=== PATIENT | female | born 2005 | race Caucasian/White ===

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

== ENCOUNTER 2024-03-03 17:45 | Outpatient (REF) | payer MEDICAID, SELFPAY | END 2024-03-03 17:46 | disposition home or self-care (01) | LOC: LBN 17:45 | PROVIDERS: PCP Pediatrics; Visit Provider Physician Assistant | DX: J02.9 Acute pharyngitis, unspecified (principal) | CPT/HCPCS: 87070 ==

== ENCOUNTER 2024-03-30 21:10 | Emergency (ER) | payer MEDICAID, SELFPAY ==
[2024-03-30 21:17] VITALS: BP 150/85; PULSE 70; RESP 20; TEMP 37.1; O2SAT 98
--- NOTE | 2024-03-30 21:27 | W.ED.GENAD ---
Discharge Plan Disposition Patient Disposition: Home Condition: Stable Discharge Details Clinical Impression: Sprain of left shoulder Primary Care Provider: Trell Pittman ED Provider: Trell Araujo Home Meds and New Rx's Prescriptions: New ketorolac 10 mg tablet 10 mg PO QID PRN5 Days Qty: 20 0RF Rx Instructions: maximum total duration of 5 days from all oral, intranasal, or parenteral formulations Continued albuterol sulfate 2.5 mg /3 mL (0.083 %) solution for nebulization 2.5 mg Inhalation Q4H PRN Qty: 90 1RF Rx Instructions: Use 1 vial via nebulizer q4h prn cough/wheeze budesonide-formoterol [Symbicort] 160-4.5 mcg/actuation HFA aerosol inhaler 2 puff Inhalation DAILY Qty: 1 0RF epinephrine [EpiPen 2-Jaswinder] 0.3 mg/0.3 mL auto-injector 0.3 mg IM ONCE Qty: 1 1RF Rx Instructions: use according to package directions for exposure to bee sting albuterol sulfate [Ventolin HFA] 90 mcg/actuation HFA aerosol inhaler See Rx Instructions .ROUTE .COMPLEX Qty: 36 0RF Dose Instruction: INHALE 2 PUFFS BY MOUTH EVERY 4 HOURS NEEDED FOR SHORTNESS OF BREATH OR WHEEZING Rx Instructions: INHALE 2 PUFFS BY MOUTH EVERY 4 HOURS NEEDED FOR SHORTNESS OF BREATH OR WHEEZING All Day Allergy (cetirizine) 10 mg capsule 10 mg PO DAILY Qty: 30 5RF montelukast [Singulair] 10 mg tablet 10 mg PO DAILY Qty: 30 2RF Discharge Instructions Instructions: Shoulder Sprain ED Additional Instructions: You were seen in the emergency department for your left shoulder sprain or strain, you may have a minor rotator cuff tear but this will not become evident for 1 to 2 weeks as you treat symptomatically at home. As we discussed you need to be taking regular dose of Tylenol and in the prescribed ketorolac. Do not take Aleve or Advil with ketorolac. Please rest and ice the shoulder, frequently perform pendulum exercises as we discussed, if you still have pain in 3+ weeks please follow-up with orthopedics for possible rotator cuff evaluation, please return to the emergency department for any sign of neurovascular compromise to the arm. Referrals: [facility] [Provider Group] Trell Pittman MD [Primary Care Provider] - Discharge Data Discharge Date/Time-TO BE ENTERED AT DEPARTURE: 03/30/24 21:41 HPI General Date/Time Provider Initiated Documentation: 03/30/24 21:21. HPI Narrative: 18 year-old female presents to ED today by POV/ambulating with a chief complaint of L shoulder pain, R-hand dominant, with onset today after lifting a heavy tote bag. Quality described as burning type pain, felt shoulder give out, no radiation to numbness/tingling, swelling, deformity, skin changes, neck pain. Severity is described as moderate. Palliating factors include nothing attempted. Provoking factors include nothing specific. Events leading up to the incident/Associated Symptoms: Patient can raise her arm over her head without issue. Patient not anticoagulated. Related Data Home Medications ?Medication ?Instructions ?Recorded ?Confirmed budesonide-formoterol HFA 160 2 puff inhalation DAILY ##1 11/28/18 03/30/24 mcg-4.5 mcg/actuation aerosol inhaler (Symbicort) albuterol sulfate 2.5 mg/3 mL 2.5 mg (3 mL) inhalation Q4H PRN 07/28/22 03/30/24 (0.083 %) solution for nebulization #90 mL epinephrine 0.3 mg/0.3 mL 0.3 mg (0.3 mL) IM ONCE #1 ea 11/06/22 03/30/24 injection, auto-injector (EpiPen 2-Jaswinder) albuterol sulfate 90 mcg/actuation See Rx Instructions .Route 10/26/23 03/30/24 aerosol inhaler (Ventolin HFA) .COMPLEX #36 grams cetirizine 10 mg capsule (All Day 10 mg PO DAILY #30 caps 02/26/24 03/30/24 Allergy (cetirizine)) montelukast 10 mg tablet 10 mg PO DAILY #30 tabs 03/17/24 03/30/24 (Singulair) ketorolac 10 mg tablet 10 mg PO QID PRN 5 days #20 tabs 03/30/24 Previous Rx's ?Medication ?Instructions ?Recorded budesonide-formoterol HFA 160 2 puff inhalation DAILY ##1 11/28/18 mcg-4.5 mcg/actuation aerosol inhaler (Symbicort) albuterol sulfate 2.5 mg/3 mL 2.5 mg (3 mL) inhalation Q4H PRN 07/28/22 (0.083 %) solution for nebulization #90 mL epinephrine 0.3 mg/0.3 mL 0.3 mg (0.3 mL) IM ONCE #1 ea 11/06/22 injection, auto-injector (EpiPen 2-Jaswinder) albuterol sulfate 90 mcg/actuation See Rx Instructions .Route 10/26/23 aerosol inhaler (Ventolin HFA) .COMPLEX #36 grams cetirizine 10 mg capsule (All Day 10 mg PO DAILY #30 caps 02/26/24 Allergy (cetirizine)) montelukast 10 mg tablet 10 mg PO DAILY #30 tabs 03/17/24 (Singulair) ketorolac 10 mg tablet 10 mg PO QID PRN 5 days #20 tabs 03/30/24 Allergies Allergy/AdvReac Type Severity Reaction Status Date / Time venom-honey bee (bee venom Allergy Severe Anaphylaxis Verified 03/30/24 21:21 (honey bee)) adhesive AdvReac Mild Skin Rash Verified 03/30/24 21:21 milk AdvReac Mild mucousy/ Verified 03/30/24 21:21 pleghm Penicillins AdvReac Unknown Unverified 03/30/24 21:21 General Stated Complaint: Orthopedic MARIIA: 4 Review of Systems All systems reviewed & are unremarkable except as noted in HPI and below Exam Narrative Exam Narrative: GENERAL APPEARANCE: Well-nourished, non-toxic, awake and alert, atraumatic, no acute distress. SKIN: Warm, pink, dry, intact, without rashes/lesions/ulcerations. HEAD: Normocephalic, atraumatic, normal hair distribution for gender/age. EYES: Normal conjunctiva, no exudates on lids/lashes. ENT: Nares patent, no circumoral cyanosis, no facial swelling NECK: Supple, trachea midline, painless cervical ROM. LUNGS/CHEST: Non-labored respirations, normal A/P diameter, symmetrical expansion, no chest wall deformity HEART (CV/PV): Regular rate, L radial pulse 2+, no peripheral edema, no JVD. ABDOMEN: Soft, non-distended, no guarding. MSK: Normal ROM, no swelling/deformity to bilateral UEs or LEs, moving all extremities without weakness, no cyanosis, spine midline without tenderness, normal curvature, no overt tenderness or swelling or crepitus to the L shoulder, speeds and empty can negative, full range of motion NEURO: Mental Status AAOx4 - alert to person, place, time, events No facial droop, no forehead involvement. Motor: No focal weakness - strength 5/5 in bilateral UEs and LEs, proximal and distal, symmetric. Sensory: sensation intact to light touch globally. Gait normal: patient ambulated without ataxia into ED room. PSYCH: euthymic, cooperative, pleasant, appropriate speech Course Vital Signs Vital signs: Vital Signs Temperature 37.1 C 03/30/24 21:17 Pulse 70 03/30/24 21:17 Respiratory Rate 20 03/30/24 21:17 Blood Pressure 150/85 H 03/30/24 21:17 Pulse Oximetry 98 03/30/24 21:17 Temperature 37.1 C 03/30/24 21:17 Pulse 70 03/30/24 21:17 Respiratory Rate 20 03/30/24 21:17 Respiratory Effort Normal 03/30/24 21:20 Blood Pressure 150/85 H 03/30/24 21:17 Blood Pressure Position Sitting 03/30/24 21:17 Pulse Oximetry 98 03/30/24 21:17 Oxygen Delivery Method Room Air 03/30/24 21:17 Oxygen Flow Rate 0 03/30/24 21:17 Medical Decision Making This dictation utilizes [id number] dictation software and may contain unedited grammatical errors. 18 year-old female presents to ED today by POV/ambulating with a chief complaint of L shoulder pain, R-hand dominant, with onset today after lifting a heavy tote bag. Quality described as burning type pain, felt shoulder give out, no radiation to numbness/tingling, swelling, deformity, skin changes, neck pain. Severity is described as moderate. Palliating factors include nothing attempted. Provoking factors include nothing specific. Events leading up to the incident/Associated Symptoms: Patient can raise her arm over her head without issue. Patients' medical history: Noncontributory. Family and social history: Noncontributory. Pertinent exam findings / vital signs include full strength and range of motion of the left arm, left radial pulse 2+, speeds and empty can negative. Differential / pathologies of concern include shoulder sprain, not fracture. Diagnostic studies of: -X-ray not warranted. Interventions of: -Rx ketorlac 5 days ED Course/Assessment/Plan: 18-year-old female presents with a minor strain of the shoulder, is full range of motion and strength and has not made any attempts to rest, ice, compress shoulder, recommend OTC analgesics and follow-up with orthopedics or PCP for x-ray if pain persist past 2 weeks for possibly rotator cuff but low suspicion. Findings not consistent with neurovascular compromise, fracture. Disposition of sprain of left shoulder. Patient verbalized understanding of the plan and return to ED criteria and engaged in shared decision making. Medical Records Medical records reviewed: Yes I reviewed the patient's medical records. Quality:[facility] Health Related Social Needs: No Data to Display PFSH All Active Problems (Updated 03/30/24 @ 21:28 by KRISTEN Little) Sprain of left shoulder (Acute) Sore throat (Acute) Anaphylactic reaction to bee sting (Acute) Environmental allergies (Acute) Deviated nasal septum (Acute) Chronic rhinitis (Acute) Dysmenorrhea in adolescent (Acute) Lumbar back pain (Acute) Allergic rhinitis (Acute) Adolescent idiopathic scoliosis of lumbar region (Chronic 08/17/17) Seen by [facility]. Progression unlikely. 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 Other Diabetes PGF, PGGM, Pat uncle Essential hypertension PGM, PGF, MGM, MGF Blood clotting disorder Pat uncle- issue with blood not clotting Heart disease pat G aunt Hyperlipidemia MGM, Pat uncle, PGM Sister Asthma Social History Smoking/Tobacco Use Status: Never Smoking risk assessment performed?: Yes Alcohol Intake: never Drug use: Never Substance use type: does not use Communication Needs: Corrective Lenses Education Level: high school Details: [employer] 11th grade Pets and animals: Yes (4 dogs, 2 cats, rabbit) Pets and animals: dog(s) Seatbelt use: always Helmet use: Yes Fire extinguisher in home: Yes Carbon monox detector in home: Yes Firearms in home: Yes Firearms unloaded and locked: Yes Do you feel safe at home: Yes Do you feel safe in your relationship?: Yes Female Reproductive History Menstrual Age of Menarche: 13 Duration of menses: other control method: none
[2024-03-30] MEDS: Ketorolac 10 MG TAB PO (21:38)
[2024-03-30] MEDS: Acetaminophen 500 MG TAB 1000 MG PO (21:38)
--- OUTSIDE RECORDS SUMMARY | 2024-03-30 21:46 | XMS_ITS | Clinical Summary ---
Author Organization [facility] Address [address] [place] [address] Care Team Providers Care Retail Event Coordinator Name Role Phone Trell Pittman MD Primary Care Provider [phone] Allergies Active Allergy Reactions Criticality Noted Date Comments Adhesive Tape Other (See Comments) 11/26/2008 blisters Bee Venom Protein (Honey Bee) Anaphylaxis High 08/03/2017 Milk Nausea And Vomiting 10/25/2008 And itchy, rash, nasal congestion Other - See Comments 12/08/2011 Dust mites Medications fluticasone propionate (FLONASE) 50 mcg/actuation nasal spray Instill 1 [place] into both nostrils daily. 1 Bottle 5 12/08/19 20 Active inhalational spacing device (AEROCHAMBER)Ind ications:Moderat e persistent asthma without complication Inhale 1 Device as directed daily. Spacer for MDI 1 Each 2 04/28/20 21 Active PROAIR HFA 90 mcg/actuation inhaler Inhale 2 Puffs as directed every 4 hours as needed for Wheezing (cough, short of breath). 3 Each 1 04/28/20 21 Active sodium chloride (AYR ALLERGY AND SINUS NASAL) by nasal route. A ctive albuterol 2.5 mg /3 mL (0.083 %) nebulizer solution Take 3 mL by nebulization 2 times daily. 09/30/19 23 Active Ciclesonide 50 mcg spray,non-aeroso l 100 mcg by nasal route daily. 12.5 g 5 09/15/19 24 Active azelastine (ASTELIN) nasal spray Instill 1-2 Sprays into both nostrils 2 times daily. 30 mL 2 09/15/19 24 Active budesonide-formo terol HFA (SYMBICORT) 160-4.5 mcg/actuation HFA aerosol inhaler inhalerIndicatio ns:Moderate persistent asthma without complication Inhale 2 Puffs as directed 2 times daily. 3 Each 2 09/15/19 24 Active cetirizine (ZYRTEC) 10 mg tablet Take 1 Tablet by mouth daily. 90 Tablet 2 09/15/19 24 Active lansoprazole (PREVACID) 30 mg capsule Take 1 Capsule by mouth daily. 90 Capsule 2 09/15/19 24 Active montelukast (SINGULAIR) 10 mg tablet Take 1 Tablet by mouth at bedtime. 90 Tablet 2 03/17/20 24 Active montelukast (SINGULAIR) 10 mg tablet Take 1 Tablet by mouth at bedtime. 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 Asthma 02/12/2010 Chronic purulent otitis media 03/29/2009 Overview (02/14/2015): TP OR PP ICD10 Update Auto Replacement Resolved Problems Problem Noted Date Diagnosed Date Resolved Date Abdominal pain, generalized 05/05/2012 01/28/2016 Overview (05/05/2012): Normal TTG, IgA 2008 Gastroesophageal reflux disease 02/12/2010 02/06/2013 Overview (05/05/2012): Normal EGD/colonoscopy 01/2011 Simple chronic serous otitis media 03/29/2009 09/17/2010 Overview (02/14/2015): TP OR PP ICD10 Update Auto Replacement Bronchiectasis with acute ex acerbation ([facility]) 11/26/2008 09/17/2010 Chronic otitis media 11/26/2008 011 Encounters Date Type Department Care Team Description 03/17/[address] [phone] Lucy Rodgers MD Medications Refill 01/11/[address] [phone] Lucy Rodgers MD Appointment Related 01/10/2024 15:00 EDT Telemedicine [address] [phone] Lucy Rodgers MD Moderate persistent asthma without complication (Primary Dx) 01/10/[address] [phone] Lucy Rodgers MD Appointment Related (Telehealth appt) from Last 3 Months Immunizations Name Administration Dates Next Due Pneumococcal Polysaccharide (PPSV23) Vaccine (PNEUMOVAX-23) =>2YO SQ/IM 02/13/2010 Surgical History Surgery Date Site/Laterality Comments PYLOROMYOTOMY 3 sets of PE tubes ND BRNCHSC W/BRNCL ALVEOLAR LAVAGE 02/11/2010 ND TYMPANOSTOMY GENERAL ANESTHESIA ADENOIDECTOMY TYMPANOSTOMY TUBE PLACEMENT ND BRNCHSC W/BRNCL ALVEOLAR LAVAGE 02/04/2011 Medical History Medical History Date Comments OM (otitis media) Asthma Always rattley per mom Esophageal reflux Unspecified sinusitis (chronic) Allergic conjunctivitis Scoliosis Stomach problems Sleeping difficulty Hearing loss Allergic rhinitis dust mites and tree pollen Gastroesophageal reflux disease 02/12/2010 Normal EGD/colonoscopy 01/2011 Family History Medical History Relation Comments Food Intolerance Brother lactose Allergies Father environment Diarrhea Maternal Grandmother High Cholesterol Maternal Grandmother Allergies Mother environment, cherie xicillin Constipation Mother Diarrhea Mother Food Intolerance Mother lactose intoler ant Migraines Mother Celiac Disease Other *Other(comment) Paternal Grandfather diverticuli tis Asthma Sister Relation Status Comments Brother Alive Father Alive Maternal Grandmother Mother Alive Other Alive Paternal Grandfather Sister Social History Tobacco Use Types Packs/Day Years Used Date Smoking Tobacco: Never Smokeless Tobacco: Never Tobacco Cessation:Counseling Given: Not Answered Comments:now living in apartment since September; no longer living with a smoker Hunger Vital Sign Answer Date Recorded Within the past 12 months, y ou worried that your food would run out before you got the money to buy more. Never true 09/15/19 24 Within the past 12 months, t he food you bought just didn't last and you didn't have money to get more. Never true 09/15/2023 Interpersonal Safety Answer Date Record ed Physically Hurt Never 12/17/2019 Verbally Threaten Not on file 12/17/2019 Comments Unknown Sex and Gender Information Value Date Recorded Sex Assigned at Not on file Legal Sex Female 18:39 EST Gender Identity Not on file Sexual Orientation Not on file Obstetrics History Growth Chart Information Age Height Weight [id number] th Percentile BMI Percentile Head Circum Head Circum Percentile Date 17 years 172.7 cm (5' 7.99) 59.8 kg (131 lb 13.4 oz) 30.70%* 2023 16 years 173 cm (5' 8.11) 55.7 kg (122 lb 12.7 oz) 15.86%* 2022 15 years 172.8 cm (5' 8.03) 60.1 kg (132 lb 7.9 oz) 43.61%* 2020 13 years 170.6 cm (5' 7.17) 55.7 kg (122 lb 12.7 oz) 46.28%* 2018 12 years 171.6 cm (5' 7.56) 54.2 kg (119 lb 7.8 oz) 37.60%* 2018 11 years 162.6 cm (5' 4) 51.7 kg (114 lb) 64.20%* 2017 11 years 160.5 cm (5' 3.19) 47.3 kg (104 lb 4.4 oz) 53.10%* 2016 10 years 153.1 cm (5' 0.28) 41.1 kg (90 lb 9.7 oz) 50.39%* 2015 9 years 149.3 cm (4' 10.78) 36 kg (79 lb 5.9 oz) 33.34%* 2015 9 years 147.7 cm (4' 10.15) 36.8 kg (81 lb 2.1 oz) 47.96%* 2014 8 years 142 cm (4' 7.91) 34.3 kg (75 lb 9.9 oz) 58.46%* 2014 7 years 140.1 cm (4' 7.16) 31.6 kg (69 lb 10.7 oz) 46.97%* 2013 7 years 134.7 cm (4' 5.03) 28.4 kg (62 lb 8.4 oz) 44.80%* 2012 6 years 131.4 cm (4' 3.73) 25.4 kg (56 lb 1.7 oz) 27.86%* 2012 6 years 130.8 cm (4' 3.5) 25.3 kg (55 lb 12.4 oz) 30.76%* 2011 5 years 127.3 cm (4' 2.12) 24 kg (53 lb) 34.31%* 2011 5 years 123.7 cm (4' 0.7) 22 kg (48 lb 8 oz) 24.26%* 2011 5 years 123.6 cm (4' 0.66) 22.2 kg (48 lb 15.1 oz) 28.42%* 2011 5 years 123.2 cm (4' 0.5) 21.3 kg (47 lb) 16.24%* 2010 5 years 121.9 cm (3' 11.99) 21.3 kg (46 lb 15.3 oz) 23.63%* 2010 5 years 20 kg (44 lb 1.5 oz) 2010 5 years 20 kg (44 lb 1.5 oz) 2010 5 years 120.7 cm (3' 11.52) 20 kg (44 lb 1.5 oz) 9.67%* 2010 4 years 118.9 cm (3' 10.81) 20.5 kg (45 lb 1.4 oz) 22.98%* 28.42%* 2010 4 years 119.8 cm (3' 11.15) 19.8 kg (43 lb 10.4 oz) 8.26%* 11.02%* 2010 4 years 118.5 cm (3' 10.65) 19.8 kg (43 lb 10.4 oz) 14.66%* 17.82%* 2010 4 years 19.6 kg (43 lb 3.4 oz) 2010 4 years 118.1 cm (3' 10.5) 2010 4 years 116.6 cm (3' 9.91) 18.6 kg (41 lb 0.1 oz) 7.86%* 8.18%* 2010 4 years 19.1 kg (42 lb) 2009 3 years 113.6 cm (3' 8.72) 18.6 kg (41 lb 0.1 oz) 24.60%* 25.60%* 2009 3 years 17.6 kg (38 lb 12.8 oz) 2008 2 years 108.7 cm (3' 6.8) 2008 2 years 16.6 kg (36 lb 9.5 oz) 2008 2 years 17.2 kg (37 lb 14.7 oz) 2008 * [facility] (Girls, 2-20 Years) Last Filed Vital Signs Vital Sign Reading Time Taken Comments Blood Pressure 126/70 09/15/2023 1203 EDT Pulse 86 09/15/2023 1203 EDT Temperature 35.9 ??C (96.6 ??F) 08/03/2022 1304 EDT Respiratory Rate 24 09/15/2023 1203 EDT Oxygen Saturation 99% 09/15/2023 1203 EDT Inhaled Oxygen Concentration - - Weight 59.8 kg (131 lb 13.4 oz) 09/15/2023 1203 EDT Height 172.7 cm (5' 7.99) 09/15/2023 1203 EDT Body Mass Index 20.05 09/15/2023 1203 EDT Body Mass Index Percentile 30.70% 09/15/2023 120 3 EDT Growth Chart: [facility] (Girls, 2- 20 Years) Plan of Treatment Upcoming Encounters Date Type Department Care Team (Late st Contact Info) Description 04/24/2024 15:30 EST Telemedicine [facility] Pediatric Pulmonary - [address] [address] Lucy Rodgers MD [address] [place] [phone] Health Maintenance Due Date Last Done Comments Hepatitis C Screen 2004 Asthma Action Plan 04/28/2022 04/28/2021, 01/28/2017 Hepatitis B Vaccine (1 of 3 - 19+ 3-dose series) 12/19/2023 COVID-19 Vaccine (1 - 2023-2 5 season) 2024 Lung Function Test (Spirometry) 09/14/2024 09/15/2023, 09/15/2023, 04/28/2021, Additional history exists Procedures Procedure Name Priority Date/Time Associated Diagnosis Comments PULMONARY FUNCTION TESTING Routine 09/15/2023 11:58 EDT Uncomplicated asthma, unspecified asthma severity, unspecified whether persistent from Last 3 Months or Most Recently Relevant to Health Maintenance Results * PULMONARY FUNCTION TESTING (09/15/2023 11:58 EDT) 09/15/2023 11:5 8 EDT Lucy Rodgers MD PFT ORDERABLES Final Result [facility] PFT from Last 3 Months or Most Recently Relevant to Health Maintenance Insurance [place] Directives For more information, please contact: [phone] * Full Code (Latest Code Status on File) Date Activated Date Inactivated Comments 02/11/2010 14:52 02/14/2010 16:43 * Full Code Date Activated Date Inactivated Comments 11/26/2008 18:07 12/04/2008 2:55 Care Teams Retail Event Coordinator Relationship Specialty Start Date End Date Trell Pittman MD [address] [place] [address] PCP - General 04/10/09
--- OUTSIDE RECORDS SUMMARY | 2024-03-30 21:47 | XMS_ITS | Encounter Summary ---
Author Organization [facility] Address [address] [place] [address] Care Team Providers Care Quartz Mounter Name Role Phone Trell Pittman MD Primary Care Provider [phone] Reason for Visit * Reason Onset Date Comments Letter 08/03/2022 Encounter Details Date Type Department Care Team (Late st Contact Info) Description 08/03/2022 Telephone [facility] Pediatric Pulmonary - [facility] [address] [place] [address] Lucy Rodgers MD [address] [place] [address] Letter Social History Tobacco Use Types Packs/Day Years Used Date Smoking Tobacco: Never Smokeless Tobacco: Never Comments:now living in apart ment since September; no longer living with a smoker Interpersonal Safety Answer Date Record ed Physically Hurt Never 12/17/2019 Verbally Threaten Not on file 12/17/2019 Comments Unknown Sex and Gender Information Value Date Recorded Sex Assigned at Not on file Legal Sex Female 18:39 EST Gender Identity Not on file Sexual Orientation Not on file documented as of this encounter Mental Status * Because of a physical, mental, or emotional condition, do you have serious difficulty concentrating, remembering, or making decisions? (5 years old or older) Answer Entry Date Author Yes 02/13/2010 0:00 EDT Mohit Yusuf RN documented in this encounter Miscellaneous Notes * Telephone Encounter - Meir, Esme - 08/03/2022 [address] Vishal vu to send this letter. Called mom to let her know we cannot email because it is not secure communication. Mom to call back with school RN fax number. When mom calls back, letter is pended and ready to send. Also need to fax med list. * Telephone Encounter - Ebony Abbott - 08/03/2022 1509 EDT Mom is calling she needs a letter with all the medications that Rosario has for the school nurse and that when she is on the steroid she can stay home from school. [email or web address] documented in this encounter Plan of Treatment Upcoming Encounters Date Type Department Care Team (Late st Contact Info) Description 04/24/2024 15:30 EST Telemedicine [facility] Pediatric Pulmonary - [facility] [address] [place], [place] [phone] Lucy Rodgers MD [address] [place] [address] documented as of this encounter Visit Diagnoses Not on filedocumented in this encounter Care Teams Quartz Mounter Relationship Specialty Start Date End Date [place] [address] PCP - General 04/10/09 documented as of this encounter
--- OUTSIDE RECORDS SUMMARY | 2024-03-30 21:47 | XMS_ITS | Encounter Summary ---
Author Organization [facility] Address [address] [place] [address] Care Team Providers Care Golf Ball Molder Name Role Phone Trell Pittman MD Primary Care Provider [phone] Reason for Visit * Reason Onset Date Comments Other 08/07/2022 Encounter Details Date Type Department Care Team (Late st Contact Info) Description 08/07/2022 Telephone [facility] Pediatric Pulmonary - [facility] [address] [place] [address] Lucy Rodgers MD [address] [place] [address] Other Social History Tobacco Use Types Packs/Day Years [...] encounter Miscellaneous Notes * Telephone Encounter - Dischino, Brittany, RN - 08/07/2022 1106 EDT Images from the original note were not included. * Telephone Encounter - Brittany Byrd RN - 08/07/2022 0958 EDT Called Perry back, plan per TIM is to get patient a [place] Vest, phone number did not go to [facility] but some woman's personal voicemail. LM for Lucy (mom) to please call back regarding ordering a [place] Vest, asked that she visit [employer] website to see the [place], there is a measurement guide on there so they can get the two required measurements. Asked for a cb so we can get it started. * Telephone Encounter - Soraya Guillory - 08/07/2022 0947 EDT Perry is calling from [facility] wants to speak to you about getting this pt a new vest Please can you call Perry back documented in this encounter Plan of Treatment Upcoming Encounters Date Type Department Care Team (Late st Contact Info) Description 04/24/2024 15:30 EST Telemedicine [facility] Pediatric Pulmonary - [facility] [address] [place], [place] [address] Lucy Rodgers MD [address] [place] [phone] documented as of this encounter Visit Diagnoses Not on filedocumented in this encounter Care Teams Golf Ball Molder Relationship Specialty Start Date End Date Trell Pittman MD [address] [place] [address] PCP - General 04/10/09 documented as of this encounter
--- OUTSIDE RECORDS SUMMARY | 2024-03-30 21:47 | XMS_ITS | Encounter Summary ---
Author Organization [facility] Address [address] [place] [address] Care Team Providers Care Rn Access Name Role Phone Trell Pittman MD Primary Care Provider [phone] [phone] Reason for Visit * Reason Onset Date Comments Medications Refill 08/04/2022 Encounter Details Date Type Department Care Team (Late st Contact Info) Description 08/04/2022 Telephone [facility] Pediatric Pulmonary - [facility] [address] [place] [address] Lucy Rodgers MD [address] [place] [address] Medications Refill Social History Tobacco Use Types Packs/Day Years [...] Entry Date Author Yes 02/13/2010 0:00 EDT Goodkind, Al icia, RN documented in this encounter Ordered Prescriptions Prescription Sig Dispense Quantity Refills Last Filled Start Date End Date montelukast (SINGULAIR) 10 mg tablet Take 1 Tablet by mouth at bedtime. 90 Tablet 1 08/04/2022 09/15/2023 documented in this encounter Miscellaneous Notes * Telephone Encounter - Vaishali García RN - 08/04/2022 1248 EDT Refilled singulair as prevacid was done yesterday. * Telephone Encounter - Soraya Guillory - 08/04/2022 1230 EDT Mom is calling and needs script refill singulair [place]vacid [place] Please call mom if needed documented in this encounter Plan of Treatment Upcoming Encounters Date Type Department Care Team (Late st Contact Info) Description 04/24/2024 15:30 EST Telemedicine [facility] Pediatric Pulmonary - [facility] [address] [place], [place] [address] Lucy Rodgers MD [address] [place] [phone] documented as of this encounter Visit Diagnoses Not on filedocumented in this encounter Discontinued Medications Medication Sig Discontinue Reason Start Date End Da te montelukast (SINGULAIR) 10 mg tablet Take 1 Tablet by mouth at bedtime. Reorder 04/28/2021 08/04/2022 documented as of this encounter Care Teams Rn Access Relationship Specialty Start Date End Date Trell Pittman MD [address] [place] [address] [place] [address] PCP - General 04/10/09 documented as of this encounter
--- OUTSIDE RECORDS SUMMARY | 2024-03-30 21:47 | XMS_ITS | Encounter Summary ---
Author Organization [facility] Address [address] [place] [address] Care Team Providers Care Head Of Product Name Role Phone Trell Pittman MD Primary Care Provider [phone] Reason for Visit * Reason Onset Date Comments Appointment Related 01/10/2024 Telehealth a ppt Encounter Details Date Type Department Care Team (Late st Contact Info) Description 01/10/2024 Telephone [facility] Pediatric Pulmonary - [facility] [address] [place] [address] Lucy Rodgers MD [address] [place] [address] Appointment Related (Telehealth appt) Social History Tobacco Use Types Packs/Day Years [...] encounter Miscellaneous Notes * Telephone Encounter - Kassi Fritz MA - 01/10/2024 1052 EDT Called and left message for mom to call us back. Would like to pre-screen for telehealth appt documented in this encounter Plan of Treatment Upcoming Encounters Date Type Department Care Team (Late st Contact Info) Description 04/24/2024 15:30 EST Telemedicine [facility] Pediatric Pulmonary - [facility] [address] [place], [place] [address] Lucy Rodgers MD [address] [place] [phone] documented as of this encounter Visit Diagnoses Not on filedocumented in this encounter Care Teams Head Of Product Relationship Specialty Start Date End Date Trell Pittman MD [address] [place] [address] PCP - General 04/10/09 documented as of this encounter
--- OUTSIDE RECORDS SUMMARY | 2024-03-30 21:47 | XMS_ITS | Encounter Summary ---
Author Organization [facility] Address [address] [place] [address] Care Team Providers Care Mangle Roll Operator Name Role Phone Trell Pittman MD Primary Care Provider [phone] [phone] Reason for Visit * Reason Onset Date Comments Appointment Related 12/14/2023 Encounter Details Date Type Department Care Team (Late st Contact Info) Description 12/14/2023 Telephone [facility] Pediatric Pulmonary - [facility] [address] [place] [address] Lucy Rodgers MD [address] [place] [address] Appointment Related Social History Tobacco Use Types Packs/Day Years [...] encounter Miscellaneous Notes * Telephone Encounter - Tyrone aMry - 12/23/2023 0825 EDT Called and left a vm for mom in regards to setting up her televideo appt. I left a message letting her know I added her for a televideo slot this month. I asked for a call back to confirm. * Telephone Encounter - Adan Hansenlin - 12/14/2023 0850 EDT Called mom and left a vm letting them know they missed yesterdays televideo appt. I asked for a call back to schedule for next available televideo appt with Dr Rodgers. documented in this encounter Plan of Treatment Upcoming Encounters Date Type Department Care Team (Late st Contact Info) Description 04/24/2024 15:30 EST Telemedicine [facility] Pediatric Pulmonary - [address] [address] Lucy Rodgers MD [address] [place] [phone] documented as of this encounter Visit Diagnoses Not on filedocumented in this encounter Care Teams Mangle Roll Operator Relationship Specialty Start Date End Date Trell Pittman MD [address] [place] [address] PCP - General 04/10/09 documented as of this encounter
--- OUTSIDE RECORDS SUMMARY | 2024-03-30 21:47 | XMS_ITS | Encounter Summary ---
Author Organization [facility] Address [address] [place] [address] Care Team Providers Care Trackmobile Operator Name Role Phone Trell Pittman MD Primary Care Provider [phone] Reason for Visit * Reason Comments Follow-up Encounter Details Date Type Department Care Team (Late st Contact Info) Description 05/06/2021 13:00 EST Office Visit [facility] ENT- Main [address] [address] Felix Spears MD [address] [place] [address], [address] [place] [address] Bilateral chronic serous otitis media (Primary Dx); Chronic purulent otitis media of both ears; Rhinitis, chronic; Nasal obstruction; Epistaxis Social History Tobacco Use Types Packs/Day Years [...] Mohit Yusuf RN documented in this encounter Progress Notes * Felix Spears MD - 05/06/2021 1300 EST Progress Note Division of Otolaryngology, Head and Neck Surgery Date of Service: 05/06/2021 Provider: Felix Spears MD CHIEF COMPLAINT: Chief Complaint Patient presents with ??? Follow-up HISTORY OF PRESENT ILLNESS: Rosario Ace is a 15 y.o. year old female who comes in today for recurrent otitis media chronic serous otitis media and chronic sinusitis. She is also has some troubles with epistaxis recently. She is in good health otherwise. She is not sure how her hearing is. She has no pain today. She is in good health otherwise. EXAM: Alert cooperative a 15-year-old well-nourished in no distress Voice is normal today Head and face inspection and palpation are both normal salivary glands are normal today facial strength is normal to external ear nose all normal today Eyes are normal today Otoscopy both ear canals are normal is some tympanosclerosis bilaterally. Both middle ear spaces look clear. There may be a little congestion on the right side. Nose septum deviated little bit into the right nasal cavity. Both turbinates are congested there ursula clear rhinitis. Lips teeth and gums all normal for her age Oral cavity oropharynx are normal today Palpation the neck feels no adenopathy or masses Audiogram ordered because of hearing concerns and recurrent ear infections Audiogram demonstrates normal hearing. For details see the audiogram ASSESMENT/PLAN: Encounter Diagnoses Name Primary? Bilateral chronic serous otitis media Yes ??? 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 Rhinitis, chronic ??? Nasal obstruction ??? Epistaxis Follow-up summer 2021 Patient also has immotile cilia syndrome Felix Spears MD documented in this encounter Plan of Treatment Upcoming Encounters Date Type Department Care Team (Late st Contact Info) Description 04/24/2024 15:30 EST Telemedicine [facility] [place] [address] Lucy Rodgers MD [address] [place] [phone] Scheduled Orders Name Type Priority Associated Diagnoses Orde r Schedule HEARING EVALUATION Audiology Routine Bilateral chronic serous otitis media Chronic purulent otitis media of both ears Ordered: 05/06/2021 documented as of this encounter Visit Diagnoses Diagnosis Bilateral chronic serous otitis media- Primary Simple or unspecified chronic serous otitis media Chronic purulent otitis media of both ears Rhinitis, chronic Chronic rhinitis Nasal obstruction Other diseases of nasal cavity and sinuses Epistaxis documented in this encounter Care Teams Trackmobile Operator Relationship Specialty Start Date End Date Trell Pittman MD [address] [place] [address] [place] [address] PCP - General 04/10/09 documented as of this encounter
--- OUTSIDE RECORDS SUMMARY | 2024-03-30 21:47 | XMS_ITS | Encounter Summary ---
Author Organization [facility] Address [address] [place] [address] Care Team Providers Care Head Of Drama Name Role Phone Trell Pittman MD Primary Care Provider [phone] Reason for Visit * Reason Onset Date Comments Coordination Of Care 07/27/2022 Encounter Details Date Type Department Care Team (Late st Contact Info) Description 07/27/[address] [facility] Pediatric Pulmonary - [facility] [address] [place] [address] Lucy Rodgers MD [address] [place] [address] Coordination Of Care Social History Tobacco Use Types Packs/Day Years [...] Al icia, RN documented in this encounter Miscellaneous Notes * Telephone Encounter - Eduardo Byrd RN - 07/28/2022 0839 EDT Emailed Rep with [employer] as something is not correct with what customer service is telling mom whenshe called to get next size vest sent * Telephone Encounter - Eduardo Byrd RN - 07/28/2022 0839 EDT ----- Message from Soraya Guillory sent at 07/27/2022 16:16 EDT ----- Hi eduardo, Mom is calling and [employer] customer service says that dont do the vests for individuals anymore Please can you call mom back documented in this encounter Plan of Treatment Upcoming Encounters Date Type Department Care Team (Late st Contact Info) Description 04/24/2024 15:[address] [facility] Pediatric Pulmonary - [facility] [address], [place] [id number] Lucy Rodgers MD [address] [place] [address] documented as of this encounter Visit Diagnoses Not on filedocumented in this encounter Care Teams Head Of Drama Relationship Specialty Start Date End Date [place] [address] PCP - General 04/10/09 documented as of this encounter
--- OUTSIDE RECORDS SUMMARY | 2024-03-30 21:47 | XMS_ITS | Encounter Summary ---
Author Organization [facility] Address [address] [place] [address] Care Team Providers Care Signal Integrity Engineer Name Role Phone Trell Pittman MD Primary Care Provider [phone] Reason for Visit * Reason Comments Asthma Encounter Details Date Type Department Care Team (Late st Contact Info) Description 08/17/2022 16:00 EDT Telemedicine [facility] Pediatric Pul[facility] - [facility] [place] [address] [place] [address] Lucy Rodgers MD [address] [place] [address] Moderate persistent asthma without complication (Primary Dx); Acute recurrent sinusitis, unspecified location Social History Tobacco Use Types Packs/Day Years [...] Refills Last Filled Start Date End Date cetirizine (ZYRTEC) 10 mg tablet Take 1 Tablet by mouth daily. 90 Tablet 1 08/17/2022 09/15/2023 documented in this encounter Progress Notes * Lilly Gonsalez MA - 08/17/2022 1600 EDT Starting augmentin today, 08/17/2022 (went to pick it up yesterday but pharmacy did not have it available) Pt coughing and wheezing- using albuterol neb and inhaler every 4-6 hours. * Lucy Rodgers MD - 08/17/2022 1600 EDT Images from the original note were not included. Pediatric Pulmonology James Franklin M.D., Lucy Rodgers M.D, Jason Mohan M.D., JULES Tai M.D. [address] [address] Encounter Date: 08/17/2022 Trell Pittman [address] [place], [place] [address] [address] Chief Complaint: Rosario is a 16 y.o. female who is seen by pediatric pulmonology via telehealth video visit for asthma. Rosario is accompanied by her mother who contributed to the history. TELEMEDICINE VIDEO VISIT Today's visit was provided through telemedicine video conferencing: due to distance to clinic and need for management of asthma. I have reviewed the appropriateness of using video technology with the patient with regards to today's visit. The location of the patient: Home Patient location state: Visit Location State: [place] The location of the provider: Office Provider location state: Visit Location State: [place] The following people and their roles were present for today's visit: Appointment Provider: Lucy Rodgers MD The concept of ???Telemedicine?? has been described to the patient.? Patient has been informed of the anticipated benefits and possible risks.? Patient understands the information provided regardingtelemedicine, has had the opportunity to ask questions about this information, and all questions have been answered to patient???s satisfaction. Patient consents for the use of telemedicine in his/her medical care and authorizes the transmission of any relevant medical information to providers and their staff involved in patient???s medical or mental health care. Subjective: Rosario has been doing better from a respiratory standpoint. She no longer has shortness of breath,chest tightness, or wheeze. She does have mild exertional symptoms but is overall improving and notneeding scheduled albuterol consistently as she was. She completed 10 days of prednisone (second 5 day course given due to significant wheezing and worsening symptoms as she finished an initial course of prednisone). She continues to have sinus congestion. She had 1 week of Augmentin. She tried to continuous pickling line pickler helper the second week of the dose (not enough given at initial ED visit) and the pharmacy had a week delay in getting the supply. She is resuming the course now. Typical triggers: Infections / Colds, Environmental Allergies, Air Pollution, Dust Mites, Exercise,Cigarette Smoke Medication Use: Rescue/quick relief medicines: ?? Albuterol MDI. Rosario has needed to use this medication only with colds. Preventive/long-term control: ?? montelukast (SINGULAIR TABLET) 10mg ?? budesonide-formoterol (SYMBICORT HFA) 160mcg-4.5mcg Proper use of chamber / mask: Medication Compliance: Gastrointestinal/Nutrition: Appetite is good. Diet: healthy diet in general Gastroesophageal reflux symptoms are better controlled with PPI. Otolaryngology: Rosario has had sinus congestion. General Health: Overall behavior and activity has been normal. Exercise: moderately active She has been able to return to school and slowly resume activities. Environmental History: There have been no changes to the home environment since the last visit. REVIEW OF SYSTEMS: A complete review of 10 systems was obtained and was negative except listed above. Past Medical History: Diagnosis Date ??? Allergic conjunctivitis ??? Allergic rhinitis dust mites and tree pollen ??? Asthma Always rattley per mom ??? Esophageal reflux ??? Gastroesophageal reflux disease 02/12/2010 Normal EGD/colonoscopy 01/2011 ??? Hearing loss ??? OM (otitis media) ??? Scoliosis ??? Sleeping difficulty ??? Stomach problems ??? Unspecified sinusitis (chronic) Past Surgical History: Procedure Laterality Date ??? ADENOIDECTOMY ??? AL BRNCHSC W/BRNCL ALVEOLAR LAVAGE 02/11/2010 ??? AL BRNCHSC W/BRNCL ALVEOLAR LAVAGE 02/04/2011 ??? AL CREATE EARDRUM OPENING,GEN ANESTH ??? PYLOROMYOTOMY 3 sets of PE tubes ??? TYMPANOSTOMY TUBE PLACEMENT Past Medical and Surgical History was reviewed and updated in PRISM. Family History Problem Relation Age of Onset ??? Allergies Mother environment, amoxicillin ??? Food Intolerance Mother lactose intolerant ??? Constipation Mother ??? Diarrhea Mother ??? Migraines Mother ??? Allergies Father environment ??? Food Intolerance Brother lactose ??? Celiac Disease Other ??? *Other(comment) Paternal Grandfather diverticulitis ??? Diarrhea Maternal Grandmother ??? High Cholesterol Maternal Grandmother ??? Asthma Sister Outpatient Medications Marked as Taking for the 08/17/22 encounter (Appointment) with Lucy Rodgers MD Medication Sig Dispense Refill ??? [] amoxicillin-clavulanate (AUGMENTIN) 875-125 mg per tablet Take 1 Tablet by mouth 2 times daily for 14 days. 28 Tablet 0 ??? budesonide-formoterol HFA (SYMBICORT) 160-4.5 mcg/actuation HFA aerosol inhaler inhaler Inhale 2 Puffs as directed 2 times daily. 3 Each 1 ??? [DISCONTINUED] cetirizine (ZYRTEC) 10 mg tablet Take 1 Tablet by mouth daily. 90 Tablet 1 ??? inhalational spacing device (AEROCHAMBER) Inhale 1 Device as directed daily. Spacer for MDI 1 Each 2 ??? lansoprazole (PREVACID) 30 mg capsule Take 1 Capsule by mouth daily. 90 Capsule 1 ??? lansoprazole (PREVACID) 30 mg capsule Take 1 capsule by mouth daily. 90 capsule 1 ??? montelukast (SINGULAIR) 10 mg tablet Take 1 Tablet by mouth at bedtime. 90 Tablet 1 ??? PROAIR HFA 90 mcg/actuation inhaler Inhale 2 Puffs as directed every 4 hours as needed for Wheezing (cough, short of breath). 3 Each 1 ??? sodium chloride (AYR ALLERGY AND SINUS NASAL) by nasal route. Allergies Allergen Reactions ??? Bee Venom Protein (Honey Bee) Anaphylaxis ??? Adhesive Tape Other (See Comments) blisters ??? Milk Nausea And Vomiting And itchy, rash, nasal congestion ??? Other - See Comments Dust mites Living Conditions ??? Lives with Mother primarily (sees father regularly) dad every other weekend and Tu and Wed ??? Other individuals living in the home brother; sister ??? Parents status Weekdays ??? Education Grade 7 ??? Reported academic performance Excellent Safety and Environmental Exposures ??? Pets Yes 2 cats at mom; 2 dogs at dad ??? Carpets Yes Social History was reviewed and updated in PRISM. Relevant elements of social history can be found in the environmental exposures portion of this note. Objective Data There were no vitals taken for this visit. General Appearance: awake and alert, no acute distress, active and pleasant Head: normocephalic, atraumatic Eye: no ocular erythema or discharge Ear: normally placed and normal external appearance Nose: no discharge Mouth\Throat: moist appearing mucosa Chest\Lungs: no increased respiratory effort or accessory muscle use, no audible wheeze or stridor,cough is absent Abdomen: no apparent distension Heart: no cyanosis Skin: no apparent rashes MSK: symmetric movements with no apparent deficits in coordination or strength Assessment and Plan Rosario is a 16 y.o. female with Moderate Persistent asthma who is recovering from asthma exacerbation and sinusitis. Asthma symptoms are much improved. She is still requiring treatment for sinusitisand has resumed Augmentin after pharmacy delay. Reflux symptoms are improving with PPI. Recommend continuing her current maintenance plan for asthma and allergic rhinitis. I discussed the following treatment plan with Rosario and her mother. Maintenance (Green) Medications: budesonide-formoterol (SYMBICORT HFA) 160mcg-4.5mcg 2 inhalations twice daily Montelukast 10 mg daily Cetirizine 10 mg daily Flonase daily Lansoprazole 30 mg daily Sinus rinses daily and as needed Rescue (Yellow) Medications: albuterol 2-4 puffs every 4 hours as needed Emergency (Red) Medications: albuterol 4 puffs twice and call physician ?? Daily vest, BID or daily plus acapella when sick (manual chest PT if unable to use vest) ?? Ordering [place] vest - on progress ?? Continue Augmentin x 14 day course ?? Followup in September as scheduled, sooner as needed Education / Self Management Goals: Symptomatic treatments reviewed. Patient's condition, differential diagnosis, and Treatment Plan reviewed. Teaching provided for the listed diagnoses and/or medications. Action plan given and discussed. Spacer use discussed. Please feel free to contact us with questions or comments regarding Rosario's care. Sincerely, Lucy Rodgers MD documented in this encounter Plan of Treatment Upcoming Encounters Date Type Department Care Team (Late st Contact Info) Description 04/24/2024 15:30 EST Telemedicine [facility] Pediatric Pulmonary - [facility] [address] [place] [address] Lucy Rodgers MD [address] [place] [phone] documented as of this encounter Visit Diagnoses Diagnosis Moderate persistent asthma without complication- Primary Unspecified asthma Acute recurrent sinusitis, unspecified location documented in this encounter Discontinued Medications Medication Sig Discontinue Reason Start Date End Da te cetirizine (ZYRTEC) 10 mg tablet Take 1 Tablet by mouth daily. Reorder 04/28/2021 08/17/2022 documented as of this encounter Historical Medications * This list may reflect changes made after this encounter. sodium chloride (AYR ALLERGY AND SINUS NASAL) by nasal route. added in this encounter Care Teams Signal Integrity Engineer Relationship Specialty Start Date End Date Trell Pittman MD [address] [place], [place] [address] [address] PCP - General 04/10/09 documented as of this encounter
--- OUTSIDE RECORDS SUMMARY | 2024-03-30 21:47 | XMS_ITS | Encounter Summary ---
Author Organization [facility] Address [address] [place] [address] Care Team Providers Care Technical Sourcing Recruiter Name Role Phone Trell Pittman MD Primary Care Provider [phone] Reason for Visit * Reason Comments Asthma Encounter Details Date Type Department Care Team (Late st Contact Info) Description 04/28/2021 11:00 EST Office Visit [facility] Pediatric Pulmonary - [facility] [address] [place] [address] Lucy Rodgers MD [address] [place] [address] Gastroesophageal reflux disease, unspecified whether esophagitis present (Primary Dx); Moderate persistent asthma without complication; Chronic rhinitis Social History Tobacco Use Types Packs/Day Years [...] on file documented as of this encounter Last Filed Vital Signs Vital Sign Reading Time Taken Comments Blood Pressure 113/65 04/28/2021 1051 EST Pulse 70 04/28/2021 1051 EST Temperature - - Respiratory Rate 16 04/28/2021 1051 EST Oxygen Saturation 100% 04/28/2021 1051 EST Inhaled Oxygen Concentration - - Weight 60.1 kg (132 lb 7.9 oz) 04/28/[address] Height 172.8 cm (5' 8.03) 04/28/2021 1051 EST Body Mass Index 20.13 04/28/2021 1051 EST Body Mass Index Percentile 43.61% 04/28/2021 105 1 EST Growth Chart: [facility] (Girls, 2- 20 Years) documented in this encounter Mental Status * Because of a physical, mental, or emotional condition, do you have serious difficulty concentrating, remembering, or making decisions? (5 years old or older) Answer Entry Date Author Yes 02/13/2010 0:00 Mohit Tinajero RN documented in this encounter Ordered Prescriptions Prescription Sig Dispense Quantity Refills Last Filled Start Date End Date PROAIR HFA 90 mcg/actuation inhaler Inhale 2 Puffs as directed every 4 hours as needed for Wheezing (cough, short of breath). 3 Each 1 04/28/2021 inhalational spacing device (AEROCHAMBER)Indic ations:Moderate persistent asthma without complication Inhale 1 Device as directed daily. Spacer for MDI 1 Each 2 04/28/2021 lansoprazole (PREVACID) 30 mg capsule Take 1 capsule by mouth daily. 90 capsule 1 04/28/2021 4 montelukast (SINGULAIR) 10 mg tablet Take 1 Tablet by mouth at bedtime. 90 Tablet 1 04/28/2021 3 cetirizine (ZYRTEC) 10 mg tablet Take 1 Tablet by mouth daily. 90 Tablet 1 04/28/2021 3 budesonide-formote rol HFA (SYMBICORT) 160-4.5 mcg/actuation HFA aerosol inhaler inhalerIndications :Moderate persistent asthma without complication Inhale 2 Puffs as directed 2 times daily. 3 Each 1 04/28/2021 4 documented in this encounter Progress Notes * Lucy Rodgers MD - 04/28/2021 1100 EST Images from the original note were not included. Pediatric Pulmonology James Franklin M.D., Lucy Rodgers M.D, Jason Mohan M.D., JULES Tai M.D. [address] [address] Encounter Date: 04/28/2021 Trell Genesis Girardpreethijl [facility] [id number] Chief Complaint: Rosario is a 15 y.o. female who is seen in pulmonary clinic for asthma. Rosario is accompanied by her mother who contributed to the history. Her sister also attended the visit. Subjective: Rosario just recovered from covid-19 infection. She did not have much of an increase in respiratorysymptoms during this illness. However, she does have ongoing chronic congestion and chronic wet cough. She had an illness in February and received 10 days of oral steroid for what mom reports as OM, sinusitis, and pneumonia and then received Augmentin, which helped, and another 10 days of oral steroid. She has exertional cough, relief with albuterol. She is only taking Symbicort about half the time (mom thinks maybe even less). She is adherent with using her vest daily. She is taking cetirizine.In the past she hadn't tolerated nasal steroid but is willing to try again. She has frequent refluxsymptoms. She is taking a lot of Tums. She hasn't been sleeping well due to montelukast. No mood changes with this, only sleep. Typical triggers: Infections / Colds, Environmental Allergies, Air Pollution, Dust Mites, Exercise,Cigarette Smoke Classification of Asthma Control: Daytime symptoms: Less than or equal to 2 days/week Nighttime awakenings: Less than or equal to 2 times/month Interference with normal activity: Some limitation Short-acting Beta agonist use for symptom control: Greater than 2 days/week Exacerbations requiring oral systemic corticosteroids: Greater than or equal to 2/year ATAQ Score: 0 Medication Use: Rescue/quick relief medicines: ?? Albuterol MDI. Rosario has needed to use this medication only with colds, only with exercise. Preventive/long-term control: ?? budesonide-formoterol (SYMBICORT HFA) 160mcg-4.5mcg Proper use of chamber / mask: Yes Medication Compliance: not adherent Gastrointestinal/Nutrition: Appetite is good. Diet: healthy diet in general Gastroesophageal reflux symptoms are frequent. Otolaryngology: Rosario has had chronic congestion. There may be allergic symptoms. She has snoring. General Health: Overall behavior and activity has been normal. Exercise: moderately active Environmental History: There have been no changes to the home environment since the last visit. Environmental Tobacco Exposure: No REVIEW OF SYSTEMS: A complete review of [...] History: Procedure Laterality Date ??? ADENOIDECTOMY ??? DC BRNCHSC W/BRNCL ALVEOLAR LAVAGE 02/11/2010 ??? DC BRNCHSC W/BRNCL ALVEOLAR LAVAGE 02/04/2011 ??? DC CREATE EARDRUM OPENING,GEN ANESTH ??? PYLOROMYOTOMY 3 [...] Outpatient Medications Marked as Taking for the 04/28/21 encounter (Office Visit) with Pineda Rodgers MD Medication Sig Dispense Refill ??? budesonide-formoterol HFA (SYMBICORT) 160-4.5 mcg/actuation HFA aerosol inhaler inhaler Inhale 2 Puffs as directed 2 times daily. 3 Each 1 ??? [DISCONTINUED] budesonide-formoterol HFA (SYMBICORT) 160-4.5 mcg/actuation HFA aerosol inhaler inhaler Inhale 2 Puffs as directed 2 times daily. 3 Inhaler 3 ??? cetirizine (ZYRTEC) 10 mg tablet Take 1 Tablet by mouth daily. 90 Tablet 1 ??? [DISCONTINUED] cetirizine (ZYRTEC) 10 mg tablet Take 1 Tab by mouth daily. 90 Tab 2 ??? inhalational spacing device (AEROCHAMBER) Inhale 1 Device as directed daily. Spacer for MDI 1 Each 2 ??? [DISCONTINUED] inhalational spacing device (AEROCHAMBER) Inhale 1 Device as directed daily. Spacer for MDI 1 Device 3 ??? PROAIR HFA 90 mcg/actuation inhaler Inhale 2 Puffs as directed every 4 hours as needed for Wheezing (cough, short of breath). 3 Each 1 ??? [DISCONTINUED] PROAIR HFA 90 mcg/actuation inhaler Inhale 2-4 Puffs as directed every 4 hours as needed for Wheezing (cough, short of breath). 2 Inhaler 2 Allergies Allergen Reactions ??? Bee Venom Protein [...] exposures portion of this note. Objective Data BP 113/65 Pulse 70 Resp 16 Ht 172.8 cm (68.03) Wt 60.1 kg (132 lb 7.9 oz) SpO2 100% BMI 20.13 kg/m?? General Appearance: well appearing, alert, no acute distress, cooperative Head: normocephalic, atraumatic Eye: no injection, no discharge Ear: canals with cerumen Nose: septum midline, edematous mucosa, clear secretions Mouth\Throat: moist mucosa, oropharynx without exudate, erythema or thrush Lymph Nodes: no cervical adenopathy Chest\Lungs: Air entry is good bilaterally, wheezing is not appreciated, crackles are not appreciated, no retractions, expiratory phase is within normal limits, cough is absent Abdomen: abdomen is soft, nontender, and nondistended without hepatosplenomegaly or masses and normoactive bowel sounds are present Heart: S1/S2 RRR and no murmur Skin: Warm and dry, Cyanosis is absent MSK:Clubbing is absent Diagnostic Data PFT's PFTS (Before Albuterol Treatment) FVC (L): 4.01 liters FVC % Pred: 104 FEV1 (L): 3.69 liters FEV 1 % Pred: 106 FEF 25-75% (L/scc): 4.45 FEF 25-75% Pred: 110 PFTS (After Albuterol Treatment) FVC (L) (After Albuterol): 4.03 liters FVC % Pred (After Albuterol): 104 FEV1 (L) (After Albuterol): 3.81 liters FEV 1 % Pred (After Albuterol): 110 FEF 25-75% (L/scc) (After Albuterol): 5.07 FEF 25-75% Pred (After Albuterol): 126 Assessment and Plan Rosario is a 15 y.o. female with Moderate Persistent asthma who is symptomatic with frequent congestion, cough, and reflux symptoms. Discussed importance of adherence to Symbicort. She will retry nasal steroid. Recommend PPI for acid suppression. Will try montelukast in the morning to see if this helps with side effects related to sleep. She should use daily sinus rinses and continue her airway clearance. She still has not had genetic testing for ciliary dyskinesia and this can be discussed again at a future visit. So far she has not been interested in a blood draw. Spirometry (FEV1) is normal without bronchodilator response. I discussed the following treatment plan with Rosario and her mother. Maintenance (Green) Medications: budesonide-formoterol (SYMBICORT HFA) 160mcg-4.5mcg 2 inhalations twice daily Montelukast 10 mg daily in the morning (stop if mood or sleep side effects) Cetirizine 10 mg daily If tolerated, nasal steroid daily Lansoprazole 30 mg daily Sinus rinses daily and as needed Rescue (Yellow) Medications: albuterol 2-4 puffs every 4 hours as needed Emergency (Red) Medications: albuterol 4 puffs twice and call physician ?? Daily vest, BID or daily plus acapella when sick ?? Try montelukast in the morning to see if this helps with sleep side effects ?? Seasonal Influenza Vaccine: Already received. ?? They plan to receive covid-19 vaccination soon ?? Return to clinic in 3 months, sooner if needed Education / Self Management Goals: Symptomatic treatments reviewed. Patient's condition, differential diagnosis, and Treatment Plan reviewed. Teaching provided for the listed diagnoses and/or medications. Action plan given and discussed. Spacer use discussed. Follow up if symptoms persist, increase, or as instructed. Please feel free to contact us with questions or comments regarding Rosario's care. Sincerely, Lucy Rodgers MD documented in this encounter Plan of Treatment Upcoming Encounters Date Type Department Care Team (Late st Contact Info) Description 04/24/2024 15:30 EST Telemedicine [facility] Pediatric Pulmonary - [facility] [address] [place] [address] Lucy Rodgers MD [address] [place] [id number] documented as of this encounter Visit Diagnoses Diagnosis Gastroesophageal reflux disease, unspecified whether esophagitis present- Primary Moderate persistent asthma without complication Unspecified asthma Chronic rhinitis documented in this encounter Discontinued Medications Medication Sig Discontinue Reason Start Date End Da te inhalational spacing device (AEROCHAMBER)Indications :Moderate persistent asthma without complication Inhale 1 Device as directed daily. Spacer for MDI Reorder 01/28/2017 04/28/2021 PROAIR HFA 90 mcg/actuation inhaler Inhale 2-4 Puffs as directed every 4 hours as needed for Wheezing (cough, short of breath). Reorder 02/06/2019 04/28/2021 cetirizine (ZYRTEC) 10 mg tablet Take 1 Tab by mouth daily. Reorder 09/04/2019 04/28/2021 budesonide-formoterol HFA (SYMBICORT) 160-4.5 mcg/actuation HFA aerosol inhaler inhalerIndications:Moder ate persistent asthma without complication Inhale 2 Puffs as directed 2 times daily. Reorder 09/06/2019 04/28/2021 montelukast (SINGULAIR) 10 mg tablet Take 1 Tab by mouth at bedtime. Reorder 12/08/2019 04/28/2021 documented as of this encounter Care Teams Technical Sourcing Recruiter Relationship Specialty Start Date End Date Trell Pittman MD [address] [place] [address] PCP - General 04/10/09 documented as of this encounter
--- OUTSIDE RECORDS SUMMARY | 2024-03-30 21:47 | XMS_ITS | Encounter Summary ---
Author Organization [facility] Address [address] [place] [address] Care Team Providers Care Store Cashier Name Role Phone Trell Pittman MD Primary Care Provider [phone] [phone] Reason for Visit * Reason Onset Date Comments Other 07/28/2022 Encounter Details Date Type Department Care Team (Late st Contact Info) Description 07/28/[address] [facility] Pediatric Pulmonary - [facility] [address] [place] [address] Lucy Rodgers MD [address] [place] [address] Other Social History Tobacco Use [...] encounter Miscellaneous Notes * Telephone Encounter - Underwood, Esme - 07/28/2022 0949 EDT Has been sick about 6 days. Saw meat butcher but not her usual one. On exam reportedly inspiratory and expiratory wheezing present. No testing to see what this illness is. Mom just getting over strep/headcold. Rosario c/o trouble breathing and sore throat. Marine Painter started steroid burst-prednisone 60 mg daily x5 days. Started burst yesterday. Adherent with symbicort 2 puffs BID w/ spacer. Doing Q4 albuterol inhaler. Cant do vest d/t size issues (we are working on this) Manual chest PT-3 x daily Acapella-several times a day Providing some relief. Facial pressure with nosebleed today for 30 minutes before cessation. Plan to have mom return to meat butcher today to have her reevaluated with worsening sxs. Mom debating if she wants to bring her to see the same meat butcher or go to ER because she was not thrilled with the care Rosario received at meat butcher yesterday. Advised mom meat butcher can always call and speak with our building inspection engineer sinker puller. Advised mom to continue with current treatments she has been doing. Discussed nosebleed care of pinching bridge of nose and leading head forward not back. Advised mom if cannot get bleeding under control at home within 20-30 minutes may need to be evaluated at ER. Will route to Dr. Rodgers for any additional input. * Telephone Encounter - Soraya Guillory - 07/28/2022 0965 EDT Mom called and pt is wheezing and is on steroids and is having bloody noses. Last night had a .0. Normal temperature now but has had advil. Mom has no idea what to do now Please can you call mom back documented in this encounter Plan of Treatment Upcoming Encounters Date Type Department Care Team (Late st Contact Info) Description 04/24/2024 15:30 EST Telemedicine [facility] Pediatric Pulmonary - [address] [id number] Lucy Rodgers MD [address] [place] [address] documented as of this encounter Visit Diagnoses Not on filedocumented in this encounter Care Teams Store Cashier Relationship Specialty Start Date End Date Trell Pittman MD [address] [place] [address] [place] [address] PCP - General 04/10/09 documented as of this encounter
--- OUTSIDE RECORDS SUMMARY | 2024-03-30 21:47 | XMS_ITS | Encounter Summary ---
Author Organization [facility] Address [address] [place] [address] Care Team Providers Care Gear Inspector Name Role Phone Trell Pittman MD Primary Care Provider [phone] [phone] Reason for Visit * Reason Onset Date Comments Appointment Related 10/06/2021 Encounter Details Date Type Department Care Team (Late st Contact Info) Description 10/06/2021 Telephone [facility] Pediatric Pulmonary - [facility] [address] [place] [address] Lucy Rodgers MD [address] [place] [address] Appointment Related Social History Tobacco [...] encounter Miscellaneous Notes * Telephone Encounter - Lilly Gonsalez MA - 10/06/2021 1353 EDT Spoke to mom to pre-screen Rosario for video appointment. Mom stated that Rosario did not get her PFTs done at [facility] therefore she feels the televideo should be rescheduled. documented in this encounter Plan of Treatment Upcoming Encounters Date Type Department Care Team (Late st Contact Info) Description 04/24/2024 15:30 EST Telemedicine [facility] Pediatric Pulmonary - [facility] [address] [place] [address] Lucy Rodgers MD [address] [place] [phone] documented as of this encounter Visit Diagnoses Not on filedocumented in this encounter Care Teams Gear Inspector Relationship Specialty Start Date End Date Trell Pittman MD [address] [place] [address] PCP - General 04/10/09 documented as of this encounter
--- OUTSIDE RECORDS SUMMARY | 2024-03-30 21:47 | XMS_ITS | Encounter Summary ---
Author Organization [facility] Address [address] [place] [address] Care Team Providers Care Senior Hardware Engineer Name Role Phone Trell Pittman MD Primary Care Provider [phone] [phone] Encounter Details Date Type Department Care Team (Late st Contact Info) Description 07/04/2021 Orders Only [address] [id number] Kaylah Almanzar RN Uncomplicated asthma, unspecified asthma severity, unspecified whether persistent (Primary Dx) Social History Tobacco Use Types Packs/Day Years [...] Mohit Yusuf RN documented in this encounter Plan of Treatment Upcoming Encounters Date Type Department Care Team (Late st Contact Info) Description 04/24/2024 15:30 EST Telemedicine [address], [place] [address] Lucy Rodgers MD [address] [place] [phone] documented as of this encounter Visit Diagnoses Diagnosis Uncomplicated asthma, unspecified asthma severity, unspecified whether persistent- Primary documented in this encounter Care Teams Senior Hardware Engineer Relationship Specialty Start Date End Date Trell Pittman MD [address] [place] [address] [place] [address] PCP - General 04/10/09 documented as of this encounter
--- OUTSIDE RECORDS SUMMARY | 2024-03-30 21:47 | XMS_ITS | Encounter Summary ---
Author Organization [facility] Address [address] [place] [address] Care Team Providers Care Security Software Engineer Name Role Phone Trell Pittman MD Primary Care Provider [phone] [phone] Reason for Visit * (Routine/Next Available) - Receiving Office to Obtain Authorization Specialty Diagnoses / Procedures Referred By Paula azul Referred To Contact Procedures XR OUTSIDE IMAGES CHEST Imaging, External Referral ID Status Reason Start Date Expiration Date Visits Requested Visits Authorized [id number] Receiving Office to Obtain Authorization 07/28/2022 1 1 Encounter Details Date Type Department Care Team (Latest Contact Info) Description 07/28/2022 21:45 EDT - 07/28/2022 23:59 EDT Hospital Encounter [facility] Secondary Reads [place] Discharge Disposition: Home or Self Care Social History Tobacco Use Types Packs/Day [...] Mohit Yusuf RN documented in this encounter Medications at Time of Discharge fluticasone propionate (FLONASE) 50 mcg/actuation nasal spray Instill 1 [place] into both nostrils daily. 1 Bottle 5 12/08/2019 inhalational spacing device (AEROCHAMBER)Indic ations:Moderate persistent asthma without complication Inhale 1 Device as directed daily. Spacer for MDI 1 Each 2 04/28/2021 PROAIR HFA 90 mcg/actuation inhaler Inhale 2 Puffs as directed every 4 hours as needed for Wheezing (cough, short of breath). 3 Each 1 04/28/2021 budesonide-formote rol HFA (SYMBICORT) 160-4.5 mcg/actuation HFA aerosol inhaler inhalerIndications :Moderate persistent asthma without complication Inhale 2 Puffs as directed 2 times daily. 3 Each 1 04/28/2021 4 cetirizine (ZYRTEC) 10 mg tablet Take 1 Tablet by mouth daily. 90 Tablet 1 04/28/2021 3 lansoprazole (PREVACID) 30 mg capsule Take 1 capsule by mouth daily. 90 capsule 1 04/28/2021 4 montelukast (SINGULAIR) 10 mg tablet Take 1 Tablet by mouth at bedtime. 90 Tablet 1 04/28/2021 3 documented as of this encounter Discharge Disposition Disposition Code Departure Means Destination Home or Self Care documented in this encounter Plan of Treatment Upcoming Encounters Date Type Department Care Team (Late st Contact Info) Description 04/24/2024 15:30 EST Telemedicine [facility] Pediatric Pulmonary - Main [address] [id number] Lucy Rodgers MD [address] [place] [address] documented as of this encounter Procedures Procedure Name Priority Date/Time Associated Diagnosis Comments XR OUTSIDE IMAGES CHEST Routine 07/28/2022 21:45 EDT documented in this encounter Results * XR OUTSIDE IMAGES CHEST (07/28/2022 21:45 EDT) Narrative 07/28/2022 21:46 EDT This is a non-reportable exam. us External Imaging IMG OTHER IMAGING ORDERABLES Fi nal Result documented in this encounter Visit Diagnoses Not on filedocumented in this encounter Care Teams Security Software Engineer Relationship Specialty Start Date End Date Trell Pittman MD [address] [place] [address] PCP - General 04/10/09 documented as of this encounter
--- OUTSIDE RECORDS SUMMARY | 2024-03-30 21:47 | XMS_ITS | Encounter Summary ---
Author Organization [facility] Address [address] [place] [address] Care Team Providers Care Theatrical Trouper Name Role Phone Trell Pittman MD Primary Care Provider [phone] [phone] Reason for Visit * Reason Comments Asthma Encounter Details Date Type Department Care Team (Late st Contact Info) Description 01/10/2024 15:00 EDT Telemedicine [facility] Pediatric Pulmonary - [facility] [address] [place] [address] Lucy Rodgers MD [address] [place] [address] Moderate persistent asthma without complication (Primary Dx) Social History Tobacco Use Types [...] Progress Notes * Lucy Rodgers MD - 01/10/2024 1500 EDT Rosario didn't attend the video visit. Our office will reach out to reschedule. documented in this encounter Plan of Treatment Upcoming Encounters Date Type Department Care Team (Late st Contact Info) Description 04/24/2024 15:30 EST Telemedicine [facility] Pediatric Pulmonary - [address] [phone] Lcuy Rodgers MD [address] [place] [phone] documented as of this encounter Visit Diagnoses Diagnosis Moderate persistent asthma without complication- Primary Unspecified asthma documented in this encounter Care Teams Theatrical Trouper Relationship Specialty Start Date End Date Trell Pittman MD [address] [place] [address] PCP - General 04/10/09 documented as of this encounter
--- OUTSIDE RECORDS SUMMARY | 2024-03-30 21:47 | XMS_ITS | Encounter Summary ---
Author Organization [facility] Address [address] [place] [address] Care Team Providers Care Floor Sanding Machine Operator Name Role Phone Trell Pittman MD Primary Care Provider [phone] [phone] Encounter Details Date Type Department Care Team (Late st Contact Info) Description 07/28/2022 Telephone [facility] Pediatric Pulmonary - [facility] [address] [place], [place] [phone] uLcy Rodgers MD [address] [place] [address] Social History Tobacco Use Types Packs/Day Years [...] encounter Miscellaneous Notes * Telephone Encounter - Lucy Rodgers MD - 07/28/2022 0824 EDT Call from ED physician seeing Rosario carvajal. Rosario presented with chest tightness that isn't yet improving. She has had 6 days of sore throat, runny nose, now with yellow sputum and chest tightness. She has been seen in the primary care clinic and was started on prednisone 60 mg yesterday and took the second dose today. Her mom says that usually at this point she is feeling much better. She had received duonebs in the peds office with some relief but then had ongoing chest tightness at home. Her vest is too small (family has called the DME to upsize) so they are doing manual chest PT which helps some. She had CXR in the ED that was not remarkable and received albuterol. She presented to the ED well-appearing and with normal vitals despite feeling unwell. She has wheeze on exam. They do feel she is stable for discharge and home management. Discussed that her baseline is that she is healthy with a normal lung exam and normal lung function. She does have asthma and I have concerns about poor symptom perception and poor adherence to maintenance therapy putting her at risk for worse exacerbation. Agree with continuing systemic corticosteroids. She can use albuterol 4 puffs or neb every 3-4 hours but should return to care if worsening or if needing albuterol more often. Due to herPCD and impaired airway clearance, reasonable to offer antibiotics (augmetin) at this point since she is producing more sputum and is responding to airway clearance therapy. We can move up her pulmonary visit if needed, otherwise she has followup scheduled 08/03. documented in this encounter Plan of Treatment Upcoming Encounters Date Type Department Care Team (Late st Contact Info) Description 04/24/2024 15:30 EST Telemedicine [facility] Pediatric Pulmonary - [address] [address] Lucy Rodgers MD [address] [place] [address] documented as of this encounter Visit Diagnoses Not on filedocumented in this encounter Care Teams Floor Sanding Machine Operator Relationship Specialty Start Date End Date Trell Pittman MD [address] [place] [address] PCP - General 04/10/09 documented as of this encounter
--- OUTSIDE RECORDS SUMMARY | 2024-03-30 21:47 | XMS_ITS | Referral Summary ---
Author Organization [facility] Address [address] [place] [address] Care Team Providers Care General Lithographic Worker Name Role Phone Trell Pittman MD Primary Care Provider [phone] [phone] Encounters Date Type Department Care Team Description 03/17/[address] [phone] Lucy Rodgers MD Medications Refill 01/11/[address] [phone] Lucy Rodgers MD Appointment Related 01/10/[address] [phone] Lucy Rodgers MD Appointment Related (Telehealth appt) 01/10/2024 15:00 EDT Telemedicine [address] [phone] Lucy Rodgers MD Moderate persistent asthma without complication (Primary Dx) from Last 3 Months Allergies Active Allergy Reactions Criticality Noted Date Comments Adhesive Tape Other (See Comments) 11/26/2008 blisters Bee Venom Protein (Honey Bee) Anaphylaxis High 08/03/2017 Milk Nausea And Vomiting 10/25/2008 And itchy, rash, nasal congestion Other - See Comments 12/08/2011 Dust mites Medications fluticasone propionate (FLONASE) 50 mcg/actuation nasal spray Instill 1 [place] into both nostrils daily. 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 ([facility]) 11/26/2008 09/17/2010 Chronic otitis media 11/26/2008 011 Immunizations Name Administration Dates Next Due Pneumococcal Polysaccharide (PPSV23) Vaccine (PNEUMOVAX-23) =>2YO SQ/IM 02/13/2010 Social History Tobacco Use Types Packs/Day Years [...] on file Sexual Orientation Not on file Last Filed Vital Signs Vital Sign Reading [...] 30.70% 09/15/2023 120 3 EDT Growth Chart: [facility] (Girls, 2- 20 Years) Mental Status * Because of a physical, mental, or emotional condition, do you have serious difficulty concentrating, remembering, or making decisions? (5 years old or older) Answer Entry Date Author Yes 02/13/2010 0:00 EDT Mohit Yusuf RN Plan of Treatment Upcoming Encounters Date Type Department Care Team (Late st Contact Info) Description 04/24/2024 15:30 EST Telemedicine [facility] Pediatric Pulmonary - Main [place] [address] [place], [place] [phone] Lucy Rodgers MD [address] [place] [address] Procedures Procedure Name Priority Date/Time Associated Diagnosis Comments PULMONARY FUNCTION TESTING Routine 09/15/2023 11:58 EDT Uncomplicated asthma, unspecified asthma severity, unspecified whether persistent from Last 3 Months or Most Recently Relevant to Health Maintenance Results * PULMONARY FUNCTION TESTING (09/15/2023 11:58 EDT) 09/15/2023 11:5 8 EDT us Lucy Rodgers MD PFT ORDERABLES Final Result [facility] PFT from Last 3 Months or Most Recently Relevant to Health Maintenance Insurance [place] Advance Directives For more information, please contact: [phone] * Full Code (Latest Code Status on File) Date Activated Date Inactivated Comments 02/11/2010 14:52 02/14/2010 16:43 * Full Code Date Activated Date Inactivated Comments 11/26/2008 18:07 12/04/2008 2:55 Care Teams General Lithographic Worker Relationship Specialty Start Date End Date Trell Pittman MD [address] [place] [address] PCP - General 04/10/09
--- OUTSIDE RECORDS SUMMARY | 2024-03-30 21:47 | XMS_ITS | Encounter Summary ---
Author Organization [facility] Address [address] [place] [address] Care Team Providers Care Resistance Machine Welder Setter Name Role Phone Trell Pittman MD Primary Care Provider [phone] [phone] Reason for Visit * Reason Comments Asthma Encounter Details Date Type Department Care Team (Late st Contact Info) Description 12/13/2023 15:00 EDT Telemedicine [facility] Pediatric Pulmonary - [facility] [address] [place] [address] Lucy Rodgers MD [address] [place] [address] Moderate persistent asthma without complication [...] Progress Notes * Lucy Rodgers MD - 12/13/2023 1500 EDT Rosario did not attend the televideo visit, will offer another appt. documented in this encounter Plan of Treatment Upcoming Encounters Date Type Department Care Team (Late st Contact Info) Description 04/24/2024 15:30 EST Telemedicine [facility] Pediatric Pulmonary - [address] [phone] Lucy Rodgers MD [address] [place] [phone] documented as of this encounter Visit Diagnoses Diagnosis Moderate persistent asthma without complication- Primary Unspecified asthma documented in this encounter Care Teams Resistance Machine Welder Setter Relationship Specialty Start Date End Date Trell Pittman MD [address] [place] [address] PCP - General 04/10/09 documented as of this encounter
--- OUTSIDE RECORDS SUMMARY | 2024-03-30 21:47 | XMS_ITS | Encounter Summary ---
Author Organization [facility] Address [address] [place] [address] Care Team Providers Care Branch Operations Manager Name Role Phone Trell Pittman MD Primary Care Provider [phone] [phone] Reason for Visit * Reason Onset Date Comments Appointment Related 09/05/2021 Encounter Details Date Type Department Care Team (Late st Contact Info) Description 09/05/2021 Telephone [facility] Pediatric Pulmonary - [facility] [address] [place] [address] Lucy Rodgers MD [address] [place] [address] Appointment Related Social History Tobacco [...] encounter Miscellaneous Notes * Telephone Encounter - Kaylah Almanzar RN - 09/05/2021 1229 EDT Spoke with pt's mom, Lucy. She confirmed that Rosario has done PFTs there in the past. Faxing PFT order to be done prior to televideo appt with Dr. Rodgers. * Telephone Encounter - Kaylah Almanzar RN - 09/05/2021 1044 EDT LM with pulmonology department at [facility] requesting a call back to confirm if they're able to do a pft. * Telephone Encounter - Shwetha Nichols - 09/05/2021 0938 EDT Called mom to schedule missed televid appt. Scheduled Mom wondering if this time she can get a PFT done at [facility] as she lives two hoursaway and would rather not come all the way for a PFT documented in this encounter Plan of Treatment Upcoming Encounters Date Type Department Care Team (Late st Contact Info) Description 04/24/2024 15:30 EST Telemedicine [facility] Pediatric Pulmonary - [facility] [address] [place], [place] [address] Lucy Rodgers MD [address] [place] [phone] documented as of this encounter Visit Diagnoses Not on filedocumented in this encounter Care Teams Branch Operations Manager Relationship Specialty Start Date End Date Trell Pittman MD [address] [place] [address] PCP - General 04/10/09 documented as of this encounter
--- OUTSIDE RECORDS SUMMARY | 2024-03-30 21:47 | XMS_ITS | Encounter Summary ---
Author Organization [facility] Address [address] [place] [address] Care Team Providers Care Fisher Weir Name Role Phone Trell Pittman MD Primary Care Provider [phone] [phone] Reason for Referral * Test (Routine/Next Available) - Authorization Not Required Specialty Diagnoses / Procedures Referred By Contvera t Referred To Contact Diagnoses Uncomplicated asthma, unspecified asthma severity, unspecified whether persistent Procedures PULMONARY FUNCTION TESTING Lucy Rodgers MD Phone: tel: fax: Referral ID Status Reason Start Date Expiration Date Visits Requested Visits Authorized [id number] Authorization Not Required 1 1 1 Encounter Details Date Type Department Care Team (Latest Contact Info) Description 04/28/2021 10:00 EST - 04/28/2021 23:59 EST Hospital Encounter [facility] Pulmonary Function Lab - Main [place] [address] [place] [address] Uncomplicated asthma, unspecified asthma severity, unspecified whether persistent Discharge Disposition: Home or Self Care Social [...] (FLONASE) 50 mcg/actuation nasal spray Instill 1 [place] into both nostrils daily. 1 Bottle 5 [...] or Self Care documented in this encounter Progress Notes * Amy Maza RT - 04/28/2021 1000 EST Testing was performed and recorded in [employer]. See complete report in Procedures. documented in this encounter Plan of Treatment Upcoming Encounters Date Type Department Care Team (Late st Contact Info) Description 04/24/2024 15:30 EST Telemedicine [facility] Pediatric Pulmonary - [place] [address] [place], [place] [address] Lucy Rodgers MD [address] [place] [phone] documented as of this encounter Procedures Procedure Name Priority Date/Time Associated Diagnosis Comments PULMONARY FUNCTION TESTING Routine 04/28/2021 10:16 EST Uncomplicated asthma, unspecified asthma severity, unspecified whether persistent documented in this encounter Results * PULMONARY FUNCTION TESTING (04/28/2021 10:16 EST) 04/28/2021 10:1 6 EST us Lucy Rodgers MD PFT ORDERABLES Final Result [facility] PFT documented in this encounter Visit Diagnoses Diagnosis Uncomplicated asthma, unspecified asthma severity, unspecified whether persistent documented in this encounter Administered Medications Inactive Administered Medications - up to 3 most recent administrations Medication Order MAR Action Action Date Dose Rate Site albuterol inhaler 180 mcg 180 mcg (2 Puff), inhalation, Once (Without Time Specified), 1 dose, Starting on Wed04/28/21 at 1047, Until Wed04/28/21 at 1025, Routine, Intraprocedure Given 04/28/2021 10:25 EST 180 mcg documented in this encounter Orders Medications Ordered That Janes ht Not Have Been Administered Count Last Ordered Date First Ordered Date albuterol inhaler 180 mcg 1 04/28/2021 documented in this encounter Care Teams Fisher Weir Relationship Specialty Start Date End Date Trell Pittman MD [address] [place] [address] [place] [address] PCP - General 04/10/09 documented as of this encounter
--- OUTSIDE RECORDS SUMMARY | 2024-03-30 21:47 | XMS_ITS | Encounter Summary ---
Author Organization [facility] Address [address] [place] [address] Care Team Providers Care Railroad Engineer Name Role Phone Trell Pittman MD Primary Care Provider [phone] [phone] Reason for Visit * Reason Onset Date Comments Orders (Non Pre-visit) 08/20/2022 Encounter Details Date Type Department Care Team (Late st Contact Info) Description 08/20/2022 Telephone [facility] Pediatric Pulmonary - [facility] [address] [place] [address] Lucy Rodgers MD [address] [place] [address] Orders (Non Pre-visit) Social History Tobacco Use Types Packs/Day Years [...] encounter Miscellaneous Notes * Telephone Encounter - Brittany Byrd RN - 08/21/2022 1203 EDT Faxed order to [facility], as patients over 15 Years do not need measurements * Telephone Encounter - Brittany Byrd RN - 08/21/2022 0837 EDT Called Lorraine back, I already spoke with Perry regarding this patient. We are planning to order a [place]elo from [facility], I have left messages for mom to call back as I need measurements to be taken soI can complete that order. She appreciated the call back. Called Lucy (mom) discussed the measurements I need for the Tupelo order. Mid Torso- which is mid chest ie bra band size Shoulder Strap Adjustment which is front clavicle to back shoulder blade Clavicle-Bottom rib She will call me back when she takes those measurements. * Telephone Encounter - Yefri Abernathy - 08/20/2022 1022 EDT Lorraine from [facility] calling looking to get an order sent over for Vest as well as last office visit notes they are all set with everything else just needed order for vest & OV notes documented in this encounter Plan of Treatment Upcoming Encounters Date Type Department Care Team (Late st Contact Info) Description 04/24/2024 15:30 EST Telemedicine [facility] Pediatric Pulmonary - [facility] [address] [place] [address] Lucy Rodgers MD [address] [place] [address] documented as of this encounter Visit Diagnoses Not on filedocumented in this encounter Care Teams Railroad Engineer Relationship Specialty Start Date End Date Trell Pittman MD [address] [place] [address] PCP - General 04/10/09 documented as of this encounter
--- OUTSIDE RECORDS SUMMARY | 2024-03-30 21:47 | XMS_ITS | Encounter Summary ---
Author Organization [facility] Address [address] [place] [address] Care Team Providers Care Account Development Representative Name Role Phone Trell Pittman MD Primary Care Provider [phone] [phone] Reason for Visit * Reason Onset Date Comments Appointment Related 08/04/2021 Encounter Details Date Type Department Care Team (Late st Contact Info) Description 08/04/2021 Telephone [facility] Pediatric Pulmonary - [facility] [address] [place] [address] Lucy Rodgers MD [address] [place] [address] Appointment Related Social History Tobacco [...] encounter Miscellaneous Notes * Telephone Encounter - Shwetha Nichols - 08/25/2021 0951 EDT LM to schedule missed televid appt with Dr. Rodgers Asked for cb * Telephone Encounter - Shwetha Nichols - 08/04/2021 0812 EDT LM for mom to reschedule missed televid appt w/ Dr. Rodgers Asked for cb documented in this encounter Plan of Treatment Upcoming Encounters Date Type Department Care Team (Late st Contact Info) Description 04/24/2024 15:30 EST Telemedicine [facility] Pediatric Pulmonary - [address] [address] Lucy Rodgers MD [address] [place] [phone] documented as of this encounter Visit Diagnoses Not on filedocumented in this encounter Care Teams Account Development Representative Relationship Specialty Start Date End Date Trell Pittman MD [address] [place] [address] PCP - General 04/10/09 documented as of this encounter
--- OUTSIDE RECORDS SUMMARY | 2024-03-30 21:47 | XMS_ITS | Encounter Summary ---
Author Organization [facility] Address [address] [place] [address] Care Team Providers Care Template Clerk Name Role Phone Trell Pittman MD Primary Care Provider +1 -[phone] Reason for Visit * Reason Comments Other * Test (Routine/Next Available) - Authorization Not Required Specialty Diagnoses / Procedures Referred By Contac t Referred To Contact Diagnoses Uncomplicated asthma, unspecified asthma severity, unspecified whether persistent Procedures PULMONARY FUNCTION TESTING Lucy Rodgers MD Phone: tel: fax: Referral ID Status Reason Start Date Expiration Date Visits Requested Visits Authorized [id number] Authorization Not Required 05/24/2023 3 3 Encounter Details Date Type Department Care Team (Late st Contact Info) Description 09/15/2023 12:00 EDT Nurse Only [facility] Pediatric Pulmonary - [facility] [address] [place], [place] [address] Nurse, Proc [facility] Effie Contreras RN Uncomplicated asthma, unspecified asthma severity, unspecified [...] documented in this encounter Progress Notes * Kaylah Almanzar RN - 09/15/2023 1200 EDT PFT pre/post performed, patient able to demonstrate proper technique. Patient cooperative with age appropriate effort, best efforts charged in flowsheet. I was supervised by Lucy Rodgers MD who was present and immediately available in the office suite. documented in this encounter Plan of Treatment Upcoming Encounters Date Type Department Care Team (Late st Contact Info) Description 04/24/2024 15:30 EST Telemedicine [facility] Pediatric Pulmonary - Main [address] [id number] Lucy Rodgers MD [address] [place] [phone] documented as of this encounter Procedures Procedure Name Priority Date/Time Associated Diagnosis Comments PULMONARY FUNCTION TESTING Routine 09/15/2023 11:58 EDT Uncomplicated asthma, unspecified asthma severity, unspecified whether persistent documented in this encounter Results * PULMONARY FUNCTION TESTING (09/15/2023 11:58 EDT) 09/15/2023 11:5 8 EDT us Lucy Rodgers MD PFT ORDERABLES Final Result [facility] PFT documented in this encounter Visit Diagnoses Diagnosis Uncomplicated asthma, unspecified asthma severity, unspecified whether persistent- Primary documented in this encounter Care Teams Template Clerk Relationship Specialty Start Date End Date Trell Pittman MD [address] [place] [address] PCP - General 04/10/09 documented as of this encounter
--- OUTSIDE RECORDS SUMMARY | 2024-03-30 21:47 | XMS_ITS | Encounter Summary ---
Author Organization [facility] Address [address] [place] [address] Care Team Providers Care Tinsmith Apprentice Name Role Phone Trell Pittman MD Primary Care Provider [phone] [phone] Reason for Visit * Reason Onset Date Comments Appointment Related 12/17/2021 Encounter Details Date Type Department Care Team (Late st Contact Info) Description 12/17/2021 Telephone [facility] Pediatric Pulmonary - [facility] [address] [place] [address] Lucy Rodgers MD [address] [place] [address] Appointment Related Social History Tobacco [...] encounter Miscellaneous Notes * Telephone Encounter - Shaina Baron - 01/05/2022 1012 EDT Left message for mom to try and schedule daughter for a fua with Dr. Rodgers. Asked mom to call me back. * Telephone Encounter - Soraya Guillory - 12/17/2021 1448 EDT LM for mom to call and schedule a fur w/dr rodgers and waiting for her to call back documented in this encounter Plan of Treatment Upcoming Encounters Date Type Department Care Team (Late st Contact Info) Description 04/24/2024 15:30 EST Telemedicine [facility] Pediatric Pulmonary - [address] [id number] Lucy Rodgers MD [address] [place] [phone] documented as of this encounter Visit Diagnoses Not on filedocumented in this encounter Care Teams Tinsmith Apprentice Relationship Specialty Start Date End Date Trell Pittman MD [address] [place] [address] PCP - General 04/10/09 documented as of this encounter
--- OUTSIDE RECORDS SUMMARY | 2024-03-30 21:47 | XMS_ITS | Encounter Summary ---
Author Organization [facility] Address [address] [place] [address] Care Team Providers Care Translator Interpreter Name Role Phone Trell Pittman MD Primary Care Provider [phone] [phone] Reason for Visit * Reason Onset Date Comments Follow-up 05/24/2023 Encounter Details Date Type Department Care Team (Late st Contact Info) Description 05/24/2023 Telephone [facility] Pediatric Pulmonary - [facility] [address] [place] [address] James Franklin MD [address] [place] [address] Follow-up Social History Tobacco Use Types Packs/Day Years [...] Date Author Yes 02/13/2010 0:00 EDT Mohit Yuusf RN documented in this encounter Miscellaneous Notes * Telephone Encounter - Felipe Worleyen - 05/24/2023 1213 EST Spoke to Jordyn-they need recent OV notes. Let her know we haven't seen her since last August and wehave been trying to get her in for a visit. Spoke to mom, who brought up the fact they need a visit. Transferred to scheduling. * Telephone Encounter - Ebony Abbott - 05/24/2023 1052 EST Jordyn is wondering if you received the medicaid form and a recommendation for medication along with recent notes for this patient. Per braden they have sent this three times thanks The fax number [phone] documented in this encounter Plan of Treatment Upcoming Encounters Date Type Department Care Team (Late st Contact Info) Description 04/24/2024 15:30 EST Telemedicine [facility] Pediatric Pulmonary - [facility] [address] [place], [place] [phone] Lucy Rodgers MD [address] [place] [phone] documented as of this encounter Visit Diagnoses Not on filedocumented in this encounter Care Teams Translator Interpreter Relationship Specialty Start Date End Date Trell Pittman MD [address] [place] [address] [place] [address] PCP - General 04/10/09 documented as of this encounter
--- OUTSIDE RECORDS SUMMARY | 2024-03-30 21:47 | XMS_ITS | Encounter Summary ---
Author Organization [facility] Address [address] [place] [address] Care Team Providers Care Bow String Maker Name Role Phone Trell Pittman MD Primary Care Provider +1 [phone] Reason for Referral * Test (Routine/Next Available) - Authorization Not Required Specialty Diagnoses / Procedures Referred By [facility] latha Referred To Contact Diagnoses Uncomplicated asthma, unspecified asthma severity, unspecified whether persistent Procedures PULMONARY FUNCTION TESTING Lucy Rodgers MD Phone: tel: fax: Referral ID Status Reason Start Date Expiration Date Visits Requested Visits Authorized [id number] Authorization Not Required 05/24/2023 3 3 Reason for Visit * Reason Onset Date Comments Orders (Non Pre-visit) 05/24/2023 Encounter Details Date Type Department Care Team (Late st Contact Info) Description 05/24/2023 Orders Only [facility] Pediatric Pulmonary - [place] [address] [place] [address] Brittany Byrd, RAÚL [address] [place] [address] Uncomplicated asthma, unspecified asthma severity, unspecified whether [...] documented in this encounter Progress Notes * Brittany Byrd RN - 05/24/2023 1219 EST Pft orders placed documented in this encounter Plan of Treatment Upcoming Encounters Date Type Department Care Team (Late st Contact Info) Description 04/24/2024 15:30 EST Telemedicine [facility] Pediatric Pulmonary - [facility] [address] [place], [place] [address] Lucy Rodgers MD [address] [place] [phone] Scheduled Orders Name Type Priority Associated Diagnoses Orde r Schedule PULMONARY FUNCTION TESTING PFT Routine Uncomplicated asthma, unspecified asthma severity, unspecified whether persistent 3 Occurrences starting 05/24/2023 until 11/21/2024, 1 completed documented as of this encounter Results * PULMONARY FUNCTION TESTING (09/15/2023 11:58 EDT) 09/15/2023 11:5 8 EDT us Lucy Rodgers MD PFT ORDERABLES Final Result [facility] PFT documented in this encounter Visit Diagnoses Diagnosis Uncomplicated asthma, unspecified asthma severity, unspecified whether persistent- Primary documented in this encounter Care Teams Bow String Maker Relationship Specialty Start Date End Date Trell Pittman MD [address] [place] [address] [place] [address] PCP - General 04/10/09 documented as of this encounter
--- OUTSIDE RECORDS SUMMARY | 2024-03-30 21:47 | XMS_ITS | Encounter Summary ---
Author Organization [facility] Address [address] [place] [address] Care Team Providers Care Internal Medicine Hospitalist Name Role Phone Trell Pittman MD Primary Care Provider [phone] [phone] Encounter Details Date Type Department Care Team (Late st Contact Info) Description 02/11/2023 Lab Requisition [facility] Pathology & Laboratory Medicine - [facility] [address] [place] [address] Panchito Blakely MD [address] [place] [address] [place] [address] Unspecified acute appendicitis Social History Tobacco Use Types Packs/Day Years [...] Contact Info) Description 04/24/2024 15:30 EST Telemedicine [facility] Pediatric Pulmonary - [facility] [address] [place], [place] [phone] Lucy Rodgers MD [address] [place] [address] documented as of this encounter Procedures Procedure Name Priority Date/Time Associated Diagnosis Comments SURGICAL PATHOLOGY Today 02/10/2023 12 :58 EDT documented in this encounter Results * SURGICAL PATHOLOGY (02/10/2023 12:58 EDT) Note to Patient The following pathology results have been interpreted by your pathologist and may be available to you before your health provider has had the opportunity to review them. Please allow time for your provider to receive these results and explore management options, if applicable. 02/12/2023 13:00 [facility] Final Diagnosis A. APPENDIX, APPENDECTOMY: - Acute appendicitis. 02/12/2023 13:00 [facility] Attestation By the signature below, the attending physician certifies that they have 1) personally conducted a gross and/or microscopic examination of the described specimen(s), and/or personally interpreted the results of laboratory testing of the described specimen(s), and 2) personally rendered or confirmed the above diagnosis. 02/12/2023 13:00 [facility] at 1300 Clinical History Appendicitis 02/12/2023 13:00 [facility] Gross Description A. Received in formalin labelled with proper patient identification (initials L, D) and appendix is an appendix (5.1 cm in length x 1.1 cm in diameter), with minimal attached mesoappendix. The proximal margin is stapled. The serosa is juan-sahni and congested. The cut surface is juan-white. The average wall thickness is 0.2 cm. A perforation site is not identified. The lumen ranges from 0.1 cm to 0.2 cm in diameter. A fecalith is not identified. The proximal margin is inked. The section adjacent to the stapled proximal margin, 2 retention representative cross sections and one half of the longitudinally bisected distal tip are submitted in A1. KRISTEN SAMANO(ASCP) 02/11/2023 9:14 02/12/2023 13:00 EDT [facility] Performing Lab [facility] 02/12/2023 13:00 EDT [facility] Scanned Images 02/12/2023 13:00 EDT [facility] Tissue APPENDIX STRUCTURE / Unknown 02/10/2023 12:58 EDT 02/11/2023 8:15 EDT us Panchito Blakely MD PATHOLOGY ORDERABLES Fin al Result [facility] [address] [place] [address] documented in this encounter Visit Diagnoses Diagnosis Unspecified acute appendicitis documented in this encounter Care Teams Internal Medicine Hospitalist Relationship Specialty Start Date End Date Trell Pittman MD [address] [place] [address] PCP - General 04/10/09 documented as of this encounter
--- OUTSIDE RECORDS SUMMARY | 2024-03-30 21:47 | XMS_ITS | Encounter Summary ---
Author Organization [facility] Address [address] [place] [address] Care Team Providers Care Traffic Lieutenant Name Role Phone Trell Pittman MD Primary Care Provider [phone] [phone] Reason for Visit * Reason Onset Date Comments Medications Refill 03/17/2024 Encounter Details Date Type Department Care Team (Late st Contact Info) Description 03/17/2024 Telephone [facility] Pediatric Pulmonary - [facility] [address] [place] [address] Lucy Rodgers MD [address] [place] [address] Medications Refill Social History Tobacco [...] Date Author Yes 02/13/2010 0:00 EDT Mohit Yusuf, RAÚL documented in this encounter Ordered Prescriptions Prescription Sig Dispense Quantity Refills Last Filled Start Date End Date montelukast (SINGULAIR) 10 mg tablet Take 1 Tablet by mouth at bedtime. 90 Tablet 2 03/17/2024 documented in this encounter Miscellaneous Notes * Telephone Encounter - Vaishali García RN - 03/17/2024 1227 EDT Med refilled. * Telephone Encounter - Mary Hansen - 03/17/2024 1201 EDT Rosario calling in to request a medication refill on Montelukast. She asked if this could be sent to [facility] in [place]. While on the phone I got an updated number and added it to chart ([phone]) that's her mobile number. I let her know we have tried to contact her about missed televideo. We were finally able to reschedule it, documented in this encounter Plan of Treatment Upcoming Encounters Date Type Department Care Team (Late st Contact Info) Description 04/24/2024 15:30 EST Telemedicine [facility] Pediatric Pulmonary - [facility] [address] [place], [place] [address] Lucy Rodgers MD [address] [place] [address] documented as of this encounter Visit Diagnoses Not on filedocumented in this encounter Discontinued Medications Medication Sig Discontinue Reason Start Date End Da te montelukast (SINGULAIR) 10 mg tablet Take 1 Tablet by mouth at bedtime. Reorder 09/15/2023 03/17/2024 documented as of this encounter Care Teams Traffic Lieutenant Relationship Specialty Start Date End Date Trell Pittman MD [address] [place] [address] [address] [facility] [place] [address] PCP - General 04/10/09 documented as of this encounter
--- OUTSIDE RECORDS SUMMARY | 2024-03-30 21:47 | XMS_ITS | Encounter Summary ---
Author Organization [facility] Address [address] [place] [address] Care Team Providers Care Forest Officer Name Role Phone Trell Pittman MD Primary Care Provider [phone] [phone] Reason for Visit * Reason Onset Date Comments Other 07/27/2022 Encounter Details Date Type Department Care Team (Late st Contact Info) Description 07/27/2022 Telephone [facility] Pediatric Pulmonary - [facility] [address] [place] [address] Lucy Rodgers MD [address] [place] [address] Other Social History Tobacco Use [...] Telephone Encounter - Dischino, Brittany, RN - 07/27/2022 1019 EDT Called mom back, she only needs to call [employer] service and they can ship the next size upout. No need for order as it's a lifetime warranty for vest sizing * Telephone Encounter - Soraya Guillory - 07/27/2022 0956 EDT Mom is calling and pt needs a bigger vest Please call mom back documented in this encounter Plan of Treatment Upcoming Encounters Date Type Department Care Team (Late st Contact Info) Description 04/24/2024 15:30 EST Telemedicine [facility] Pediatric Pulmonary - [facility] [address] [place], [place] [address] Lucy Rodgers MD [address] [place] [phone] documented as of this encounter Visit Diagnoses Not on filedocumented in this encounter Care Teams Forest Officer Relationship Specialty Start Date End Date Trell Pittman MD [address] [place] [address] PCP - General 04/10/09 documented as of this encounter
--- OUTSIDE RECORDS SUMMARY | 2024-03-30 21:47 | XMS_ITS | Encounter Summary ---
Author Organization [facility] Address [address] [place] [address] Care Team Providers Care Prototype Deicer Assembler Name Role Phone Trell Pittman MD Primary Care Provider +1 -[phone] Reason for Visit * Reason Onset Date Comments COVID-19 04/21/2021 Encounter Details Date Type Department Care Team (Late st Contact Info) Description 04/21/2021 Telephone [facility] [address] [place] [address] James Franklin MD [address] [place] [address] COVID-19 Social History Tobacco Use Types Packs/Day Years [...] encounter Miscellaneous Notes * Telephone Encounter - Kia Staton - 04/21/2021 2498 EST Call to MomLucy to schedule Rosario for pre-visit covid testing. Mom states she has already spoke to Dr. Franklin's office but reiterated to me the following: Rosario has tested positive for Covid and will be finished with her quarantine prior to the pulmonology appointment. Pt will not need further covid testing for approx 90 after positive test. Mother is planning to keep 04/28/[address] Franklin. . documented in this encounter Plan of Treatment Upcoming Encounters Date Type Department Care Team (Late st Contact Info) Description 04/24/2024 15:30 EST Telemedicine [facility] Pediatric Pulmonary - [address] [id number] Lucy Rodgers MD [address] [place] [phone] documented as of this encounter Visit Diagnoses Not on filedocumented in this encounter Care Teams Prototype Deicer Assembler Relationship Specialty Start Date End Date Trell Pittman MD [address] [place] [address] PCP - General 04/10/09 documented as of this encounter
--- OUTSIDE RECORDS SUMMARY | 2024-03-30 21:47 | XMS_ITS | Encounter Summary ---
Author Organization [facility] Address [address] [place] [address] Care Team Providers Care Health Communications Specialist Name Role Phone Trell Pittman MD Primary Care Provider [phone] [phone] Reason for Visit * Reason Onset Date Comments Other 08/10/2022 Encounter Details Date Type Department Care Team (Late st Contact Info) Description 08/10/2022 Telephone [facility] Pediatric Pulmonary - [facility] [address] [place] [address] Victor Manuel Rodgers MD [address] [place] [address] Other Social History Tobacco Use [...] Telephone Encounter - Dischino, Brittany, RN - 08/10/2022 1039 EDT Called Luis, he was thinking that he would order them an afflovest for Rosario. I explained that Dr Rodgers thought a Vega [place]aja would be better suited. In our practice we have found afflovest not to deliver the same pressures/force of ATC than the vest or monarch. I have left messages for mom (victor manuel) tocall me back so I can get the measurements required for the [place]. Luis said if he gets a call from mom he will steer her our way. * Telephone Encounter - Megan Hooks - 08/10/2022 1028 EDT LUIS called from [facility] emergency department and wants to know about changing the monarch vest from Marco to adult please call Luis documented in this encounter Plan of Treatment Upcoming Encounters Date Type Department Care Team (Late st Contact Info) Description 04/24/2024 15:30 EST Telemedicine [facility] Pediatric Pulmonary - [address] [phone] Victor Manuel Rodgers MD [address] [place] [phone] documented as of this encounter Visit Diagnoses Not on filedocumented in this encounter Care Teams Health Communications Specialist Relationship Specialty Start Date End Date Trell Pittman MD [address] [place] [address] PCP - General 04/10/09 documented as of this encounter
--- OUTSIDE RECORDS SUMMARY | 2024-03-30 21:47 | XMS_ITS | Encounter Summary ---
Author Organization [facility] Address [address] [place] [address] Care Team Providers Care Fastener Technologist Name Role Phone Trell Pittman MD Primary Care Provider [phone] [phone] Reason for Visit * Reason Onset Date Comments Appointment Related 12/13/2023 Televideo pr escreening Encounter Details Date Type Department Care Team (Late st Contact Info) Description 12/13/2023 Telephone [facility] Pediatric Pulmonary - [facility] [address] [place] [address] Lucy Rodgers MD [address] [place] [address] Appointment Related (Televideo prescreening) Social History Tobacco Use Types Packs/Day Years [...] Entry Date Author Yes 02/13/2010 0:00 EDT Mhoit Yusuf RN documented in this encounter Miscellaneous Notes * Telephone Encounter - Anita Lester MA - 12/13/2023 1438 EDT Called to prescreen patient for televideo, left message documented in this encounter Plan of Treatment Upcoming Encounters Date Type Department Care Team (Late st Contact Info) Description 04/24/2024 15:30 EST Telemedicine [facility] Pediatric Pulmonary - [address] [id number] Lucy Rodgers MD [address] [place] [phone] documented as of this encounter Visit Diagnoses Not on filedocumented in this encounter Care Teams Fastener Technologist Relationship Specialty Start Date End Date Trell Pittman MD [address] [place] [address] PCP - General 04/10/09 documented as of this encounter
--- OUTSIDE RECORDS SUMMARY | 2024-03-30 21:47 | XMS_ITS | Encounter Summary ---
Author Organization [facility] Address [address] [place] [address] Care Team Providers Care University Internship Name Role Phone Trell Pittman MD Primary Care Provider [phone] Encounter Details Date Type Department Care Team (Late st Contact Info) Description 01/24/2022 Lab Requisition [facility] Pathology & Laboratory Medicine - [address] [id number] Outr Resulting Lab, Provider Social History Tobacco Use Types Packs/Day Years [...] Contact Info) Description 04/24/2024 15:30 EST Telemedicine [facility] Pediatric Pulmonary - [address] [address] Lucy Rodgers MD [address] [place] [address] documented as of this encounter Procedures Procedure Name Priority Date/Time Associated Diagnosis Comments ZZCOVID-19 TEST [facility] PCR Today 01/24/2022 14:40 EDT COVID-19 TESTING Routine 01/24/2022 14:4 0 EDT documented in this encounter Results * COVID-19 TEST [facility] PCR (01/24/2022 14:40 EDT) Swab 01/24/2022 14:4 0 EDT 01/25/2022 17:30 EDT us Provider Outr Resulting Lab MICROBIOLOGY - GENER AL ORDERABLES Final Result [facility] [address] [place] [address] * COVID-19 TESTING (01/24/2022 14:40 EDT) COVID-19 rt-PCR Result Negative Negative 01/26/2022 13:20 EDT [facility] Comment: This test has not been FDA cleared or approved. This test has been authorized by FDA under an EUA for use by authorized laboratories. This test has been authorized only for detection of nucleic acid from 2019-nCoV, not for any other viruses or pathogens. This test is only authorized for the duration of the declaration that circumstances exist justifying the authorization of emergency use of in vitro diagnostic tests for detection and/or diagnosis of 2019-nCoV under section 564(b)(1) of Act, 21 U.S.C ?? 360bbb-3(b) (1), unless the authorization is terminated or revoked sooner. Negative results do not preclude 2019-nCoV infection and should not be used as the sole basis for treatment or other patient management decisions. Negative results must be combined with clinical observations, patient history, and epidemiological information. Testing was performed using the josse SARS-CoV-2 assay ([employer] on the Josse 6800 System Performing Lab Josse 6800 [facility] 01/26/2022 13:20 EDT [facility] Swab 01/24/2022 14:4 0 EDT 01/25/2022 17:30 EDT us Provider Outr Resulting Lab MICROBIOLOGY - GENER AL ORDERABLES Final Result [facility] [address] [place] [address] documented in this encounter Visit Diagnoses Not on filedocumented in this encounter Care Teams University Internship Relationship Specialty Start Date End Date Trell Pittman MD [address] [place] [address] [place] [address] PCP - General 04/10/09 documented as of this encounter
--- OUTSIDE RECORDS SUMMARY | 2024-03-30 21:47 | XMS_ITS | Encounter Summary ---
Author Organization [facility] Address [address] [place] [address] Care Team Providers Care Preventive Medicine Physician Name Role Phone Trell Pittman MD Primary Care Provider [phone] [phone] Reason for Visit * Reason Onset Date Comments Appointment Related 01/11/2024 Encounter Details Date Type Department Care Team (Late st Contact Info) Description 01/11/2024 Telephone [facility] Pediatric Pulmonary - [facility] [address] [place] [address] Lucy Rodgers MD [address] [place] [address] Appointment Related Social History Tobacco [...] encounter Miscellaneous Notes * Telephone Encounter - Mary Hansen - 01/11/2024 0824 EDT Called and left vm for primary number on file asking for a call back from [facility] to update number on file. I want to make sure we have her number in order to give her the appointment reminder. I also mentioned we need to reschedule missed televideo appt. documented in this encounter Plan of Treatment Upcoming Encounters Date Type Department Care Team (Late st Contact Info) Description 04/24/2024 15:30 EST Telemedicine [facility] Pediatric Pulmonary [address] [phone] Lucy Rodgers MD [address] [place] [phone] documented as of this encounter Visit Diagnoses Not on filedocumented in this encounter Care Teams Preventive Medicine Physician Relationship Specialty Start Date End Date Trell Pittman MD [address] [place] [address] PCP - General 04/10/09 documented as of this encounter
--- OUTSIDE RECORDS SUMMARY | 2024-03-30 21:47 | XMS_ITS | Encounter Summary ---
Author Organization [facility] Address [address] [place] [address] Care Team Providers Care Aws Software Development Engineer Name Role Phone Trell Pittman MD Primary Care Provider [phone] Reason for Visit * Reason Onset Date Comments Appointment Related 08/26/2023 Encounter Details Date Type Department Care Team (Late st Contact Info) Description 08/26/2023 Telephone [facility] Pediatric Pulmonary - [facility] [address] [place] [address] Lucy Rodgers MD [address] [place] [address] Appointment Related Social History Tobacco [...] * Telephone Encounter - Mary Hansen - 08/27/2023 0854 EDT Spoke to mom and was able to add them in for September 14Wed for pft and follow up. Told her this wouldbe the last accomodation we would make. Looking at pt chart they have cancelled most follow ups andhave been given multiple accommodations. I made it clear to mom if they do not make it or call to cancel they will need to wait for next available. * Telephone Encounter - Jenny Camacho - 08/26/2023 1249 EDT Marcie calling from [facility] to see if follow up has been set up for Rosario,it looks like Mom was trying to do that and somewhere the message got lost, told them we will connect with family and set that up, they also requested someone call them back to let them know when andif we were able to get that scheduled documented in this encounter Plan of Treatment Upcoming Encounters Date Type Department Care Team (Late st Contact Info) Description 04/24/2024 15:30 EST Telemedicine [facility] Pediatric Pulmonary - [address] [phone] Lucy Rodgers MD [address] [place] [phone] documented as of this encounter Visit Diagnoses Not on filedocumented in this encounter Care Teams Aws Software Development Engineer Relationship Specialty Start Date End Date Trell Pittman [place] [address] PCP - General 04/10/09 documented as of this encounter
--- OUTSIDE RECORDS SUMMARY | 2024-03-30 21:47 | XMS_ITS | Encounter Summary ---
Author Organization 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 Follow-up HISTORY OF PRESENT ILLNESS: Rosario Ace is a 16 y.o. year old female who comes in today for recurrent otitis media chronic serous otitis media and chronic rhinitis. She has been pretty healthy since her last visit here family has no hearing concerns. School is been going well. She is in good health otherwise. EXAM: Alert cooperative 16-year-old well-nourished in no distress Voice is normal today Head and face inspection and palpation are both normal salivary glands are normal today facial strength is normal today external ear and nose all normal today Eyes are normal today Otoscopy both ear canals are normal there is some bilateral tympanosclerosis Nose midline septum normal turbinates without discharge today Lips teeth and gums all normal for her age Oral cavity oropharynx are normal today Palpation the neck reveals no adenopathy or masses ASSESMENT/PLAN: Encounter Diagnoses Name Primary? Bilateral chronic serous otitis media Yes ??? 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
--- OUTSIDE RECORDS SUMMARY | 2024-03-30 21:47 | XMS_ITS | Encounter Summary ---
Author Organization [facility] Address [address] [place] [address] Care Team Providers Care Pocket Operator Name Role Phone Trell Pittman MD Primary Care Provider [phone] Reason for Visit * Reason Onset Date Comments Appointment Related 12/03/2022 Encounter Details Date Type Department Care Team (Late st Contact Info) Description 12/03/2022 Telephone [facility] Pediatric Pulmonary - [facility] [address] [place] [address] Lucy Rodgers MD [address] [place] [address] Appointment Related Social History Tobacco [...] encounter Miscellaneous Notes * Telephone Encounter - Soraya Guillory - 12/03/2022 1134 EDT Left message for mom to call as there was a schedule change and asked mom to call back to reschedule the siblings appt pft and fur w/dr rodgers and waiting for a call back documented in this encounter Plan of Treatment Upcoming Encounters Date Type Department Care Team (Late st Contact Info) Description 04/24/2024 15:30 EST Telemedicine [facility] Pediatric Pulmonary - Main [address] [phone] Lucy Rodgers MD [address] [place] [phone] documented as of this encounter Visit Diagnoses Not on filedocumented in this encounter Care Teams Pocket Operator Relationship Specialty Start Date End Date Trell Pittman MD [address] [place] [address] PCP - General 04/10/09 documented as of this encounter
--- OUTSIDE RECORDS SUMMARY | 2024-03-30 21:47 | XMS_ITS | Encounter Summary ---
Author Organization [facility] Address [address] [place] [address] Care Team Providers Care Parachute Cushion Installer Name Role Phone Trell Pittman MD Primary Care Provider [phone] [phone] Reason for Referral * Test (Routine/Next Available) - Authorization Not Required Specialty Diagnoses / Procedures [facility] Referred To Contact Diagnoses Moderate persistent asthma with (acute) exacerbation Procedures PULMONARY FUNCTION TESTING Lucy Rodgers MD Phone: tel: fax: Referral ID Status Reason Start Date Expiration Date Visits Requested Visits Authorized [id number] Authorization Not Required 08/03/2022 1 1 Reason for Visit * Reason Comments Asthma Encounter Details Date Type Department Care Team (Late st Contact Info) Description 08/03/2022 13:00 EDT Office Visit [facility] Pediatric Pulmonary - Main [address] [phone] Lucy Rodgers MD [address] [place] [phone] Moderate persistent asthma with (acute) exacerbation (Primary Dx) Social History Tobacco Use Types [...] Sign Reading Time Taken Comments Blood Pressure 114/71 08/03/2022 1304 EDT Pulse 61 08/03/2022 1304 EDT Temperature 35.9 ??C (96.6 ??F) 08/03/2022 1304 EDT Respiratory Rate - - Oxygen Saturation 100% 08/03/2022 1304 EDT Inhaled Oxygen Concentration - - Weight 55.7 kg (122 lb 12.7 oz) 08/03/2022 1304 EDT Height 173 cm (5' 8.11) 08/03/2022 1304 EDT Body Mass Index 18.61 08/03/2022 1304 EDT Body Mass Index Percentile 15.86% 08/03/2022 130 4 EDT Growth Chart: [facility] (Girls, 2- 20 Years) documented in this encounter Mental Status * Because of a physical, mental, or emotional condition, do you have serious difficulty concentrating, remembering, or making decisions? (5 years old or older) Answer Entry Date Author Yes 02/13/2010 0:00 EDT Mohit Yusuf RN documented in this encounter Patient Instructions * Patient Instructions* Lucy Rodgers MD - 08/03/2022 13:00 EDT Sinus rinses twice daily Can try saline nasal gel (nasogel or ayr gel or similar) Augmentin for 2 weeks, may need to extend Prednisone 60 mg daily for 5 days Albuterol 4 puffs or neb every 4 hours Symbicort 2 puffs twice a day Lansoprazole 30 mg daily Phone followup in 2 weeks Clinic visit September or early October Manual chest PT for now and will look further into vest ordering Sam Osman documented in this encounter Ordered Prescriptions Prescription Sig Dispense Quantity Refills Last Filled Start Date End Date amoxicillin-clavul anate (AUGMENTIN) 875-125 mg per tablet Take 1 Tablet by mouth 2 times daily for 14 days. 28 Tablet 08/03/2022 3 predniSONE (DELTASONE) 20 mg tablet Take 3 Tablets by mouth daily for 5 days. 30 Tablet 08/03/2022 3 lansoprazole (PREVACID) 30 mg capsule Take 1 Capsule by mouth daily. 90 Capsule 1 08/03/2022 4 documented in this encounter Progress Notes * Lucy Rodgers MD - 08/03/2022 1300 EDT Images from the original note were not included. Pediatric Pulmonology James Franklin M.D., Lucy Rodgers M.D, Jason Mohan M.D., JULES Tai M.D. [address] [address] Encounter Date: 08/03/2022 Trell Pittman [address] [place] [address] DR [facility] [id number] Chief Complaint: Rosario is a 16 y.o. female who is seen in pulmonary clinic for a sick visit for asthma exacerbation and ED followup. Rosario is accompanied by her mother who contributed to the history. Her sister also attended the visit. Subjective: Rosario has been symptomatic with cough, chest tightness, and wheeze. She finished a 5 day course of prednisone a few days ago, but symptoms persist. She was seen in the ED on her second day of prednisone, as she developed more difficulty breathing and typically the prednisone improves symptoms faster. Ultimately with frequent bronchodilators and further doses of prednisone she no longer had significant difficulty breathing. However, she remains uncomfortable with chest tightness and exertionalshortness of breath and is needing albuterol multiple times per day. She has not been able to resume school. She has felt plugging in her chest that is relieved by manual chest PT, but it is hard forher to receive enough treatments. She is in need of a vest, but her vest no longer fits and the company says they are unable to provide the next size up due to the age of her machine. She has developed severe sinus pressure. She is on Augmentin which she started at the time of her ED visit. She is experiencing worse reflux symptoms over the past months. Typical triggers: Infections / Colds, Environmental Allergies, Air Pollution, Dust Mites, Exercise,Cigarette Smoke Medication Use: Rescue/quick relief medicines: ?? Albuterol MDI. Rosario has needed to use this medication only with colds, only with exercise. Preventive/long-term control: ?? budesonide-formoterol (SYMBICORT HFA) 160mcg-4.5mcg ?? Montelukast Proper use of chamber / mask: yes Medication Compliance: fairly good adherence with Symbicort once daily leading into this illness, currently she is taking it twice daily Gastrointestinal/Nutrition: Appetite is good. Gastroesophageal reflux symptoms are frequent. Otolaryngology: Rosario has had chronic congestion and severe sinus congestion currently. General Health: Overall activity has been restricted due to difficulty breathing. Environmental History: There have been no changes [...] History: Procedure Laterality Date ??? ADENOIDECTOMY ??? CO BRNCHSC W/BRNCL ALVEOLAR LAVAGE 02/11/2010 ??? CO BRNCHSC W/BRNCL ALVEOLAR LAVAGE 02/04/2011 ??? CO CREATE EARDRUM OPENING,GEN ANESTH ??? PYLOROMYOTOMY 3 [...] Outpatient Medications Marked as Taking for the 08/03/22 encounter (Office Visit) with Lucy Rodgers MD Medication Sig Dispense Refill ??? amoxicillin-clavulanate (AUGMENTIN) 875-125 mg per tablet Take 1 Tablet by mouth 2 times daily for 14 days. 28 Tablet 0 ??? budesonide-formoterol HFA (SYMBICORT) 160-4.5 mcg/actuation HFA aerosol inhaler inhaler Inhale 2 Puffs as directed 2 times daily. 3 Each 1 ??? cetirizine (ZYRTEC) 10 mg tablet Take 1 Tablet by mouth daily. 90 Tablet 1 ??? inhalational spacing device (AEROCHAMBER) Inhale 1 Device as directed daily. Spacer for MDI 1 Each 2 ??? lansoprazole (PREVACID) 30 mg capsule Take 1 Capsule by mouth daily. 90 Capsule 1 ??? [DISCONTINUED] montelukast (SINGULAIR) 10 mg tablet Take 1 Tablet by mouth at bedtime. 90 Tablet 1 ??? predniSONE (DELTASONE) 20 mg tablet Take 3 Tablets by mouth daily for 5 days. 30 Tablet 0 ??? PROAIR HFA 90 mcg/actuation inhaler Inhale 2 Puffs as directed every 4 hours as needed for Wheezing (cough, short of breath). 3 Each 1 Allergies Allergen Reactions ??? Bee Venom Protein (Honey Bee) Anaphylaxis ??? Adhesive Tape Other (See Comments) blisters ??? Milk Nausea And Vomiting And itchy, rash, nasal congestion ??? Other - See Comments Dust mites Living Conditions ??? Lives with Mother primarily (sees father regularly) dad every other weekend and Tues and Wed ??? Other individuals living in the home brother; sister ??? Parents status Safety and Environmental Exposures ??? Pets Yes 2 cats at mom; 2 dogs at dad ??? Carpets Yes Social History was reviewed and updated in [employer]. Relevant elements of social history can be found in the environmental exposures portion of this note. Objective Data BP 114/71 (BP Cuff Location: Right arm, BP Patient Position: Sitting, BP Cuff Sizes: Adult, regular) Pulse 61 Temp 35.9 ??C (96.6 ??F) (Tympanic) Ht 173 cm (68.11) Wt 55.7 kg (122 lb 12.7 oz) SpO2 100% BMI 18.61 kg/m?? General Appearance: well appearing, alert, no acute distress, pleasant and cooperative Head: normocephalic, atraumatic Eye: no injection, no discharge Ear: canals with cerumen bilaterally Nose: edematous mucosa, erythema, mucoid secretions Mouth\Throat: moist mucosa, oropharynx without exudate, erythema or thrush Lymph Nodes: shotty cervical adenopathy Chest\Lungs: Air entry is fair bilaterally, diffuse expiratory wheezing is appreciated, crackles are not appreciated, no retractions, expiratory phase is mildly prolonged, cough is absent Abdomen: abdomen is soft, nontender, and nondistended without hepatosplenomegaly or masses and normoactive bowel sounds are present Heart: S1/S2 RRR and no murmur Skin: Warm and dry, Cyanosis is absent MSK:Clubbing is absent Assessment and Plan Rosario is a 16 y.o. female with Moderate Persistent and impaired airway clearance due to ciliary dyskinesia who is symptomatic with asthma exacerbation. Recommend a second course of prednisone x 5 days and scheduled bronchodilator. She has sinusitis and is receiving antibiotics. She should resume sinus rinses. Recommend PPI due to worsening reflux symptoms. Spirometry (FEV1) is normal without bronchodilator response. [...] or daily plus acapella when sick ?? Will check on vest status with [employer] and consider ordering Bristow vest ?? Continue Augmentin x 14 day course ?? Prednisone 60 mg daily x 5 days ?? Sinus rinses ?? Followup in 2 weeks, sooner if needed Education / Self Management Goals: Symptomatic treatments reviewed. Patient's condition, differential diagnosis, and Treatment Plan reviewed. Teaching provided for the listed diagnoses and/or medications. Spacer use discussed. Follow up if symptoms persist, increase, or as instructed. Please feel free to contact us with questions or comments regarding Rosario's care. Sincerely, Lucy Rodgers MD documented in this encounter Plan of Treatment Upcoming Encounters Date Type Department Care Team (Late st Contact Info) Description 04/24/2024 15:30 EST Telemedicine [facility] Pediatric Pulmonary - [address] [id number] Lucy Rodgers MD [address] [place] [phone] Scheduled Orders Name Type Priority Associated Diagnoses Orde r Schedule PULMONARY FUNCTION TESTING PFT Routine Moderate persistent asthma with (acute) exacerbation 1 Occurrences starting 08/03/2022 until 02/04/2024 documented as of this encounter Visit Diagnoses Diagnosis Moderate persistent asthma with (acute) exacerbation- Primary documented in this encounter Care Teams Parachute Cushion Installer Relationship Specialty Start Date End Date Trell Pittman MD [address] [place] [address] PCP - General 04/10/09 documented as of this encounter
--- OUTSIDE RECORDS SUMMARY | 2024-03-30 21:47 | XMS_ITS | Encounter Summary ---
Author Organization [facility] Address [address] [place] [address] Care Team Providers Care Supervisor Specialty Plant Name Role Phone Trell Pittman MD Primary Care Provider [phone] [phone] Reason for Referral * Consult (Routine/Next Available) - Closed Specialty Diagnoses / Procedures Referred By Paula azul Referred To Contact Diagnoses Primary ciliary dyskinesia Lucy Rodgers MD [address] [place] [phone] Phone: tel: fax: [facility] Pediatric Genetics [address] [address] Phone: tel: fax: Referral ID Status Reason Start Date Expiration Date V isits Requested Visits Authorized [id number] Closed Specialty Services Required 09/25/2023 1 1 Question Answer Reason for Request: Clinical diagnois of primary ciliary dyskinesia, interested in genetic testing for this condition; request genetic counselor appt Comments Request genetic counseling appt Reason for Visit * Reason Comments Asthma Encounter Details Date Type Department Care Team ([facility] st Contact Info) Description 09/15/2023 12:30 EDT Office Visit [facility] Pediatric Pulmonary [address] [address] Lucy Rodgers MD [address] [place] [phone] Primary ciliary dyskinesia (Primary Dx); Uncomplicated asthma, unspecified asthma severity, unspecified whether persistent; Moderate persistent asthma without complication Social History Tobacco Use Types Packs/Day Years [...] EDT Pulse 86 09/15/2023 1203 EDT Temperature - - Respiratory Rate 24 09/15/2023 1203 EDT Oxygen Saturation 99% 09/15/2023 1203 EDT Inhaled Oxygen Concentration - - Weight 59.8 kg (131 lb 13.4 oz) 09/15/2023 1203 EDT Height 172.7 cm (5' 7.99) 09/15/2023 1203 EDT Body Mass Index 20.05 09/15/2023 1203 EDT Body Mass Index Percentile 30.70% 09/15/2023 120 3 EDT Growth Chart: [facility] (Girls, 2- 20 Years) documented in this encounter Mental Status * Because of a physical, mental, or emotional condition, do you have serious difficulty concentrating, remembering, or making decisions? (5 years old or older) Answer Entry Date Author Yes 02/13/2010 0:00 EDT Mohit Yusuf RN documented in this encounter Patient Instructions * Patient Instructions* Lucy Rodgers MD - 09/15/2023 12:30 EDT Genetic counseling referral - goal for approval of genetic testing for ciliary dyskinesia (ask for telemedicine visit) After you have genetics appt and testing approved, let us know and we can add bloodwork for allergypanel and CBC/diff to the testing. Start Astelin nasal spray twice daily. Continue cetirizine and montelukast. If still having symptoms, try adding a nasal steroid (Omnaris/ciclesonide once daily prescribed but any alternative is ok, would like to try something other than Flonase/fluticasone) documented in this encounter Ordered Prescriptions Prescription Sig Dispense Quantity Refills Last Filled Start Date End Date lansoprazole (PREVACID) 30 mg capsule Take 1 Capsule by mouth daily. 90 Capsule 2 09/15/2023 cetirizine (ZYRTEC) 10 mg tablet Take 1 Tablet by mouth daily. 90 Tablet 2 09/15/2023 budesonide-formote rol HFA (SYMBICORT) 160-4.5 mcg/actuation HFA aerosol inhaler inhalerIndications :Moderate persistent asthma without complication Inhale 2 Puffs as directed 2 times daily. 3 Each 2 09/15/2023 azelastine (ASTELIN) nasal spray Instill 1-2 Sprays into both nostrils 2 times daily. 30 mL 2 09/15/2023 Ciclesonide 50 mcg spray,non-aerosol 100 mcg by nasal route daily. 12.5 g 5 09/15/2023 montelukast (SINGULAIR) 10 mg tablet Take 1 Tablet by mouth at bedtime. 90 Tablet 2 09/15/2023 4 documented in this encounter Progress Notes * Lucy Rodgers MD - 09/15/2023 1230 EDT Images from the original note were not included. Pediatric Pulmonology James Franklin M.D., Lucy Rodgers M.D, Jason Mohan M.D., JULES Tai M.D. [address] [phone] Encounter Date: 09/15/2023 Trell Pittman [address] [place] [address] [place] [address] Chief Complaint: Rosario is a 17 y.o. female who is seen in pulmonary clinic for asthma. Rosario is accompanied by her mother who contributed to the history. Subjective: Rosario has been stable from a respiratory standpoint. She has no chronic cough during the day, night, or with activity. She is active without exertional symptoms. She is adherent with maintenance asthma therapy and has been tolerating colds well. She is using her Marlin vest daily at baseline andtwice daily with colds and she feels this has markedly improved her respiratory health. She does still have frequent sinus symptoms and probable allergic symptoms. She had nosebleeds withFlonase in the past so is not taking this. She does take antihistamine with some relief. Typical triggers: Infections / Colds, Environmental Allergies, Air Pollution, Dust Mites, Exercise,Cigarette Smoke Classification of Asthma Control: Daytime symptoms: Less than or equal to 2 days/week Nighttime awakenings: None Interference with normal activity: Some limitation Short-acting Beta agonist use for symptom control: Less than or equal to 2 days/week Exacerbations requiring oral systemic corticosteroids: 0-1/year Medication Use: Rescue/quick relief medicines: Albuterol MDI. Rosario has needed to use this medication only with colds. Preventive/long-term control: budesonide-formoterol (SYMBICORT HFA) 160mcg-4.5mcg Montelukast Cetirizine Airway clearance Vest daily at baseline and BID with colds Proper use of chamber / mask: Yes Medication Compliance: adherent Gastrointestinal/Nutrition: Appetite is good. Gastroesophageal reflux symptoms are intermittent and she feels they are adequately controlled withlansoprazole as needed. She has had intermittent abdominal pain since appendectomy in January. Otolaryngology: Rosario has had sinus congestion and allergic symptoms. General Health: Overall behavior and activity has been normal. 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 Environmental History: There have been no changes to the home environment since the last visit. REVIEW OF SYSTEMS: A complete review of 10 systems was obtained and was negative except listed above. Past Medical History: Diagnosis Date Allergic conjunctivitis Allergic rhinitis dust mites and tree pollen Asthma Always rattley per mom Esophageal reflux Gastroesophageal reflux disease 02/12/2010 Normal EGD/colonoscopy 01/2011 Hearing loss OM (otitis media) Scoliosis Sleeping difficulty Stomach problems Unspecified sinusitis (chronic) Past Surgical History: Procedure Laterality Date ADENOIDECTOMY DC BRNCHSC W/BRNCL ALVEOLAR LAVAGE 02/11/2010 DC BRNCHSC W/BRNCL ALVEOLAR LAVAGE 02/04/2011 DC CREATE EARDRUM OPENING,GEN ANESTH PYLOROMYOTOMY 3 sets of PE tubes TYMPANOSTOMY TUBE PLACEMENT Past Medical and Surgical History was reviewed and updated in [facility]. Family History Problem Relation Age of Onset Allergies Mother environment, amoxicillin Food Intolerance Mother lactose intolerant Constipation Mother Diarrhea Mother Migraines Mother Allergies Father environment Food Intolerance Brother lactose Celiac Disease Other *Other(comment) Paternal Grandfather diverticulitis Diarrhea Maternal Grandmother High Cholesterol Maternal Grandmother Asthma Sister Outpatient Medications Marked as Taking for the 09/15/23 encounter (Office Visit) with Lucy Rodgers MD Medication Sig Dispense Refill azelastine (ASTELIN) nasal spray Instill 1-2 Sprays into both nostrils 2 times daily. 30 mL 2 [DISCONTINUED] budesonide-formoterol HFA (SYMBICORT) 160-4.5 mcg/actuation HFA aerosol inhaler inhaler Inhale 2 Puffs as directed 2 times daily. 3 Each 1 [DISCONTINUED] cetirizine (ZYRTEC) 10 mg tablet Take 1 Tablet by mouth daily. 90 Tablet 1 Ciclesonide 50 mcg spray,non-aerosol 100 mcg by nasal route daily. 12.5 g 5 fluticasone propionate (FLONASE) 50 mcg/actuation nasal spray Instill 1 [place] into both nostrils daily. 1 Bottle 5 inhalational spacing device (AEROCHAMBER) Inhale 1 Device as directed daily. Spacer for MDI 1 Each 2 [DISCONTINUED] lansoprazole (PREVACID) 30 mg capsule Take 1 Capsule by mouth daily. 90 Capsule 1 [DISCONTINUED] montelukast (SINGULAIR) 10 mg tablet Take 1 Tablet by mouth at bedtime. 90 Tablet 1 PROAIR HFA 90 mcg/actuation inhaler Inhale 2 Puffs as directed every 4 hours as needed for Wheezing(cough, short of breath). 3 Each 1 Allergies Allergen Reactions Bee Venom Protein (Honey Bee) Anaphylaxis Adhesive Tape Other (See Comments) blisters Milk Nausea And Vomiting And itchy, rash, nasal congestion Other - See Comments Dust mites Living Conditions Lives with Mother primarily (sees father regularly) dad every other weekend and Tues and Wed Other individuals living in the home brother; sister Parents status Weekdays Education Grade 7 Reported academic performance Excellent Safety and Environmental Exposures Pets Yes 2 cats at mom; 2 dogs at dad Carpets Yes Social History was reviewed and updated in [facility]ISM. Relevant elements of social history can be found in the environmental exposures portion of this note. Objective Data BP 126/70 (BP Cuff Location: Right arm, BP Patient Position: Sitting, BP Cuff Sizes: Adult, small) Pulse 86 Resp 24 Ht 172.7 cm (67.99) Wt 59.8 kg (131 lb 13.4 oz) SpO2 99% BMI 20.05 kg/m?? General Appearance: well appearing, alert, no acute distress, cooperative Head: normocephalic, atraumatic Eye: no injection, no discharge Ear: TM's clear bilaterally, canals clear bilaterally Nose: septum midline, edematous mucosa, clear secretions Mouth\Throat: moist mucosa, oropharynx without exudate, erythema or thrush Lymph Nodes: no cervical adenopathy Chest\Lungs: Air entry is good bilaterally, wheezing is not appreciated, crackles are not appreciated, no retractions, expiratory phase is within normal limits, cough is absent Abdomen: abdomen is soft, nontender, and nondistended Heart: S1/S2 RRR and no murmur Skin: Warm and dry, Cyanosis is absent MSK:Clubbing is absent Diagnostic Data PFT's PFTS (Before Albuterol Treatment) FVC (L): 4.27 liters FVC % Pred: 107 FEV1 (L): 3.84 liters FEV 1 % Pred: 108 FEF 25-75% (L/scc): 4.6 FEF 25-75% Pred: 112 PFTS (After Albuterol Treatment) FVC (L) (After Albuterol): 4.1 liters FVC % Pred (After Albuterol): 103 FEV1 (L) (After Albuterol): 3.82 liters FEV 1 % Pred (After Albuterol): 108 FEF 25-75% (L/scc) (After Albuterol): 4.69 FEF 25-75% Pred (After Albuterol): 114 Assessment and Plan Rosario is a 17 y.o. female with Moderate Persistent asthma who is stable. Her asthma has been wellcontrolled and will continue her current therapy. Spirometry is normal without bronchodilator response. She is experiencing sinus/allergic symptoms and we discussed stepping up allergy therapy and wecan pursue testing in the future. She had clinical diagnosis of primary ciliary dyskinesia and is interested in pursuing genetic testing and genetic counseling for this. She has benefit from using vest therapy regularly and is tolerating illnesses better. Reflux symptoms are managed with PPI. She has intermittent abdominal pain and will follow up with her proof coins inspector for this. I discussed the following treatment plan with Rosario and her mother. Maintenance (Green) Medications: budesonide-formoterol (SYMBICORT HFA) 160mcg-4.5mcg 2 inhalations twice daily Montelukast 10 mg daily Cetirizine 10 mg daily Start astelin nasal spray twice daily. If still having symptoms, add nasal steroid (ciclesonide prescribed since she did not tolerate Flonase but other alternatives could be tried if preferred) Lansoprazole 30 mg daily Sinus rinses daily and as needed Rescue (Yellow) Medications: albuterol 2-4 puffs every 4 hours as needed Emergency (Red) Medications: albuterol 4 puffs twice and call physician Daily vest, BID with illness Recommend discussing abdominal symptoms with her proof coins inspector Genetic counseling referral regarding testing for primary ciliary dyskinesia genetics (Blueprint vsas recommended by genetic counselor) Allergy panel, CBC/diff in the future Followup in the summer via televideo, sooner as needed Education / Self Management Goals: Symptomatic treatments reviewed. Patient's condition, differential diagnosis, and Treatment Plan reviewed. Teaching provided for the listed diagnoses and/or medications. Spacer use discussed. Triggers and risk factors discussed. Please feel free to contact us with questions or comments regarding Rosario's care. Sincerely, Lucy Rodgers MD documented in this encounter Plan of Treatment Upcoming Encounters Date Type Department Care Team (Late st Contact Info) Description 04/24/2024 15:30 EST Telemedicine [facility] Pediatric Pulmonary - Main [address] [id number] Lucy Rodgers MD [address] [place] [phone] Scheduled Referrals Name Type Priority Associated Diagnoses Order Schedule AMB CONS/FOLLOW UP GENETICS Outpatient Referral Routine/Next Available Primary ciliary dyskinesia Expected: 12/26/2023 (Approximate), Expires: 09/24/2024 documented as of this encounter Procedures Procedure Name Priority Date/Time Associated Diagnosis Comments PULMONARY FUNCTION TESTING Routine 09/15/2023 11:58 EDT Uncomplicated asthma, unspecified asthma severity, unspecified whether persistent documented in this encounter Results * PULMONARY FUNCTION TESTING (09/15/2023 11:58 EDT) 09/15/2023 11:5 8 EDT us Lucy Rodgers MD PFT ORDERABLES Final Result [facility] PFT documented in this encounter Visit Diagnoses Diagnosis Primary ciliary dyskinesia- Primary Situs inversus Uncomplicated asthma, unspecified asthma severity, unspecified whether persistent Moderate persistent asthma without complication Unspecified asthma documented in this encounter Discontinued Medications Medication Sig Discontinue Reason Start Date End Da te lansoprazole (PREVACID) 30 mg capsule Take 1 capsule by mouth daily. Alternate therapy 04/28/2021 09/15/2023 budesonide-formoterol HFA (SYMBICORT) 160-4.5 mcg/actuation HFA aerosol inhaler inhalerIndications:Moder ate persistent asthma without complication Inhale 2 Puffs as directed 2 times daily. Reorder 04/28/2021 09/15/2023 lansoprazole (PREVACID) 30 mg capsule Take 1 Capsule by mouth daily. Reorder 08/03/2022 09/15/2023 montelukast (SINGULAIR) 10 mg tablet Take 1 Tablet by mouth at bedtime. Reorder 08/04/2022 09/15/2023 cetirizine (ZYRTEC) 10 mg tablet Take 1 Tablet by mouth daily. Reorder 08/17/2022 09/15/2023 documented as of this encounter Historical Medications * This list may reflect changes made after this encounter. albuterol 2.5 mg /3 mL (0.083 %) nebulizer solution Take 3 mL by nebulization 2 times daily. 09/29/2022 added in this encounter Care Teams Supervisor Specialty Plant Relationship Specialty Start Date End Date Trell Pittman MD [address] [place] [address] PCP - General 04/10/09 documented as of this encounter
--- OUTSIDE RECORDS SUMMARY | 2024-03-30 21:47 | XMS_ITS | Encounter Summary ---
Author Organization [facility] Address [address] [place] [address] Care Team Providers Care Elevator Troubleshooter Name Role Phone Trell Pittman MD Primary Care Provider [phone] Reason for Visit * Reason Onset Date Comments Appointment Related 10/05/2022 Encounter Details Date Type Department Care Team (Late st Contact Info) Description 10/05/2022 Telephone [facility] Pediatric Pulmonary - [facility] [address] [place] [address] Lucy Rodgers MD [address] [place] [address] Appointment Related Social History Tobacco [...] * Telephone Encounter - Soraya Guillory - 10/05/2022 1645 EDT Left message for mom to call back as a no show appt from today and waiting for mom to call back documented in this encounter Plan of Treatment Upcoming Encounters Date Type Department Care Team (Late st Contact Info) Description 04/24/2024 15:30 EST Telemedicine [facility] Pediatric Pulmonary - [address] [id number] Lucy Rodgers MD [address] [place] [phone] documented as of this encounter Visit Diagnoses Not on filedocumented in this encounter Care Teams Elevator Troubleshooter Relationship Specialty Start Date End Date Trell Pittman [place] [address] PCP - General 04/10/09 documented as of this encounter
--- OUTSIDE RECORDS SUMMARY | 2024-03-30 21:47 | XMS_ITS | Encounter Summary ---
Author Organization [facility] Address [address] [place] [address] Care Team Providers Care Belt Glass Sander Name Role Phone Trell Pittman MD Primary Care Provider [phone] [phone] Reason for Visit * Reason Onset Date Comments Results 12/23/2021 Encounter Details Date Type Department Care Team (Late st Contact Info) Description 12/23/2021 Telephone [facility] Pediatric Pulmonary - [facility] [address] [place], [place] [address] Kaylah Almanzar RN Results Social History Tobacco Use Types Packs/Day Years [...] Telephone Encounter - Kaylah Almanzar RN - 12/23/2021 1621 EDT Received external PFT results from [facility]. Results reviewed by Dr. Rodgers. Results are normal, numbers are excellent. Pt due for a follow up - can be televideo. documented in this encounter Plan of Treatment Upcoming Encounters Date Type Department Care Team (Late st Contact Info) Description 04/24/2024 15:30 EST Telemedicine [facility] Pediatric Pulmonary - [facility] [address] [place], [place] [phone] Lucy Rodgers MD [address] [place] [phone] documented as of this encounter Visit Diagnoses Not on filedocumented in this encounter Care Teams Belt Glass Sander Relationship Specialty Start Date End Date Trell Pittman MD [address] [place] [address] PCP - General 04/10/09 documented as of this encounter
--- OUTSIDE RECORDS SUMMARY | 2024-03-30 21:47 | XMS_ITS | Encounter Summary ---
Author Organization [facility] Address [address] [place] [address] Care Team Providers Care Attending Radiologist Name Role Phone Trell Pittman MD Primary Care Provider [phone] Encounter Details Date Type Department Care Team (Late st Contact Info) Description 07/04/2021 Orders Only [facility] Pulmonary Function Lab - [facility] [address] [place], [place] [phone] Lucy Rodgers MD [address] [place] [address] Asthma, unspecified asthma severity, unspecified whether complicated, unspecified whether persistent (Primary Dx) Social History [...] Al icia, RN documented in this encounter Progress Notes * Whit Pressley MA - 07/04/2021 0900 EST COVID order placed for 07/07/21 PFT documented in this encounter Plan of Treatment Upcoming Encounters Date Type Department Care Team (Late st Contact Info) Description 04/24/2024 15:30 EST Telemedicine [facility] Pediatric Pulmonary - [facility] [address] [place] [address] Lucy Rodgers MD [address] [place] [phone] documented as of this encounter Visit Diagnoses Diagnosis Asthma, unspecified asthma severity, unspecified whether complicated, unspecified whether persistent- Primary documented in this encounter Care Teams Attending Radiologist Relationship Specialty Start Date End Date Trell Pittman MD [address] [place] [address] [place] [address] PCP - General 04/10/09 documented as of this encounter
--- OUTSIDE RECORDS SUMMARY | 2024-03-30 21:47 | XMS_ITS | Encounter Summary ---
Author Organization [facility] Address [address] [place] [address] Care Team Providers Care Flume Maker Name Role Phone Trell Pittman MD Primary Care Provider [phone] [phone] Reason for Visit * Reason Comments Asthma Encounter Details Date Type Department Care Team (Late st Contact Info) Description 07/28/2021 16:00 EDT Telemedicine [facility] Pediatric Pulmonary - Main [place] [address] [place] [address] Lucy Rodgers MD [address] [place] [address] Moderate persistent asthma without complication [...] documented in this encounter Progress Notes * Gonsalez, Lilly, MA - 07/28/2021 1600 EDT Asked for a call back to pre-screen for televideo today. * Lucy Rodgers MD - 07/28/2021 1600 EDT She did not attend the visit, office will reach out to reschedule. documented in this encounter Plan of Treatment Upcoming Encounters Date Type Department Care Team (Late st Contact Info) Description 04/24/2024 15:30 EST Telemedicine [facility] Pediatric Pulmonary - [address] [id number] Lucy Rodgers MD [address] [place] [phone] documented as of this encounter Visit Diagnoses Diagnosis Moderate persistent asthma without complication- Primary Unspecified asthma documented in this encounter Care Teams Flume Maker Relationship Specialty Start Date End Date Trell Pittman MD [address] [place] [address] PCP - General 04/10/09 documented as of this encounter
--- OUTSIDE RECORDS SUMMARY | 2024-03-30 21:47 | XMS_ITS | Encounter Summary ---
Author Organization [facility] Address [address] [place] [address] Care Team Providers Care Solutions Sales Consultant Name Role Phone Trell Pittman MD Primary Care Provider [phone] Reason for Visit * Reason Onset Date Comments COVID-19 07/04/2021 Encounter Details Date Type Department Care Team (Late st Contact Info) Description 07/04/2021 Telephone [facility] [address] [place] [address] Lucy Rodgers MD [address] [place] [address] COVID-19 Social History Tobacco Use [...] encounter Miscellaneous Notes * Telephone Encounter - Taylor Tidwell - 07/04/2021 0909 EST Called patient to schedule COVID-19 testing. Requested a call back @[phone]. This is our 1st attempt at contacting the patient. Covid scheduling has attempted to reach the patient 1x with no response, Patient needs to be tested today (2.18) documented in this encounter Plan of Treatment Upcoming Encounters Date Type Department Care Team (Late st Contact Info) Description 04/24/2024 15:30 EST Telemedicine [facility] Pediatric Pulmonary - [address] [address] Lucy Rodgers MD [address] [place] [phone] documented as of this encounter Visit Diagnoses Not on filedocumented in this encounter Care Teams Solutions Sales Consultant Relationship Specialty Start Date End Date Trell Pittman MD [address] [place] [address] PCP - General 04/10/09 documented as of this encounter
--- OUTSIDE RECORDS SUMMARY | 2024-03-30 21:48 | XMS_ITS | Encounter Summary ---
Author Organization [facility] Address [address] [place] [address] Care Team Providers Care Wheat And Oats Flake Miller Name Role Phone Trell Pittman MD Primary Care Provider [phone] Reason for Visit * Reason Onset Date Comments Medication Problem 09/06/2019 Encounter Details Date Type Department Care Team (Late st Contact Info) Description 09/06/2019 Telephone [facility] Pediatric Pulmonary - [facility] [address] [place] [address] Lucy Rodgers MD [address] [place] [address] Medication Problem Social History Tobacco Use Types Packs/Day Years Used Date Smoking Tobacco: Never Smokeless Tobacco: Never Comments:now living in apart ment since September; no longer living with a smoker Comments Unknown Sex and Gender Information Value [...] encounter Miscellaneous Notes * Telephone Encounter - Pj Lobato - 09/06/2019 1041 EDT Montelukast 10 mg tabs needs to be a 90 day supply please change script for the pharmacy so it willpay documented in this encounter Plan of Treatment Upcoming Encounters Date Type Department Care Team (Late st Contact Info) Description 04/24/2024 15:30 EST Telemedicine [facility] Pediatric Pulmonary - [address] [phone] Lucy Rodgers MD [address] [place] [phone] documented as of this encounter Visit Diagnoses Not on filedocumented in this encounter Care Teams Wheat And Oats Flake Miller Relationship Specialty Start Date End Date Trell Pittman MD [address] [place] [address] PCP - General 04/10/09 documented as of this encounter
--- OUTSIDE RECORDS SUMMARY | 2024-03-30 21:48 | XMS_ITS | Encounter Summary ---
Author Organization [facility] Address [address] [place] [address] Care Team Providers Care Forestry Biology Specialist Name Role Phone Trell Pittman MD Primary Care Provider +1 [phone] Reason for Visit * Reason Onset Date Comments Appointment Related 09/05/2018 Encounter Details Date Type Department Care Team (Late st Contact Info) Description 09/05/2018 Telephone [facility] Pediatric Pulmonary - [facility] [address] [place] [address] Lucy Rodgers MD [address] [place] [address] Appointment Related Social History Tobacco [...] encounter Miscellaneous Notes * Telephone Encounter - Alee Regan - 09/05/2018 1507 EDT Returned call to mom. Left VM to call back and schedule FUR. documented in this encounter Plan of Treatment Upcoming Encounters Date Type Department Care Team (Late st Contact Info) Description 04/24/2024 15:30 EST Telemedicine [facility] Pediatric Pulmonary - [address] [id number] Lucy Rodgers MD [address] [place] [phone] documented as of this encounter Visit Diagnoses Not on filedocumented in this encounter Care Teams Forestry Biology Specialist Relationship Specialty Start Date End Date Trell Pittman MD [address] [place] [address] PCP - General 04/10/09 documented as of this encounter
--- OUTSIDE RECORDS SUMMARY | 2024-03-30 21:48 | XMS_ITS | Encounter Summary ---
Author Organization [facility] Address [address] [place] [address] Care Team Providers Care Coffee Weigher Name Role Phone Trell Pittman MD Primary Care Provider +1 [phone] Encounter Details Date Type Department Care Team (Late st Contact Info) Description 03/13/2021 Lab Requisition [facility] Pathology & Laboratory Medicine - [address] [id number] Outr Resulting Lab, Provider Social History Tobacco [...] 15:30 EST Telemedicine [facility] Pediatric Pulmonary - [address] [address] Lucy Rodgers MD [address] [place] [address] documented as of this encounter Procedures Procedure Name Priority Date/Time Associated Diagnosis Comments ZZCOVID-19 TEST [facility] LAB PCR Today 03/12/2021 17:45 EDT COVID-19 TESTING Routine 03/12/2021 17:4 5 EDT documented in this encounter Results * [facility]-19 TEST [facility] (03/12/2021 17:45 EDT) Swab ENTIRE NASOPHARYNX / Unknown 03/12/2021 17:45 EDT 03/13/2021 17:19 EDT us Provider Outr Resulting Lab MICROBIOLOGY - GENER AL ORDERABLES Final Result Performing Organization Address City/[facility]/ZIP Co de Phone Number [facility] [address] [place] [address] * COVID-19 TESTING (03/12/2021 17:45 EDT) COVID-19 rt-PCR Result Negative Negative 03/15/2021 6:53 EDT [facility] Comment:This is an appended report. These results have been appended to a previously preliminary verified report. Performing Lab [facility] 03/15/2021 6:53 EDT [facility] Swab 03/12/2021 17:4 5 EDT 03/13/2021 17:19 EDT us Provider Outr Resulting Lab MICROBIOLOGY - GENER AL ORDERABLES Final Result [facility] [address] [place] [address] documented in this encounter Visit Diagnoses Not on filedocumented in this encounter Care Teams Coffee Weigher Relationship Specialty Start Date End Date Trell Pittman MD [address] [place] [address] PCP - General 04/10/09 documented as of this encounter
--- OUTSIDE RECORDS SUMMARY | 2024-03-30 21:48 | XMS_ITS | Encounter Summary ---
Author Organization [facility] Address [address] [place] [address] Care Team Providers Care Topographical Surveyor Name Role Phone Trell Pittman MD Primary Care Provider +1 [phone] Reason for Visit * Reason Comments Follow-up Encounter Details Date Type Department Care Team (Late st Contact Info) Description 09/06/2017 13:55 EDT Office Visit [facility] ENT- [address] [address] Felix Spears MD [address] [place] [address], [address] [place] [address] Sensorineural hearing loss (SNHL) of both ears (Primary Dx) Social History Tobacco Use Types [...] Progress Notes * Felix Spears MD - 09/06/2017 6872 EDT CHIEF COMPLAINT: Sensorineural hearing loss. HISTORY OF PRESENT ILLNESS: The patient has had no troubles since last visit, no hearing concerns, no ear infections. School is going well. She has had several upper respiratory infections without ear symptoms including pain, fever or drainage. OBJECTIVE: Alert, cooperative 11-year-old, well nourished, in no distress. Voice is normal today. Head and face inspection and palpation are both normal. Salivary glands are normal today. Facial strength is normal today. External ear and nose all normal today. Eyes are normal today. Otoscopy: Both ear canals, eardrums and middle ear spaces are normal. Nose: Midline septum, normal turbinates without discharge. Lip, teeth and gums all normal for her age. Oral cavity, oropharynx are normal today. Palpation of the neck reveals no adenopathy or masses. Audiogram shows normal hearing. ASSESSMENT: Resolved high-frequency hearing loss may be due to ear canal collapse. PLAN: Followup p.r.n. Family reassured. documented in this encounter Plan of Treatment Upcoming Encounters Date Type Department Care Team (Late st Contact Info) Description 04/24/2024 15:30 EST Telemedicine [facility] Pediatric Pulmonary - Main [address] [address] Lucy Rodgers MD [address] [place] [phone] documented as of this encounter Procedures Procedure Name Priority Date/Time Associated Diagnosis Comments AUDIOGRAM - SCANNED 09/07/2017 15:04 EDT documented in this encounter Results * AUDIOGRAM - SCANNED (09/07/2017 15:04 EDT) 09/07/2017 15:0 4 EDT us Scan 2 Stock Patcher PROCEDURE/MINOR SURGICAL OR DERABLES Final Result documented in this encounter Visit Diagnoses Diagnosis Sensorineural hearing loss (SNHL) of both ears- Primary documented in this encounter Care Teams Topographical Surveyor Relationship Specialty Start Date End Date Trell Pittman MD [address] [facility] [place] [address] PCP - General 04/10/09 documented as of this encounter
--- OUTSIDE RECORDS SUMMARY | 2024-03-30 21:48 | XMS_ITS | Encounter Summary ---
Author Organization [facility] Address [address] [place] [address] Care Team Providers Care Scheduler Conveyor Name Role Phone Trell Pittman MD Primary Care Provider [phone] [phone] Reason for Visit * Reason Onset Date Comments Medications Refill 11/28/2018 Encounter Details Date Type Department Care Team (Late st Contact Info) Description 11/28/2018 Telephone [facility] Pediatric Pulmonary - [facility] [address] [place] [address] James Franklin MD [address] [place] [address] Medications Refill Social History Tobacco [...] Answer Entry Date Author Yes 02/13/2010 0:00 AZIZAT Mohit Yusuf RN documented in this encounter Ordered Prescriptions Prescription Sig Dispense Quantity Refills Last Filled Start Date End Date budesonide-formote rol HFA (SYMBICORT) 160-4.5 mcg/actuation HFA aerosol inhaler inhalerIndications :Moderate persistent asthma without complication Inhale 2 Puffs as directed daily. 1 Inhaler 3 11/28/2018 9 levalbuterol (XOPENEX HFA) 45 mcg/actuation inhaler Inhale 2 Puffs as directed every 4 hours as needed (cough). 1 Inhaler 6 11/28/2018 0 documented in this encounter Miscellaneous Notes * Telephone Encounter - Ebony Abbott - 11/28/2018 1341 EDT Mom is calling needs a refill of the Symbicort and Albuterol called into [facility] Also should she be on allergy medication documented in this encounter Plan of Treatment Upcoming Encounters Date Type Department Care Team (Late st Contact Info) Description 04/24/2024 15:30 EST [facility]icine [facility] Pediatric Pulmonary - [facility] [address] [place], [place] [phone] Lucy Rodgers MD [address] [place] [phone] documented as of this encounter Visit Diagnoses Diagnosis Moderate persistent asthma without complication- Primary Unspecified asthma documented in this encounter Discontinued Medications Medication Sig Discontinue Reason Start Date End Da te levalbuterol (XOPENEX HFA) 45 mcg/actuation inhaler Inhale 2 Puffs as directed every 4 hours as needed. Reorder 08/08/2012 11/28/2018 budesonide-formoterol HFA (SYMBICORT) 160-4.5 mcg/actuation HFA aerosol inhaler inhalerIndications:Moder ate persistent asthma without complication Inhale 2 Puffs as directed daily. Reorder 01/28/2017 11/28/2018 documented as of this encounter Care Teams Scheduler Conveyor Relationship Specialty Start Date End Date Trell Pittman MD [address] [place] [address] PCP - General 04/10/09 documented as of this encounter
--- OUTSIDE RECORDS SUMMARY | 2024-03-30 21:48 | XMS_ITS | Encounter Summary ---
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 Hearing Loss ??? Tonsillar Hypertrophy HISTORY OF PRESENT ILLNESS: Rosario Ace is a 14 y.o. year old female who comes in today for recurrent otitis media chronic serous otitis media and chronic nasal congestion with nasal obstruction. She has had some chronic nasal discharge over the past several months. She is presently on some Singulair. She is also on some Flonase. Both helped a little bit. She had 3 ear infections over 6 weeks. Just recently. She is [facility] otherwise. Mom has no hearing concerns and her speech and language is normal. EXAM: Alert cooperative 14-year-old well-nourished in no distress Voice is normal today Head and face inspection and palpation are both normal salivary glands are normal today facial strength is normal today external ear nose all normal today Eyes are normal today Otoscopy both ear canals are normal both eardrums look a bit retracted Nose midline septum congested turbinates and a mucoid nasal discharge Lips teeth and gums all normal for her age Oral cavity oropharynx are normal today Palpation the neck feels no adenopathy or masses Audiogram ordered because of recurrent ear infections Audiogram demonstrates normal hearing for details see the audiogram. ASSESMENT/PLAN: Encounter Diagnoses Name Primary? Bilateral chronic serous otitis media Yes ??? 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 Rhinitis, chronic ??? 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 Ordered: 08/28/2020 documented as of this encounter Visit Diagnoses Diagnosis Bilateral chronic serous otitis media- Primary Simple or unspecified chronic serous otitis media 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
--- OUTSIDE RECORDS SUMMARY | 2024-03-30 21:48 | XMS_ITS | Encounter Summary ---
Author Organization [facility] Address [address] [place] [address] Care Team Providers Care Chief Informatics Officer Name Role Phone Trell Pittman MD Primary Care Provider [phone] [phone] Reason for Visit * Reason Onset Date Comments Advice Only 08/03/2019 Encounter Details Date Type Department Care Team (Late st Contact Info) Description 08/03/2019 Telephone [facility] Pediatric Pulmonary - [facility] [address] [place] [address] Lucy Rodgers MD [address] [place] [address] Advice Only Social History Tobacco Use Types Packs/Day Years [...] Miscellaneous Notes * Telephone Encounter - Kaylah Morocho RN - 08/03/2019 0842 EDT Spoke with Lucy, Rosario started to come down with cold a couple days ago, no fever or SOB, slightly congested and has a cough. Her brother was sick the past two weeks, so mom thinks she's got whatever he had. Mom wanted to know if she should be looking for any specific signs related to the coronavirus. I went over using her albuterol 2 puffs Q4, and increasing her vest treatments if needed. Suggestedthat mom call [facility] for further information about covid-19 and to check in with pcp as well, if her symptoms get worse over the next day or two. * Telephone Encounter - Myrna Garza - 08/03/2019 0894 EDT Kylie mom, Lucy, is calling for some advice as Rosario is coming down with a cold. Mom wants toknow what steps she should be taking and what to worry about. Please give her a call at [phone]. documented in this encounter Plan of Treatment Upcoming Encounters Date Type Department Care Team (Late st Contact Info) Description 04/24/2024 15:30 EST Telemedicine [facility] Pediatric Pulmonary - [address] [id number] Lucy Rodgers MD [address] [place] [phone] documented as of this encounter Visit Diagnoses Not on filedocumented in this encounter Care Teams Chief Informatics Officer Relationship Specialty Start Date End Date Trell Pittman MD [address] [place] [address] PCP - General 04/10/09 documented as of this encounter
--- OUTSIDE RECORDS SUMMARY | 2024-03-30 21:48 | XMS_ITS | Encounter Summary ---
Author Organization [facility] Address [address] [place] [address] Care Team Providers Care Sales Representative Aircraft Name Role Phone Trell Pittman MD Primary Care Provider +1 -[phone] Encounter Details Date Type Department Care Team (Late st Contact Info) Description 03/02/2021 Lab Requisition [facility] Pathology & Laboratory Medicine - [address] [phone] Outr Resulting Lab, Provider Social History Tobacco [...] Contact Info) Description 04/24/2024 15:30 EST Telemedicine [facility] Pediatric Pulmonary - [address] [address] Lucy Rodgers MD [address] [place] [address] documented as of this encounter Procedures Procedure Name Priority Date/Time Associated Diagnosis Comments ZZCOVID-19 TEST [facility] PCR Today 03/01/2021 13:45 EDT COVID-19 TESTING Routine 03/01/2021 13:4 5 EDT documented in this encounter Results * COVID-19 TEST [facility] PCR (03/01/2021 13:45 EDT) Swab ENTIRE NASOPHARYNX / Unknown 03/01/2021 13:45 EDT 03/02/2021 17:23 EDT us Provider Outr Resulting Lab MICROBIOLOGY - GENER AL ORDERABLES Final Result [facility] [address] [place] [address] * COVID-19 TESTING (03/01/2021 13:45 EDT) COVID-19 rt-PCR Result Negative Negative 03/03/2021 12:20 EDT [facility] Comment: This test has [...] was performed using the josse SARS-CoV-2 assay ([employer] on the Josse 6800 System Performing Lab [address] [address] [facility] 03/03/2021 12:20 EDT [facility] Swab 03/01/2021 13:4 5 EDT 03/02/2021 17:23 EDT us Provider Outr Resulting Lab MICROBIOLOGY - GENER AL ORDERABLES Final Result [facility] [address] [place] [address] documented in this encounter Visit Diagnoses Not on filedocumented in this encounter Care Teams Sales Representative Aircraft Relationship Specialty Start Date End Date Trell Pittman MD [address] [place] [place] [address] [place] [address] PCP - General 04/10/09 documented as of this encounter
--- OUTSIDE RECORDS SUMMARY | 2024-03-30 21:48 | XMS_ITS | Encounter Summary ---
Author Organization [facility] Address [address] [place] [address] Care Team Providers Care Rigging Up Man Name Role Phone Trell Pittman MD Primary Care Provider +1 -[phone] Reason for Visit * Reason Comments Other Encounter Details Date Type Department Care Team (Late Contact Info) Description 12/28/[address] [address] Lucy Rodgers MD [address] [place] [address] Other Social History Tobacco Use Types Packs/Day Years Used Date Smoking Tobacco: Never Comments:now living in apart ment [...] Date Author Yes 02/13/2010 0:00 AZIZAT Mohit Yuusf RN documented in this encounter Plan of Treatment Upcoming Encounters Date Type Department Care Team (Late st Contact Info) Description 04/24/2024 15:30 EST Telemedicine [address] [address] Lucy Rodgers MD [address] [place] [phone] documented as of this encounter Visit Diagnoses Not on filedocumented in this encounter Care Teams Rigging Up Man Relationship Specialty Start Date End Date Trell Pittman MD [address] [place] [address] [place] [address] PCP - General 04/10/09 documented as of this encounter
--- OUTSIDE RECORDS SUMMARY | 2024-03-30 21:48 | XMS_ITS | Encounter Summary ---
Author Organization [facility] Address [address] [place] [address] Care Team Providers Care Motel Operator Name Role Phone Trell Pittman MD Primary Care Provider +1 -[phone] Reason for Visit * Reason Onset Date Comments Update 10/05/2016 Encounter Details Date Type Department Care Team (Late st Contact Info) Description 10/05/2016 Telephone [facility] Pediatric Pulmonary - [facility] [address] [place] [address] Jason Mohan MD [address] [place] [address] Update Social History Tobacco Use Types Packs/Day Years [...] Telephone Encounter - Vaishali García RN - 10/16/2016 1108 EDT S/w sunil at [employer], asked her about PA, she said the [facility] they do not need to do anything it is covered. Asked her to have a nurse go to the house and collect the sample and send it off. Theyare also going to contact the family with setting up a time for them. I faxed off the insurance card to the lab, that is all they needed. * Telephone Encounter - Jason Mohan MD - 10/15/2016 1232 EDT This was supposed to be PCD testing through [employer]. * Telephone Encounter - Pj Lobato - 10/08/2016 0936 EDT What is the genetic testing for I have looked through the note and there is no mention of it and ifit is for CF there should be a sweat test * Telephone Encounter - Pj Lobato - 10/06/2016 1435 EDT I was told about any genetic testing so no auth * Telephone Encounter - Paula Blunt RN - 10/06/2016 0947 EDT Returned call to Kimmy at [facility] regarding Rosario. Received requisition form but no reason for testing and no MD entered. No sample received. How would you like to proceed? * Telephone Encounter - Alee Joyce - 10/05/2016 0904 EDT Kimmy calling, states they received order for Rosario. Did not received sample. documented in this encounter Plan of Treatment Upcoming Encounters Date Type Department Care Team (Late st Contact Info) Description 04/24/2024 15:30 EST Telemedicine [facility] Pediatric Pulmonary - [address] [address] Lucy Rodgers MD [address] [place] [phone] documented as of this encounter Visit Diagnoses Not on filedocumented in this encounter Care Teams Motel Operator Relationship Specialty Start Date End Date Trell Pittman MD [address] [place] [address] PCP - General 04/10/09 documented as of this encounter
--- OUTSIDE RECORDS SUMMARY | 2024-03-30 21:48 | XMS_ITS | Encounter Summary ---
Author Organization [facility] Address [address] [place] [address] Care Team Providers Care Manufacturers Agent Name Role Phone Trell Pittman MD Primary Care Provider [phone] [phone] Reason for Visit * Reason Onset Date Comments Scoliosis 07/22/2017 Encounter Details Date Type Department Care Team (Late st Contact Info) Description 07/22/2017 Orders Only [facility] Spine Program - [address] [place] [address] Arben Kate MD [address] [place] [address] [place] [address] Scoliosis (and kyphoscoliosis), idiopathic (Primary Dx) Social History Tobacco Use Types [...] Contact Info) Description 04/24/2024 15:30 EST Telemedicine [facility] Pediatric Pulmonary - Main [place] [address] [place], [place] [address] Lucy Rodgers MD [address] [place] [phone] documented as of this encounter Procedures Procedure Name Priority Date/Time Associated Diagnosis Comments ENTIRE SPINE 2-3 VIEWS Routine 08/03/2017 12:22 EDT Scoliosis (and kyphoscoliosis), idiopathic documented in this encounter Results * ENTIRE SPINE 2-3 VIEWS (08/03/2017 12:22 EDT) Anatomical Region Laterality Modality Other 08/03/2017 12:2 2 EDT 08/03/2017 14:58 EDT Narrative 08/03/2017 14:58 EDT ENTIRE SPINE 2-3 VIEWS ??08/03/2017 12:22 PM SIGNS AND SYMPTOMS/COMMENTS: ??M41.20-Other idiopathic scoliosis, site [id number]; scoliosis COMPARISON: Radiograph 05/05/2011. TECHNIQUE: PA and lateral views of the entire spine were obtained. FINDINGS: There is mild leftward curvature of the lumbar spine. Rightward curvature of the thoracolumbar junction is no longer present. Vertebral body and disc heights are preserved. No pelvic tilt identified. The lungs are clear. Bowel gas pattern is nonspecific. IMPRESSION: Mild spinal curvature. I have personally reviewed the images and the above interpretation and agree with the findings. Procedure Note Giacomo Barbosa MD - 08/03/2017 ENTIRE SPINE 2-3 VIEWS 08/03/2017 12:22 PM SIGNS AND SYMPTOMS/COMMENTS: M41.20-Other idiopathic scoliosis, site [id number]; scoliosis COMPARISON: Radiograph 05/05/2011. TECHNIQUE: PA and lateral views of the entire spine were obtained. FINDINGS: There is mild leftward curvature of the lumbar spine. Rightward curvature of the thoracolumbar junction is no longer present. Vertebral body and disc heights are preserved. No pelvic tilt identified. The lungs are clear. Bowel gas pattern is nonspecific. IMPRESSION: Mild spinal curvature. I have personally reviewed the images and the above interpretation and agree with the findings. us Arben Kate MD IMG DIAGNOSTIC IMAGING O RDERABLES Final Result documented in this encounter Visit Diagnoses Diagnosis Scoliosis (and kyphoscoliosis), idiopathic- Primary documented in this encounter Care Teams Manufacturers Agent Relationship Specialty Start Date End Date Trell Pittman MD [address] [place] [address] PCP - General 04/10/09 documented as of this encounter
--- OUTSIDE RECORDS SUMMARY | 2024-03-30 21:48 | XMS_ITS | Encounter Summary ---
Author Organization [facility] Address [address] [place] [address] Care Team Providers Care Annealing Oven Operator Name Role Phone Trell Pittman MD Primary Care Provider [phone] [phone] Encounter Details Date Type Department Care Team (Late st Contact Info) Description 04/15/2021 Orders Only [address] [address] Kaylah Almanzar RN Uncomplicated asthma, unspecified asthma [...] Contact Info) Description 04/24/2024 15:30 EST Telemedicine [address], [place] [phone] Lucy Rodgers MD [address] [place] [phone] documented as of this encounter Visit Diagnoses Diagnosis Uncomplicated asthma, unspecified asthma severity, unspecified whether persistent- Primary documented in this encounter Care Teams Annealing Oven Operator Relationship Specialty Start Date End Date Trell Pittman MD [address] [place] [address] [place] [address] PCP - General 04/10/09 documented as of this encounter
--- OUTSIDE RECORDS SUMMARY | 2024-03-30 21:48 | XMS_ITS | Encounter Summary ---
Author Organization [facility] Address [address] [place] [address] Care Team Providers Care Public Finance Specialist Name Role Phone Trell Pittman MD Primary Care Provider [phone] [phone] Reason for Visit * Reason Onset Date Comments Appointment Related 09/01/2019 Encounter Details Date Type Department Care Team (Late st Contact Info) Description 09/01/2019 Telephone [facility] Pediatric Pulmonary - [facility] [address] [place] [address] Lucy Rodgers MD [address] [place] [address] Appointment Related Social History Tobacco [...] encounter Miscellaneous Notes * Telephone Encounter - Allan John - 09/01/2019 0951 EDT Reached out to the patients mother to make sure they were comfortable with getting Zoom set up for her daughters upcoming appointment. She said her daughter is familiar with Zoom but the mother does not have the Zoom e-mail invitation and would appreciate if it could be resent to her e-mail. documented in this encounter Plan of Treatment Upcoming Encounters Date Type Department Care Team (Late st Contact Info) Description 04/24/2024 15:30 EST Telemedicine [facility] Pediatric Pulmonary - [address] [id number] Lucy Rodgers MD [address] [place] [phone] documented as of this encounter Visit Diagnoses Not on filedocumented in this encounter Care Teams Public Finance Specialist Relationship Specialty Start Date End Date [place] [address] PCP - General 04/10/09 documented as of this encounter
--- OUTSIDE RECORDS SUMMARY | 2024-03-30 21:48 | XMS_ITS | Encounter Summary ---
Author Organization [facility] Address [address] [place] [address] Care Team Providers Care Solid Waste Truck Driver Name Role Phone Trell Pittman MD Primary Care Provider [phone] [phone] Reason for Visit * Reason Onset Date Comments Coordination Of Care 01/27/2017 Encounter Details Date Type Department Care Team (Late st Contact Info) Description 01/27/2017 Telephone [facility] Pediatric Pulmonary - [facility] [address] [place] [address] Brittany Byrd RN [address] [place] [address] Coordination Of Care Social History Tobacco Use [...] Telephone Encounter - Brittany Byrd RN - 01/27/2017 1554 EDT Attempted both mom's numbers to see if lab work got done unable to get through, no voicemail available and not accepting call, as well as no longer in service documented in this encounter Plan of Treatment Upcoming Encounters Date Type Department Care Team (Late st Contact Info) Description 04/24/2024 15:30 EST Telemedicine [facility] Pediatric Pulmonary - [address] [address] Lucy Rodgers MD [address] [place] [phone] documented as of this encounter Visit Diagnoses Not on filedocumented in this encounter Care Teams Solid Waste Truck Driver Relationship Specialty Start Date End Date Trell Pittman MD [address] [place] [address] PCP - General 04/10/09 documented as of this encounter
--- OUTSIDE RECORDS SUMMARY | 2024-03-30 21:48 | XMS_ITS | Encounter Summary ---
Author Organization [facility] Address [address] [place] [address] Care Team Providers Care Adoption Agent Name Role Phone Trell Pittman MD Primary Care Provider [phone] [phone] Reason for Visit * Reason Comments Follow-up ear check Encounter Details Date Type Department Care Team (Late st Contact Info) Description 01/28/2017 11:10 EDT Office Visit [facility] ENT- Main [address] [address] Felix Spears MD [address] [facility], Level [address] [place] [address] Sensorineural hearing loss (SNHL) of [...] Progress Notes * Felix Spears MD - 01/28/2017 1110 EDT CHIEF COMPLAINT: Recurrent otitis media, chronic serous otitis media. HISTORY OF PRESENT ILLNESS: The patient has had no recent ear infections or hearing concerns and speech and language is normal. School went well in the last couple years. OBJECTIVE: Alert, cooperative 11-year-old, well nourished, in no distress. Voice is normal today. Head and face inspection and palpation are both normal. Salivary glands are normal today. Facial strength is normal today. External ear and nose all normal today. Eyes are normal today. Otoscopy: Both ear canals, eardrums, and middle ear spaces are normal. There is some thickening to both eardrums. Nose: Midline septum, normal turbinates without discharge. Lip, teeth, and gums all normal for her age. Oral cavity, oropharynx are normal today. Palpation of the neck reveals no adenopathy or masses. Audiogram shows normal hearing through 4000 Hz with some high-frequency hearing loss at 8000 bilatera lly. ASSESSMENT: Mild high-frequency hearing loss at 8000 Hz. PLAN: Followup 1 year. documented in this encounter Plan of Treatment Upcoming Encounters Date Type Department Care Team (Late st Contact Info) Description 04/24/2024 15:30 EST Telemedicine [facility] Pediatric Pulmonary - [facility] [address] [place], [place] [address] Lucy Rodgers MD [address] [place] [phone] documented as of this encounter Procedures Procedure Name Priority Date/Time Associated Diagnosis Comments AUDIOGRAM - SCANNED 02/02/2017 9:20 EDT documented in this encounter Results * AUDIOGRAM - SCANNED (02/02/2017 9:20 EDT) 02/02/2017 9:20 EDT us Scan 2 Remedial Reading Teacher PROCEDURE/MINOR SURGICAL OR DERABLES Final Result documented in this encounter Visit Diagnoses Diagnosis Sensorineural hearing loss (SNHL) of both ears- Primary documented in this encounter Care Teams Adoption Agent Relationship Specialty Start Date End Date Trell Pittman MD [address] [place] [address] [place] [address] PCP - General 04/10/09 documented as of this encounter
--- OUTSIDE RECORDS SUMMARY | 2024-03-30 21:48 | XMS_ITS | Encounter Summary ---
Author Organization [facility] Address [address] [place] [address] Care Team Providers Care Sheet Metal Superintendent Name Role Phone Trell Pittman MD Primary Care Provider [phone] [phone] Reason for Visit * Reason Onset Date Comments Appointment Related 01/28/2016 Encounter Details Date Type Department Care Team (Late st Contact Info) Description 01/28/2016 Telephone [facility] Pediatric Pulmonary - [facility] [address] [place] [address] Jason Mohan MD [address] [place] [address] Appointment Related Social History Tobacco [...] Miscellaneous Notes * Telephone Encounter - Alee Joyce - 01/28/2016 0859 EDT Called mom to schedule 3 mo fur with PFT. VM was not set up, will try back. documented in this encounter Plan of Treatment Upcoming Encounters Date Type Department Care Team (Late st Contact Info) Description 04/24/2024 15:30 EST Telemedicine [facility] Pediatric Pulmonary - [address] [phone] Lucy Rodgers MD [address] [place] [phone] documented as of this encounter Visit Diagnoses Not on filedocumented in this encounter Care Teams Sheet Metal Superintendent Relationship Specialty Start Date End Date Trell Pittman MD [address] [place] [address] PCP - General 04/10/09 documented as of this encounter
--- OUTSIDE RECORDS SUMMARY | 2024-03-30 21:48 | XMS_ITS | Encounter Summary ---
Author Organization [facility] Address [address] [place] [address] Care Team Providers Care Mold Cleaner Name Role Phone Trell Pittman MD Primary Care Provider [phone] [phone] Reason for Visit * Reason Comments Other Encounter Details Date Type Department Care Team (Late st Contact Info) Description 04/20/2018 Refill [facility] - [facility] [address] [place] [address] Rashmi Tabares, HOUSE RN [address] [place] [address] Other Social History Tobacco Use Types Packs/Day [...] Date End Date PROAIR HFA 90 mcg/actuation inhalerIndications :Moderate persistent asthma without complication inhale 2 to 4 puffs by mouth every 4 hours if needed for WHEEZING, COUGH, SHORTNESS OF BREATH 8.5 g 3 04/20/2018 9 documented in this encounter Plan of Treatment Upcoming Encounters Date Type Department Care Team (Late st Contact Info) Description 04/24/2024 15:30 EST Telemedicine [facility] Pediatric Pulmonary - [address] [phone] Lucy Rodgers MD [address] [place] [phone] documented as of this encounter Visit Diagnoses Diagnosis Moderate persistent asthma without complication Unspecified asthma documented in this encounter Discontinued Medications Medication Sig Discontinue Reason Start Date End Da te albuterol (PROAIR HFA) 90 mcg/actuation inhalerIndications:Moder ate persistent asthma without complication Inhale 2-4 Puffs as directed every 4 hours as needed for Wheezing (cough, short of breath). Reorder 01/28/2017 04/20/2018 documented as of this encounter Care Teams Mold Cleaner Relationship Specialty Start Date End Date Trell Pittman MD [address] [place] [address] PCP - General 04/10/09 documented as of this encounter
--- OUTSIDE RECORDS SUMMARY | 2024-03-30 21:48 | XMS_ITS | Encounter Summary ---
Author Organization [facility] Address [address] [place] [address] Care Team Providers Care Superintendent Ammunition Storage Name Role Phone Trell Pittman MD Primary Care Provider [phone] [phone] Reason for Visit * Reason Onset Date Comments Advice Only 12/08/2019 Appointment Related 12/11/2019 Encounter Details Date Type Department Care Team (Late st Contact Info) Description 12/08/2019 Telephone [facility] Pediatric Pulmonary - [facility] [address] [place] [address] Lucy Rodgers MD [address] [place] [address] Advice Only; Appointment Related Social History Tobacco Use Types [...] Refills Last Filled Start Date End Date fluticasone propionate (FLONASE) 50 mcg/actuation nasal spray Instill 1 [place] into both nostrils daily. 1 Bottle 5 12/08/2019 montelukast (SINGULAIR) 10 mg tablet Take 1 Tab by mouth at bedtime. 90 Tab 1 12/08/2019 1 documented in this encounter Miscellaneous Notes * Telephone Encounter - Alee Regan - 12/11/2019 1022 EDT Called mom, VM not set up. Sent [employer] message asking to call back and schedule sooner appt. Going to offer 01/09. * Telephone Encounter - Kaylah Morocho RN - 12/11/2019 0941 EDT Spoke with mom, she agreed to have Rosario seen sooner than the February visit to assess her asthma contol. Alee will call mom back to set up appointment w/ pft. * Telephone Encounter - Kaylah Morocho RN - 12/08/2019 1414 EDT Tried calling mom back with the number listed ([phone]) and the number is no longer a workingnumber. Tried calling Dad's number and he gave me a different number to call [phone]. Able to reach mom via new number, she's worried about Rosario returning to school since she's been struggling to wear a mask for 5-10 minutes in stores. They've tried different sizes, materials, etc.Mom said she feels SOB and rips it off, pulls it down in the stores, says she can't breath with iton. Mom is wondering if wearing the mask is harmful (due to her asthma) and doesn't want her to pass out wearing it all day. Mom said her breathing is at it's baseline, but wanted to know Dr. Rodgers's thoughts about her returning to school/wearing the mask all day. * Telephone Encounter - Cezar De La Garza - 12/08/2019 9313 EDT Mom is calling to speak to one of the Pulmonary Nurses because she needs some guidance on Rosario because she is struggling to wear a mask given her condition. They have tried multiple types and havehad the same results. Also mom is contemplating having her go back to school as well Please give her a call back to discuss Thanks documented in this encounter Plan of Treatment Upcoming Encounters Date Type Department Care Team (Late st Contact Info) Description 04/24/2024 15:30 EST Telemedicine [facility] Pediatric Pulmonary - [address] [phone] Lucy Rodgers MD [address] [place] [phone] documented as of this encounter Visit Diagnoses Not on filedocumented in this encounter Discontinued Medications Medication Sig Discontinue Reason Start Date End Da te montelukast (SINGULAIR) 10 mg tablet Take 1 Tab by mouth at bedtime. Reorder 09/04/2019 12/08/2019 fluticasone propionate (FLONASE) 50 mcg/actuation nasal spray Instill 1 [place] into both nostrils daily. Reorder 09/04/2019 12/08/2019 documented as of this encounter Care Teams Superintendent Ammunition Storage Relationship Specialty Start Date End Date Trell Pittman MD [address] [place], [place] [address] [address] PCP - General 04/10/09 documented as of this encounter
--- OUTSIDE RECORDS SUMMARY | 2024-03-30 21:48 | XMS_ITS | Encounter Summary ---
Author Organization [facility] Address [address] [place] [address] Care Team Providers Care Item Processor Name Role Phone Trell Pittman MD Primary Care Provider [phone] [phone] Reason for Visit * Reason Comments Asthma Encounter Details Date Type Department Care Team (Late st Contact Info) Description 09/04/2019 11:30 EDT Telemedicine [facility] Pediatric Pulmonary - Main [place] [address] [place] [address] Lucy Rodgers MD [address] [place] [address] Moderate persistent asthma without complication [...] (FLONASE) 50 mcg/actuation nasal spray Instill 1 [place] into both nostrils daily. 1 Bottle 5 09/04/2019 0 cetirizine (ZYRTEC) 10 mg tablet Take 1 Tab by mouth daily. 90 Tab 2 09/04/2019 1 budesonide-formote rol HFA (SYMBICORT) 160-4.5 mcg/actuation HFA aerosol inhaler inhalerIndications :Moderate persistent asthma without complication Inhale 2 Puffs as directed 2 times daily. 3 Inhaler 3 09/04/2019 0 montelukast (SINGULAIR) 10 mg tablet Take 1 Tab by mouth at bedtime. 90 Tab 2 09/04/2019 0 montelukast (SINGULAIR) 10 mg tablet Take 1 Tab by mouth at bedtime. 30 Tab 2 09/04/2019 0 budesonide-formote rol HFA (SYMBICORT) 160-4.5 mcg/actuation HFA aerosol inhaler inhalerIndications :Moderate persistent asthma without complication Inhale 2 Puffs as directed 2 times daily. 1 Inhaler 3 09/04/2019 0 documented in this encounter Progress Notes * Lucy Rodgers MD - 09/04/2019 1130 EDT Images from the original note were not included. Pediatric Pulmonology James Franklin M.D., Lucy Rodgers M.D, Jason Mohan M.D., JULES Tai M.D. [address] [address] Encounter Date: 09/04/[address] [facility] [id number] Chief Complaint: Rosario is a 13 y.o. female who is seen by pediatric pulmonology via telehealth video visit for followup of asthma. Rosario is accompanied by her mother who contributed to the history. TELEMEDICINE VIDEO VISIT Today's visit was provided through telemedicine video conferencing: due to covid-19 pandemic and need for asthma management The location of the patient: home The location of the provider: home office The following staff and their role did participate in today's encounter visit: myself The concept of ???Telemedicine?? has been described [...] mental health care. Subjective: Rosario has been generally well from a respiratory standpoint. Since she has been schooling at homefor the past 5 weeks, she has not had any colds. She has also been a lot less active. Rosario does have cough at night. Her mom says she has noticed this for quite a while. Rosario doesn't wake with the cough. She does snore. There is no obvious apnea. Unclear if the cough is related to the snoring. There are no reflux symptoms. Allergic symptoms are currently increased. Cough at night preceded the allergic symptoms. She has not had any recent sinus infections. There is no daytime cough. She has no exertional symptoms but has not been very active. She is adherent with Symbicort in the morning, often misses evening dose. She is using her spacer. She is taking cetirizine but at a dose of 5 mg. She takes Flonase, a few days per week. She just gotsome nasal rinses and will start them. Typical triggers: Infections / Colds, Environmental Allergies, Air Pollution, Dust Mites, Exercise,Cigarette Smoke Classification of Asthma Control: Daytime symptoms: None Nighttime awakenings: 1-3 times/week Interference with normal activity: None Short-acting Beta agonist use for symptom control: Less than or equal to 2 days/week Exacerbations requiring oral systemic corticosteroids: 0-1/year ATAQ Score: 0 Medication Use: Rescue/quick relief medicines: ?? Albuterol MDI. Rosario has needed to use this medication only with colds. Preventive/long-term control: ?? montelukast (SINGULAIR TABLET) 10mg ?? budesonide-formoterol (SYMBICORT HFA) 160mcg-4.5mcg Proper use of chamber / mask: Yes Medication Compliance: Adherent Gastrointestinal/Nutrition: Appetite is good. Diet: healthy diet in general Gastroesophageal reflux symptoms are absent. Otolaryngology: Rosario has had nasal congestion. Allergic symptoms are present. She snores. General Health: Overall behavior and activity has been normal. Exercise: not active Environmental History: There have been no [...] History: Procedure Laterality Date ??? ADENOIDECTOMY ??? MT BRNCHSC W/BRNCL ALVEOLAR LAVAGE 02/11/2010 ??? MT BRNCHSC W/BRNCL ALVEOLAR LAVAGE 02/04/2011 ??? MT CREATE EARDRUM OPENING,GEN ANESTH ??? PYLOROMYOTOMY 3 [...] Outpatient Medications Marked as Taking for the 09/04/19 encounter (Telemedicine) with Lucy Rodgers MD Medication Sig Dispense Refill ??? budesonide-formoterol HFA (SYMBICORT) 160-4.5 mcg/actuation HFA aerosol inhaler inhaler Inhale 2 Puffs as directed 2 times daily. 3 Inhaler 3 ??? [DISCONTINUED] budesonide-formoterol HFA (SYMBICORT) 160-4.5 mcg/actuation HFA aerosol inhaler inhaler Inhale 2 Puffs as directed 2 times daily. 1 Inhaler 3 ??? [DISCONTINUED] budesonide-formoterol HFA (SYMBICORT) 160-4.5 mcg/actuation HFA aerosol inhaler inhaler Inhale 2 Puffs as directed daily. 1 Inhaler 5 ??? fluticasone propionate (FLONASE) 50 mcg/actuation nasal spray Instill 1 [place] into both nostrils daily. 1 Bottle 5 ??? [DISCONTINUED] fluticasone propionate (FLONASE) 50 mcg/actuation nasal spray Instill 1 [place] into both nostrils daily. 1 Bottle 5 ??? inhalational spacing device (AEROCHAMBER) Inhale 1 Device as directed daily. Spacer for MDI 1 Device 3 ??? montelukast (SINGULAIR) 10 mg tablet Take 1 Tab by mouth at bedtime. 90 Tab 2 ??? PROAIR HFA 90 mcg/actuation inhaler Inhale 2-4 [...] father regularly) dad every other weekend and and Wed ??? Other individuals living in [...] Appearance: awake and alert, no acute distress, pleasant Head: normocephalic, atraumatic Eye: no ocular erythema or discharge Ear: normally placed and normal external appearance Nose: no discharge Mouth\Throat: moist appearing mucosa Chest\Lungs: no increased respiratory effort or accessory muscle use, no audible wheeze or stridor,cough is absent Abdomen: no apparent distension Heart: no cyanosis Skin: no apparent rashes MSK: symmetric movements with no apparent deficits in coordination or strength Diagnostic Data PFT's Not performed X-rays: No x-rays were reviewed during this encounter Assessment and Plan Rosario is a 13 y.o. female with Moderate Persistent asthma who is symptomatic with nocturnal cough. Asthma maybe suboptimally controlled. Allergic rhinitis may be a factor. Discussed adherence with asthma therapy. Discussed allergy treatment with increasing to 10 mg cetirizine and adhering with daily Flonase. She should resume her sinus rinses which she plans to do. She should resume daily airway clearance. She still has not had genetic testing for ciliary dyskinesia and this can be discussed again at a future visit I discussed the following treatment plan with Rosario and her mother. Asthma ?? Maintenance (Green) Medications: - budesonide-formoterol (SYMBICORT HFA) 160mcg-4.5mcg 2 inhalations twice daily - montelukast 10 mg daily ?? Rescue (Yellow) Medications: albuterol MDI2 inhalations every 4 hours ?? Emergency (Red) Medications:albuterol MDI 4 puffs ?? Cetirizine 10 mg daily ?? Flonase 1 spray each nostril daily after sinus rinses ?? Acapella after Symbicort in the evening ?? Focus on adherence to BID Symbicort ?? Possible PCD genetic testing at a future visit, if Rosario agrees (she so far has not been interested) ?? Return to clinic in 6 months; instructed mom to call in the interim if cough does not resolve orif allergic symptoms hard to control Education / Self Management Goals: Symptomatic treatments reviewed. Patient's condition, differential diagnosis, and Treatment Plan reviewed. Teaching provided for the listed diagnoses and/or medications. Action plan given and discussed. Triggers and risk factors discussed. Follow up if symptoms persist, increase, or as instructed. Please feel free to contact us with questions or comments regarding Rosario's care. Sincerely, Lucy Rodgers MD documented in this encounter Plan of Treatment Upcoming Encounters Date Type Department Care Team (Late st Contact Info) Description 04/24/2024 15:30 EST Telemedicine [facility] Pediatric Pulmonary - Main [address] [phone] Lucy Rodgers MD [address] [place] [phone] documented as of this encounter Visit Diagnoses Diagnosis Moderate persistent asthma without complication- Primary Unspecified asthma documented in this encounter Discontinued Medications Medication Sig Discontinue Reason Start Date End Da te levalbuterol (XOPENEX HFA) 45 mcg/actuation inhaler Inhale 2 Puffs as directed every 4 hours as needed (cough). Therapy completed 11/28/2018 09/04/2019 budesonide-formoterol HFA (SYMBICORT) 160-4.5 mcg/actuation HFA aerosol inhaler inhalerIndications:Moder ate persistent asthma without complication Inhale 2 Puffs as directed daily. Reorder 02/06/2019 09/04/2019 montelukast (SINGULAIR) 10 mg tablet Take 1 Tab by mouth at bedtime. Reorder 09/04/2019 09/04/2019 budesonide-formoterol HFA (SYMBICORT) 160-4.5 mcg/actuation HFA aerosol inhaler inhalerIndications:Moder ate persistent asthma without complication Inhale 2 Puffs as directed 2 times daily. Reorder 09/04/2019 09/04/2019 fluticasone propionate (FLONASE) 50 mcg/actuation nasal spray Instill 1 [place] into both nostrils daily. Reorder 02/06/2019 09/04/2019 documented as of this encounter Care Teams Item Processor Relationship Specialty Start Date End Date Trell [place] [address] PCP - General 04/10/09 documented as of this encounter
--- OUTSIDE RECORDS SUMMARY | 2024-03-30 21:48 | XMS_ITS | Encounter Summary ---
Author Organization [facility] Address [address] [place] [address] Care Team Providers Care Field Captain Name Role Phone Trell Pittman MD Primary Care Provider [phone] [phone] Reason for Referral * Test (Routine) - Closed Specialty Diagnoses / Procedures [facility] Referred To Contact Pediatric Pulmonology Diagnoses Moderate persistent asthma without complication Procedures SPIROMETRY WITH BRONCHODILATOR OK EVAL OF BRONCHOSPASM Lucy Rodgers MD Phone: tel: fax: [facility] [address] [address] Phone: tel: fax: Referral ID Status Reason Start Date Expiration Date Visits Re quested Visits Authorized [id number] Closed 03/22/2019 1 1 Reason for Visit * Reason Comments Asthma Encounter Details Date Type Department Care Team (Late st Contact Info) Description 11/14/2018 10:00 EDT Office Visit [facility] [address] [id number] Lucy Rodgers MD [address] [place] [phone] Moderate persistent asthma without complication (Primary [...] Sign Reading Time Taken Comments Blood Pressure 122/62 11/14/201835 EDT Pulse 72 11/14/201835 EDT Temperature - - Respiratory Rate 14 11/14/201835 EDT Oxygen Saturation 98% 11/14/2018934 EDT Inhaled Oxygen Concentration - - Weight 54.2 kg (119 lb 7.8 oz) 11/14/2018934 E DT Height 171.6 cm (5' 7.56) 11/14/2018 0935 EDT Body Mass Index 18.41 11/14/201835 EDT Body Mass Index Percentile 37.60% 11/14/2018 093 5 EDT Growth Chart: [facility] (Girls, 2- 20 Years) documented in this encounter Mental Status * Because of a physical, mental, or emotional condition, do you have serious difficulty concentrating, remembering, or making decisions? (5 years old or older) Answer Entry Date Author Yes 02/13/2010 0:00 EDT Mohit Yusuf RN documented in this encounter Progress Notes * Lucy Rodgers MD, MD - 11/14/2018 1000 EDT Images from the original note were not included. Pediatric Pulmonology James Franklin M.D., Fer PearceNDavin., Lucy Rodgers M.D, Jason Mohan M.D. [address] [address] Encounter Date: 11/14/2018 Trell [facility] [id number] Chief Complaint: Rosario is a 12 y.o. female who is seen in pulmonary clinic for asthma. Rosario is accompanied by her mother, step father who contributed to the history. Subjective: They report that Rosario has been doing generally well from a respiratory standpoint. She does report some exertional shortness of breath and chest tightness for which she pretreats with albuterol with good symptom relief. She has no chronic cough during the day, night, or with activity. She has noreflux symptoms. She has chronic nasal congestion that does not typically bother her. Allergy symptoms are unclear. She is reticent to do any sinus rises and also has not been taking Flonase. There are no headaches. She does not tend to snore. She has not had any notable respiratory tract infections or sinusitis over the cold season. She is very active. They report adherence to Symbicort but refill history does not at all support this. She uses a spacer for her inhalers. She is using vest daily. Typical triggers: Infections / Colds, Environmental Allergies, Air Pollution, Dust Mites, Exercise,Cigarette Smoke Classification of Asthma Control: Daytime symptoms: Less than or equal to 2 days/week Nighttime awakenings: None Interference with normal activity: None Short-acting Beta agonist use for symptom control: Less than or equal to 2 days/week Exacerbations requiring oral systemic corticosteroids: 0-1/year ATAQ Score: 3 Medication Use: Rescue/quick relief medicines: ?? Albuterol MDI. Rosario has needed to use this medication only with exercise. Preventive/long-term control: ?? Reports use of Symbicort but refill history does not support this Proper use of chamber / mask: Yes Medication Compliance: reports adherence though this is unclear based on refill history Gastrointestinal/Nutrition: Appetite is good. Diet: healthy diet in general Gastroesophageal reflux symptoms are absent. No abdominal complaints. Otolaryngology: Rosario has had chronic congestion, not increased from baseline. General Health: Overall behavior and activity has been normal. Exercise: very active Environmental History: There have been no changes to the home environment since the last visit. Environmental Tobacco Exposure: No REVIEW OF SYSTEMS: A complete review of systems was obtained and was negative except [...] History: Procedure Laterality Date ??? ADENOIDECTOMY ??? OK BRNCHSC W/BRNCL ALVEOLAR LAVAGE 02/11/2010 ??? OK BRNCHSC W/BRNCL ALVEOLAR LAVAGE 02/04/2011 ??? OK CREATE EARDRUM OPENING,GEN ANESTH ??? PYLOROMYOTOMY 3 [...] Outpatient Medications Marked as Taking for the 11/14/18 encounter (Office Visit) with Lucy Rodgers MD Medication Sig Dispense Refill ??? budesonide-formoterol HFA (SYMBICORT) 160-4.5 mcg/actuation HFA aerosol inhaler inhaler Inhale 2 Puffs as directed daily. 1 Inhaler 3 ??? inhalational spacing device (AEROCHAMBER) Inhale 1 Device as directed daily. Spacer for MDI 1 Device 3 ??? [DISCONTINUED] PROAIR HFA 90 mcg/actuation inhaler inhale 2 to 4 puffs by mouth every 4 hours if needed for WHEEZING, COUGH, SHORTNESS OF BREATH 8.5 g 3 Allergies Allergen Reactions ??? Bee Venom Protein [...] portion of this note. Objective Data BP 122/62 Pulse 72 Resp 14 Ht 171.6 cm (67.56) Wt 54.2 kg (119 lb 7.8 oz) SpO2 98% BMI18.41 kg/m?? General Appearance: well appearing, alert, no acute distress, pleasant and cooperative Head: normocephalic, atraumatic Eye: no injection, no discharge Ear: TMs clear bilaterally Nose: mucosal erythema, mucosal edema, clear secretions Mouth\Throat: moist mucosa, oropharynx without [...] PFT's PFTS (Before Albuterol Treatment) FVC (L): 3.7 liters FVC % Pred: 102 FEV1 (L): 3.47 liters FEV 1 % Pred: 107 FEF 25-75% (L/scc): 4.91 FEF 25-75% Pred: 128 PFTS (After Albuterol Treatment) FVC (L) (After Albuterol): 3.73 liters FVC % Pred (After Albuterol): 103 FEV1 (L) (After Albuterol): 3.5 liters FEV 1 % Pred (After Albuterol): 108 FEF 25-75% (L/scc) (After Albuterol): 5.01 FEF 25-75% Pred (After Albuterol): 131 X-rays: No x-rays were reviewed during this encounter Assessment and Plan Rosario is a 12 y.o. female with Moderate Persistent asthma who is stable. She does have exertionalasthma symptoms that may be controlled with pretreatment with albuterol. Unclear whether she is actually taking Symbicort or receiving the correct medication as refill history shows no refills of this medication. New action plan made and new prescriptions sent for Symbicort. She would benefit from sinus rinses and possibly nasal steroid though has not been interested in this. Rosario still unsureabout blood draw for PCD genetic testing as has been discussed in the past. Spirometry (FEV1) is normal without bronchodilator response. Exacerbating factors may include exercise, allergic rhinitis and environmental triggers. I discussed the following treatment plan with her mother, step father. ?? Maintenance (Green) Medications: use with spacer and rinse mouth after each use. ?? Symbicort 160-4.5 2 puffs twice daily ?? Vest or acapella daily - Acapella daily at school on the days when she is not receiving vest at home (mom will schedule with school) ?? Rescue (Yellow) Medications: albuterol MDI 2-4 puffs every 4 hours ?? Emergency (Red) Medications:albuterol MDI 4 puffs twice and call physician ?? Recommend working on daily sinus rinse and consider Flonase; at least start sinus rinse when symptomatic with illness or increased congestion ?? Possible PCD genetic testing with an upcoming visit, if Rosario agrees (she is still considering) ?? Seasonal Influenza Vaccine: recommended for fall ?? Return to clinic in 3-4 months Education / Self Management Goals:Symptomatic treatments reviewed. Patient's condition, differential diagnosis, and Treatment Plan reviewed. Teaching provided for the listed diagnoses and/or medications. Action plan given and discussed. Spacer use discussed. Triggers and risk factors discussed. Medications per orders. Follow up if symptoms persist, increase, or as instructed. Please feel free to contact us with questions or comments regarding Rosario's care. Sincerely, Lucy Rodgers MD documented in this encounter Plan of Treatment Upcoming Encounters Date Type Department Care Team (Late st Contact Info) Description 04/24/2024 15:30 EST Telemedicine [facility] Pediatric Pulmonary - Main [address] [address] Lucy Rodgers MD [address] [place] [phone] documented as of this encounter Visit Diagnoses Diagnosis Moderate persistent asthma without complication- Primary Unspecified asthma documented in this encounter Discontinued Medications Medication Sig Discontinue Reason Start Date End Da te cetirizine (ZYRTEC) 10 mg tablet Take 1 Tab by mouth daily as needed for Allergies. 01/28/2017 11/14/2018 montelukast (SINGULAIR) 5 mg chewable tablet Take 1 Tab by mouth every evening. 01/28/2017 11/14/2018 PROAIR HFA 90 mcg/actuation inhalerIndications:Mod erate persistent asthma without complication inhale 2 to 4 puffs by mouth every 4 hours if needed for WHEEZING, COUGH, SHORTNESS OF BREATH 04/20/2018 11/14/2018 sodium chloride 7 % solution for nebulization Take 4 mL by nebulization 2 times daily 03/22/2015 11/14/2018 documented as of this encounter Orders PFT Count Last Ordered Date First Orde red Date SPIROMETRY WITH BRONCHODILATOR 1 11/19/2018 documented in this encounter Care Teams Field Captain Relationship Specialty Start Date End Date Trell Pittman MD [address] [place] [address] PCP - General 04/10/09 documented as of this encounter
--- OUTSIDE RECORDS SUMMARY | 2024-03-30 21:48 | XMS_ITS | Encounter Summary ---
Author Organization [facility] Address [address] [place] [address] Care Team Providers Care Ironworker Helper Shop Name Role Phone Trell Pittman MD Primary Care Provider [phone] Reason for Visit * Reason Onset Date Comments Coordination Of Care 09/11/2016 Appointment Related 09/11/2016 Encounter Details Date Type Department Care Team (Late st Contact Info) Description 09/11/2016 Telephone [facility] Pediatric Pulmonary - [facility] [address] [place] [address] Brittany Byrd, RAÚL [address] [place] [address] Coordination Of Care; Appointment Related Social History Tobacco Use Types [...] Author Yes 02/13/2010 0:00 EDT Mohit Yusuf, RN documented in this encounter Miscellaneous Notes * Telephone Encounter - Alee Joyce - 09/11/2016 0905 EDT Called mom. Left VM letting her know we are working on rescheduling 09/11 cancelled appts. * Telephone Encounter - Brittany Byrd RN - 09/11/2016 0803 EDT Called family, per Dr. Mohan's note there is plan for Genetic testing today but no PA has been done and genetic testing even ordered. I spoke with mom explained that the plan for genetic testing wouldn't be played out today, our candy rolling machine operator will be calling to reschedule with Dr Mohan documented in this encounter Plan of Treatment Upcoming Encounters Date Type Department Care Team (Late st Contact Info) Description 04/24/2024 15:30 EST Telemedicine [facility] Pediatric Pulmonary - [address] [id number] Lucy Rodgers MD [address] [place] [phone] documented as of this encounter Visit Diagnoses Not on filedocumented in this encounter Care Teams Ironworker Helper Shop Relationship Specialty Start Date End Date Trell Pittman MD [address] [place] [address] [place] [address] PCP - General 04/10/09 documented as of this encounter
--- OUTSIDE RECORDS SUMMARY | 2024-03-30 21:48 | XMS_ITS | Encounter Summary ---
Author Organization [facility] Address [address] [place] [address] Care Team Providers Care Patient Access Associate Name Role Phone Trell Pittman MD Primary Care Provider [phone] Encounter Details Date Type Department Care Team (Late st Contact Info) Description 08/08/2020 Lab Requisition [facility] Pathology & Laboratory Medicine - [address] [address] Outr Resulting Lab, Provider Social History Tobacco [...] Contact Info) Description 04/24/2024 15:30 EST Telemedicine [facility] Pediatric Pulmonary - [address] [address] Lucy Rodgers MD [address] [place] [address] documented as of this encounter Procedures Procedure Name Priority Date/Time Associated Diagnosis Comments ZZCOVID-19 TEST [facility] PCR Today 08/08/2020 9:50 EDT COVID-19 TESTING Routine 08/08/2020 9:50 EDT documented in this encounter Results * COVID-19 TEST [facility] PCR (08/08/2020 9:50 EDT) Swab ENTIRE NASOPHARYNX / Unknown 08/08/2020 9:50 EDT 08/08/2020 17:05 EDT us Provider Outr Resulting Lab MICROBIOLOGY - GENER AL ORDERABLES Final Result [facility] [address] [place] [address] * COVID-19 TESTING (08/08/2020 9:50 EDT) COVID-19 rt-PCR Result Negative Negative 08/09/2020 12:31 EDT [facility] Comment: This test has not [...] clinical observations, patient history, and epidemiological information. This test was developed and its performance characteristics determined by [facility]. It has not been cleared or approved by the US Food and Drug Administration. FDA does not require this test to go through premarket FDA review. This test is used for clinical purposes. It should not be regarded as investigational or for research. This laboratory is certified under the Clinical Laboratory Improvement Amendments (CLIA) as qualified to perform high complexity clinical laboratory testing. This test is based on the [facility] COVID-19 Emergency Use Authorization (EUA) assay, with minor modification as defined by the FDA Performed on the N-Trig Pro RT-PCR System. Performing Lab [facility] 08/09/2020 12:31 EDT [facility] Swab 08/08/2020 9:50 EDT 08/08/2020 17:05 EDT us Provider Outr Resulting Lab MICROBIOLOGY - GENER AL ORDERABLES Final Result [facility] [address] [place] [address] documented in this encounter Visit Diagnoses Not on filedocumented in this encounter Care Teams Patient Access Associate Relationship Specialty Start Date End Date Trell Pittman MD [address] [place] [address] [place] [address] PCP - General 04/10/09 documented as of this encounter
--- OUTSIDE RECORDS SUMMARY | 2024-03-30 21:48 | XMS_ITS | Encounter Summary ---
Author Organization [facility] Address [address] [place] [address] Care Team Providers Care Helicopter Specialist Name Role Phone Trell Pittman MD Primary Care Provider [phone] Reason for Visit * Test (Routine) - Closed Specialty Diagnoses / Procedures Referred By Paula azul Referred To Contact Pediatric Pulmonology Diagnoses Moderate persistent asthma without complication Procedures SPIROMETRY WITH BRONCHODILATOR PA EVAL OF BRONCHOSPASM Lucy Rodgers MD Phone: tel: fax: [facility] Pediatric Pulmonary - [address] [address] Phone: tel: fax: Referral ID Status Reason Start Date Expiration Date Visits Re quested Visits Authorized [id number] Closed 11/14/2018 1 1 Encounter Details Date Type Department Care Team (Late st Contact Info) Description 11/14/2018 9:02 EDT - 11/14/2018 23:59 EDT Hospital Encounter [facility] Pulmonary Function Lab - [address] [address] Unknown, Provider, Lucy Avalos MD [address] [place] [phone] Pft Pedi, Uvc Pft Lab Moderate persistent asthma without complication Discharge Disposition: Auto Discharge Social History Tobacco Use Types Packs/Day Years [...] Mohit Yusuf RN documented in this encounter Discharge Diagnoses Diagnosis J45.40 Moderate persistent asthma, uncomplicated-J45.40[ICD-10-CM] documented in this encounter Medications at Time of Discharge budesonide-formote rol HFA (SYMBICORT) 160-4.5 mcg/actuation HFA aerosol inhaler inhalerIndications :Moderate persistent asthma without complication Inhale 2 Puffs as directed daily. 1 Inhaler 3 01/28/2017 9 inhalational spacing device (AEROCHAMBER)Indic ations:Moderate persistent asthma without complication Inhale 1 Device as directed daily. Spacer for MDI 1 Device 3 01/28/2017 1 levalbuterol (XOPENEX HFA) 45 mcg/actuation inhaler Inhale 2 Puffs as directed every 4 hours as needed. 1 Inhaler 6 08/08/2012 9 documented as of this encounter Discharge Disposition Disposition Code Departure Means Destination Auto Discharge Home documented in this encounter Progress Notes * Enoc Alarcon RT - 11/14/2018 0948 EDT Testing was performed and recorded in [facility]. See complete report in scanned documents. documented in this encounter Plan of Treatment Upcoming Encounters Date Type Department Care Team (Late st Contact Info) Description 04/24/2024 15:30 EST Telemedicine [facility] [place] [address] Lucy Rodgers MD [address] [place] [phone] documented as of this encounter Procedures Procedure Name Priority Date/Time Associated Diagnosis Comments PULMONARY FUNCTION REPORT - SCANNED 12/03/2018 22:44 EDT PULMONARY FUNCTION REPORT - SCANNED 11/14/2018 9:43 EDT documented in this encounter Results * PULMONARY FUNCTION REPORT - SCANNED (12/03/2018 22:44 EDT) 12/03/2018 22:4 4 EDT us Scan 2 Data Entry Coordinator PROCEDURE/MINOR SURGICAL OR DERABLES Final Result * PULMONARY FUNCTION REPORT - SCANNED (11/14/2018 9:43 EDT) 11/14/2018 9:43 EDT us Scan 2 Data Entry Coordinator PROCEDURE/MINOR SURGICAL OR DERABLES Final Result documented in this encounter Visit Diagnoses Diagnosis Moderate persistent asthma without complication Unspecified asthma documented in this encounter Administered Medications Inactive Administered Medications - up to 3 most recent administrations Medication Order MAR Action Action Date Dose Rate Site albuterol inhaler 2 Puff 2 Puff, inhalation, Once (Without Time Specified), 1 dose, Starting on Wed11/14/18 at 1015, Until Wed11/14/18 at 0927, Routine Given 11/14/2018 9:27 EDT 2 Puffs documented in this encounter Orders Medications Ordered That Janes ht Not Have Been Administered Count Last Ordered Date First Ordered Date albuterol inhaler 2 Puff 1 11/14/2018 documented in this encounter Care Teams Helicopter Specialist Relationship Specialty Start Date End Date Trell Pittman MD [address] [place], [place] [address] [address] PCP - General 04/10/09 documented as of this encounter
--- OUTSIDE RECORDS SUMMARY | 2024-03-30 21:48 | XMS_ITS | Encounter Summary ---
Author Organization [facility] Address [address] [place] [address] Care Team Providers Care Deck Molder Name Role Phone Trell Pittman MD Primary Care Provider [phone] Reason for Visit * Reason Onset Date Comments Advice Only 10/20/2016 received test ki t via fedex Encounter Details Date Type Department Care Team (Late st Contact Info) Description 10/20/2016 Telephone [facility] Pediatric Specialty Center - [facility] [address] [place] [address] Jason Mohan MD [address] [place] [phone] Advice Only (received test kit via fedex) Social History Tobacco Use Types Packs/Day Years [...] Telephone Encounter - Vaishali García RN - 10/21/2016 1155 EDT LM for mom to call the lab as they are going to send out a nurse to draw the labs on the girls. I imagine they have tried to contact mom. Asked her to CB to discuss further. * Telephone Encounter - Arin Avila - 10/20/2016 1657 EDT Rosario's mother called to let yulisa pedro nurse know she received a test kit in the mail, not sure what to do with it. documented in this encounter Plan of Treatment Upcoming Encounters Date Type Department Care Team (Late st Contact Info) Description 04/24/2024 15:30 EST Telemedicine [facility] Pediatric Pulmonary - [address] [phone] Lucy Rodgers MD [address] [place] [phone] documented as of this encounter Visit Diagnoses Not on filedocumented in this encounter Care Teams Deck Molder Relationship Specialty Start Date End Date Trell Pittman MD [address] [place] [address] PCP - General 04/10/09 documented as of this encounter
--- OUTSIDE RECORDS SUMMARY | 2024-03-30 21:48 | XMS_ITS | Encounter Summary ---
Author Organization [facility] Address [address] [place] [address] Care Team Providers Care Partnership Development Manager Name Role Phone Trell Pittman MD Primary Care Provider [phone] Reason for Visit * Reason Onset Date Comments Medication Management 02/08/2019 requesting antibiotics Follow-up 02/08/2019 Encounter Details Date Type Department Care Team (Late st Contact Info) Description 02/08/2019 Telephone [facility] Pediatric Pulmonary - [facility] [address] [place] [address] Lucy Rodgers MD [address] [place] [phone] Medication Management (requesting antibiotics); Follow-up Social History Tobacco Use Types Packs/Day [...] Refills Last Filled Start Date End Date amoxicillin-clavula cathi (AUGMENTIN) 875-125 mg per tablet Take 1 Tab by mouth 2 times daily for 14 days. 28 Tab 02/08/2019 02/22/2019 documented in this encounter Miscellaneous Notes * Telephone Encounter - Alee Regan - 02/08/2019 1033 EDT Called mom. Made aware Augmentin has been sent to Pharmacy and to follow up with PCP if not improving. * Telephone Encounter - Brittany Byrd, RN - 02/08/2019 0935 EDT Augmentin 875mg BID x14 days per TIM, sent script. * Telephone Encounter - Arin Avila - 02/08/2019 0843 EDT Rosario's mother discusses having antibiotics at visit with Dr. Lucy Rodgers at last visit on 02/06 .SHe uses [facility] [place] [address] - [address] [place] [phone] parent is asking a call back to let her know documented in this encounter Plan of Treatment Upcoming Encounters Date Type Department Care Team (Late st Contact Info) Description 04/24/2024 15:30 EST Telemedicine [facility] Pediatric Pulmonary - [facility] [address] [place] [address] Lucy Rodgers MD [address] [place] [phone] documented as of this encounter Visit Diagnoses Not on filedocumented in this encounter Care Teams Partnership Development Manager Relationship Specialty Start Date End Date Trell Pittman MD [address] [place] [address] PCP - General 04/10/09 documented as of this encounter
--- OUTSIDE RECORDS SUMMARY | 2024-03-30 21:48 | XMS_ITS | Encounter Summary ---
Author Organization [facility] Address [address] [place] [address] Care Team Providers Care Keyboard Operator Name Role Phone Trell Pittman MD Primary Care Provider +1 -[phone] Reason for Visit * Reason Onset Date Comments Appointment Related 12/28/2016 Encounter Details Date Type Department Care Team (Late st Contact Info) Description 12/28/2016 Telephone [facility] Pediatric Pulmonary - [facility] [address] [place] [address] Jason Mohan MD [address] [place] [address] Appointment Related Social History Tobacco [...] * Telephone Encounter - Alee Joyce - 12/28/2016 1306 EDT Called spoke with mom. Scheduled appts for 01/28. * Telephone Encounter - Taylor Flores - 12/28/2016 1245 EDT Mom calling to schedule apt for Rosario and for Navaeh ( [birth year]) documented in this encounter Plan of Treatment Upcoming Encounters Date Type Department Care Team (Late st Contact Info) Description 04/24/2024 15:30 EST Telemedicine [facility] Pediatric Pulmonary - [address] [phone] Lucy Rodgers MD [address] [place] [phone] documented as of this encounter Visit Diagnoses Not on filedocumented in this encounter Care Teams Keyboard Operator Relationship Specialty Start Date End Date Trell Pittman MD [address] [place] [address] PCP - General 04/10/09 documented as of this encounter
--- OUTSIDE RECORDS SUMMARY | 2024-03-30 21:48 | XMS_ITS | Encounter Summary ---
Author Organization [facility] Address [address] [place] [address] Care Team Providers Care Owner Oral Surgeon Name Role Phone Trell Pittman MD Primary Care Provider +1 -[phone] Encounter Details Date Type Department Care Team (Late st Contact Info) Description 06/13/2019 Orders Only [address] [address] Kaylah Almanzar RN Uncomplicated asthma, unspecified asthma [...] Mohit Tinajero RN documented in this encounter Plan of Treatment Upcoming Encounters Date Type Department Care Team (Late st Contact Info) Description 04/24/2024 15:30 EST Telemedicine [address] [address] Lucy Rodgers MD [address] [place] [phone] documented as of this encounter Visit Diagnoses Diagnosis Uncomplicated asthma, unspecified asthma severity, unspecified whether persistent- Primary documented in this encounter Care Teams Owner Oral Surgeon Relationship Specialty Start Date End Date Trell Pittman MD [address] [place] [address] PCP - General 04/10/09 documented as of this encounter
--- OUTSIDE RECORDS SUMMARY | 2024-03-30 21:48 | XMS_ITS | Encounter Summary ---
Author Organization [facility] Address [address] [place] [address] Care Team Providers Care Software Validation Engineer Name Role Phone Trell Pittman MD Primary Care Provider +1 [phone] Reason for Visit * Reason Onset Date Comments Other 10/14/2016 Encounter Details Date Type Department Care Team (Late st Contact Info) Description 10/14/2016 Telephone [facility] Pediatric Hematology & Oncology - [facility] [address] [place], [place] [phone] James Franklin MD [address] [place] [address] Other Social History Tobacco Use [...] * Telephone Encounter - Pj Lobato - 10/16/2016 1459 EDT I have filled out the paper work and faxed it for review * Telephone Encounter - Vaishali García RN - 10/15/2016 1002 EDT She has had a sweat test which was negative. 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 * Telephone Encounter - Celena Hankins - 10/14/2016 1526 EDT Maggie states they have an order, but no sample and is questioning if there would be one sent. documented in this encounter Plan of Treatment Upcoming Encounters Date Type Department Care Team (Late st Contact Info) Description 04/24/2024 15:30 EST Telemedicine [facility] Pediatric Pulmonary - [facility] [address] [place], [place] [address] Lucy Rodgers MD [address] [place] [address] documented as of this encounter Visit Diagnoses Not on filedocumented in this encounter Care Teams Software Validation Engineer Relationship Specialty Start Date End Date Trell Pittman MD [place] [address] PCP - General 04/10/09 documented as of this encounter
--- OUTSIDE RECORDS SUMMARY | 2024-03-30 21:48 | XMS_ITS | Encounter Summary ---
Author Organization [facility] Address [address] [place] [address] Care Team Providers Care Marine Structural Welder Name Role Phone Trell Pittman MD Primary Care Provider [phone] [phone] Reason for Visit * Reason Onset Date Comments Other 06/12/2016 Encounter Details Date Type Department Care Team (Late st Contact Info) Description 06/12/2016 Telephone [facility] Pediatric Hematology & Oncology - [facility] [address] [place] [address] Jason Mohan MD [address] [place] [address] Other Social History Tobacco Use [...] Telephone Encounter - Brittany Byrd RN - 06/12/2016 1619 EST LM for mom to call back to schedule a f/u appointment as Dr. Mohan will discuss genetics at thattime. * Telephone Encounter - Celena Hankins - 06/12/2016 1307 EST Questioning genetic testing and emotional support Dog. documented in this encounter Plan of Treatment Upcoming Encounters Date Type Department Care Team (Late st Contact Info) Description 04/24/2024 15:30 EST Telemedicine [facility] Pediatric Pulmonary - [facility] [address] [place], [place] [phone] Lucy Rodgers MD [address] [place] [phone] documented as of this encounter Visit Diagnoses Not on filedocumented in this encounter Care Teams Marine Structural Welder Relationship Specialty Start Date End Date Trell Pittman MD [address] [place] [address] PCP - General 04/10/09 documented as of this encounter
--- OUTSIDE RECORDS SUMMARY | 2024-03-30 21:48 | XMS_ITS | Encounter Summary ---
Author Organization [facility] Address [address] [place] [address] Care Team Providers Care Hotel Housekeeper Name Role Phone Trell Pittman MD Primary Care Provider +1 [phone] Reason for Visit * Reason Onset Date Comments Letter for School/Work 08/13/2016 Encounter Details Date Type Department Care Team (Late st Contact Info) Description 08/13/2016 Telephone [facility] Pediatric Pulmonary - [facility] [address] [place] [address] Rashmi Tabares, MILLWRIGHT [address] [place] [phone] Letter for School/Work Social History Tobacco Use Types Packs/Day Years [...] Refills Last Filled Start Date End Date EPINEPHrine (EPIPEN) 0.3 mg/0.3 mL injection Inject 0.3 mL into the muscle once as needed for up to 1 dose for Other (insect venum bites). 2 Syringe 08/25/2016 08/25/2016 documented in this encounter Miscellaneous Notes * Telephone Encounter - Lucy Neil, RN - 08/25/2016 1515 EDT Spoke with mom, has not been seen by Dr. 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 Not allowed back at school until an epi-pen is called in with temps getting higher. Mom isgoing to be scheduling appt with Dr. Lyon but needs this today. Found documentation from OV 05/29/[address] lyon and information is on the visit. Advised mom we can send it for 1 epi pen pack and to set up an OV with Dr. Lyon or talk with PCP if needing any further refills. * Telephone Encounter - Lucy Neil, RN - 08/25/2016 1348 EDT AAP completed and faxed. Msg left for mom to call our office. * Telephone Encounter - Celena Hankins - 08/25/2016 1332 EDT Mom calling to check in on the Asthma Action Plan and the epi pen refill. She states neither has been done. * Telephone Encounter - Myrna Garza - 08/13/2016 1407 EDT Rosario's mom stopped in today, as they were in for other reasons, and is need of an Asthma Action Plan for school, and also is in need of a refill of the Epi Pen. Please call that into [facility] in [place], and please fax in the Asthma action plan to [facility] at [phone]- attn. Satinder Roldan. We scheduled appts for Rosario and her sister to come in and see Rashmi, for September 11. Mom did mention that at last visit there was talk of getting genetic testing and she never heard back about that, but feels she needs a follow up and needed her paperwork for school. Please give her a call at [phone] documented in this encounter Plan of Treatment Upcoming Encounters Date Type Department Care Team (Late st Contact Info) Description 04/24/2024 15:30 EST Telemedicine [facility] Pediatric Pulmonary - [address] [phone] Lucy Rodgers MD [address] [place] [phone] documented as of this encounter Visit Diagnoses Not on filedocumented in this encounter Care Teams Hotel Housekeeper Relationship Specialty Start Date End Date Trell Pittman MD [address] [place] [address] PCP - General 04/10/09 documented as of this encounter
--- OUTSIDE RECORDS SUMMARY | 2024-03-30 21:48 | XMS_ITS | Encounter Summary ---
Author Organization [facility] Address [address] [place] [address] Care Team Providers Care Bobbin Hauler Name Role Phone Trell Pittman MD Primary Care Provider [phone] [phone] Reason for Visit * Reason Onset Date Comments Appointment Related 07/14/2019 Appointment Related 07/17/2019 Encounter Details Date Type Department Care Team (Late st Contact Info) Description 07/14/[address] [facility] Pediatric Pulmonary - [facility] [address] [place] [address] Lucy Rodgers MD [address] [place] [address] Appointment Related; Appointment Related Social History Tobacco Use Types [...] * Telephone Encounter - Alee Regan - 07/17/2019 1412 EST Called spoke with mom. Scheduled visits for 09/14. * Telephone Encounter - Myrna Garza - 07/14/2019 0931 EST Kirby's mom, Lucy, called today to reschedule the appts they had to cancel with , as mom was sick. Please give mom a call at [phone] Sibling Della's is 4.16.(same last name) documented in this encounter Plan of Treatment Upcoming Encounters Date Type Department Care Team (Late st Contact Info) Description 04/24/2024 15:[address] [facility] Pediatric Pulmonary - [address] [phone] Lucy Rodgers MD [address] [place] [phone] documented as of this encounter Visit Diagnoses Not on filedocumented in this encounter Care Teams Bobbin Hauler Relationship Specialty Start Date End Date Trell Pittman MD [address] [place] [address] PCP - General 04/10/09 documented as of this encounter
--- OUTSIDE RECORDS SUMMARY | 2024-03-30 21:48 | XMS_ITS | Encounter Summary ---
Author Organization [facility] Address [address] [place] [address] Care Team Providers Care Endocrinology Nurse Name Role Phone Trell Pittman MD Primary Care Provider +1 [phone] Reason for Referral * Test (Routine) - Closed Specialty Diagnoses / Procedures Referred By Paula azul Referred To Contact Pediatric Pulmonology Diagnoses Mild persistent asthma without complication Procedures SPIROMETRY WITH BRONCHODILATOR [place] EVAL OF BRONCHOSPASM Jason Mohan MD Phone: tel: fax: [facility] [address] [address] Phone: tel: fax: Referral ID Status Reason Start Date Expiration Date Visits Re quested Visits Authorized [id number] Closed 01/28/2017 1 1 Reason for Visit * Reason Onset Date Comments Pre-visit Orders 01/26/2017 Encounter Details Date Type Department Care Team (Late st Contact Info) Description 01/26/2017 Orders Only [facility] [address] [phone] Yanira Allison RN Mild persistent asthma without complication (Primary Dx) Social [...] [facility] [place] [address] [place], [place] [phone] Lucy Rodgers MD [address] [place] [phone] documented as of this encounter Visit Diagnoses Diagnosis Mild persistent asthma without complication- Primary Unspecified asthma documented in this encounter Orders PFT Count Last Ordered Date First Orde red Date SPIROMETRY WITH BRONCHODILATOR 1 01/26/2017 documented in this encounter Care Teams Endocrinology Nurse Relationship Specialty Start Date End Date Trell Pittman MD [address] [place] [address] PCP - General 04/10/09 documented as of this encounter
--- OUTSIDE RECORDS SUMMARY | 2024-03-30 21:48 | XMS_ITS | Encounter Summary ---
Author Organization [facility] Address [address] [place] [address] Care Team Providers Care Business Process Lead Name Role Phone Trell Pittman MD Primary Care Provider +1 -[phone] Encounter Details Date Type Department Care Team (Late st Contact Info) Description 02/06/2019 8:42 EDT - 02/06/2019 23:59 EDT Hospital Encounter [facility] Pulmonary Function Lab - [facility] [address] [place] [address] Unknown, Provider, MD Rodgers, Lucy Rajan MD [address] [place] [address] Pft Pedi, [facility] Moderate persistent asthma without complication [...] Puffs as directed daily. 1 Inhaler 5 02/06/2019 0 fluticasone propionate (FLONASE) 50 mcg/actuation nasal spray Instill 1 [place] into both nostrils daily. 1 Bottle 5 02/06/2019 0 inhalational spacing device (AEROCHAMBER)Indic ations:Moderate persistent asthma without complication Inhale 1 Device as directed daily. Spacer for MDI 1 Device 3 01/28/2017 1 levalbuterol (XOPENEX HFA) 45 mcg/actuation inhaler Inhale 2 Puffs as directed every 4 hours as needed (cough). 1 Inhaler 6 11/28/2018 0 PROAIR HFA 90 mcg/actuation inhaler Inhale 2-4 Puffs as directed every 4 hours as needed for Wheezing (cough, short of breath). 2 Inhaler 2 02/06/2019 1 documented as of this encounter Discharge Disposition Disposition Code Departure Means Destination Auto Discharge Home documented in this encounter Progress Notes * Cici Powell RT - 02/06/2019 0923 EDT Testing was performed and recorded in [employer]. See complete report in scanned documents. documented in this encounter Plan of Treatment Upcoming Encounters Date Type Department Care Team (Late st Contact Info) Description 04/24/2024 15:30 EST Telemedicine [facility] Pediatric Pulmonary - [facility] [address] [place], [place] [phone] Lucy Rodgers MD [address] [place] [phone] documented as of this encounter Procedures Procedure Name Priority Date/Time Associated Diagnosis Comments PULMONARY FUNCTION REPORT - SCANNED 02/06/2019 16:23 EDT PULMONARY FUNCTION REPORT - SCANNED 02/06/2019 9:23 EDT PULMONARY FUNCTION REPORT - SCANNED 02/06/2019 9:12 EDT documented in this encounter Results * PULMONARY FUNCTION REPORT - SCANNED (02/06/2019 16:23 EDT) 02/06/2019 16:2 3 EDT us Scan 2 Hotel Services Sales Representative PROCEDURE/MINOR SURGICAL OR DERABLES Final Result * PULMONARY FUNCTION REPORT - SCANNED (02/06/2019 9:23 EDT) 02/06/2019 9:23 EDT us Scan 2 Hotel Services Sales Representative PROCEDURE/MINOR SURGICAL OR DERABLES Final Result * PULMONARY FUNCTION REPORT - SCANNED (02/06/2019 9:12 EDT) 02/06/2019 9:12 EDT us Scan 2 Hotel Services Sales Representative PROCEDURE/MINOR SURGICAL OR DERABLES Final Result documented in this encounter Visit Diagnoses Diagnosis Moderate persistent asthma without complication Unspecified asthma documented in this encounter Administered Medications Inactive Administered Medications - up to 3 most recent administrations Medication Order MAR Action Action Date Dose Rate Site albuterol inhaler 2 Puff 2 Puff, inhalation, Once (Without Time Specified), 1 dose, Starting on Wed02/06/19 at 0945, Until Wed02/06/19 at 0855, Routine Given 02/06/2019 8:55 EDT 2 Puffs documented in this encounter Orders Medications Ordered That Janes ht Not Have Been Administered Count Last Ordered Date First Ordered Date albuterol inhaler 2 Puff 1 02/06/2019 documented in this encounter Care Teams Business Process Lead Relationship Specialty Start Date End Date Trell Pittman MD [address] [place] [address] PCP - General 04/10/09 documented as of this encounter
--- OUTSIDE RECORDS SUMMARY | 2024-03-30 21:48 | XMS_ITS | Encounter Summary ---
Author Organization [facility] Address [address] [place] [address] Care Team Providers Care Seo Marketing Specialist Name Role Phone Trell Pittman MD Primary Care Provider +1 -[phone] Encounter Details Date Type Department Care Team (Late st Contact Info) Description 01/28/2017 8:58 EDT - 01/28/2017 23:59 EDT Hospital Encounter [facility] Pulmonary Function Lab - [facility] [address] [place], [place] [phone] Jason Mohan MD [address] [place] [address] Mild persistent asthma without complication Discharge Disposition: Auto [...] documented in this encounter Discharge Diagnoses Diagnosis J45.30 Mild persistent asthma, uncomplicated-J45.30[ICD-10-CM] documented in this encounter Medications at Time of Discharge albuterol (PROAIR HFA) 90 mcg/actuation inhalerIndication s:Moderate persistent asthma without complication Inhale 2-4 Puffs as directed every 4 hours as needed for Wheezing (cough, short of breath). 1 Inhaler 3 01/28/2017 8 budesonide-formot vini HFA (SYMBICORT) 160-4.5 mcg/actuation HFA aerosol inhaler inhalerIndication s:Moderate persistent asthma without complication Inhale 2 Puffs as directed daily. 1 Inhaler 3 01/28/2017 9 cetirizine (ZYRTEC) 10 mg tablet Take 1 Tab by mouth daily as needed for Allergies. 30 Tab 5 01/28/2017 9 inhalational spacing device (AEROCHAMBER)Radha cations:Moderate persistent asthma without complication Inhale 1 Device as directed daily. Spacer for MDI 1 Device 3 01/28/2017 1 levalbuterol (XOPENEX HFA) 45 mcg/actuation inhaler Inhale 2 Puffs as directed every 4 hours as needed. 1 Inhaler 6 08/08/2012 9 montelukast (SINGULAIR) 5 mg chewable tablet Take 1 Tab by mouth every evening. 90 Tab 6 01/28/2017 9 sodium chloride 7 % solution for nebulization Take 4 mL by nebulization 2 times daily 60 Ampule 5 03/22/2015 9 documented as of this encounter Discharge Disposition Disposition Code Departure Means Destination Auto Discharge Home documented in this encounter Progress Notes * Tiffanie Cook RT - 01/28/2017 0910 EDT Testing was performed and recorded in [employer]. See complete report in scanned documents. documented in this encounter Plan of Treatment Upcoming Encounters Date Type Department Care Team (Late st Contact Info) Description 04/24/2024 15:30 EST Telemedicine [facility] [place] [address] Lucy Rodgers MD [address] [place] [phone] documented as of this encounter Procedures Procedure Name Priority Date/Time Associated Diagnosis Comments PULMONARY FUNCTION REPORT - SCANNED 01/28/2017 9:27 EDT documented in this encounter Results * PULMONARY FUNCTION REPORT - SCANNED (01/28/2017 9:27 EDT) 01/28/2017 9:27 EDT us Scan 2 Tilting Saw Operator PROCEDURE/MINOR SURGICAL OR DERABLES Final Result documented in this encounter Visit Diagnoses Diagnosis Mild persistent asthma without complication Unspecified asthma documented in this encounter Administered Medications Inactive Administered Medications - up to 3 most recent administrations Medication Order MAR Action Action Date Dose Rate Site albuterol inhaler 2 Puff 2 Puff, inhalation, Once (Without Time Specified), 1 dose, Starting on [place] 01/28/17 at 0930, Until [place] 01/28/17 at 0907, Routine Given 01/28/2017 9:07 EDT 2 Puffs documented in this encounter Orders Medications Ordered That Janes ht Not Have Been Administered Count Last Ordered Date First Ordered Date albuterol inhaler 2 Puff 1 01/28/2017 documented in this encounter Care Teams Seo Marketing Specialist Relationship Specialty Start Date End Date Trell Pittman MD [address] [place] [address] PCP - General 04/10/09 documented as of this encounter
--- OUTSIDE RECORDS SUMMARY | 2024-03-30 21:48 | XMS_ITS | Encounter Summary ---
Author Organization [facility] Address [address] [place] [address] Care Team Providers Care Educational Technologist Name Role Phone Trell Pittman MD Primary Care Provider +1 -[phone] Reason for Referral * Test (Routine) - Closed Specialty Diagnoses / Procedures [facility] Referred To Contact Pediatric Pulmonology Diagnoses Moderate persistent asthma without complication Procedures SPIROMETRY WITH BRONCHODILATOR [place] EVAL OF BRONCHOSPASM Lucy Rodgers MD Phone: tel: fax: [address] [address] Phone: tel: fax: Referral ID Status Reason Start Date Expiration Date Visits Re quested Visits Authorized [id number] Closed 11/14/2018 1 1 Reason for Visit * Reason Onset Date Comments Pre-visit Orders 11/08/2018 Encounter Details Date Type Department Care Team (Late st Contact Info) Description 11/08/2018 Orders Only [address] [phone] Lucy Brown, RN Moderate persistent asthma without complication (Primary Dx) [...] Contact Info) Description 04/24/2024 15:30 EST Telemedicine [facility] Pediatric [facility]monary - [facility] [place] [address] [place], [place] [address] Lucy Rodgers MD [address] [place] [phone] documented as of this encounter Visit Diagnoses Diagnosis Moderate persistent asthma without complication- Primary Unspecified asthma documented in this encounter Orders PFT Count Last Ordered Date First Orde red Date SPIROMETRY WITH BRONCHODILATOR 1 11/08/2018 documented in this encounter Care Teams Educational Technologist Relationship Specialty Start Date End Date Trell Pittman MD [address] [place] [address] [place] [address] PCP - General 04/10/09 documented as of this encounter
--- OUTSIDE RECORDS SUMMARY | 2024-03-30 21:48 | XMS_ITS | Encounter Summary ---
Author Organization [facility] Address [address] [place] [address] Care Team Providers Care Coating Machine Feeder Name Role Phone Trell Pittman MD Primary Care Provider +1 [phone] Reason for Visit * Reason Onset Date Comments Advice Only 03/13/2021 Encounter Details Date Type Department Care Team (Late st Contact Info) Description 03/13/2021 Telephone [facility] Pediatric Pulmonary - [facility] [address] [place] [address] Lucy Rodgers MD [address] [place] [address] Advice Only Social History Tobacco [...] Telephone Encounter - Brittany Byrd RN - 03/13/2021 1353 EDT Called Lucy back, The Vest by [employer] is what they have, it didn't come from [facility]. I told her to [facility] customer service and they will send the next size up vest and shouldn't have a charge. SHe said she's on two abx and prednisone and curious what we suggest they do. I said we haven't seenher in over a year and half so can't really suggest any medical advice as we haven't seen her in a while. Told her she can either have primary consult Dr Rodgers on current situation. OR she can schedule a sooner appt in person OR a televideo sooner than the currently scheduled April visit. SHe said shewill think about it and call our office to reschedule a sooner appt if she decides to * Telephone Encounter - Alee Regan - 03/13/2021 1341 EDT Mom calling. Ponce has ear infection/sinus infection/pnemonia. Per mom vest doesn't fit, she did call [facility] and another vest will cost $10,000. Mom would like call back to discuss. documented in this encounter Plan of Treatment Upcoming Encounters Date Type Department Care Team (Late st Contact Info) Description 04/24/2024 15:30 EST Telemedicine [facility] Pediatric Pulmonary - [address] [address] Lucy Rodgers MD [address] [place] [phone] documented as of this encounter Visit Diagnoses Not on filedocumented in this encounter Care Teams Coating Machine Feeder Relationship Specialty Start Date End Date Trell Pittman MD [address] [place], [place] [address] [address] PCP - General 04/10/09 documented as of this encounter
--- OUTSIDE RECORDS SUMMARY | 2024-03-30 21:48 | XMS_ITS | Encounter Summary ---
Author Organization [facility] Address [address] [place] [address] Care Team Providers Care Food And Beverage Analyst Name Role Phone Trell Pittman MD Primary Care Provider [phone] Reason for Referral * Test (Routine/Next Available) - Authorization Not Required Specialty Diagnoses / Procedures [facility] Referred To Contact Diagnoses Uncomplicated asthma, unspecified asthma severity, unspecified whether persistent Procedures PULMONARY FUNCTION TESTING Lucy Rodgers MD Phone: tel: fax: Referral ID Status Reason Start Date Expiration Date Visits Requested Visits Authorized [id number] Authorization Not Required 1 1 1 Reason for Visit * Reason Onset Date Comments Pre-procedure 04/15/2021 Encounter Details Date Type Department Care Team (Latest Contact Info) Description 04/15/2021 Prep for Procedure [facility] Pediatric Pulmonary - Main [place] [address], [place] [id number] Kaylah Almanzar RN Uncomplicated asthma, unspecified asthma [...] Mohit Yusuf RN documented in this encounter H&P Notes * Kaylah Almanzar RN - 04/15/2021 0916 EST PFT documented in this encounter Plan of Treatment Upcoming Encounters Date Type Department Care Team (Late st Contact Info) Description 04/24/2024 15:30 EST Telemedicine [facility] Pediatric Pulmonary - [address] [id number] Lucy Rodgers MD [address] [place] [address] [phone] documented as of this encounter Results * PULMONARY FUNCTION TESTING (04/28/2021 10:16 EST) 04/28/2021 10:1 6 EST us Lucy Rodgers MD PFT ORDERABLES Final Result [facility] PFT documented in this encounter Visit Diagnoses Diagnosis Uncomplicated asthma, unspecified asthma severity, unspecified whether persistent- Primary documented in this encounter Care Teams Food And Beverage Analyst Relationship Specialty Start Date End Date Trell Pittman MD [address] [place] [address] [place] [address] PCP - General 04/10/09 documented as of this encounter
--- OUTSIDE RECORDS SUMMARY | 2024-03-30 21:48 | XMS_ITS | Encounter Summary ---
Author Organization [facility] Address [address] [place] [address] Care Team Providers Care Infection Control Coordinator Name Role Phone Trell Pittman MD Primary Care Provider [phone] Reason for Visit * Reason Onset Date Comments Update 02/16/2019 Encounter Details Date Type Department Care Team (Late st Contact Info) Description 02/16/2019 Telephone [facility] Pediatric Pulmonary - [facility] [address] [place] [address] Victor Manuel Rodgers MD [address] [place] [phone] Update Social History Tobacco Use [...] Telephone Encounter - Vaishali García RN - 02/17/2019 0929 EDT Called mom, she will take her to the pcp and she is fine with that. Told her to have the pcp call us with any ?'s. * Telephone Encounter - Victor Manuel Rodgers MD - 02/16/2019 1927 EDT I would have her see PCP since she was doing better and now worse, question is whether she needs steroid, chest imaging, or something else; get a better idea of whether it is related to lung or sinuses. I think someone needs to do an exam. Agree they live too far to need to come all the way here. * Telephone Encounter - Vaishali García RN - 02/16/2019 1620 EDT Doing all her meds, using vest not getting better. Took the augmentin from victor manuel started 5 days ago, and was going great than now cough came back worse and is wondering if she needs the seroids as was mentioned in the last visit. Mom said that she has been compliant with all her meds since they last came and is doing her vest daily and using the spacer. Told mom to increase the vest to at least BID, increase the albuterol to 4 puffs qid to help with her cough. She went to practice today but coughed the entire time. Told her that I would discuss with dr. Rodgers and let he know. Mom is hoping to not have to be seen as they live far away. * Telephone Encounter - Alee Regan - 02/16/2019 1548 EDT Mom calling. States Rosario's cold did start getting better with antibiotics. Per mom it's now backagain, wondering if she should start a steroid. documented in this encounter Plan of Treatment Upcoming Encounters Date Type Department Care Team (Late st Contact Info) Description 04/24/2024 15:30 EST Telemedicine [facility] Pediatric Pulmonary - Main [address] [id number] Victor Manuel Rodgers MD [address] [place] [phone] documented as of this encounter Visit Diagnoses Not on filedocumented in this encounter Care Teams Infection Control Coordinator Relationship Specialty Start Date End Date Trell Pittman MD [address] [place] [address] PCP - General 04/10/09 documented as of this encounter
--- OUTSIDE RECORDS SUMMARY | 2024-03-30 21:48 | XMS_ITS | Encounter Summary ---
Author Organization [facility] Address [address] [place] [address] Care Team Providers Care Accounts Receivable Bookkeeper Name Role Phone Trell Pittman MD Primary Care Provider [phone] Reason for Visit * Reason Onset Date Comments Medication Problem 09/06/2019 Encounter Details Date Type Department Care Team (Late st Contact Info) Description 09/06/2019 Telephone [facility] Pediatric Pulmonary - [facility] [address] [place] [address] Lucy Rodgers MD [address] [place] [address] Medication Problem Social History Tobacco [...] directed 2 times daily. 3 Inhaler 3 09/06/2019 1 documented in this encounter Miscellaneous Notes * Telephone Encounter - Kaylah Morocho RN - 09/06/2019 1015 EDT Refilled medication for brand name only- added note to pharmacy. * Telephone Encounter - Pj Lobato - 09/06/2019 0957 EDT Please change the script budesonide-formoterol HFA (SYMBICORT) 160-4.5 mcg/actuation HFA aerosol inhaler inhaler from generic to Brand Name Symbicort it is covered with no PA required documented in this encounter Plan of Treatment Upcoming Encounters Date Type Department Care Team (Late st Contact Info) Description 04/24/2024 15:30 EST Telemedicine [facility] Pediatric Pulmonary - [facility] [address], [place] [phone] Lucy Rodgers MD [address] [place] [phone] documented as of this encounter Visit Diagnoses Diagnosis Moderate persistent asthma without complication- Primary Unspecified asthma documented in this encounter Discontinued Medications Medication Sig Discontinue Reason Start Date End Da te budesonide-formoterol HFA (SYMBICORT) 160-4.5 mcg/actuation HFA aerosol inhaler inhalerIndications:Moder ate persistent asthma without complication Inhale 2 Puffs as directed 2 times daily. Reorder 09/04/2019 09/06/2019 documented as of this encounter Care Teams Accounts Receivable Bookkeeper Relationship Specialty Start Date End Date Trell Pittman MD [address] [place], [place] [address] [address] PCP - General 04/10/09 documented as of this encounter
--- OUTSIDE RECORDS SUMMARY | 2024-03-30 21:48 | XMS_ITS | Encounter Summary ---
Author Organization [facility] Address [address] [place] [address] Care Team Providers Care Legal Billing Analyst Name Role Phone Trell Pittman MD Primary Care Provider [phone] Reason for Visit * Reason Onset Date Comments Testing 09/04/2016 Encounter Details Date Type Department Care Team (Late st Contact Info) Description 09/04/2016 Orders Only [address] [address] Vaishali García RN Moderate persistent asthma without complication (Primary [...] Contact Info) Description 04/24/2024 15:30 EST Telemedicine [address] [address] Lucy Rodgers MD [address] [place] [phone] documented as of this encounter Visit Diagnoses Diagnosis Moderate persistent asthma without complication- Primary Unspecified asthma documented in this encounter Care Teams Legal Billing Analyst Relationship Specialty Start Date End Date Trell Pittman MD [address] [place] [address] PCP - General 04/10/09 documented as of this encounter
--- OUTSIDE RECORDS SUMMARY | 2024-03-30 21:48 | XMS_ITS | Encounter Summary ---
Author Organization [facility] Address [address] [place] [address] Care Team Providers Care Leather Stretcher Name Role Phone Trell Pittman MD Primary Care Provider [phone] Reason for Visit * Reason Comments Cough Asthma Encounter Details Date Type Department Care Team (Late st Contact Info) Description 01/28/2017 10:15 EDT Office Visit [facility] Pediatric Pulmonary - [address] [place] [address] [place] [address] Rashmi Tabares, CONTACT LENS BLOCKER [address] [place] [phone] Moderate persistent asthma without complication (Primary Dx) [...] Sign Reading Time Taken Comments Blood Pressure 115/55 01/28/2017 0948 EDT Pulse 84 01/28/2017 0948 EDT Temperature - - Respiratory Rate 18 01/28/2017 0948 EDT Oxygen Saturation 99% 01/28/2017 0948 EDT Inhaled Oxygen Concentration - - Weight 47.3 kg (104 lb 4.4 oz) 01/28/2017 0948 E DT Height 160.5 cm (5' 3.19) 01/28/2017 0948 EDT Body Mass Index 18.36 01/28/2017 0948 EDT Body Mass Index Percentile 53.10% 01/28/2017 094 8 EDT Growth Chart: [facility] [place] (Girls, 2- 20 Years) documented in this [...] Filled Start Date End Date montelukast (SINGULAIR) 5 mg chewable tablet Take 1 Tab by mouth every evening. 90 Tab 6 01/28/2017 9 cetirizine (ZYRTEC) 10 mg tablet Take 1 Tab by mouth daily as needed for Allergies. 30 Tab 5 01/28/2017 9 inhalational spacing device (AEROCHAMBER)Indic ations:Moderate persistent asthma without complication Inhale 1 Device as directed daily. Spacer for MDI 1 Device 3 01/28/2017 1 budesonide-formote rol HFA (SYMBICORT) 160-4.5 mcg/actuation HFA aerosol inhaler inhalerIndications :Moderate persistent asthma without complication Inhale 2 Puffs as directed daily. 1 Inhaler 3 01/28/2017 9 albuterol (PROAIR HFA) 90 mcg/actuation inhalerIndications :Moderate persistent asthma without complication Inhale 2-4 Puffs as directed every 4 hours as needed for Wheezing (cough, short of breath). 1 Inhaler 3 01/28/2017 8 documented in this encounter Progress Notes * Rashmi Tabares NP - 01/28/2017 1015 EDT Images from the original note were not included. Pediatric Pulmonology James Franklin M.D., Gene Pearce., Lucy Rodgers M.D, Jason Mohan M.D. [address] [address] Encounter Date: 01/28/[address] Trell [address]man [address] [place], [place] [address] [address] Chief Complaint: Rosario is a 11 y.o. female who is seen in pulmonary clinic for asthma. Rosario is accompanied by her mother, step father who contributed to the history. Subjective: Rosario has been well since the last visit from a pulmonary perspective. They report that since thelast visit in May 2016 she has been doing very well. She has not had any lingering upper respiratory illnesses, and has not required any oral steroids or antibiotics for respiratory illnesses since the last visit. She is off all asthma medication since the spring and parents feel that she has had a great summer without any issue. She has started soccer and admits to exertional symptoms and was planning on restarting the asthma action plan from last fall/winter. Rosario has used her bronchodilator for exercise the past few weeks. They deny any cough during the day or night--but she has a cough at times with exercise. She also reports some chest tightness/shortness of breath with sprinting. She denies any significant allergy or nasal congestion symptoms. She denies any gastroesophageal reflux symptoms at this time. Her parents are pleased with her overall health and feel that she seems to have outgrown all the illnesses that she had as a child--mother did not have any insight intowhy this has improved so much. Of note: both Rosario and her sister (here with her today) have caught a cold the past couple of days. She has had no additional symptoms of apneic episodes, chest pain, chest tightness, chronic cough, cyanotic episodes, difficulty breathing, exercise limitation, increased work of breathing, shortnessof breath, stridor, symptoms with exertion and wheezing over the last 6 month(s). She has not had decrease in energy, fever, chills, night sweats, stridor and wheeze. She has had nocough, observed apnea and obstructed breathing pattern during sleep. Typical triggers: Infections / Colds, Environmental Allergies, Air Pollution, Dust Mites, Exercise,Cigarette Smoke Classification of Asthma Control: Daytime symptoms: Less than or equal to 2 days/week Nighttime awakenings: None Interference with normal activity: Some limitation Short-acting Beta agonist use for symptom control: Less than or equal to 2 days/week Exacerbations requiring oral systemic corticosteroids: 0-1/year ATAQ Score: 2 Medication Use: Rescue/quick relief medicines: ?? Albuterol MDI. Rosario has needed to use this medication only with exercise. Preventive/long-term control: ?? montelukast (SINGULAIR CHEWABLE TABLET) 5mg Proper use of chamber / mask: Yes Medication Compliance: Partially Adherent Gastrointestinal/Nutrition: Appetite is good. Diet: healthy diet in general Gastroesophageal reflux symptoms are absent . Other abdominal complaints include previous history of constipation--no issues in at least 2+ years per mother. Otolaryngology: Rosario has had recent URI symptoms. General Health: Overall behavior and activity has been normal. Exercise: very active Rosario has missed 0 days of school, physical education class and athletic activities due to illness. Environmental History: There have been no changes [...] History: Procedure Laterality Date ??? ADENOIDECTOMY ??? [place] BRNCHSC W/BRNCL ALVEOLAR LAVAGE 02/11/2010 ??? [place] BRNCHSC W/BRNCL ALVEOLAR LAVAGE 02/04/2011 ??? [place] CREATE EARDRUM OPENING,GEN ANESTH ??? PYLOROMYOTOMY 3 [...] Cholesterol Maternal Grandmother ??? Asthma Sister Outpatient Prescriptions Marked as Taking for the 01/28/17 encounter (Office Visit) with Rashmi Tabares NP Medication Sig Dispense Refill ??? albuterol (PROAIR HFA) 90 mcg/actuation inhaler Inhale 2-4 Puffs as directed every 4 hours as needed for Wheezing (cough, short of breath). 1 Inhaler 3 ??? [DISCONTINUED] albuterol (PROAIR HFA) 90 mcg/actuation inhaler Inhale 2-4 Puffs as directed every 4 hours as needed for Wheezing (cough, short of breath) 1 Inhaler 3 ??? cetirizine (ZYRTEC) 10 mg tablet Take 1 Tab by mouth daily as needed for Allergies. 30 Tab 5 ??? [DISCONTINUED] cetirizine (ZYRTEC) 10 mg tablet Take 1 Tab by mouth daily as needed for Allergies. 30 Tab 5 ??? inhalational spacing device (AEROCHAMBER) Inhale 1 Device as directed daily. Spacer for MDI 1 Device 3 ??? [DISCONTINUED] inhalational spacing device (AEROCHAMBER) Inhale 1 Device as directed daily. Spacer for MDI 1 Device 3 ??? montelukast (SINGULAIR) 5 mg chewable tablet Take 1 Tab by mouth every evening. 90 Tab 6 ??? [DISCONTINUED] montelukast (SINGULAIR) 5 mg chewable tablet Take 1 Tab by mouth every evening 90 Tab 6 Allergies Allergen Reactions ??? Adhesive Tape Other (See Comments) blisters [...] portion of this note. Objective Data BP 115/55 Pulse 84 Resp 18 Ht 160.5 cm (63.19) Wt 47.3 kg (104 lb 4.4 oz) SpO2 99% BMI18.36 kg/m2 General Appearance: well appearing, alert, no acute distress, cooperative Head: normocephalic, atraumatic Eye: no injection, no discharge Ear: unable to fully visualize due to increased cerumen bilaterally Nose: dried mucus, mucosal erythema, mucosal edema Mouth\Throat: moist mucosa, oropharynx without exudate, erythema [...] PFT's PFTS (Before Albuterol Treatment) FVC (L): 3.09 liters FVC % Pred: 106 FEV1 (L): 2.77 liters FEV 1 % Pred: 106 FEF 25-75% (L/scc): 3.54 FEF 25-75% Pred: 110 PFTS (After Albuterol Treatment) FVC (L) (After Albuterol): 3.22 liters FVC % Pred (After Albuterol): 110 FEV1 (L) (After Albuterol): 2.95 liters FEV 1 % Pred (After Albuterol): 114 FEF 25-75% (L/scc) (After Albuterol): 4 FEF 25-75% Pred (After Albuterol): 124 X-rays: No x-rays were reviewed during this encounter Assessment and Plan Rosario is a 11 y.o. female with Moderate Persistent asthma. She has been challenged with exertional symptoms and recent upper respiratory illness. We discussed restarting the combination inhaler josephs taking last fall/winter and they were in agreement with this plan. We wrote the asthma action plan together today, and also reviewed the medications, administration technique and use of the bronchodilator today. We discussed allergy symptoms and gastroesophageal reflux symptoms and possible management plans--however we did not start any medications as these symptoms have not been an issue in over 8 months. We also discussed labwork for repeat Genetic testing as they have not completed this y et--and Rosario became teary and parents did not want to pursue any blood work (Genetic testing forPCD) today. They were going to think about it and discuss it again at a follow up appointment. Spirometry (FEV1) was stable today when compared to baseline without a significant bronchodilator response. Based on the frequency and severity of symptoms, Rosario has Moderate Persistent asthma. Patient's Asthma Control: Not Well Controlled. Rosario remains a candidate for chronic maintenance therapy. Exacerbating factors may include exercise, allergic rhinitis and environmental triggers. I discussed the following treatment plan with her mother, step father. Asthma ?? Maintenance (Green) Medications: use with spacer and rinse mouth after each use. - budesonide-formoterol (SYMBICORT HFA) 160mcg-4.5mcg 2 inhalations daily montelukast (SINGULAIR CHEWABLE TABLET) 5mg by mouth daily ?? Rescue (Yellow) Medications: albuterol MDI2 inhalations every 4 hours ?? Emergency (Red) Medications:albuterol MDI 4 puffs ?? Seasonal Influenza Vaccine: Scheduled to receive this fall when available (2016). ?? Return to clinic 2-3 months; sooner if any questions, concerns or change in respiratory status. Education / Self Management Goals:Symptomatic treatments reviewed. Patient's condition, differential diagnosis, and Treatment Plan reviewed. Teaching provided for the listed diagnoses and/or medications. Action plan given and discussed. Spacer use discussed. Triggers and risk factors discussed. Medications per orders. Follow up if symptoms persist, increase, or as instructed. Patient's / Parent's Insight into Illness: Partial understanding of disease and symptom management Patient's Self-Management Goal: Use my rescue inhaler prior to activity, Use my rescue inhaler whenI have cough, trouble breathing or wheezing, Take my allergy medications as directed, Rinse mouth after inhaled steroid use, Take my controller medication routinely according to my AAP, Start my controller medication, Increase use of spacer Self- Management Goal Effort: Some Effort Please feel free to contact us with questions or comments regarding Rosario's care. Sincerely, Rashmi Tabares NP documented in this encounter Plan of Treatment Upcoming Encounters Date Type Department Care Team (Late st Contact Info) Description 04/24/2024 15:30 EST Telemedicine [facility] Pediatric Pulmonary - [address] [place] [address] [place] [address] Lucy Rodgers MD [address] [place] [phone] documented as of this encounter Visit Diagnoses Diagnosis Moderate persistent asthma without complication- Primary Unspecified asthma documented in this encounter Discontinued Medications Medication Sig Discontinue Reason Start Date End Da te albuterol (PROAIR HFA) 90 mcg/actuation inhalerIndications:Moder ate persistent asthma without complication Inhale 2 Puffs as directed every 4 hours as needed for Wheezing (cough, short of breath). Duplicate Therapy 01/24/2016 01/28/2017 albuterol (PROAIR HFA) 90 mcg/actuation inhalerIndications:Moder ate persistent asthma without complication Inhale 2-4 Puffs as directed every 4 hours as needed for Wheezing (cough, short of breath) Reorder 05/24/2015 01/28/2017 budesonide-formoterol HFA (SYMBICORT) 160-4.5 mcg/actuation HFA aerosol inhaler inhalerIndications:Moder ate persistent asthma without complication Inhale 2 Puffs as directed 2 times daily. Reorder 01/24/2016 01/28/2017 inhalational spacing device (AEROCHAMBER)Indications :Moderate persistent asthma without complication Inhale 1 Device as directed daily. Spacer for MDI Reorder 01/24/2016 01/28/2017 cetirizine (ZYRTEC) 10 mg tablet Take 1 Tab by mouth daily as needed for Allergies. Reorder 11/27/2013 01/28/2017 montelukast (SINGULAIR) 5 mg chewable tablet Take 1 Tab by mouth every evening Reorder 03/22/2015 01/28/2017 documented as of this encounter Care Teams Leather Stretcher Relationship Specialty Start Date End [place] [address] PCP - General 04/10/09 documented as of this encounter
--- OUTSIDE RECORDS SUMMARY | 2024-03-30 21:48 | XMS_ITS | Encounter Summary ---
Author Organization [facility] Address [address] [place] [address] Care Team Providers Care Soaker Helper Name Role Phone Trell Pittman MD Primary Care Provider [phone] Encounter Details Date Type Department Care Team (Late st Contact Info) Description 01/29/2020 Lab Requisition [facility] Pathology & Laboratory Medicine [address] [id number] Outr Resulting Lab, Provider Social History Tobacco [...] Info) Description 04/24/2024 15:30 EST Telemedicine [facility] Pediatric Pulmonary - [address] [id number] Lucy Rodgers MD [address] [place] [address] documented as of this encounter Procedures Procedure Name Priority Date/Time Associated Diagnosis Comments DO NOT ORDER STANDALONE - BROAD COVID TEST Today 01/29/2020 10:07 EDT COVID-19 TESTING Routine 01/29/2020 10:0 7 EDT documented in this encounter Results * DO NOT ORDER STANDALONE - BROAD COVID TEST (01/29/2020 10:07 EDT) COVID-19 rt-PCR Result NEGATIVE Negative 01/30/2020 11:27 EDT [facility] Comment: 2019-novel Coronavirus (2019-nCoV) not detected by the qRT-PCR assay. Consider testing for other respiratory viruses or re-collecting for 2019-nCoV testing. Note: Optimum timing for peak viral levels during infections caused by 2019-nCoV have not been determined. Collection of multiple specimens from the same patient may be necessary to detect the virus. Limitations Positive results are indicative of active infection with SARS-CoV-2 but do not rule out bacterial infection or co-infection with other viruses. The agent detected may not be the definite cause of disease. In addition, detection of viral RNA may not indicate the presence of infectious virus or that SARS-CoV-2 is the causative agent for clinical symptoms. Negative results do not preclude SARS-CoV-2 infection and should not be used as the sole basis for patient management decisions. Negative results must be combined with clinical observations, patient history, and epidemiological information. False negative results may also occur if amplification inhibitors are present in the specimen or if inadequate numbers of organisms are present in the specimen. Optimum specimen types and timing for peak viral levels during infections caused by SARS-CoV-2 have not been fully determined. Collection of multiple specimens (types and time points) from the same patient may be necessary to detect the virus. The test was validated for use with upper respiratory specimens obtained via nasopharyngeal or oropharyngeal swabs in VTM, UTM, M4, M5, M6, saline, and MTM media. The performance of this test has not been established for other specimens. Specimens collected using other FDA recommended Specimen Collection Materials listed in the FDA COVID-19 [employer] communication (August 10, 2019) are processed with the caveat that they were not all validated for use with this test and the result must be interpreted in this context. Furthermore, a false negative results may occur if a specimen is improperly collected, transported or handled. If the virus mutates in the RT-PCR target region, SARS-CoV-2 may not be detected or may be detected less predictably. Inhibitors or other types of interference may produce a false negative result. An interference study evaluating the effect of common cold medications was not performed. This test is not FDA-cleared but its performance characteristics were established by our CLIA-certified, CAP-accredited, high complexity laboratory in accordance with CLIA regulations, [employer] (CAP) guidelines (Aug 03, 2019), and FDA guidance (Jul 15, 2019). This test is only for use under the Food and Drug Administration's Emergency Use Authorization. Swab ENTIRE NASOPHARYNX / Unknown 01/29/2020 10:07 EDT 01/29/2020 15:25 EDT us Provider Outr Resulting Lab MICROBIOLOGY - GENER AL ORDERABLES Final Result [facility] [place] * COVID-19 TESTING (01/29/2020 10:07 EDT) COVID-19 rt-PCR Result NEGATIVE Negative 01/30/2020 12:23 EDT [facility] Comment: 2019-novel Coronavirus (2019-nCoV) not detected by the qRT-PCR assay. Consider testing for other respiratory viruses or re-collecting for 2019-nCoV testing. Note: Optimum timing for peak viral levels during infections caused by 2019-nCoV have not been determined. Collection of multiple specimens from the same patient may be necessary to detect the virus. Limitations Positive results are indicative of active infection with SARS-CoV-2 but do not rule out bacterial infection or co-infection with other viruses. The agent detected may not be the definite cause of disease. In addition, detection of viral RNA may not indicate the presence of infectious virus or that SARS-CoV-2 is the causative agent for clinical symptoms. Negative results do not preclude SARS-CoV-2 infection and should not be used as the sole basis for patient management decisions. Negative results must be combined with clinical observations, patient history, and epidemiological information. False negative results may also occur if amplification inhibitors are present in the specimen or if inadequate numbers of organisms are present in the specimen. Optimum specimen types and timing for peak viral levels during infections caused by SARS-CoV-2 have not been fully determined. Collection of multiple specimens (types and time points) from the same patient may be necessary to detect the virus. The test was validated for use with upper respiratory specimens obtained via nasopharyngeal or oropharyngeal swabs in VTM, UTM, M4, M5, M6, saline, and MTM media. The performance of this test has not been established for other specimens. Specimens collected using other FDA recommended Specimen Collection Materials listed in the FDA COVID-19 [employer] communication (August 10, 2019) are processed with the caveat that they were not all validated for use with this test and the result must be interpreted in this context. Furthermore, a false negative results may occur if a specimen is improperly collected, transported or handled. If the virus mutates in the RT-PCR target region, SARS-CoV-2 may not be detected or may be detected less predictably. Inhibitors or other types of interference may produce a false negative result. An interference study evaluating the effect of common cold medications was not performed. This test is not FDA-cleared but its performance characteristics were established by our CLIA-certified, CAP-accredited, high complexity laboratory in accordance with CLIA regulations, College [employer] [place] [employer] (CAP) guidelines (Aug 03, 2019), and FDA guidance (Jul 15, 2019). This test is only for use under the Food and Drug Administration's Emergency Use Authorization. Performing Lab [facility] 01/30/2020 12:23 EDT [facility] Swab 01/29/2020 10:0 7 EDT 01/29/2020 15:25 EDT us Provider Outr Resulting Lab MICROBIOLOGY - GENER AL ORDERABLES Final Result [facility] [address] [place] [address] [facility] [place] documented in this encounter Visit Diagnoses Not on filedocumented in this encounter Care Teams Soaker Helper Relationship Specialty Start Date End Date Trell Pittman MD [address] [place] [address] PCP - General 04/10/09 documented as of this encounter
--- OUTSIDE RECORDS SUMMARY | 2024-03-30 21:48 | XMS_ITS | Encounter Summary ---
Author Organization [facility] Address [address] [place] [address] Care Team Providers Care Veterinarian Name Role Phone Trell Pittman MD Primary Care Provider [phone] Reason for Visit * Reason Onset Date Comments Medication Problem 12/14/2018 Encounter Details Date Type Department Care Team (Late st Contact Info) Description 12/14/2018 Telephone [facility] Pediatric Pulmonary - [facility] [address] [place] [address] Lucy Rodgers MD [address] [place] [address] Medication Problem Social History Tobacco [...] directed every 4 hours as needed for Wheezing. 1 Inhaler 5 12/14/2018 9 documented in this encounter Miscellaneous Notes * Telephone Encounter - Brittany Byrd RN - 12/14/2018 1246 EDT Ordered proair * Telephone Encounter - Pj Lobato - 12/14/2018 1239 EDT Xopenex HFA Inhaler was denied needs to have tried and failed Proair HFA, Proair Respiclick, and provental HFA before Xopenex can be approved documented in this encounter Plan of Treatment Upcoming Encounters Date Type Department Care Team (Late st Contact Info) Description 04/24/2024 15:30 EST Telemedicine [facility] Pediatric Pulmonary - [facility] [address] [place], [place] [address] Lucy Rodgers MD [address] [place] [phone] documented as of this encounter Visit Diagnoses Not on filedocumented in this encounter Care Teams Veterinarian Relationship Specialty Start Date End Date Trell Pittman MD [address] [place] [address] PCP - General 04/10/09 documented as of this encounter
--- OUTSIDE RECORDS SUMMARY | 2024-03-30 21:48 | XMS_ITS | Encounter Summary ---
Author Organization [facility] Address [address] [place] [address] Care Team Providers Care Javascript Web Developer Name Role Phone Trell Pittman MD Primary Care Provider [phone] Reason for Visit * Reason Comments Scoliosis * Consult, Test and Treat (Routine) - Closed Specialty Diagnoses / Procedures Referred By Paula azul Referred To Contact Orthopedic Surgery Diagnoses Scoliosis Tyvx-Ufgb-GjransTiffanie Da Silva, JOSE Phone: tel: fax: [facility] Spine Program - [address] [place] [address] Phone: tel: fax: Referral ID Status Reason Start Date Expiration Date Visits Re quested Visits Authorized [id number] Closed 1 1 Encounter Details Date Type Department Care Team (Late st Contact Info) Description 08/03/2017 12:15 EDT Office Visit [facility] Spine Program - [address] [place] [address] Arben Kate MD [address] [place] [address] [place] [address] 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) Discharge Disposition: Auto Discharge Social History Tobacco [...] Sign Reading Time Taken Comments Blood Pressure - - Pulse - - Temperature - - Respiratory Rate - - Oxygen Saturation - - Inhaled Oxygen Concentration - - Weight 51.7 kg (114 lb) 08/03/2017 1229 EDT Height 162.6 cm (5' 4) 08/03/2017 1229 EDT Body Mass Index 19.57 08/03/2017 1229 EDT Body Mass Index Percentile 64.20% 08/03/2017 122 9 EDT Growth Chart: [facility] (Girls, 2- 20 Years) documented in this encounter Mental Status * Because of a physical, mental, or emotional condition, do you have serious difficulty concentrating, remembering, or making decisions? 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 Arben Kate MD documented in this encounter Consult Notes * Arben Kate MD - 08/03/2017 0000 EDT [facility] SPINE PRO[facility] CONSULTATION - 08/03/2017 PROBLEM: Spinal asymmetry. SUBJECTIVE: The patient is a 12+7-year-old Risser 1 adolescent who had a spinal asymmetry many years ago, and in the last year she has grown significantly and wanted to get a routine followup. She has had no complaints referable to her spine or prominences noted. 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 MEDICATIONS: ProAir and Advair. SOCIAL HISTORY: The patient is in 7th grade. She plays basketball and softball. OBJECTIVE: Height 64 inches, weight 114 pounds, cooperative and appropriate. Shoulders and pelvis level, no hairy patches or skin lesions. Heel and toe walk without difficulty. Negative static and dynamic Romberg, 5/5 all muscle groups, upper and lower extremities. No clonus, negative Barb's, 2+ knee jerks. DIAGNOSTIC DATA: X-rays, full length PA demonstrates a L1-L5 curve of 7 degrees. No other bony abnormalities. Coronal and sagittal balance is maintained. ASSESSMENT: The patient with a minor spinal asymmetry, likelihood of progression extremely low. PLAN: 1. Activities to tolerance without restriction. 2. Follow up with her primary care for well-child visits and return if noted any clinical changes. Arben Kate MD 12 52 PM - Arben Kate MD jn Dictation ID: [id number] cc: Trell Pittman MD, [address] [place] [id number] documented in this encounter Plan of Treatment Upcoming Encounters Date Type Department Care Team (Late st Contact Info) Description 04/24/2024 15:30 EST Telemedicine [facility] Pediatric Pulmonary - [address] [address] Lucy Rodgers MD [address] [place] [phone] documented as of this encounter Visit Diagnoses Diagnosis Spinal asymmetry (< 10 degrees)- Primary Other curvatures of spine associated with other conditions documented in this encounter Care Teams Javascript Web Developer Relationship Specialty Start Date End Date Trell Pittman MD [address] [place] [id number] PCP - General 04/10/09 documented as of this encounter
--- OUTSIDE RECORDS SUMMARY | 2024-03-30 21:48 | XMS_ITS | Encounter Summary ---
Author Organization [facility] Address [address] [place] [address] Care Team Providers Care Electrical Linesworker Name Role Phone Trell Pittman MD Primary Care Provider [phone] Encounter Details Date Type Department Care Team (Late st Contact Info) Description 11/06/2020 Lab Requisition [facility] Pathology & Laboratory Medicine - [address] [address] Outr Resulting Lab, Provider Social History Tobacco [...] Contact Info) Description 04/24/2024 15:30 EST Telemedicine [facility] Pediatric Pulmonary - [address] [address] Lucy Rodgers MD [address] [place] [address] documented as of this encounter Procedures Procedure Name Priority Date/Time Associated Diagnosis Comments ZZCOVID-19 TEST [facility] PCR Today 11/06/2020 8:44 EDT COVID-19 TESTING Routine 11/06/2020 8:44 EDT documented in this encounter Results * COVID-19 TEST [facility] PCR (11/06/2020 8:44 EDT) Swab ENTIRE NASOPHARYNX / Unknown 11/06/2020 8:44 EDT 11/06/2020 20:53 EDT us Provider Outr Resulting Lab MICROBIOLOGY - GENER AL ORDERABLES Final Result [facility] [address] [place] [address] * COVID-19 TESTING (11/06/2020 8:44 EDT) COVID-19 rt-PCR Result Negative Negative 11/07/2020 13:33 EDT [facility] Comment: This test has [...] performed using the josse SARS-CoV-2 assay ([employer] on the Josse 6800 System Performing Lab [facility] [address] [facility] 11/07/2020 13:33 EDT [facility] Swab 11/06/2020 8:44 EDT 11/06/2020 20:53 EDT us Provider Outr Resulting Lab MICROBIOLOGY - GENER AL ORDERABLES Final Result [facility] [address] [place] [address] documented in this encounter Visit Diagnoses Not on filedocumented in this encounter Care Teams Electrical Linesworker Relationship Specialty Start Date End Date Trell Pittman MD [address] [place] [address] [place] [address] PCP - General 04/10/09 documented as of this encounter
--- OUTSIDE RECORDS SUMMARY | 2024-03-30 21:48 | XMS_ITS | Encounter Summary ---
Author Organization [facility] Address [address] [place] [address] Care Team Providers Care Hostel Manager Name Role Phone Trell Pittman MD Primary Care Provider [phone] Reason for Visit * Reason Onset Date Comments Appointment Related 10/26/2016 Encounter Details Date Type Department Care Team (Late st Contact Info) Description 10/26/2016 Telephone [facility] Pediatric Pulmonary - [facility] [address] [place] [address] Jason Mohan MD [address] [place] [address] Appointment Related Social History Tobacco [...] * Telephone Encounter - Alee Joyce - 10/26/2016 0822 EDT Called mom 10/23. Left VM to call back and schedule fur. documented in this encounter Plan of Treatment Upcoming Encounters Date Type Department Care Team (Late st Contact Info) Description 04/24/2024 15:30 EST Telemedicine [facility] Pediatric Pulmonary - [address] [address] Lucy Rodgers MD [address] [place] [phone] documented as of this encounter Visit Diagnoses Not on filedocumented in this encounter Care Teams Hostel Manager Relationship Specialty Start Date End Date Trell Pittman MD [address] [place] [address] PCP - General 04/10/09 documented as of this encounter
--- OUTSIDE RECORDS SUMMARY | 2024-03-30 21:48 | XMS_ITS | Encounter Summary ---
Author Organization [facility] Address [address] [place] [address] Care Team Providers Care Yard Operator Name Role Phone Trell Pittman MD Primary Care Provider [phone] [phone] Reason for Referral * (Routine) - New Request Specialty Diagnoses / Procedures [facility] Referred To Contact Diagnoses Moderate persistent asthma without complication Procedures SPIROMETRY WITH BRONCHODILATOR Lucy Rodgers MD Phone: tel: fax: Referral ID Status Reason Start Date Expiration Date V isits Requested Visits Authorized [id number] New Request 06/08/2019 1 1 Reason for Visit * Reason Comments Asthma Encounter Details Date Type Department Care Team (Late st Contact Info) Description 02/06/2019 9:30 EDT Office Visit [email or web address] Pediatric [facility]monary - Main [place] [address], [place] [id number] Lucy Rodgers MD [address] [place] [phone] Moderate persistent asthma without complication (Primary [...] Sign Reading Time Taken Comments Blood Pressure 130/64 02/06/2019918 EDT Pulse 80 02/06/2019918 EDT Temperature - - Respiratory Rate 16 02/06/2019918 EDT Oxygen Saturation 96% 02/06/2019918 EDT Inhaled Oxygen Concentration - - Weight 55.7 kg (122 lb 12.7 oz) 02/06/2019918 EDT Height 170.6 cm (5' 7.17) 02/06/2019918 EDT Body Mass Index 19.14 02/06/2019918 EDT Body Mass Index Percentile 46.28% 02/06/2019 9 EDT Growth Chart: [facility] (Girls, 2- 20 Years) documented in this [...] Date PROAIR HFA 90 mcg/actuation inhaler Inhale 2-4 Puffs as directed every 4 hours as needed for Wheezing (cough, short of breath). 2 Inhaler 2 02/06/2019 1 fluticasone propionate (FLONASE) 50 mcg/actuation nasal spray Instill 1 Hooks into both nostrils daily. 1 Bottle 5 02/06/2019 0 budesonide-formote rol HFA (SYMBICORT) 160-4.5 mcg/actuation HFA aerosol inhaler inhalerIndications :Moderate persistent asthma without complication Inhale 2 Puffs as directed daily. 1 Inhaler 5 02/06/2019 0 documented in this encounter Progress Notes * Lucy Rodgers MD - 02/06/2019929 EDT Images from the original note were not included. Pediatric Pulmonology James Franklin M.D., Rashmi Tabares, F.N.P., Lucy Rodgers M.D, Jason Mohan M.D. [address] [address] Encounter Date: 02/06/2019 Trell [facility] [id number] Chief Complaint: Rosario is a 13 y.o. female who is seen in pulmonary clinic for asthma. Rosario is accompanied by her mother, step father who contributed to the history. Subjective: Rosario is currently symptomatic with URI symptoms - sinus congestion, rhinorrhea, cough both day and night over the past week. She denies shortness of breath or chest tightness. Albuterol hasn't been particularly helpful for her cough. She is not using any sinus rinses. She denies any chronic cough preceding this cold. She does have intermittent exercise-related shortness of breath that respondsto pretreatment with albuterol. She had about 3 other illnesses/colds since the last visit and about a month ago needed a course of Augmentin for one of these illnesses - sinus symptoms and lung examabnormal per parents. Her sinus symptoms mostly resolved but they feel they perhaps still lingered a bit before the current symptoms developed. She does not consistently use a spacer for her Symbicort. She also has complaint of intermittent heart racing - says this is brief, occurs intermittently, onseveral occasions over the past few months. Is random and not related to a particular activity though is not associated with exercise. She does not think this feels like her asthma symptoms. They have seen her boarding house manager for this and plan further followup. Typical triggers: Infections / Colds, Environmental Allergies, Air Pollution, Dust Mites, Exercise,Cigarette Smoke Classification of Asthma Control: Daytime symptoms: None Nighttime awakenings: None Interference with normal activity: Some limitation Short-acting Beta agonist use for symptom control: Less than or equal to 2 days/week Exacerbations requiring oral systemic corticosteroids: 0-1/year ATAQ Score: 3 Medication Use: Rescue/quick relief medicines: ?? Albuterol MDI. Rosario has needed to use this medication only with exercise and with colds Preventive/long-term control: ?? Reports use of Symbicort but refill history does not support this - last filled 11/29 30 day supply. Proper use of chamber / mask: not using spacer consistently Medication Compliance: reports adherence though this is unlikely based on refill history Gastrointestinal/Nutrition: Appetite is good. Diet: healthy diet in general Gastroesophageal reflux symptoms are absent. No abdominal complaints. Otolaryngology: Rosario has had chronic congestion and currently increased congestion. Allergic symptoms are unclear. General Health: Overall behavior and activity has [...] Outpatient Medications Marked as Taking for the 02/06/19 encounter (Office Visit) with Lucy Rodgers MD [...] as needed for Wheezing. 1 Inhaler 5 Allergies Allergen Reactions ??? Bee Venom Protein [...] portion of this note. Objective Data BP 130/64 Pulse 80 Resp 16 Ht 170.6 cm (67.17) Wt 55.7 kg (122 lb 12.7 oz) SpO2 96% BMI 19.14 kg/m?? General Appearance: well appearing, alert, no acute distress, cooperative Head: normocephalic, atraumatic Eye: no injection, no discharge Ear: TMs with fluid bilaterally and mild erythema of right TM Nose: mucosal erythema, mucosal edema, clear secretions [...] liters FVC % Pred: 102 FEV1 (L): 3.18 liters FEV 1 % Pred: 98 FEF 25-75% (L/scc): 3.11 FEF 25-75% Pred: 81 PFTS (After Albuterol Treatment) FVC (L) (After Albuterol): 3.7 liters FVC % Pred (After Albuterol): 102 FEV1 (L) (After Albuterol): 2.85 liters FEV 1 % Pred (After Albuterol): 88 FEF 25-75% (L/scc) (After Albuterol): 2.4 FEF 25-75% Pred (After Albuterol): 63 X-rays: No x-rays were reviewed during this encounter Assessment and Plan Rosario is a 13 y.o. female with Moderate Persistent asthma who is symptomatic with URI and sinus symptoms. Spirometry shows slight decrease in FEV1 from previous testing and no bronchodilator response. Refill history suggests nonadherence to asthma medications and suspect inadequate administration regardless as she is not consistently using a spacer (though she does have one). New spacers given to have for both the Symbicort and albuterol. Discussed timing of antibiotic treatment for sinusitisas it is reasonable to start sinus rinses and observe and start antibiotic if symptoms persisting over the next week or worsening. They prefer to wait on antibiotic. Recommend starting maintenance merritt al steroid. They plan followup with her boarding house manager regarding the palpitations that happened occasionally. Rosario still unsure about blood draw for PCD genetic testing as has been discussed in the past. Exacerbating factors may include exercise, allergic rhinitis and environmental triggers. I discussed the following treatment plan with Rosario, her mother, and step father. ?? Maintenance (Green) Medications: use with spacer and rinse mouth after each use. ?? Symbicort 160-4.5 2 puffs twice daily, discussed adherence and spacer ?? Vest or acapella daily - Acapella daily at school on the days when she is not receiving vest at home (mom will schedule with school) ?? Rescue (Yellow) Medications: albuterol MDI 2-4 puffs every 4 hours ?? Emergency (Red) Medications:albuterol MDI 4 puffs twice and call physician ?? Recommend daily sinus rinse and start Flonase 1 spray each nostril daily; at least use the rinses during illness or when more symptomatic and may need twice a day; would benefit from daily use. Discussed that Flonase effective as maintenance and no role for prn flonase ?? Possible PCD genetic testing with an upcoming visit, if Rosario agrees (she is still considering) ?? If sinus symptoms worsening over the next week or persists over another week, will plan to startAugmentin and can call in. Mom will call if needed. If difficulty breathing or significant worsening will also want her to see her boarding house manager. ?? Seasonal Influenza Vaccine: recommended for fall [...] Contact Info) Description 04/24/2024 15:30 EST Telemedicine [facility] Pediatric Pulmonary - [address] [id number] Lucy Rodgers MD [address] [place] [phone] Scheduled Orders Name Type Priority Associated Diagnoses Orde r Schedule SPIROMETRY WITH BRONCHODILATOR PFT Routine Moderate persistent asthma without complication Expected: 06/08/2019 (Approximate), Expires: 02/06/2020 documented as of this encounter Visit Diagnoses Diagnosis Moderate persistent asthma without complication- Primary Unspecified asthma documented in this encounter Discontinued Medications Medication Sig Discontinue Reason Start Date End Da te budesonide-formoterol HFA (SYMBICORT) 160-4.5 mcg/actuation HFA aerosol inhaler inhalerIndications:Moder ate persistent asthma without complication Inhale 2 Puffs as directed daily. Reorder 11/28/2018 02/06/2019 PROAIR HFA 90 mcg/actuation inhaler Inhale 2 Puffs as directed every 4 hours as needed for Wheezing. Reorder 12/14/2018 02/06/2019 documented as of this encounter Care Teams Yard Operator Relationship Specialty Start Date End Date Trell Pittman MD [address] [place] [address] [place] [address] PCP - General 04/10/09 documented as of this encounter
--- OUTSIDE RECORDS SUMMARY | 2024-03-30 21:49 | XMS_ITS | Encounter Summary ---
Author Organization [facility] Address [address] [place] [address] Care Team Providers Care Traffic Or System Dispatcher Name Role Phone Trell Pittman MD Primary Care Provider [phone] [phone] Encounter Details Date Type Department Care Team (Late st Contact Info) Description 05/24/2015 7:20 EST - 05/24/2015 23:59 EST Hospital Encounter [facility] Pulmonary Function Lab - [facility] [address] [place] [address] Jason Mohan MD [address] [place] [address] Asthma Discharge Disposition: Home or Self Care Social [...] documented in this encounter Discharge Diagnoses Diagnosis J45.909 Unspecified asthma, uncomplicated-J45.909[ICD-10-CM] documented in this encounter Medications at Time of Discharge albuterol (PROAIR HFA) 90 mcg/actuation inhalerIndication s:Moderate persistent asthma without complication Inhale 2-4 Puffs as directed every 4 hours as needed for Wheezing (cough, short of breath) 1 Inhaler 3 05/24/2015 7 Ammonium Lactate (LAC-HYDRIN FIVE) 5 % Lotn Apply topically as needed. 02/02/2011 6 amoxicillin-clavu lanate (AUGMENTIN ES-600) 600-42.9 mg/5 mL ES suspensionIndicat ions:Cough Take 12 mL by mouth 2 times daily for 14 days 336 mL 0 05/24/2015 6 budesonide-formot vini HFA (SYMBICORT) 160-4.5 mcg/actuation HFA aerosol inhaler inhaler Inhale 2 Puffs as directed 2 times daily 3 Inhaler 3 03/22/2015 6 cetirizine (ZYRTEC) 10 mg tablet Take 1 Tab by mouth daily as needed for Allergies. 30 Tab 5 11/27/2013 7 inhalational spacing device (AEROCHAMBER) Inhale 1 Device as directed daily as needed. 1 Device 1 08/08/2012 6 lactobacillus rhamnosus, GG, (CULTURELLE) 10 billion cell capsuleIndication s:Diarrhea Take 1 Cap by mouth daily 90 Cap 5 05/24/2015 6 levalbuterol (XOPENEX HFA) 45 mcg/actuation inhaler Inhale 2 Puffs as directed every 4 hours as needed. 1 Inhaler 6 08/08/2012 9 mometasone (NASONEX) 50 mcg/actuation nasal spray 1 [place] by Nasal route 2 times daily. 6 montelukast (SINGULAIR) 5 mg chewable tablet Take 1 Tab by mouth every evening 90 Tab 6 03/22/2015 7 sodium chloride 7 % solution for nebulization Take 4 mL by nebulization 2 times daily 60 Ampule 5 03/22/2015 9 documented as of this encounter Discharge Disposition Disposition Code Departure Means Destination Home or Self Long Term documented in this encounter Progress Notes * Jim Crabtree RT - 05/24/2015 0731 EST Testing was performed and recorded in [employer]. See complete report in scanned documents. documented in this encounter Plan of Treatment Upcoming Encounters Date Type Department Care Team (Late st Contact Info) Description 04/24/2024 15:30 EST Telemedicine [facility] Pediatric Pulmonary - [facility] [address], [place] [phone] Lucy Rodgers MD [address] [place] [address] documented as of this encounter Procedures Procedure Name Priority Date/Time Associated Diagnosis Comments PULMONARY FUNCTION REPORT - SCANNED 05/24/2015 7:50 EST documented in this encounter Results * PULMONARY FUNCTION REPORT - SCANNED (05/24/2015 7:50 EST) 05/24/2015 7:50 EST us Scan 2 Research Worker Kitchen PROCEDURE/MINOR SURGICAL OR DERABLES Final Result documented in this encounter Visit Diagnoses Diagnosis Asthma Unspecified asthma documented in this encounter Administered Medications Inactive Administered Medications - up to 3 most recent administrations Medication Order MAR Action Action Date Dose Rate Site albuterol inhaler 2 Puff 2 Puff, inhalation, Once (Without Time Specified), 1 dose, Starting on Wed05/24/15 at 0800, Until Wed05/24/15 at 0730, Routine Given 05/24/2015 7:30 EST 2 Puffs documented in this encounter Orders Medications Ordered That Janes ht Not Have Been Administered Count Last Ordered Date First Ordered Date albuterol inhaler 2 Puff 1 05/24/2015 documented in this encounter Care Teams Traffic Or System Dispatcher Relationship Specialty Start Date End Date Trell Pittman MD [address] [place] [address] PCP - General 04/10/09 documented as of this encounter
--- OUTSIDE RECORDS SUMMARY | 2024-03-30 21:49 | XMS_ITS | Encounter Summary ---
Author Organization [facility] Address [address] [place] [address] Care Team Providers Care Nurse Sexual Assault Name Role Phone Trell Pittman MD Primary Care Provider [phone] [phone] Encounter Details Date Type Department Care Team (Late st Contact Info) Description 05/29/2014 14:44 EST - 05/29/2014 23:59 EST Hospital Encounter [facility] Pulmonary Function Lab - [facility] [address] [place] [address] James Franklin MD [address] [place] [address] Asthma Discharge Disposition: Home or [...] Mohit Tinajero RN documented in this encounter Medications at Time of Discharge albuterol (PROAIR HFA) 90 mcg/actuation inhaler Inhale 2-4 Puffs as directed every 4 hours as needed for Wheezing (cough, short of breath). 1 Inhaler 3 11/27/2013 5 Ammonium Lactate (LAC-HYDRIN FIVE) 5 % Lotn Apply topically as needed. 02/02/2011 6 budesonide-formot vini HFA (SYMBICORT) 160-4.5 mcg/actuation HFA aerosol inhaler inhaler Inhale 2 Puffs as directed 2 times daily. 3 Inhaler 3 05/29/2014 5 cetirizine (ZYRTEC) 1 mg/mL Soln Take by mouth. 1 tsp qd 6 cetirizine (ZYRTEC) 10 mg tablet Take 1 Tab by mouth daily as needed for Allergies. 30 Tab 5 11/27/2013 7 fluticasone-salme terol (ADVAIR HFA) 115-21 mcg/actuation inhaler Inhale 2 Puffs as directed 2 times daily. 36 g 5 11/27/2013 6 inhalational spacing device (AEROCHAMBER) Inhale 1 Device as directed daily as needed. 1 Device 1 08/08/2012 6 lactobacillus rhamnosus, GG, (CULTURELLE) 10 billion cell capsule Take 1 Cap by mouth daily. 90 Cap 3 08/08/2012 6 levalbuterol (XOPENEX HFA) 45 mcg/actuation inhaler Inhale 2 Puffs as directed every 4 hours as needed. 1 Inhaler 6 08/08/2012 9 mometasone (NASONEX) 50 mcg/actuation nasal spray 1 [place] by Nasal route 2 times daily. 6 montelukast (SINGULAIR) 5 mg chewable tablet Take 1 Tab by mouth every evening. 90 Tab 6 03/15/2014 5 Multivitamins with Minerals Tab Take 1 Tab by mouth three times a week. 6 polyethylene glycol (GLYCOLAX) 17 gram/dose powder Take 17 g by mouth daily. 527 g 11 08/08/2012 6 sodium chloride 7 % Solution for Nebulization Take 4 mL by nebulization 2 times daily. 60 Ampule 5 11/27/2013 11/06/201 5 documented as of this encounter Discharge Disposition Disposition Code Departure Means Destination Home or Self [facility] documented in this encounter Progress Notes * Morro Irizarry RT - 05/29/2014 1513 EST Testing was performed and recorded in [employer]. See complete report in scanned documents. documented in this encounter Plan of Treatment Upcoming Encounters Date Type Department Care Team (Late st Contact Info) Description 04/24/2024 15:30 EST Telemedicine [facility] Pediatric Pulmonary - Main [address] [address] Lucy Rodgers MD [address] [place] [phone] documented as of this encounter Procedures Procedure Name Priority Date/Time Associated Diagnosis Comments PULMONARY FUNCTION REPORT - SCANNED 05/29/2014 15:19 EST documented in this encounter Results * PULMONARY FUNCTION REPORT - SCANNED (05/29/2014 15:19 EST) 05/29/2014 15:1 9 EST us Scan 2 Control Clerk Subassembly PROCEDURE/MINOR SURGICAL OR DERABLES Final Result documented in this encounter Visit Diagnoses Diagnosis Asthma Unspecified asthma documented in this encounter Administered Medications Inactive Administered Medications - up to 3 most recent administrations Medication Order MAR Action Action Date Dose Rate Site albuterol inhaler 2 Puff 2 Puff, inhalation, Once (Without Time Specified), 1 dose, Starting on Wed05/29/14 at 1530, Until Wed05/29/14 at 1500, Routine Given 05/29/2014 15:00 EST 2 Puffs documented in this encounter Orders Medications Ordered That Janes ht Not Have Been Administered Count Last Ordered Date First Ordered Date albuterol inhaler 2 Puff 1 05/29/2014 documented in this encounter Care Teams Nurse Sexual Assault Relationship Specialty Start Date End Date Trell Pittman MD [address] [place] [address] [address] [facility] [place] [address] PCP - General 04/10/09 documented as of this encounter
--- OUTSIDE RECORDS SUMMARY | 2024-03-30 21:49 | XMS_ITS | Encounter Summary ---
Author Organization [facility] Address [address] [place] [address] Care Team Providers Care Energy Systems Engineer Name Role Phone Trell Pittman MD Primary Care Provider [phone] [phone] Reason for Visit * Reason Comments Ear Infection (Otitis Media) Encounter Details Date Type Department Care Team (Late st Contact Info) Description 05/29/2014 14:25 EST Office Visit [facility]- Main [address] [address] Felix Spears MD [address] [facility], [address] [place] [address] Simple or unspecified chronic serous otitis media (Primary Dx); Unspecified chronic suppurative otitis media Social History Tobacco Use Types Packs/Day Years [...] Progress Notes * Felix Spears MD - 05/29/2014 1439 EST CHIEF COMPLAINT: Recurrent otitis media, chronic serous otitis media. HISTORY OF PRESENT ILLNESS: The patient has had no troubles since last visit. She has a moderate upper respiratory infection right now with nasal discharge, mucopurulent in nature. She has had no eartrouble pain, change in her hearing. School is going well. OBJECTIVE: Alert, cooperative 8-year-old, well-nourished, in no distress. Voice is normal today. Head and face inspection and palpation are both normal. Salivary glands are normal today. Facial strength is normal today. External ear and nose all normal today. Eyes are normal today. Otoscopy: Both ear canals are normal. There is some debris in the right canal room under the microscope revealing normal eardrums and middle ear spaces bilaterally. There is some bilateral tympanosclerosis. Nose: Midline septum, congested turbinates and a mucoid nasal discharge. Lip, teeth and gums all normal for her age. Oral cavity, oropharynx are normal today. Palpation of the neck reveals no adenopathy or mass es. Audiogram shows normal hearing and normal tympanograms. ASSESSMENT: Recurrent otitis media, chronic serous otitis media, normal hearing. PLAN: Followup p.r.n. cc: Dr Jorge Alberto Pittman in [facility] (Enclosure: Audiogram) documented in this encounter Plan of Treatment Upcoming Encounters Date Type Department Care Team (Late st Contact Info) Description 04/24/2024 15:30 EST Telemedicine [facility] Pediatric Pulmonary - [address] [phone] Lucy Rodgers MD [address] [place] [phone] Scheduled Orders Name Type Priority Associated Diagnoses Orde r Schedule HEARING EVALUATION Audiology Routine Simple or unspecified chronic serous otitis media Unspecified chronic suppurative otitis media Ordered: 05/29/2014 documented as of this encounter Procedures Procedure Name Priority Date/Time Associated Diagnosis Comments AUDIOGRAM - SCANNED 06/19/2014 10:11 EST documented in this encounter Results * AUDIOGRAM - SCANNED (06/19/2014 10:11 EST) 06/19/2014 10:1 1 EST us Scan 2 Scow Captain PROCEDURE/MINOR SURGICAL OR DERABLES Final Result documented in this encounter Visit Diagnoses Diagnosis Simple or unspecified chronic serous otitis media- Primary Unspecified chronic suppurative otitis media documented in this encounter Care Teams Energy Systems Engineer Relationship Specialty Start Date End Date Trell Pittman MD [address] [place] [address] PCP - General 04/10/09 documented as of this encounter
--- OUTSIDE RECORDS SUMMARY | 2024-03-30 21:49 | XMS_ITS | Encounter Summary ---
Author Organization [facility] Address [address] [place] [address] Care Team Providers Care Wire Insulator Name Role Phone Trell Pittman MD Primary Care Provider [phone] [phone] Reason for Visit * Reason Onset Date Comments Appointment Related 02/04/2012 Encounter Details Date Type Department Care Team (Late st Contact Info) Description 02/04/2012 Telephone [facility] - [facility] [address] [place] [address] Belgica Robles MD MSc [address] [place] [address] Appointment Related Social History Tobacco Use Types Packs/Day Years Used Date Smoking Tobacco: Passive Smo ke Exposure - Never Smoker Comments:living with grandmo ther who was smoking in the house. Comments Unknown Sex and Gender Information Value [...] encounter Miscellaneous Notes * Telephone Encounter - Angelina Pires - 02/04/2012 1051 EDT Left message with Dad because Mom's number had been changed. Asked Dad to have mom call me to confirm that we moved Rosario's appointment on 02/17 to 8:30am on the same day. Waiting for mom to call meback documented in this encounter Plan of Treatment Upcoming Encounters Date Type Department Care Team (Late st Contact Info) Description 04/24/2024 15:30 EST Telemedicine [facility] Pediatric Pulmonary - [address] [id number] Lucy Rodgers MD [address] [place] [phone] documented as of this encounter Visit Diagnoses Not on filedocumented in this encounter Care Teams Wire Insulator Relationship Specialty Start Date End Date Trell [place] [address] PCP - General 04/10/09 documented as of this encounter
--- OUTSIDE RECORDS SUMMARY | 2024-03-30 21:49 | XMS_ITS | Encounter Summary ---
Author Organization [facility] Address [address] [place] [address] Care Team Providers Care Manager Document Control Name Role Phone Trell Pittman MD Primary Care Provider [phone] [phone] Reason for Visit * Reason Comments Tube Check Encounter Details Date Type Department Care Team (Late st Contact Info) Description 11/27/2013 15:20 EDT Office Visit [facility] ENT- [address] [id number] Felix Spears MD [address] [place] [address], [address] [place] [address] Simple or unspecified chronic serous [...] Progress Notes * Felix Spears MD - 11/27/2013 1422 EDT CHIEF COMPLAINT: Recurrent otitis media, chronic serous otitis media. HISTORY OF PRESENT ILLNESS: The patient has had no troubles since last visit, no ear infections, nohearing concerns. She is in good health otherwise. Speech and language are normal. OBJECTIVE: Alert, cooperative 7-year-old, well-nourished, in no distress. Both ear canals are normal. There are Maru-T tubes in both ear canals without infection or drainage. They were removed underthe microscope without complication. ASSESSMENT: Retained PE tubes. PLAN: Follow up 6 months. cc: Jorge Alberto Pittman documented in this encounter Plan of Treatment Upcoming Encounters Date Type Department Care Team (Late st Contact Info) Description 04/24/2024 15:30 EST Telemedicine [facility] Pediatric Pulmonary - [address] [id number] Lucy Rodgers MD [address] [place] [phone] documented as of this encounter Visit Diagnoses Diagnosis Simple or unspecified chronic serous otitis media- Primary Unspecified chronic suppurative otitis media documented in this encounter Care Teams Manager Document Control Relationship Specialty Start Date End Date Trell Pittman [place] [address] PCP - General 04/10/09 documented as of this encounter
--- OUTSIDE RECORDS SUMMARY | 2024-03-30 21:49 | XMS_ITS | Encounter Summary ---
Author Organization [facility] Address [address] [place] [address] Care Team Providers Care Volumetric Weigher Name Role Phone Trell Sanon MD Primary Care Provider [phone] [phone] Reason for Visit * Reason Comments Other primary ciliary dysk inesia, asthma Encounter Details Date Type Department Care Team (Late st Contact Info) Description 02/06/2013 13:15 EDT Office Visit [facility] Pediatric Pulmonary - Main [place] [address] [place] [address] James Child MD [address] [place] [address] Immotile cilia syndrome (Primary Dx); Asthma Discharge Disposition: Auto Discharge Social History Tobacco [...] Sign Reading Time Taken Comments Blood Pressure 106/59 02/06/2013 1326 EDT Pulse 84 02/06/2013 1326 EDT Temperature - - Respiratory Rate 16 02/06/2013 1326 EDT Oxygen Saturation 100% 02/06/2013 1326 EDT Inhaled Oxygen Concentration - - Weight 28.4 kg (62 lb 8.4 oz) 02/06/2013 1326 ED T Height 134.7 cm (4' 5.03) 02/06/2013 1326 EDT Body Mass Index 15.63 02/06/2013 1326 EDT Body Mass Index Percentile 44.80% 02/06/2013 132 6 EDT Growth Chart: [facility] (Girls, 2- 20 Years) documented in this encounter Mental Status * Because of a physical, mental, or emotional condition, do you have serious difficulty concentrating, remembering, or making decisions? (5 years old or older) Answer Entry Date Author Yes 02/13/2010 0:00 EDT Mohit Yusuf RN documented in this encounter Patient Instructions * Patient Instructions* James Child MD - 02/06/2013 13:40 EDT Rosario Ace is a 7 yo girl with probable ciliary dyskinesia and asthma. She should continue to take her Advair twice daily and Xopenex as needed. She would also benefit from using her vest treatments twice daily (once at school) and using hypertonic saline by nebulizer at least once daily JAMES CHILD MD documented in this encounter Ordered Prescriptions Prescription Sig Dispense Quantity Refills Last Filled Start Date End Date sodium chloride 7 % Solution for Nebulization Take 4 mL by nebulization 2 times daily. 60 Ampule 5 02/06/2013 4 fluticasone-salme terol (ADVAIR HFA) 115-21 mcg/actuation inhaler Inhale 2 Puffs as directed 2 times daily. 36 g 5 02/06/2013 4 documented in this encounter Discharge Disposition Disposition Code Departure Means Destination Auto Discharge documented in this encounter Progress Notes * James Child MD - 02/06/2013 1319 EDT Images from the original note were not included. Pediatric Pulmonology James Child M.D., Hayden Pearce, Jason Mohan M.D. [address] [id number] Encounter Date: 02/06/2013 TRELL SANON MD [address] [facility] [address] Chief complaint: Rosario is a 7 y.o. 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 Rosario is accompanied by her mother who contributed to the history. Subjective: Rosario was fairly healthy over the summer. She was treated for an episode of otitis media in October.Otherwise, she has not required antibiotics. Over the past 1-2 weeks, she has developed an intermittent productive sounding cough with rattling in her chest. She denies any shortness of breath or exertional dyspnea. Her mother has noticed coughing at night twice over the past week. She generally has been receiving vest treatments once per day. Apparently, her father has been reluctant to administer some of Rosario's recommended therapies, including vest, hypertonic saline in particular. Respiratory treatment: vest 1 times daily She is not using pulmozyme because it has not been prescribed. She is not using hypertonic saline presently. She is not using azithromycin because it was not tolerated. She is not using inhaled tobramycin because it is not indicated. Gastrointestinal/Nutrition: Rosario's appetite is stable. Her diet is healthy diet in general well balanced. Supplemental nutrition is not indicated at this time . She has about 1 stool per day. Stools are formed. Gastroesophageal reflux symptoms are absent. She has been off of Miralax and lansoprazole for several months. Otolaryngology: Rosario has had no recent sinusitis. Allergy related symptoms are throat clearing and congestion. She is not using sinus rinse kits currently. General Health: Her overall behavior has been normal, playful. In regard to activity, she is very active. She hopesto play basketball this winter. Rosario has missed 0 days of school due to illness. Environmental Exposure: No interval change since the last visit. Environmental Tobacco Exposure: No REVIEW OF SYSTEMS: Positive for: congestion, cough Negative for: fever, chills, malaise, runny nose, ear pain, shortness of breath, increased work of breathing, tachypnea, wheezing, stridor, exertional symptoms, exercise limitation, vomiting, nausea,diarrhea, headache, cyanosis, pallor A complete review of systems was obtained and was negative except listed above. Past Medical History Diagnosis Date ??? OM (otitis media) ??? Asthma Always rattley per mom ??? Esophageal reflux ??? Unspecified sinusitis (chronic) ??? Allergic conjunctivitis ??? Scoliosis ??? Stomach problems ??? Sleeping difficulty ??? Hearing loss ??? Allergic rhinitis dust mites and tree pollen ??? Gastroesophageal reflux disease 02/12/2010 Normal EGD/colonoscopy 01/2011 Past Surgical History Procedure Date ??? Pyloromyotomy 3 sets of PE tubes ??? Pr bronchoscopy,diagnostic w lavage 02/11/2010 ??? Pr create eardrum opening,gen anesth ??? Adenoidectomy ??? Tympanostomy tube placement ??? Pr bronchoscopy,diagnostic w lavage 02/04/2011 Past Medical and Surgical History was documented in [facility]. Family History Problem Relation Age of Onset ??? Allergies Mother environment, amoxicillin ??? Food Intolerance Mother lactose intolerant ??? Constipation Mother ??? Diarrhea Mother ??? Migraines Mother ??? Allergies Father environment ??? Food Intolerance Brother lactose ??? * Paternal Grandfather diverticulitis ??? Diarrhea Maternal Grandmother ??? High Cholesterol Maternal Grandmother ??? Celiac Disease Other Outpatient Prescriptions Marked as Taking for the 02/06/13 encounter (Office Visit) with James Child MD Medication Sig Dispense Refill ??? fluticasone-salmeterol (ADVAIR HFA) 115-21 mcg/actuation inhaler Inhale 2 Puffs as directed 2 times daily. 36 g 5 ??? levalbuterol (XOPENEX HFA) 45 mcg/actuation inhaler Inhale 2 Puffs as directed every 4 hours asneeded. 1 Inhaler 6 ??? inhalational spacing device (AEROCHAMBER) Inhale 1 Device as directed daily as needed. 1 Device1 ??? DISCONTD: fluticasone-salmeterol (ADVAIR HFA) 115-21 mcg/actuation inhaler Inhale 2 Puffs as directed 2 times daily. 36 g 5 ??? Multivitamins with Minerals Tab Take 1 Tab by mouth three times a week. Allergies Allergen Reactions ??? Adhesive Tape Other (See Comments) blisters ??? Milk Nausea And Vomiting And itchy, rash, nasal congestion ??? Other - See Comments Dust mites Living Conditions ??? Lives with Mother primarily (sees father regularly) dad every other weekend and Tues and Wed ??? Other individuals living in the home brother; ??? Parents status Weekdays ??? Education Grade 3 ??? Reported academic performance Excellent Safety and Environmental Exposures ??? Pets Yes 2 cats at mom; 2 dogs at dad ??? Carpets Yes Objective Data: BP 106/59 Pulse 84 Resp 16 Ht 134.7 cm (53.03) Wt 28.36 kg (62 lb 8.4 oz) BMI 15.63 kg/m2 SpO2 100% Wt Readings from Last 5 Encounters: 02/06/13 28.36 kg (62 lb 8.4 oz) (67.99%*) 08/08/12 25.45 kg (56 lb 1.7 oz) (58.40%*) 08/08/12 25.45 kg (56 lb 1.7 oz) (58.40%*) 05/05/12 25.3 kg (55 lb 12.4 oz) (64.13%*) 05/05/12 25.3 kg (55 lb 12.4 oz) (64.13%*) * Growth percentiles are based on [facility] 2-20 Years data. General Appearance: well appearing, alert, no acute distress, cooperative Head: normocephalic, atraumatic Eye: no injection, no discharge Ear: canals clear bilaterally, tympanostomy tubes patent and in proper position Nose: crusted yellow discharge on the left, erythema bilaterally. Mouth\Throat: moist mucosa, oropharynx without exudate, erythema or thrush, 2+ tonsils Lymph Nodes: shotty cervical adenopathy Chest\Lungs: Air entry is good bilaterally, coarse transmitted expiratory noise centrally that transiently resolves after a cough, wheezing is not appreciated, crackles are not appreciated, no retractions, expiratory phase is within normal limits, cough is present Abdomen: abdomen is soft, nontender, and nondistended without hepatosplenomegaly or masses and normoactive bowel sounds are present Heart: S1/S2 RRR and no murmur Skin: Warm and dry, Cyanosis is absent MSK:Clubbing is absent Diagnostic Data: PFTs: PFTS (Before Albuterol Treatment) FVC (L): 2 liters FVC % Pred: 103 FEV1 (L): 1.84 liters FEV 1 % Pred: 106 FEF 25-75% (L/scc): 2.59 FEF 25-75% Pred: 118 FEV-1/FVC % Pred: 92 PFTS (After Albuterol Treatment) FVC (L) (After Albuterol): 2.08 liters FVC % Pred (After Albuterol): 107 FEV1 (L) (After Albuterol): 1.94 liters FEV 1 % Pred (After Albuterol): 112 FEF 25-75% (L/scc) (After Albuterol): 2.75 FEF 25-75% Pred (After Albuterol): 126 FEV-1/FVC (After Albuterol): 93 Culture Results: No results found for this or any previous visit. Results for orders placed in visit on 05/05/12 CYSTIC FIBROSIS RESPIRATORY CULTURE, SWAB Component Value Range Specimen Description Throat Result Mod Usual tiff-pharyngeal ana Report Status 05/10/2012 Final Assessment and Plan: Rosario is 7 y.o. 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 Spirometry showed stable lung function without a bronchodilator response. She has recently developed some symptoms and has evidence of increased secretions on examination. In the past, this had responded well to airway clearance and hypertonic saline. At this point, I see no benefit to restarting Singulair. Her abdominal complaints have resolved, now off of medication. Her growth continues to be excellent. Asthma and Postnasal drip may be exacerbating factors. The following plan was discussed with her mother: ?? Continue medications as above ?? Airway Clearance: recommend vest 2 times daily (one treatment at school) ?? Restart 7% hypertonic saline 1-2 times daily ?? Sinus rinse kits once or twice daily ?? No scheduled Xopenex prior to exercise ?? Discussed the following exercise recommendations: 30 min per day ?? Asthma Action Plan given today ?? Studies today include: spirometry ?? Follow up in 3-4 months. Seasonal Influenza Vaccine: recommended for this fall. Please contact me with questions or concerns regarding Rosario's care. Sincerely, JAMES CHILD MD documented in this encounter Plan of Treatment Upcoming Encounters Date Type Department Care Team (Late st Contact Info) Description 04/24/2024 15:30 EST Telemedicine [facility] Pediatric Pulmonary - Main [place] [address] [place], [place] [address] Lucy Rodgers MD [address] [place] [phone] documented as of this encounter Visit Diagnoses Diagnosis Immotile cilia syndrome- Primary Situs inversus Asthma Unspecified asthma documented in this encounter Discontinued Medications Medication Sig Discontinue Reason Start Date End Da te lansoprazole (PREVACID) 30 mg capsule Take 1 Cap by mouth daily. Therapy completed 08/08/2012 02/06/2013 dicyclomine (BENTYL) 10 mg/5 mL syrup Take 2.5 mL by mouth 3 times daily as needed for Pain. Therapy completed 08/08/2012 02/06/2013 fluticasone-salmetero l (ADVAIR HFA) 115-21 mcg/actuation inhaler Inhale 2 Puffs as directed 2 times daily. Reorder 08/08/2012 02/06/2013 sodium chloride 7 % Nebu Take 4 mL by nebulization 2 times daily. Reorder 05/05/2012 02/06/2013 documented as of this encounter Care Teams Volumetric Weigher Relationship Specialty Start Date End Date Trell Sanon MD [address] [place] [address] [place] [address] PCP - General 04/10/09 documented as of this encounter
--- OUTSIDE RECORDS SUMMARY | 2024-03-30 21:49 | XMS_ITS | Encounter Summary ---
Author Organization [facility] Address [address] [place] [address] Care Team Providers Care Office Support Specialist Name Role Phone Trell Sanon MD Primary Care Provider [phone] [phone] Reason for Visit * Reason Comments Gastroesophageal Reflux Constipation Encounter Details Date Type Department Care Team (Late st Contact Info) Description 12/08/2011 14:00 EDT Office Visit [facility] - Main [place] [address] [place] [address] Belgica Robles MD MSc [address] [place] [address] Abdominal pain, periumbilic; GERD (gastroesophageal reflux disease); Constipation, chronic Social History Tobacco Use Types Packs/Day [...] Sign Reading Time Taken Comments Blood Pressure 104/57 12/08/2011 1410 EDT Pulse 99 12/08/2011 1410 EDT Temperature - - Respiratory Rate - - Oxygen Saturation - - Inhaled Oxygen Concentration - - Weight 24 kg (53 lb) 12/08/2011 1410 EDT Height 127.3 cm (4' 2.12) 12/08/2011 1410 EDT Body Mass Index 14.83 12/08/2011 1410 EDT Body Mass Index Percentile 34.31% 12/08/2011 141 0 EDT Growth Chart: [facility] (Girls, 2- 20 Years) documented in this encounter Mental Status * Because of a physical, mental, or emotional condition, do you have serious difficulty concentrating, remembering, or making decisions? (5 years old or older) Answer Entry Date Author Yes 02/13/2010 0:00 EDT Mohit uYsuf RN documented in this encounter Patient Instructions * Patient Instructions* Belgica Robles MD - 12/08/2011 14:34 EDT 1. Agree with starting probiotics (Lactobacillus 3x/day) 2. Goal fiber intake 12-15 grams/day 3. Can use bentyl every 4-6 hours as needed for pain (1/2 teaspoon = 2.5 ml) documented in this encounter Ordered Prescriptions Prescription Sig Dispense Quantity Refills Last Filled Start Date End Date dicyclomine (BENTYL) 10 mg/5 mL syrup Take 2.5 mL by mouth 3 times daily as needed for Pain. 300 mL 3 12/08/2011 08/08/2012 documented in this encounter Progress Notes * Belgica Robles MD - 12/08/2011 1426 EDT TRELL SANON MD [address] [place] [address] Dear TRELL SANON MD: Rosario Ace was seen in the [facility] in follow-up for reflux, primary ciliary dyskinesia, and abdominal pain on 12/08/2011. She was accompanied by her mother who provided the history. CC: Abdominal pain HISTORY: Tried benefiber/metamucil daily for abdominal pain. She is having pains every other day, maybe worse after she eats. Parents going through a divorce, mother unclear if stress is playing a role (as symptoms developed before the divorce). She has a significant amount of gas (burping and flatus)--has been a chronic issue, maybe a year. She is supposed to take daily miralax, however she has not been using it consistently. Usually use 1-2 capfuls miralax daily. Has regurgitation a few times a month.Spicy foods seem to make the regurgitation worse. PAST MEDICAL, SURGICAL, FAMILY HISTORY, AND SOCIAL HISTORY: I have reviewed, verified, and personally updated the past medical, surgical, , and family history in the medical record. Patient Active Problem List Diagnoses Date Noted ??? Simple or unspecified chronic serous otitis media 03/18/2011 ??? Constipation, chronic 07/29/2010 ??? Primary ciliary dyskinesia 02/12/2010 ??? Asthma 02/12/2010 ??? GERD (gastroesophageal reflux disease) 02/12/2010 ??? Unspecified Chronic Suppurative Otitis Media 03/29/2009 TP OR PP MEDICATIONS: Current Outpatient Prescriptions Medication Sig Dispense Refill ??? mometasone (NASONEX) 50 mcg/actuation nasal spray 1 [place] by Nasal route 2 times daily. ? ? lactobacillus acidophilus & bulgar (LACTINEX) chewable tablet Take 1 Tab by mouth 3 times daily with meals. 90 Tab 5 ??? fluticasone-salmeterol (ADVAIR HFA) 115-21 mcg/actuation inhaler Inhale 2 Puffs as directed 2 times daily. 36 g 5 ??? dicyclomine (BENTYL) 10 mg/5 mL syrup Take 2.5 mL by mouth 3 times daily as needed for Pain. 300 mL 3 ??? polyethylene glycol (GLYCOLAX) 17 gram/dose powder take 1 CAPFUL (17GM) (DISSOLVED IN WATER) bymouth once daily 527 g 3 ??? UNABLE TO FIND Take 7 % by nebulization 2 times daily. Med Name:Hyper tonic Saline (7%) ??? PREVACID 30 mg capsule take 1 capsule by mouth once daily 90 Cap 3 ??? montelukast (SINGULAIR) 5 mg chewable tablet Take 1 Tab by mouth every evening. 30 Tab 6 ??? levalbuterol (XOPENEX HFA) 45 mcg/Actuation inhaler Inhale 2 Puffs as directed every 4 hours asneeded. 1 Inhaler 6 ??? sodium chloride sinus rinse (NEILMED SINUS RINSE) Pack 1 Kit by Nasal route as needed for Other. 1 Kit 5 ??? Ammonium Lactate (LAC-HYDRIN FIVE) 5 % Lotn Apply topically as needed. ??? inhalational spacing device (AEROCHAMBER) Inhale 1 Device as directed daily as needed. 1 Device1 ??? cetirizine (ZYRTEC) 1 mg/mL Soln Take by mouth. 1 tsp qd ??? azithromycin (ZITHROMAX) 200 mg/5 mL suspension Take 5 mL by mouth three times a week. Take 1 tsp by mouth (5ml) three times per week (M,W, F) 60 mL 2 ??? Multivitamins with Minerals Tab Take 1 Tab by mouth three times a week. ALLERGIES: Allergies Allergen Reactions ??? Adhesive Tape Other (See Comments) blisters ??? Milk Nausea And Vomiting And itchy, rash, nasal congestion ??? Other - See Comments Dust mites REVIEW OF SYSTEMS: Complete review of systems and interval history was documented and is scanned in to the EMR in our visit questionnaire. PHYSICAL EXAM: Blood pressure 104/57, pulse 99, height 127.3 cm (50.12), weight 24.04 kg (53 lb)., 63.79%ile based on CDC 2-20 Years [id number] data., 85.45%ile based on CDC 2-20 Years [id number] data., ,Body mass index is 14.83 kg/(m^2).,, 34.3%ile based on CDC 2-20 Years BMI-for-age data. Healthy, alert, well-nourished appearing child. HEENT demonstrates normal extraocular movements. There is no icterus. Nose has no discharge. Mouth exam is normal. Neck is supple with no adenopathy. Thyroid is not palpable. Cardiac examination reveals regular rate and rhythm with no murmurs, heaves,or gallops. Lungs are clear to auscultation bilaterally. Abdomen is soft, non-tender, with no masses or hepatosplenomegaly. Rectal exam deferred. There is no inguinal, axillary, or supraclavicular adenopathy. Extremities demonstrate no clubbing, telangiectasias, other lesions or rash. There is no edema. Neurologic examination is grossly normal. DATA/DIAGNOSTIC STUDIES: Labs: Reviewed in [facility] (normal EGD/colonoscopy 01/2011) Radiology: Reviewed in [facility] I have reviewed the medical record. History obtained from mother. IMPRESSION: 5 yo female with: 1. Periumbilical abdominal pain 2. History of constipation--stable on miralax therapy 3. Flatulence/abdominal distention 4. Ciliary dyskinesia, asthma 5. GERD--only with mild regurgitation symptoms occasionally Abdominal pain is most likely functional given history of negative workup in the past (including EGD/colonoscopy). Would consider IBS treatment given symptoms. Not consistent with lactose intolerancegiven that she is allergic to milk protein and doesn't eat any lactose-containing foods. RECOMMENDATIONS: Patient Instructions 1. Agree with starting probiotics (Lactobacillus 3x/day) 2. Goal fiber intake 12-15 grams/day 3. Can use bentyl every 4-6 hours as needed for pain (1/2 teaspoon = 2.5 ml) Plan of care, including education on the safe and effective use of medication(s) and/or medical equipment if prescribed, was discussed with mother. She verbalized understanding and agreed to the treatment options discussed. Belgica Robles MD Pediatric Gastroenterology [facility] documented in this encounter Plan of Treatment Upcoming Encounters Date Type Department Care Team (Late st Contact Info) Description 04/24/2024 15:30 EST Telemedicine [facility] Pediatric Pulmonary - [facility] [address] [place], [place] [id number] Lucy Rodgers MD [address] [place] [address] documented as of this encounter Visit Diagnoses Diagnosis Abdominal pain, periumbilic GERD (gastroesophageal reflux disease) Esophageal reflux Constipation, chronic Unspecified constipation documented in this encounter Care Teams Office Support Specialist Relationship Specialty Start Date End Date Trell Sanon MD [address] [place] [address] [place] [address] PCP - General 04/10/09 documented as of this encounter
--- OUTSIDE RECORDS SUMMARY | 2024-03-30 21:49 | XMS_ITS | Encounter Summary ---
Author Organization [facility] Address [address] [place] [address] Care Team Providers Care Line Maintenance Technician Name Role Phone Trell Pittman MD Primary Care Provider [phone] [phone] Reason for Visit * Reason Onset Date Comments Advice Only 03/18/2012 Encounter Details Date Type Department Care Team (Late st Contact Info) Description 03/18/2012 Telephone [facility] Pediatric Pulmonary - [facility] [address] [place] [address] James Franklin MD [address] [place] [address] Advice Only Social History Tobacco [...] Telephone Encounter - Vaishali García RN - 03/22/2012 1222 EST Mom called and is 14 weeks , with a different father. Her fur coat sewer was asking her what the chances are of having another child with pcd. Told her I will look into it and call her back. Speaking w/ our providers, she should have her ob set up a genetic counselor for her and the fatherto meet with and discuss. Asked her to call back to discuss further. * Telephone Encounter - Arin Avila - 03/18/2012 1450 EDT Rosario's mother with questions for a nurse. documented in this encounter Plan of Treatment Upcoming Encounters Date Type Department Care Team (Late st Contact Info) Description 04/24/2024 15:30 EST Telemedicine [facility] Pediatric Pulmonary - [facility] [address] [place], [place] [address] Lucy Rodgers MD [address] [place] [address] documented as of this encounter Visit Diagnoses Not on filedocumented in this encounter Care Teams Line Maintenance Technician Relationship Specialty Start Date End Date [place] [address] PCP - General 04/10/09 documented as of this encounter
--- OUTSIDE RECORDS SUMMARY | 2024-03-30 21:49 | XMS_ITS | Encounter Summary ---
Author Organization [facility] Address [address] [place] [address] Care Team Providers Care Terra Cotta Mason Name Role Phone Trell Pittman MD Primary Care Provider [phone] [phone] Encounter Details Date Type Department Care Team (Late st Contact Info) Description 12/08/2011 9:30 EDT - 12/08/2011 23:59 EDT Hospital Encounter [facility] Pulmonary Function Lab - [facility] [address] [place] [address] Unknown, Provider, James Reyna MD [address] [place] [address] Asthma (Primary Dx) Discharge Disposition: Home or Self Care Social [...] this encounter Medications at Time of Discharge Ammonium Lactate (LAC-HYDRIN FIVE) 5 % Lotn Apply topically as needed. 02/02/2011 6 azithromycin (ZITHROMAX) 200 mg/5 mL suspension Take 5 mL by mouth three times a week. Take 1 tsp by mouth (5ml) three times per week (M,W, F) 60 mL 2 02/14/2010 3 cetirizine (ZYRTEC) 1 mg/mL Soln Take by mouth. 1 tsp qd 6 dicyclomine (BENTYL) 10 mg/5 mL syrup Take 2.5 mL by mouth 3 times daily as needed for Pain. 300 mL 3 12/08/2011 3 fluticasone-salme terol (ADVAIR HFA) 115-21 mcg/actuation inhaler Inhale 2 Puffs as directed 2 times daily. 36 g 5 12/08/2011 3 inhalational spacing device (AEROCHAMBER) Inhale 1 Device as directed daily as needed. 1 Device 1 12/22/2010 3 lactobacillus acidophilus & bulgar (LACTINEX) chewable tablet Take 1 Tab by mouth 3 times daily with meals. 90 Tab 5 12/08/2011 3 levalbuterol (XOPENEX HFA) 45 mcg/Actuation inhaler Inhale 2 Puffs as directed every 4 hours as needed. 1 Inhaler 6 02/12/2011 3 mometasone (NASONEX) 50 mcg/actuation nasal spray 1 [place] by Nasal route 2 times daily. 6 montelukast (SINGULAIR) 5 mg chewable tablet Take 1 Tab by mouth every evening. 30 Tab 6 03/18/2011 4 Multivitamins with Minerals Tab Take 1 Tab by mouth three times a week. 6 polyethylene glycol (GLYCOLAX) 17 gram/dose powder take 1 CAPFUL (17GM) (DISSOLVED IN WATER) by mouth once daily 527 g 3 11/03/2011 3 PREVACID 30 mg capsule take 1 capsule by mouth once daily 90 Cap 3 04/19/2011 3 sodium chloride sinus rinse (NEILMED SINUS RINSE) Pack 1 Kit by Nasal route as needed for Other. 1 Kit 5 02/04/2011 2 UNABLE TO FIND Take 7 % by nebulization 2 times daily. Med Name:Hyper tonic Saline (7%) 3 documented as of this encounter Discharge Disposition Disposition Code Departure Means Destination Home or Self Long-Term documented in this encounter Progress Notes * Soraya Bosch RT - 12/08/2011 0957 EDT Testing was performed and recorded in [employer]. See complete report in scanned documents. documented in this encounter Plan of Treatment Upcoming Encounters Date Type Department Care Team (Late st Contact Info) Description 04/24/2024 15:30 EST Telemedicine [facility] Pediatric Pulmonary - Main [address] [address] Lucy Rodgers MD [address] [place] [phone] documented as of this encounter Visit Diagnoses Diagnosis Asthma- Primary Unspecified asthma documented in this encounter Administered Medications Inactive Administered Medications - up to 3 most recent administrations Medication Order MAR Action Action Date Dose Rate Site albuterol (PROVENTIL HFA, VENTOLIN HFA) inhaler 2 Puff 2 Puff, inhalation, Once (Without Time Specified), 1 dose, Starting on Wed12/08/11 at 1015, Until Wed12/08/11 at 0953, Routine Given 12/08/2011 9:53 EDT 2 Puffs documented in this encounter Orders Medications Ordered That Janes ht Not Have Been Administered Count Last Ordered Date First Ordered Date albuterol (PROVENTIL HFA, VE NTOLIN HFA) inhaler 2 Puff 1 12/08/2011 documented in this encounter Care Teams Terra Cotta Mason Relationship Specialty Start Date End Date Trell Pittman MD [address] [place] [address] [place] [address] PCP - General 04/10/09 documented as of this encounter
--- OUTSIDE RECORDS SUMMARY | 2024-03-30 21:49 | XMS_ITS | Encounter Summary ---
Author Organization [facility] Address [address] [place] [address] Care Team Providers Care Rail Express Clerk Name Role Phone Trell Pittman MD Primary Care Provider [phone] [phone] Encounter Details Date Type Department Care Team (Late st Contact Info) Description 07/22/2015 Orders Only [facility] Pediatric Pulmonary - [facility] [address] [place], [place] [id number] Lucy Rodgers MD [address] [place] [address] Social History Tobacco Use Types [...] Refills Last Filled Start Date End Date albuterol (PROAIR HFA) 90 mcg/actuation inhaler Inhale 2-4 Puffs as directed every 4 hours as needed for Wheezing (cough, short of breath). 2 Inhaler 3 07/22/2015 6 documented in this encounter Plan of Treatment Upcoming Encounters Date Type Department Care Team (Late st Contact Info) Description 04/24/2024 15:30 EST Telemedicine [facility] Pediatric Pulmonary - [address] [phone] Lucy Rodgers MD [address] [place] [phone] documented as of this encounter Visit Diagnoses Not on filedocumented in this encounter Care Teams Rail Express Clerk Relationship Specialty Start Date End Date Trell Pittman MD [address] [place] [address] PCP - General 04/10/09 documented as of this encounter
--- OUTSIDE RECORDS SUMMARY | 2024-03-30 21:49 | XMS_ITS | Encounter Summary ---
Author Organization [facility] Address [address] [place] [address] Care Team Providers Care Education Coordinator Name Role Phone Trell Pittman MD Primary Care Provider [phone] [phone] Encounter Details Date Type Department Care Team (Late st Contact Info) Description 05/05/2012 9:53 EST Hospital Encounter [facility] Pulmonary Function Lab - [facility] [address] [place], [place] [id number] Unknown, Provider, James Reyna MD [address] [place] [address] Discharge Disposition: Home or Self Care Social [...] mometasone (NASONEX) 50 mcg/actuation nasal spray 1 [place] by Nasal route 2 times daily. 6 [...] once daily 90 Cap 3 04/19/2011 3 UNABLE TO FIND Take 7 % by nebulization 2 times daily. Med Name:Hyper tonic Saline (7%) 3 documented as of this encounter Discharge Disposition Disposition Code Departure Means Destination Home or Self Nursing Home documented in this encounter Plan of Treatment Upcoming Encounters Date Type Department Care Team (Late st Contact Info) Description 04/24/2024 15:30 EST Telemedicine [facility] Pediatric Pulmonary - [address] [phone] Lucy Rodgers MD [address] [place] [phone] documented as of this encounter Visit Diagnoses Not on filedocumented in this encounter Care Teams Education Coordinator Relationship Specialty Start Date End Date Trell Pittman MD [address] [place] [address] [place] [address] PCP - General 04/10/09 documented as of this encounter
--- OUTSIDE RECORDS SUMMARY | 2024-03-30 21:49 | XMS_ITS | Encounter Summary ---
Author Organization [facility] Address [address] [place] [address] Care Team Providers Care Heat Reader Name Role Phone Trell Pittman MD Primary Care Provider [phone] [phone] Encounter Details Date Type Department Care Team (Late st Contact Info) Description 02/06/2013 11:38 EDT - 02/06/2013 23:59 EDT Hospital Encounter [facility] Pulmonary Function Lab - [facility] [address] [place], [place] [phone] Unknown, Provider, James Reyna MD [address] [place] [address] Discharge Disposition: Auto Discharge Social History Tobacco [...] Lotn Apply topically as needed. 02/02/2011 6 cetirizine (ZYRTEC) 1 mg/mL Soln Take by mouth. 1 tsp qd 6 fluticasone-salme terol (ADVAIR HFA) 115-21 mcg/actuation inhaler Inhale 2 Puffs as directed 2 times daily. 36 g 5 02/06/2013 4 inhalational spacing device (AEROCHAMBER) Inhale 1 Device [...] mometasone (NASONEX) 50 mcg/actuation nasal spray 1 [place] by Nasal route 2 times daily. 6 [...] times daily. 60 Ampule 5 02/06/2013 4 documented as of this encounter Discharge Disposition Disposition Code Departure Means Destination Auto Discharge Home documented in this encounter Procedure Notes * STEEL WOOL MACHINE OPERATOR, SCAN 2 - 02/19/2013 2100 EDTAssociated Order(s): PULMONARY FUNCTION REPORT - SCANNED * STEEL WOOL MACHINE OPERATOR, SCAN 2 - 02/06/2013 1308 EDTAssociated Order(s): PULMONARY FUNCTION REPORT - SCANNED documented in this encounter Plan of Treatment Upcoming Encounters Date Type Department Care Team (Late st Contact Info) Description 04/24/2024 15:30 EST [facility]medicine [facility] Pediatric Pulmonary - [facility] [address] [place] [address] Lucy Rodgers MD [address] [place] [phone] documented as of this encounter Procedures Procedure Name Priority Date/Time Associated Diagnosis Comments PULMONARY FUNCTION REPORT - SCANNED 02/19/2013 21:00 EDT PULMONARY FUNCTION REPORT - SCANNED 02/06/2013 13:08 EDT documented in this encounter Results * PULMONARY FUNCTION REPORT - SCANNED (02/19/2013 21:00 EDT) 02/19/2013 21:0 0 EDT Narrative 02/19/2013 21:25 EDT Procedure Note STEEL WOOL MACHINE OPERATOR, SCAN 2 - 02/19/2013 21:00 EDT us Scan 2 Band Sawmill Operator PROCEDURE/MINOR SURGICAL OR DERABLES Final Result * PULMONARY FUNCTION REPORT - SCANNED (02/06/2013 13:08 EDT) 02/06/2013 13:0 8 EDT Narrative 02/06/2013 14:59 EDT Procedure Note STEEL WOOL MACHINE OPERATOR, SCAN 2 - 02/06/2013 13:08 EDT us Scan 2 Band Sawmill Operator PROCEDURE/MINOR SURGICAL OR DERABLES Final Result documented in this encounter Visit Diagnoses Not on filedocumented in this encounter Care Teams Heat Reader Relationship Specialty Start Date End Date Trell Pittman MD [address] [place] [address] PCP - General 04/10/09 documented as of this encounter
--- OUTSIDE RECORDS SUMMARY | 2024-03-30 21:49 | XMS_ITS | Encounter Summary ---
Author Organization [facility] Address [address] [place] [address] Care Team Providers Care Hospital Chief Executive Officer Name Role Phone Trell Sanon MD Primary Care Provider [phone] [phone] Reason for Visit * Reason Comments Cough Nasal Congestion Encounter Details Date Type Department Care Team (Late st Contact Info) Description 05/05/2012 11:15 EST Office Visit [facility] Pediatric Pulmonary - [place] [address] [place] [address] Rashmi Tabares, HOSPICE OFFICE COORDINATOR [address] [place] [phone] Immotile cilia syndrome (Primary Dx); Asthma; Gastroesophageal reflux disease; Unspecified sinusitis (chronic) Discharge Disposition: Auto Discharge Social History Tobacco [...] Sign Reading Time Taken Comments Blood Pressure 111/55 05/05/2012 0957 EST Pulse 89 05/05/2012 0957 EST Temperature - - Respiratory Rate 20 05/05/2012 0957 EST Oxygen Saturation 99% 05/05/2012 0957 EST Inhaled Oxygen Concentration - - Weight 25.3 kg (55 lb 12.4 oz) 05/05/[address] Height 130.8 cm (4' 3.5) 05/05/2012 0957 EST Body Mass Index 14.79 05/05/2012 0957 EST Body Mass Index Percentile 30.76% 05/05/2012 095 7 EST Growth Chart: [facility] (Girls, 2- 20 Years) documented in this encounter Mental Status * Because of a physical, mental, or emotional condition, do you have serious difficulty concentrating, remembering, or making decisions? (5 years old or older) Answer Entry Date Author Yes 02/13/2010 0:00 EDT Mohit Yusuf RN documented in this encounter Ordered Prescriptions Prescription Sig Dispense Quantity Refills Last Filled Start Date End Date cefdinir (OMNICEF) 250 mg/5 mL suspension Take 3.5 mL by mouth 2 times daily for 14 days. 98 mL 0 05/05/2012 3 sodium chloride 7 % Nebu Take 4 mL by nebulization 2 times daily. 60 Ampule 5 05/05/2012 3 documented in this encounter Discharge Disposition Disposition Code Departure Means Destination Auto Discharge documented in this encounter Progress Notes * Rashmi Tabares NP - 05/05/2012 1056 EST Images from the original note were not included. Pediatric Pulmonology James Franklin M.D., Hayden Pearce, Jason Mohan M.D. [address] [address] Encounter Date: 05/05/2012 TRELL SANON MD [place] [address] [facility] [address] Chief complaint: Rosario is a 6 y.o. 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 Rosario is accompanied by her mother who contributed to the history. Subjective: Rosario has been symptomatic with URI symptoms and strep throat for the past two weeks. Prior to the past couple of weeks, Rosario has been doing quite well per mother. She has not been keeping up with sinus rinses, but she has been pretty good with doing her vest at least daily. She does not use the hypertonic saline--only with colds--but has been out of the prescription for a little. She would like to have this refilled today. She feels that they got behind on keeping the sinuses cleared and so has been congested for the past two weeks. She did just finish amoxicillin for 10 days for strep throat and it did bother her stomach. She has been off antibiotics for the past 1-2 weeks and Rosario has continued to be very congested and started coughing this week. Mom is worried about the holidays. Symptoms include: Cough: Details: night > day (for the past 2 weeks) and sometimes with vest treatments this week Wheezing: Details: no wheezing Shortness of breath: no Chest pain: no chest pain The symptoms have been present since 1-2 week(s) ago and are worsening without treatment. Diurnal variation is reported and symptoms are worse bedtime. Exacerbants are suspected to include [place], environmental triggers. She has had no additional symptoms of apneic episodes, chest pain, chest tightness, chronic cough, cyanotic episodes, difficulty breathing, exercise limitation, increased work of breathing, tachypnea, shortness of breath, stridor, symptoms with exertion and wheezing over the last 3 month(s). She has not had fatigue, sleep disturbance, decrease in energy, fever, chills, night sweats, stridor and wheeze. She has had no observed apnea, obstructed breathing pattern and snoring during sleep. Respiratory treatment: vest 2 times daily (when she has a cold)--otherwise about once per day She is not using pulmozyme because it has not been prescribed. She is using hypertonic saline 1 times a day with pretreatment with beta agonist. She is not using azithromycin because it was not tolerated. She is not using inhaled tobramycin because it has not been prescribed. She is not using high dose ibuprofen because it has not been prescribed. Gastrointestinal/Nutrition: Rosario's appetite is stable. Her diet is healthy diet in general well balanced. Supplemental nutrition is not indicated at this time . Her enzyme adherence is N/A. She has about 1 stools per day. Stools are formed and hard. Gastroesophageal reflux symptoms includesensation of reflux. She is followed by pediatric GI. Otolaryngology: Rosario has had rhinorrhea, sinus congestion, sinus pressure, sneezing, throat clearing, URI symptoms, nasal congestion, post nasal drip and sore throat. Allergy related symptoms are not present. Sheis not using sinus rinse kits 0 a day. General Health: Her overall behavior has been normal, playful. In regard to activity, she is very active. Rosario has missed 6 days of school due to illness. Environmental Exposure: No interval change since the last visit. Environmental Tobacco Exposure: No REVIEW OF SYSTEMS: Positive for: runny nose, congestion, cough Negative for: fever, chills, malaise, ear pain, shortness of breath, increased work of breathing, tachypnea, wheezing, stridor, exertional symptoms, exercise limitation, vomiting, nausea, diarrhea, headache, cyanosis, pallor A complete review of systems was obtained and was negative except listed above. Past Medical History Diagnosis Date ??? OM (otitis media) ??? Asthma Always rattley per mom ??? Esophageal reflux ??? Unspecified sinusitis (chronic) ??? Allergic conjunctivitis ??? Scoliosis ??? Stomach problems ??? Sleeping difficulty ??? Hearing loss ??? Allergic rhinitis dust mites and tree pollen Past Surgical History Procedure Date ??? Pyloromyotomy [...] Outpatient Prescriptions Marked as Taking for the 05/05/12 encounter (Office Visit) with Rashmi Tabares NP Medication Sig Dispense Refill ??? mometasone (NASONEX) 50 mcg/actuation nasal spray 1 [place] by Nasal route 2 times daily. ??? fluticasone-salmeterol (ADVAIR HFA) 115-21 mcg/actuation inhaler [...] mouth every evening. 30 Tab 6 ??? Ammonium Lactate (LAC-HYDRIN FIVE) 5 % Lotn Apply topically as needed. ??? inhalational spacing device (AEROCHAMBER) Inhale 1 Device as directed daily as needed. 1 Device1 ??? cetirizine (ZYRTEC) 1 mg/mL Soln Take by mouth. 1 tsp qd ??? Multivitamins with Minerals Tab Take 1 [...] ??? Parents status Weekdays ??? Education Grade 2 ??? Reported academic performance Excellent Safety and Environmental Exposures ??? Pets Yes 2 cats at mom; 2 dogs at dad ??? Carpets Yes Objective Data: BP 111/55 Pulse 89 Resp 20 Ht 130.8 cm (51.5) Wt 25.3 kg (55 lb 12.4 oz) BMI 14.79 kg/m2 SpO2 99% Wt Readings from Last 5 Encounters: 05/05/12 25.3 kg (55 lb 12.4 oz) (64.13%*) 05/05/12 25.3 kg (55 lb 12.4 oz) (64.13%*) 12/08/11 24.04 kg (53 lb) (63.79%*) 12/08/11 24.04 kg (53 lb) (63.79%*) 06/26/11 22 kg (48 lb 8 oz) (55.79%*) * Growth percentiles are based on CDC 2-20 Years data. General Appearance: well appearing, alert, no acute distress, cooperative Head: normocephalic, atraumatic Eye: no injection, no discharge, PERRLA Ear: canals clear bilaterally, tympanostomy tubes patent and in proper position Nose: purulent rhinorrhea Mouth\Throat: moist mucosa, posterior pharynx with visible mucus, oropharynx without exudate, erythema or thrush Lymph [...] PFTs: PFTS (Before Albuterol Treatment) FVC (L): 1.76 liters FVC % Pred: 99 FEV1 (L): 1.61 liters FEV 1 % Pred: 101 FEF 25-75% (L/scc): 2.3 FEF 25-75% Pred: 113 FEV-1/FVC: 2 PFTS (After Albuterol Treatment) FVC (L) (After Albuterol): 1.71 liters FVC % Pred (After Albuterol): 96 FEV1 (L) (After Albuterol): 1.64 liters FEV 1 % Pred (After Albuterol): 102 FEF 25-75% (L/scc) (After Albuterol): 2.56 FEF 25-75% Pred (After Albuterol): 126 FEV-1/FVC (After Albuterol): 95 Culture Results: No results found for this or any previous visit. Results for orders placed in visit on 06/18/11 CYSTIC FIBROSIS RESPIRATORY CULTURE, SWAB Component Value Range Specimen Description Throat Result Mod Usual tiff-pharyngeal ana Report Status 06/23/2011 Final Assessment and Plan: Rosario is 6 y.o. old female with who is symptomatic. Spirometry (FEV1) was stable today when compared to baseline without bronchodilator response. We talked at length about both airway clearance andsinus rinses and mother verbalized understanding. We recommended restarting sinus rinses twice daily and hypertonic saline and vest treatments twice daily until symptoms resolve. We also discussed whether or not to start an antibiotic--mother was worried about the holidays, so we agreed to give theantibiotic today. Asthma and Postnasal drip may be exacerbating factor(s). The following plan was discussed with her mother: ?? Continue medications as above ?? Prescription for Cefdinir twice daily x 14 days. ?? Nutrition: Continue current vitamin rx ?? Airway Clearance: continue vest 2 times daily with Hyper Binh twice daily ?? Sinus rinse kits twice daily and work on blowing nose ?? Assessments were performed by Pediatric GI (Dr. Robles)--please see her note for any changes to her GI care. ?? Discussed the following exercise recommendations: 30 min per day and Pre- treat with bronchodilator ?? Studies today include: CF throat swab and spirometry ?? Follow up in 3 months. Seasonal Influenza Vaccine: Already received. Please contact me with questions or concerns regarding Rosario's care. Sincerely, Rashmi Tabares NP documented in this encounter Plan of Treatment Upcoming Encounters Date Type Department Care Team (Late st Contact Info) Description 04/24/2024 15:30 EST Telemedicine [facility] Pediatric Pulmonary - [address] [address] Lucy Rodgers MD [address] [place] [address] documented as of this encounter Procedures Procedure Name Priority Date/Time Associated Diagnosis Comments CYSTIC FIBROSIS RESPIRATORY CULTURE, SWAB Routine 05/05/2012 10:54 EST Immotile cilia syndrome Asthma documented in this encounter Results * CYSTIC FIBROSIS RESPIRATORY CULTURE, SWAB (05/05/2012 10:54 EST) Specimen Description Throat [facility] Result Mod Usual tiff-pharyn geal ana [facility] Report Status 05/10/2012 Final [facility] Specimen of unknown material (specimen) ENTIRE THROAT / Unknown 05/05/2012 10:54 EST 05/05/2012 11:17 EST us Rashmi Tabares HOSPICE OFFICE COORDINATOR MICROBIOLOGY - GENERAL OR DERABLES Final Result Performing Organization Address City/State/[facility] Co de Phone Number [facility] [address] [place] [address] documented in this encounter Visit Diagnoses Diagnosis Immotile cilia syndrome- Primary Situs inversus Asthma Unspecified asthma Gastroesophageal reflux disease Esophageal reflux Unspecified sinusitis (chronic) documented in this encounter Care Teams Hospital Chief Executive Officer Relationship Specialty Start Date End Date Trell Sanon MD [address] [place] [address] [place] [facility] [address] PCP - General 04/10/09 documented as of this encounter
--- OUTSIDE RECORDS SUMMARY | 2024-03-30 21:49 | XMS_ITS | Encounter Summary ---
Author Organization [facility] Address [address] [place] [address] Care Team Providers Care Auto Refinisher Name Role Phone Trell Pittman MD Primary Care Provider [phone] [phone] Reason for Referral * Test (Routine) - Closed Specialty Diagnoses / Procedures [facility] Referred To Contact Pediatric Pulmonology Diagnoses Asthma Procedures SPIROMETRY WITH BRONCHODILATOR [place] EVAL OF BRONCHOSPASM Lucy Rodgers MD Phone: tel: fax: [address] [address] Phone: tel: fax: Referral ID Status Reason Start Date Expiration Date Visits Re quested Visits Authorized [id number] Closed 05/29/2014 1 1 Reason for Visit * Reason Comments Asthma Encounter Details Date Type Department Care Team (Late st Contact Info) Description 05/29/2014 15:30 EST Office Visit [address] [id number] Lucy Rodgers MD [address] [place] [phone] Asthma (Primary Dx); Immotile cilia syndrome Social History Tobacco Use Types Packs/Day Years [...] Sign Reading Time Taken Comments Blood Pressure 113/55 05/29/2014 1536 EST Pulse 78 05/29/2014 1536 EST Temperature - - Respiratory Rate 20 05/29/2014 1536 EST Oxygen Saturation 100% 05/29/2014 1536 EST Inhaled Oxygen Concentration - - Weight 34.3 kg (75 lb 9.9 oz) 05/29/2014 1536 ES T Height 142 cm (4' 7.91) 05/29/2014 1536 EST Body Mass Index 17.01 05/29/2014 1536 EST Body Mass Index Percentile 58.46% 05/29/2014 153 6 EST Growth Chart: [facility] (Girls, 2- 20 Years) documented in this encounter Mental Status * Because of a physical, mental, or emotional condition, do you have serious difficulty concentrating, remembering, or making decisions? (5 years old or older) Answer Entry Date Author Yes 02/13/2010 0:00 AZIZAT Mohit Yusuf RN documented in this encounter Patient Instructions * Patient Instructions* Lucy Rodgers MD - 05/29/2014 16:29 EST Stop Advair Start Symbicort 160-4.5 2 puffs twice daily documented in this encounter Ordered Prescriptions Prescription Sig Dispense Quantity Refills Last Filled Start Date End Date budesonide-formote rol HFA (SYMBICORT) 160-4.5 mcg/actuation HFA aerosol inhaler inhaler Inhale 2 Puffs as directed 2 times daily. 3 Inhaler 3 05/29/2014 5 documented in this encounter Progress Notes * Lucy Rodgers MD - 05/31/2014 8664 EST Images from the original note were not included. Pediatric Pulmonology James Franklin M.D., Hayden Pearce, Lucy Rodgers M.D. [address] [address] Encounter Date: 05/29/[address] [facility] [id number] Chief Complaint: Rosario is a 8 y.o. 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 Rosario is accompanied by her mother and stepfather who contributed to the history. Subjective: Rosario has been doing well since the last visit. She has not had any illnesses. She has occasionalexertional symptoms that are better with pretreatment with albuterol. She has occasional cough at night. They are unsure if she snores. She is having more difficulty with nasal congestion recently. She was seen today by her Concrete Pipe Making Machine Operator and sinus care was changed to rinses with peroxide and baby shampo o daily. She has only been doing the saline rinses about once a week. She spends half her time at her father's house and half with her mom. When she is with her dad she only does the Advair on occasion. She is adherent when she is with her mom. She does her vest 1-2 times a day, including a treatment at school. She expectorates sputum with use of the vest. She is not using they hypertonic saline currenly, for now they would just like to use it for illness or chest congestion. Typical triggers: Infections / Colds, Environmental Allergies, Air Pollution, Dust Mites, Exercise,Cigarette Smoke Classification of Asthma Control: Daytime symptoms: None Nighttime awakenings: Greater than or equal to 2 times/month Interference with normal activity: None Short-acting Beta agonist use for symptom control: Less than or equal to 2 days/week Exacerbations requiring oral systemic corticosteroids: 0-1/year ATAQ Score: 1 Medication Use: Rescue/quick relief medicines: ?? Albuterol MDI. Rosario has needed to use this medication only for exercise Preventive/long-term control: ?? fluticasone-salmeterol (ADVAIR) 115mcg-21mcg Proper use of chamber / mask: Yes Medication Compliance: reportedly adherent at mother's house Respiratory treatment: vest 1-2 times daily She is not using pulmozyme because it has not been prescribed. She is not using hypertonic saline presently. She is not using azithromycin because it was not tolerated. She is not using inhaled tobramycin because it is not indicated. Gastrointestinal/Nutrition: Rosario's appetite is stable. Her diet is healthy diet in general Supplemental nutrition is not indicated at this time . She has about 1 stool per day. Stools are formed. Gastroesophageal reflux symptoms are absent. She has been off of Miralax and lansoprazole. Constipation resolved with eating yogurt. Otolaryngology: Rosario has had sinus congestion. General Health: Her overall behavior has been normal. In regard to activity, she is very active. Environmental Exposure: No interval change since the last visit. Environmental Tobacco Exposure: No REVIEW OF SYSTEMS: Positive for: congestion, cough, exertional symptoms Negative for: fever, chills, malaise, cough, ear pain, shortness of breath, increased work of breathing, tachypnea, wheezing, stridor, exercise limitation, vomiting, nausea, diarrhea, headache, cyanosis, [...] Normal EGD/colonoscopy 01/2011 Past Surgical History Procedure Laterality Date ??? Pyloromyotomy 3 sets of PE tubes ??? Pr bronchoscopy,diagnostic w lavage 02/11/2010 ??? Pr create eardrum opening,gen anesth ??? Adenoidectomy ??? Tympanostomy tube placement ??? Pr bronchoscopy,diagnostic w lavage 02/04/2011 Past Medical and Surgical History was reviewed [...] Outpatient Prescriptions Marked as Taking for the 05/29/14 encounter (Office Visit) with Lucy Rodgers MD Medication Sig Dispense Refill ??? fluticasone-salmeterol (ADVAIR HFA) 115-21 mcg/actuation inhaler Inhale 2 Puffs as directed 2 times daily. 36 g 5 ??? inhalational spacing device (AEROCHAMBER) Inhale 1 Device as directed daily as needed. 1 Device1 ??? montelukast (SINGULAIR) 5 mg chewable tablet Take 1 Tab by mouth every evening. 90 Tab 6 ??? Multivitamins with Minerals Tab Take 1 Tab by mouth three times a week. No Facility-Administered Medications for the 05/29/14 encounter (Office Visit) with Lucy Rodgers MD. Allergies Allergen Reactions ??? Adhesive Tape Other [...] portion of this note. Objective Data BP 113/55 Pulse 78 Resp 20 Ht 142 cm (55.91) Wt 34.3 kg (75 lb 9.9 oz) BMI 17.01 kg/m2 SpO2 100% General Appearance: well appearing, alert, no acute distress, cooperative Head: normocephalic, atraumatic Eye: no injection, no discharge Ear: TMs and canals clear bilaterally Nose: erythema and mucoid discharge Mouth\Throat: moist mucosa, oropharynx without exudate, erythema or thrush, 2-3+ tonsils Lymph Nodes: shotty cervical adenopathy Chest\Lungs: [...] PFT's PFTS (Before Albuterol Treatment) FVC (L): 2.37 liters FVC % Pred: 104 FEV1 (L): 2.16 liters FEV 1 % Pred: 108 FEF 25-75% (L/scc): 2.97 FEF 25-75% Pred: 119 FEV-1/FVC % Pred: 91 PFTS (After Albuterol Treatment) FVC (L) (After Albuterol): 2.35 liters FVC % Pred (After Albuterol): 103 FEV1 (L) (After Albuterol): 2.18 liters FEV 1 % Pred (After Albuterol): 109 FEF 25-75% (L/scc) (After Albuterol): 2.74 FEF 25-75% Pred (After Albuterol): 110 FEV-1/FVC (After Albuterol): 93 Assessment and Plan Rosario is 7 y.o. 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 Spirometry (FEV1) hasimproved to baseline and is without bronchodilator response. She benefits from vest therapy. She ispartially adherent with her Advair and still working on getting the doses at her father's home. Hercontroller medication is changing to Symbicort due to insurance. They have extra Advair inhalers athome and she will bring one to her dad's house to have a maintenance inhaler available there. Her growth continues to be excellent. The following plan was discussed with Rosario and her mother: Continue medications as above Continue asthma action plan - controller medication change to Symbicort 160-4.5 2p BID Airway Clearance: vest 2 times daily 7% hypertonic saline 1-2 times during illness and consider daily use Sinus rinses per Allergy recommendations Discussed the following exercise recommendations: 30 min per day, pretreatment with bronchodilator before heavy activity Studies today include: spirometry Follow up in 2 months. Education / Self Management Goals: Symptomatic treatments reviewed. Patient's condition, differential diagnosis, and Treatment Plan reviewed. Teaching provided for the listed diagnoses and/or medications. Action plan given and discussed. Spacer use discussed. Nebulizer use discussed. Triggers and risk factors discussed. Patient's / Parent's Insight into Illness: good Please feel free to contact us with questions or comments regarding Rosario's care. Sincerely, Lucy Rodgers MD documented in this encounter Plan of Treatment Upcoming Encounters Date Type Department Care Team (Late st Contact Info) Description 04/24/2024 15:30 EST Telemedicine [facility] Pediatric Pulmonary - Main [place] [address] [place] [address] Lucy Rodgers MD [address] [place] [phone] documented as of this encounter Procedures Procedure Name Priority Date/Time Associated Diagnosis Comments PULMONARY FUNCTION REPORT - SCANNED 06/14/2014 7:59 EST CYSTIC FIBROSIS RESPIRATORY CULTURE, SWAB Routine 05/29/2014 16:43 EST Asthma documented in this encounter Results * PULMONARY FUNCTION REPORT - SCANNED (06/14/2014 7:59 EST) 06/14/2014 7:59 EST us Scan 2 Propulsion Generator Repairer PROCEDURE/MINOR SURGICAL OR DERABLES Final Result * CYSTIC FIBROSIS RESPIRATORY CULTURE, SWAB (05/29/2014 16:43 EST) Result Few STAPHYLOCOC CUS AUREUS 06/03/2014 10:10 EST [facility] Result Usual tiff-pharyng eal ana 06/03/2014 10:10 EST [facility] Specimen of unknown material (specimen) SPUTUM / Unknown 05/29/2014 16:43 EST 05/29/2014 17:27 EST Narrative Organism Antibiotic Method Susceptibility Few staphylococcus aureus Susceptibility comment SUSCEPTIBILITY (GARRY) Few staphylococcus aureus Susceptibility comment SUSCEPTIBILITY (GARRY) Susceptible to nafcillin, cephalosporins and other beta lactam antibiotics (mecA gene product absent). Few staphylococcus aureus Oxacillin SUSCEPTIBILITY (GARRY) <=0.25: Susceptible Few staphylococcus aureus Cefazolin SUSCEPTIBILITY (GARRY) Susceptible Few staphylococcus aureus Vancomycin SUSCEPTIBILITY (GARRY) 1: Susceptible Few staphylococcus aureus Erythromycin SUSCEPTIBILITY (GARRY) <=0.25: Susceptible Few staphylococcus aureus Clindamycin SUSCEPTIBILITY (GARRY) 0.25: Susceptible Few staphylococcus aureus Ciprofloxacin SUSCEPTIBILITY (GARRY) <=0.5: Susceptible Few staphylococcus aureus Trimethoprim-Sulfamet hoxazole SUSCEPTIBILITY (GARRY) <=10: Susceptible Lucy Rodgers MD MICROBIOLOGY - GENERAL ORDER DAMIEN Final Result [facility] [address] [place] [address] documented in this encounter Visit Diagnoses Diagnosis Asthma- Primary Unspecified asthma 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
--- OUTSIDE RECORDS SUMMARY | 2024-03-30 21:49 | XMS_ITS | Encounter Summary ---
Author Organization [facility] Address [address] [place] [address] Care Team Providers Care Contact Lens Cutter Name Role Phone Trell Pittman MD Primary Care Provider [phone] Reason for Referral * Test (Routine/Next Available) - Closed Specialty Diagnoses / Procedures Referred By Paula azul Referred To Contact Pediatric Pulmonology Diagnoses Asthma Procedures SPIROMETRY WITH BRONCHODILATOR [place] EVAL OF BRONCHOSPASM James Franklin MD Phone: tel: fax: [facility] [address] [address] Phone: tel: fax: Referral ID Status Reason Start Date Expiration Date Visits Re quested Visits Authorized [id number] Closed 05/05/2012 1 1 Encounter Details Date Type Department Care Team (Late st Contact Info) Description 05/04/2012 Orders Only [facility] [address] [phone] Bushra Castro RN Asthma (Primary Dx) Social History Tobacco Use Types [...] Info) Description 04/24/2024 15:30 EST Telemedicine [facility] Pediatric Pulmonary - Main [place] [address], [place] [phone] Lucy Rodgers MD [address] [place] [phone] documented as of this encounter Visit Diagnoses Diagnosis Asthma- Primary Unspecified asthma documented in this encounter Orders PFT Count Last Ordered Date First Orde red Date SPIROMETRY WITH BRONCHODILATOR 1 05/04/2012 documented in this encounter Care Teams Contact Lens Cutter Relationship Specialty Start Date End Date Trell Pittman MD [address] [place] [address] PCP - General 04/10/09 documented as of this encounter
--- OUTSIDE RECORDS SUMMARY | 2024-03-30 21:49 | XMS_ITS | Encounter Summary ---
Author Organization [facility] Address [address] [place] [address] Care Team Providers Care Street Car Inspector Name Role Phone Trell Pittman MD Primary Care Provider [phone] Reason for Visit * Reason Onset Date Comments Other 01/10/2015 pcp office is re questing copy of Asthma action plan Encounter Details Date Type Department Care Team (Late st Contact Info) Description 01/10/2015 Telephone [facility] Pediatric Pulmonary - [facility] [address] [place] [address] James Franklin MD [address] [place] [phone] Other (pcp office is requesting copy of Asthma action plan) Social History Tobacco Use Types Packs/Day Years [...] Telephone Encounter - Brittany Byrd RN - 01/10/2015 1407 EDT Spoke with Yenifer, explained that since we haven't seen Rosario for 7 months that we need an appointment before giving out an asthma action plan. She said mom was going to call and get an appointmentfor this week so can we just send the one on file. I told her the plan is over 7 months old and nowis void as we don't have an updated physical of patient. We will wait for mom to show for appointment and will issue asthma action plan at that time. * Telephone Encounter - Arin Avila - 01/10/2015 1346 EDT Yenifer is calling from Trell Pittman to request an Asthma Action Plan for Rosario documented in this encounter Plan of Treatment Upcoming Encounters Date Type Department Care Team (Late st Contact Info) Description 04/24/2024 15:30 EST Telemedicine [facility] Pediatric Pulmonary - [facility] [address] [place], [place] [phone] Lucy Rodgers MD [address] [place] [phone] documented as of this encounter Visit Diagnoses Not on filedocumented in this encounter Care Teams Street Car Inspector Relationship Specialty Start Date End Date Tre[place] [address] PCP - General 04/10/09 documented as of this encounter
--- OUTSIDE RECORDS SUMMARY | 2024-03-30 21:49 | XMS_ITS | Encounter Summary ---
Author Organization [facility] Address [address] [place] [address] Care Team Providers Care Director Sales And Trade Marketing Name Role Phone Trell Pittman MD Primary Care Provider [phone] Encounter Details Date Type Department Care Team (Late st Contact Info) Description 01/24/2016 9:10 EDT - 01/24/2016 23:59 EDT Hospital Encounter [facility] Pulmonary Function Lab - [facility] [address], [place] [phone] Jason Mohan MD [address] [place] [phone] Moderate persistent asthma without complication Discharge Disposition: Home or Self Care Social [...] (cough, short of breath). 2 Inhaler 3 01/24/2016 7 albuterol (PROAIR HFA) 90 mcg/actuation inhalerIndication s:Moderate persistent asthma without complication Inhale 2-4 Puffs as directed every 4 hours as needed for Wheezing (cough, short of breath) 1 Inhaler 3 05/24/2015 7 budesonide-formot vini HFA (SYMBICORT) 160-4.5 mcg/actuation HFA aerosol inhaler inhalerIndication s:Moderate persistent asthma without complication Inhale 2 Puffs as directed 2 times daily. 3 Inhaler 5 01/24/2016 7 cetirizine (ZYRTEC) 10 mg tablet Take 1 Tab by mouth daily as needed for Allergies. 30 Tab 5 11/27/2013 7 inhalational spacing device (AEROCHAMBER)Radha cations:Moderate persistent asthma without complication Inhale 1 Device as directed daily. Spacer for MDI 1 Device 3 01/24/2016 7 levalbuterol (XOPENEX HFA) 45 mcg/actuation inhaler Inhale [...] Progress Notes * Amy Maza RT - 01/24/2016 0934 EDT Testing was performed and recorded in [facility]. See complete report in scanned documents. documented in this encounter Plan of Treatment Upcoming Encounters Date Type Department Care Team (Late st Contact Info) Description 04/24/2024 15:30 EST Telemedicine [facility] Pediatric Pulmonary - [facility] [address], [place] [phone] Lucy Rodgers MD [address] [place] [phone] documented as of this encounter Procedures Procedure Name Priority Date/Time Associated Diagnosis Comments PULMONARY FUNCTION REPORT - SCANNED 01/27/2016 7:05 EDT PULMONARY FUNCTION REPORT - SCANNED 01/24/2016 9:52 EDT documented in this encounter Results * PULMONARY FUNCTION REPORT - SCANNED (01/27/2016 7:05 EDT) 01/27/2016 7:05 EDT us Scan 2 School Business Manager PROCEDURE/MINOR SURGICAL OR DERABLES Final Result * PULMONARY FUNCTION REPORT - SCANNED (01/24/2016 9:52 EDT) 01/24/2016 9:52 EDT us Scan 2 School Business Manager PROCEDURE/MINOR SURGICAL OR DERABLES Final Result documented in this encounter Visit Diagnoses Diagnosis Moderate persistent asthma without complication Unspecified asthma documented in this encounter Administered Medications Inactive Administered Medications - up to 3 most recent administrations Medication Order MAR Action Action Date Dose Rate Site albuterol inhaler 2 Puff 2 Puff, inhalation, Once (Without Time Specified), 1 dose, Starting on Wed01/24/16 at 1000, Until Wed01/24/16 at 0934, Routine Given 01/24/2016 9:34 EDT 2 Puffs documented in this encounter Orders Medications Ordered That Janes ht Not Have Been Administered Count Last Ordered Date First Ordered Date albuterol inhaler 2 Puff 1 01/24/2016 documented in this encounter Care Teams Director Sales And Trade Marketing Relationship Specialty Start Date End Date Trell [place] [address] PCP - General 04/10/09 documented as of this encounter
--- OUTSIDE RECORDS SUMMARY | 2024-03-30 21:49 | XMS_ITS | Encounter Summary ---
Author Organization [facility] Address [address] [place] [address] Care Team Providers Care Deal Architect Name Role Phone Trell Sanon MD Primary Care Provider [phone] Reason for Referral * Test (Routine/Next Available) - Closed Specialty Diagnoses / Procedures Referred By Paula azul Referred To Contact Pediatric Pulmonology Diagnoses Asthma Procedures SPIROMETRY WITH BRONCHODILATOR [place] EVAL OF BRONCHOSPASM James Franklin MD Phone: tel: fax: [facility] Pulmonary [address] [address] Phone: tel: fax: Referral ID Status Reason Start Date Expiration Date Visits Re quested Visits Authorized [id number] Closed 12/08/2011 1 1 Reason for Visit * Reason Comments Asthma Gastroesophageal Reflux Encounter Details Date Type Department Care Team (Late st Contact Info) Description 12/08/2011 10:30 EDT Office Visit [facility] Pulmonary [address] [phone] Lucy Teixeira NP Asthma (Primary Dx) Discharge Disposition: Auto Discharge Social [...] Time Taken Comments Blood Pressure 104/57 12/08/2011 1022 EDT Pulse 99 12/08/2011 1022 EDT Temperature - - Respiratory Rate 18 12/08/2011 1022 EDT Oxygen Saturation 98% 12/08/2011 1022 EDT Inhaled Oxygen Concentration - - Weight 24 kg (53 lb) 12/08/2011 1022 EDT Height 127.3 cm (4' 2.12) 12/08/2011 1022 EDT Body Mass Index 14.83 12/08/2011 1022 EDT Body Mass Index Percentile 34.31% 12/08/2011 102 2 EDT Growth Chart: [facility] (Girls, 2- 20 Years) documented in this encounter Mental Status * Because of a physical, mental, or emotional condition, do you have serious difficulty concentrating, remembering, or making decisions? (5 years old or older) Answer Entry Date Author Yes 02/13/2010 0:00 EDT Mohit Yusuf RN documented in this encounter Ordered Prescriptions Prescription Sig Dispense Quantity Refills Last Filled Start Date End Date fluticasone-salmet vini (ADVAIR HFA) 115-21 mcg/actuation inhaler Inhale 2 Puffs as directed 2 times daily. 36 g 5 12/08/2011 3 lactobacillus acidophilus & bulgar (LACTINEX) chewable tablet Take 1 Tab by mouth 3 times daily with meals. 90 Tab 5 12/08/2011 3 documented in this encounter Discharge Disposition Disposition Code Departure Means Destination Auto Discharge documented in this encounter Progress Notes * Lucy Teixeira - 12/08/2011 1114 EDT Pediatric Pulmonology James Franklin M.D., Gene Pearce., Jason Mohan M.D. [address] [address] Encounter Date: 12/08/2011 TRELL SANON MD [address] [place] [address] Chief Complaint: Rosario is a 5 y.o. female who is seen in pulmonary clinic for respiratory symptoms related to asthma and primary ciliary dyskinesia. Rosario is accompanied by her mother who contributed to the history. Subjective: Rosario has had her usual pattern of periods of wellness and then having a respiratory illness needing an antibiotic. Her Mom reports that she has been typically only off antibiotics for two weeks and then needs another, but has gone as much as 6 weeks without. She was most recently on Augmentin for an ear infection. This was associated with stuffy nose and cough. She was ill for about 2 1/2 weeks and has been well now for about a week. She does have some nasal congestion today. She was seen byDr. Lyon this morning who is starting a new eyedrop. They are unsure the name. Rosario is on Nasonex, Singulair and Zyrtec for her allergies. She has not been doing her sinus rinses because they hurt. She will try the baby shampoo rinses. Rosario uses her vest for airway clearance 2 times a day when well and 4 times when ill. She uses hypertonic saline when ill which she feels helps. She has nothad any side effects r/t the hypertonic saline. When she is well she has an intermittent wet cough that can be during the day or night. Rosario is not having any reflux related symptoms. She has had some issues with constipation. Her Mom reports that she and Rosario's Dad are getting and she is with her Dad every other weekend. She sometimes doesn't get her Miralax with her Dad and this affects her bowel movements. She has been complaining of umbilical area discomfort and has had increased flatus. She is not currently taking her lactobacillus. Rosario is enjoying her summer and has been active. She is entering 2nd grade in the fall. Typical triggers: Infections / Colds, Environmental Allergies, Air Pollution, Dust Mites, Exercise,Cigarette Smoke Classification of Asthma Control: Daytime symptoms: Greater than 2 days/week or Multiple times on less than or equal to 2 days/week was sick for 2.5 weeks with a lot of wheezing and coughing but has been doing really well for over a week now Nighttime awakenings: Less than or equal to 1 times/month Interference with normal activity: Some limitation Short-acting Beta agonist use for symptom control: Less than or equal to 2 days/week Exacerbations requiring oral systemic corticosteroids: 0-1/year ATAQ Score: 2 Medication Use: Rescue/quick relief medicines: ?? Albuterol MDI. Rosario has needed to use this medication daily. Preventive/long-term control: ?? fluticasone-salmeterol (ADVAIR) 115mcg-21mcg Proper use of chamber / mask: Yes Medication Compliance: Adherent Gastrointestinal/Nutrition: Appetite is good eater and good. Diet: healthy diet in general Gastroesophageal reflux symptoms are absent . Other abdominal complaints include abdominal pain andconstipation. Otolaryngology: Rosario has had rhinorrhea, nasal congestion and post nasal drip. General Health: Overall behavior and activity has been normal. Exercise: very active Environmental History: There have been no changes to the home environment since the last visit. Environmental Tobacco Exposure: No REVIEW OF SYSTEMS: Positive for: runny nose, congestion, ear pain, chronic cough, abdominal pain, constipation Negative for: lethargy, fever, cough, increased work of breathing, wheezing, stridor, wet burps, reflux, vomiting, nausea A complete review of systems was obtained [...] Outpatient Prescriptions Marked as Taking for the 12/08/11 encounter (Office Visit) with Lucy Teixeira NP Medication Sig Dispense Refill ??? mometasone (NASONEX) 50 mcg/actuation nasal spray 1 Sterling by Nasal route 2 times daily. ??? fluticasone-salmeterol (ADVAIR HFA) 115-21 mcg/actuation inhaler Inhale 2 Puffs as directed 2 times daily. 36 g 5 ??? DISCONTD: ADVAIR HFA 115-21 mcg/actuation inhaler inhale 2 puffs twice a day VIA SPACER 36 g 0 ??? polyethylene glycol (GLYCOLAX) 17 gram/dose powder [...] 4 hours asneeded. 1 Inhaler 6 ??? Ammonium Lactate (LAC-HYDRIN FIVE) 5 [...] ??? Parents status Weekdays ??? Education Grade 1 ??? Reported academic performance Excellent Safety and Environmental Exposures ??? Carpets Yes Social History was reviewed and updated in [employer]. Relevant elements of social history can be found in the environmental exposures portion of this note. Objective Data BP 104/57 Pulse 99 Resp 18 Ht 127.3 cm (50.12) Wt 24.04 kg (53 lb) BMI 14.83 kg/m2 SpO2 98% General Appearance: alert, no acute distress Head: normocephalic, atraumatic Eye: no injection, no discharge, PERRLA Ear: TM's clear bilaterally, canals clear bilaterally Nose: septum midline, pink mucosa, no discharge Mouth\Throat: moist mucosa, oropharynx without exudate, erythema or thrush Lymph Nodes: no lymphadenopathy Chest\Lungs: Air entry is good bilaterally, wheezing is not appreciated, crackles are not appreciated, no retractions, expiratory phase is within normal limits, cough is absent, Abdomen: abdomen is soft, nontender, and nondistended without hepatosplenomegaly or masses and normoactive bowel sounds are present Heart: S1/S2 RRR and no murmur Skin: Warm and dry, Cyanosis is absent MSK:Clubbing is absent Diagnostic Data PFT's PFTS (Before Albuterol Treatment) FVC (L): 1.48 liters FVC % Pred: 89 FEV1 (L): 1.34 liters FEV 1 % Pred: 89 FEF 25-75% (L/scc): 1.79 FEF 25-75% Pred: 92 FEV-1/FVC: 91 PFTS (After Albuterol Treatment) FVC (L) (After Albuterol): 1.62 liters FVC % Pred (After Albuterol): 97 FEV1 (L) (After Albuterol): 1.6 liters FEV 1 % Pred (After Albuterol): 106 FEF 25-75% (L/scc) (After Albuterol): 2.57 FEF 25-75% Pred (After Albuterol): 133 FEV-1/FVC (After Albuterol): 98 X-rays: No x-rays were reviewed during this encounter Assessment and Plan Rosario is a 5 y.o. Female with asthma, primary ciliary dyskinesia, reflux and allergies who is currently off antibiotics following a two week illness. She is ill frequently. Rosario has an intermittent, wet daily cough which is her baseline. Spirometry today showed an FEV1 below her baseline with a moderate bronchodilator response. This could be attributed to her recent illness. She is compliantwith all medications and treatments. She currently only uses nebulized hypertonic saline when she is sick, so we discussed using this once daily for adjunctive airway clearance. She is also having some abdominal pain and increased flatus. I recommended restarting her Lactobacillus. She has an appoin tment with GI today as well and they may have further recommendations. Rosario's Mom was given the phone number for [employer] as she has some questions regarding the vest settings. Rosario should continue all current medications and airway clearance and we will plan to see her back in three months along with the other specialists she sees regularly. The following plan was discussed with Rosario and her Mother: -Continue Advair 115/21 mcg 2 puffs bid-reordered -Xopenex two puffs as needed and before vest treatments -7% hypertonic saline daily -Restart Lactobacillus-reordered -Return to pulmonary clinic in three months. Call sooner if any concerns. Please feel free to contact us with questions or comments regarding Rosario's care. Sincerely, Lucy Teixeira NP documented in this encounter Procedure Notes * MOTOR ASSEMBLER, SCAN 2 - 12/21/2011 1438 EDTAssociated Order(s): PULMONARY FUNCTION LAB REPORT - SCANNED documented in this encounter Plan of Treatment Upcoming Encounters Date Type Department Care Team (Late st Contact Info) Description 04/24/2024 15:30 EST Telemedicine [facility] Pediatric Pulmonary - Main [address] [address] Lucy Rodgers MD [address] [place] [phone] documented as of this encounter Procedures Procedure Name Priority Date/Time Associated Diagnosis Comments PULMONARY FUNCTION REPORT - SCANNED 12/21/2011 14:38 EDT documented in this encounter Results * PULMONARY FUNCTION LAB REPORT - SCANNED (12/21/2011 14:38 EDT) 12/21/2011 14:3 8 EDT Narrative Transcriptions MOTOR ASSEMBLER, SCAN 2 - 12/21/2011 14:38 EDT us Scan 2 Real Estate Broker Associate PROCEDURE/MINOR SURGICAL OR DERABLES Final Result documented in this encounter Visit Diagnoses Diagnosis Asthma- Primary Unspecified asthma documented in this encounter Discontinued Medications Medication Sig Discontinue Reason Start Date End Da te ADVAIR HFA 115-21 mcg/actuation inhaler inhale 2 puffs twice a day VIA SPACER Reorder 12/06/2011 12/08/2011 documented as of this encounter Historical Medications * This list may reflect changes made after this encounter. mometasone (NASONEX) 50 mcg/actuation nasal spray 1 Sterling by Nasal route 2 times daily. 01/24/2016 added in this encounter Orders PFT Count Last Ordered Date First Orde red Date SPIROMETRY WITH BRONCHODILATOR 1 12/07/2011 documented in this encounter Care Teams Deal Architect Relationship Specialty Start Date End Date Trell Sanon MD [address] [place] [address] [place] [address] PCP - General 04/10/09 documented as of this encounter
--- OUTSIDE RECORDS SUMMARY | 2024-03-30 21:49 | XMS_ITS | Encounter Summary ---
Author Organization [facility] Address [address] [place] [address] Care Team Providers Care Traffic And Transport Planner Name Role Phone Trell Pittman MD Primary Care Provider [phone] Encounter Details Date Type Department Care Team (Late st Contact Info) Description 02/17/2012 Orders Only [address] [phone] Bushra Castro RN Asthma Social History Tobacco Use Types Packs/Day Years [...] Contact Info) Description 04/24/2024 15:30 EST Telemedicine [address] [address] Lucy Rodgers MD [address] [place] [phone] documented as of this encounter Visit Diagnoses Diagnosis Asthma Unspecified asthma documented in this encounter Orders PFT Count Last Ordered Date First Orde red Date SPIROMETRY WITH BRONCHODILATOR 1 02/17/2012 documented in this encounter Care Teams Traffic And Transport Planner Relationship Specialty Start Date End Date Trell Pittman MD [address] [place] [address] PCP - General 04/10/09 documented as of this encounter
--- OUTSIDE RECORDS SUMMARY | 2024-03-30 21:49 | XMS_ITS | Encounter Summary ---
Author Organization [facility] Address [address] [place] [address] Care Team Providers Care Core Manager Name Role Phone Trell Pittman MD Primary Care Provider [phone] Reason for Visit * Reason Comments Asthma Encounter Details Date Type Department Care Team (Late st Contact Info) Description 05/24/2015 8:00 EST Office Visit [facility] Pediatric Pulmonary - [facility] [address] [place] [address] Jason Mohan MD [address] [place] [address] Cough (Primary Dx); Diarrhea; Moderate persistent asthma without complication Social History [...] Sign Reading Time Taken Comments Blood Pressure 126/61 05/24/2015 08 EST Pulse 110 05/24/2015 0812 EST Temperature - - Respiratory Rate 20 05/24/2015 08 EST Oxygen Saturation 98% 05/24/2015 08 EST Inhaled Oxygen Concentration - - Weight 36 kg (79 lb 5.9 oz) 05/24/2015 08 EST Height 149.3 cm (4' 10.78) 05/24/2015 0812 EST Body Mass Index 16.15 05/24/2015 0812 EST Body Mass Index Percentile 33.34% 05/24/2015 081 2 EST Growth Chart: [facility] (Girls, 2- 20 Years) documented in this encounter Mental Status * Because of a physical, mental, or emotional condition, do you have serious difficulty concentrating, remembering, or making decisions? (5 years old or older) Answer Entry Date Author Yes 02/13/2010 0:00 EDT Mohit Yusuf RN documented in this encounter Patient Instructions * Patient Instructions* Jsaon Mohan MD - 05/24/2015 8:51 EST Images from the original note were not included. Pediatric Pulmonology James Franklin M.D., Hayden Pearce, Lucy Rodgers M.D, Jason Mohan M.D. [address] [address] 05/24/2015 Diagnoses and all orders for this visit: Cough Begin Augmentin for 2 weeks. Please call if not better or if she gets worse. Please use acapella twice a day and the vest once a day. Diarrhea Begin culturelle once a day. Continue all other medications. Please follow up in 3 months. These are her are her current medications: Current Outpatient Prescriptions Medication Sig Dispense Refill ??? albuterol (PROAIR HFA) 90 mcg/actuation inhaler Inhale 2-4 Puffs as directed every 4 hours as needed for Wheezing (cough, short of breath) 1 Inhaler 3 ??? Ammonium Lactate (LAC-HYDRIN FIVE) 5 % Lotn Apply topically as needed. ??? amoxicillin-clavulanate (AUGMENTIN ES-600) 600-42.9 mg/5 mL ES suspension Take 12 mL by mouth 2times daily for 14 days 336 mL 0 ??? budesonide-formoterol HFA (SYMBICORT) 160-4.5 mcg/actuation HFA aerosol inhaler inhaler Inhale 2 Puffs as directed 2 times daily 3 Inhaler 3 ??? cetirizine (ZYRTEC) 10 mg tablet Take 1 Tab by mouth daily as needed for Allergies. 30 Tab 5 ??? inhalational spacing device (AEROCHAMBER) Inhale 1 Device as directed daily as needed. 1 Device1 ??? lactobacillus rhamnosus, GG, (CULTURELLE) 10 billion cell capsule Take 1 Cap by mouth daily 90 Cap 5 ??? levalbuterol (XOPENEX HFA) 45 mcg/actuation inhaler Inhale 2 Puffs as directed every 4 hours asneeded. 1 Inhaler 6 ??? mometasone (NASONEX) 50 mcg/actuation nasal spray 1 Atwood by Nasal route 2 times daily. ??? montelukast (SINGULAIR) 5 mg chewable tablet Take 1 Tab by mouth every evening 90 Tab 6 ??? sodium chloride 7 % solution for nebulization Take 4 mL by nebulization 2 times daily 60 Ampule5 No current facility-administered medications for this visit. documented in this encounter Ordered Prescriptions Prescription Sig Dispense Quantity Refills Last Filled Start Date End Date albuterol (PROAIR HFA) 90 mcg/actuation inhalerIndications :Moderate persistent asthma without complication Inhale 2-4 Puffs as directed every 4 hours as needed for Wheezing (cough, short of breath) 1 Inhaler 3 05/24/2015 7 lactobacillus rhamnosus, GG, (CULTURELLE) 10 billion cell capsuleIndications :Diarrhea Take 1 Cap by mouth daily 90 Cap 5 05/24/2015 6 amoxicillin-clavul anate (AUGMENTIN ES-600) 600-42.9 mg/5 mL ES suspensionIndicati ons:Cough Take 12 mL by mouth 2 times daily for 14 days 336 mL 0 05/24/2015 6 documented in this encounter Progress Notes * Jason Mohan MD - 05/24/2015 0829 EST Images from the original note were not included. Pediatric Pulmonology James Franklin M.D., Gene Pearce., Lucy Rodgers M.D, Jason Mohan M.D. [address] [address] Encounter Date: 05/24/2015 Trlel Hurtado Toya [address] [place] [address] DR [facility] [facility] [id number] Chief Complaint: Rosario is a 9 y.o. 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 Subjective: Rosario has had a flu like illness that began last week. She started with runny nose and congestion that developed into cough. The cough is described as a juicy cough and has become veneer redrier. Overall, mom reported that the cough has become persistent over the last week. The cough is worse when shelies down. She has had some chest pain from coughing. She has not had chest tightness. Mom reportedthat she heard slight inspiratory stridor last night that resolved quickly with albuterol. Recently, she has been using albuterol 3 times a day for the last week. Mom reported that it helps most of the time. She has not been on steroids or antibiotics for this illness so far. This is her first illness since her last visit. Mom reported that before this illness Rosario did not have nocturnal cough, exertional wheezing or daytime symptoms. She has not been on antibitoics orsteroids since the last visit with Dr. Rodgers. She has not been seen in the ED since the last visit. She has not been admitted for respiratory symptoms since the last visit. Typical triggers include Infections / Colds, Environmental Allergies, Air Pollution, Dust Mites, Exercise, Cigarette Smoke. Medication Use: Rescue/quick relief medicines: ?? albuterol MDI 2 puffs Rosario has needed to use this medication a few times a day. She has not needed steroids since the last visit. She has not needed antibiotics since the last visit. Preventive/long-term control: ?? budesonide-formoterol (SYMBICORT HFA) 160mcg-4.5mcg 2 inhalations twice daily ?? montelukast (SINGULAIR CHEWABLE TABLET) 5mg by mouth daily Medication adherence: good Proper spacer device and technique: Yes AIRWAY CLEARANCE: She uses the vest once a day at school. She uses acapella intermittently. She was supposed to be taking hypertonic saline once a day, but mom is using it as needed - which is hardly at all per mom. Gastrointestinal/Nutrition: Appetite is good. Diet: healthy diet in general Gastroesophageal reflux symptoms are absent . She has had diarrhea for a few months. The stool is not bloody. She is not having belly pain. It is not associated with antibiotics or anything else mom can remembers. She has not had constipation and melena/black stool. Otolaryngology: Rosario has had runny nose and congestion for the last week as mentioned above. Mom feels that it is staying the same. Prior to this illness, she had mild nasal congestion without sneezing, itchy eyes, or rhinorrhea. She has not had sinus pain or pressure. Neuro/Sleep: She has had snoring during sleep, but has not had apnea.. General Health: Overall behavior and activity has been normal. Normal exercise level: moderately active Rosario has missed 3 days of school due to illness. She has not had decrease in energy, chills and night sweats. Environmental History: reports that she has never smoked. She does not have any smokeless tobacco history on file. REVIEW OF SYSTEMS: A review of 10 systems was obtained and [...] environment ??? Food Intolerance Brother lactose ??? *Other(comment) Paternal Grandfather diverticulitis ??? Diarrhea Maternal Grandmother ??? High Cholesterol Maternal Grandmother ??? Celiac Disease Other Outpatient Prescriptions Marked as Taking for the 05/24/15 encounter (Office Visit) with Jason Mohan MD Medication Sig Dispense Refill ??? albuterol (PROAIR HFA) 90 mcg/actuation inhaler Inhale 2-4 Puffs as directed every 4 hours as needed for Wheezing (cough, short of breath) 1 Inhaler 3 ??? budesonide-formoterol HFA (SYMBICORT) 160-4.5 mcg/actuation HFA aerosol inhaler inhaler Inhale 2 Puffs as directed 2 times daily 3 Inhaler 3 ??? cetirizine (ZYRTEC) 10 mg tablet Take 1 Tab by mouth daily as needed for Allergies. 30 Tab 5 ??? inhalational spacing device (AEROCHAMBER) Inhale 1 Device as directed daily as needed. 1 Device1 ??? mometasone (NASONEX) 50 mcg/actuation nasal spray 1 [place]wood by Nasal route 2 times daily. ??? montelukast (SINGULAIR) 5 mg chewable tablet Take 1 Tab by mouth every evening 90 Tab 6 ??? sodium chloride 7 % solution for nebulization Take 4 mL by nebulization 2 times daily 60 Ampule5 Allergies Allergen Reactions ??? Adhesive Tape Other [...] portion of this note. Objective Data BP 126/61 mmHg Pulse 110 Resp 20 Ht 149.3 cm (58.78) Wt 36 kg (79 lb 5.9 oz) BMI 16.15 kg/m2 SpO2 98% General Appearance: alert, no acute distress Head: normocephalic, atraumatic Eye: no injection, no discharge, PERRLA Ear: TM's clear bilaterally, canals clear bilaterally Nose: Copious rhinorrhea bilaterally, nasal mucosa was edematous and erythematous Mouth\Throat: moist mucosa, oropharynx without exudate, erythema or thrush Lymph Nodes: no lymphadenopathy Chest\Lungs: Air entry is good bilaterally, wheezing is not appreciated, crackles are not appreciated, no retractions, expiratory phase is within normal limits, cough is absent, forced expiratory maneuvers are normal Abdomen: abdomen is soft, nontender, and nondistended without hepatosplenomegaly or masses and normoactive bowel sounds are present Heart: S1/S2 RRR and no murmur Skin: Warm and dry, Cyanosis is absent MSK:Clubbing is absent Diagnostic Data PFT's PFTS (Before Albuterol Treatment) FVC (L): 2.6 liters FVC % Pred: 106 FEV1 (L): 2.36 liters FEV 1 % Pred: 110 FEF 25-75% (L/scc): 3.01 FEF 25-75% Pred: 116 FEV-1/FVC % Pred: 103 PFTS (After Albuterol Treatment) FVC (L) (After Albuterol): 2.58 liters FVC % Pred (After Albuterol): 105 FEV1 (L) (After Albuterol): 2.38 liters FEV 1 % Pred (After Albuterol): 111 FEF 25-75% (L/scc) (After Albuterol): 2.92 FEF 25-75% Pred (After Albuterol): 113 FEV-1/FVC (After Albuterol): 92 Spirometry Interpretation: Spirometry did not show airflow obstruction and was similar to her previous FEV1. 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 She had been well until one week ago when she developed runny nose, congestion and increasing what cough. She has also had diarrhea over the last several months. Immotile cilia syndrome: Rosario appears to have a cough that is related to a recent cold further exacerbated by her immotile cilia syndrome likely representing bronchitis. Her symptoms were not present for over a week indicating that antibiotics are now indicated. Her mother reported that Augmentin is the best antibiotic for treating her symptoms in the past. I cautioned that this medicine may actually cause her diarrhea to worsen. Mother stated that Augmentin tends to do the opposite and cause constipation. Adherence to airway clearance therapies is suboptimal at this time. She is getting vest once a day of school. She is not using Acapella on a regular basis. I emphasized to mother and to Rosario the importance of regular airway clearance especially during periods of exacerbation. Both mother and Rosario demonstrated verbal understanding of this. - Augmentin for 2 weeks - Airway clearance 3-4 times a day using vest, manual percussion or Acapella - Mother to call if her symptoms worsen or do not improve in this 2 week span of time. If her symptoms do not improve, I would consider reevaluation and/or admission. If her symptoms do improve, she will continue airway clearance at least twice a day using vest or Acapella. - Discuss further genetic testing with Dr. Rowe because there is a new genetic testing panel for PCD/Ciliopathies out. Asthma: Rosario's symptom control has been good. She has not had wheezing, dry nocturnal cough, exertional symptoms or limitations or daytime symptoms of dry cough, chest pain or chest tightness. Adherence is good with her asthma medicines by mother's report. FEV1 was stable today. ?? Preventative Medications: ?? budesonide-formoterol (SYMBICORT HFA) 160mcg-4.5mcg 2 inhalations twice daily ?? montelukast (SINGULAIR CHEWABLE TABLET) 5mg by mouth daily ?? Rescue Medications: ?? Yellow Zone: albuterol MDI 2 puffs ?? Red Zone: albuterol MDI 4 puffs ?? Exercise Pre-treatment: ?? Symptomatic treatments reviewed. ?? Patient's condition, differential diagnosis, and Treatment Plan reviewed. ?? Teaching provided for the listed diagnoses and/or medications. ?? Spacer use discussed. ?? Follow up if symptoms persist, increase, or as instructed. ?? Seasonal Influenza Vaccine: Already received. Diarrhea She has had diarrhea for the last several months. This may be secondary to recurrent antibiotic use. I prescribed Culturelle to be given over the next several weeks especially while she is on antibiotics that are prescribed today. If it persists, we will need to expand workup for diarrhea. ?? Culturelle I discussed the treatment plan with her mother. Enrollment in [facility]: Reviewed. Patient will enroll at home. Return to clinic in 3 months. Please feel free to contact us with questions or comments regarding Rosario's care. Sincerely, Jason Mohan MD Pediatric Pulmonology documented in this encounter Plan of Treatment Upcoming Encounters Date Type Department Care Team (Late st Contact Info) Description 04/24/2024 15:30 EST Telemedicine [facility] Pediatric Pulmonary - [address] [address] Lucy Rodgers MD [address] [place] [phone] documented as of this encounter Visit Diagnoses Diagnosis Cough- Primary Diarrhea Moderate persistent asthma without complication Unspecified asthma documented in this encounter Discontinued Medications Medication Sig Discontinue Reason Start Date End Da te cetirizine (ZYRTEC) 1 mg/mL Soln Take by mouth. 1 tsp qd 05/24/2015 fluticasone-salmeterol (ADVAIR HFA) 115-21 mcg/actuation inhaler Inhale 2 Puffs as directed 2 times daily. 11/27/2013 05/24/2015 Multivitamins with Minerals Tab Take 1 Tab by mouth three times a week. 05/24/2015 polyethylene glycol (GLYCOLAX) 17 gram/dose powder Take 17 g by mouth daily. 08/08/2012 05/24/2015 lactobacillus rhamnosus, GG, (CULTURELLE) 10 billion cell capsule Take 1 Cap by mouth daily. Reorder 08/08/2012 05/24/2015 albuterol (PROAIR HFA) 90 mcg/actuation inhaler Inhale 2-4 Puffs as directed every 4 hours as needed for Wheezing (cough, short of breath) Reorder 03/22/2015 05/24/2015 documented as of this encounter Care Teams Core Manager Relationship Specialty Start Date End [place] [address] PCP - General 04/10/09 documented as of this encounter
--- OUTSIDE RECORDS SUMMARY | 2024-03-30 21:49 | XMS_ITS | Encounter Summary ---
Author Organization [facility] Address [address] [place] [address] Care Team Providers Care Deputy Coroner Name Role Phone Trell Pittman MD Primary Care Provider [phone] Reason for Visit * Reason Comments Follow-up Encounter Details Date Type Department Care Team (Late st Contact Info) Description 02/06/2013 11:15 EDT Office Visit [facility] ENT- Main [address] [address] Felix Spears MD [address] [place] [address], [address] [place] [address] Unspecified chronic suppurative otitis media (Primary Dx); Simple or unspecified chronic serous otitis media Discharge Disposition: Auto Discharge Social History Tobacco [...] Yusuf RN documented in this encounter Discharge Disposition Disposition Code Departure Means Destination Auto Discharge documented in this encounter Progress Notes * Felix Spears MD - 02/06/2013 1205 EDT CHIEF COMPLAINT: Recurrent otitis media, chronic serous otitis media. HISTORY OF PRESENT ILLNESS: The patient has had no ear infections since last visit. She has had 2 or 3 upper respiratory infections, mild to moderate in nature, lasting for 4 to 5 days, not resultingin ear symptoms including pain, fever or drainage. She has had a mild upper respiratory infection over the past 4 to 5 days. She has had no ear drainage or pain. OBJECTIVE: Alert, cooperative 7 year old well nourished in no distress. Voice is normal today. Headand face inspection and palpation are both normal. Salivary glands are normal today. Facial strength is normal today. External ear, nose all normal today. Eyes are normal today. Otoscopy: Ear canals,eardrums and middle ear spaces are normal bilaterally. There are functioning tubes on both sides wit hout infection or drainage. Nose: Midline septum, congested turbinates and a mucoid nasal discharge, worse on the right side today. Lips, teeth and gums all normal for her age. Oral cavity, oropharynx are normal today. She has a bit of a cough today. Palpation of the neck reveals no adenopathy or masses. The thyroid is not palpable today. ASSESSMENT: Upper respiratory infection, normal tube check, recurrent otitis media, chronic serous otitis media. PLAN: Follow up June for possible tube removal. It will be 3 years in this coming June. documented in this encounter Plan of Treatment Upcoming Encounters Date Type Department Care Team (Late st Contact Info) Description 04/24/2024 15:30 EST Telemedicine [facility] Pediatric Pulmonary - Main [address] [address] Lucy Rodgers MD [address] [place] [phone] documented as of this encounter Visit Diagnoses Diagnosis Unspecified chronic suppurative otitis media- Primary Simple or unspecified chronic serous otitis media documented in this encounter Care Teams Deputy Coroner Relationship Specialty Start Date End Date Trell Pittman MD [address] [place] [address] [place] [address] PCP - General 04/10/09 documented as of this encounter
--- OUTSIDE RECORDS SUMMARY | 2024-03-30 21:49 | XMS_ITS | Encounter Summary ---
Author Organization [facility] Address [address] [place] [address] Care Team Providers Care Pipefitter Welder Name Role Phone Trell Pittman MD Primary Care Provider [phone] Reason for Visit * Reason Comments Asthma Breathing Problem Encounter Details Date Type Department Care Team (Late st Contact Info) Description 11/27/2013 10:30 EDT Office Visit [facility] Pediatric Pulmonary - Main [place] [address] [place] [address] Rashmi Tabares, DOCTOR OF NURSE ANESTHESIA [address] [place] [phone] Lucy Rodgers MD [address] [place] [phone] Asthma (Primary Dx); Immotile cilia syndrome; Allergic rhinitis Social History Tobacco Use Types Packs/Day [...] Sign Reading Time Taken Comments Blood Pressure 109/57 11/27/2013 1004 EDT Pulse 93 11/27/2013 1004 EDT Temperature - - Respiratory Rate 24 11/27/2013 1004 EDT Oxygen Saturation 100% 11/27/2013 1004 EDT Inhaled Oxygen Concentration - - Weight 31.6 kg (69 lb 10.7 oz) 11/27/2013 1004 E DT Height 140.1 cm (4' 7.16) 11/27/2013 1004 EDT Body Mass Index 16.1 11/27/2013 1004 EDT Body Mass Index Percentile 46.97% 11/27/2013 100 4 EDT Growth Chart: [facility] [...] for Allergies. 30 Tab 5 11/27/2013 7 sodium chloride 7 % Solution for Nebulization Take 4 mL by nebulization 2 times daily. 60 Ampule 5 11/27/2013 5 montelukast (SINGULAIR) 5 mg chewable tablet Take 1 Tab by mouth every evening. 30 Tab 6 11/27/2013 4 albuterol (PROAIR HFA) 90 mcg/actuation inhaler Inhale 2-4 Puffs as directed every 4 hours as needed for Wheezing (cough, short of breath). 1 Inhaler 3 11/27/2013 5 fluticasone-salme terol (ADVAIR HFA) 115-21 mcg/actuation inhaler Inhale 2 Puffs as directed 2 times daily. 36 g 5 11/27/2013 6 documented in this encounter Progress Notes * Lucy Rodgers MD - 11/27/2013 1034 EDT Images from the original note were not included. Pediatric Pulmonology James Franklin M.D., Gene Pearce., Lucy Rodgers M.D. [address] [address] Encounter Date: 11/27/2013 [place] [address] Chief Complaint: Rosario is a 7 y.o. 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 Rosario is accompanied by her mother who contributed to the history. Subjective: Rosario has had allergy symptoms and chronic cough. 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 She says a venom test is planned due to a suspected insect sting allergy.She says that something at her father's house is bothering her. A month ago, her father called her mother at 1 am to come and get her. It was a hot and humid day and she developed severe cough, vomiting, and asthma exacerbation. This has now happened a couple of times at her father's home and has ended up being treated by her mother. Proair has helped relieve her cough and shortness of breath with these episodes. She has had OM and antibiotics 3-4 times recently. With 2 of them she had spontaneous bleeding. Shehas not had any sinus infections. Her breathing has been rattlely in the last month. She has sporadic cough both day and night. She also has exertional cough and dyspnea. She has been snoring a little for the past 6 months. Her parents in the last year. Rosario's mother complains that Rosario's father no longer gives her medications or airway clearance. He only gives her the montelukast. She says that he used to adhere to the treatment plan, but his girlfriend is not allowing any other medications or preventive treatments to be given and also says that the girlfriend says that Rosario is faking and there is nothing wrong with her and therefore does not need medications. Rosario spends 2 nights per week and every other weekend (Wed-Wed) with her father. She spends 2 weeks per year with him on vacation.She says the custody arrangement is about 51% with her and 49% with her father. At her mother's home she does vest twice daily or manual CPT since there have been problems with the vest. She is not doing any hypertonic saline. She gets the Advair at her mother's house. Typical triggers: Infections / Colds, Environmental Allergies, Air Pollution, Dust Mites, Exercise,Cigarette Smoke Classification of Asthma Control: Daytime symptoms: Less than or equal to 2 days/week (but not more than once each day) Nighttime awakenings: None Interference with normal activity: None Short-acting Beta agonist use for symptom control: Less than or equal to 2 days/week Exacerbations requiring oral systemic corticosteroids: 0-1/year ATAQ Score: 2 Medication Use: Rescue/quick relief medicines: ?? Albuterol MDI. Rosario has needed to use this medication less than 2x/week and with colds. Preventive/long-term control: ?? fluticasone-salmeterol (ADVAIR) 115mcg-21mcg Proper use of chamber / mask: Yes Medication Compliance: reportedly adherent at mother's house Respiratory treatment: vest 2 times daily (doing at mother's house) She is not using pulmozyme because it [...] with eating yogurt. Otolaryngology: Rosario has had no recent sinusitis. [...] REVIEW OF SYSTEMS: Positive for: congestion, cough, rattlely breathing, exertional symptoms Negative for: fever, chills, malaise, runny nose, [...] Outpatient Prescriptions Marked as Taking for the 11/27/13 encounter (Office Visit) with Lucy Rodgers MD Medication Sig Dispense Refill ??? Ammonium Lactate (LAC-HYDRIN FIVE) 5 % Lotn Apply topically as needed. ??? fluticasone-salmeterol (ADVAIR HFA) 115-21 mcg/actuation inhaler Inhale 2 Puffs as directed 2 times daily. 36 g 5 ??? inhalational spacing device (AEROCHAMBER) Inhale 1 Device as directed daily as needed. 1 Device1 ??? montelukast (SINGULAIR) 5 mg chewable tablet Take 1 Tab by mouth every evening. 30 Tab 6 ??? Multivitamins with Minerals Tab Take 1 Tab by mouth three times a week. ??? sodium chloride 7 % Solution for Nebulization Take 4 mL by nebulization 2 times daily. 60 Ampule 5 No Facility-Administered Medications for the 11/27/13 encounter (Office Visit) with Lucy Rodgers MD. [...] portion of this note. Objective Data BP 109/57 Pulse 93 Resp 24 Ht 140.1 cm (55.16) Wt 31.6 kg (69 lb 10.7 oz) BMI 16.1 kg/m2 SpO2 100% General Appearance: well appearing, alert, no acute distress, cooperative Head: normocephalic, atraumatic Eye: no injection, no discharge Ear: canals clear bilaterally, tympanostomy tubes in place Nose: erythema and mucoid discharge Mouth\Throat: moist mucosa, oropharynx without exudate, erythema or thrush, 2+ tonsils Lymph Nodes: shotty cervical adenopathy Chest\Lungs: Air entry is good bilaterally, transient coarse expiratory noise that clears with coughing, wheezing is not appreciated, crackles are not appreciated, no retractions, expiratory phase iswithin normal limits, cough is present Abdomen: abdomen is soft, nontender, and nondistended without hepatosplenomegaly or masses and normoactive bowel sounds are present Heart: S1/S2 RRR and no murmur Skin: Warm and dry, Cyanosis is absent MSK:Clubbing is absent Diagnostic Data PFT's PFTS (Before Albuterol Treatment) FVC (L): 2.05 liters FVC % Pred: 94 FEV1 (L): 1.8 liters FEV 1 % Pred: 94 FEF 25-75% (L/scc): 2.04 FEF 25-75% Pred: 85 FEV-1/FVC % Pred: 100 PFTS (After Albuterol Treatment) FVC (L) (After Albuterol): 2.16 liters FVC % Pred (After Albuterol): 99 FEV1 (L) (After Albuterol): 1.99 liters FEV 1 % Pred (After Albuterol): 104 FEF 25-75% (L/scc) (After Albuterol): 2.4 FEF 25-75% Pred (After Albuterol): 100 FEV-1/FVC (After Albuterol): 104 Assessment and Plan Rosario is 7 y.o. 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 Spirometry (FEV1) revealed FEV1 >12% below her previous prebronchodilator testing with bronchodilator response. Her symptoms have increased and has evidence of inc reased secretions on examination. I wrote a general letter for caregivers and school explaining why Rosario takes medications and requires airway clearance as preventive therapy even though she appears well. Today her spirometry showed a significant decline in FEV1, her exam is abnormal, and she remains symptomatic with cough and exertional symptoms as well as allergic symptoms. This is objective evidence of poor asthma control and increased secretions even though she doesn't appear sick. She should respond well to adherence to therapy (both medications and airway clearance) at both homes. I recommend restarting the hypertonic saline to help with her secretions. Her growth continues to be excellent. The following plan was discussed with Rosario and her mother: Continue medications as above Airway Clearance: recommend vest 2 times daily (can do one treatment at school when school resumes). [employer] Vest number given to mother per her request to assist with maintenance of vest Restart 7% hypertonic saline 1-2 times daily Sinus rinse kits once or twice daily Discussed the following exercise recommendations: 30 min per day, pretreatment with bronchodilator before heavy activity Asthma Action Plan given today. Rosario's mother has the ability to give the Advair in the morningseven on days she doesn't have Rosario. While this is not ideal, it is better than receiving none until adherence is established at the father's home. When school resumes it is reasonable for her to receive medications there. Studies today include: spirometry I recommended counseling for Rosario given the obvious family stress and mixed messages she receives about her medical treatment. Her mother agreed and says she will approval from Rosario's father Follow up in 2 months. I strongly recommended her mother maintain regular followup appointments here for Rosario, given her poor control of symptoms and abnormal lung function. Her last appointment was a year ago and she has been very symptomatic. Seasonal Influenza Vaccine: recommended for this fall. Education / Self Management Goals: Symptomatic treatments [...] regarding Rosario's care. Sincerely, Lucy Rodgers MD I spent a total of 60 minutes in face to face time with this patient today and 45 minutes of that time was spent counseling the patient on the risks and treatment options for asthma and ciliary dyskinesia. Lucy Rodgers MD documented in this encounter Plan of Treatment Upcoming Encounters Date Type Department Care Team (Late st Contact Info) Description 04/24/2024 15:30 EST Telemedicine [facility] Pediatric Pulmonary - [address] [id number] Lucy Rodgers MD [address] [place] [phone] documented as of this encounter Visit Diagnoses Diagnosis Asthma- Primary Unspecified asthma Immotile cilia syndrome Situs inversus Allergic rhinitis Allergic rhinitis, cause unspecified documented in this encounter Discontinued Medications Medication Sig Discontinue Reason Start Date End Da te fluticasone-salmeterol (ADVAIR HFA) 115-21 mcg/actuation inhaler Inhale 2 Puffs as directed 2 times daily. Reorder 02/06/2013 11/27/2013 montelukast (SINGULAIR) 5 mg chewable tablet Take 1 Tab by mouth every evening. Reorder 03/18/2011 11/27/2013 sodium chloride 7 % Solution for Nebulization Take 4 mL by nebulization 2 times daily. Reorder 02/06/2013 11/27/2013 documented as of this encounter Care Teams Pipefitter Welder Relationship Specialty Start Date End Date Trell Pittman MD [address] [place] [address] [place] [address] PCP - General 04/10/09 documented as of this encounter
--- OUTSIDE RECORDS SUMMARY | 2024-03-30 21:49 | XMS_ITS | Encounter Summary ---
Author Organization [facility] Address [address] [place] [address] Care Team Providers Care Social Media Designer Name Role Phone Trell Sanon MD Primary Care Provider [phone] Reason for Referral * Test (Routine/Next Available) - Closed Specialty Diagnoses / Procedures Referred By Paula azul Referred To Contact Pediatric Pulmonology Diagnoses Asthma Immotile cilia syndrome Gastroesophageal reflux disease Procedures SPIROMETRY WITH BRONCHODILATOR LA EVAL OF BRONCHOSPASM Albin Child MD Phone: tel: fax: [place] [address] Phone: tel: fax: Referral ID Status Reason Start Date Expiration Date Visits Re quested Visits Authorized [id number] Closed 02/08/2013 1 1 * Test (Routine/Next Available) - Closed Specialty Diagnoses / Procedures Referred By Paula azul Referred To Contact Pediatric Pulmonology Diagnoses Asthma, intermittent Procedures SPIROMETRY WITH BRONCHODILATOR LA EVAL OF BRONCHOSPASM Albin Child MD Phone: tel: fax: [address] [address] Phone: tel: fax: Referral ID Status Reason Start Date Expiration Date Visits Re quested Visits Authorized [id number] Closed 08/08/2012 1 1 Reason for Visit * Reason Comments Other primary ciliary dysk inesia Asthma Encounter Details Date Type Department Care Team (Late st Contact Info) Description 08/08/2012 13:45 EDT Office Visit [facility] Pediatric Pulmonary - Main [address] [address] Albin Child MD [address] [place] [phone] Asthma, intermittent (Primary Dx); Immotile cilia syndrome; Gastroesophageal reflux disease; Asthma Discharge Disposition: Auto Discharge Social History [...] Sign Reading Time Taken Comments Blood Pressure 101/55 08/08/2012 1332 EDT Pulse 86 08/08/2012 1332 EDT Temperature - - Respiratory Rate 18 08/08/2012 1332 EDT Oxygen Saturation 100% 08/08/2012 1332 EDT Inhaled Oxygen Concentration - - Weight 25.4 kg (56 lb 1.7 oz) 08/08/2012 1332 ED T Height 131.4 cm (4' 3.73) 08/08/2012 1332 EDT Body Mass Index 14.74 08/08/2012 1332 EDT Body Mass Index Percentile 27.86% 08/08/2012 133 2 EDT Growth Chart: [facility] (Girls, 2- 20 Years) documented in this encounter Mental Status * Because of a physical, mental, or emotional condition, do you have serious difficulty concentrating, remembering, or making decisions? (5 years old or older) Answer Entry Date Author Yes 02/13/2010 0:00 EDT Mohit Yusuf RN documented in this encounter Ordered Prescriptions Prescription Sig Dispense Quantity Refills Last Filled Start Date End Date inhalational spacing device (AEROCHAMBER) Inhale 1 Device as directed daily as needed. 1 Device 1 08/08/2012 6 levalbuterol (XOPENEX HFA) 45 mcg/actuation inhaler Inhale 2 Puffs as directed every 4 hours as needed. 1 Inhaler 6 08/08/2012 9 fluticasone-salmet vini (ADVAIR HFA) 115-21 mcg/actuation inhaler Inhale 2 Puffs as directed 2 times daily. 36 g 5 08/08/2012 3 documented in this encounter Discharge Disposition Disposition Code Departure Means Destination Auto Discharge documented in this encounter Progress Notes * Albin Child MD - 08/08/2012 1349 EDT Images from the original note were not included. Pediatric Pulmonology Albin Child M.D., Hayden Pearce, Jason Mohan M.D. [address] [phone] Encounter Date: 08/08/2012 TRELL SANON MD [place] [address] [facility] [id number] Chief complaint: Rosario is a 6 y.o. 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 Rosario is accompanied by her mother who contributed to the history. Subjective: Rosario was symptomatic in April. Her symptoms failed to respond to a course of oral Ceftin near. Her jig mill operator and placed her on a 3 week course of Augmentin with subsequent resolution of her cough and congestion. She is been asymptomatic since that time. She has no cough associated with exertion and has not expectorating any sputum. She had one episode of otitis media associated with his previous illness. There is no coughing or frequent awakenings during sleep. Respiratory treatment: vest 2 times daily She is not using pulmozyme because it has not been prescribed. She is using hypertonic saline 1 times a day with pretreatment with beta agonist during illnesses. She is not using azithromycin becauseit was not tolerated. She is not using inhaled tobramycin because it is not indicated. Gastrointestinal/Nutrition: Rosario's appetite is stable. Her diet is healthy diet in general well balanced. Supplemental nutrition is not indicated at this time . She has about 1 stool per day. Stools are formed. Gastroesophageal reflux symptoms are absent. Otolaryngology: Rosario has had no rhinorrhea, sinus congestion, sinus pressure, sneezing, throat clearing, URI symptoms, nasal congestion, post nasal drip and sore throat. She has had recent epistaxis. Allergy related symptoms are not present. She is not using sinus rinse kits about once a day. General Health: Her overall behavior has been normal, playful. In regard to activity, she is very active. Rosario has missed 0 days of school due to illness. Environmental Exposure: No interval change since the last visit. Environmental Tobacco Exposure: No REVIEW OF SYSTEMS: Positive for: none Negative for: fever, chills, malaise, runny nose, congestion, ear pain, cough, shortness of breath,increased work of breathing, tachypnea, wheezing, stridor, exertional [...] Outpatient Prescriptions Marked as Taking for the 08/08/12 encounter (Office Visit) with Albin Child MD Medication Sig Dispense Refill ??? fluticasone-salmeterol (ADVAIR HFA) 115-21 mcg/actuation inhaler Inhale 2 Puffs as directed 2 times daily. 36 g 5 ??? inhalational spacing device (AEROCHAMBER) Inhale 1 Device as directed daily as needed. 1 Device1 ??? mometasone (NASONEX) 50 mcg/actuation nasal spray 1 Switzer by Nasal route 2 times daily. ??? dicyclomine (BENTYL) 10 mg/5 mL syrup Take 2.5 mL by mouth 3 times daily as needed for Pain. 300 mL 3 ??? DISCONTD: fluticasone-salmeterol (ADVAIR HFA) 115-21 mcg/actuation inhaler Inhale 2 Puffs as directed 2 times daily. 36 g 5 ??? polyethylene glycol (GLYCOLAX) 17 gram/dose powder take 1 CAPFUL (17GM) (DISSOLVED IN WATER) bymouth once daily 527 g 3 ??? PREVACID 30 mg capsule take 1 capsule by mouth once daily 90 Cap 3 ??? montelukast (SINGULAIR) 5 mg chewable tablet Take 1 Tab by mouth every evening. 30 Tab 6 ??? Ammonium Lactate (LAC-HYDRIN FIVE) 5 % Lotn Apply topically as needed. ??? DISCONTD: inhalational spacing device (AEROCHAMBER) Inhale 1 Device as directed daily as needed. 1 Device 1 ??? cetirizine (ZYRTEC) 1 mg/mL Soln Take [...] dad ??? Carpets Yes Objective Data: BP 101/55 Pulse 86 Resp 18 Ht 131.4 cm (51.73) Wt 25.45 kg (56 lb 1.7 oz) BMI 14.74 kg/m2 SpO2 100% Wt Readings from Last 5 Encounters: 08/08/12 25.45 kg (56 lb 1.7 oz) (58.40%*) 08/08/12 25.45 kg (56 lb 1.7 oz) (58.40%*) 05/05/12 25.3 kg (55 lb 12.4 oz) (64.13%*) 05/05/12 25.3 kg (55 lb 12.4 oz) (64.13%*) 12/08/11 24.04 kg (53 lb) (63.79%*) * Growth percentiles are based on [facility] 2-20 Years data. General Appearance: well appearing, alert, no acute distress, cooperative Head: normocephalic, atraumatic Eye: no injection, no discharge Ear: canals clear bilaterally, tympanostomy tubes patent and in proper position Nose: purulent rhinorrhea Mouth\Throat: moist mucosa, oropharynx without exudate, erythema [...] PFTs: PFTS (Before Albuterol Treatment) FVC (L): 1.92 liters FVC % Pred: 105 FEV1 (L): 1.78 liters FEV 1 % Pred: 109 FEF 25-75% (L/scc): 2.46 FEF 25-75% Pred: 118 FEV-1/FVC % Pred: 93 PFTS (After Albuterol Treatment) FVC (L) (After Albuterol): 1.91 liters FVC % Pred (After Albuterol): 105 FEV1 (L) (After Albuterol): 1.78 liters FEV 1 % Pred (After Albuterol): 109 FEF 25-75% (L/scc) (After Albuterol): 2.67 FEF 25-75% Pred (After Albuterol): 128 FEV-1/FVC (After Albuterol): 93 Culture Results: No results found for this or any previous visit. Results for orders placed in visit on 05/05/12 CYSTIC FIBROSIS RESPIRATORY CULTURE, SWAB Component Value Range Specimen Description Throat Result Mod Usual tiff-pharyngeal ana Report Status 05/10/2012 Final Assessment and Plan: Rosario is 6 y.o. old female with who is symptomatic. Spirometry (FEV1) increased by 10% from her last visit without bronchodilator response. She appears to be responding well to regular airway clearance and sinus rinses. Her growth continues to be excellent. Epistaxis may be due to nasal steroid use. Her overall good state of health is very encouraging. Asthma and Postnasal drip may be exacerbating factors, but appear well controlled. The following plan was discussed with her mother: ?? Continue medications as above ?? Nutrition: Continue current vitamin rx ?? Airway Clearance: continue vest 2 times daily ?? Sinus rinse kits once or twice daily ?? No Xopenex prior to exercise ?? Hold Nasonex for one week if bleeding persists, then decrease dose to 1 spray daily. ?? Discussed the following exercise recommendations: 30 min per day and Pre- treat with bronchodilator ?? Studies today include: spirometry ?? Follow up in 6 months. Seasonal Influenza Vaccine: Already received. Please contact me with questions or concerns regarding Rosario's care. Sincerely, ALBIN CHILD MD documented in this encounter Procedure Notes * PLANT NURSERY WORKER, SCAN 2 - 08/23/2012 1023 EDTAssociated Order(s): PULMONARY FUNCTION LAB REPORT - SCANNED documented in this encounter Plan of Treatment Upcoming Encounters Date Type Department Care Team (Late st Contact Info) Description 04/24/2024 15:30 EST Telemedicine [facility] Pediatric Pulmonary - Main [address] [address] Lucy Rodgers MD [address] [place] [phone] Scheduled Orders Name Type Priority Associated Diagnoses Orde r Schedule SPIROMETRY WITH BRONCHODILATOR PFT Routine Asthma, intermittent Ordered: 08/08/2012 documented as of this encounter Procedures Procedure Name Priority Date/Time Associated Diagnosis Comments PULMONARY FUNCTION REPORT - SCANNED 08/23/2012 10:23 EDT documented in this encounter Results * PULMONARY FUNCTION LAB REPORT - SCANNED (08/23/2012 10:23 EDT) 08/23/2012 10:2 3 EDT Narrative 08/23/2012 10:32 EDT Procedure Note PLANT NURSERY WORKER, SCAN 2 - 08/23/2012 10:23 EDT us Scan 2 Adjuster Piano Action PROCEDURE/MINOR SURGICAL OR DERABLES Final Result documented in this encounter Visit Diagnoses Diagnosis Asthma, intermittent- Primary Unspecified asthma Immotile cilia syndrome Situs inversus Gastroesophageal reflux disease Esophageal reflux Asthma Unspecified asthma documented in this encounter Discontinued Medications Medication Sig Discontinue Reason Start Date End Da te UNABLE TO FIND Take 7 % by nebulization 2 times daily. Med Name:Hyper tonic Saline (7%) Therapy completed 08/08/2012 fluticasone-salmetero l (ADVAIR HFA) 115-21 mcg/actuation inhaler Inhale 2 Puffs as directed 2 times daily. Reorder 12/08/2011 08/08/2012 levalbuterol (XOPENEX HFA) 45 mcg/Actuation inhaler Inhale 2 Puffs as directed every 4 hours as needed. Reorder 02/12/2011 08/08/2012 inhalational spacing device (AEROCHAMBER) Inhale 1 Device as directed daily as needed. Reorder 12/22/2010 08/08/2012 documented as of this encounter Orders PFT Count Last Ordered Date First Orde red Date SPIROMETRY WITH BRONCHODILATOR 1 08/08/2012 documented in this encounter Care Teams Social Media Designer Relationship Specialty Start Date End Date Trell Sanon MD [place] [address] PCP - General 04/10/09 documented as of this encounter
--- OUTSIDE RECORDS SUMMARY | 2024-03-30 21:49 | XMS_ITS | Encounter Summary ---
Author Organization [facility] Address [address] [place] [address] Care Team Providers Care Supervisor Specialty Plant Name Role Phone Trell Pittman MD Primary Care Provider [phone] [phone] Reason for Visit * Reason Onset Date Comments Medication Management 02/06/2013 Encounter Details Date Type Department Care Team (Late st Contact Info) Description 02/06/2013 Telephone [facility] Pediatric Pulmonary [facility] [address] [place] [address] Bushra Castro, hand dry cleaner Management Social History Tobacco Use Types Packs/Day Years [...] encounter Miscellaneous Notes * Telephone Encounter - Bushra Castro RN - 02/06/2013 4182 EDT Called pt's hometown pharmacy and 7% normal saline is covered by her insurance. Called pt's mother and told her I checked and it is covered. documented in this encounter Plan of Treatment Upcoming Encounters Date Type Department Care Team (Late st Contact Info) Description 04/24/2024 15:30 EST Telemedicine [facility] Pediatric Pulmonary - [address] [address] Lucy Rodgers MD [address] [place] [phone] documented as of this encounter Visit Diagnoses Not on filedocumented in this encounter Care Teams Supervisor Specialty Plant Relationship Specialty Start Date End Date Trell Pittman MD [address] [place] [address] [place] [address] PCP - General 04/10/09 documented as of this encounter
--- OUTSIDE RECORDS SUMMARY | 2024-03-30 21:49 | XMS_ITS | Encounter Summary ---
Author Organization [facility] Address [address] [place] [address] Care Team Providers Care Harp Maker Name Role Phone Trell Pittman MD Primary Care Provider [phone] [phone] Reason for Visit * Reason Comments Asthma Cough Encounter Details Date Type Department Care Team (Late st Contact Info) Description 03/22/2015 14:15 EST Office Visit 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 Social History [...] Sign Reading Time Taken Comments Blood Pressure 107/62 03/22/2015 1336 EST Pulse 72 03/22/2015 1336 EST Temperature - - Respiratory Rate 18 03/22/2015 1336 EST Oxygen Saturation 98% 03/22/2015 1336 EST Inhaled Oxygen Concentration - - Weight 36.8 kg (81 lb 2.1 oz) 03/22/2015 1336 ES T Height 147.7 cm (4' 10.15) 03/22/2015 1336 EST Body Mass Index 16.87 03/22/2015 1336 EST Body Mass Index Percentile 47.96% 03/22/2015 133 6 EST Growth Chart: [facility] (Girls, 2- 20 Years) documented in this encounter Mental Status * Because of a physical, mental, or emotional condition, do you have serious difficulty concentrating, remembering, or making decisions? (5 years old or older) Answer Entry Date Author Yes 02/13/2010 0:00 EDT Mohit Yusuf, RN documented in this encounter Patient Instructions * Patient Instructions* Lucy Rodgers MD - 03/22/2015 13:51 EST Augmentin x 2 weeks. Call at the end of the course if not completely better and can extend the course. Call if not improving. Nasonex 1 spray each nostril twice daily. Cetirizine 10 mg daily as needed Saline gel as needed if nosebleeds. Stop Nasonex if nosebleeds. Vest, manual chest PT, or acapella twice daily Hypertonic saline 1-2 times daily documented in this encounter Ordered Prescriptions Prescription Sig Dispense Quantity Refills Last Filled Start Date End Date sodium chloride 7 % solution for nebulization Take 4 mL by nebulization 2 times daily 60 Ampule 5 03/22/2015 9 albuterol (PROAIR HFA) 90 mcg/actuation inhaler Inhale 2-4 Puffs as directed every 4 hours as needed for Wheezing (cough, short of breath) 1 Inhaler 3 03/22/2015 6 budesonide-formot vini HFA (SYMBICORT) 160-4.5 mcg/actuation HFA aerosol inhaler inhaler Inhale 2 Puffs as directed 2 times daily 3 Inhaler 3 03/22/2015 6 montelukast (SINGULAIR) 5 mg chewable tablet Take 1 Tab by mouth every evening 90 Tab 6 03/22/2015 7 cefdinir (OMNICEF) 250 mg/5 mL suspension Take 5.2 mL by mouth 2 times daily for 14 days 145.6 mL 0 03/22/2015201 5 documented in this encounter Progress Notes * Lucy Rodgers MD - 04/07/2015 8618 EST Images from the original note were not included. Pediatric Pulmonology James Franlkin M.D., Hayden Pearce, Lucy Rodgers M.D. [address] [address] Encounter Date: 03/22/2015 Trell Pittman [address] [place] [address] [address] [facility] [id number] Chief Complaint: Rosario is a 9 y.o. 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 Subjective: Rosario has been symptomatic with a wet cough for the past 6 weeks. Onset of cough was with a cold.She continues to have some nasal congestion. The cough seems to be worsening and she has a rattlingsound in her throat. The cough is mainly in the daytime She has sporadic cough at night. Albuterol has not helped the cough. About 2.5 obie ago she had an episode of coughing with posttussive emesis. Trigger was unclear and he mother reports there were no preceding or subsequent symptoms until 6 weeks ago. She has exertional symptoms with cough and shortness of breath that is prevented by pretreatment with albuterol prior to gym class. This was present prior to her current symptoms. She is not currently using Nasonex due to some nosebleeds (now resolved since stopping Nasonex). She is using sinus rinses 1-2 times daily. She snores at night. There are no reflux symptoms. She has been using her vest daily at school along with 7% saline. Typical triggers: Infections / Colds, Environmental Allergies, [...] medication only for exercise Preventive/long-term control: ?? Symbicort 160-4.5 ?? montelukast Proper use of chamber / mask: Yes Medication Compliance: reportedly adherent at mother's house Respiratory treatment: Vest daily She is not using pulmozyme because it has not been prescribed. She is using hypertonic saline once daily. She is not using azithromycin because it was not tolerated. She is not using inhaled tobramycin because it is not indicated. Gastrointestinal/Nutrition: Rosario's appetite is stable. Her diet is healthy diet in general Supplemental nutrition is not indicated at this time . She has about 1 stool per day. Stools are formed. Gastroesophageal reflux symptoms are absent. Otolaryngology: Rosario has had sinus congestion. She is using sinus rinses 1-2 times daily. General Health: Her overall behavior has been [...] Outpatient Prescriptions Marked as Taking for the 03/22/15 encounter (Office Visit) with Lucy Rodgers MD Medication Sig Dispense Refill ??? albuterol (PROAIR HFA) 90 mcg/actuation inhaler Inhale 2-4 Puffs as directed every 4 hours as needed for Wheezing (cough, short of breath) 1 Inhaler 3 ??? [DISCONTINUED] albuterol (PROAIR HFA) 90 mcg/actuation inhaler Inhale 2-4 Puffs as directed every 4 hours as needed for Wheezing (cough, short of breath). 1 Inhaler 3 ??? budesonide-formoterol HFA (SYMBICORT) 160-4.5 mcg/actuation HFA aerosol inhaler inhaler Inhale 2 Puffs as directed 2 times daily 3 Inhaler 3 ??? [DISCONTINUED] budesonide-formoterol HFA (SYMBICORT) 160-4.5 mcg/actuation HFA aerosol inhaler inhaler Inhale 2 Puffs as directed 2 times daily. 3 Inhaler 3 ??? inhalational spacing device (AEROCHAMBER) Inhale 1 Device as directed daily as needed. 1 Device1 ??? montelukast (SINGULAIR) 5 mg chewable tablet Take 1 Tab by mouth every evening 90 Tab 6 ??? [DISCONTINUED] montelukast (SINGULAIR) 5 mg chewable tablet Take 1 Tab by mouth every evening. 90 Tab 6 ??? polyethylene glycol (GLYCOLAX) 17 gram/dose powder Take 17 g by mouth daily. 527 g 11 Allergies Allergen Reactions ??? Adhesive Tape Other [...] portion of this note. Objective Data BP 107/62 mmHg Pulse 72 Resp 18 Ht 147.7 cm (58.15) Wt 36.8 kg (81 lb 2.1 oz) BMI 16.87 kg/m2 SpO2 98% General Appearance: well appearing, alert, no acute distress, cooperative Head: normocephalic, atraumatic Eye: no injection, no discharge Ear: TMs and canals clear bilaterally Nose: erythematous mucosa and mucoid discharge Mouth\Throat: moist mucosa, oropharynx without exudate, erythema or thrush, 2+ tonsils Lymph Nodes: shotty cervical adenopathy Chest\Lungs: Air entry is good bilaterally, wheezing is not appreciated, few coarse breath sounds over upper chest cleared with cough, crackles are not appreciated, no retractions, expiratory phase is within normal limits, cough is present Abdomen: abdomen is soft, nontender, and nondistended without hepatosplenomegaly or masses and normoactive bowel sounds are present Heart: S1/S2 RRR and no murmur Skin: Warm and dry, Cyanosis is absent MSK:Clubbing is absent Diagnostic Data PFT's PFTS (Before Albuterol Treatment) FVC (L): 2.61 liters FVC % Pred: 103 FEV1 (L): 2.36 liters FEV 1 % Pred: 106 FEF 25-75% (L/scc): 3.14 FEF 25-75% Pred: 115 FEV-1/FVC % Pred: 102 PFTS (After Albuterol Treatment) FVC (L) (After Albuterol): 2.55 liters FVC % Pred (After Albuterol): 101 FEV1 (L) (After Albuterol): 2.38 liters FEV 1 % Pred (After Albuterol): 107 FEF 25-75% (L/scc) (After Albuterol): 3.61 FEF 25-75% Pred (After Albuterol): 132 FEV-1/FVC (After Albuterol): 94 Throat culture: pending Assessment and Plan Rosario is a 9 y.o. 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 Oral antibiotictherapy is indicated and throat culture was obtained. Spirometry (FEV1) is at baseline and is without bronchodilator response. She benefits from vest therapy and is receiving this at home. She is interested in using an acapella device at home. She is mostly adherent with asthma maintenance therapy.Her growth continues to be excellent. The following plan was discussed with Rosario and her mother: Continue medications as above Augmentin x 2 weeks. Call at the end of the course if not completely better and can extend the course. Call if not improving. Continue asthma action plan Airway Clearance: vest once daily and acapella once daily 7% hypertonic saline 1-2 times daily Continue sinus rinses. Restart Nasonex 1 spray each nostril daily. Saline gel as needed if nosebleeds. Stop Nasonex if nosebleeds. Cetirizine 10 mg daily as needed Discussed the following exercise recommendations: 30 min per day, pretreatment with bronchodilator before heavy activity Influenza vaccine: already received Studies today include: spirometry and throat culture Follow up in 6 weeks Education / Self Management Goals: Symptomatic treatments reviewed. Patient's condition, differential diagnosis, and Treatment Plan reviewed. Teaching provided for the listed diagnoses and/or medications. Action plan given and discussed. Spacer use discussed. Nebulizer use discussed. Triggers and risk factors discussed. Patient's / Parent's Insight into Illness: Good understanding of disease and symptom management Please feel free to contact us with questions or comments regarding Rosario's care. Sincerely, Lucy Rodgers MD documented in this encounter Plan of Treatment Upcoming Encounters Date Type Department Care Team (Late st Contact Info) Description 04/24/2024 15:[address] [facility] Pediatric Pulmonary - Main [place] [address] [place] [address] Lucy Rodgers MD [address] [place] [phone] documented as of this encounter Procedures Procedure Name Priority Date/Time Associated Diagnosis Comments CYSTIC FIBROSIS RESPIRATORY CULTURE, SWAB Routine 03/22/2015 14:20 EST Cough documented in this encounter Results * CYSTIC FIBROSIS RESPIRATORY CULTURE, SWAB (03/22/2015 14:20 EST) Result Rare STAPHYLOCOC CUS AUREUS 03/27/2015 11:57 EST [facility] Result Heavy Usual tiff-pharyng eal ana 03/27/2015 11:57 EST [facility] Specimen of unknown material (specimen) ENTIRE THROAT / Unknown 03/22/2015 14:20 EST 03/22/2015 14:47 EST Narrative Organism Antibiotic Method Susceptibility Rare staphylococcus aureus Susceptibility comment SUSCEPTIBILITY (GARRY) Rare staphylococcus aureus Susceptibility comment SUSCEPTIBILITY (GARRY) Susceptible to nafcillin, cephalosporins and other beta lactam antibiotics (mecA gene product absent). Rare staphylococcus aureus Oxacillin SUSCEPTIBILITY (GARRY) 0.5: Susceptible Rare staphylococcus aureus Cefazolin SUSCEPTIBILITY (GARRY) Susceptible Rare staphylococcus aureus Vancomycin SUSCEPTIBILITY (GARRY) <=0.5: Susceptible Rare staphylococcus aureus Erythromycin SUSCEPTIBILITY (GARRY) <=0.25: Susceptible Rare staphylococcus aureus Clindamycin SUSCEPTIBILITY (GARRY) 0.5: Susceptible Rare staphylococcus aureus Ciprofloxacin SUSCEPTIBILITY (GARRY) <=0.5: Susceptible Rare staphylococcus aureus Tetracycline SUSCEPTIBILITY (GARRY) >=16: Resistant Rare staphylococcus aureus Trimethoprim-Sulfamet hoxazole SUSCEPTIBILITY (GARRY) 160: Resistant Lucy Rodgers MD MICROBIOLOGY - GENERAL ORDER DAMIEN Final Result [facility] [address] [place] [address] documented in this encounter Visit Diagnoses Diagnosis Cough- Primary Immotile cilia syndrome Situs inversus Moderate persistent asthma without complication Unspecified asthma documented in this encounter Discontinued Medications Medication Sig Discontinue Reason Start Date End Da te montelukast (SINGULAIR) 5 mg chewable tablet Take 1 Tab by mouth every evening. Reorder 03/15/2014 03/22/2015 budesonide-formoterol HFA (SYMBICORT) 160-4.5 mcg/actuation HFA aerosol inhaler inhaler Inhale 2 Puffs as directed 2 times daily. Reorder 05/29/2014 03/22/2015 albuterol (PROAIR HFA) 90 mcg/actuation inhaler Inhale 2-4 Puffs as directed every 4 hours as needed for Wheezing (cough, short of breath). Reorder 11/27/2013 03/22/2015 sodium chloride 7 % Solution for Nebulization Take 4 mL by nebulization 2 times daily. Reorder 11/27/2013 03/22/2015 documented as of this encounter Care Teams Harp Maker Relationship Specialty Start Date End Date Trell Pittman MD [address] [place] [address] PCP - General 04/10/09 documented as of this encounter
--- OUTSIDE RECORDS SUMMARY | 2024-03-30 21:49 | XMS_ITS | Encounter Summary ---
Author Organization [facility] Address [address] [place] [address] Care Team Providers Care Field Manager Name Role Phone Trell Pittman MD Primary Care Provider [phone] [phone] Reason for Visit * Reason Comments Follow-up Encounter Details Date Type Department Care Team (Late st Contact Info) Description 08/08/2012 11:25 EDT Office Visit [facility] ENT- Main [address] [address] Felix Spears MD [address] [place] [address], [address] [place] [address] Simple or unspecified chronic serous [...] Progress Notes * Felix Spears MD - 08/08/2012 1201 EDT CHIEF COMPLAINT: Recurrent otitis media, chronic serous otitis media. HISTORY OF PRESENT ILLNESS: The patient has had no difficulties since last visit, no ear infection,no hearing loss, no hearing concerns. Right ear canal, eardrum, middle ear space is normal. Left ear canal, eardrum, middle ear space are normal. There are functioning tubes on both sides without infection or drainage. The patient does complain about itching on the right side. ASSESSMENT: Recurrent otitis media, chronic serous otitis media, normal tube check. PLAN: Follow up 6 months. Mom thinks the tubes have been in 2 years this coming October. documented in this encounter Plan of Treatment Upcoming Encounters Date Type Department Care Team (Late st Contact Info) Description 04/24/2024 15:30 EST Telemedicine [facility] [address] [place], [place] [address] Lucy Rodgers MD [address] [place] [address] documented as of this encounter Visit Diagnoses Diagnosis Simple or unspecified chronic serous otitis media- Primary Unspecified chronic suppurative otitis media documented in this encounter Discontinued Medications Medication Sig Discontinue Reason Start Date End Da te azithromycin (ZITHROMAX) 200 mg/5 mL suspension Take 5 mL by mouth three times a week. Take 1 tsp by mouth (5ml) three times per week (M,W, F) 02/14/2010 08/08/2012 lactobacillus acidophilus & bulgar (LACTINEX) chewable tablet Take 1 Tab by mouth 3 times daily with meals. 12/08/2011 08/08/2012 documented as of this encounter Care Teams Field Manager Relationship Specialty Start Date End Date Trell Pittman MD [address] [place] [address] PCP - General 04/10/09 documented as of this encounter
--- OUTSIDE RECORDS SUMMARY | 2024-03-30 21:49 | XMS_ITS | Encounter Summary ---
Author Organization [facility] Address [address] [place] [address] Care Team Providers Care Hostess Host Name Role Phone Trell Pittman MD Primary Care Provider [phone] [phone] Encounter Details Date Type Department Care Team (Latest Contact Info) Description 05/05/2012 9:53 EST - 05/05/2012 23:59 EST Hospital Encounter [facility] Pulmonary Function Lab - [facility] [address] [place], [place] [address] Asthma Discharge Disposition: Home or Self Care [...] (M,W, F) 60 mL 2 02/14/2010 3 cefdinir (OMNICEF) 250 mg/5 mL suspension Take 3.5 mL by mouth 2 times daily for 14 days. 98 mL 0 05/05/2012 3 cetirizine (ZYRTEC) 1 mg/mL Soln Take [...] mometasone (NASONEX) 50 mcg/actuation nasal spray 1 [place] by Nasal route 2 times daily. 6 [...] 90 Cap 3 04/19/2011 3 sodium chloride 7 % Nebu Take 4 mL by nebulization 2 times daily. 60 Ampule 5 05/05/2012 3 UNABLE TO FIND Take 7 % by nebulization 2 times daily. Med Name:Hyper tonic Saline (7%) 3 documented as of this encounter Discharge Disposition Disposition Code Departure Means Destination Home or Self Prison documented in this encounter Progress Notes * Amy Maza RT - 05/05/2012 1010 EST Testing was performed and recorded in [facility]. See complete report in scanned documents. documented in this encounter Procedure Notes * LEAD SOFTWARE DEVELOPER, SCAN 2 - 05/19/2012 1342 ESTAssociated Order(s): PULMONARY FUNCTION LAB REPORT - SCANNED documented in this encounter Plan of Treatment Upcoming Encounters Date Type Department Care Team (Late st Contact Info) Description 04/24/2024 15:30 EST Telemedicine [facility] Pediatric Pulmonary - [facility] [address] [place] [address] Lucy Rodgers MD [address] [place] [phone] documented as of this encounter Procedures Procedure Name Priority Date/Time Associated Diagnosis Comments PULMONARY FUNCTION REPORT - SCANNED 05/19/2012 13:42 EST documented in this encounter Results * PULMONARY FUNCTION LAB REPORT - SCANNED (05/19/2012 13:42 EST) 05/19/2012 13:4 2 EST Narrative 05/19/2012 14:33 EST Procedure Note LEAD SOFTWARE DEVELOPER, NORAH 2 - 05/19/2012 13:42 EST us Scan 2 [place] PROCEDURE/MINOR SURGICAL OR DERABLES Final Result documented in this encounter Visit Diagnoses Diagnosis Asthma Unspecified asthma documented in this encounter Administered Medications Inactive Administered Medications - up to 3 most recent administrations Medication Order MAR Action Action Date Dose Rate Site albuterol (VENTOLIN HFA) inhaler 2 Puff 2 Puff, inhalation, Once (Without Time Specified), 1 dose, Starting on [place] 05/05/12 at 1030, Until [place] 05/05/12 at 1009, Routine Given 05/05/2012 10:09 EST 2 Puffs documented in this encounter Orders Medications Ordered That Janes ht Not Have Been Administered Count Last Ordered Date First Ordered Date albuterol (VENTOLIN HFA) inhaler 2 Puff 1 1 07/06/2011 documented in this encounter Care Teams Hostess Host Relationship Specialty Start Date End Date Trell Pittman MD [address] [place] [address] PCP - General 04/10/09 documented as of this encounter
--- OUTSIDE RECORDS SUMMARY | 2024-03-30 21:49 | XMS_ITS | Encounter Summary ---
Author Organization [facility] Address [address] [place] [address] Care Team Providers Care Search Engine Optimization Specialist Name Role Phone Trell Pittman MD Primary Care Provider [phone] [phone] Reason for Referral * Test (Routine) - Closed Specialty Diagnoses / Procedures [facility] To Contact Pediatric Pulmonology Diagnoses Moderate persistent asthma without complication Procedures SPIROMETRY WITH BRONCHODILATOR GA EVAL OF BRONCHOSPASM James Franklin MD Phone: tel: fax: [facility] Pulmonary [address] [address] Phone: tel: fax: Referral ID Status Reason Start Date Expiration Date Visits Re quested Visits Authorized [id number] Closed 09/05/2015 1 1 Reason for Visit * Reason Onset Date Comments Testing 08/29/2015 Encounter Details Date Type Department Care Team (Late st Contact Info) Description 08/29/2015 Orders Only [facility] Pulmonary Main [address] [address] Scarlet Washington RN Moderate persistent asthma without complication (Primary [...] Telemedicine [facility] Pediatric Pulmonary - Main [address] [phone] Lucy Rodgers MD [address] [place] [phone] documented as of this encounter Visit Diagnoses Diagnosis Moderate persistent asthma without complication- Primary Unspecified asthma documented in this encounter Orders PFT Count Last Ordered Date First Orde red Date SPIROMETRY WITH BRONCHODILATOR 1 08/29/2015 documented in this encounter Care Teams Search Engine Optimization Specialist Relationship Specialty Start Date End Date Trell Pittman MD [address] [place] [address] PCP - General 04/10/09 documented as of this encounter
--- OUTSIDE RECORDS SUMMARY | 2024-03-30 21:49 | XMS_ITS | Encounter Summary ---
Author Organization [facility] Address [address] [place] [address] Care Team Providers Care Technical Assistance Consultant Name Role Phone Trell Pittman MD Primary Care Provider [phone] [phone] Reason for Visit * Reason Onset Date Comments Medications Refill 03/15/2014 Encounter Details Date Type Department Care Team (Late st Contact Info) Description 03/15/2014 Refill [facility] Pediatric Pulmonary [facility] [address] [place] [address] Vaishali García RN Medications Refill Social History Tobacco Use Types [...] mouth every evening. 90 Tab 6 03/15/2014 03/22/2015 documented in this encounter Miscellaneous Notes * Telephone Encounter - Vaishali García RN - 03/15/2014 0912 EDT refilled singulair to pharmacy per their request. documented in this encounter Plan of Treatment Upcoming Encounters Date Type Department Care Team (Late st Contact Info) Description 04/24/2024 15:[address] [facility] Pediatric Pulmonary - [address] [phone] Lucy Rodgers MD [address] [place] [phone] documented as of this encounter Visit Diagnoses Not on filedocumented in this encounter Discontinued Medications Medication Sig Discontinue Reason Start Date End Da te montelukast (SINGULAIR) 5 mg chewable tablet Take 1 Tab by mouth every evening. Reorder 11/27/2013 03/15/2014 documented as of this encounter Care Teams Technical Assistance Consultant Relationship Specialty Start Date End Date Trell Pittman MD [address] [place] [address] PCP - General 04/10/09 documented as of this encounter
--- OUTSIDE RECORDS SUMMARY | 2024-03-30 21:49 | XMS_ITS | Encounter Summary ---
Author Organization [facility] Address [address] [place] [address] Care Team Providers Care [facility] Products Assembler Name Role Phone Trell Pittman MD Primary Care Provider [phone] [phone] Reason for Visit * Reason Onset Date Comments Appointment Related 10/05/2013 Encounter Details Date Type Department Care Team (Late st Contact Info) Description 10/05/2013 Telephone [facility] Pediatric Pulmonary - [facility] [address] [place] [address] James Franklin MD [address] [place] [address] Appointment Related Social History Tobacco [...] encounter Miscellaneous Notes * Telephone Encounter - Eloisa Arellano - 10/05/2013 1217 EDT Spoke with Lucy. Appointment is rescheduled to 11/21/13. Lucy wanted to wait because of a new job. * Telephone Encounter - Harley Melton - 10/05/2013 0940 EDT Calling to cancel today due to sick children. She would like a call back to schedule this appointment please give her a call at [phone] documented in this encounter Plan of Treatment Upcoming Encounters Date Type Department Care Team (Late st Contact Info) Description 04/24/2024 15:30 EST Telemedicine [facility] Pediatric Pulmonary - [address] [id number] Lucy Rodgers MD [address] [place] [phone] documented as of this encounter Visit Diagnoses Not on filedocumented in this encounter Care Teams [facility] Products Assembler Relationship Specialty Start Date End Date Trell Pittman MD [address] [place] [address] PCP - General 04/10/09 documented as of this encounter
--- OUTSIDE RECORDS SUMMARY | 2024-03-30 21:49 | XMS_ITS | Encounter Summary ---
Author Organization [facility] Address [address] [place] [address] Care Team Providers Care Folding Machine Operator Name Role Phone Trell Sanon MD Primary Care Provider [phone] [phone] Reason for Visit * Reason Comments Gastroesophageal Reflux Encounter Details Date Type Department Care Team (Late st Contact Info) Description 08/08/2012 14:30 EDT Office Visit [facility] - Main [place] [address] [place] [address] Belgica Robles MD MSc [address] [place] [address] Abdominal pain, generalized (Primary Dx); Gastroesophageal reflux disease; Chronic constipation Social History Tobacco Use Types Packs/Day Years [...] Time Taken Comments Blood Pressure 101/55 08/08/2012 1334 EDT Pulse 86 08/08/2012 1334 EDT Temperature - - Respiratory Rate 18 08/08/2012 1334 EDT Oxygen Saturation 100% 08/08/2012 1334 EDT Inhaled Oxygen Concentration - - Weight 25.4 kg (56 lb 1.7 oz) 08/08/2012 1334 ED T Height 131.4 cm (4' 3.73) 08/08/2012 1334 EDT Body Mass Index 14.74 08/08/2012 1334 EDT Body Mass Index Percentile 27.86% 08/08/2012 133 4 EDT Growth Chart: [facility] (Girls, 2- 20 Years) documented in this encounter Mental Status * Because of a physical, mental, or emotional condition, do you have serious difficulty concentrating, remembering, or making decisions? (5 years old or older) Answer Entry Date Author Yes 02/13/2010 0:00 EDT Mohit Yusuf RN documented in this encounter Patient Instructions * Patient Instructions* Belgica Robles MD - 08/08/2012 14:30 EDT 1. Try lactaid free products, can schedule lactose breath test if needed 2. Try daily probiotic in addition to other medications documented in this encounter Ordered Prescriptions Prescription Sig Dispense Quantity Refills Last Filled Start Date End Date lactobacillus rhamnosus, GG, (CULTURELLE) 10 billion cell capsule Take 1 Cap by mouth daily. 90 Cap 3 08/08/2012 05/24/2015 dicyclomine (BENTYL) 10 mg/5 mL syrup Take 2.5 mL by mouth 3 times daily as needed for Pain. 300 mL 6 08/08/2012 02/06/2013 lansoprazole (PREVACID) 30 mg capsule Take 1 Cap by mouth daily. 90 Cap 3 08/08/2012 02/06/2013 polyethylene glycol (GLYCOLAX) 17 gram/dose powder Take 17 g by mouth daily. 527 g 11 08/08/2012 05/24/2015 documented in this encounter Progress Notes * Belgica Robles MD - 08/08/2012 8759 EDT [place] [address] Dear TRELL SANON MD: Rosario Ace was [facility] in [facility] in follow-up for GERD, abdominal pain, constipation on 08/08/2012. She was accompanied by her mother who provided the history. CC: Abdominal pain HISTORY: Concerned about lactose breath test--was asked by Dr. Lyon to discuss possibility of LBT here to r/o lactose intolerance Having foul-smelling stools and is very gassy Having a bowel movement once daily (using miralax 1 cap daily) Bentyl helps with occasional pain (not having very often) Taking tums occasionally (regurgitation better controlled) Overall mom is very pleased with her recent progress. PAST MEDICAL, SURGICAL, FAMILY HISTORY, AND SOCIAL HISTORY: I have reviewed, verified, and personally updated the past medical, surgical, , and family history in the medical record. Patient Active Problem List Diagnoses Date Noted ??? Abdominal pain, generalized 05/05/2012 Priority: Medium Normal TTG, IgA 2008 ??? Simple or unspecified chronic serous otitis media 03/18/2011 ??? Chronic constipation 07/29/2010 ??? 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 Asthma 02/12/2010 ??? Gastroesophageal reflux disease 02/12/2010 Normal EGD/colonoscopy 01/2011 ??? Unspecified Chronic Suppurative Otitis Media 03/29/2009 TP OR PP MEDICATIONS: Current Outpatient Prescriptions Medication Sig Dispense Refill ??? fluticasone-salmeterol (ADVAIR HFA) 115-21 mcg/actuation inhaler Inhale 2 Puffs as directed 2 times daily. 36 g 5 ??? levalbuterol (XOPENEX HFA) 45 mcg/actuation inhaler Inhale 2 Puffs as directed every 4 hours asneeded. 1 Inhaler 6 ??? inhalational spacing device (AEROCHAMBER) Inhale 1 Device as directed daily as needed. 1 Device1 ??? polyethylene glycol (GLYCOLAX) 17 gram/dose powder Take 17 g by mouth daily. 527 g 11 ??? lansoprazole (PREVACID) 30 mg capsule Take 1 Cap by mouth daily. 90 Cap 3 ??? dicyclomine (BENTYL) 10 mg/5 mL syrup Take 2.5 mL by mouth 3 times daily as needed for Pain. 300 mL 6 ??? lactobacillus rhamnosus, GG, (CULTURELLE) 10 billion cell capsule Take 1 Cap by mouth daily. 90Cap 3 ??? sodium chloride 7 % Nebu Take 4 mL by nebulization 2 times daily. 60 Ampule 5 ??? mometasone (NASONEX) 50 mcg/actuation nasal spray 1 [place] by Nasal route 2 times daily. ??? montelukast (SINGULAIR) 5 mg chewable tablet Take 1 Tab by mouth every evening. 30 Tab 6 ??? Ammonium Lactate (LAC-HYDRIN FIVE) 5 % Lotn Apply topically as needed. ??? cetirizine (ZYRTEC) 1 mg/mL Soln Take [...] our visit questionnaire. PHYSICAL EXAM: Blood pressure 101/55, pulse 86, resp. rate 18, height 131.4 cm (51.73), weight 25.45 kg (56 lb 1.7 oz), SpO2 100.00%., 58.4%ile based on CDC 2-20 Years [id number] data., 84.19%ile based on CDC 2-20 Years [id number] data.,Body mass index is 14.74 kg/(m^2). 27.84%ile based on CDC 2-20 Years BMI-for-age data. [...] grossly normal. DATA/DIAGNOSTIC STUDIES: Labs: Reviewed in [facility] Radiology: Reviewed in [facility] I have discussed the patient with Dr. Franklin. I have reviewed the medical record. History obtained from mother. IMPRESSION: 6 yo with ciliary dyskinesia, GERD, abdominal pain, reflux, constipation--all much improved with PPI and maintenance miralax. RECOMMENDATIONS: Patient Instructions 1. Try lactaid free products, can schedule lactose breath test if needed 2. Try daily probiotic in addition to other medications Plan of care, including education on the safe and effective use of medication(s) and/or medical equipment if prescribed, was discussed with mother. She verbalized understanding and agreed to the treatment options discussed. Belgica Robles MD Pediatric Gastroenterology [facility] documented in this encounter Plan of Treatment Upcoming Encounters Date Type Department Care Team (Late st Contact Info) Description 04/24/2024 15:30 EST Telemedicine [facility] Pediatric Pulmonary - [address] [address] Lucy Rodgers MD [address] [place] [phone] documented as of this encounter Visit Diagnoses Diagnosis Abdominal pain, generalized- Primary Gastroesophageal reflux disease Esophageal reflux Chronic constipation Unspecified constipation documented in this encounter Discontinued Medications Medication Sig Discontinue Reason Start Date End Da te polyethylene glycol (GLYCOLAX) 17 gram/dose powder take 1 CAPFUL (17GM) (DISSOLVED IN WATER) by mouth once daily Reorder 11/03/2011 08/08/2012 PREVACID 30 mg capsule take 1 capsule by mouth once daily Reorder 04/19/2011 08/08/2012 dicyclomine (BENTYL) 10 mg/5 mL syrup Take 2.5 mL by mouth 3 times daily as needed for Pain. Reorder 12/08/2011 08/08/2012 documented as of this encounter Care Teams Folding Machine Operator Relationship Specialty Start Date End Date Trell Sanon MD [address] [place] [address] [place] [address] PCP - General 04/10/09 documented as of this encounter
--- OUTSIDE RECORDS SUMMARY | 2024-03-30 21:49 | XMS_ITS | Encounter Summary ---
Author Organization [facility] Address [address] [place] [address] Care Team Providers Care Delivery Truck Driver Name Role Phone Trell Pittman MD Primary Care Provider [phone] [phone] Encounter Details Date Type Department Care Team (Late st Contact Info) Description 03/22/2015 12:15 EST - 03/22/2015 23:59 EST Hospital Encounter [facility] Pulmonary Function Lab - [facility] [address] [place] [address] James Franklin MD [address] [place] [address] Asthma Discharge Disposition: Home or [...] of breath) 1 Inhaler 3 03/22/2015 6 Ammonium Lactate (LAC-HYDRIN FIVE) 5 % Lotn Apply topically as needed. 02/02/2011 6 budesonide-formot vini HFA (SYMBICORT) 160-4.5 mcg/actuation HFA aerosol inhaler inhaler Inhale 2 Puffs as directed 2 times daily 3 Inhaler 3 03/22/2015 6 cefdinir (OMNICEF) 250 mg/5 mL suspension Take 5.2 mL by mouth 2 times daily for 14 days 145.6 mL 0 03/22/2015 5 cetirizine (ZYRTEC) 1 mg/mL Soln Take [...] mometasone (NASONEX) 50 mcg/actuation nasal spray 1 [place] by Nasal route 2 times daily. 6 montelukast (SINGULAIR) 5 mg chewable tablet Take 1 Tab by mouth every evening 90 Tab 6 03/22/2015 7 Multivitamins with Minerals Tab Take 1 Tab by mouth three times a week. 6 polyethylene glycol (GLYCOLAX) 17 gram/dose powder Take 17 g by mouth daily. 527 g 11 08/08/2012 6 sodium chloride 7 % solution for nebulization Take 4 mL by nebulization 2 times daily 60 Ampule 5 03/22/2015 9 documented as of this encounter Discharge Disposition Disposition Code Departure Means Destination Home or Self Group Home documented in this encounter Progress Notes * Amy Maza RT - 03/22/2015 1224 EST Testing was performed and recorded in [facility]. See complete report in scanned documents. documented in this encounter Plan of Treatment Upcoming Encounters Date Type Department Care Team (Late st Contact Info) Description 04/24/2024 15:30 EST Telemedicine [facility] Pediatric Pulmonary - [facility] [address] [place] [address] Lucy Rodgers MD [address] [place] [phone] documented as of this encounter Procedures Procedure Name Priority Date/Time Associated Diagnosis Comments PULMONARY FUNCTION REPORT - SCANNED 04/09/2015 5:04 EST PULMONARY FUNCTION REPORT - SCANNED 03/22/2015 12:37 EST documented in this encounter Results * PULMONARY FUNCTION REPORT - SCANNED (04/09/2015 5:04 EST) 04/09/2015 5:04 EST us Scan 2 Strapper And Buffer PROCEDURE/MINOR SURGICAL OR DERABLES Final Result * PULMONARY FUNCTION REPORT - SCANNED (03/22/2015 12:37 EST) 03/22/2015 12:3 7 EST us Scan 2 Strapper And Buffer PROCEDURE/MINOR SURGICAL OR DERABLES Final Result documented in this encounter Visit Diagnoses Diagnosis Asthma Unspecified asthma documented in this encounter Administered Medications Inactive Administered Medications - up to 3 most recent administrations Medication Order MAR Action Action Date Dose Rate Site albuterol inhaler 2 Puff 2 Puff, inhalation, Once (Without Time Specified), 1 dose, Starting on Wed03/22/15 at 1245, Until Wed03/22/15 at 1224, Routine Given 03/22/2015 12:24 EST 2 Puffs documented in this encounter Orders Medications Ordered That Janes ht Not Have Been Administered Count Last Ordered Date First Ordered Date albuterol inhaler 2 Puff 1 03/22/2015 documented in this encounter Care Teams Delivery Truck Driver Relationship Specialty Start Date End Date Trell Pittman MD [address] [place] [address] PCP - General 04/10/09 documented as of this encounter
--- OUTSIDE RECORDS SUMMARY | 2024-03-30 21:49 | XMS_ITS | Encounter Summary ---
Author Organization [facility] Address [address] [place] [address] Care Team Providers Care Broke Worker Name Role Phone Trell Sanon MD Primary Care Provider [phone] [phone] Reason for Visit * Reason Comments Gastroesophageal Reflux Constipation Encounter Details Date Type Department Care Team (Late st Contact Info) Description 05/05/2012 10:00 EST Office Visit [facility]ty Center - Main [place] [address] [place] [address] Belgica Robles MD MSc [address] [place] [address] Abdominal pain, generalized (Primary Dx); [...] Time Taken Comments Blood Pressure 111/55 05/05/2012 0928 EST Pulse 89 05/05/2012 0928 EST Temperature - - Respiratory Rate - - Oxygen Saturation - - Inhaled Oxygen Concentration - - Weight 25.3 kg (55 lb 12.4 oz) 05/05/[address] Height 130.8 cm (4' 3.5) 05/05/2012 0928 EST Body Mass Index 14.79 05/05/2012 0928 EST Body Mass Index Percentile 30.76% 05/05/2012 092 8 EST Growth Chart: [facility] (Girls, 2- 20 Years) documented in this encounter Mental Status * Because of a physical, mental, or emotional condition, do you have serious difficulty concentrating, remembering, or making decisions? (5 years old or older) Answer Entry Date Author Yes 02/13/2010 0:00 Mohit Tinajero RN documented in this encounter Patient Instructions * Patient Instructions* Belgica Robles MD - 05/05/2012 9:35 EST 1. Try scheduled bentyl (three times daily) 2. Start daily probiotic (anything with lactobacillus/acidophilus) 3. Increase miralax to 1 capful twice daily 4. Can use tums as needed for regurgitation--if reflux symptoms continue to worsen after taking spicy foods out of the diet, call our office--will call in a new acid karen documented in this encounter Progress Notes * Belgica Robles MD - 05/05/2012 0932 EST TRELL SANON MD [address] [place] [address] Dear TRELL SANON MD: Rosario Ace was seen in [facility] in follow-up for abdominal pain on 05/05/2012. She was accompanied by her mother who provided the history. CC: Abdominal pain HISTORY: Rosario is a 6 yo female with a history of abdominal pain (usually before a bowel movement). Was doing better on fiber supplementation, but recently she has had strep throat and was on abx which madeher stomach pain worse. Was having a bowel movement 2-3x/week. Usually hard. Has some occasional reflux symptoms (regurgitation). PAST MEDICAL, SURGICAL, FAMILY HISTORY, AND SOCIAL [...] mometasone (NASONEX) 50 mcg/actuation nasal spray 1 [place] by Nasal route 2 times daily. ? [...] our visit questionnaire. PHYSICAL EXAM: Blood pressure 111/55, pulse 89, height 130.8 cm (51.5), weight 25.3 kg (55 lb 12.4 oz)., 64.13%ile based on CDC 2-20 Years [id number] data., 88.19%ile based on CDC 2-20 Years fxcsmch-wex-hdh data.,Body mass index is 14.79 kg/(m^2)., 30.76%ile based on CDC 2-20 Years BMI-for-age data. [...] grossly normal. DATA/DIAGNOSTIC STUDIES: Labs: Reviewed in [facility] Radiology: none I have discussed the patient with Rashmi Tabares. I have reviewed the medical record. History obtained from mother and patient. IMPRESSION: 6 yo female with: 1. Primary ciliary dyskinesia 2. Constipation--could use increased miralax 3. Abdominal pain--functional, likely also related to constipation 4. GERD--under relatively good control with prevacid, however having some breakthrough symptoms with spicy foods and acidic juices RECOMMENDATIONS: Patient Instructions 1. Try scheduled bentyl (three times daily) 2. Start daily probiotic (anything with lactobacillus/acidophilus) 3. Increase miralax to 1 capful twice daily 4. Can use tums as needed for regurgitation--if reflux symptoms continue to worsen after taking spicy foods out of the diet, call our office--will call in a new acid karen Plan of care, including education on the safe and effective use of medication(s) and/or medical equipment if prescribed, was discussed with mother. She verbalized understanding and agreed to the treatment options discussed. Belgica Robles MD Pediatric Gastroenterology [facility] documented in this encounter Plan of Treatment Upcoming Encounters Date Type Department Care Team (Late st Contact Info) Description 04/24/2024 15:30 EST Telemedicine [facility] Pediatric Pulmonary - [facility] [address] [place], [place] [address] Lucy Rodgers MD [address] [place] [phone] documented as of this encounter Visit Diagnoses Diagnosis Abdominal pain, generalized- Primary Gastroesophageal reflux disease Esophageal reflux Chronic constipation Unspecified constipation documented in this encounter Care Teams Broke Worker Relationship Specialty Start Date End [place] [address] PCP - General 04/10/09 documented as of this encounter
--- OUTSIDE RECORDS SUMMARY | 2024-03-30 21:49 | XMS_ITS | Encounter Summary ---
Author Organization [facility] Address [address] [place] [address] Care Team Providers Care Mounter Name Role Phone Trell Pittman MD Primary Care Provider [phone] Reason for Visit * Reason Onset Date Comments Testing 07/23/2014 Encounter Details Date Type Department Care Team (Late st Contact Info) Description 07/23/2014 Orders Only [address] [address] Vaishali García RN Asthma (Primary Dx) Social History Tobacco [...] Contact Info) Description 04/24/2024 15:30 EST Telemedicine [address] [phone] Lucy Rodgers MD [address] [place] [phone] documented as of this encounter Visit Diagnoses Diagnosis Asthma- Primary Unspecified asthma documented in this encounter Care Teams Mounter Relationship Specialty Start Date End Date Trell Pittman MD [address] [place] [address] PCP - General 04/10/09 documented as of this encounter
--- OUTSIDE RECORDS SUMMARY | 2024-03-30 21:49 | XMS_ITS | Encounter Summary ---
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); Immotile cilia syndrome Social History [...] Sign Reading Time Taken Comments Blood Pressure 118/58 01/24/2016 1008 EDT Pulse 71 01/24/2016 1008 EDT Temperature - - Respiratory Rate 20 01/24/2016 1008 EDT Oxygen Saturation 100% 01/24/2016 1008 EDT Inhaled Oxygen Concentration - - Weight 41.1 kg (90 lb 9.7 oz) 01/24/2016 1008 ED T Height 153.1 cm (5' 0.28) 01/24/2016 1008 EDT Body Mass Index 17.53 01/24/2016 1008 EDT Body Mass Index Percentile 50.39% 01/24/2016 100 8 EDT Growth Chart: [facility] (Girls, 2- 20 Years) documented [...] Start Date End Date inhalational spacing device (AEROCHAMBER)Indic ations:Moderate persistent asthma without complication Inhale 1 Device as directed daily. Spacer for MDI 1 Device 3 01/24/2016 7 budesonide-formote rol HFA (SYMBICORT) 160-4.5 mcg/actuation HFA aerosol inhaler inhalerIndications :Moderate persistent asthma without complication Inhale 2 Puffs as directed 2 times daily. 3 Inhaler 5 01/24/2016 7 albuterol (PROAIR HFA) 90 mcg/actuation inhalerIndications :Moderate persistent asthma without complication Inhale 2 Puffs as directed every 4 hours as needed for Wheezing (cough, short of breath). 2 Inhaler 3 01/24/2016 7 documented in this encounter Progress Notes * Jason Mohan MD - 01/24/2016 1029 EDT Images from the original note were not included. Pediatric Pulmonology James Franklin M.D., Hayden Pearce, Lucy Rodgers M.D, Jason Mohan M.D. [address] [address] Encounter Date: 01/24/2016 Trell [facility] [id number] Chief Complaint: Rosario is a 10 y.o. 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 Subjective: Rosario has generally been well over the summer. Her mother reported that she had some mild asthma issues over the summer. This was primarily when the weather was hot and humid. Rosario developed a slight cough that resolved without antibiotics or steroids. Over the last few weeks, Rosario has been well from a pulmonary perspective. She has not had nocturnal cough or wheezing. She is active without chest pain, chest tightness, wheezing and dyspnea. She is pre-treating with albuterol prior to exercise. She has not had daytime symptoms of chest pain, chest tightness, wheezing, cough, dyspnea or fatigue. She is using her vest once a day for airway clearance. She uses Acapella as needed. Recently, she has not been using acapella on a regular basis. She has not been diagnosed with pneumonia or bronchitis recently. She has not been seen in the ED since the last visit. She has not been admitted for respiratory symptoms since the last visit. Typical triggers include Infections / Colds, Environmental Allergies, Air Pollution, Dust Mites, Exercise, Cigarette Smoke. Medication Use: Rescue/quick relief medicines: albuterol MDI 2 puffs Preventive/long-term control: ?? budesonide-formoterol (SYMBICORT HFA) 160mcg-4.5mcg 2 inhalations twice daily montelukast (SINGULAIR CHEWABLE TABLET) 5mg by mouth daily Medication adherence: Adherent Proper spacer device and technique: Yes Gastrointestinal/Nutrition: Appetite is good. Diet: healthy diet in general Gastroesophageal reflux symptoms are absent . She has not had abdominal pain, constipation, diarrhea, bloody stool, nausea and vomiting. Diarrhea described at last visit has resolved. Otolaryngology: Rosario has had sneezing for the last week. She has had mild nasal congestion. Rosario has not had sinus pressure, sinus pain, itchy eyes, watery eyes, sore throat, recurrent OM and recurrent sinus infection. Neuro/Sleep: She has had snoring during sleep. No periods of apnea. General Health: Overall behavior and activity has been normal. Normal exercise level: very active She has not had decrease in energy, fever and chills. Environmental History: reports that she has never smoked. She does not have any smokeless tobacco history on file. REVIEW OF SYSTEMS: A review of 10 systems was obtained and was negative except listed above. Past Medical History Diagnosis Date ??? Allergic conjunctivitis ??? Allergic rhinitis dust mites and tree pollen ??? Asthma Always rattley per mom ??? Esophageal reflux ??? Gastroesophageal reflux disease 02/12/2010 Normal EGD/colonoscopy 01/2011 ??? Hearing loss ??? OM (otitis media) ??? Scoliosis ??? Sleeping difficulty ??? Stomach problems ??? Unspecified sinusitis (chronic) Past Surgical History Procedure Laterality Date ??? [...] Outpatient Prescriptions Marked as Taking for the 01/24/16 encounter (Office Visit) with Jason Mohan MD Medication Sig Dispense Refill ??? albuterol (PROAIR HFA) 90 mcg/actuation inhaler Inhale 2 Puffs as directed every 4 hours as needed for Wheezing (cough, short of breath). 2 Inhaler 3 ??? [DISCONTINUED] albuterol (PROAIR HFA) 90 mcg/actuation inhaler Inhale 2-4 Puffs as directed every 4 hours as needed for Wheezing (cough, short of breath). 2 Inhaler 3 ??? albuterol (PROAIR HFA) 90 mcg/actuation inhaler Inhale 2-4 Puffs as directed every 4 hours as needed for Wheezing (cough, short of breath) 1 Inhaler 3 ??? budesonide-formoterol HFA (SYMBICORT) 160-4.5 mcg/actuation HFA aerosol inhaler inhaler Inhale 2 Puffs as directed 2 times daily. 3 Inhaler 5 ??? [DISCONTINUED] budesonide-formoterol HFA (SYMBICORT) 160-4.5 mcg/actuation [...] daily as needed. 1 Device 1 ??? montelukast (SINGULAIR) 5 mg chewable tablet [...] exposures portion of this note. Objective Data Visit Vitals ??? BP 118/58 ??? Pulse 71 ??? Resp 20 ??? Ht 153.1 cm (60.28) ??? Wt 41.1 kg (90 lb 9.7 oz) ??? SpO2 100% ??? BMI 17.53 kg/m2 General Appearance: alert, no acute distress Head: normocephalic, atraumatic Eye: no injection, no discharge, PERRLA Ear: TM's clear bilaterally, canals clear bilaterally Nose: edematous, clear rhinorrhea Mouth\Throat: moist mucosa, posterior pharyngeal cobblestoning, oropharynx without exudate, erythema or thrush Lymph Nodes: no lymphadenopathy Chest\Lungs: Air entry is good bilaterally, wheezing is not appreciated, crackles are not appreciated, no retractions, expiratory phase is within normal limits, cough is absent, transient coarse sounds that cleared after I asked her to cough. These sounds were located centrally and resolved completely. Abdomen: abdomen is soft, nontender, and nondistended without hepatosplenomegaly or masses and normoactive bowel sounds are present Heart: S1/S2 RRR and no murmur Skin: Warm and dry, Cyanosis is absent MSK:Clubbing is absent Diagnostic Data PFT's PFTS (Before Albuterol Treatment) FVC (L): 2.78 liters FVC % Pred: 109 FEV1 (L): 2.58 liters FEV 1 % Pred: 114 FEF 25-75% (L/scc): 3.64 FEF 25-75% Pred: 126 FEV-1/FVC % Pred: 104 PFTS (After Albuterol Treatment) FVC (L) (After Albuterol): 2.82 liters FVC % Pred (After Albuterol): 110 FEV1 (L) (After Albuterol): 2.62 liters FEV 1 % Pred (After Albuterol): 116 FEF 25-75% (L/scc) (After Albuterol): 3.44 FEF 25-75% Pred (After Albuterol): 119 FEV-1/FVC (After Albuterol): 93 Spirometry Interpretation: Spirometry was stable today when compared to baseline without bronchodilator response ATAQ questionnaire: ATAQ Score: 0 X-rays: No x-rays were reviewed during this encounter Assessment and Plan 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 She has been well since the last visit. Asthma: Rosario's symptom control has been good. She has not needed antibiotics or steroids over the summer. I would like her to continue symbicort and montelukast over the winter. We can consider weaning inthe spring. She should continue to pretreat with albuterol prior to exercise and use albuterol as needed for acute symptoms. ?? Preventative Medications: ?? budesonide-formoterol (SYMBICORT HFA) 160mcg-4.5mcg 2 inhalations twice daily montelukast (SINGULAIR CHEWABLE TABLET) 5mg by mouth daily ?? Rescue Medications: ?? Yellow Zone: albuterol MDI 2 puffs ?? Red Zone: albuterol MDI 4 puffs ?? Exercise Pre-treatment: albuterol MDI 2 puffs ?? Symptomatic treatments reviewed. ?? Patient's condition, differential diagnosis, and Treatment Plan reviewed. ?? Teaching provided for the listed diagnoses and/or medications. ?? Spacer use discussed. ?? Medications per orders. ?? Follow up if symptoms persist, increase, or as instructed. ?? Seasonal Influenza Vaccine: will receive when available. Immotile Cilia Syndrome She has not needed antibiotics recently. Her adherence to airway clearance is ok now. I recommendedthat she increased acapella use to 1-2 times a day over the winter. I wrote a note for school so they can use the vest or acapella at school. ?? Vest 1-2 times a day ?? Acapella 1-2 times a day ?? Genetic testing at next visit. I discussed the treatment plan with her mother. Enrollment in [employer]: Reviewed. Patient will enroll at home. Return to clinic in 3 months. Please feel free to contact us with questions or comments regarding Rosario's care. 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 02/02/2011 01/24/2016 lactobacillus rhamnosus, GG, (CULTURELLE) 10 billion cell capsuleIndications:Diar uche Take 1 Cap by mouth daily 05/24/2015 01/24/2016 mometasone (NASONEX) 50 mcg/actuation nasal spray 1 [place] by Nasal route 2 times daily. 01/24/2016 albuterol (PROAIR HFA) 90 mcg/actuation inhaler Inhale 2-4 Puffs as directed every 4 hours as needed for Wheezing (cough, short of breath). Reorder 07/22/2015 01/24/2016 budesonide-formoterol HFA (SYMBICORT) 160-4.5 mcg/actuation HFA aerosol inhaler inhaler Inhale 2 Puffs as directed 2 times daily Reorder 03/22/2015 01/24/2016 inhalational spacing device (AEROCHAMBER) Inhale 1 Device as directed daily as needed. Reorder 08/08/2012 01/24/2016 documented as of this encounter Care Teams Manager Poker Relationship Specialty Start Date End Date Trell Pittman MD [address] [place] [address] [place] [address] PCP - General 04/10/09 documented as of this encounter
--- OUTSIDE RECORDS SUMMARY | 2024-03-30 21:49 | XMS_ITS | Encounter Summary ---
Author Organization [facility] Address [address] [place] [address] Care Team Providers Care Epic Cupid Analyst Name Role Phone Trell Pittman MD Primary Care Provider [phone] [phone] Encounter Details Date Type Department Care Team (Late st Contact Info) Description 08/08/2012 12:51 EDT - 08/08/2012 23:59 EDT Hospital Encounter [facility] - [facility] [address] [place], [place] [id number] Unknown, Provider, James Reyna MD [address] [place] [address] Discharge Disposition: Auto Discharge Social [...] needed for Pain. 300 mL 6 08/08/2012 3 fluticasone-salm eterol (ADVAIR HFA) 115-21 mcg/actuation inhaler Inhale 2 Puffs as directed 2 times daily. 36 g 5 08/08/2012 3 inhalational spacing device (AEROCHAMBER) Inhale 1 Device as directed daily as needed. 1 Device 1 08/08/2012 6 lactobacillus rhamnosus, GG, (CULTURELLE) 10 billion cell capsule Take 1 Cap by mouth daily. 90 Cap 3 08/08/2012 6 lansoprazole (PREVACID) 30 mg capsule Take 1 Cap by mouth daily. 90 Cap 3 08/08/2012 3 levalbuterol (XOPENEX HFA) 45 mcg/actuation inhaler Inhale 2 Puffs as directed every 4 hours as needed. 1 Inhaler 6 08/08/2012 9 mometasone (NASONEX) 50 mcg/actuation nasal spray 1 [place] by Nasal route 2 times daily. 6 montelukast (SINGULAIR) 5 mg chewable tablet Take 1 Tab by mouth every evening. 30 Tab 6 03/18/2011 4 Multivitamins with Minerals Tab Take 1 Tab by mouth three times a week. 6 polyethylene glycol (GLYCOLAX) 17 gram/dose powder Take 17 g by mouth daily. 527 g 11 08/08/2012 6 sodium chloride 7 % Nebu Take 4 mL by nebulization 2 times daily. 60 Ampule 5 05/05/2012 3 documented as of this encounter Discharge Disposition Disposition Code Departure Means Destination Auto Discharge Home documented in this encounter Progress Notes * Tiffanie Cook, RT - 08/08/2012 1319 EDT Testing was performed and recorded in [employer]. See complete report in scanned documents. documented in this encounter Plan of Treatment Upcoming Encounters Date Type Department Care Team (Late st Contact Info) Description 04/24/2024 15:[address] [facility] Pediatric Pulmonary - Main [address] [address] Lucy Rodgers MD [address] [place] [address] documented as of this encounter Visit Diagnoses Not on filedocumented in this encounter Administered Medications Inactive Administered Medications - up to 3 most recent administrations Medication Order MAR Action Action Date Dose Rate Site albuterol (VENTOLIN HFA) inhaler 2 Puff 2 Puff, inhalation, Once (Without Time Specified), 1 dose, Starting on Wed08/08/12 at 1345, Until Wed08/08/12 at 1310, Routine Given 08/08/2012 13:10 EDT 2 Puffs documented in this encounter Orders Medications Ordered That Janes ht Not Have Been Administered Count Last Ordered Date First Ordered Date albuterol (VENTOLIN HFA) inhaler 2 Puff 1 0 08/08/2012 documented in this encounter Care Teams Epic Cupid Analyst Relationship Specialty Start Date End Date Trell Pittman MD [address] [place] [address] PCP - General 04/10/09 documented as of this encounter
--- OUTSIDE RECORDS SUMMARY | 2024-03-30 21:49 | XMS_ITS | Encounter Summary ---
Author Organization [facility] Address [address] [place] [address] Care Team Providers Care Clamp Operator Name Role Phone Trell Pittman MD Primary Care Provider [phone] [phone] Reason for Visit * Reason Onset Date Comments Letter for School/Work 01/01/2012 Encounter Details Date Type Department Care Team (Late st Contact Info) Description 01/01/2012 Telephone [facility] Pediatric Pulmonary - [facility] [address] [place] [address] James Franklin MD [address] [place] [address] Letter for School/Work Social History Tobacco Use [...] encounter Miscellaneous Notes * Telephone Encounter - Arin Avila - 01/01/2012 1320 EDT Rosario's mother is calling to request a letter sent to Rosario school before start of school year.This is what the letter needs to contain: ?? 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 please explain diagnosis of primary ciliary dyskinesia as school nurses not aware of what this entails.) ?? that she sees GI (dr. Robles) ?? that she has an airway clearance vest needs permission to do twice a day at school, ?? xopenex before Gym and any outside activities ?? sometime nebulizer in winter (state either inhaler or nebulizer) ?? on Bentyl per GI so also may need to take at school, ?? on Miralax so may need restroom privileges on demand. ?? A list of medications she is taking. Parent states she is going to new school: [employer] their fax number is [phone]- [facility] office , letter needs to be there before week of 01/10. documented in this encounter Plan of Treatment Upcoming Encounters Date Type Department Care Team (Late st Contact Info) Description 04/24/2024 15:30 EST Telemedicine [facility] Pediatric Pulmonary - [address] [id number] Lucy Rodgers MD [address] [place] [phone] documented as of this encounter Visit Diagnoses Not on filedocumented in this encounter Care Teams Clamp Operator Relationship Specialty Start Date End Date Trell Pittman MD [address] [place] [address] PCP - General 04/10/09 documented as of this encounter
--- OUTSIDE RECORDS SUMMARY | 2024-03-30 21:49 | XMS_ITS | Encounter Summary ---
Author Organization [facility] Address [address] [place] [address] Care Team Providers Care Carrier Operator Name Role Phone Trell Pittman MD Primary Care Provider [phone] [phone] Encounter Details Date Type Department Care Team (Latest Contact Info) Description 02/06/2013 12:23 EDT - 02/06/2013 23:59 EDT Hospital Encounter [facility] Pulmonary Function Lab - [facility] [address] [place] [address] Asthma; Immotile cilia syndrome; Gastroesophageal reflux disease Discharge Disposition: Home or Self Care Social [...] mometasone (NASONEX) 50 mcg/actuation nasal spray 1 [place] by Nasal route 2 times daily. 6 [...] Code Departure Means Destination Home or Self Detention documented in this encounter Progress Notes * Soraya Bosch RT - 02/06/2013 1257 EDT Testing was performed and recorded in [employer]. See complete report in scanned documents. documented in this encounter Plan of Treatment Upcoming Encounters Date Type Department Care Team (Late st Contact Info) Description 04/24/2024 15:30 EST Telemedicine [facility] Pediatric Pulmonary - Main [place] [address] [place] [address] Lucy Rodgers MD [address] [place] [phone] documented as of this encounter Visit Diagnoses Diagnosis Asthma Unspecified asthma Immotile cilia syndrome Situs inversus Gastroesophageal reflux disease Esophageal reflux documented in this encounter Administered Medications Inactive Administered Medications - up to 3 most recent administrations Medication Order MAR Action Action Date Dose Rate Site albuterol (VENTOLIN HFA) inhaler 2 Puff 2 Puff, inhalation, Once (Without Time Specified), 1 dose, Starting on Wed02/06/13 at 1315, Until Wed02/06/13 at 1246, Routine Given 02/06/2013 12:46 EDT 2 Puffs documented in this encounter Orders Medications Ordered That Janes ht Not Have Been Administered Count Last Ordered Date First Ordered Date albuterol (VENTOLIN HFA) inhaler 2 Puff 1 0 02/06/2013 documented in this encounter Care Teams Carrier Operator Relationship Specialty Start Date End Date Trell Pittman [place] [address] PCP - General 04/10/09 documented as of this encounter
--- OUTSIDE RECORDS SUMMARY | 2024-03-30 21:49 | XMS_ITS | Encounter Summary ---
Author Organization [facility] Address [address] [place] [address] Care Team Providers Care Glueline Worker Name Role Phone Trell Pittman MD Primary Care Provider [phone] [phone] Reason for Visit * Reason Onset Date Comments Appointment Related 03/02/2012 Encounter Details Date Type Department Care Team (Late st Contact Info) Description 03/02/2012 Telephone [facility] Pediatric Pulmonary - [facility] [address] [place] [address] James Franklin MD [address] [place] [address] Appointment Related Social History Tobacco [...] * Telephone Encounter - Eloisa Arellano - 03/02/2012 1424 EDT Left voice mail that appointments are scheduled for 05/05/12. * Telephone Encounter - Harley Melton - 03/02/2012 1306 EDT Calling to schedule a follow up appointment with Dr. Franklin and Dr. Robles in GI. Please coordinate appointment can call mom. documented in this encounter Plan of Treatment Upcoming Encounters Date Type Department Care Team (Late st Contact Info) Description 04/24/2024 15:30 EST Telemedicine [facility] Pediatric Pulmonary - [address] [id number] Lucy Rodgers MD [address] [place] [phone] documented as of this encounter Visit Diagnoses Not on filedocumented in this encounter Care Teams Glueline Worker Relationship Specialty Start Date End Date Trell Pittman MD [address] [place] [address] PCP - General 04/10/09 documented as of this encounter
--- OUTSIDE RECORDS SUMMARY | 2024-03-30 21:50 | XMS_ITS | Encounter Summary ---
Author Organization [facility] Address [address] [place] [address] Care Team Providers Care Career Professional Name Role Phone Trell Pittman MD Primary Care Provider [phone] [phone] Encounter Details Date Type Department Care Team (Latest Contact Info) Description 06/26/2011 8:30 EST Hospital Encounter [facility] Pulmonary Function Lab - [facility] [address] [place], [place] [phone] Discharge Disposition: Home or Self Care Social [...] Take by mouth. 1 tsp qd 6 fluticasone-salm eterol (ADVAIR HFA) 115-21 mcg/Actuation inhaler Inhale 2 Puffs as directed 2 times daily. Use with spacer 1 Inhaler 5 12/22/2010 2 inhalational spacing device (AEROCHAMBER) Inhale 1 Device as directed daily as needed. 1 Device 1 12/22/2010 3 levalbuterol (XOPENEX HFA) 45 mcg/Actuation inhaler Inhale 2 Puffs as directed every 4 hours as needed. 1 Inhaler 6 02/12/2011 3 montelukast (SINGULAIR) 5 mg chewable tablet Take 1 Tab by mouth every evening. 30 Tab 6 03/18/2011 4 Multivitamins with Minerals Tab Take 1 Tab by mouth three times a week. 6 PREVACID 30 mg capsule take 1 capsule [...] Code Departure Means Destination Home or Self Jail documented in this encounter Progress Notes * Gricel Mccrary RT - 06/26/2011 0933 EST Testing was performed and recorded in [employer]. See complete report in scanned documents. documented in this encounter Procedure Notes * COUNTER WAITER, SCAN 2 - 08/02/2011 1015 EDTAssociated Order(s): PULMONARY FUNCTION LAB REPORT - SCANNED documented in this encounter Plan of Treatment Upcoming Encounters Date Type Department Care Team (Late st Contact Info) Description 04/24/2024 15:30 EST Telemedicine [facility] Pediatric Pulmonary - Main [place] [address] [place] [address] Luyc Rodgers MD [address] [place] [phone] documented as of this encounter Procedures Procedure Name Priority Date/Time Associated Diagnosis Comments PULMONARY FUNCTION REPORT - SCANNED 08/02/2011 10:15 EDT documented in this encounter Results * PULMONARY FUNCTION LAB REPORT - SCANNED (08/02/2011 10:15 EDT) 08/02/2011 10:1 5 EDT Narrative Transcriptions COUNTER WAITER, SCAN 2 - 08/02/2011 10:15 EDT us Scan 2 [employer]inder PROCEDURE/MINOR SURGICAL OR DERABLES Final Result documented in this encounter Visit Diagnoses Not on filedocumented in this encounter Care Teams Career Professional Relationship Specialty Start Date End Date Trell Pittman MD [address] [place] [address] [place] [address] PCP - General 04/10/09 documented as of this encounter
--- OUTSIDE RECORDS SUMMARY | 2024-03-30 21:50 | XMS_ITS | Encounter Summary ---
Author Organization [facility] Address [address] [place] [address] Care Team Providers Care Academic Vice President Name Role Phone Trell Pittman MD Primary Care Provider +1 [phone] Encounter Details Date Type Department Care Team (Late st Contact Info) Description 03/18/2011 Phlebotomy Only [address] [address] Production Support Consultant, Outpatient Ciliary dyskinesia, primary; Chronic obstructive asthma, unspecified Social History Tobacco Use Types Packs/Day Years Used Date Smoking Tobacco: Never Comments:No more smoke expos ure Comments Unknown Sex and Gender Information Value [...] EST Telemedicine [facility] Pediatric Pulmonary - [address] [phone] Lucy Rodgers MD [address] [place] [phone] documented as of this encounter Procedures Procedure Name Priority Date/Time Associated Diagnosis Comments CYSTIC FIBROSIS RESPIRATORY CULTURE, SWAB Routine 03/18/2011 15:43 EDT Ciliary dyskinesia, primary Chronic obstructive asthma, unspecified documented in this encounter Results * CYSTIC FIBROSIS RESPIRATORY CULTURE, SWAB (03/18/2011 15:43 EDT) Specimen Description Throat [facility] Result Heavy Usual tiff-pharyn geal ana [facility] Report Status 03/23/2011 Final [facility] Specimen from throat (specimen) 03/18/2011 15:43 EDT 03/18/2011 15:45 EDT us Jason Mohan MD MICROBIOLOGY - GENERAL ORDERABLES Final Result Performing Organization Address City/State/[facility] [[email or web address]] Co de Phone Number [facility] [address] [place] [address] documented in this encounter Visit Diagnoses Diagnosis Ciliary dyskinesia, primary Situs inversus Chronic obstructive asthma, unspecified documented in this encounter Care Teams Academic Vice President Relationship Specialty Start Date End Date Trell Pittman MD [address] [place] [address] [place] [address] PCP - General 04/10/09 documented as of this encounter
--- OUTSIDE RECORDS SUMMARY | 2024-03-30 21:50 | XMS_ITS | Encounter Summary ---
Author Organization [facility] Address [address] [place] [address] Care Team Providers Care Glassblower Name Role Phone Trell Pittman MD Primary Care Provider +1 [phone] Reason for Visit * Reason Comments Gastroesophageal Reflux Encounter Details Date Type Department Care Team (Late st Contact Info) Description 06/26/2011 12:30 EST Office Visit [facility] - [facility] [address] [place] [address] Sherley Santana, GLASSWARE DEFECT REPAIRER [address] [phone] GERD (gastroesophageal reflux disease); Constipation, chronic Social [...] Sign Reading Time Taken Comments Blood Pressure 105/58 06/26/2011 1220 EST Pulse - - Temperature - - Respiratory Rate - - Oxygen Saturation - - Inhaled Oxygen Concentration - - Weight 22 kg (48 lb 8 oz) 06/26/2011 1220 EST Height 123.7 cm (4' 0.7) 06/26/2011 1220 EST Body Mass Index 14.38 06/26/2011 1220 EST Body Mass Index Percentile 24.26% 06/26/2011 122 0 EST Growth Chart: [facility] (Girls, 2- 20 Years) documented in this encounter Mental Status * Because of a physical, mental, or emotional condition, do you have serious difficulty concentrating, remembering, or making decisions? (5 years old or older) Answer Entry Date Author Yes 02/13/2010 0:00 EDT Mohit Yusuf RN documented in this encounter Patient Instructions * Patient Instructions* Sherley Santana - 06/26/2011 12:40 EST Continue the Prevacid 30 mg daily. Continue one capful of miralax once daily. Follow up in 6 months. Call with any concerns or questions. Please call with any questions or concerns ( [phone]). CANDIDO Chiang works Wednesday, Wednesday, , and Wednesday mornings. documented in this encounter Ordered Prescriptions Prescription Sig Dispense Quantity Refills Last Filled Start Date End Date polyethylene glycol (MIRALAX) 17 gram/dose powder Take 17 g by mouth daily. 1 Bottle 3 06/26/2011 11/03/2011 documented in this encounter Progress Notes * Sherley Santana - 06/26/2011 1137 EST Problem: Chief Complaint Patient presents with ??? Gastroesophageal Reflux History obtained from father. Subjective: Rosario Ace returns to the pediatric GI and nutrition clinic for a follow up visit. This is her first visit since her endoscopy and colonoscopy on 02/04/11. She has done very well since that time. She does not have any abdominal pain or vomiting. She rarely has regurgitation. She is eating well and gaining weight well. She is active. She has a soft bowel movement daily. There has not been any blood in her stools. She was seen by pediatric pulmonology today. She has had less cough and nasal congestion since moving out of a house with smoking. Current Outpatient Prescriptions Medication Sig Dispense Refill ??? polyethylene glycol (MIRALAX) 17 gram/dose powder Take 17 g by mouth daily. 1 Bottle 3 ??? UNABLE TO FIND Take 7 [...] directed daily as needed. 1 Device1 ??? fluticasone-salmeterol (ADVAIR HFA) 115-21 mcg/Actuation inhaler Inhale 2 Puffs as directed 2 times daily. Use with spacer 1 Inhaler 5 ??? cetirizine (ZYRTEC) 1 mg/mL Soln Take by mouth. 1 tsp qd ??? azithromycin (ZITHROMAX) 200 mg/5 mL suspension Take 5 mL by mouth three times a week. Take 1 tsp by mouth (5ml) three times per week (M,W, F) 60 mL 2 ??? Multivitamins with Minerals Tab Take 1 Tab by mouth three times a week. Patient Active Problem List Diagnoses ??? Unspecified Chronic Suppurative Otitis Media ??? Primary ciliary dyskinesia ??? Asthma ??? GERD (gastroesophageal reflux disease) ??? Constipation, chronic ??? Simple or unspecified chronic serous otitis media Objective: BP 105/58 Ht 123.7 cm (48.7) Wt 22 kg (48 lb 8 oz) BMI 14.38 kg/m2 Body mass index is 14.38 kg/(m^2). 24.27% of growth percentile based on BMI-for-age. General appearance: alert, no distress Head: Normocephalic, without obvious abnormality, atraumatic Lungs: clear to auscultation bilaterally Heart: regular rate and rhythm, S1, S2 normal, no murmur, click, rub or gallop Abdomen: soft, non-tender; bowel sounds normal; no masses, no organomegaly Extremities: warm and well perfused. Assessment: Rosario Ace is a 5 y.o. female with gastroesophageal reflux, constipation, probable primary ciliary dyskinesia and asthma who is doing very well on her current dose of miralax and prevacid. Plan: Patient Instructions Continue the Prevacid 30 mg daily. Continue one capful of miralax once daily. Follow up in 6 months. Call with any concerns or questions. Please call with any questions or concerns ( [phone]). CANDIDO Chiang works Wednesday, Wednesday, , and Wednesday mornings. Visit questionnaire and EMR was reviewed. Patient Education: Method: verbal Taught to family No barriers Family verbalized understanding. documented in this encounter Plan of Treatment Upcoming Encounters Date Type Department Care Team (Late st Contact Info) Description 04/24/2024 15:30 EST Telemedicine [facility] Pediatric Pulmonary - [facility] [place] [address] [place], [place] [phone] Lucy Rodgers MD [address] [place] [phone] documented as of this encounter Visit Diagnoses Diagnosis GERD (gastroesophageal reflux disease) Esophageal reflux Constipation, chronic Unspecified constipation documented in this encounter Discontinued Medications Medication Sig Discontinue Reason Start Date End Da te WHEAT DEXTRIN (CHILDREN'S BENEFIBER ORAL) Take by mouth. Therapy completed 06/26/2011 ketotifen (ZADITOR) 0.025 % ophthalmic solution Place 2 Drops into both eyes 2 times daily. Therapy completed 06/26/2011 lidocaine-prilocaine (EMLA) creamIndications:GERD (gastroesophageal reflux disease),Unspecified constipation Apply topically. Prior to procedure Therapy completed 01/28/2011 06/26/2011 POLYETHYLENE GLYCOL 3350 (MIRALAX ORAL) Take 1 Cap by mouth daily. Varies 1-1/2 caps per day 07/29/2010 06/26/2011 documented as of this encounter Care Teams Glassblower Relationship Specialty Start Date End Date Trell Pittman MD [address] [place] [address] PCP - General 04/10/09 documented as of this encounter
--- OUTSIDE RECORDS SUMMARY | 2024-03-30 21:50 | XMS_ITS | Encounter Summary ---
Author Organization [facility] Address [address] [place] [address] Care Team Providers Care Isolation Washer Name Role Phone Trell Pittman MD Primary Care Provider [phone] [phone] Encounter Details Date Type Department Care Team (Latest Contact Info) Description 02/04/2011 13:50 EDT - 02/04/2011 23:59 EDT Hospital Encounter [facility] Endoscopy - [facility] [address] [place], [place] [id number] [facility] [place] Room Discharge Disposition: Home or Self Care Social [...] Take by mouth. 1 tsp qd 6 fluticasone-salmet vini (ADVAIR HFA) 115-21 mcg/Actuation inhaler Inhale 2 Puffs as directed 2 times daily. Use with spacer 1 Inhaler 5 12/22/2010 2 inhalational spacing device (AEROCHAMBER) Inhale 1 Device as directed daily as needed. 1 Device 1 12/22/2010 3 ketotifen (ZADITOR) 0.025 % ophthalmic solution Place 2 Drops into both eyes 2 times daily. 2 lansoprazole (PREVACID) 30 mg capsule Take 30 mg by mouth daily. 1 levalbuterol (XOPENEX HFA) 45 mcg/Actuation inhaler Inhale 2 Puffs as directed every 4 hours as needed. 1 Inhaler 6 02/04/2011 1 lidocaine-prilocai ne (EMLA) creamIndications:G ERD (gastroesophageal reflux disease),Unspecifi ed constipation Apply topically. Prior to procedure 1 Tube 0 01/28/2011 2 Multivitamins with Minerals Tab Take 1 Tab by mouth three times a week. 6 PEDI MVI NO.12/SODIUM FLUORIDE (MVC-FLUORIDE ORAL) Take by mouth. 1 polyethylene glycol (MIRALAX) 17 gram/dose powderIndications: GERD (gastroesophageal reflux disease),Unspecifi ed constipation Take 238 g by mouth once for 1 dose. Mix 14 capfuls in 64 ounces of gatorade and drink over 6 hours on Thursday 02/01 for colo prep 238 g 0 01/28/2011 1 POLYETHYLENE GLYCOL 3350 (MIRALAX ORAL) Take 1 Cap by mouth daily. Varies 1-1/2 caps per day 07/29/2010 2 PREVACID 30 mg capsule Take 1 Cap by mouth daily for 90 days. 90 Cap 2 08/27/2010 1 sodium chloride sinus rinse (NEILMED SINUS RINSE) Pack 1 Kit by Nasal route as needed for Other. 1 Kit 5 02/04/2011 2 WHEAT DEXTRIN (CHILDREN'S BENEFIBER ORAL) Take by mouth. 06/26 2 documented as of this encounter Discharge Disposition Disposition Code Departure Means Destination Home or Self Long Term documented in this encounter Plan of Treatment Upcoming Encounters Date Type Department Care Team (Late st Contact Info) Description 04/24/2024 15:30 EST Telemedicine [facility] Pediatric Pulmonary - [address] [phone] Lucy Rodgers MD [address] [place] [phone] documented as of this encounter Visit Diagnoses Not on filedocumented in this encounter Care Teams Isolation Washer Relationship Specialty Start Date End Date Trell Pittman MD [address] [place] [address] PCP - General 04/10/09 documented as of this encounter
--- OUTSIDE RECORDS SUMMARY | 2024-03-30 21:50 | XMS_ITS | Encounter Summary ---
Author Organization [facility] Address [address] [place] [address] Care Team Providers Care Mirror Installer Name Role Phone Trell Pittman MD Primary Care Provider [phone] [phone] Reason for Visit * Reason Onset Date Comments Letter for School/Work 05/25/2011 Encounter Details Date Type Department Care Team (Late st Contact Info) Description 05/25/2011 Telephone [facility] Pediatric Pulmonary - [facility] [address] [place] [address] Ethan-Paulina Wells, RAÚL [address] [place] [address] Letter for School/Work Social History Tobacco Use [...] encounter Miscellaneous Notes * Telephone Encounter - Paulina Long RN - 05/26/2011 0822 EST Letter faxed to [facility] school nurse. * Telephone Encounter - Paulina Long RN - 05/25/2011 7767 EST Mom called stating she needs a note for school indicating that Rosario needs airway clearance usingher vest for 20 minutes daily between 10:00 and noon. It can be faxed attn Aleisha at [phone]. I willdiscuss with Dr. Franklin documented in this encounter Plan of Treatment Upcoming Encounters Date Type Department Care Team (Late st Contact Info) Description 04/24/2024 15:30 EST Telemedicine [facility] Pediatric Pulmonary - [address] [phone] Lucy Rodgers MD [address] [place] [phone] documented as of this encounter Visit Diagnoses Not on filedocumented in this encounter Care Teams Mirror Installer Relationship Specialty Start Date End Date Trell Pittman MD [address] [place], [place] [address] PCP - General 04/10/09 documented as of this encounter
--- OUTSIDE RECORDS SUMMARY | 2024-03-30 21:50 | XMS_ITS | Encounter Summary ---
Author Organization [facility] Address [address] [place] [address] Care Team Providers Care Audit Specialist Name Role Phone Trell Pittman MD Primary Care Provider +1 [phone] Reason for Visit * Reason Comments Other Encounter Details Date Type Department Care Team (Late st Contact Info) Description 12/06/2011 Refill [facility] Pediatric Pulmonary - [facility] [address] [place], [place] [address] James Franklin MD [address] [place] [phone] Other Social History Tobacco Use [...] Refills Last Filled Start Date End Date ADVAIR HFA 115-21 mcg/actuation inhaler inhale 2 puffs twice a day VIA SPACER 36 g 0 12/06/2011 12/08/2011 documented in this encounter Miscellaneous Notes * Telephone Encounter - Bushra Castro RN - 12/07/2011 0934 EDT Refilled advair inhaler as per request and chart review. documented in this encounter Plan of Treatment Upcoming Encounters Date Type Department Care Team (Late st Contact Info) Description 04/24/2024 15:30 EST Telemedicine [facility] Pediatric Pulmonary - [facility] [address] [place], [place] [phone] Lucy Rodgers MD [address] [place] [phone] documented as of this encounter Visit Diagnoses Not on filedocumented in this encounter Discontinued Medications Medication Sig Discontinue Reason Start Date End Da te fluticasone-salmeterol (ADVAIR HFA) 115-21 mcg/Actuation inhaler Inhale 2 Puffs as directed 2 times daily. Use with spacer Reorder 12/22/2010 12/06/2011 documented as of this encounter Care Teams Audit Specialist Relationship Specialty Start Date End Date Trell Pittman MD [address] [place] [address] PCP - General 04/10/09 documented as of this encounter
--- OUTSIDE RECORDS SUMMARY | 2024-03-30 21:50 | XMS_ITS | Encounter Summary ---
Author Organization [facility] Address [address] [place] [address] Care Team Providers Care Claim Approver Name Role Phone Trell Pittman MD Primary Care Provider [phone] [phone] Reason for Visit * Reason Onset Date Comments Medications Refill 02/04/2011 Encounter Details Date Type Department Care Team (Late st Contact Info) Description 02/04/2011 Refill [facility] Pediatric Pulmonary - [facility] [address] [place] [address] Bushra Castro RN [address] [place] [address] Medications Refill Social History Tobacco Use Types [...] Filled Start Date End Date sodium chloride sinus rinse (NEILMED SINUS RINSE) Pack 1 Kit by Nasal route as needed for Other. 1 Kit 5 02/04/2011 2 levalbuterol (XOPENEX HFA) 45 mcg/Actuation inhaler Inhale 2 Puffs as directed every 4 hours as needed. 1 Inhaler 6 02/04/2011 1 documented in this encounter Miscellaneous Notes * Telephone Encounter - Bushra Castro - 02/04/2011 5588 EDT Sent refills as requested for nasal rinse kit and xopenex inhaler. documented in this encounter Plan of Treatment Upcoming Encounters Date Type Department Care Team (Late st Contact Info) Description 04/24/2024 15:30 EST Telemedicine [facility] Pediatric Pulmonary - [facility] [address] [place] [address] Lucy Rodgers MD [address] [place] [phone] documented as of this encounter Visit Diagnoses Not on filedocumented in this encounter Discontinued Medications Medication Sig Discontinue Reason Start Date End Da te levalbuterol (XOPENEX HFA) 45 mcg/Actuation inhaler Inhale 2 Puffs as directed every 4 hours as needed. Reorder 02/04/2011 sodium chloride sinus rinse (NEILMED SINUS RINSE) Pack 1 Kit by Nasal route as needed. Reorder 02/04/2011 documented as of this encounter Care Teams Claim Approver Relationship Specialty Start Date End Date Trell Pittman MD [address] [place] [address] [place] [address] PCP - General 04/10/09 documented as of this encounter
--- OUTSIDE RECORDS SUMMARY | 2024-03-30 21:50 | XMS_ITS | Encounter Summary ---
Author Organization [facility] Address [address] [place] [address] Care Team Providers Care Party Host Name Role Phone Trell Pittman MD Primary Care Provider [phone] [phone] Reason for Visit * Reason Onset Date Comments Medication Problem 02/11/2011 Encounter Details Date Type Department Care Team (Late st Contact Info) Description 02/11/2011 Refill [facility] Pediatric Pulmonary - [facility] [address] [place] [address] James Franklin MD [address] [place] [address] Medication Problem Social History Tobacco [...] Refills Last Filled Start Date End Date levalbuterol (XOPENEX HFA) 45 mcg/Actuation inhaler Inhale 2 Puffs as directed every 4 hours as needed. 1 Inhaler 6 02/12/2011 3 documented in this encounter Miscellaneous Notes * Telephone Encounter - Harley Melton. - 02/11/2011 0849 EDT The pharmacy is saying that they havent received a prescription request from our office for xopenix, please give them a call to get this filled. documented in this encounter Plan of Treatment Upcoming Encounters Date Type Department Care Team (Late st Contact Info) Description 04/24/2024 15:30 EST Telemedicine [facility] Pediatric Pulmonary - [facility] [address] [place], [place] [phone] Lucy Rodgers MD [address] [place] [phone] documented as of this encounter Visit Diagnoses Not on filedocumented in this encounter Discontinued Medications Medication Sig Discontinue Reason Start Date End Da te levalbuterol (XOPENEX HFA) 45 mcg/Actuation inhaler Inhale 2 Puffs as directed every 4 hours as needed. Reorder 02/04/2011 02/12/2011 documented as of this encounter Care Teams Party Host Relationship Specialty Start Date End Date Trell Pittman MD [address] [place] [address] PCP - General 04/10/09 documented as of this encounter
--- OUTSIDE RECORDS SUMMARY | 2024-03-30 21:50 | XMS_ITS | Encounter Summary ---
Author Organization [facility] Address [address] [place] [address] Care Team Providers Care Set Up Mechanic Stamping Machines Name Role Phone Trell Pittman MD Primary Care Provider [phone] [phone] Reason for Visit * Reason Onset Date Comments Val 07/27/2011 Encounter Details Date Type Department Care Team (Late st Contact Info) Description 07/27/2011 Telephone [facility] ENT- [facility] [address] [place] [address] Belen Butcher LPN Otalgia Social History Tobacco Use Types Packs/Day Years [...] encounter Miscellaneous Notes * Telephone Encounter - Belen Butcher LPN - 07/27/2011 5459 EDT Mother calls. Child with bilateral ear pain . Has PETS. No drainage. Pt has been on Augmentin for ten days for URI. Mother instructed she may try cCprodex drops. Offered and accepted appt to be seen tomorrow at 9:50 AM. documented in this encounter Plan of Treatment Upcoming Encounters Date Type Department Care Team (Late st Contact Info) Description 04/24/2024 15:30 EST Telemedicine [facility] Pediatric Pulmonary - [address] [phone] Lucy Rodgers MD [address] [place] [phone] documented as of this encounter Visit Diagnoses Not on filedocumented in this encounter Care Teams Set Up Mechanic Stamping Machines Relationship Specialty Start Date End Date Trell Pittman MD [address] [place] [address] PCP - General 04/10/09 documented as of this encounter
--- OUTSIDE RECORDS SUMMARY | 2024-03-30 21:50 | XMS_ITS | Encounter Summary ---
Author Organization [facility] Address [address] [place] [address] Care Team Providers Care Segmental Wall Installer Name Role Phone Trell Pittman MD Primary Care Provider +1 [phone] Reason for Visit * Reason Onset Date Comments Follow-up 03/23/2011 Results 03/23/2011 Encounter Details Date Type Department Care Team (Late st Contact Info) Description 03/23/2011 Telephone [facility] Pediatric Pulmonary - [facility] [address] [place] [address] Jason Mohan MD [address] [place] [phone] Follow-up; Results Social History Tobacco Use Types Packs/Day [...] Telephone Encounter - Vaishali García RN - 03/24/2011 0724 EST Spoke with mom, she is doing o.k. Getting a bit better. Let her know that her cx was normal. * Telephone Encounter - Arin Avila. - 03/23/2011 1630 EST Mother left a different number as she does not get coverage at her house. * Telephone Encounter - Harley Melton. - 03/23/2011 0829 EST Calling to report that she is doing much better, still a little raspy. Would like to know the results from cultures. documented in this encounter Plan of Treatment Upcoming Encounters Date Type Department Care Team (Late st Contact Info) Description 04/24/2024 15:30 EST Telemedicine [facility] Pediatric Pulmonary - [facility] [address] [place], [place] [address] Lucy Rodgers MD [address] [place] [phone] documented as of this encounter Visit Diagnoses Not on filedocumented in this encounter Care Teams Segmental Wall Installer Relationship Specialty Start Date End Date Trell [place] [address] PCP - General 04/10/09 documented as of this encounter
--- OUTSIDE RECORDS SUMMARY | 2024-03-30 21:50 | XMS_ITS | Encounter Summary ---
Author Organization [facility] Address [address] [place] [address] Care Team Providers Care Vice President Education Name Role Phone Trell Pittman MD Primary Care Provider [phone] [phone] Reason for Visit * Reason Onset Date Comments Otalgia 11/22/2011 right ear Encounter Details Date Type Department Care Team (Late st Contact Info) Description 11/25/2011 Telephone [facility] ENT- [facility] [place] [address] [place] [address] Belen Butcher LPN Otalgia (right ear) Social History Tobacco Use Types Packs/Day Years [...] Telephone Encounter - Belen Butcher LPN - 11/25/2011 0810 EDT Mother calls. Child with bilateral PETS awoke on 7/8/12 With c/o right ear pain and drainage. Pt also reports a white seed came out of her ear. Seen by PCP and mother started Ciprodex drops. Per mother patient ws doing well until today when c/o ear sizziling when father tried to instill drops. Pt c/o right ear pain. Mother reports child has been swimming a lot ii both the cuellar and pool. Mother calling for advice. Due to distance of travel mother will have child seen by PCP and keep f/u apptwith Dr. Spears on 12/08/11. Mother will attempt to continue with Ciprodex drops for the full course. Mother verbalized understanding of care plans . No barriers to learning identified. documented in this encounter Plan of Treatment Upcoming Encounters Date Type Department Care Team (Late st Contact Info) Description 04/24/2024 15:30 EST Telemedicine [facility] Pediatric Pulmonary - [address] [phone] Lucy Rodgers MD [address] [place] [phone] documented as of this encounter Visit Diagnoses Not on filedocumented in this encounter Care Teams Vice President Education Relationship Specialty Start Date End Date Trell Pittman MD [address] [place] [address] PCP - General 04/10/09 documented as of this encounter
--- OUTSIDE RECORDS SUMMARY | 2024-03-30 21:50 | XMS_ITS | Encounter Summary ---
Author Organization [facility] Address [address] [place] [address] Care Team Providers Care Machine Lay Out Worker Name Role Phone Trell Pittman MD Primary Care Provider [phone] [phone] Reason for Visit * Reason Comments Cough Nasal Congestion Encounter Details Date Type Department Care Team (Late st Contact Info) Description 06/18/2011 9:15 EST Office [facility] Pediatric [facility] - Main [place] [address] [place] [address] Rashmi Tabares, [employer] [address] [place] [id number] Asthma (Primary Dx); Primary ciliary dyskinesia; GERD (gastroesophageal reflux disease) Discharge Disposition: Auto Discharge Social History Tobacco [...] Sign Reading Time Taken Comments Blood Pressure 102/51 06/18/2011 0930 EST Pulse 87 06/18/2011 0930 EST Temperature - - Respiratory Rate 16 06/18/2011 0930 EST Oxygen Saturation 100% 06/18/2011 0930 EST Inhaled Oxygen Concentration - - Weight 22.2 kg (48 lb 15.1 oz) 06/18/[address] Height 123.6 cm (4' 0.66) 06/18/2011 0930 EST Body Mass Index 14.53 06/18/2011 0930 EST Body Mass Index Percentile 28.42% 06/18/2011 093 0 EST Growth Chart: [facility] (Girls, 2- 20 Years) documented in [...] Progress Notes * Rashmi Tabares NP - 06/18/2011 1004 EST Images from the original note were not included. Pediatric Pulmonology James Franklin M.D., Hayden Pearce, Jason Mohan M.D. [address] [address] Encounter Date: 06/18/2011 Trell Pittman MD [place] [address] [facility] [id number] Chief Complaint: Rosario is a 5 y.o. female who is seen in pulmonary clinic for cough, asthma and probable primary cilary dyskinesia. Rosario is accompanied by her mother who contributed to the history. Subjective: Rosario has been more symptomatic with cough and nasal congestion since April. She was treated with 2 weeks of Augmentin (started 05/18/2011) and has been off medications for the last two weeks. There was some improvement per mother but it has not cleared the cough and congestion. In further discussion, Rosario has been challenged at both homes (new since when parents )with tobacco smoke in the home as well as increased animals at her father's residence. She did go to the ED last week because Rosario had chest tightness, as well as a sore throat. She is throat clearing frequently and her congestion has continued to be an issue. She does use her sinus rinses at mot her's but not at her father's on the weekends. Xopenex has relieved her symptoms--especially prior to gym class. She has had no sleep disturbance and wheeze. There has not been any fever or chills. CPT 1-2 times at dad's (VEST) and about 3 times a day at mother's (2 vest and one manual). Medication Use: Rescue/quick relief medicines: ?? Xopenex MDI. Rosario has needed to use this medication 3-4 times a day due to cough Preventive/long-term control: ?? fluticasone-salmeterol (ADVAIR) 115mcg-21mcg 2 puffs bid Description of medication technique is adequate. Gastrointestinal/Nutrition: Appetite is good. Diet: healthy diet in general Gastroesophageal reflux symptoms are well controlled with Prevacid. Other abdominal complaints include periumbilical abdominal pain and constipation--she has increased her miralax for the last 2 weeks. Otolaryngology: Rosario has had throat clearing, rhinorrhea, sinus congestion and nasal congestion. Sinus rinses are being done mostly daily. (yellow/green discharge from nose lately--did clear when taking Augmentin) General Health: Overall behavior and activity has been normal. Exercise: very active Rosario has missed 2-3 days of school due to illness. Environmental History: There have been changes to the home environment since the last visit--see the history above. Environmental Tobacco Exposure: Yes, advised to smoke outside Wood stove. REVIEW OF SYSTEMS: Positive for: cough, wheezing, congestion, rhinorrhea Negative for: fever, chills, fatigue, malaise, sinus pressure / pain, ear pain, hemoptysis, shortness of breath, increased work of breathing, tachypnea, stridor, reflux, vomiting, nausea, headache, cyanosis, pallor, post nasal drip A complete review of systems was obtained [...] Outpatient Prescriptions Marked as Taking for the 06/18/11 encounter (Office Visit) with Rashmi Tabares NP Medication Sig Dispense Refill ??? UNABLE TO FIND Take 7 % [...] week (M,W, F) 60 mL 2 ??? POLYETHYLENE GLYCOL 3350 (MIRALAX ORAL) Take 1 Cap by mouth daily. Varies 1- 1/2 caps per day ??? Multivitamins with Minerals Tab Take 1 Tab by mouth three times a week. Allergies Allergen Reactions ??? Adhesive Tape Other (See Comments) blisters ??? Milk Nausea And Vomiting And itchy, rash, nasal congestion Living Conditions ??? Lives with Mother primarily (sees father regularly) dad every other weekend and Tues and Wed ??? Other individuals living in the home brother; ??? Parents status Weekdays ??? Education Grade 1 ??? Reported academic performance Excellent Safety and Environmental Exposures ??? Pets Yes 2 dog; ??? Carpets Yes Social History was reviewed and updated in [employer]. Relevant elements of social history can be found in the environmental exposures portion of this note. Objective Data BP 102/51 Pulse 87 Resp 16 Ht 123.6 cm (48.66) Wt 22.2 kg (48 lb 15.1 oz) BMI 14.53 kg/m2 SpO2 100% General Appearance: alert, no acute distress Head: normocephalic, atraumatic Eye: no injection, no discharge, PERRLA Ear: TM's dull and cloudy bilaterally, canals clear bilaterally, right PE tubes does not appear inplace Nose: Mouth\Throat: moist mucosa, oropharynx without exudate, erythema or thrush Lymph Nodes: anterior cervical lymphadenopathy, Chest\Lungs: Air entry is good bilaterally, wheezing [...] PFT's PFTS (Before Albuterol Treatment) FVC (L): 1.6 liters FVC % Pred: 106 FEV1 (L): 1.41 liters FEV 1 % Pred: 103 FEF 25-75% (L/scc): 1.92 FEV-1/FVC: 88 PFTS (After Albuterol Treatment) FVC (L) (After Albuterol): 1.67 liters FVC % Pred (After Albuterol): 110 FEV1 (L) (After Albuterol): 1.44 liters FEV 1 % Pred (After Albuterol): 105 FEF 25-75% (L/scc) (After Albuterol): 1.58 FEV-1/FVC (After Albuterol): 86 X-rays: No x-rays were reviewed during this encounter Assessment and Plan Rosario is a 5 y.o. 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 She has been symptomatic with cough that suggests ongoing postnasal drip. Spirometry (FEV1) was stable today when compared to baseline without a bronchodilator response. Before restarting antibiotics, I would like to obtain culture results. VIRGINIE appears to be well controlled on lansoprazole. I discussed the following treatment plan with her mother. Asthma ?? Preventative Medications: ?? fluticasone-salmeterol (ADVAIR) 115mcg-21mcg 2 puffs bid ?? Singulair 5mg daily ?? Rescue Medications: Xopenex 2 puffs MDI 15 minutes before activity Xopenex 3-4 times a day with respiratory symptoms. May use every 4 hours as needed Call if Rosario needs rescue medication sooner than every 4 hours ?? Symptomatic treatments reviewed. ?? Patient's condition, differential diagnosis, and Treatment Plan reviewed. ?? Teaching provided for the listed diagnoses and/or medications. ?? Action plan given and discussed. ?? Triggers and risk factors discussed. Recommend keeping Rosario in a smoke free environment. Allergies ?? Cetirizine daily as needed VIRGINIE ?? Prevacid 30 mg daily PCD ?? Airway clearance TID ?? Sinus rinse kits twice daily ?? Azithromycin as anti-inflammatory 3 times weekly ?? Throat/sputum culture performed today. Chronic Rhintis/Sinusitis ?? Sinus rinse kits Return to clinic 6 weeks or sooner if any questions, concerns or change in respiratory status. Please feel free to contact us with questions or comments regarding Rosario's care. Sincerely, Rashmi Tabares NP documented in this encounter Plan of Treatment Upcoming Encounters Date Type Department Care Team (Late st Contact Info) Description 04/24/2024 15:30 EST Telemedicine [facility] Pediatric Pul[facility] - [address] [id number] Lucy Rodgers MD [address] [place] [address] Scheduled Orders Name Type Priority Associated Diagnoses Orde r Schedule SPIROMETRY WITH BRONCHODILATOR PFT Routine Asthma Ordered: 06/17/2011 documented as of this encounter Procedures Procedure Name Priority Date/Time Associated Diagnosis Comments CYSTIC FIBROSIS RESPIRATORY CULTURE, SWAB Routine 06/18/2011 10:39 EST Asthma documented in this encounter Results * CYSTIC FIBROSIS RESPIRATORY CULTURE, SWAB (06/18/2011 10:39 EST) Specimen Description Throat [facility] Result Mod Usual tiff-pharyn geal ana [facility] Report Status 06/23/2011 Final [facility] Specimen from throat (specimen) 06/18/2011 10:39 EST 06/18/2011 11:24 EST Rashmi Tabares APRN MICROBIOLOGY - GENERAL OR DERABLES Final Result [facility] [address] [place] [address] documented in this encounter Visit Diagnoses Diagnosis Asthma- Primary Unspecified asthma Primary ciliary dyskinesia Situs inversus GERD (gastroesophageal reflux disease) Esophageal reflux documented in this encounter Historical Medications * This list may reflect changes made after this encounter. UNABLE TO FIND Take 7 % by nebulization 2 times daily. Med Name:Hyper tonic Saline (7%) 3 added in this encounter Care Teams Machine Lay Out Worker Relationship Specialty Start Date End Date Trell Pittman MD [address] [place] [address] PCP - General 04/10/09 documented as of this encounter
--- OUTSIDE RECORDS SUMMARY | 2024-03-30 21:50 | XMS_ITS | Encounter Summary ---
Author Organization [facility] Address [address] [place] [address] Care Team Providers Care Delivery Architect Name Role Phone Trell Pittman MD Primary Care Provider [phone] Reason for Visit * Reason Comments Cough Encounter Details Date Type Department Care Team (Late st Contact Info) Description 03/18/2011 12:15 EDT Office Visit [facility] Pediatric Pulmonary - [facility] [address] [place] [address] Jason Mohan MD [address] [place] [address] Chronic obstructive asthma, unspecified; Ciliary dyskinesia, primary; Asthma; GERD (gastroesophageal reflux disease); Unspecified chronic suppurative otitis media Social History [...] Sign Reading Time Taken Comments Blood Pressure 112/51 03/18/2011 1218 EDT Pulse 82 03/18/2011 1218 EDT Temperature - - Respiratory Rate 16 03/18/2011 1218 EDT Oxygen Saturation 100% 03/18/2011 1218 EDT Inhaled Oxygen Concentration - - Weight 21.3 kg (46 lb 15.3 oz) 03/18/2011 1218 E DT Height 121.9 cm (3' 11.99) 03/18/2011 1218 EDT Body Mass Index 14.33 03/18/2011 1218 EDT Body Mass Index Percentile 23.63% 03/18/2011 121 8 EDT Growth Chart: [facility] (Girls, 2- 20 Years) documented in [...] mouth every evening. 30 Tab 6 03/18/2011 11/27/2013 documented in this encounter Progress Notes * Jason Mohan MD - 03/18/2011 1225 EDT Images from the original note were not included. Pediatric Pulmonology James Franklin M.D., Hayden Pearce, Jason Mohan M.D. [address] [address] Encounter Date: 03/18/2011 Trell Pittman MD [place] [facility] [id number] Chief Complaint: Rosario is a 5 y.o. female who is seen in pulmonary clinic for cough and likely primary cilary dyskinesia. Rosario is accompanied by her mother who contributed to the history. Subjective: Rosario has has been symptomatic with cough for the last several weeks. Her dry non-productive cough began 2 weeks ago. Her mother stated that her cough is worse in the morning and at night. It is worse with activity, colds and changes in air temperature. It is better with 4 puffs of xopenex. Her cough has been associated with chest tightness and wheezing. She has had no decrease in energy, fever and chills. She has had cough during sleep. She has had snoring. She has not had apnea. CPT 2-3 times a day with a vest for 20 minutes. Medication Use: Rescue/quick relief medicines: ?? Xopenex MDI. Rosario has needed to use this medication 3-4 times a day due to cough following exercise and at night. Preventive/long-term control: ?? fluticasone-salmeterol (ADVAIR) 115mcg-21mcg 2 puffs bid Description of medication technique is adequate. Gastrointestinal/Nutrition: Appetite is good. Diet: healthy diet in general Gastroesophageal reflux symptoms include wet burps that are better with prevacid. Other abdominal complaints include constipation treated with miralax. Otolaryngology: Rosario has had rhinorrhea, sinus congestion and nasal congestion with a variable pattern. Sinus rinses are being done daily. Lately, they are not getting much out. No post nasal drip General Health: Overall behavior and activity has been normal. Exercise: Less active due to symptoms Rosario has missed 1 days of school due to illness. Environmental History: There have been no changes to the home environment since the last visit. WOOD STOVE Environmental Tobacco Exposure: Yes, advised to smoke outside REVIEW OF SYSTEMS: Positive for: cough, wheezing, chest tightness, congestion, rhinorrhea, wet burps Negative for: fever, fatigue, hemoptysis, stridor, vomiting, post nasal drip A complete review of systems was obtained and was negative except listed above. Past Medical History Diagnosis Date ??? OM (otitis media) ??? Asthma Always rattley per mom ??? Esophageal reflux ??? Unspecified sinusitis (chronic) ??? Allergic conjunctivitis Past Surgical History Procedure Date ??? Pyloromyotomy [...] Outpatient Prescriptions Marked as Taking for the 03/18/11 encounter (Office Visit) with Jason Mohan MD Medication Sig Dispense Refill ??? AMOXICILLIN TRI/POTASSIUM CLAV (AUGMENTIN ORAL) Take by mouth. ??? levalbuterol (XOPENEX HFA) 45 mcg/Actuation inhaler Inhale 2 Puffs as directed every 4 hours asneeded. 1 Inhaler 6 ??? sodium chloride sinus rinse (NEILMED SINUS RINSE) Pack 1 Kit by Nasal route as needed for Other. 1 Kit 5 ??? Ammonium Lactate (LAC-HYDRIN FIVE) 5 % Lotn Apply topically as needed. ??? polyethylene glycol (MIRALAX) 17 gram/dose powder Take 238 g by mouth once for 1 dose. Mix 14 capfuls in 64 ounces of gatorade and drink over 6 hours on Thursday 02/01 for colo prep 238 g 0 ??? lidocaine-prilocaine (EMLA) cream Apply topically. Prior to procedure 1 Tube 0 ??? lansoprazole (PREVACID) 30 mg capsule Take 30 mg by mouth daily. ??? inhalational spacing device (AEROCHAMBER) Inhale 1 Device as directed daily as needed. 1 Device1 ??? fluticasone-salmeterol (ADVAIR HFA) 115-21 mcg/Actuation inhaler Inhale 2 Puffs as directed 2 times daily. Use with spacer 1 Inhaler 5 ??? ketotifen (ZADITOR) 0.025 % ophthalmic solution Place 2 Drops into both eyes 2 times daily. ??? cetirizine (ZYRTEC) 1 mg/mL Soln Take by mouth. 1 tsp qd ??? PEDI MVI NO.12/SODIUM FLUORIDE (MVC-FLUORIDE ORAL) Take by mouth. ??? WHEAT DEXTRIN (CHILDREN'S BENEFIBER ORAL) Take by mouth. ??? azithromycin (ZITHROMAX) 200 mg/5 mL suspension Take 5 mL by mouth three times a week. Take 1 tsp by mouth (5ml) three times per week (M,W, F) 60 mL 2 ??? Multivitamins with Minerals Tab Take 1 Tab by mouth three times a week. Allergies Allergen Reactions ??? Adhesive Tape Other (See Comments) blisters ??? Amoxicillin Rash ??? Milk Nausea And Vomiting And itchy, rash, nasal congestion ??? Penicillins Rash Living Conditions ??? Lives with Parents ??? Other individuals living in the home brother; Weekdays ??? Education Kindergarten ??? Reported academic performance Excellent Safety and Environmental Exposures ??? Pets Yes 1 dog; 1 cat ??? Carpets Yes Social History was reviewed and updated in [facility]ISM. Relevant elements of social history can be found in the environmental exposures portion of this note. Objective Data BP 112/51 Pulse 82 Resp 16 Ht 121.9 cm (47.99) Wt 21.3 kg (46 lb 15.3 oz) BMI 14.33 kg/m2 SpO2 100% General Appearance: alert, no [...] PFT's PFTS (Before Albuterol Treatment) FVC (L): 1.53 liters FVC % Pred: 104 FEV1 (L): 1.38 liters FEV 1 % Pred: 104 FEF 25-75% (L/scc): 1.07 FEV-1/FVC: 90 PFTS (After Albuterol Treatment) FVC (L) (After Albuterol): 1.54 liters FVC % Pred (After Albuterol): 104 FEV1 (L) (After Albuterol): 1.48 liters FEV 1 % Pred (After Albuterol): 111 FEF 25-75% (L/scc) (After Albuterol): 2.59 FEV-1/FVC (After Albuterol): 96 X-rays: No x-rays were reviewed during this encounter Assessment and Plan Rosario is a 5 y.o. female with likely Primary Ciliary Dyskinesia and asthma. She has been symptomatic with a dry cough, wheezing, chest tightness that is worse with air temperature changes, colds and exercise. Her symptoms quickly improve with 4 puffs of xopenex. This appears consistent with suboptimally controlled asthma. Spirometry (FEV1) was stable today when compared to baseline with a mild bronchodilator response. I would like to restart singulair at this time. In the meantime, she should continue all medications for allergies, chronic rhinitis, VIRGINIE and PCD. Airway clearance will be very important until her symptoms are under control. I will follow respiratory culture and consider antibiotics as necessary. I discussed the following treatment plan with her mother. Asthma ?? Preventative Medications: ?? fluticasone-salmeterol (ADVAIR) 115mcg-21mcg 2 puffs bid ?? singulair 5mg daily ?? Rescue Medications: Xopenex 2 puffs MDI 15 minutes before activity Xopenex 2 puffs MDI every 4 hours as needed during respiratory illness Xopenex 3-4 times a day with respiratory symptoms. May use every 4 hours as needed Call if Rosario needs rescue medication sooner than every 4 hours ?? Symptomatic treatments reviewed. ?? Patient's condition, differential diagnosis, and Treatment Plan reviewed. ?? Teaching provided for the listed diagnoses and/or medications. ?? Action plan given and discussed. ?? Triggers and risk factors discussed. ?? Follow up if symptoms persist, increase, or as instructed. Allergies ?? Zadator ?? Cetirizine VIRGINIE ?? Prevacid PCD ?? Airway clearance BID ?? Sinus rinse kits 1-2 times per day ?? Azithromycin as anti-inflammatory Chronic Rhintis ?? Sinus rinse kits Return to clinic in 1 month. Please feel free to contact us with questions or comments regarding Rosario's care. Sincerely, Jason Mohan MD documented in this encounter Procedure Notes * Browning Processor, Marsha - 03/25/2011 1342 ESTAssociated Order(s): PULMONARY FUNCTION LAB REPORT - SCANNED documented in this encounter Plan of Treatment Upcoming Encounters Date Type Department Care Team (Late st Contact Info) Description 04/24/2024 15:30 EST Telemedicine [facility] Pediatric Pulmonary - Main [place] [address], [place] [address] Lucy Rodgers MD [address] [place] [address] documented as of this encounter Procedures Procedure Name Priority Date/Time Associated Diagnosis Comments PULMONARY FUNCTION REPORT - SCANNED 03/25/2011 13:42 EST documented in this encounter Results * PULMONARY FUNCTION LAB REPORT - SCANNED (03/25/2011 13:42 EST) 03/25/2011 13:4 2 EST Narrative Transcriptions Browning Processor, Scan - 03/25/2011 13:42 EST us Scan Browning Processor PROCEDURE/MINOR SURGICAL ORDE RABLES Final Result * CYSTIC FIBROSIS RESPIRATORY CULTURE, SWAB (03/18/2011 15:43 EDT) Specimen Description Throat [facility] Result Heavy Usual tiff-pharyn geal ana [facility] Report Status 03/23/2011 Final [facility] Specimen from throat (specimen) 03/18/2011 15:43 EDT 03/18/2011 15:45 EDT us Jason Mohan MD MICROBIOLOGY - GENERAL ORDERABLES Final Result [facility] [address] [place] [address] documented in this encounter Visit Diagnoses Diagnosis Chronic obstructive asthma, unspecified Ciliary dyskinesia, primary Situs inversus Asthma Unspecified asthma GERD (gastroesophageal reflux disease) Esophageal reflux Unspecified chronic suppurative otitis media documented in this encounter Care Teams Delivery Architect Relationship Specialty Start Date End Date Trell Pittman MD [address] [place] [address] PCP - General 04/10/09 documented as of this encounter
--- OUTSIDE RECORDS SUMMARY | 2024-03-30 21:50 | XMS_ITS | Encounter Summary ---
Author Organization [facility] Address [address] [place] [address] Care Team Providers Care Promotional Advertising Assistant Name Role Phone Trell Pittman MD Primary Care Provider [phone] Reason for Visit * Reason Onset Date Comments Follow-up 09/30/2011 Encounter Details Date Type Department Care Team (Late st Contact Info) Description 09/30/2011 Telephone [facility] - [facility] [address] [place] [address] James Franklin MD [address] [place] [address] Follow-up Social History Tobacco Use [...] Miscellaneous Notes * Telephone Encounter - Harley Melton - 09/30/2011 1416 EDT Calling for Vaishali. She is concerned that the nebulizer was denied by medicaid. Please give her a call to discuss. documented in this encounter Plan of Treatment Upcoming Encounters Date Type Department Care Team (Late st Contact Info) Description 04/24/2024 15:30 EST Telemedicine [facility] Pulmonary - [facility] [address] [place], [place] [id number] Lucy Rodgers MD [address] [place] [phone] documented as of this encounter Visit Diagnoses Not on filedocumented in this encounter Care Teams Promotional Advertising Assistant Relationship Specialty Start Date End Date Trell Pittman MD [address] [place] [address] PCP - General 04/10/09 documented as of this encounter
--- OUTSIDE RECORDS SUMMARY | 2024-03-30 21:50 | XMS_ITS | Encounter Summary ---
Author Organization [facility] Address [address] [place] [address] Care Team Providers Care Graphite Disk Assembler Name Role Phone Trell Pittman MD Primary Care Provider [phone] [phone] Reason for Visit * Reason Comments Nasal Congestion Cough Encounter Details Date Type Department Care Team (Late st Contact Info) Description 06/26/2011 9:00 EST Office Visit [facility] Pediatric Pulmonary - Main [place] [address] [place] [address] Rashmi Tabares, MIXING MACHINE TENDER [address] [place] [address] [phone] Primary ciliary dyskinesia; Asthma; GERD (gastroesophageal reflux disease) Social History Tobacco Use Types Packs/Day Years [...] Time Taken Comments Blood Pressure 105/58 06/26/2011 0901 EST Pulse 73 06/26/2011 0901 EST Temperature - - Respiratory Rate 12 06/26/2011 0901 EST Oxygen Saturation 100% 06/26/2011 09 EST Inhaled Oxygen Concentration - - Weight 22 kg (48 lb 8 oz) 06/26/2011 09 EST Height 123.8 cm (4' 0.74) 06/26/2011 09 EST Body Mass Index 14.35 06/26/2011 09 EST Body Mass Index Percentile 23.47% 06/26/2011 090 1 EST Growth Chart: [facility] (Girls, 2- 20 Years) documented in this encounter Mental Status * Because of a physical, mental, or emotional condition, do you have serious difficulty concentrating, remembering, or making decisions? (5 years old or older) Answer Entry Date Author Yes 02/13/2010 0:00 Mohit Tinajero RN documented in this encounter Progress Notes * Rashmi Tabares, CATCH BASIN CLEANER - 06/26/2011925 EST Images from the original note were not included. Pediatric Pulmonology James Franklin M.D., Hayden Pearce, Jason Mohan M.D. [address] [address] Encounter Date: 06/26/2011 Trell Pittman MD [place] [facility] [id number] Chief Complaint: Rosario is a 5 y.o. female who is seen in pulmonary clinic for chronic cough. Rosario is accompanied by her father who contributed to the history. Subjective: Rosario has been well since the last visit. She has seemed to improve without any intervention, except her mother moved into a home without any smoke. Rosario feels much better and her congestion hasalmost resolved. She has not been taking her Singulair or her allergy medications--she has not beentoo interested in her sinus rinses. She has had no apneic episodes, chest pain, chest tightness, chr onic cough, cyanotic episodes, difficulty breathing, exercise limitation, increased work of breathing, tachypnea, URI symptoms, shortness of breath, stridor, symptoms with exertion and wheezing. Dad is happy with how she is currently doing. She has had no fatigue, sleep disturbance, decrease in energy, fever, chills, night sweats, stridorand wheeze. She has had no cough, frequent awakenings, observed apnea, obstructed breathing pattern, noisy breathing and snoring during sleep. Typical triggers: Infections / Colds, Cigarette Smoke, Air Pollution, Environmental Allergies Classification of Asthma Control: Daytime symptoms: None Nighttime awakenings: None Interference with normal activity: None Short-acting Beta agonist use for symptom control: Less than or equal to 2 days/week Exacerbations requiring oral systemic corticosteroids: 0-1/year ATAQ: 0 TRACK: Medication Use: Rescue/quick relief medicines: ?? Xopenex MDI. Rosario has not needed to use this medication this week. Preventive/long-term control: ?? fluticasone-salmeterol (ADVAIR) 115mcg-21mcg Proper use of chamber / mask: Yes Medication Compliance: Partially Adherent Gastrointestinal/Nutrition: Appetite is good. Diet: healthy diet in general Gastroesophageal reflux symptoms are absent . Other abdominal complaints include constipation and diarrhea. Otolaryngology: Rosario has had rhinorrhea, throat clearing, nasal congestion and post nasal drip. This has improved greatly over this week while in a new environment. General Health: Overall behavior and activity has been normal, playful. Exercise: very active Rosario has missed multiple days of school due to illness. Environmental History: There have been no changes to the home environment since the last visit. Environmental Tobacco Exposure: Yes, advised to smoke outside REVIEW OF SYSTEMS: Positive for: congestion Negative for: fever, fussy, chills, achiness, fatigue, sinus pressure / pain, ear pain, sore throat, cough, shortness of breath, increased work of breathing, tachypnea, chronic cough, wheezing, stridor, exertional symptoms, exercise limitation, abdominal pain, wet burps, reflux, vomiting, nausea, headache, rash, illness, cyanosis, pallor A complete review of systems [...] Outpatient Prescriptions Marked as Taking for the 06/26/11 encounter (Office Visit) with Rashmi Tabares NP Medication Sig Dispense Refill ??? UNABLE TO FIND Take 7 % by nebulization 2 times daily. Med Name:Hyper tonic Saline (7%) ??? PREVACID 30 mg capsule take 1 capsule by mouth once daily 90 Cap 3 ??? levalbuterol (XOPENEX HFA) 45 mcg/Actuation inhaler [...] Use with spacer 1 Inhaler 5 ??? WHEAT DEXTRIN (CHILDREN'S BENEFIBER ORAL) Take [...] portion of this note. Objective Data BP 105/58 Pulse 73 Resp 12 Ht 123.8 cm (48.74) Wt 22 kg (48 lb 8 oz) BMI 14.35 kg/m2 SpO2 100% General Appearance: well appearing, alert, no acute distress, cooperative Head: normocephalic, atraumatic Eye: no injection, no discharge, PERRLA Ear: TM's dull bilaterally, canals clear bilaterally, right PE tubes [...] PFT's PFTS (Before Albuterol Treatment) FVC (L): 1.58 liters FVC % Pred: 104 FEV1 (L): 1.41 liters FEV 1 % Pred: 103 FEF 25-75% (L/scc): 2.4 FEV-1/FVC: 89 X-rays: No x-rays were reviewed during this encounter Assessment and Plan Rosario is a 5 y.o. 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 She has been symptomatic (for the last 1-2 months) with cough that suggests ongoing postnasal drip. She has moved with her mother into a new home without any smoke and has really improved over the week per dad. Spirometry (FEV1) was stable today when compared to baseline so we did not do a post-bronchodilator responsetoday. I discussed the following treatment plan with her father. Asthma ?? Maintenance (Green) Medications: ?? - fluticasone-salmeterol (ADVAIR) 115mcg-21mcg 2 inhalations twice daily ?? - montelukast (SINGULAIR CHEWABLE TABLET) 5mg by mouth daily ?? Rescue (Yellow) Medications: Levalbuterol (xopenex) MDI 2 puffs ?? Emergency (Red) Medications: Levalbuterol (xopenex) MDI 4 puffs ?? Seasonal Influenza Vaccine: Already received. Education / Self Management Goals: Symptomatic treatments reviewed. Patient's condition, differential diagnosis, and Treatment Plan reviewed. Teaching provided for the listed diagnoses and/or medications. Spacer use discussed. Triggers and risk factors discussed. Counselled regarding the risks of smoke exposure. Medications per orders. Follow up if symptoms persist, increase, or as instructed. Patient's / Parent's Insight into Illness: Poor understanding of disease and symptom management Patient's Self-Management Goal: Self- Management Goal Effort: None Allergies Cetirizine 5 mg daily as needed [place] Prevacid 30 mg daily; will be seeing Pediatric GI today and we will defer to them for any changes to the plan of care. PCD/Chronic Rhintis/Sinusitis Airway clearance TID Sinus rinse kits twice daily Azithromycin as anti-inflammatory 3 times weekly Return to clinic in 2-3 months. Please feel free to contact us with questions or comments regarding Rosario's care. Sincerely, Rashmi Tabares NP documented in this encounter Plan of Treatment Upcoming Encounters Date Type Department Care Team (Late st Contact Info) Description 04/24/2024 15:30 EST Telemedicine [facility] Pediatric Pulmonary - [address] [address] Lucy Rodgers MD [address] [place] [address] documented as of this encounter Visit Diagnoses Diagnosis Primary ciliary dyskinesia Situs inversus Asthma Unspecified asthma GERD (gastroesophageal reflux disease) Esophageal reflux documented in this encounter Care Teams Graphite Disk Assembler Relationship Specialty Start Date End Date Trell Pittman MD [address] [place] [address] [place] [address] PCP - General 04/10/09 documented as of this encounter
--- OUTSIDE RECORDS SUMMARY | 2024-03-30 21:50 | XMS_ITS | Encounter Summary ---
Author Organization [facility] Address [address] [place] [address] Care Team Providers Care Marking Room Supervisor Name Role Phone Trell Pittman MD Primary Care Provider [phone] Reason for Visit * Reason Onset Date Comments Results 02/13/2011 Bronch Results Encounter Details Date Type Department Care Team (Late st Contact Info) Description 02/13/2011 Telephone [facility] Pediatric Pulmonary - [facility] [address] [place] [address] James Franklin MD [address] [place] [address] Results (Bronch Results) Social History Tobacco Use Types Packs/Day Years [...] Telephone Encounter - Vaishali García RN - 02/13/2011 1404 EDT Spoke with mom about bronch results, also per mom since last , still was not getting better. [place] pcp put her on augmentin for 2 weeks. Mom said it's taken all week, but she is finally startingto feel a bit better. * Telephone Encounter - Eloisa Arellano - 02/13/2011 0831 EDT Lucy would like Rosario's bronch results. documented in this encounter Plan of Treatment Upcoming Encounters Date Type Department Care Team (Late st Contact Info) Description 04/24/2024 15:30 EST Telemedicine [facility] Pediatric Pulmonary - [address] [id number] Lucy Rodgers MD [address] [place] [phone] documented as of this encounter Visit Diagnoses Not on filedocumented in this encounter Care Teams Marking Room Supervisor Relationship Specialty Start Date End Date Trell Pittman MD [address] [place] [address] PCP - General 04/10/09 documented as of this encounter
--- OUTSIDE RECORDS SUMMARY | 2024-03-30 21:50 | XMS_ITS | Encounter Summary ---
Author Organization [facility] Address [address] [place] [address] Care Team Providers Care Latin American Studies Professor Name Role Phone Trell Pittman MD Primary Care Provider [phone] Reason for Visit * Reason Onset Date Comments Other 09/28/2011 Order for school Encounter Details Date Type Department Care Team (Late st Contact Info) Description 09/28/2011 Telephone [facility] Pediatric Pulmonary - [facility] [address] [place] [address] James Franklin MD [address] [place] [address] Other (Order for school) Social History Tobacco Use Types Packs/Day Years [...] Telephone Encounter - Bushra Castro RN - 09/28/2011 2064 EDT Faxed medication order to school as per request and chart review. * Telephone Encounter - Eloisa Arellano - 09/28/2011 0846 EDT Please fax over an order for Rosario to take Floranex after lunch at school - [employer] - . documented in this encounter Plan of Treatment Upcoming Encounters Date Type Department Care Team (Late st Contact Info) Description 04/24/2024 15:30 EST Telemedicine [facility] Pediatric Pulmonary - [address] [address] Lucy Rodgers MD [address] [place] [address] [phone] documented as of this encounter Visit Diagnoses Not on filedocumented in this encounter Care Teams Latin American Studies Professor Relationship Specialty Start Date End Date Trell Pittman MD [address] [place] [address] PCP - General 04/10/09 documented as of this encounter
--- OUTSIDE RECORDS SUMMARY | 2024-03-30 21:50 | XMS_ITS | Encounter Summary ---
Author Organization [facility] Address [address] [place] [address] Care Team Providers Care Supervisor Mechanic Boilermaking Name Role Phone Trell Pittman MD Primary Care Provider [phone] Reason for Visit * Reason Onset Date Comments Letter for School/Work 12/07/2011 Encounter Details Date Type Department Care Team (Late st Contact Info) Description 12/07/2011 Telephone [facility] Pediatric Pulmonary - [facility] [address] [place] [address] James Franklin MD [address] [place] [address] Letter for School/Work Social History [...] * Telephone Encounter - Eloisa Arellano - 12/07/2011 1029 EDT Letter faxed to above number. * Telephone Encounter - Harley Melton. - 12/07/2011 0811 EDT They are coming into town for several appointments tomorrow and she needs a letter faxed to the hotel that they are staying at so they can geta 15% discount. Please fax to [phone] documented in this encounter Plan of Treatment Upcoming Encounters Date Type Department Care Team (Late st Contact Info) Description 04/24/2024 15:30 EST Telemedicine [facility] Pediatric Pulmonary - [address] [phone] Lucy Rodgers MD [address] [place] [phone] documented as of this encounter Visit Diagnoses Not on filedocumented in this encounter Care Teams Supervisor Mechanic Boilermaking Relationship Specialty Start Date End Date Trell Pittman MD [address] [place] [place] [address] [place] [address] PCP - General 04/10/09 documented as of this encounter
--- OUTSIDE RECORDS SUMMARY | 2024-03-30 21:50 | XMS_ITS | Encounter Summary ---
Author Organization [facility] Address [address] [place] [address] Care Team Providers Care Feather Washer Name Role Phone Trell Pittman MD Primary Care Provider [phone] Reason for Visit * Reason Comments Otalgia Encounter Details Date Type Department Care Team (Late st Contact Info) Description 07/28/2011 9:50 EDT Office Visit [facility] ENT- Main [address] [address] Whitney Spears MD [address] [place] [address], [address] [place] [address] Unspecified chronic suppurative otitis media; Simple or unspecified chronic serous otitis media Social History Tobacco Use Types [...] documented in this encounter Progress Notes * Guero Morrow MD - 07/28/2011 1016 EDT Progress Note Division of Otolaryngology, Head and Neck Surgery Date of Service: 07/28/2011 CHIEF COMPLAINT: Chief Complaint Patient presents with ??? Otalgia HISTORY OF PRESENT ILLNESS: Rosario Ace is a 5 y.o. female with history of chronic serous otitis media and PET placement in June 2010, presents with 4-7 days of otalgia. Mother states that the pain keeps Rosario up all night. She complains of right-sided otalgia, some decreased responsiveness to teachers at school, but no speech or language concerns. Mother does not believe there has been right-sided otorrhea, butis unsure about left. The patient presented to the [facility] ED yesterday and was diagnosed with left-sided otitis media. She was given a prescription for Ciprodex drops, but has continued to have pain. OBJECTIVE: PHYSICAL EXAMINATION CONSTITUTIONAL: APPEARANCE: The patient appears alert, cooperative, and comfortable. ABILITY TO COMMUNICATE / VOICE: Normal for age HEAD AND FACE: INSPECTION: Normal without apparent scars, lesions, or masses. SALIVARY GLANDS: Submandibular and Parotid glands are normal bilaterally FACIAL STRENGTH: Intact and symmetrical bilaterally EXTERNAL EAR & NOSE: No external ear or nose deformity noted and tragus/pinna non-sensitive EARS, NOSE, MOUTH AND THROAT: OTOSCOPY: Right external auditory canal: patent and non-inflamed Left external auditory canal: patent and non-inflamed Right tympanic membrane: tympanostomy tube patent and in proper position, without fluid in canal orPET lumen; TM normal in appearance Left tympanic membrane: tympanostomy tube patent and in proper position, without fluid in canal or PET lumen; TM normal in appearance NOSE: normal turbinates and mucosa: septum in midline LIPS, TEETH & GUMS: normal for age ORAL CAVITY & OROPHARYNX: normal, pink mucosa NECK: GENERAL: Supple, no asymmetry or crepitus, trachea midline THYROID: Normal LYMPHATIC: CERVICAL LYMPH NODES: 1cm left level 2 node AUDIOGRAM: 20-25dB at 250Hz, otherwise normal hearing; bilaterally, large volume and flat tymps ASSESMENT: Encounter Diagnoses Name Primary? Unspecified chronic suppurative otitis media ??? Simple or unspecified chronic serous otitis media 5 y.o. female with history of chronic serous otitis media and PETs in place, presents with otalgia,normal hearing, and normal exam. PLAN: Rosario was seen today for otalgia. Diagnoses and associated orders for this visit: Unspecified chronic suppurative otitis media Simple or unspecified chronic serous otitis media The patient may discontinue Ciprodex drops and follow-up in December. Guero Morrow MD Otolaryngology, Head and Neck Surgery Attestation statement: I saw and examined the patient with the resident/fellow. I agree with the findings and plan of care documented in the resident's/fellow's note. WHITNEY SPEARS MD documented in this encounter Procedure Notes * DEHYDROGENATION OPERATOR, SCAN 2 - 08/06/2011 1366 EDTAssociated Order(s): PROCEDURE REPORTS - SCANNED documented in this encounter Plan of Treatment Upcoming Encounters Date Type Department Care Team (Late st Contact Info) Description 04/24/2024 15:30 EST Telemedicine [facility] Pediatric Pulmonary - [facility] [address] [place] [address] Lucy Rodgers MD [address] [place] [address] Scheduled Orders Name Type Priority Associated Diagnoses Orde r Schedule HEARING EVALUATION Audiology Routine Unspecified chronic suppurative otitis media Simple or unspecified chronic serous otitis media Ordered: 07/28/2011 documented as of this encounter Procedures Procedure Name Priority Date/Time Associated Diagnosis Comments PROCEDURE REPORTS - SCANNED 08/06/2011 16:07 EDT documented in this encounter Results * PROCEDURE REPORTS - SCANNED (08/06/2011 16:07 EDT) 08/06/2011 16:0 7 EDT Narrative Transcriptions DEHYDROGENATION OPERATOR, SCAN 2 - 08/06/2011 16:07 EDT us Scan 2 Needle Control [place] PROCEDURE/MINOR SURGICAL OR DERABLES Final Result documented in this encounter Visit Diagnoses Diagnosis Unspecified chronic suppurative otitis media Simple or unspecified chronic serous otitis media documented in this encounter Care Teams Feather Washer Relationship Specialty Start Date End Date Trell Pittman MD [address] [place] [address] PCP - General 04/10/09 documented as of this encounter
--- OUTSIDE RECORDS SUMMARY | 2024-03-30 21:50 | XMS_ITS | Encounter Summary ---
Author Organization [facility] Address [address] [place] [address] Care Team Providers Care All Purpose Clerk Name Role Phone Trell Pittman MD Primary Care Provider [phone] Reason for Visit * Reason Onset Date Comments Other 06/05/2011 Cough, stuffy no se and sneezing Encounter Details Date Type Department Care Team (Late st Contact Info) Description 06/05/2011 Telephone [facility] Pediatric Pulmonary - [facility] [address] [place] [address] James Franklin MD [address] [place] [address] Other (Cough, stuffy nose and sneezing) Social History Tobacco Use Types Packs/Day Years [...] Mohit Tinajero RN documented in this encounter Miscellaneous Notes * Telephone Encounter - Vaishali García RN - 06/05/2011 1033 EST Spoke with victor manuel, rosario is still coughing, sneezing, has a runny (clear) nose. She is waking up r/t her cough. She is very congested. She is doing her vest TId, albuterol TId, sinus rinse BID, has had 3 courses of abx. Her last cx grew out hemop. Flu, so told her it just may need to run it's course as she is doing everything I have reviewed spacer use. She is using it correctly. I will discuss with dr. Franklin, but told her she may have to let this run it's course a bit longer. * Telephone Encounter - Eloisa Arellano - 06/05/2011 0899 EST Rosario was on Augmentin for two weeks, Omnicef for a week and then back on Augmentin for two weeks. She is still not 100% better. She still has a cough, stuffy nose and is sneezing. Victor Manuel would likea call back this morning. documented in this encounter Plan of Treatment Upcoming Encounters Date Type Department Care Team (Late st Contact Info) Description 04/24/2024 15:30 EST Telemedicine [facility] Pediatric Pulmonary - Main [address] [id number] Victor Manuel Rodgers MD [address] [place] [address] [phone] documented as of this encounter Visit Diagnoses Not on filedocumented in this encounter Care Teams All Purpose Clerk Relationship Specialty Start Date End Date Trell Pittman MD [address] [place] [address] [place] [address] PCP - General 04/10/09 documented as of this encounter
--- OUTSIDE RECORDS SUMMARY | 2024-03-30 21:50 | XMS_ITS | Encounter Summary ---
Author Organization [facility] Address [address] [place] [address] Care Team Providers Care Pest Locator Name Role Phone Trell Pittman MD Primary Care Provider [phone] Encounter Details Date Type Department Care Team (Late st Contact Info) Description 06/26/2011 8:31 EST - 06/26/2011 23:59 EST Hospital Encounter [facility] Pulmonary Function Lab - [facility] [address] [place] [address] James Franklin MD [address] [place] [address] Discharge Disposition: Home or Self [...] three times a week. 6 polyethylene glycol (MIRALAX) 17 gram/dose powder Take 17 g by mouth daily. 1 Bottle 3 06/26/2011 2 PREVACID 30 mg capsule take 1 capsule [...] Code Departure Means Destination Home or Self Senior Living documented in this encounter Plan of Treatment Upcoming Encounters Date Type Department Care Team (Late st Contact Info) Description 04/24/2024 15:[address] [facility] Pediatric [place] [address] Lucy Rodgers MD [address] [place] [phone] documented as of this encounter Visit Diagnoses Not on filedocumented in this encounter Care Teams Pest Locator Relationship Specialty Start Date End Date Trell Pittman MD [address] [facility] [address] PCP - General 04/10/09 documented as of this encounter
--- OUTSIDE RECORDS SUMMARY | 2024-03-30 21:50 | XMS_ITS | Encounter Summary ---
Author Organization [facility] Address [address] [place] [address] Care Team Providers Care Acid Regenerator Name Role Phone Trell Pittman MD Primary Care Provider +1 [phone] Reason for Visit * Reason Onset Date Comments Appointment Related 05/04/2011 Encounter Details Date Type Department Care Team (Late st Contact Info) Description 05/04/2011 Orders Only [facility] - [address] [address] Racquel Cuevas MD [address] [place] [address] [place] [address] Scoliosis (Primary Dx) Social History Tobacco Use Types [...] Mohit Yusuf, RN documented in this encounter Plan of Treatment Upcoming Encounters Date Type Department Care Team (Late st Contact Info) Description 04/24/2024 15:30 EST Telemedicine [facility] Pediatric [facility]monary - Main [place] [address] [place] [address] Lucy Rodgers MD [address] [place] [phone] documented as of this encounter Procedures Procedure Name Priority Date/Time Associated Diagnosis Comments SCOLI 2 VIEW AP & LAT Routine 05/13/2011 10:03 EST Scoliosis documented in this encounter Results * SCOLI 2 VIEW AP & LAT (05/13/2011 10:03 EST) Anatomical Region Laterality Modality Other 05/13/2011 10:0 3 EST 05/13/2011 11:12 EST Narrative 05/13/2011 11:12 EST ENTIRE SPINE AP ??May 13, 2011 10:03:00 AM Clinical history/Comments: 737.30-SCOLIOSIS (AND KYPHOSCOLIOSIS), [id number] Scoliosis Comparison: None Technique: PA and lateral radiographs of the entire spine Findings: There is mild dextroscoliosis of the thoracolumbar spine centered at T10. There may be mild rotation about the thoracolumbar junction. The triradiate cartilages are not fused and there is no calcification of the iliac crest apophyses. The visualized portions of the lungs are clear and the cardiac silhouette is normal. Impression: Mild dextroscoliosis of the thoracolumbar spine centered at T10. I have personally reviewed the images and the above interpretation and agree with the findings. Procedure Note Virgil Coronel MD - 05/13/2011 ENTIRE SPINE AP May 13, 2011 10:03:00 AM Clinical history/Comments: 737.30-SCOLIOSIS (AND KYPHOSCOLIOSIS), [id number] Scoliosis Comparison: None Technique: PA and lateral radiographs of the entire spine Findings: There is mild dextroscoliosis of the thoracolumbar spine centered at T10. There may be mild rotation about the thoracolumbar junction. The triradiate cartilages are not fused and there is no calcification of the iliac crest apophyses. The visualized portions of the lungs are clear and the cardiac silhouette is normal. Impression: Mild dextroscoliosis of the thoracolumbar spine centered at T10. I have personally reviewed the images and the above interpretation and agree with the findings. us Racquel Cuevas MD IMG DIAGNOSTIC IMAGING ORDERABLES Final Result documented in this encounter Visit Diagnoses Diagnosis Scoliosis- Primary Scoliosis (and kyphoscoliosis), idiopathic documented in this encounter Care Teams Acid Regenerator Relationship Specialty Start Date End Date Trell Pittman MD [address] [place] [address] PCP - General 04/10/09 documented as of this encounter
--- OUTSIDE RECORDS SUMMARY | 2024-03-30 21:50 | XMS_ITS | Encounter Summary ---
Author Organization [facility] Address [address] [place] [address] Care Team Providers Care Construction Executive Name Role Phone Trell Pittman MD Primary Care Provider [phone] [phone] Reason for Visit * Reason Onset Date Comments Pharmacy 09/23/2011 Medication not c overed by insurance Encounter Details Date Type Department Care Team (Late st Contact Info) Description 09/23/2011 Telephone [facility] Pediatric Pulmonary - [facility] [address] [place] [address] James Franklin MD [address] [place] [address] Pharmacy (Medication not covered by insurance) Social History Tobacco Use Types Packs/Day Years [...] Last Filled Start Date End Date lactobacillus acidophilus & bulgar (LACTINEX) chewable tablet Take 1 Tab by mouth 3 times daily with meals. 90 Tab 5 09/23/2011 12/08/2011 documented in this encounter Miscellaneous Notes * Telephone Encounter - Bushra Castro RN - 09/23/2011 1424 EDT Per telephone call from pharmacy and discussion with PENOLOGY PROFESSOR pt changed from culturelle to floranex per insurance coverage. D/c'd floranex and called in culturelle. * Telephone Encounter - Eloisa Arellano - 09/23/2011 1053 EDT Culturelle is not covered by insurance. Rosario was on Floranex before (which is covered). Can Culturelle be changed to Floranex? documented in this encounter Plan of Treatment Upcoming Encounters Date Type Department Care Team (Late st Contact Info) Description 04/24/2024 15:30 EST Telemedicine [facility] Pediatric Pulmonary - Main [address] [id number] Lucy Rodgers MD [address] [place] [phone] documented as of this encounter Visit Diagnoses Not on filedocumented in this encounter Discontinued Medications Medication Sig Discontinue Reason Start Date End Da te lactobacillus rhamnosus, GG, (CULTURELLE) 10 billion cell capsule Take 1 Cap by mouth 2 times daily. 09/22/2011 09/23/2011 documented as of this encounter Care Teams Construction Executive Relationship Specialty Start Date End Date Trell Pittman MD [address] [place] [address] PCP - General 04/10/09 documented as of this encounter
--- OUTSIDE RECORDS SUMMARY | 2024-03-30 21:50 | XMS_ITS | Encounter Summary ---
Author Organization [facility] Address [address] [place] [address] Care Team Providers Care Supervisor Prepress Name Role Phone Trell Pittman MD Primary Care Provider [phone] [phone] Reason for Visit * Reason Onset Date Comments Update 09/22/2011 Encounter Details Date Type Department Care Team (Late st Contact Info) Description 09/22/2011 Telephone [facility] Pediatric Pulmonary - [facility] [address] [place] [address] James Franklin MD [address] [place] [phone] Update Social History Tobacco Use Types [...] 1 Cap by mouth 2 times daily. 60 Cap 3 09/22/2011 09/23/2011 documented in this encounter Miscellaneous Notes * Telephone Encounter - Vaishali García RN - 09/24/2011 1601 EDT Spoke with mom, someone from [facility] called her, she will refill out the paperwork to get the hyper brit covered. * Telephone Encounter - Vaishali García RN - 09/22/2011 1454 EDT Spoke with mom, rosario has been on her 2nd round of abx and is complaining of stomach pain. Told her I would order her some culturelle. She feels that her chest is rattly and has thick green sputum in her nose. She is doing all her cares, when she does her nasal rinses she does not get anything out. She is also doing hypertonic saline and wondering if she should continue with that. Her questions: sign up for [facility]? Lm with henny montelongo to inquire about getting her signed up. Spoke with henny and she will contact mom. Vest settings told her to bring her vest to next apt. To meet with respiratory. Can you make your own hypersal? As it is expensive for her. Asked surekha, not really. Working on her cshn coverage as that would be the best way. * Telephone Encounter - Arin Avila - 09/22/2011 1251 EDT Rosario's mother is calling to update pedi pulmo on Rosario documented in this encounter Plan of Treatment Upcoming Encounters Date Type Department Care Team (Late st Contact Info) Description 04/24/2024 15:30 EST Telemedicine [facility] Pediatric Pulmonary - Main [address] [phone] Lucy Rodgers MD [address] [place] [address] documented as of this encounter Visit Diagnoses Not on filedocumented in this encounter Care Teams Supervisor Prepress Relationship Specialty Start Date End Date Trell Pittman MD [address] [place] [address] [address] [facility] [place] [address] PCP - General 04/10/09 documented as of this encounter
--- OUTSIDE RECORDS SUMMARY | 2024-03-30 21:50 | XMS_ITS | Encounter Summary ---
Author Organization [facility] Address [address] [place] [address] Care Team Providers Care Screen Tender Helper Name Role Phone Trell Pittman MD Primary Care Provider [phone] [phone] Reason for Visit * Reason Onset Date Comments Cough 05/12/2011 Encounter Details Date Type Department Care Team (Late st Contact Info) Description 05/12/2011 Telephone [facility] Pediatric Pulmonary - [facility] [address] [place] [address] James Franklin MD [address] [place] [address] Cough Social History Tobacco Use Types Packs/Day Years [...] encounter Miscellaneous Notes * Telephone Encounter - James Franklin MD - 05/12/2011 0967 EST Rosario had been ill with purulent rhinorrhea, productive cough and treated with Omnicef for 10 days. Symptoms never resolved. Antibiotic completed about a week ago, now symptoms are increasing. She is receiving vest 3x daily. Recommend trial of hypertonic saline BID Will see in Clinic at 800 tomorrow (05/12) documented in this encounter Plan of Treatment Upcoming Encounters Date Type Department Care Team (Late st Contact Info) Description 04/24/2024 15:30 EST Telemedicine [facility] Pediatric Pulmonary - [facility] [address] [place], [place] [phone] Lucy Rodgers MD [address] [place] [phone] documented as of this encounter Visit Diagnoses Not on filedocumented in this encounter Care Teams Screen Tender Helper Relationship Specialty Start Date End Date Trell Pittman MD [address] [place] [address] PCP - General 04/10/09 documented as of this encounter
--- OUTSIDE RECORDS SUMMARY | 2024-03-30 21:50 | XMS_ITS | Encounter Summary ---
Author Organization [facility] Address [address] [place] [address] Care Team Providers Care Secretary To Board Of Commissioners Name Role Phone Trell Pittman MD Primary Care Provider [phone] Reason for Visit * Reason Onset Date Comments Appointment Related 03/16/2011 Encounter Details Date Type Department Care Team (Late st Contact Info) Description 03/16/2011 Telephone [facility] Pediatric Pulmonary - [facility] [address] [place] [address] Jason Mohan MD [address] [place] [address] Appointment Related Social History Tobacco [...] Telephone Encounter - Paulina Long RN - 03/16/2011 1341 EDT Mom reports that Rosario has had a cough, rattling sounding chest, low grade fever, decreased appetite and was seen on 03/09 by PCP and placed on Augmentin. She does not feel that she is getting better. She has been taking 4 puffs of Xopenex every 4 hours with some relief. She is using the vest 2-3times per day. She is being seen on 03/[address] Spears and Dr. Estrada, she is not able to be seen by us on 03/30. She is hoping that pt can be seen on 03/18 just to have her lung sounds checked. Willdiscuss with Dr. Mohan and call Mom back. * Telephone Encounter - Harley Melton. - 03/16/2011 0912 EDT Calling to see if they can come in sooner then the th, she isnt doing very well. documented in this encounter Plan of Treatment Upcoming Encounters Date Type Department Care Team (Late st Contact Info) Description 04/24/2024 15:30 EST Telemedicine [facility] Pediatric Pulmonary - [address] [phone] Lucy Rodgers MD [address] [place] [phone] documented as of this encounter Visit Diagnoses Not on filedocumented in this encounter Care Teams Secretary To Board Of Commissioners Relationship Specialty Start Date End Date Trell Pittman [place] [address] PCP - General 04/10/09 documented as of this encounter
--- OUTSIDE RECORDS SUMMARY | 2024-03-30 21:50 | XMS_ITS | Encounter Summary ---
Author Organization [facility] Address [address] [place] [address] Care Team Providers Care Front Office Specialist Name Role Phone Trell Pittman MD Primary Care Provider [phone] [phone] Reason for Visit * Reason Onset Date Comments Results 05/18/2011 Encounter Details Date Type Department Care Team (Late st Contact Info) Description 05/18/2011 Telephone [facility] Pediatric Pulmonary - [facility] [address] [place] [address] James Franklin MD [address] [place] [phone] Results Social History Tobacco Use Types Packs/Day [...] Filled Start Date End Date amoxicillin-clavula cathi (AUGMENTIN ES-600) 600-42.9 mg/5 mL ES suspension Take 4.4 mL by mouth 2 times daily for 14 days. 123.2 mL 0 05/18/2011 06/01/2011 documented in this encounter Miscellaneous Notes * Telephone Encounter - James Franklin MD - 05/18/2011 1620 EST Discussed culture results with mom--throat swab grew H.influenzae beta lactamase positive. Will treat with Augmentin x 14 days. Removed penicillin allergy from chart. documented in this encounter Plan of Treatment Upcoming Encounters Date Type Department Care Team (Late st Contact Info) Description 04/24/2024 15:30 EST Telemedicine [facility] Pediatric Pulmonary - [facility] [address] [place], [place] [phone] Lucy Rodgers MD [address] [place] [phone] documented as of this encounter Visit Diagnoses Not on filedocumented in this encounter Care Teams Front Office Specialist Relationship Specialty Start Date End Date Trell Pittman MD [address] [place] [address] PCP - General 04/10/09 documented as of this encounter
--- OUTSIDE RECORDS SUMMARY | 2024-03-30 21:50 | XMS_ITS | Encounter Summary ---
Author Organization [facility] Address [address] [place] [address] Care Team Providers Care Tdp Displays Analyst Name Role Phone Trell Pittman MD Primary Care Provider [phone] Reason for Visit * Reason Onset Date Comments Other 06/11/2011 ER Visit Encounter Details Date Type Department Care Team (Late st Contact Info) Description 06/11/2011 Telephone [facility] Pediatric Pulmonary - [facility] [address] [place] [address] James Franklin MD [address] [place] [address] Other (ER Visit) Social History Tobacco Use Types Packs/Day Years [...] Telephone Encounter - Vaishali García RN - 06/11/2011 1239 EST Spoke with mom, she is going to start hypertonic saline as she said that helped her in the past. I also encouraged her to do cpt 3 to 4 times a day since they are going into the weekend. I also movedup her apt. Sooner so she could be seen. She is just not being helped in her community. * Telephone Encounter - Eloisa Arellano - 06/11/2011 0923 EST Rosario was in the ER last night for a sore throat and tight chest. Her O2 was 95 then went to 97. She is full of stuff and can't seem to get it out. The ER tried to get a sputum sample by having Rosario spit in a cup, but Rosario was not able to do it. Lucy called the pcp this morning and has notheard back from them yet. documented in this encounter Plan of Treatment Upcoming Encounters Date Type Department Care Team (Late st Contact Info) Description 04/24/2024 15:30 EST Telemedicine [facility] Pediatric Pulmonary - [facility] [address] [place], [place] [phone] Lucy Rodgers MD [address] [place] [phone] documented as of this encounter Visit Diagnoses Not on filedocumented in this encounter Care Teams Tdp Displays Analyst Relationship Specialty Start Date End Date Tre[place] [address] PCP - General 04/10/09 documented as of this encounter
--- OUTSIDE RECORDS SUMMARY | 2024-03-30 21:50 | XMS_ITS | Encounter Summary ---
Author Organization [facility] Address [address] [place] [address] Care Team Providers Care Crystal Calibrator Name Role Phone Trell Pittman MD Primary Care Provider [phone] Reason for Visit * Reason Onset Date Comments URI 03/10/2011 Medication [facility] ion Encounter Details Date Type Department Care Team (Late st Contact Info) Description 03/10/2011 Telephone [facility] Pediatric Pulmonary - [facility] [address] [place] [address] James Franklin MD [address] [place] [address] URI (Medication Question) Social History Tobacco Use Types Packs/Day Years [...] Telephone Encounter - Vaishali García RN - 03/10/2011 4661 EDT Spoke with mom, told her she could increase her saline neb, also told her she should do 4 puffs of albuterol in the morning and mid morning if she is tolerating to continue with that, but if she getsjittery to back on as the day goes on. She feels that would be beneficial for her. She also just started augmentin yesterday. Mom also discussed the need for a 504 plan for her as the school does not have a school nurse and she is not getting her treatments done. She will discuss at her next apt. With us. * Telephone Encounter - Eloisa Arellano - 03/10/2011 0828 EDT Rosario saw her pcp for a bad cold. He has her doing the saline neb 1x/day, her vest, Augmentin, Zithromax M-W-F, and she is also doing Xopenex and Advair. Should she increase the saline neb? documented in this encounter Plan of Treatment Upcoming Encounters Date Type Department Care Team (Late st Contact Info) Description 04/24/2024 15:30 EST Telemedicine [facility] Pediatric Pulmonary - [address] [address] Lucy Rodgers MD [address] [place] [phone] documented as of this encounter Visit Diagnoses Not on filedocumented in this encounter Care Teams Crystal Calibrator Relationship Specialty Start Date End Date Trell Pittman MD [address] [place] [address] PCP - General 04/10/09 documented as of this encounter
--- OUTSIDE RECORDS SUMMARY | 2024-03-30 21:50 | XMS_ITS | Encounter Summary ---
Author Organization [facility] Address [address] [place] [address] Care Team Providers Care Tire Technician Name Role Phone Trell Pittman MD Primary Care Provider [phone] [phone] Encounter Details Date Type Department Care Team (Late st Contact Info) Description 05/15/2011 Abstract [facility] Spine Program - [address] [address] Racquel Cuevas MD [address] [place] [address] [place] [address] Social History Tobacco Use Types Packs/Day Years [...] Contact Info) Description 04/24/2024 15:30 EST Telemedicine [facility] Pediatric Pulmonary - Main [place] [address] [place], [place] [phone] Lucy Rodgers MD [address] [place] [phone] documented as of this encounter Visit Diagnoses Not on filedocumented in this encounter Care Teams Tire Technician Relationship Specialty Start Date End Date Trell Pittman MD [address] [place] [address] PCP - General 04/10/09 documented as of this encounter
--- OUTSIDE RECORDS SUMMARY | 2024-03-30 21:50 | XMS_ITS | Encounter Summary ---
Author Organization [facility] Address [address] [place] [address] Care Team Providers Care Fieldwork Coordinator Name Role Phone Trell Pittman MD Primary Care Provider [phone] Reason for Visit * Reason Comments Cough Encounter Details Date Type Department Care Team (Late st Contact Info) Description 05/13/2011 8:00 EST Office Visit [facility] Pediatric Pulmonary - [facility] [address] [place] [address] Albin Child MD [address] [place] [address] Primary ciliary dyskinesia (Primary Dx) Social History Tobacco Use Types [...] Progress Notes * Albin Child MD - 05/13/2011 0809 EST Images from the original note were not included. Pediatric Pulmonology Albin Child M.D., Hayden Pearce, Jason Mohan M.D. [facility] [place] [address] [place] [id number] Encounter Date: 05/13/2011 Trell Pittman MD [address] [facility] [id number] Chief Complaint: Rosario is a 5 y.o. female who is seen in pulmonary clinic for cough and probable primary cilary dyskinesia. Rosario is accompanied by her mother who contributed to the history. Subjective: Rosario has has been symptomatic with cough and nasal congestion since late March. She was treated with 2 weeks of cefdinir, there was some improvement, but then the cough and congestion worsened off antibiotics. She is coughing all night without awakening. The cough is severe upon awakening in the morning. She is not expectorating sputum. She has had exertional cough without chest tightness or shortness of breath. Xopenex has not relieved her symptoms. She has had no sleep disturbance, chills and night sweats. There was fever two days ago with some decrease in energy. CPT 3 times a day with a vest for 20 minutes. Medication Use: Rescue/quick relief medicines: ?? Xopenex MDI. Rosario has needed to use this medication 3 times a day due to cough following exercise and at night. Preventive/long-term control: ?? fluticasone-salmeterol (ADVAIR) 115mcg-21mcg 2 puffs bid Description of medication technique is adequate. Gastrointestinal/Nutrition: Appetite is good. Diet: healthy diet in general Gastroesophageal reflux symptoms are well controlled with Prevacid. Other abdominal complaints include periumbilical abdominal pain, constipation and gassiness treated with miralax. Otolaryngology: Rosario has had throat clearing, rhinorrhea, sinus congestion and nasal congestion. Sinus rinses are being done daily. There has been yellow/green drainage that has decreased over the last two days. General Health: Overall behavior and activity has been normal. Exercise: very active Rosario has missed 0 days of school due to illness. Environmental History: There have been no changes to the home environment since the last visit. Environmental Tobacco Exposure: Yes, advised to smoke outside Wood stove. REVIEW OF SYSTEMS: Positive for: cough, wheezing, congestion, rhinorrhea Negative for: fever, fatigue, hemoptysis, stridor, vomiting, [...] Outpatient Prescriptions Marked as Taking for the 05/13/11 encounter (Office Visit) with Albin Child MD Medication Sig Dispense Refill ??? PREVACID 30 mg capsule take 1 [...] as needed. ??? fluticasone-salmeterol (ADVAIR HFA) 115-21 mcg/Actuation inhaler [...] in the home brother; Weekdays ??? Education Grade 1 ??? Reported academic performance Excellent Safety and Environmental Exposures ??? Pets Yes 1 dog; 1 cat ??? Carpets Yes Social History was reviewed and updated in [employer]. Relevant elements of social history can be found in the environmental exposures portion of this note. Objective Data There were no vitals taken for this visit. General Appearance: alert, no acute distress Head: normocephalic, atraumatic Eye: no injection, no discharge, PERRLA Ear: TM's clear bilaterally, canals clear bilaterally, PE tubes in place Nose: septum midline, pink mucosa, no discharge Mouth\Throat: moist mucosa, oropharynx without exudate, erythema or thrush Lymph Nodes: anterior cervical lymphadenopathy, left > right Chest\Lungs: Air entry is good bilaterally, wheezing [...] PFT's PFTS (Before Albuterol Treatment) FVC (L): 1.66 liters FVC % Pred: 109 FEV1 (L): 1.52 liters FEV 1 % Pred: 112 FEF 25-75% (L/scc): 2.06 FEV-1/FVC: 92 PFTS (After Albuterol Treatment) FVC (L) (After Albuterol): 1.54 liters FVC % Pred (After Albuterol): 101 FEV1 (L) (After Albuterol): 1.45 liters FEV 1 % Pred (After Albuterol): 106 FEF 25-75% (L/scc) (After Albuterol): 2.69 FEV-1/FVC (After Albuterol): 94 X-rays: No x-rays were reviewed during this encounter Assessment and Plan Rosario is a 5 y.o. 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 She has been symptomatic with cough that suggests ongoing postnasal drip. She may have a chronic sinus infection. Her most recent ciliary biopsy showed some cilia, although a reduced disoriented number. Spirometry (FEV1) was stable today when compared [...] discussed. ?? Triggers and risk factors discussed. Allergies ?? Zaditor as needed ?? Cetirizine daily as needed VIRGINIE ?? Prevacid 30 mg daily PCD ?? Airway clearance TID ?? Sinus rinse kits daily ?? Azithromycin as anti-inflammatory 3 times weekly ?? Throat culture performed today. Chronic Rhintis/Sinusitis ?? Sinus rinse kits Return to clinic 6 weeks Please feel free to contact us with questions or comments regarding Rosario's care. Sincerely, ALBIN CHILD MD documented in this encounter Procedure Notes * Director Bioinformatics, Marsha - 05/27/2011 0534 ESTAssociated Order(s): PULMONARY FUNCTION LAB REPORT - SCANNED documented in this encounter Plan of Treatment Upcoming Encounters Date Type Department Care Team (Late st Contact Info) Description 04/24/2024 15:30 EST Telemedicine [facility] Pediatric Pulmonary - [facility] [place] [address] [place], [place] [address] Lucy Rodgers MD [address] [place] [address] documented as of this encounter Procedures Procedure Name Priority Date/Time Associated Diagnosis Comments PULMONARY FUNCTION REPORT - SCANNED 05/27/2011 13:34 EST CYSTIC FIBROSIS RESPIRATORY CULTURE, SWAB Routine 05/13/2011 8:33 EST Primary ciliary dyskinesia documented in this encounter Results * PULMONARY FUNCTION LAB REPORT - SCANNED (05/27/2011 13:34 EST) 05/27/2011 13:3 4 EST Narrative Transcriptions Director Bioinformatics, Scan - 05/27/2011 13:34 EST us Scan Director Bioinformatics PROCEDURE/MINOR SURGICAL ORDE RABLES Final Result * CYSTIC FIBROSIS RESPIRATORY CULTURE, SWAB (05/13/2011 8:33 EST) Specimen Description Throat [facility] Result Mod HAEMOPHILUS INFLUENZAE, penicillin, ampicillin, and piperacillin resistant (beta lactamase positive). [facility] Result Mod Usual tiff-pharyngeal ana [facility] Report Status 05/18/2011 Final [facility] Specimen from throat (specimen) 05/13/2011 8:33 EST 05/13/2011 9:29 EST us Albin Child MD MICROBIOLOGY - GENERAL ORDERABL ES Final Result [facility] [address] [place] [address] documented in this encounter Visit Diagnoses Diagnosis Primary ciliary dyskinesia- Primary Situs inversus documented in this encounter Discontinued Medications Medication Sig Discontinue Reason Start Date End Da te AMOXICILLIN TRI/POTASSIUM CLAV (AUGMENTIN ORAL) Take by mouth. Therapy completed 05/13/2011 PEDI MVI NO.12/SODIUM FLUORIDE (MVC-FLUORIDE ORAL) Take by mouth. Therapy completed 05/13/2011 polyethylene glycol (MIRALAX) 17 gram/dose powderIndications:GERD (gastroesophageal reflux disease),Unspecified constipation Take 238 g by mouth once for 1 dose. Mix 14 capfuls in 64 ounces of gatorade and drink over 6 hours on Thursday 02/01 for colo prep Duplicate Therapy 01/28/2011 05/13/2011 documented as of this encounter Care Teams Fieldwork Coordinator Relationship Specialty Start Date End Date Trell Pittman MD [address] [place] [address] PCP - General 04/10/09 documented as of this encounter
--- OUTSIDE RECORDS SUMMARY | 2024-03-30 21:50 | XMS_ITS | Encounter Summary ---
Author Organization [facility] Address [address] [place] [address] Care Team Providers Care Anesthesia Tech Name Role Phone Trell Pittman MD Primary Care Provider [phone] Reason for Visit * Reason Comments Follow-up Encounter Details Date Type Department Care Team (Late st Contact Info) Description 03/18/2011 8:50 EDT Office Visit [facility] ENT- Main [address] [address] Felix Spears MD [address] [place] [address], [address] [place] [address] Unspecified chronic suppurative otitis media; [...] Progress Notes * Felix Spears MD - 03/18/2011 0928 EDT CHIEF COMPLAINT: Recurrent otitis media, chronic serous otitis media. SUBJECTIVE: The patient is now in first grade. She has had 2 ear infections associated with upper respiratory infections since her last visit here. They were mild to moderate in nature and treated successfully with eardrops with good resolution. Mom has no hearing concerns. Speech and language is normal. She has had no complaints from her teachers. She has had no recent upper respiratory infection. She had a good Halloween. OBJECTIVE: Alert, cooperative female, well nourished, in no distress today. Voice is normal today. Head and face inspection and palpation are both normal. Salivary glands are normal today. Facial strength is normal today. External ear and nose all normal today. Eyes are normal today with glasses. Otoscopy: Ear canals, eardrums and middle ear spaces are normal bilaterally. There are functioning Maru-T tubes bilaterally without infection or drainage. Nose: Midline septum, congested turbinates, aclear rhinitis. Lip, teeth and gums all normal for her age. Oral cavity, oropharynx is normal today. Palpation of the neck reveals no adenopathy or masses. The thyroid is normal today. ASSESSMENT: Recurrent otitis media, chronic serous otitis media, normal tube check. PLAN: Follow up 6 months. CC: Trell Pittman MD documented in this encounter Plan of Treatment Upcoming Encounters Date Type Department Care Team (Late st Contact Info) Description 04/24/2024 15:30 EST Telemedicine [facility] Pediatric Pulmonary - [address] [address] Lucy Rodgers MD [address] [place] [phone] documented as of this encounter Visit Diagnoses Diagnosis Unspecified chronic suppurative otitis media Simple or unspecified chronic serous otitis media documented in this encounter Historical Medications * This list may reflect changes made after this encounter. AMOXICILLIN TRI/POTASSIUM CLAV (AUGMENTIN ORAL) Take by mouth. 05/13/2011 added in this encounter Care Teams Anesthesia Tech Relationship Specialty Start Date End Date Trell Pittman MD [address] [place] [address] [facility] [place] [address] PCP - General 04/10/09 documented as of this encounter
--- OUTSIDE RECORDS SUMMARY | 2024-03-30 21:50 | XMS_ITS | Encounter Summary ---
Author Organization [facility] Address [address] [place] [address] Care Team Providers Care Chair Pad Maker Name Role Phone Trell Pittman MD Primary Care Provider [phone] [phone] Reason for Visit * Reason Comments Other Encounter Details Date Type Department Care Team (Late st Contact Info) Description 04/19/2011 Refill [facility] [address] [place] [address] Sherley Santana, CARGO SURVEYOR [address] [address] Other Social History Tobacco Use Types Packs/Day [...] Entry Date Author Yes 02/13/2010 0:00 Mohit Tinajero, RN documented in this encounter Ordered Prescriptions Prescription Sig Dispense Quantity Refills Last Filled Start Date End Date PREVACID 30 mg capsule take 1 capsule by mouth once daily 90 Cap 3 04/19/2011 3 documented in this encounter Plan of Treatment Upcoming Encounters Date Type Department Care Team (Late st Contact Info) Description 04/24/2024 15:30 EST Telemedicine [facility] Pediatric Pulmonary - [address] [id number] Lucy Rodgers MD [address] [place] [phone] documented as of this encounter Visit Diagnoses Not on filedocumented in this encounter Discontinued Medications Medication Sig Discontinue Reason Start Date End Da te lansoprazole (PREVACID) 30 mg capsule Take 30 mg by mouth daily. 04/20/2011 PREVACID 30 mg capsule Take 1 Cap by mouth daily for 90 days. Reorder 08/27/2010 04/19/2011 documented as of this encounter Care Teams Chair Pad Maker Relationship Specialty Start Date End Date Trell Pittman MD [address] [place] [address] PCP - General 04/10/09 documented as of this encounter
--- OUTSIDE RECORDS SUMMARY | 2024-03-30 21:50 | XMS_ITS | Encounter Summary ---
Author Organization [facility] Address [address] [place] [address] Care Team Providers Care Lane Marker Installer Name Role Phone Trell Pittman MD Primary Care Provider [phone] [phone] Reason for Visit * Reason Comments Follow-up Encounter Details Date Type Department Care Team (Late st Contact Info) Description 12/08/2011 9:[address] [facility] ENT- [address] [address] Felix Spears MD [address] [place] [address], [address] [place] [address] Unspecified chronic suppurative otitis media; [...] Progress Notes * Felix Spears MD - 12/08/2011 0936 EDT CHIEF COMPLAINT: Recurrent otitis media, chronic serous otitis media. SUBJECTIVE: The patient has had a moderate to severe ear infection on the 24 of November. She had copious amounts of drainage from her ears on both sides, she was treated with eardrops. Ear drops started to hurt approximately on day 3. Mom did finish up the 7-day course. She has had no drainage sincethat time. Her hearing seems good. Speech and language are normal. She is in good health otherwise. REVIEW OF SYSTEMS: General: Healthy. Respiratory: No cough. Positive for asthma though. GI: Some constipation. Neuro: No seizures. Cardiovascular: Normal. : Normal. OBJECTIVE: Healthy, alert, cooperative 5-year-old, well nourished, in no distress. Voice is normal today. Head and face inspection and palpation are both normal. Salivary glands are normal today. Facial strength is normal today. External ear and nose all normal today. Eyes are normal today. Otoscopy: Both ear canals are normal. There are functioning Maru T tubes in both eardrums. Both middle earspaces are clear. Nose: Midline septum, normal turbinates without discharge. Lips, teeth and gums all normal for her age. Oral cavity, oropharynx is normal today. Palpation of the neck reveals no adenopathy or masses. ASSESSMENT: Recurrent otitis media, chronic serous otitis media, normal tube check. PLAN: Follow up 6 months. documented in this encounter Plan of Treatment Upcoming Encounters Date Type Department Care Team (Late st Contact Info) Description 04/24/2024 15:30 EST Telemedicine [facility] Pediatric Pulmonary - Main [address] [address] Lucy Rodgers MD [address] [place] [phone] documented as of this encounter Visit Diagnoses Diagnosis Unspecified chronic suppurative otitis media Simple or unspecified chronic serous otitis media documented in this encounter Discontinued Medications Medication Sig Discontinue Reason Start Date End Da te lactobacillus acidophilus & bulgar (LACTINEX) chewable tablet Take 1 Tab by mouth 3 times daily with meals. 09/23/2011 12/08/2011 documented as of this encounter Care Teams Lane Marker Installer Relationship Specialty Start Date End Date Trell Pittman MD [address] [place] [address] PCP - General 04/10/09 documented as of this encounter
--- OUTSIDE RECORDS SUMMARY | 2024-03-30 21:50 | XMS_ITS | Encounter Summary ---
Author Organization [facility] Address [address] [place] [address] Care Team Providers Care Pool Table Mechanic Name Role Phone Trell Sanon MD Primary Care Provider [phone] Encounter Details Date Type Department Care Team (Late st Contact Info) Description 02/04/2011 10:55 EDT - 02/04/2011 16:08 EDT Hospital Encounter [facility] [address] [place] [address] Keisha Nieto MD [address] [place] [address] Discharge Disposition: Home or Self [...] Taken Comments Blood Pressure - - Pulse 85 02/04/2011 1515 EDT Temperature 36.3 ??C (97.3 ??F) 02/04/2011 1515 EDT Respiratory Rate 20 02/04/2011 1515 EDT Oxygen Saturation 100% 02/04/2011 1515 EDT Inhaled Oxygen Concentration - - Weight 20 kg (44 lb 1.5 oz) 02/04/2011 1113 EDT Height - - Body Mass Index - - documented in this encounter Mental Status * Because of a physical, mental, or emotional condition, do you have serious difficulty concentrating, remembering, or making decisions? (5 years old or older) Answer Entry Date Author Yes 02/13/2010 0:00 EDT Mohit Yusuf RN documented in this encounter Discharge Instructions * Discharge Instructions* Jason Mohan MD - 02/04/2011 15:39 EDT Images from the original note were not included. Pediatric Pulmonology Albin Child M.D., Hayden Pearce, Jason Mohan M.D. [address] [address] Rosario had a bronchoscopy today. If a breathing tube was needed to perform the procedure there maybe some soreness in the throat. In general, the procedure should not cause any pain in the chest. It is common for your child to experience some of the following symptoms during the first 24 hours after the procedure: -cough -fever -feeling tired If biopsies were done, some children may spit up phlegm with streaks of blood. Fever should normally resolve by the following day. Please call if it does not. We will be in touch about your bronchoscopy results ( washings, biopsies, if any) within 3-7 days. If you do not have any follow up appointment scheduled, please call our office. Pediatric Pulmonology [phone] documented in this encounter Medications at Time [...] documented in this encounter Progress Notes * Gita Stokes RN - 02/04/2011 1557 EDT Vasu Mohan MD paged re d/c instructions, plus coordination for mother with prescriptions and follow-up. 1545: Pt calm, quiet, coloring in bed after tolerating po juice. [place], warm, no respiratory distress, or excessive secretions. Pt OOB carried by mother to bathroom, voided large quantity, mother reports sm quantity of stool w/enrique of bright red blood. No other complaints. PIv removed intact. Pt herself recognized silk tape under gauze used to adhere piv. Pt c/o tape causing itching. Skin under tape reddened w/sm blisters forming. D/C instructions reviewed w/mother and grandmother. Pt to home in good condition. * Jason Mohan MD - 02/04/2011 1318 EDT Images from the original note were not included. Pediatric Pulmonology Albin Child M.D., Gene Pearce., Jason Mohan M.D. [place] [phone] Encounter Date: 01/29/2011 TRELL SANON MD Chief Complaint: Rosario is a 5 y.o. female who will have bronchoscopy for recurrent pneumonia, probable PCD and [place]. Subjective: She has generally been well lately. She has had nasal congestion and runny nose over the past few days. She has not had respiratory symptoms. REVIEW OF SYSTEMS: Positive for: runny nose, congestion Negative for: lethargy, fever, fussy, shortness of breath, increased work of breathing, tachypnea, chronic cough, wheezing A complete review of systems was obtained [...] anesth ??? Adenoidectomy ??? Tympanostomy tube placement Past Medical and Surgical History was reviewed [...] Maternal Grandmother ??? Celiac Disease Other Outpatient prescriptions marked as taking for the 02/04/11 encounter (Hospital Encounter) with KEISHA RAINES Medication Sig Dispense Refill ??? Ammonium Lactate (LAC-HYDRIN FIVE) 5 % Lotn Apply topically as needed. ??? lidocaine-prilocaine (EMLA) cream Apply topically. Prior [...] Take by mouth. 1 tsp qd ??? levalbuterol (XOPENEX HFA) 45 mcg/Actuation inhaler Inhale 2 Puffs as directed every 4 hours asneeded. ??? azithromycin (ZITHROMAX) 200 mg/5 mL suspension Take 5 mL by mouth three times a week. Take 1 tsp by mouth (5ml) three times per week (M,W, F) 60 mL 2 ??? Multivitamins with Minerals Tab Take 1 Tab by mouth three times a week. Allergies Allergen Reactions ??? Penicillins Rash ??? Amoxicillin Rash ??? Milk Nausea And Vomiting And itchy, rash, nasal congestion ??? Adhesive Tape Other (See Comments) blisters Living Conditions ??? Lives with Parents ??? Other individuals living in the home brother; Weekdays ??? Education Kindergarten ??? Reported academic performance Excellent Safety and Environmental Exposures ??? Pets Yes 1 dog; 1 cat ??? Carpets Yes Social History was reviewed and updated in [facility]. Relevant elements of social history can be found in the environmental exposures portion of this note. Objective Data Pulse 93 Temp(Src) 36.5 ??C (97.7 ??F) (Temporal) Resp 22 Wt 20 kg (44 lb 1.5 oz) SpO2 100% General Appearance: alert, no acute distress Head: normocephalic, atraumatic Eye: no injection, no discharge, PERRLA Ear: TM's clear bilaterally, canals clear bilaterally Nose: septum midline, pink mucosa, clear discharge Mouth\Throat: moist mucosa, oropharynx without exudate, [...] absent Assessment and Plan Rosario is a 5 y.o. 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 She has had multiple biopsies of her nasal mucosa and trachea that all showed no cilia. She is having a repeat GI endoscopy today to evaluate abdominal pain. We are performing bronchoscopy to evaluate for aspiration, infection and perform tracheal biopsy to confirm PCD diagnosis. Bronchoscopy with lavage for bacteria, lipid laden index, cytology and cell differential. Tracheal biopsy for Primary Ciliary Dyskinesia. MD Jason Londono MD * Cici Guaman Sarabjit - 02/04/2011 1149 EDT Rosario arrived in [place] with her mother and grandmother. Child life checked in with family and they state familiarity with child life services from numerous previous hospital encounters. Although Rosario has had IVs in the past, family states that reviewing developmentally appropriate education would be beneficial. Rosario kept IV catheter, tegaderm, and tourniquette to teach her brother.She became nervous just prior to IV start but held very still. She arrived with Emla in place and it was unclear if she felt anything. She had stated that she wanted to look at an I-Spy board but when it came time, she decided to watch which worked fine for her. Brief education was provided about her procedure. Rosario did not express any questions. She was very shy but appeared to understand education and opened up some over time in [facility]. Diversional activities (I-Spys and blow markers) were provided. Child life accompanied Rosario to her procedure, where Rosario was very quiet again, but smiley. She liked having her mother within reach. Child life will be available upon request if future needs arise. Cici Guaman, REYNAS Certified Interpreter Deaf Pager: [phone] * Liza Almanzar RN - 02/04/2011 1120 EDT Rosario Ace arrived to [place] with family/caregiver. Discussed flow of day, planned procedure, SL/PIV as indicated, recovery and Interpreter Deaf support. Questions answered,concernsaddressed. Emla cream applied at home by mother at 1011. Active LDA's updated. Cici Guaman CCLS in for education. * Liza Almanzar RN - 02/04/2011 1107 EDT Rosario Ace arrived to [place] with family/caregiver. Discussed flow of day, planned procedure, SL/PIV as indicated, recovery and Interpreter Deaf support. Questions answered,concernsaddressed. Emla cream applied at home by mother at 1011. Active LDA's updated. * Utility Worker Driver, Scan - 02/04/2011 0000 EDT * Isabel Porter RN - 02/02/2011 1428 EDT Rosario Todd Malka has been instructed as follows regarding medication administration for the day ofthe scheduled procedure. Date of Surgery: 02/04/11 Instructions for Taking Medications Day of Surgery Medication Last Dose Hold DOS Take DOS Ammonium Lactate (LAC-HYDRIN FIVE) 5 % Lotn Yes polyethylene glycol (MIRALAX) 17 gram/dose powder x lidocaine-prilocaine (EMLA) cream x lansoprazole (PREVACID) 30 mg capsule x sodium chloride sinus rinse (NEILMED SINUS RINSE) Pack x inhalational spacing device (AEROCHAMBER) x fluticasone-salmeterol (ADVAIR HFA) 115-21 mcg/Actuation inhaler x ketotifen (ZADITOR) 0.025 % ophthalmic solution x cetirizine (ZYRTEC) 1 mg/mL Soln x PEDI MVI NO.12/SODIUM FLUORIDE (MVC-FLUORIDE ORAL) x WHEAT DEXTRIN (CHILDREN'S BENEFIBER ORAL) x levalbuterol (XOPENEX HFA) 45 mcg/Actuation inhaler x azithromycin (ZITHROMAX) 200 mg/5 mL suspension x POLYETHYLENE GLYCOL 3350 (MIRALAX ORAL) x Multivitamins with Minerals Tab x documented in this encounter H&P Notes * Keisha Raines MD - 02/04/2011 1235 EDT Sedation for Procedure History & Physical Date: 02/04/2011 Time: 12:35 Location: [facility] endoscopy Planned Procedure: egd and colonoscopy with biopsies Chief Complaint/Indications for Procedure: abd pain History Previous Complication with Sedation and/or Anesthesia? No Allergies: Allergies Allergen Reactions ??? Penicillins Rash ??? Amoxicillin Rash ??? Milk Nausea And Vomiting And itchy, rash, nasal congestion ??? Adhesive Tape Other (See Comments) blisters Current Medications: Prescriptions prior to admission Medication Sig Dispense Refill ??? Ammonium Lactate [...] Take 30 mg by mouth daily. ??? sodium chloride sinus rinse (NEILMED SINUS RINSE) Pack 1 Kit by Nasal route as needed. ??? inhalational spacing device (AEROCHAMBER) [...] (CHILDREN'S BENEFIBER ORAL) Take by mouth. ??? levalbuterol (XOPENEX HFA) 45 mcg/Actuation inhaler Inhale 2 Puffs as directed every 4 hours asneeded. ??? azithromycin (ZITHROMAX) 200 mg/5 mL suspension Take 5 mL by mouth three times a week. Take 1 tsp by mouth (5ml) three times per week (M,W, F) 60 mL 2 ??? POLYETHYLENE GLYCOL 3350 (MIRALAX ORAL) Take 1 Cap by mouth daily. Varies 1- 1/2 caps per day ??? Multivitamins with Minerals Tab Take 1 Tab by mouth three times a week. Past Medical History: Past Medical History Diagnosis Date ??? OM (otitis media) ??? Asthma Always rattley per mom ??? Esophageal reflux ??? Unspecified sinusitis (chronic) ??? Allergic conjunctivitis Social History: Past Surgical History Procedure Date ??? Pyloromyotomy 3 sets of PE tubes ??? Pr bronchoscopy,diagnostic w lavage 02/11/2010 ??? Pr create eardrum opening,gen anesth ??? Adenoidectomy ??? Tympanostomy tube placement History Substance Use Topics ??? Smoking status: Never Smoker ??? Smokeless tobacco: Not on file Comment: No more smoke exposure ??? Alcohol Use: Family History: Family History Problem Relation Age of Onset ??? Allergies Mother environment, amoxicillin ??? Food Intolerance Mother lactose intolerant ??? Constipation Mother ??? Diarrhea Mother ??? Migraines Mother ??? Allergies Father environment ??? Food Intolerance Brother lactose ??? * Paternal Grandfather diverticulitis ??? Diarrhea Maternal Grandmother ??? High Cholesterol Maternal Grandmother ??? Celiac Disease Other Review of Systems as pertinent: none Physical Exam Vital Signs: Pulse 93 Temp(Src) 36.5 ??C (97.7 ??F) (Temporal) Resp 22 Wt 20 kg (44 lb 1.5 oz) SpO2 100% Heart Examination: Cardiac Regularity: Regular Respiratory Examination: Respiratory Pattern: Regular Breath Sounds Right: Clear Breath Sounds Left: Clear Additional physical exam related to the proposed procedure, patient activity, disease state and treatment as pertinent: none Assessment Previous complications with sedation or anesthesia?: No Airway Concerns: None Anesthesia Classification: ASA 1 Fasting Time: Time of last liquid intake: 0000 Date of Last Liquid Intake: 02/04/11 Time of last solid intake: 0000 Date of last solid intake: 02/02/11 Patient Appropriate Candidate for Planned Sedation?: Yes Keisha Nieto MD Attending Physician Pediatric GI, Nutrition and Hepatology [facility] documented in this encounter Procedure Notes * Albin Child MD - 02/04/2011 1611 EDTProcedure(s): MN BRNCHSC W/BRNCL ALVEOLAR LAVAGE Pre-Procedure Diagnose(s): Primary ciliary dyskinesia Post-Procedure Diagnose(s): Primary ciliary dyskinesia PEDIATRIC PROCEDURE NOTE Title of Procedure : Pediatric Bronchoscopy Referring Physician: Albin Child Date Performed: 02/04/2011 Time Performed: 1320 Performed by: ALBIN Khan MD, performed this procedure with assistance from Jason Mohan MD. Erin was present during the entire course of the procedure. Indications and/or Provisional Diagnosis: primary ciliary dyskinesia Consent: Written consent obtained from caregiver after procedure discussed Type of Anesthesia/Sedation: Propofol Fluids Given: See I&O Unless otherwise noted, there was no blood loss, specimens removed, cultures obtained, or drains retained. Time Out: A time-out was completed verifying correct patient, procedure, site, positioning, and special equipment if applicable. Procedure Type: Bronchoscopy with Bronchoalveolar Lavage and tracheal biopsy Equipment Used: Olympus 3.8 mm Procedure Technique/Description of Procedure: Following upper and lower GI endoscopy by Dr. Nieto, an Olympus 3.8 mm flexible bronchoscope was passed through the laryngeal mask airway. Visualization of laryngeal structures revealed: epiglottis & arytenoids were normal, vocal cords moved normally and a total of 1mL of 2% lidocaine was instilled at the cords. The subglottic space was free of lesions. The trachea was normal. There was normal bronchial branching. There were slightly increasedthin secretions in the apical LLL and superior RLL bronchi. The epithelium appeared normal. BAL wasperformed with 20 mL aliquots of non-bacteriostatic normal saline in the superior RLL and anterior RUL. There was a return of 18 mL of cloudy fluid. A pediatric biopsy forceps was then used to obtaina small surface biopsy from the margarita. There was negligible blood loss. Post Procedure Diagnosis: primary ciliary dyskinesia Complications: None, the patient tolerated the procedure well Specimens: Bronchoalveolar lavage sent to lab for: Cell count & differential Gram stain Bacterial culture Lipid laden macrophage index Tracheal biopsy for electron microscopy ALBIN CHILD MD 02/04/2011 16:11 * Utility Worker Driver, Scan - 02/04/2011 0000 EDTAssociated Order(s): PROCEDURE REPORTS - SCANNED * Utility Worker Driver, Scan - 02/04/2011 0000 EDTAssociated Order(s): PROCEDURE REPORTS - SCANNED documented in this encounter OR Notes * Anesthesia Procedure Notes - Utility Worker Driver, Scan - 02/04/2011 0000 EDT * Anesthesia Procedure Notes - Utility Worker Driver, Scan - 02/04/2011 0000 EDT * Anesthesia Preprocedure Evaluation - Utility Worker Driver, Scan - 02/04/2011 0000 EDT documented in this encounter Miscellaneous Notes * Anesthesia Post-Eval - Reny Cagle MD - 02/04/2011 1604 EDT Post Anesthesia Evaluation Note Date of Service: 02/04/2011 Rosario Ace, a 5 y.o. year old female has received General Anesthesia today. She has been evaluated, assessed and discharged from anesthesia care with stable cardiorespiratory function and alert mental status. The last set of recorded vital signs and pain rating were reviewed: Temp: 36.3 ??C (97.3 ??F) (02/04/11 151), BP: (not necessary per anesthesia) (02/04/11 1437), Resp: (off monitor) (02/04/11 1545), SpO2: 100 % (02/04/11 151), Pulse: 85 (02/04/111514),Numeric PainLevel (Scale 1-10): 0 Total: 0 Rosario Ace participated in this evaluation unless otherwise noted. Her pain, nausea and vomiting have been managed and her body temperature and fluid balance have been restored. Additional monitoring and assessment needs have been addressed. If present, any postoperative events are documented below. RENY CAGLE MD 02/04/2011 16:05 * Anesthesia Post-Juan - Ronni Clau - 02/04/2011 1534 EDT Post Anesthesia Evaluation Note Date of Service: 02/04/2011 Rosario Ace, a 5 y.o. year old female has received General Anesthesia today. She has been evaluated, assessed and discharged from anesthesia care with stable cardiorespiratory function and alert mental status. The last set of recorded vital signs and pain rating were reviewed: Temp: 36.3 ??C (97.3 ??F) (02/04/11 151), BP: (not necessary per anesthesia) (02/04/11 1437), Resp: 20 (02/04/11 151), SpO2: 100 % (02/04/11 151), Pulse: 85 (02/04/11 151),Numeric Pain Level (Scale 1-10): 0 Total: 0 Rosario Ace participated in this evaluation unless otherwise noted. Her pain, nausea and vomiting have been managed and her body temperature and fluid balance have been restored. Additional monitoring and assessment needs have been addressed. If present, any postoperative events are documented below. CLAU RUDOLPH MD 02/04/2011 15:34 * Scanned Note-Null - Utility Worker Driver, Scan - 02/04/2011 0000 EDT * Scanned Note-Null - Utility Worker Driver, Scan - 02/04/2011 0000 EDT * Scanned Note-Null - Utility Worker Driver, Scan - 02/04/2011 0000 EDT * Scanned Note-Null - Utility Worker Driver, Scan - 02/04/2011 0000 EDT documented in this encounter Plan of Treatment Upcoming Encounters Date Type Department Care Team (Late st Contact Info) Description 04/24/2024 15:30 EST Telemedicine [facility] Pediatric Pulmonary - [address] [address] Lucy Rodgers MD [address] [place] [phone] documented as of this encounter Procedures Procedure Name Priority Date/Time Associated Diagnosis Comments PROCEDURE REPORTS - SCANNED 02/05/2011 8:00 EDT DIFFERENTIAL, LAVAGE FLUID Routine 02/04/2011 13:15 EDT documented in this encounter Results * PROCEDURE REPORTS - SCANNED (02/05/2011 8:00 EDT) 02/05/2011 8:00 EDT Narrative Procedure Note Utility Worker Driver, Scan - 02/04/2011 0:00 EDT Transcriptions Utility Worker Driver, Scan - 02/04/2011 0:00 EDT us Scan Utility Worker Driver PROCEDURE/MINOR SURGICAL ORDE RABLES Final Result * DIFFERENTIAL, LAVAGE FLUID (02/04/2011 13:15 EDT) Neutrophils, Fluid 4 % [facility] Lymphocytes, Fluid 27 % [facility] [place]/Macro, Fluid 64 % [facility] Mesothelial 5 % [facility] Note Cell count not available, consult Pathologist FARSHAD DOMINGUEZ Bronchial fluid specimen (specimen) 02/04/2011 13:15 EDT 02/04/2011 14:02 EDT us Jason Mohan MD GEN LAB UNIT COLLECT O RDERABLES Final Result [facility] [address] [place] [address] documented in this encounter Visit Diagnoses Not on filedocumented in this encounter Administered Medications Inactive Administered Medications - up to 3 most recent administrations Medication Order MAR Action Action Date Dose Rate Site acetaminophen (INFANT TYLENOL) 80 mg/0.8 ml Drops 200-300 mg 200-300 mg (10-15 mg/kg ? 20 kg), oral, ONCE PRN, 1 dose, Starting on Wed02/04/11 at 1419, Until Wed02/04/11 at 1514, Pain, Pediatric Anesthesia PACU Order, Routine, Recovery (only) Given 02/04/2011 15:14 EDT 240 mg lactated ringers (LR) infusion 5 mL/kg/hr ? 20 kg (rounded to 100 mL/hr), intravenous, CONTINUOUS, Starting on Wed02/04/11 at 1445, Until Wed02/04/11 at 1616, Routine, Recovery (only) Rate Documented 02/04/2011 14:37 EDT 5 mL/kg/hr 100 mL/hr documented in this encounter Historical Medications * This list may reflect changes made after this encounter. Ammonium Lactate (LAC-HYDRIN FIVE) 5 % Lotn Apply topically as needed. 02/02/2011 6 added in this encounter Active and Recently Administered Medications Times are shown in EDT. Continuous Medication Order 02/02/2011 02/03/2011 02/04/2011 lactated ringers (LR) infusion (CANCELED) 5 mL/kg/hr ? 20 kg (rounded to 100 mL/hr), intravenous, CONTINUOUS, Starting on Wed02/04/11 at 1445, Until Wed02/04/11 at 1616, Routine, Recovery (only) 1437 (Rate Documente d - Provider: Gita Stokes, RAÚL) PRN Medication Order 02/02/2011 02/03/2011 02/04/2011 acetaminophen (INFANT TYLENOL) 80 mg/0.8 ml Drops 200-300 mg (COMPLETED) 200-300 mg (10-15 mg/kg ? 20 kg), oral, ONCE PRN, 1 dose, Starting on Wed02/04/11 at 1419, Until Wed02/04/11 at 1514, Pain, Pediatric Anesthesia PACU Order, Routine, Recovery (only) 1514 (Given - Provid er: Gita Stokes RN - Comment: Per anesthesia for post-procedure fever) documented in this encounter Orders Admission Count Last Ordered Date First Orde red Date NOTIFY PPS PATIENT DISCHARGED FROM PACU 1 0 02/04/2011 PPS NOTIFICATION OF SENDING PATIENT OFF THE UNIT 1 02/04/2011 Discharge Count Last Ordered Date First Orde red Date DISCHARGE PATIENT 1 02/04/2011 documented in this encounter Care Teams Pool Table Mechanic Relationship Specialty Start Date End Date Trell San[place] [address] PCP - General 04/10/09 documented as of this encounter
--- OUTSIDE RECORDS SUMMARY | 2024-03-30 21:50 | XMS_ITS | Encounter Summary ---
Author Organization [facility] Address [address] [place] [address] Care Team Providers Care Toppiece Cutter Name Role Phone Trell Pittman MD Primary Care Provider [phone] Reason for Visit * Reason Onset Date Comments Results 02/06/2011 Encounter Details Date Type Department Care Team (Late st Contact Info) Description 02/06/2011 Orders Only [address] [id number] Jason Mohan MD [address] [place] [phone] Cough (Primary Dx) Social History Tobacco Use Types [...] Contact Info) Description 04/24/2024 15:30 EST Telemedicine [address] [place] [id number] Lucy Rodgers MD [address] [place] [address] documented as of this encounter Visit Diagnoses Diagnosis Cough- Primary documented in this encounter Care Teams Toppiece Cutter Relationship Specialty Start Date End Date Trell Pittman MD [address] [place] [address] [place] [address] PCP - General 04/10/09 documented as of this encounter
--- OUTSIDE RECORDS SUMMARY | 2024-03-30 21:50 | XMS_ITS | Encounter Summary ---
Author Organization [facility] Address [address] [place] [address] Care Team Providers Care Crown And Bridge Technician Name Role Phone Trell Pittman MD Primary Care Provider [phone] Reason for Visit * Reason Onset Date Comments Other 03/16/2011 follow up Encounter Details Date Type Department Care Team (Late st Contact Info) Description 03/16/2011 Telephone [facility] [address] [place] [address] Sherley Santana, EMBEDDED FIRMWARE DEVELOPER [address] [phone] Other (follow up) Social History Tobacco Use Types Packs/Day Years [...] encounter Miscellaneous Notes * Telephone Encounter - Sherley Santana - 03/17/2011 1139 EDT Rosario has not had any dysphagia or abdominal pain. OK to schedule next GI appt in 3 months when see pulm. * Telephone Encounter - SatnamMichelle - 03/16/2011 1147 EDT Mother is trying to coordinate follow up appointments with pulmonary, ENT, and GI. She has rescheduled the ENT and pulmonary appointments for a Wednesday (and is aware now that you are not available on a Wednesday). She/We are wondering whether Rosario can follow up with you the next time that she is scheduled to see pulmonary (3 months after) or whether you need to see her in March. She wouldlike to give you an update on how Rosario is doing. documented in this encounter Plan of Treatment Upcoming Encounters Date Type Department Care Team (Late st Contact Info) Description 04/24/2024 15:30 EST Telemedicine [facility] Pediatric Pulmonary - [facility] [address] [place], [place] [address] Lucy Rodgers MD [address] [place] [phone] documented as of this encounter Visit Diagnoses Not on filedocumented in this encounter Care Teams Crown And Bridge Technician Relationship Specialty Start Date End Date Trell Pittman [place] [address] PCP - General 04/10/09 documented as of this encounter
--- OUTSIDE RECORDS SUMMARY | 2024-03-30 21:50 | XMS_ITS | Encounter Summary ---
Author Organization [facility] Address [address] [place] [address] Care Team Providers Care Director Of Property Management Name Role Phone Trell Pittman MD Primary Care Provider +1 [phone] Reason for Visit * Reason Onset Date Comments Appointment Related 10/23/2011 Encounter Details Date Type Department Care Team (Late st Contact Info) Description 10/23/2011 Telephone [facility] - [facility] [address] [place] [address] Sherley Santana, AUTOMATIC COIL MACHINE OPERATOR [address] [phone] Appointment Related Social History Tobacco Use Types [...] encounter Miscellaneous Notes * Telephone Encounter - Juani Barnett - 10/26/2011 1149 EDT Called Mom to schedule (one hour)follow up with Dr. Robles for December. She will call back to schedule. * Telephone Encounter - Sherley Santana - 10/23/2011 1210 EDT Called mother to reschedule Rosario's December appt since I will not be working here. Rosario has hadincreased abdominal pain and less frequent stools. Parents are going through a divorce and there has been a change in her schedule. Mother will start one tablespoon of benefiber daily. Will schedule a f/u visit with Dr. Robles this summer. documented in this encounter Plan of Treatment Upcoming Encounters Date Type Department Care Team (Late st Contact Info) Description 04/24/2024 15:30 EST Telemedicine [facility] Pediatric Pulmonary - [facility] [address] [place], [place] [address] Lucy Rodgers MD [address] [place] [phone] documented as of this encounter Visit Diagnoses Not on filedocumented in this encounter Care Teams Director Of Property Management Relationship Specialty Start Date End Date Trell [place] [address] PCP - General 04/10/09 documented as of this encounter
--- OUTSIDE RECORDS SUMMARY | 2024-03-30 21:50 | XMS_ITS | Encounter Summary ---
Author Organization [facility] Address [address] [place] [address] Care Team Providers Care Community Planning Technician Name Role Phone Trell Pittman MD Primary Care Provider +1 [phone] Reason for Visit * Reason Onset Date Comments Results 05/15/2011 Culture results Encounter Details Date Type Department Care Team (Late st Contact Info) Description 05/15/2011 Telephone [facility] Pediatric Pulmonary - [facility] [address] [place] [address] James Franklin MD [address] [place] [address] Results (Culture results) Social History Tobacco Use Types Packs/Day Years [...] Telephone Encounter - Bushra Castro RN - 05/15/2011 5100 EST Left VM on home phone, per results the final result is still pending. * Telephone Encounter - Vaishali García RN - 05/15/2011 1042 EST No results at 10:45 this morning. Will check later in the day and call mom. * Telephone Encounter - Eloisa Arellano - 05/15/2011 1022 EST Lucy would like [facility]'s culture results. documented in this encounter Plan of Treatment Upcoming Encounters Date Type Department Care Team (Late st Contact Info) Description 04/24/2024 15:30 EST Telemedicine [facility] Pediatric Pulmonary - [facility] [address] [place], [place] [address] Lucy Rodgers MD [address] [place] [phone] documented as of this encounter Visit Diagnoses Not on filedocumented in this encounter Care Teams Community Planning Technician Relationship Specialty Start Date End Date Trell Pittman MD [address] [place] [address] PCP - General 04/10/09 documented as of this encounter
--- OUTSIDE RECORDS SUMMARY | 2024-03-30 21:50 | XMS_ITS | Encounter Summary ---
Author Organization [facility] Address [address] [place] [address] Care Team Providers Care Bread Supervisor Name Role Phone Trell Pittman MD Primary Care Provider [phone] [phone] Reason for Visit * Reason Onset Date Comments Medication Problem 04/08/2011 Encounter Details Date Type Department Care Team (Late st Contact Info) Description 04/08/2011 Refill [facility] Pediatric Pulmonary - [facility] [address] [place] [address] Bushra Castro RN Medication Problem Social History Tobacco Use Types [...] Telephone Encounter - Bushra Castro RN - 04/08/2011 1969 EST Spoke with pt's mother who states her PCP prescribed omnicef and she does not have insurance until Apr.16 and the omnicef is $100.00 that she does not have. Pt is allergic to amoxicillian. Discussed with MD who agrees omnicef is best choice due to allergy to amx. Returned call to pt's mother who states she might not be able to buy the medication until this weekend, discussed possible options for paying for medication. She is going to call her local pharmacy to discuss. Reinforced that MD feels this is the best drug at this time and the importance of Rosario receiving an abx. Mother states shewill take pt to ED if her condition becomes worse over the weekend. documented in this encounter Plan of Treatment Upcoming Encounters Date Type Department Care Team (Late st Contact Info) Description 04/24/2024 15:30 EST Telemedicine [facility] Pediatric Pulmonary - [address] [phone] Lucy Rodgers MD [address] [place] [phone] documented as of this encounter Visit Diagnoses Not on filedocumented in this encounter Care Teams Bread Supervisor Relationship Specialty Start Date End Date Trell Pittman MD [address] [place] [address] PCP - General 04/10/09 documented as of this encounter
--- OUTSIDE RECORDS SUMMARY | 2024-03-30 21:50 | XMS_ITS | Encounter Summary ---
Author Organization [facility] Address [address] [place] [address] Care Team Providers Care Infection Control Nurse Name Role Phone Trell Pittman MD Primary Care Provider +1 [phone] Reason for Visit * Reason Comments Other Encounter Details Date Type Department Care Team (Late st Contact Info) Description 11/03/2011 Refill [facility] - [facility] [address] [place] [address] Sherley Santana, SQL APPLICATION DEVELOPER [address] [phone] Other Social History Tobacco Use [...] Filled Start Date End Date polyethylene glycol (GLYCOLAX) 17 gram/dose powder take 1 CAPFUL (17GM) (DISSOLVED IN WATER) by mouth once daily 527 g 3 11/03/2011 08/08/2012 documented in this encounter Plan of Treatment Upcoming Encounters Date Type Department Care Team (Late st Contact Info) Description 04/24/2024 15:30 EST Telemedicine [facility] Pediatric Pulmonary - [address] [phone] Lucy Rodgers MD [address] [place] [phone] documented as of this encounter Visit Diagnoses Not on filedocumented in this encounter Discontinued Medications Medication Sig Discontinue Reason Start Date End Da te polyethylene glycol (MIRALAX) 17 gram/dose powder Take 17 g by mouth daily. Reorder 06/26/2011 11/03/2011 documented as of this encounter Care Teams Infection Control Nurse Relationship Specialty Start Date End Date Trell Pittman MD [address] [place] [address] [place] [address] PCP - General 04/10/09 documented as of this encounter
--- OUTSIDE RECORDS SUMMARY | 2024-03-30 21:50 | XMS_ITS | Encounter Summary ---
Author Organization [facility] Address [address] [place] [address] Care Team Providers Care Payroll Coordinator Name Role Phone Trell Pittman MD Primary Care Provider +1 [phone] Reason for Visit * Reason Onset Date Comments Sinusitis 04/07/2011 Encounter Details Date Type Department Care Team (Late st Contact Info) Description 04/07/2011 Telephone [facility] Pediatric Pulmonary [facility] [address] [place] [address] James Franklin MD [address] [place] [address] Sinusitis Social History Tobacco Use Types Packs/Day Years [...] * Telephone Encounter - Harley Melton - 04/07/2011 1357 EST Calling to report that she is sick again with what seems like the same thing as last month. Green nose, fever, not sleeping, PPC says that her lungs are clear, wants to try another med but its not available, she would like to talk to a nurse or one of the docs about this. documented in this encounter Plan of Treatment Upcoming Encounters Date Type Department Care Team (Late st Contact Info) Description 04/24/2024 15:30 EST Telemedicine [facility] Pediatric Pulmonary - [facility] [address] [place], [place] [phone] Lucy Rodgers MD [address] [place] [phone] documented as of this encounter Visit Diagnoses Not on filedocumented in this encounter Care Teams Payroll Coordinator Relationship Specialty Start Date End Date [place] [address] PCP - General 04/10/09 documented as of this encounter
--- OUTSIDE RECORDS SUMMARY | 2024-03-30 21:50 | XMS_ITS | Encounter Summary ---
Author Organization [facility] Address [address] [place] [address] Care Team Providers Care Intermediate Accountant Name Role Phone Trell Sanon MD Primary Care Provider +1 [phone] Encounter Details Date Type Department Care Team (Late st Contact Info) Description 02/04/2011 Results Only [facility] [address] [phone] Keisha Nieto MD [address] [place] [phone] Social History Tobacco Use Types Packs/Day [...] Telemedicine [facility] Pediatric Pulmonary [address] [address] Lucy Rodgers MD [address] [place] [phone] Pending Results Name Type Priority Associated Diagnoses Date /Time ELECTRON MICROSCOPY Lab Routine 02/04 13:30 EDT documented as of this encounter Procedures Procedure Name Priority Date/Time Associated Diagnosis Comments ELECTRON MICROSCOPY Routine 02/04/2011 1 3:30 EDT CYTOPATHOLOGY Routine 02/04/2011 0:00 EDT SURGICAL PATHOLOGY Routine 02/04/2011 0: 00 EDT SURGICAL PATHOLOGY Routine 02/04/2011 0: 00 EDT documented in this encounter Results * ELECTRON MICROSCOPY (02/04/2011 13:30 EDT) Accession number [id number] JAYLIN DOMINGUEZ Referring Pathologist/Physi kam (Note) ANTONIO DOMINGUEZ Comment:[facility]io [facility] Care Referring Path/Phys Address (Note) ANTONIO DOMINGUEZ Comment: ?[address] [facility] ?[place] [address] ?[phone] Specimen (Note) ANTONIO DOMINGUEZ Comment:A:Blood or Wet Tissu e Material (Note) ANTONIO DOMINGUEZ Comment: tracheal - 1 tissue ([id number]) SLIDE DISPOSITION: Prints mailed 03/03/11 [email or web address]. Diagnosis Code (Note) SHARONDA DOMINGUEZ Comment: [id number], trachea (Prints [id number]): Cross-sections of ciliary axonemes show focal random ciliary orientation (see comment). Comment (Note) ANTONIO DOMINGUEZ Comment: The tissue is well fixed. ??Less than 10 total ciliated cells are available for evaluation. ??Of these, only two cells present in the specimen had large groups of cross-sectioned cilia associated with the cell. ??In these, there appears to be some random orientation of the ciliary axonemes. ??Basal bodies are normal in normal and disposition. ??Peripheral microtubular pairs are normal-appearing as are radial spokes and dynein arms. The above described findings are somewhat non-specific and, while they could potentially be related to a primary ciliary dyskinesia, may also be related to local inflammatory processes. ??This is particularly true given the few cells available for evaluation. While the orientation is considered abnormal, it is difficult to ascribe definitive significance to it, given the non-specific nature of the findings as well as the scant tissue available for evaluation. Signing Pathologist 02/27/2011 17:06 Interpreted by: Mitchel Stafford Comment: (Note) Report electronically signed by Kulwinder Malhotra M.D. Transcribed by: [email or web address] 02/27/2011 16:48:23 Performed or Referred by: [facility] Dpt of Lab Med and Path, [address] [place] [address], Lab Dir: Oleg Young III, MD Specimen of unknown material (specimen) 02/04/2011 13:30 EDT 02/04/2011 16:49 EDT us Sabi Mohan MD CHEMISTRY & BLOOD GAS ORDERABLES Final Result ANTONIO DOMINGUEZ [address] [place] [address] * SURGICAL PATHOLOGY (02/04/2011 0:00 EDT) Pathology Report: SURGICAL PATHOLOGY REPORT Reports generated via electronic interface contain original data; however they are lacking the format of the original report. Caution should be taken when reading/interpreti ng unformatted reports. Name: ? ROSARIO HART ? Accession #: ? [id number] ? : ? 2005 (Age: 5) ??F ?Collect Date: ? 02/04/2011 ? Location: ? ENDO ? Receive Date: ? 02/04/2011 ? Provider: KEISHA MAYORGA MD Copy to: ALBIN MOHAN MD ? SEND OUT TEST SUMMARY REPORT ? Date Ordered: ? 02/04/2011 ? Status: ?? Signed Out ?Date Complete: ? 03/12/2011 ? By: ??Stephanie Kilgore ? Date Reported: ? 03/12/2011 ? Interpretation ? [facility] report: [id number], trachea (prints [id number]): ??Cross sections of the ciliary axonemes show focal random ciliary orientation. ??The tissue is well fixed. ??Less than 10 total ciliated cells are available for evaluation. ??Of these, only two cells present in the specimen had large groups of cross sectioned cilia associated with the cell. ??In these, there appears to be some random orientation of the ciliary axonemes. ??Basal bodies are normal in number and disposition. ??Peripheral microtubular pairs are normal appearing, as are radial spokes and dynein arms. ??The above described findings are somewhat non-specific and, while they could potentially be related to primary ciliary dyskinesia, may also be related to local inflammatory processes. ??This is particularly true, given the few cells available for evaluation. ??While the orientation is considered abnormal, it is difficult to ascribe definitive significance to it, given the non-specific nature of these findings as well as the scant tissue available for evaluation. ??This was interpreted by Kulwinder Malhotra MD, on February 27, 2011 at [facility]. ?? Description ? Received: ? Tracheal biopsy for EM ciliary dyskinesis studies ? Clinical History: ? 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 Gross description: ? [facility] (after being placed in 10% neutral buffered formalin for 2 minutes) labelled Rosario Hart is a white, focally red soft piece of tissue which measures roughly 0.2 x 0.1 by less than 0.1 cm. ??The specimen is sent to [facility] for ciliary dyskinesis EM studies. ??(Son Garza/eliana Document reviewed and electronically signed by: ? CHERELLE OLSEN MD ? Report date: 03/12/2011 By the signature above, the attending physician certifies that he/she has personally conducted a gross and/or microscopic examination of the described specimens and rendered or confirmed the above diagnosis. End of Report ANTONIO DOMINGUEZ 02/04/2011 02/04/2011 15: 46 EDT Keisha Nieto MD PATHOLOGY ORDERABLES Final Result Performing Organization Address City/State/[facility] Co de Phone Number ANTONIO [facility] [address] [place] [address] * CYTOPATHOLOGY (02/04/2011 0:00 EDT) Pathology Report: CYTOPATHOLOGY REPORT ? Reports generated via electronic interface contain original data; ? however they are lacking the format of the original report. ? Caution should be taken when reading/interpreti ng unformatted reports. ? Name: ? TANNER, ROSARIO A ? Accession #: ? [id number] ? : ? 2005 (Age: 5) ??F ?Collect Date: ? 02/04/2011 ? Location: ? ENDO ? Receive Date: ? 02/04/2011 ? Provider: ? SABI J MOHAN MD ? Copy to: ?KEISHA MAYORGA MD ? TRELL SANON MD ? CYTOLOGIC DIAGNOSIS: ? Bronchial lavage, cytologic evaluation: ? 1. ?Negative for malignant cells. ? 2. ? Lipid laden macrophage index is 45/400. ??See comment. ? COMMENT: ? In pediatric patients, a lipid laden macrophage index (LLMI) on Oil Red O ?? stain of 90 or above, would be suspicious of recurrent aspiration (Oscar Ramirez, ?? Ramses T. Pediatric Pulmonology 1987, 3:86-89). Data on adult patients is ? limited, but indicates the clinically significant score to be greater than 100. (Matteo R, Roberto R,Dharmesh Hurtado. Aust [place] J Med 1997; 27:550-553). In all cases, ?? the LLMI should be used in the context of the patient' s clinical and radiologic features. ??(Dr. Moss)/alfredo ? Document reviewed and electronically signed by: ? LISBETH HALL MD ? Report Date: ??02/05/2011 16:06 ? By the signature above, the attending physician certifies that he/she has ? personally conducted a gross and/or microscopic examination of the described ? specimens and rendered or confirmed the above diagnosis. ? Specimen Type: ? Bronchial Lavage ? Clinical History: ? Recurrent pneumonia (suspected PCD and [place]) ? Gross Description: ? 20 cc of cloudy pale white fluid were received and processed by selective ?? cellular enhancement technique. ? End of Report ? ANTONIO DOMINGUEZ 02/04/2011 02/04/2011 15: 11 EDT us Sabi Mohan MD PATHOLOGY ORDERABLES F inal Result ANTONIO DOMINGUEZ [address] [place] [address] * SURGICAL PATHOLOGY (02/04/2011 0:00 EDT) Pathology Report: SURGICAL PATHOLOGY REPORT ? Reports generated via electronic interface contain original data; ? however they are lacking the format of the original report. ? Caution should be taken when reading/interpreti ng unformatted reports. ? Name: ? TANNER, ROSARIO A ? Accession #: ? [id number] ? : ? 2005 (Age: 5) ??F ? Collect Date: ? 02/04/2011 ? Location: ? ENDO ? Receive Date: ? 02/04/2011 ? Provider: KEISHA MAYORGA MD ? Copy to: TRELL Hurtado KANTROWITZ MD ? Final Pathologic Diagnosis: ? A. ?Esophagus, mid, biopsy: ? 1. ?No pathologic features. ? B. ?Esophagus, distal, biopsy: ? 1. ?No pathologic features. ? C. ?Stomach, antrum, biopsy: ? 1. ?Mild chronic gastritis. ? 2. ?No Helicobacter pylori-like microorganisms identified on ? H&E-stained sections. ? D. ?Small intestine, duodenum, biopsy: ? 1. ?No pathologic features. ? E. ?Colon, terminal ileum, biopsy: ? 1. ?Prominent lymphoid aggregate, no pathologic features. ? F. ?Colon, cecum/right colon, biopsy: ? 1. ?No pathologic features. ? G. ?Colon, transverse, biopsy: ? 1. ?No pathologic features. ? H. ?Colon, left, biopsy: ? 1. ?No pathologic features. ? I. ?Rectum, biopsy: ? 1. ?No pathologic features. ? Document reviewed and electronically signed by: ? MARY B AMBAYE MD ? Report ??Date: 02/06/2011 15:03 ? By the signature above, the attending physician certifies that he/she has ? personally conducted a gross and/or microscopic examination of the described ? specimens and rendered or confirmed the above diagnosis. ? Specimen(s) Received: ? A. ?Mid esophagus ? B. ? Distal esophagus ? C. ? Antrum ? D. ? Duodenum ? E. ? Terminal ileum ? F. ? Cecum/R colon ? G. ? Transverse colon ? H. ? L colon ? I. ? Rectum ? J. ? Clinical History: ? Abd pain ? Gross Description: ? Received in formalin labelled Rosario Hart and A is a pink-white ?? irregular soft tissue fragment measuring 0.5 x 0.4 x 0.1 cm. ??The specimen is ?? entirely submitted as (A). ? Received in formalin labelled Rosario Hart and B is a juan-pink irregular soft tissue fragment measuring 0.6 x 0.3 x 0.2 cm. ??The specimen is entirely ? submitted as (B). ? Received in formalin labelled Rosario Hart and C is a juan-pink irregular soft tissue fragment measuring 0.5 x 0.2 x 0.2 cm. ??The specimen is entirely ? submitted as (C). ? Received in formalin labelled Tanner, Rosario and D are two juan-pink ? irregular soft tissue fragments measuring 0.5 x 0.3 x 0.3 cm and 0.9 x 0.3 x 0.2 cm. ??The specimens are entirely submitted as (D). ? Received in formalin labelled Tanner, Rosario and E is a juan-pink irregular soft tissue fragment measuring 0.4 x 0.4 x 0.3 cm. ??The specimen is entirely ? submitted as (E). ? Received in formalin labelled Rosario Hart and F is a juan-pink irregular soft tissue fragment measuring 0.6 x 0.3 x 0.2 cm. ??The specimen is entirely ? submitted as (F). ? Received in formalin labelled Rosario Hart and G is a juan-pink irregular soft tissue fragment measuring 0.4 x 0.3 x 0.1 cm. ??The specimen is entirely ? submitted as (G). ? Received in formalin labelled Rosario Hart and H is a juan-pink irregular soft tissue fragment measuring 0.4 x 0.3 x 0.2 cm. ??The specimen is entirely ? submitted as (H). ? Received in formalin labelled Rosario Hart and I is a juan-pink irregular soft tissue fragment measuring 0.6 x 0.3 x 0.2 cm. ??The specimen is entirely ? submitted as (I). ??(Sina Riley)/alfredo ? End of Report ? [facility] 02/04/2011 02/04/2011 14: 59 EDT us Keisha Nieto MD PATHOLOGY ORDERABLES Final Result [facility] [address] [place] [address] documented in this encounter Visit Diagnoses Not on filedocumented in this encounter Care Teams Intermediate Accountant Relationship Specialty Start Date End Date Trell Sanon MD [address] [place] [address] [place] [address] PCP - General 04/10/09 documented as of this encounter
--- OUTSIDE RECORDS SUMMARY | 2024-03-30 21:50 | XMS_ITS | Encounter Summary ---
Author Organization [facility] Address [address] [place] [address] Care Team Providers Care Plate Molder Name Role Phone Trell Pittman MD Primary Care Provider [phone] [phone] Reason for Visit * Reason Onset Date Comments Follow-up 02/05/2011 Encounter Details Date Type Department Care Team (Late st Contact Info) Description 02/05/2011 Telephone [facility] Pediatric Specialty Center - [facility] [address] [place] [address] Sharad Nieto MD [address] [place] [address] Follow-up Social History Tobacco Use [...] Telephone Encounter - Vaishali García RN - 02/05/2011 1631 EDT Spoke with mom , told her that the fever and coughing is par for the course. To offer tylenol to help, also To call us back if she is not better. Told her to observe her and give her 24 hours. She will call back with any concerns. * Telephone Encounter - Arin Avila - 02/05/2011 1311 EDT Rosario's mother is calling regarding procedures done with Pedi Gi and Pedi pulmo. After coming here, had bloody bowel movements, wondered if normal. Also mild abdominal pain. Coughing and nose was running. Low grade fever as well. Sending this message to both offices. documented in this encounter Plan of Treatment Upcoming Encounters Date Type Department Care Team (Late st Contact Info) Description 04/24/2024 15:30 EST Telemedicine [facility] Pediatric Pulmonary - [facility] [address] [place], [place] [phone] Lucy Rodgers MD [address] [place] [address] documented as of this encounter Visit Diagnoses Not on filedocumented in this encounter Care Teams Plate Molder Relationship Specialty Start Date End Date [place] [address] PCP - General 04/10/09 documented as of this encounter
--- OUTSIDE RECORDS SUMMARY | 2024-03-30 21:50 | XMS_ITS | Encounter Summary ---
Author Organization [facility] Address [address] [place] [address] Care Team Providers Care Information Technology Program Manager Name Role Phone Trell Pittman MD Primary Care Provider [phone] [phone] Encounter Details Date Type Department Care Team (Late st Contact Info) Description 06/18/2011 8:45 EST - 06/18/2011 23:59 EST Hospital Encounter [facility] Pulmonary Function Lab - [facility] [address] [place] [address] Unknown, Provider, James Reyna MD [address] [place] [address] Asthma; Primary ciliary dyskinesia Discharge Disposition: Home or Self Care Social [...] qd 6 fluticasone-salme terol (ADVAIR HFA) 115-21 mcg/Actuation inhaler Inhale 2 Puffs as directed 2 times daily. Use with spacer 1 Inhaler 5 12/22/2010 2 inhalational spacing device (AEROCHAMBER) Inhale 1 Device as directed daily as needed. 1 Device 1 12/22/2010 3 ketotifen (ZADITOR) 0.025 % ophthalmic solution Place 2 Drops into both eyes 2 times daily. 2 levalbuterol (XOPENEX HFA) 45 mcg/Actuation inhaler Inhale 2 Puffs as directed every 4 hours as needed. 1 Inhaler 6 02/12/2011 3 lidocaine-priloca ine (EMLA) creamIndications: GERD (gastroesophageal reflux disease),Unspecif ied constipation Apply topically. Prior to procedure 1 Tube 0 01/28/2011 2 montelukast (SINGULAIR) 5 mg chewable tablet Take 1 Tab by mouth every evening. 30 Tab 6 03/18/2011 4 Multivitamins with Minerals Tab Take 1 Tab by mouth three times a week. 6 POLYETHYLENE GLYCOL 3350 (MIRALAX ORAL) Take 1 Cap by mouth daily. Varies 1-1/2 caps per day 07/29/2010 2 PREVACID 30 mg capsule take 1 capsule by mouth once daily 90 Cap 3 04/19/2011 3 sodium chloride sinus rinse (NEILMED SINUS RINSE) Pack 1 Kit by Nasal route as needed for Other. 1 Kit 5 02/04/2011 2 UNABLE TO FIND Take 7 % by nebulization 2 times daily. Med Name:Hyper tonic Saline (7%) 3 WHEAT DEXTRIN (CHILDREN'S BENEFIBER ORAL) Take by mouth. 06/26 2 documented as of this encounter Discharge Disposition Disposition Code Departure Means Destination Home or Self [facility] documented in this encounter Progress Notes * Amy Maza RT - 06/18/2011 0908 EST Testing was performed and recorded in [employer]. documented in this encounter Procedure Notes * Manager Project Management, Scan - 07/02/2011 0624 ESTAssociated Order(s): PULMONARY FUNCTION LAB REPORT - SCANNED documented in this encounter Plan of Treatment Upcoming Encounters Date Type Department Care Team (Late st Contact Info) Description 04/24/2024 15:30 EST Telemedicine [facility] Pediatric Pulmonary - [facility] [address] [place] [address] Lucy Rodgers MD [address] [place] [phone] documented as of this encounter Procedures Procedure Name Priority Date/Time Associated Diagnosis Comments PULMONARY FUNCTION REPORT - SCANNED 07/02/2011 6:24 EST documented in this encounter Results * PULMONARY FUNCTION LAB REPORT - SCANNED (07/02/2011 6:24 EST) 07/02/2011 6:24 EST Narrative Transcriptions Manager Project Management, Scan - 07/02/2011 6:24 EST us Scan Manager Project Management PROCEDURE/MINOR SURGICAL ORDE RABLES Final Result documented in this encounter Visit Diagnoses Diagnosis Asthma Unspecified asthma Primary ciliary dyskinesia Situs inversus documented in this encounter Administered Medications Inactive Administered Medications - up to 3 most recent administrations Medication Order MAR Action Action Date Dose Rate Site albuterol (PROVENTIL HFA, VENTOLIN HFA) inhaler 2 Puff 2 Puff, inhalation, Once (Without Time Specified), 1 dose, Starting on [place] 06/18/11 at 0930, Until [place] 2 at 0900, Routine Given 06/18/2011 9:00 EST 2 Puffs documented in this encounter Orders Medications Ordered That Janes ht Not Have Been Administered Count Last Ordered Date First Ordered Date albuterol (PROVENTIL HFA, VE NTOLIN HFA) inhaler 2 Puff 1 06/18/2011 documented in this encounter Care Teams Information Technology Program Manager Relationship Specialty Start Date End Date Trell Pittman MD [address] [place] [address] PCP - General 04/10/09 documented as of this encounter
--- OUTSIDE RECORDS SUMMARY | 2024-03-30 21:50 | XMS_ITS | Encounter Summary ---
Author Organization [facility] Address [address] [place] [address] Care Team Providers Care Wallpaper Cleaner Name Role Phone Trell Pittman MD Primary Care Provider [phone] [phone] Reason for Visit * Reason Comments Scoliosis Encounter Details Date Type Department Care Team (Late st Contact Info) Description 05/13/2011 10:00 EST Office Visit [facility] Spine Program - [address] [place] [address] Racquel Cuevas MD [address] [place] [address] [place] [address] Person with feared complaint in whom no diagnosis was made (Primary Dx) Social History Tobacco Use Types [...] - Inhaled Oxygen Concentration - - Weight 21.3 kg (47 lb) 05/13/2011 1024 EST Height 123.2 cm (4' 0.5) 05/13/2011 1024 EST Body Mass Index 14.05 05/13/2011 1024 EST Body Mass Index Percentile 16.24% 05/13/2011 102 4 EST Growth Chart: [facility] (Girls, 2- 20 Years) documented in this encounter Mental Status * Because of a physical, mental, or emotional condition, do you have serious difficulty concentrating, remembering, or making decisions? (5 years old or older) Answer Entry Date Author Yes 02/13/2010 0:00 Mohit Tinajero RN documented in this encounter Progress Notes * Melody Cuevas MD - 05/13/2011 1204 EST Problem: Scoliosis Check HPI: Rosario Ace is a 5 y.o. female who is seen in consultation for Dr. Pittman for a scoliosis check, accompanied by her mom. She is otherwise healthy with no relevant medical or surgical history; She was born on time by with no history of CDH or other orthopaedic problem. Currently she is cared for by Dr. Franklin for ciliary dyskinesis causing pulmonary and ear problems, and she has acid reflux. She has no pain in the low back, denies radiating symptoms, gait/balance disturbance,unusual birthmarks, recent hospitalizations or constitutional symptoms. Menarchal status is negative. She has an allergy to PCN and amoxicillin which causes a rash. She has an uncle that required scoliosis treatment. Mom is 5 foot but her father is well over 6 foot. PMH: Noncontributory. PSH: None. Meds: Please see PRISM database. ROS: Negative for ten systems (documented on intake sheet). Please see PRISM database for current height and weight as well as vital signs. This is a pleasant,cooperative, cheerful and alert female who is a Bart 2. Sagittal and coronal balance is normal, gait is normal, able to heel and toe walk, squat, and move around the exam room independently. There are no birthmarks on her back, hairline is normal, pelvis is level. All spinal landmarks are palpable without midline tenderness. Hair, skin and nail patterns of the hands are normal. Reflexes are normoactive in both LE and abdomen. Felipe' forward bending test is unremarkable. Full length PA and lateral scoliosis films document normal contours, no curvature, no localized kyphosis or lordosis. She has a slight coronal shift in the mid thoracic spine which does not have any rotation. There is no evidence of congenital malformation or spina bifida. Shoulders are level, pelvis is level. There is no vertebral rotation. She is a Risser 0. Impression: Normal spine structurally. No evidence for scoliosis. Currently at 5 y.o. so risk of developing a curvature is low but would recommend clinical screening exam at 10 or 11 years old given the family history and her height potential. Would be glad to reassess earlier if there are any concerns at that point. Melody Cuevas MD documented in this encounter Plan of Treatment Upcoming Encounters Date Type Department Care Team (Late st Contact Info) Description 04/24/2024 15:30 EST Telemedicine [facility] Pediatric Pulmonary - [address] [phone] Lucy Rodgers MD [address] [place] [phone] documented as of this encounter Visit Diagnoses Diagnosis Person with feared complaint in whom no diagnosis was made- Primary documented in this encounter Care Teams Wallpaper Cleaner Relationship Specialty Start Date End Date Trell Pittman MD [address] [place] [address] PCP - General 04/10/09 documented as of this encounter
--- OUTSIDE RECORDS SUMMARY | 2024-03-30 21:50 | XMS_ITS | Encounter Summary ---
Author Organization [facility] Address [address] [place] [address] Care Team Providers Care Paper Deliverer Name Role Phone Trell Pittman MD Primary Care Provider [phone] [phone] Reason for Visit * Reason Onset Date Comments Results 02/12/2011 Encounter Details Date Type Department Care Team (Late st Contact Info) Description 02/12/2011 Telephone [facility]ty [facility] - [facility] [address] [place] [address] Sherley Santana, CRYPTOLOGIC SUPPORT SPECIALIST [address] [phone] Results Social History Tobacco Use Types Packs/Day [...] * Telephone Encounter - Sherley Santana - 02/12/2011 1336 EDT Discussed normal EGD and colonoscopy biopsy results with mother. Rosario has a URI now and has respiratory symptoms, but has not had much abdominal pain or dysphagia. F/u scheduled in documented in this encounter Plan of Treatment Upcoming Encounters Date Type Department Care Team (Late st Contact Info) Description 04/24/2024 15:30 EST Telemedicine [facility] Pediatric Pulmonary - [facility] [address] [place], [place] [phone] Lucy Rodgers MD [address] [place] [phone] documented as of this encounter Visit Diagnoses Not on filedocumented in this encounter Care Teams Paper Deliverer Relationship Specialty Start Date End Date Trell Pittman MD [address] [place] [address] PCP - General 04/10/09 documented as of this encounter
--- OUTSIDE RECORDS SUMMARY | 2024-03-30 21:51 | XMS_ITS | Encounter Summary ---
Author Organization [facility] Address [address] [place] [address] Care Team Providers Care Transportation Mechanic Name Role Phone Trell Pittman MD Primary Care Provider [phone] [phone] Reason for Visit * Reason Onset Date Comments Other 05/01/2010 Encounter Details Date Type Department Care Team (Late st Contact Info) Description 05/01/[address] [address] Felix Spears MD [address] [place] [address], [address] [place] [address] Other Social History Tobacco Use Types Packs/Day Years Used Date Smoking Tobacco: Never Assessed Comments:Exposed to househol d smoke on occasion Comments Unknown Sex and Gender Information Value [...] Telephone Encounter - Belen Butcher LPN - 05/01/2010 1336 EST Patient mother called seen in ER ( . James)04/30/2010. Right ear with bloody drainage, wax, PET out. Prescribed Floxin drops per mom. Advised mother this is correct treatment. Pt given f/u appt with Dr. Spears , but mother will call if no improvement after three days. * Telephone Encounter - Lucy Chavez. - 05/01/2010 1324 EST Pt was seen in ER recently and is having problems with ear infections. One tube is out. Mom would like some advice on how to proceed. documented in this encounter Plan of Treatment Upcoming Encounters Date Type Department Care Team (Late st Contact Info) Description 04/24/2024 15:30 EST Telemedicine [facility] Pediatric Pulmonary - [facility] [address] [place], [place] [address] Lucy Rodgers MD [address] [place] [phone] documented as of this encounter Visit Diagnoses Not on filedocumented in this encounter Care Teams Transportation Mechanic Relationship Specialty Start Date End Date Trell Pittman MD [address] [place] [address] PCP - General 04/10/09 documented as of this encounter
--- OUTSIDE RECORDS SUMMARY | 2024-03-30 21:51 | XMS_ITS | Encounter Summary ---
Author Organization [facility] Address [address] [place] [address] Care Team Providers Care Implementation Project Coordinator Name Role Phone Trell Pittman MD Primary Care Provider [phone] [phone] Reason for Visit * Reason Onset Date Comments Prior Auth, Medication 08/25/2010 Prevacid 30 mg Capsules BID Encounter Details Date Type Department Care Team (Late st Contact Info) Description 08/25/2010 Telephone [facility] Pediatric Specialty Center - [facility] [place] [address] [place], [place] [phone] Sherley Santana, BLADE BENDER FURNACE TENDER [address] [phone] Prior Auth, Medication (Prevacid 30 mg Capsules BID) Social History Tobacco Use Types Packs/Day Years [...] * Telephone Encounter - Pj Lobato - 08/25/2010 1514 EDT At least 30 days * Telephone Encounter - Marga Calvillo RN - 08/25/2010 1453 EDT FOR HOW LONG? * Telephone Encounter - Pj Lobato - 08/25/2010 1411 EDT I called [employer] to get the BID dose approved and she needs to have tried once daily before theywill approve bid documented in this encounter Plan of Treatment Upcoming Encounters Date Type Department Care Team (Late st Contact Info) Description 04/24/2024 15:30 EST Telemedicine [facility] Pediatric Pulmonary - [address] [phone] Lucy Rodgers MD [address] [place] [phone] documented as of this encounter Visit Diagnoses Not on filedocumented in this encounter Care Teams Implementation Project Coordinator Relationship Specialty Start Date End Date Trell Pittman [place] [address] PCP - General 04/10/09 documented as of this encounter
--- OUTSIDE RECORDS SUMMARY | 2024-03-30 21:51 | XMS_ITS | Encounter Summary ---
Author Organization [facility] Address [address] [place] [address] Care Team Providers Care Protection Engineer Name Role Phone Trell Pittman MD Primary Care Provider [phone] [phone] Reason for Visit * Reason Comments Follow-up 6 wk f/u hearing los s Encounter Details Date Type Department Care Team (Late st Contact Info) Description 02/25/2010 11:15 EDT Office Visit [facility] ENT- Main [address] [address] Felix Spears MD [address] [facility], [address] [place] [address] Simple or unspecified chronic serous otitis media (Primary Dx) Social History Tobacco Use Types [...] documented in this encounter Progress Notes * JOB PLACEMENT COUNSELOR, SCAN 2 - 09/09/2011 0836 EDT * Felix Spears MD - 03/06/2010 1440 EDT DIVISION OF OTOLARYNGOLOGY PROGRESS/FOLLOWUP NOTE - 02/25/2010 CHIEF COMPLAINT: Recurrent otitis media, chronic serous otitis media. SUBJECTIVE: The patient has had no troubles since last visit. She has been in the hospital for her pulmonary issues with IV antibiotics with Dr Franklin. She seems to be doing better from that right now. Mom has no hearing concerns. Speech is excellent. No ear pain or drainage. OBJECTIVE: Healthy, alert, cooperative, well nourished female in no distress. Her voice and communication skills are normal for her age. Head and face inspection is normal. Palpation normal. Salivaryglands are normal today. Facial strength is normal today. External ear and nose all normal. Eyes are normal today. Otoscopy reveals ear canals are normal bilaterally. Eardrums are normal bilaterally.There is a tube in the left ear, which is functioning without infection or drainage. Right eardrum and middle ear space look clear today. Nose: Midline septum, normal turbinates without discharge. Lips, teeth and gums all within normal limits. Oral cavity, oropharynx is normal today. Palpation of the neck reveals no adenopathy. There are no jyoti. Thyroid is normal today. Audiogram by Jamar Kemp showed normal hearing. Tympanograms: High volume and flat on the left ear, normal on the right side. ASSESSMENT: Chronic pulmonary disease, recurrent otitis media, chronic serous otitis media with normal hearing. PLAN: Followup May or June or before if she is having troubles. Electronically Signed by Felix Spears MD 03/06/2010 14:40 Felix Spears MD - Felix Spears MD - MS Job ID: SM Doc ID: [id number] Ext Doc ID: [id number] cc: MD James Kumari MD * Felix Speras MD - 02/25/2010 1033 EDT This office note has been dictated. documented in this encounter Procedure Notes * Inpatient, Physician - 02/27/2010 1046 EDTAssociated Order(s): PROCEDURE REPORTS - SCANNED documented in this encounter Plan of Treatment Upcoming Encounters Date Type Department Care Team (Late st Contact Info) Description 04/24/2024 15:30 EST Telemedicine [facility] Pediatric Pulmonary - [facility] [address] [place] [address] Lucy Rodgers MD [address] [place] [phone] Scheduled Orders Name Type Priority Associated Diagnoses Orde r Schedule HEARING EVALUATION Audiology Routine Simple or unspecified chronic serous otitis media Ordered: 02/25/2010 documented as of this encounter Procedures Procedure Name Priority Date/Time Associated Diagnosis Comments PROCEDURE REPORTS - SCANNED 02/27/2010 10:46 EDT documented in this encounter Results * PROCEDURE REPORTS - SCANNED (02/27/2010 10:46 EDT) 02/27/2010 10:4 6 EDT Narrative Procedure Note Inpatient, Physician - 02/27/2010 10:46 EDT Physician Inpatient MD PROCEDURE/MINOR SURGICAL ORDERABLES Final Result documented in this encounter Visit Diagnoses Diagnosis Simple or unspecified chronic serous otitis media- Primary documented in this encounter Care Teams Protection Engineer Relationship Specialty Start Date End Date Trell Pittman MD [address] [place] [address] [place] [address] PCP - General 04/10/09 documented as of this encounter
--- OUTSIDE RECORDS SUMMARY | 2024-03-30 21:51 | XMS_ITS | Encounter Summary ---
Author Organization [facility] Address [address] [place] [address] Care Team Providers Care Cnc Mechanic Name Role Phone Trell Pittman MD Primary Care Provider [phone] [phone] Reason for Visit * Reason Onset Date Comments Pre-op Exam 01/27/2011 Medication Management 01/27/2011 Encounter Details Date Type Department Care Team (Late st Contact Info) Description 01/27/2011 Telephone [facility] Pediatric Pulmonary - Main [place] [address] [place] [address] James Franklin MD [address] [place] [address] Pre-op Exam; Medication Management Social History Tobacco Use Types Packs/Day [...] Refills Last Filled Start Date End Date lidocaine-prilocai ne (EMLA) creamIndications:G ERD (gastroesophageal reflux disease),Unspecifi ed constipation Apply topically. Prior to procedure 1 Tube 0 01/28/2011 2 polyethylene glycol (MIRALAX) 17 gram/dose powderIndications: GERD (gastroesophageal reflux disease),Unspecifi ed constipation Take 238 g by mouth once for 1 dose. Mix 14 capfuls in 64 ounces of gatorade and drink over 6 hours on Thursday 02/01 for colo prep 238 g 0 01/28/2011 1 documented in this encounter Miscellaneous Notes * Telephone Encounter - Marag Calvillo RN - 01/28/2011 1220 EDTAddended by: MARGA CALVILLO on: 01/28/2011 Modules accepted: Orders * Telephone Encounter - Marga Calvillo RN - 01/28/2011 1219 EDT spoke to Mom and I had told her yesterday that for GI she does not need a preop as we are the ordering and providing doctors She was concerned that they would not be able to do the prep on Wednesday but since the miralax takes a couple days to work we are hoping this will not affect their plans I told her she could eat normally on Wednesday and Wednesday but on Wednesday would need to take liquids I mailed a teaching sheet and left a detailed message and will call again to confirm the plan * Telephone Encounter - Vaishali García RN - 01/27/2011 1634 EDT Spoke with mom, she will get the pre op physical prior to the testing. * Telephone Encounter - Arin Avila - 01/27/2011 0906 EDT Rosario's mother, Lucy, is calling to ask whether Rosario needs to come in for a pre-op prior to procedures, is having bronchoscopy, endoscopy and colonoscopy scheduled for 02/04/2011. Please coordinate pulmo/GI. The patient's mother would like to hear today. Thank you documented in this encounter Plan of Treatment Upcoming Encounters Date Type Department Care Team (Late st Contact Info) Description 04/24/2024 15:30 EST Telemedicine [facility] Pediatric Pulmonary - [address] [phone] Lucy Rodgers MD [address] [place] [phone] documented as of this encounter Visit Diagnoses Diagnosis GERD (gastroesophageal reflux disease) Esophageal reflux Unspecified constipation documented in this encounter Care Teams Cnc Mechanic Relationship Specialty Start Date End Date Trell Pittman MD [address] [place] [address] PCP - General 04/10/09 documented as of this encounter
--- OUTSIDE RECORDS SUMMARY | 2024-03-30 21:51 | XMS_ITS | Encounter Summary ---
Author Organization [facility] Address [address] [place] [address] Care Team Providers Care Academic Advising Director Name Role Phone Trell Pittman MD Primary Care Provider [phone] [phone] Encounter Details Date Type Department Care Team (Late st Contact Info) Description 02/03/2010 Results Only [facility] - [address] [phone] James Franklin MD [address] [place] [phone] Social History Tobacco Use Types Packs/Day Years Used Date Smoking Tobacco: Never Assessed Comments:Exposed to househol d smoke on occasion Comments Unknown Sex and Gender Information Value Date Recorded Sex Assigned at Not on file Legal Sex Female 18:39 EST Gender Identity Not on file Sexual Orientation Not on file documented as of this encounter Plan of Treatment Upcoming Encounters Date Type Department Care Team (Late st Contact Info) Description 04/24/2024 15:30 EST Telemedicine [facility] Pediatric Pulmonary - [address] [phone] Lucy Rodgers MD [address] [place] [phone] documented as of this encounter Visit Diagnoses Not on filedocumented in this encounter Care Teams Academic Advising Director Relationship Specialty Start Date End Date Trell Pittman MD [address] [place] [address] PCP - General 04/10/09 documented as of this encounter
--- OUTSIDE RECORDS SUMMARY | 2024-03-30 21:51 | XMS_ITS | Encounter Summary ---
Author Organization [facility] Address [address] [place] [address] Care Team Providers Care Garment Alteration Examiner Name Role Phone Trell Pittman MD Primary Care Provider [phone] [phone] Encounter Details Date Type Department Care Team (Late st Contact Info) Description 09/03/2009 Results Only [facility] - [address] [phone] Albin Child MD [address] [place] [phone] Social History Tobacco Use Types Packs/Day [...] Info) Description 04/24/2024 15:30 EST Telemedicine [facility] Pediatric Pulmonary - [address] [id number] Lucy Rodgers MD [address] [place] [phone] documented as of this encounter Procedures Procedure Name Priority Date/Time Associated Diagnosis Comments ELECTRON MICROSCOPY Routine 09/03/2009 9 :42 EDT SURGICAL PATHOLOGY Routine 09/03/2009 0: 00 EDT documented in this encounter Results * ELECTRON MICROSCOPY (09/03/2009 9:42 EDT) Accession number [id number] FARSHAD DOMINGUEZ Referring Pathologist/Ph ysician (Note) ? Albin Child M.D. ? FARSHAD DOMINGUEZ Referring Path/Phys Address (Note) [facility] ? [address] ? [place], [place] [address] ? [phone] ? FARSHAD DOMINGUEZ Specimen (Note) A:Consult Material ? FARSHAD DOMINGUEZ Material (Note) nasal brush - 1 wet tissue ([id number]) ? SLIDE DISPOSITION: ? FARSHAD DOMINGUEZ Diagnosis Code (Note) [id number], nasal brushing: Interpretation: Non-representativ e ? biopsy. ??Semi-thin sections demonstrate insufficient numbers of ? ciliated cells to permit evaluation. ??Should additional specimens ? become available for review, we would be willing to reassess the ? case. ? FARSHAD DOMINGUEZ Signing Pathologist 09/27/2009 09:57 Interpreted by: Jyoti Wang M.D.(Note) Report electronically signed by Jyoti Wang M.D. ? Transcribed by: marily 09/26/2009 14:49:31 ? Performed or Referred by: [facility] Dpt of Lab Med and Path, [address] , [place] [address], Lab Dir: Oleg Young III, ? MD ? FARSHAD DOMINGUEZ 09/03/2009 9:42 EDT 09/03/2009 15:08 EDT us Albin Child MD CHEMISTRY & BLOOD GAS ORDERABLE S Final Result Performing Organization Address City/State/[facility] Co de Phone Number [facility] [address] [place] [address] * SURGICAL PATHOLOGY (09/03/2009 0:00 EDT) Pathology Report: SURGICAL PATHOLOGY REPORT ? Reports generated via electronic interface contain original data; ? however they are lacking the format of the original report. ? Caution should be taken when reading/interpreti ng unformatted reports. ? Name: ? ROSARIO HART ? Accession #: ? [id number] ? : ? 2005 (Age: 3) ??F ?Collect Date: ? 09/03/2009 ? Location: ? [facility] ? Receive Date: ? 09/03/2009 ? Provider: ALBIN CHILD MD ? Copy to: ? SEND OUT TEST SUMMARY REPORT ? Date Ordered: ? 09/03/2009 ? Status: ?? Signed Out ?Date Complete: ? 10/22/2009 ? By: ??Stephanie J. Kilgore ? Date Reported: ? 10/22/2009 ? Interpretation ? [facility] interpretation: ? [id number], nasal brushing: ??Interpretation: ??Non-representati ve biopsy. ? Semi-thin sections demonstrate insufficient numbers of ciliated cells to permit evaluation. ??Should additional specimens become available for review, we would ?? be willing to reassess the case. ??This was interpreted at the [facility], by Lorraine Wang MD, on September 27, 2009. ??(Dr. Desir)/alfredo ? Description ? Received: ? Nasal brush for EM ? Clinical History: ? Chronic sinusitis, recurrent respiratory infection; R/O primary ciliary ? dyskinesia ? Gross description: ? Received in Karnovsky's solution labelled Rosario Hart is a brush ? biopsy with a 0.3 x 0.3 x 0.2 cm fragment of pink-juan tissue. ??The specimen is ?? sent to [facility] for electron microscopy. ??(Jailyn Leiws)/eliana ? Document reviewed and electronically signed by: ? Caren Desir MD ? Report date: 10/22/2009 ? By the signature above, the attending physician certifies that he/she has ? personally conducted a gross and/or microscopic examination of the described ? specimens and rendered or confirmed the above diagnosis. ? End of Report ? [facility] 09/03/2009 09/03/2009 10: 54 EDT us Albin Child MD PATHOLOGY ORDERABLES Final Resu lt [facility] [address] [place] [address] documented in this encounter Visit Diagnoses Not on filedocumented in this encounter Care Teams Garment Alteration Examiner Relationship Specialty Start Date End Date Trell Pittman MD [address] [place] [address] PCP - General 04/10/09 documented as of this encounter
--- OUTSIDE RECORDS SUMMARY | 2024-03-30 21:51 | XMS_ITS | Encounter Summary ---
Author Organization [facility] Address [address] [place] [address] Care Team Providers Care Copyright Manager Name Role Phone Trell Sanon MD Primary Care Provider [phone] [phone] Reason for Visit * Reason Comments Constipation Abdominal Pain Encounter Details Date Type Department Care Team (Late st Contact Info) Description 08/22/2010 12:00 EDT Office Visit [facility] - [facility] [address] [place] [address] Sherley Santana, AIR PURIFIER SERVICER [address] [phone] GERD (gastroesophageal reflux disease); Constipation, chronic Social [...] Sign Reading Time Taken Comments Blood Pressure 96/51 08/22/2010 1255 EDT Pulse - - Temperature - - Respiratory Rate - - Oxygen Saturation - - Inhaled Oxygen Concentration - - Weight 19.8 kg (43 lb 10.4 oz) 08/22/2010 1255 E DT Height 119.8 cm (3' 11.15) 08/22/2010 1255 EDT Pysazg-eqe-Axgjnx Percentile 8.26% 08/22/2010 1 255 EDT Growth Chart: [facility] (Girls, 2- 20 Years) Body Mass Index 13.81 08/22/2010 1255 EDT Body Mass Index Percentile 11.02% 08/22/2010 125 5 EDT Growth Chart: [facility] (Girls, 2- 20 Years) documented in this encounter Mental Status * Because of a physical, mental, or emotional condition, do you have serious difficulty concentrating, remembering, or making decisions? (5 years old or older) Answer Entry Date Author Yes 02/13/2010 0:00 EDT Mohit Yusuf RN documented in this encounter Patient Instructions * Patient Instructions* Sherley Santana - 08/22/2010 13:49 EDT Miralax 3 teaspoons mixed in 6 ounces twice daily. Benefiber 2 teaspoons mixed with miralax twice daily. Prevacid 30 mg twice daily. Call me with an update in 4 weeks. If she is not improving, will consider an endoscopy and blood work. Please call with any questions or concerns ( [phone]). CANDIDO Chiang works Wednesday, Wednesday, , and Wednesday mornings. documented in this encounter Ordered Prescriptions Prescription Sig Dispense Quantity Refills Last Filled Start Date End Date lansoprazole (PREVACID) 30 mg capsule Take 1 Cap by mouth 2 times daily for 30 days. 60 Cap 3 08/22/2010 08/27/2010 documented in this encounter Progress Notes * Sherley Santana - 08/22/2010 1316 EDT Rosario Ace is being evaluated in the pediatric GI and nutrition clinc by CANDIDO Chiang at the request of TRELL SANON MD for Chief Complaint Patient presents with ??? Constipation ??? Abdominal Pain . History obtained from mother. HPI: Abdominal Pain: Rosario has periumbilical abdominal pain 3-6 days weekly. This has been occuring for the last 2 years. The abdominal pain has gotten slightly worse over the last year. Alleviating factors: none. Aggravating factors: none. Initiating factors: none. The pain is worse after eating. There is not any association with exercise. The pain wakes her at night rarely and it happens more often when she has increased stress. She previously took Prevacid 15 mg twice daily and her pain improved, but did not resolve. Bowel movements: She has a bowel movement twice weekly. Stools are hard and large. There is rectal discomfort and straining when she passes a stool. There has not been any blood in her stools. She has more abdominal pain if she has not had a bowel movement in a few days. Growth and Nutrition: She eats well. She has not had any weight loss. She avoids milk in her diet because an allergy testwas inconclusive. She vomits and has rhinorhea and eczema when she eats dairy products. Heartburn: She rarely has chest pain. Nausea and Vomiting: She complains of a bad taste in her mouth twice weekly and occasionally has regurgitation. This occurs more often after eating tomato sauce. She has more abdominal pain when she has regurgitaiton. She vomits once monthly. There is not any blood in her vomit. She did not vomit when she took Prevacid. Activity/Energy: She active. Testing: She has had testing for celiac and cystic fibrosis in the past which was negative. Treatment: Prevacid 15 mg twice daily. She has not taken any Prevacid in the last 6 months. She has not had any mouth sores, unexplained fever, or joint pain. Patient Active Problem List Diagnoses Code ??? Bronchiectasis with Acute Exacerbation 494.1 ??? Chronic Otitis Media 382.9G ??? Simple or Unspecified Chronic Serous Otitis Media 381.10 ??? 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 Primary ciliary dyskinesia 759.3D ??? Asthma 493.90AE ??? GERD (gastroesophageal reflux disease) 530.81S ??? Constipation, chronic 564.00AE Current outpatient prescriptions Medication Sig Dispense Refill ??? ciprofloxacin-dexamethasone (CIPRODEX) otic suspension Place 4 Drops in ear(s) 2 times daily. ??? levalbuterol (XOPENEX HFA) 45 mcg/Actuation inhaler Inhale 2 Puffs as directed every 4 hours asneeded. ??? fluticasone (FLOVENT) 110 mcg/Actuation inhaler Inhale 2 Puffs as directed 2 times daily. ??? Sodium Chloride (HYPER-ROSA) 7 % Nebu Inhale 4 mL as directed daily. ??? KETOTIFEN FUMARATE (ALAWAY OPHT) Apply to eye. ??? azithromycin (ZITHROMAX) 200 mg/5 mL suspension [...] ??? Adhesive Tape Other (See Comments) blisters Past Medical History Diagnosis Date ??? OM (otitis media) ??? Asthma Always rattley per mom ??? Esophageal reflux ??? Unspecified sinusitis (chronic) ??? Allergic conjunctivitis Past Surgical History Procedure Date ??? Pyloromyotomy 3 sets of PE tubes ??? Pr bronchoscopy,diagnostic w lavage 02/11/2010 ??? Pr create eardrum opening,gen anesth ??? Adenoidectomy ??? Tympanostomy tube placement Family History Problem Relation Age of Onset ??? Allergies Mother environment, amoxicillin ??? Food Intolerance Mother lactose intolerant ??? Constipation Mother ??? Diarrhea Mother ??? Migraines Mother ??? Allergies Father environment ??? Food Intolerance Brother lactose ??? * Paternal Grandfather diverticulitis ??? Diarrhea Maternal Grandmother ??? High Cholesterol Maternal Grandmother ??? Celiac Disease Other REVIEW OF SYMPTOMS: A 10 point Review of Systems was completed. Pertinent positives are noted in the HPI/Subjective. OBJECTIVE: BP 96/51 Ht 119.8 cm (47.15) Wt 19.8 kg (43 lb 10.4 oz) BMI 13.81 kg/m2 Body mass index is 13.81 kg/(m^2). 10.82% of growth percentile based on BMI-for-age. General appearance: alert, no distress Head: Normocephalic, without obvious abnormality, atraumatic Eyes: negative findings: lids and lashes normal, conjunctivae and sclerae normal and pupils equal, round, reactive to light and accomodation Ears: normal TM's and external ear canals AU Nose: Nares normal. Septum midline. Mucosa normal. No drainage or sinus tenderness. Throat/Mouth: normal findings: lips normal without lesions and oropharynx pink & moist without lesions or evidence of thrush Neck: supple, symmetrical, trachea midline Lungs: clear to auscultation bilaterally Heart: regular rate and rhythm Abdomen: soft, non-tender; bowel sounds normal; no masses, no organomegaly Extremities: extremities warm, atraumatic, no cyanosis or edema Rectal: deferred Rosario Todd Ace is a 4 year old female with ciliary dyskinesia with constipation and a 2 year history of abdominal pain and constipation. Her constipation is likely related to ciliary dyskinesia. It is less likely she has hypothyroidism or Hirschsprung's disease. Her abdominal pain is likely related to a gastric acid disorder and her constipation. It is less likely she has an infection or inflammatory bowel disease. Also included in the differential diagnosis is functional abdominal pain. . PLAN: Miralax 3 teaspoons mixed in 6 ounces twice daily. Benefiber 2 teaspoons mixed with miralax twice daily. Prevacid 30 mg twice daily. Phone follow up in 4 weeks. If she is not improving, will consider an endoscopy and blood work. Patient Education: Method: verbal Taught to family No barriers Family verbalized understanding. Visit questionnaire and EMR was reviewed. documented in this encounter Plan of Treatment Upcoming Encounters Date Type Department Care Team (Late st Contact Info) Description 04/24/2024 15:30 EST Telemedicine [facility] Pediatric Pulmonary - Main [place] [address] [place], [place] [phone] Lucy Rodgers MD [address] [place] [phone] documented as of this encounter Visit Diagnoses Diagnosis GERD (gastroesophageal reflux disease) Esophageal reflux Constipation, chronic Unspecified constipation documented in this encounter Discontinued Medications Medication Sig Discontinue Reason Start Date End Da te acetaminophen (TYLENOL) 160 mg/5 mL solution Take 5.5 mL by mouth every 4 hours as needed for Pain for 4 doses. Therapy completed 04/10/2009 08/22/2010 documented as of this encounter Historical Medications * This list may reflect changes made after this encounter. ciprofloxacin-dex amethasone (CIPRODEX) otic suspension Place 4 Drops in ear(s) 2 times daily. 12/22/2010 added in this encounter Care Teams Copyright Manager Relationship Specialty Start Date End Date Trell Sanon MD [address] [place], [place] [address] [address] PCP - General 04/10/09 documented as of this encounter
--- OUTSIDE RECORDS SUMMARY | 2024-03-30 21:51 | XMS_ITS | Encounter Summary ---
Author Organization [facility] Address [address] [place] [address] Care Team Providers Care Coal Carrier Name Role Phone Trell Pittman MD Primary Care Provider [phone] [phone] Reason for Visit * Reason Onset Date Comments Appointment Related 09/08/2010 Encounter Details Date Type Department Care Team (Late st Contact Info) Description 09/08/2010 Telephone [facility]ty Center - [facility] [address] [place] [address] Sherley Santana, LENDING MANAGER [address] [phone] Appointment Related Social History Tobacco Use Types [...] * Telephone Encounter - Sherley Santana - 09/10/2010 0346 EDT Rosario is doing much better. She rarely complains of abdominal pain. She occasionally has a wet burp, but no further vomiting. She has a bowel movement 4 times weekly which are larger and softer than previously. Will increase the miralax to 3 1/2 tsp bid and benefiber to 2 1/2 tsp bid. F/u in 1-2 months. * Telephone Encounter - Iliana Chang - 09/08/2010 1538 EDT Mother states child is a little better. She wonders if there should be a follow up appointment. documented in this encounter Plan of Treatment Upcoming Encounters Date Type Department Care Team (Late st Contact Info) Description 04/24/2024 15:30 EST Telemedicine [facility] Pediatric Pulmonary - [facility] [address], [place] [phone] Lucy Rodgers MD [address] [place] [phone] documented as of this encounter Visit Diagnoses Not on filedocumented in this encounter Care Teams Coal Carrier Relationship Specialty Start Date End Date Trell Pittman MD [address] [place] [address] PCP - General 04/10/09 documented as of this encounter
--- OUTSIDE RECORDS SUMMARY | 2024-03-30 21:51 | XMS_ITS | Encounter Summary ---
Author Organization [facility] Address [address] [place] [address] Care Team Providers Care Life Skills Coordinator Name Role Phone Trell Pittman MD Primary Care Provider [phone] Reason for Visit * Reason Onset Date Comments Appointment Related 02/02/2011 SCOPE APPOIN TMENT FOR WEDNESDAY Encounter Details Date Type Department Care Team (Late st Contact Info) Description 02/02/2011 Telephone [facility]ty [facility] - Main [place] [address] [place] [address] Sherley Santana, CHEMIST HELPER [address] [phone] Appointment Related (SCOPE APPOINTMENT FOR WEDNESDAY) Social History Tobacco Use Types Packs/Day Years [...] encounter Miscellaneous Notes * Telephone Encounter - Marga Calvillo RN - 02/03/2011 1225 EDT Dinorah spoke to Mom and clarified everything * Telephone Encounter - Michelle Hay - 02/02/2011 1644 EDT MOTHER WANTS TO CONFIRM THAT THE SCOPES WILL BE DONE ON Wednesday SO SHE KNOWS WHEN TO START PREP documented in this encounter Plan of Treatment Upcoming Encounters Date Type Department Care Team (Late st Contact Info) Description 04/24/2024 15:30 EST Telemedicine [facility] Pediatric Pulmonary - [address] [phone] Lucy Rodgers MD [address] [place] [phone] documented as of this encounter Visit Diagnoses Not on filedocumented in this encounter Care Teams Life Skills Coordinator Relationship Specialty Start Date End Date Trell Pittman MD [address] [place] [address] PCP - General 04/10/09 documented as of this encounter
--- OUTSIDE RECORDS SUMMARY | 2024-03-30 21:51 | XMS_ITS | Encounter Summary ---
Author Organization [facility] Address [address] [place] [address] Care Team Providers Care Mortar Mixer Name Role Phone Trell Pittman MD Primary Care Provider [phone] Reason for Visit * Reason Onset Date Comments Ear Drainage 07/14/2010 Encounter Details Date Type Department Care Team (Late st Contact Info) Description 07/14/2010 Telephone [facility] ENT- Main [place] [address] [place] [address] Belen Butcher LPN Ear Drainage Social History Tobacco Use Types Packs/Day Years Used Date Smoking Tobacco: Never Comments:Exposed to househol d smoke on occasion [...] Telephone Encounter - Belen Butcher LPN - 07/16/2010 1511 EST Mother reports it is difficult to bring child in due to distance and mother work in a day care center. Mother reports H202 Resolved bloody ear drainage. Patient without any ear drainage and without c/o ear pain. Patient to keep scheduled f/u appt on 07/29/2010, Mother to call office if child develops bloody ear drainage or if child develops ear drainage and mother cannot get Ciprodex drops to go in. Mother verbalized understanding of care plans. * Telephone Encounter - Belen Butcher LPN - 07/14/2010 0938 EST Mother reports bloody drainage from left ear, patient had PETS on 07/11/2010. Mother advised to use one dropper full of H202. Once a day to left ear. Patient should be seen 07/15/2010. Mother should also continue on Ciprodex drops as directed . Mother verbalized understanding and will arrange a ride and call When she can bring child In. documented in this encounter Plan of Treatment Upcoming Encounters Date Type Department Care Team (Late st Contact Info) Description 04/24/2024 15:30 EST Telemedicine [facility] Pediatric Pulmonary - [facility] [address] [place], [place] [phone] Lucy Rodgers MD [address] [place] [phone] documented as of this encounter Visit Diagnoses Not on filedocumented in this encounter Care Teams Mortar Mixer Relationship Specialty Start Date End Date Trell Pittman MD [address] [place] [address] PCP - General 04/10/09 documented as of this encounter
--- OUTSIDE RECORDS SUMMARY | 2024-03-30 21:51 | XMS_ITS | Encounter Summary ---
Author Organization [facility] Address [address] [place] [address] Care Team Providers Care Sewer Pipe Layer Name Role Phone Trell Pittman MD Primary Care Provider [phone] Reason for Visit * Reason Comments Follow-up Encounter Details Date Type Department Care Team (Late st Contact Info) Description 05/15/2010 14:05 EST Office Visit [facility] ENT- [address] [phone] Felix Spears MD [address] [place] [address], [address] [place] [phone] Unspecified chronic suppurative otitis media (Primary Dx) Social History Tobacco [...] Progress Notes * Felix Spears MD - 05/19/2010 1519 EST DIVISION OF OTOLARYNGOLOGY PROGRESS/FOLLOWUP NOTE - 05/15/2010 CHIEF COMPLAINT: Recurrent otitis media, chronic serous otitis media. SUBJECTIVE: The patient has had 2 ear infections over the past month or so. They have been lasting 2 to 3 days a piece and were untggjzh-my-jghaep in nature. She has had associated upper respiratory infections with both ones, doing pretty well otherwise. OBJECTIVE: Healthy, alert, cooperative female, well nourished, in no distress. Voice is normal today. Head and face inspection and palpation are both normal. Salivary glands are normal today. Facial strength is normal today. External ear, nose all normal today. Eyes are normal. Otoscopy: Ear canalsare normal bilaterally. There is fluid in the right middle ear space, looks like the left tube is still functioning. The nose, midline septum, congested turbinates and a purulent rhinitis. Lips, teeth and gums all within normal limits. Oral cavity, oropharynx is normal today. Palpation of the neck reveals no adenopathy or masses. Thyroid is normal today. Audiogram by Han Aleman reveals a mild hearing loss on the right side and high volume flat tympanogram on the left side with normal hearing on the left side. ASSESSMENT: Recurrent otitis media in the right ear. PLAN: Ventilating tube reinsertion bilaterally. Consent was obtained. Will have Dr Trell Pittman do her history and physical. Electronically Signed by Felix Spears MD 05/19/2010 15:19 Felix Spears MD - Felix Spears MD - [place] Job ID: Doc ID: [id number] Ext Doc ID: [id number] cc: Trell Pittman MD * Felix Spears MD - 05/15/2010 1534 EST This office note has been dictated. documented in this encounter Procedure Notes * Inpatient, Physician - 06/03/2010 1130 ESTAssociated Order(s): PROCEDURE REPORTS - SCANNED documented in this encounter Plan of Treatment Upcoming Encounters Date Type Department Care Team (Late st Contact Info) Description 04/24/2024 15:30 EST Telemedicine [facility] Pediatric Pulmonary - Main [place] [address] [place], [place] [phone] Lucy Rodgers MD [address] [place] [phone] Scheduled Orders Name Type Priority Associated Diagnoses Orde r Schedule HEARING EVALUATION Audiology Routine Unspecified chronic suppurative otitis media Ordered: 05/15/2010 documented as of this encounter Procedures Procedure Name Priority Date/Time Associated Diagnosis Comments PROCEDURE REPORTS - SCANNED 06/03/2010 11:30 EST documented in this encounter Results * PROCEDURE REPORTS - SCANNED (06/03/2010 11:30 EST) 06/03/2010 11:3 0 EST Narrative Procedure Note Inpatient, Physician - 06/03/2010 11:30 EST Physician Inpatient MD PROCEDURE/MINOR SURGICAL ORDERABLES Final Result documented in this encounter Visit Diagnoses Diagnosis Unspecified chronic suppurative otitis media- Primary documented in this encounter Discontinued Medications Medication Sig Discontinue Reason Start Date End Da te sodium chloride 7 % Take 4 mL by nebulization 2 times daily. 02/13/2010 05/15/2010 sodium chloride sinus rinse Pack by Nasal route daily. Use in each nostril daily 02/13/2010 05/15/2010 documented as of this encounter Historical Medications * This list may reflect changes made after this encounter. AMOX TR/POTASSIUM CLAVULANATE (AUGMENTIN ORAL) Take by mouth. 07/29/2010 KETOTIFEN FUMARATE (ALAWAY OPHT) Apply to eye. 09/17/2010 added in this encounter Care Teams Sewer Pipe Layer Relationship Specialty Start Date End [place] [address] PCP - General 04/10/09 documented as of this encounter
--- OUTSIDE RECORDS SUMMARY | 2024-03-30 21:51 | XMS_ITS | Encounter Summary ---
Author Organization [facility] Address [address] [place] [address] Care Team Providers Care Clinical Trials Data Coordinator Name Role Phone Trell Pittman MD Primary Care Provider [phone] Reason for Visit * Reason Onset Date Comments Medication Problem 12/30/2010 Encounter Details Date Type Department Care Team (Late st Contact Info) Description 12/30/2010 Refill [facility] Pediatric Pulmonary [facility] [address] [place] [address] James Franklin MD [address] [place] [address] Medication Problem Social History Tobacco [...] Telephone Encounter - Vaishali García RN - 12/30/2010 1633 EDT Refill [facility] the [facility] with mom about that, or if she would like usto change it to barre? * Telephone Encounter - Arin Avila - 12/30/2010 6085 EDT Rosario's mother is calling from [facility] in [place], they have not received Dr. Franklin's order for Advair and Aerochamber. Checked in [facility], ordered via e- script, normal order should be on their log. Mother asking that we fax or do verbal on this. documented in this encounter Plan of Treatment Upcoming Encounters Date Type Department Care Team (Late st Contact Info) Description 04/24/2024 15:30 EST Telemedicine [facility] Pediatric Pulmonary - [address] [id number] Lucy Rodgers MD [address] [place] [phone] documented as of this encounter Visit Diagnoses Not on filedocumented in this encounter Care Teams Clinical Trials Data Coordinator Relationship Specialty Start Date End Date Trell Pittman MD [address] [place] [address] PCP - General 04/10/09 documented as of this encounter
--- OUTSIDE RECORDS SUMMARY | 2024-03-30 21:51 | XMS_ITS | Encounter Summary ---
Author Organization [facility] Address [address] [place] [address] Care Team Providers Care Golf Club Assembler Name Role Phone Trell Pittman MD Primary Care Provider [phone] Encounter Details Date Type Department Care Team (Late st Contact Info) Description 07/11/2010 8:17 EST - 07/11/2010 11:05 EST Hospital Encounter [facility] Perioperative Services- [address] [address] Felix Spears MD [address] [place] [address], [address] [place] [address] Discharge Disposition: Home or Self [...] Taken Comments Blood Pressure - - Pulse 75 07/11/2010 1026 EST Temperature 36 ??C (96.8 ??F) 07/11/2010 1045 EST Respiratory Rate 22 07/11/2010 1100 EST Oxygen Saturation 100% 07/11/2010 1100 EST Inhaled Oxygen Concentration - - Weight 19.6 kg (43 lb 3.4 oz) 07/11/2010 0928 ES T Height 118.1 cm (3' 10.5) 07/04/2010 1321 EST Body Mass Index 14.05 07/04/2010 1321 EST Body Mass Index Percentile 16.47% 07/11/2010 092 8 EST Growth Chart: [facility] (Girls, 2- 20 Years) documented in this encounter Mental Status * Because of a physical, mental, or emotional condition, do you have serious difficulty concentrating, remembering, or making decisions? (5 years old or older) Answer Entry Date Author Yes 02/13/2010 0:00 EDT Mohit Yusuf RN documented in this encounter Discharge Instructions * Discharge Instructions* Luzmaria Foreman MD - 07/11/2010 8:49 EST Pressure Equalization Tube Post-Operative Instructions The Surgery: When the tube is placed in the eardrum, any fluid or debris in the middle ear space isremoved. An immediate improvement in hearing is noticed in most cases. Occasionally, particularly in children, this improvement is such that the child may become frightened of what may seem to be normal sounds. This will go away as the child becomes more accustomed to hearing normal sound volumes. If the fluid in the middle ear is infected, or if it is particularly thick, ear drops will have to be placed in the operating room. If this is the case, you will receive a prescription for drops to use at home. Postoperative Care: Even if you were not instructed to use drops post- operatively, you will receivea prescription for Ciprodex drops. You should fill this prescription and have it on hand. If your child develops drainage from his ears in the future, this means that his ears are infected and you will use these drops. Ear Infections: Many children continue to pull at their ears after surgery. This does not necessarily mean infection. Infection will manifest as drainage from the ear. This may occur at any time after surgery in approximately 10-15% of patients. This drainage may be clear, green/yellow, reddish, orbloody. Once this drainage is seen, start the Ciprodex. If drainage continues 3 or 4 days after starting the drops, call the office for an appointment. Your child may need to have excess drainage suctioned from the ear canal. Oral antibiotics are generally not needed once tubes are in place. Water Precautions: No ear protection is needed unless the patient has pain or recurring infections after water exposure. Various earplugs are available through the office if needed. Nausea/Vomiting: The general anesthetic may cause some fatigue, lightheadedness, and nausea for several hours. If vomiting continues beyond 6 hours, then notify the office. Diet: Your child may resume his regular diet after surgery. Follow Up: Your child will need to be seen 1-2 weeks after surgery and then every six months after that. Most tubes stay in place 6 mos-1 year. Most children will outgrow their need for tubes in thattime period; however, approximately 20% may need a second set of tubes. An adenoidectomy in addition to the pressure equalization tube placement may be considered at that time. To schedule an appointment or reach the clinic, please call [phone]. If you need to reach the office due to a post surgical urgent issue, please call [phone]. documented in this encounter Medications at Time of Discharge acetaminophen (TYLENOL) 160 mg/5 mL solution Take 5.5 mL by mouth every 4 hours as needed for Pain for 4 doses. 30 mL 0 04/10/2009 1 AMOX TR/POTASSIUM CLAVULANATE (AUGMENTIN ORAL) Take by mouth. 07/15 1 azithromycin (ZITHROMAX) 200 mg/5 mL suspension Take 5 mL by mouth three times a week. Take 1 tsp by mouth (5ml) three times per week (M,W, F) 60 mL 2 02/14/2010 3 ciprofloxacin-dex amethasone (CIPRODEX) otic suspension Place 4 Drops in ear(s) 2 times daily as needed for Other (discharge). 1 Bottle 11 07/11/2010 1 fluticasone (FLOVENT) 110 mcg/Actuation inhaler Inhale 2 Puffs as directed 2 times daily. 05/23/2010 1 KETOTIFEN FUMARATE (ALAWAY OPHT) Apply to eye. 1 lactobacillus acidophilus & bulgar (LACTINEX) 1 million cell Chew Take 1 Tab by mouth 3 times daily with meals. 50 Tab 0 02/14/2010 1 levalbuterol (XOPENEX HFA) 45 mcg/Actuation inhaler Inhale 2 Puffs as directed every 4 hours as needed. 1 Multivitamins with Minerals Tab Take 1 Tab by mouth three times a week. 6 POLYETHYLENE GLYCOL 3350 (MIRALAX ORAL) Take 1 Cap by mouth daily. Varies 1-1/2 caps per day 07/29/2010 2 Sodium Chloride (HYPER-ROSA) 7 % Nebu Inhale 4 mL as directed daily. 07/29/2010 1 documented as of this encounter Ordered Prescriptions Prescription Sig Dispense Quantity Refills Last Filled Start Date End Date ciprofloxacin-dexa methasone (CIPRODEX) otic suspension Place 4 Drops in ear(s) 2 times daily as needed for Other (discharge). 1 Bottle 11 07/11/2010 07/29/2010 documented in this encounter Discharge Disposition Disposition Code Departure Means Destination Home or Self Care documented in this encounter Progress Notes * Alyssa Haas, RAÚL - 07/11/2010 1030 EST 1026 Admit to PACU, asleep. 1045 Awake, tolerating popsicle, no complaints of ear pain. Ready for discharge. * Cici Guaman - 07/11/2010 0935 EST Rosario and her family are familiar with child life services from prior hospital visits through [facility] and [facility]. Child life checked in with Rosario and her parents in preOp. She reports having ear tubes in the past. Age appropriate education was reiterated about ear tubes and anesthesia. Child life will be available upon request if future needs arise. DIANE Charles Certified Retail Sales Consultant Pager: [phone] documented in this encounter H&P Notes * Inpatient, Physician - 07/11/2010 0000 EST * Inpatient, Physician - 07/11/2010 0000 EST documented in this encounter Nursing Notes * Inpatient, Physician - 07/11/2010 0000 EST documented in this encounter OR Notes * OR Surgeon - Felix Spears MD - 07/11/2010 0848 EST PROCEDURE REPORT PT TYPE: OPPROC SERVICE DATE: 07/11/2010 SURGEON: Felix Spears MD [employer] COOK: Luzmaria Foreman MD PREOPERATIVE DIAGNOSIS Recurrent otitis media, chronic serous otitis media POSTOPERATIVE DIAGNOSIS Recurrent otitis media, chronic serous otitis media PROCEDURE Bilateral pressure equalization tube placements. ANESTHESIA General. FINDINGS Bilateral serous otitis media. NARRATIVE After induction of adequate general mask anesthesia, the patient's ears were examined under the operating microscope and an appropriate sized speculum. Cerumen was debrided from each ear bilaterally.Tympanic membrane was visualized and an anterior midposition myringotomy was made bilaterally. The middle ear space was suctioned and a PE tube was placed bilaterally. After assuring that there was no bleeding at the myringotomy sites, the patient was awakened by anesthesia and returned to the recovery room in stable condition. There were no complications to the case. Dr Spears didt the entire procedure. Unless otherwise noted, there were no complications, no blood loss, cultures obtained, specimens removed, or drains retained. ESTIMATED BLOOD LOSS None. FLUIDS None. URINE OUTPUT Not recorded. SPECIMENS None. CULTURES None. DRAINS/PACKS/FOREIGN MATERIALS Two Maru T-type pressure equalization tubes. COMPLICATIONS None. CONDITION Good to PACU. * Anesthesia Procedure Notes - Inpatient, Physician - 07/11/2010 0000 EST * Anesthesia Preprocedure Evaluation - Inpatient, Physician - 07/11/2010 0000 EST * Anesthesia Preprocedure Evaluation - Inpatient, Physician - 07/11/2010 0000 EST * OR PreOp - Inpatient, Physician - 07/11/2010 0000 EST * OR PreOp - Inpatient, Physician - 07/11/2010 0000 EST * OR PreOp - Inpatient, Physician - 07/11/2010 0000 EST documented in this encounter Miscellaneous Notes * Anesthesia Post-Eval - Ebony Ruth CRNA - 07/11/2010 1101 EST Post Anesthesia Evaluation Date of Service: 07/11/2010 The patient has been evaluated, assessed and discharged from anesthesia care with stable cardiorespiratory function and acceptable mental status, pain management, body temperature, fluid balance, nausea/vomiting control and Terrance score. Additional monitoring and assessment needs have been addressed. If present, postoperative events are documented below. EBONY RUTH CRNA 07/11/2010 11:01 * Scanned Note-Null - Inpatient, Physician - 07/11/2010 0000 EST * Scanned Note-Null - Inpatient, Physician - 07/11/2010 0000 EST * Scanned Note-Null - Inpatient, Physician - 07/11/2010 0000 EST documented in this encounter Plan of Treatment Upcoming Encounters Date Type Department Care Team (Late st Contact Info) Description 04/24/2024 15:30 EST Telemedicine [facility] Pediatric Pulmonary [address] [address] Lucy Rodgers MD [address] [place] [address] documented as of this encounter Visit Diagnoses Not on filedocumented in this encounter Active and Recently Administered Medications Orders Medications Ordered That Janes ht Not Have Been Administered Count Last Ordered Date First Ordered Date acetaminophen (TYLENOL) solu tion 195-295 mg 1 07/11/2010 ibuprofen (ADVIL;MOTRIN) suspension 196 mg 1 07/11/2010 lactated ringers (LR) infusion 1 07/11/2010 Admission Count Last Ordered Date First Orde red Date NOTIFY PPS PATIENT ARRIVAL IN PACU 1 2010 NOTIFY PPS PATIENT DISCHARGED FROM PACU 1 0 07/11/2010 Discharge Count Last Ordered Date First Orde red Date DISCHARGE PATIENT 1 07/11/2010 documented in this encounter Care Teams Golf Club Assembler Relationship Specialty Start Date End Date Trell Pittman [place] [address] PCP - General 04/10/09 documented as of this encounter
--- OUTSIDE RECORDS SUMMARY | 2024-03-30 21:51 | XMS_ITS | Encounter Summary ---
Author Organization [facility] Address [address] [place] [address] Care Team Providers Care Strap Stitcher Name Role Phone Trell Sanon MD Primary Care Provider [phone] [phone] Reason for Visit * Reason Comments Other primary ciliary dysk inesia Encounter Details Date Type Department Care Team (Late st Contact Info) Description 12/22/2010 10:30 EDT Office Visit [facility] Pediatric Pulmonary - [place] [address] [place] [address] James Child MD [address] [place] [address] Asthma; Primary ciliary dyskinesia Social History Tobacco Use Types Packs/Day Years [...] * Patient Instructions* James Child MD - 12/22/2010 11:17 EDT Stop Flovent Start Advair 115/21 HFA 2 puffs twice daily with spacer Xopenex 2 puffs every 4 hours as needed Stop azithromycin for now If she has frequent illnesses, I would consider either hypertonic saline or Pulmozyme documented in this encounter Ordered Prescriptions Prescription Sig Dispense Quantity Refills Last Filled Start Date End Date fluticasone-salmet vini (ADVAIR HFA) 115-21 mcg/Actuation inhaler Inhale 2 Puffs as directed 2 times daily. Use with spacer 1 Inhaler 5 12/22/2010 2 inhalational spacing device (AEROCHAMBER) Inhale 1 Device as directed daily as needed. 1 Device 1 12/22/2010 3 documented in this encounter Progress Notes * James Child MD - 12/22/2010 1102 EDT Images from the original note were not included. Pediatric Pulmonology James Child M.D., Hayden Pearce, Jason Mohan M.D. 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 Rosario is accompanied by her mother who contributed to the history. Subjective: Since the last visit, Rosario has had 3 episodes of otitis media (with bloody and purulent drainage), 2 episodes of sinusitis with purulent drainage and some chest symptoms. She did not respond to cephalexin but she did improve with Augmentin. She had some wheezing in mid-November. She is not coughing at present. She is exercising without limitation. She becomes very cold with purple lips if she enters a cold pool. She also complains of shortness of breath. She is sleeping better at night, but she has trouble tolerating heat and humidity. When ill, she uses Xopenex every day. However, even in between illnesses, she requires Xopenex about twice a week at night usually. Airway clearance: vest 2 times a day. Rosario is not using Pulmozyme. She is not using hypertonic saline. Gastrointestinal/Nutrition: Rosario's appetite is stable. Her diet is limited due to texture issues, difficulty swallowing. Shehas about 1 stool per day. Stools are formed daily, but she has frequent bouts of diarrhea. No episodes of hard stool or constipation. Gastroesophageal reflux symptoms have much improved on Prevacid. Otolaryngology: Rosario has had rhinorrhea and congestion in November, but this has resolved off antibiotics. Allergy related symptoms are watery eyes, sneezing and clear rhinorrhea over the past two weeks. She is usingsinus rinse kits once a day. General Health: Her overall behavior has been normal. In regard to activity, she is very active. Rosario has missed 15 days of school due to illness. Environmental Exposure: No interval change since the last visit. Environmental Tobacco Exposure: No REVIEW OF SYSTEMS: Positive for: intermittent wheeze Negative for: fever, chills, fatigue, malaise, sore throat, cough, shortness of breath, wheezing, abdominal pain, vomiting, diarrhea A complete review of systems was obtained [...] placement Past Medical and Surgical History was documented [...] Grandmother ??? Celiac Disease Other Outpatient prescriptions prior to encounter Medication Sig Dispense Refill ??? ketotifen (ZADITOR) 0.025 % ophthalmic solution Place 2 Drops into both eyes 2 times daily. ??? cetirizine (ZYRTEC) 1 mg/mL Soln Take by mouth. 1 tsp qd ??? PEDI MVI NO.12/SODIUM FLUORIDE (MVC-FLUORIDE ORAL) Take by mouth. ??? WHEAT DEXTRIN (CHILDREN'S BENEFIBER ORAL) Take by mouth. ??? amoxicillin-clavulanate (AUGMENTIN) 400-57 mg/5 mL suspension Take by mouth. 1 tsp BID ??? ciprofloxacin-dexamethasone (CIPRODEX) otic suspension Place 4 Drops in ear(s) 2 times daily. ??? levalbuterol (XOPENEX HFA) 45 mcg/Actuation inhaler Inhale 2 Puffs as directed every 4 hours asneeded. ??? fluticasone (FLOVENT) 110 mcg/Actuation inhaler Inhale 2 Puffs as directed 2 times daily. ??? Sodium Chloride (HYPER-ROSA) 7 % Nebu Inhale 4 mL as directed daily. ??? azithromycin (ZITHROMAX) 200 mg/5 mL suspension [...] 1 dog; 1 cat ??? Carpets Yes Objective Data: There were no vitals taken for this visit. Wt Readings from Last 5 Encounters: 12/22/10 20 kg (44 lb 1.5 oz) (46.49%) 09/17/10 20.45 kg (45 lb 1.4 oz) (60.50%) 08/22/10 19.8 kg (43 lb 10.4 oz) (54.47%) 07/29/10 19.8 kg (43 lb 10.4 oz) (56.51%) 07/11/10 19.6 kg (43 lb 3.4 oz) (55.63%) General Appearance: well appearing, alert, no acute distress, cooperative Head: normocephalic, atraumatic Eye: no injection, no discharge, PERRLA Ear: canals clear bilaterally, tympanostomy tubes patent and in proper position Nose: septum midline, pink mucosa, no discharge Mouth\Throat: moist mucosa, oropharynx without exudate, erythema or thrush Lymph Nodes: cervical adenopathy: left greater than right Chest\Lungs: Air entry is good bilaterally, wheezing on right with forced exhalation, crackles are not appreciated, no retractions, expiratory phase is within normal limits, cough is absent Abdomen: abdomen is soft, nontender, and nondistended without hepatosplenomegaly or masses and normoactive bowel sounds are present Heart: S1/S2 RRR and no murmur Skin: Warm and dry, Cyanosis is absent MSK:Clubbing is absent Diagnostic Data: PFTs: PFTS (Before Albuterol Treatment) FVC (L): 1.47 liters FVC % Pred: 101 FEV1 (L): 1.38 liters FEV 1 % Pred: 107 FEF 25-75% (L/scc): 2.01 FEV-1/FVC: 94 PFTS (After Albuterol Treatment) FVC (L) (After Albuterol): 1.4 liters FVC % Pred (After Albuterol): 97 FEV1 (L) (After Albuterol): 1.38 liters FEV 1 % Pred (After Albuterol): 107 FEF 25-75% (L/scc) (After Albuterol): 2.6 FEV-1/FVC (After Albuterol): 99 Assessment and Plan: Rosario is 5 y.o. old female with primary ciliary dyskinesia who is stable. Her lung function (FEV1) is stable. However, she has required short-acting bronchodilators on a frequent basis indicating suboptimal asthma control. Her mother has not appreciated fewer illnesses since beginning chronic macrolide treatment. We discussed the possible use of Pulmozyme or hypertonic saline again if there arerecurrent infections. Further GI evaluation is pending regarding her ability to swallow. Rosario's nutritional status is currently adequate. The following plan was discussed with her mother: 1. Change Flovent to Advair 115/21 HFA 2 puffs twice daily with spacer 2. Xopenex every 4 hours as needed. 3. Will discontinue azithromycin 4. continue airway clearance: 2-3 times daily by vest. 5. Studies today include: spirometry. 6. CXR and throat/sputum culture at next visit 7. Coordinate bronchoscopy if Rosario requires endoscopy 8. Follow up in 3 months. Please contact me with questions or concerns regarding Rosario's care. Sincerely, JAMES CHILD MD documented in this encounter Miscellaneous Notes * Scanned Note-Null - Instrument Lens Grinder, Scan - 12/31/2010 1570 EDTAssociated Order(s): PULMONARY FUNCTION LAB REPORT - SCANNED documented in this encounter Plan of Treatment Upcoming Encounters Date Type Department Care Team (Late st Contact Info) Description 04/24/2024 15:30 EST Telemedicine [facility] Pediatric Pulmonary - Main [address] [address] Lucy Rodgers MD [address] [place] [address] documented as of this encounter Procedures Procedure Name Priority Date/Time Associated Diagnosis Comments PULMONARY FUNCTION REPORT - SCANNED 12/31/2010 14:40 EDT documented in this encounter Results * PULMONARY FUNCTION LAB REPORT - SCANNED (12/31/2010 14:40 EDT) 12/31/2010 14:4 0 EDT Narrative Procedure Note Instrument Lens Grinder, Scan - 12/31/2010 14:40 EDT us Scan Instrument Lens Grinder PROCEDURE/MINOR SURGICAL ORDE RABLES Final Result documented in this encounter Visit Diagnoses Diagnosis Asthma Unspecified asthma 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 05/23/2010 12/22/2010 documented as of this encounter Historical Medications * This list may reflect changes made after this encounter. sodium chloride sinus rinse (NEILMED SINUS RINSE) Pack 1 Kit by Nasal route as needed. 02/04/2011 lansoprazole (PREVACID) 30 mg capsule Take 30 mg by mouth daily. 04/20/2011 added in this encounter Orders PFT Count Last Ordered Date First Orde red Date SPIROMETRY WITH BRONCHODILATOR 1 12/19/2010 documented in this encounter Care Teams Strap Stitcher Relationship Specialty Start Date End Date Trell Sanon MD [address] [place], [place] [address] [address] PCP - General 04/10/09 documented as of this encounter
--- OUTSIDE RECORDS SUMMARY | 2024-03-30 21:51 | XMS_ITS | Encounter Summary ---
Author Organization [facility] Address [address] [place] [address] Care Team Providers Care Client Project Coordinator Name Role Phone Trell Pittman MD Primary Care Provider [phone] Reason for Visit * Reason Onset Date Comments Cough 08/26/2010 Cough and runny nose Encounter Details Date Type Department Care Team (Late st Contact Info) Description 08/26/2010 Telephone [facility] Pediatric Pulmonary - [facility] [address] [place] [address] James Franklin MD [address] [place] [address] Cough (Cough and runny nose) Social History Tobacco Use Types Packs/Day Years [...] Refills Last Filled Start Date End Date cephALEXin (KEFLEX) 250 mg/5 mL suspension Take 7.5 mL by mouth 3 times daily. 225 mL 0 08/26/2010 09/17/2010 documented in this encounter Miscellaneous Notes * Telephone Encounter - Shanel Boone - 08/26/[address] Franklin Start on Keflex 1.5 tsp TID X10 days. Rx faxed. Mom aware. * Telephone Encounter - Eloisa Arellano. - 08/26/2010 1506 EDT Rosario has had an ongoing cold. She is coughing and has a runny nose - green in the morning and clearer during the day. Her pcp has been on vacation for a month and will be gone for one more week. The other doctor does not really know Rosario. She would like to speak with someone about what she can do for Rosario. documented in this encounter Plan of Treatment Upcoming Encounters Date Type Department Care Team (Late st Contact Info) Description 04/24/2024 15:30 EST Telemedicine [facility] Pediatric Pulmonary - [facility] [address] [place], [place] [id number] Lucy Rodgers MD [address] [place] [phone] documented as of this encounter Visit Diagnoses Not on filedocumented in this encounter Care Teams Client Project Coordinator Relationship Specialty Start Date End Date Trell Pittman MD [address] [place] [address] [place] [address] PCP - General 04/10/09 documented as of this encounter
--- OUTSIDE RECORDS SUMMARY | 2024-03-30 21:51 | XMS_ITS | Encounter Summary ---
Author Organization [facility] Address [address] [place] [address] Care Team Providers Care Roller Picker Name Role Phone Trell Pittman MD Primary Care Provider [phone] [phone] Encounter Details Date Type Department Care Team (Late st Contact Info) Description 01/22/2010 Abstract [facility] ENT[address] [id number] Felix Spears MD [address] [place] [address], [address] [place] [address] Social History Tobacco Use Types [...] EST Telemedicine [facility] Pediatric Pulmonary [address] [phone] Lucy Rodgers MD [address] [place] [phone] documented as of this encounter Visit Diagnoses Not on filedocumented in this encounter Care Teams Roller Picker Relationship Specialty Start Date End Date Trell Pittman MD [address] [place] [address] [facility] [place] [address] PCP - General 04/10/09 documented as of this encounter
--- OUTSIDE RECORDS SUMMARY | 2024-03-30 21:51 | XMS_ITS | Encounter Summary ---
Author Organization [facility] Address [address] [place] [address] Care Team Providers Care Associate Product Manager Name Role Phone Trell Pittman MD Primary Care Provider [phone] Reason for Visit * Reason Onset Date Comments Appointment Related 05/26/2010 Encounter Details Date Type Department Care Team (Late st Contact Info) Description 05/26/[address] [facility] Pediatric Pulmonary - [facility] [address] [place] [address] James Franklin MD [address] [place] [address] Appointment Related Social History Tobacco [...] * Telephone Encounter - Eloisa Arellano - 05/28/2010 1426 EST I spoke with Lucy. Rosario is having her tubes put in at 9:50. We do not have any appointments available after that. Lucy will call to schedule her follow-up appointment for a different date. * Telephone Encounter - Ebony Abbott - 05/26/2010 1341 EST Needs an appointment in [address] Franklin and also Dr Raines. He has a appointment on to put tubes in her ears and mom was wondering if it was ok to do it all on the same day Thanks so much Ebony documented in this encounter Plan of Treatment Upcoming Encounters Date Type Department Care Team (Late st Contact Info) Description 04/24/2024 15:[address] [facility] Pediatric Pulmonary - [address] [phone] Lucy Rodgers MD [address] [place] [phone] documented as of this encounter Visit Diagnoses Not on filedocumented in this encounter Care Teams Associate Product Manager Relationship Specialty Start Date End Date Trell Pittman MD [address] [place] [address] PCP - General 04/10/09 documented as of this encounter
--- OUTSIDE RECORDS SUMMARY | 2024-03-30 21:51 | XMS_ITS | Encounter Summary ---
Author Organization [facility] Address [address] [place] [address] Care Team Providers Care Identity Access Management Architect Name Role Phone Trell Pittman MD Primary Care Provider [phone] Encounter Details Date Type Department Care Team (Late st Contact Info) Description 09/17/2010 10:17 EDT - 09/17/2010 23:59 EDT Hospital Encounter [facility] Pulmonary Function Lab - [facility] [place] [address] [place], [place] [phone] Unknown, Provider, James Reyna MD [address] [place] [address] Discharge Disposition: Home or Self [...] this encounter Medications at Time of Discharge amoxicillin-clav ulanate (AUGMENTIN) 400-57 mg/5 mL suspension Take by mouth. 1 tsp BID 12/22/2010 azithromycin (ZITHROMAX) 200 mg/5 mL suspension Take 5 mL by mouth three times a week. Take 1 tsp by mouth (5ml) three times per week (M,W, F) 60 mL 2 02/14/2010 08/08/2012 cetirizine (ZYRTEC) 1 mg/mL Soln Take by mouth. 1 tsp qd 05/24/2015 ciprofloxacin-de xamethasone (CIPRODEX) otic suspension Place 4 Drops in ear(s) 2 times daily. 12/22/2010 fluticasone (FLOVENT) 110 mcg/Actuation inhaler Inhale 2 Puffs as directed 2 times daily. 05/23/2010 12/22/2010 ketotifen (ZADITOR) 0.025 % ophthalmic solution Place 2 Drops into both eyes 2 times daily. 06/26/2011 levalbuterol (XOPENEX HFA) 45 mcg/Actuation inhaler Inhale 2 Puffs as directed every 4 hours as needed. 02/04/2011 Multivitamins with Minerals Tab Take 1 Tab by mouth three times a week. 05/24/2015 PEDI MVI NO.12/SODIUM FLUORIDE (MVC-FLUORIDE ORAL) Take by mouth. 05/13/2011 POLYETHYLENE GLYCOL 3350 (MIRALAX ORAL) Take 1 Cap by mouth daily. Varies 1-1/2 caps per day 07/29/2010 06/26/2011 PREVACID 30 mg capsule Take 1 Cap by mouth daily for 90 days. 90 Cap 2 08/27/2010 04/19/2011 Sodium Chloride (HYPER-ROSA) 7 % Nebu Inhale 4 mL as directed daily. 07/29/2010 12/22/2010 WHEAT DEXTRIN (CHILDREN'S BENEFIBER ORAL) Take by mouth. 06/26 documented as of this encounter Discharge Disposition Disposition Code Departure Means Destination Home or Self Nursing Home documented in this encounter Progress Notes * Celestine Morrissey - 09/17/2010 1053 EDT Testing was performed and recorded in [employer]. documented in this encounter Plan of Treatment Upcoming Encounters Date Type Department Care Team (Late st Contact Info) Description 04/24/2024 15:30 EST Telemedicine [facility] Pediatric Pulmonary - Main [place] [address] [place], [place] [address] Lucy Rodgers MD [address] [place] [phone] documented as of this encounter Visit Diagnoses Not on filedocumented in this encounter Administered Medications Inactive Administered Medications - up to 3 most recent administrations Medication Order MAR Action Action Date Dose Rate Site albuterol (PROVENTIL HFA, VENTOLIN HFA) inhaler 2 Puff 2 Puff, inhalation, Once (Without Time Specified), 1 dose, Starting on Wed09/17/10 at 1115, Until Wed09/17/10 at 1050, Routine Given 09/17/2010 10:50 EDT 2 Puffs documented in this encounter Orders Medications Ordered That Janes ht Not Have Been Administered Count Last Ordered Date First Ordered Date albuterol (PROVENTIL HFA, VE NTOLIN HFA) inhaler 2 Puff 1 09/17/2010 documented in this encounter Care Teams Identity Access Management Architect Relationship Specialty Start Date End Date Trell Pittman MD [address] [place] [address] PCP - General 04/10/09 documented as of this encounter
--- OUTSIDE RECORDS SUMMARY | 2024-03-30 21:51 | XMS_ITS | Encounter Summary ---
Author Organization [facility] Address [address] [place] [address] Care Team Providers Care Physical Security Engineer Name Role Phone Trell Pittman MD Primary Care Provider [phone] Encounter Details Date Type Department Care Team (Late st Contact Info) Description 09/17/2010 Orders Only [address] [address] Paulina Briggs RN [address] [place] [phone] Asthma (Primary Dx) Social History Tobacco Use [...] Contact Info) Description 04/24/2024 15:30 EST Telemedicine [address] [phone] Lucy Rodgers MD [address] [place] [phone] Scheduled Orders Name Type Priority Associated Diagnoses Orde r Schedule SPIROMETRY WITH BRONCHODILATOR PFT Routine Asthma Ordered: 09/17/2010 documented as of this encounter Visit Diagnoses Diagnosis Asthma- Primary Unspecified asthma documented in this encounter Care Teams Physical Security Engineer Relationship Specialty Start Date End Date Trell Pittman MD [address] [place] [address] [address] [facility] [place] [address] PCP - General 04/10/09 documented as of this encounter
--- OUTSIDE RECORDS SUMMARY | 2024-03-30 21:51 | XMS_ITS | Encounter Summary ---
Author Organization [facility] Address [address] [place] [address] Care Team Providers Care Steel Fabricator Name Role Phone Trell Sanon MD Primary Care Provider [phone] [phone] Reason for Visit * Reason Comments Nasal Congestion Cough Encounter Details Date Type Department Care Team (Late st Contact Info) Description 07/29/2010 11:45 EDT Office Visit [facility] Pediatric Pulmonary - Main [place] [address] [place] [address] Rashmi Tabares, ANATOMIC PATHOLOGY ASSISTANT [address] [place] [phone] Primary ciliary dyskinesia; Asthma; GERD (gastroesophageal reflux disease); Bronchiectasis with acute exacerbation ([facility]) Discharge Disposition: Auto Discharge Social History Tobacco [...] Sign Reading Time Taken Comments Blood Pressure 100/51 07/29/2010 1210 EDT Pulse 95 07/29/2010 1210 EDT Temperature - - Respiratory Rate 24 07/29/2010 1210 EDT Oxygen Saturation 100% 07/29/2010 1210 EDT Inhaled Oxygen Concentration - - Weight 19.8 kg (43 lb 10.4 oz) 07/29/2010 1210 E DT Height 118.5 cm (3' 10.65) 07/29/2010 1210 EDT Mttgta-rqu-Usncgu Percentile 14.66% 07/29/2010 1 210 EDT Growth Chart: [facility] (Girls, 2- 20 Years) Body Mass Index 14.1 07/29/2010 1210 EDT Body Mass Index Percentile 17.82% 07/29/2010 121 0 EDT Growth Chart: [facility] (Girls, [...] this encounter Progress Notes * Rashmi Tabares INSPECTOR PRECISION - 07/29/2010 1314 EDT Images from the original note were not included. Pediatric Pulmonology James Franklin M.D., Hayden Pearce, Jason Mohan M.D. [place] [id number] 07/31/2010 TRELL SANON MD [facility] [address] Chief complaint: Rosario is a 4 y.o. old female with Cystic Fibrosis who presents for interval follow-up. Rosario is accompanied by her mother who contributed to the history. Subjective: Since the last visit, Rosario has been symptomatic with nasal congestion and cough on and off during this winter. She has been treated at least 3 times with Augmentin per mother for sinus and ear infections. She recently finished a course of augmentin 2 weeks ago and her symptoms have improved. She has not done her sinus rinses in 2 weeks, however she does feel that she should be using her sinus rinses as she feels very stuffy today. She has not had any fever, fatigue, chills, night sweats,or headaches. She has had a cough, but mom feels it is caused by post-nasal drip, though her nose is not really running. She has not had wheezing, increased work of breathing, difficulty breathing, shortness of breath, turning blue, not breathing, chest tightness, chest pain and limitations due to exercise. Her sleep is usually pretty good, lately she has had some difficulty with getting to sleep. There are not episodes of apnea, labored breathing and cyanosis. Seasonal Influenza Vaccine: Already received. Airway clearance: vest 1-2 times a day. Rosario is not using Pulmozyme. She is using hypertonic saline once daily. Gastrointestinal/Nutrition: Rosario's appetite is stable. Her diet is healthy diet in general well balanced. She has about 1 stools per day. Stools are formed and hard. Gastroesophageal reflux symptoms include wet burps once to twice a week and abdominal pain which can be due to constipation per mother. Otolaryngology: Rosario has had itchy eyes, rhinorrhea, congestion and ear pain. Allergy related symptoms are itchy, clear rhinorrhea and throat clearing. She is not using sinus rinse kits 0 a day. General Health: Her overall behavior has been normal, playful. In regard to activity, she is very active. Rosario has missed 15 days of school due to illness. Environmental Exposure: Heating System: oil, and wood stove Pets: 1 cat(s) and 1 dog(s) Dust Mite Control: Dust mite covers in use. Carpets: wall to wall (not in Rosario's bedroom) Environmental Tobacco Exposure: No REVIEW OF SYSTEMS: Positive for: runny nose, congestion, cough Negative for: fever, fussy, chills, fatigue, eye drainage, ear pain, sore throat, shortness of breath, wheezing, vomiting, diarrhea, headache, rash A complete review of systems was obtained and was negative except listed above. Past Medical History Diagnosis Date ??? OM (otitis media) ??? Asthma Always rattley per mom ??? Esophageal reflux ??? Unspecified sinusitis (chronic) Past Surgical History Procedure Date ??? Pyloromyotomy 3 sets of PE tubes ??? Pr bronchoscopy,diagnostic w lavage 02/11/2010 ??? Pr create eardrum opening,gen anesth ??? Adenoidectomy Past Medical and Surgical History was documented in [facility]. Family History Problem Relation Age of Onset ??? Allergies Mother ??? Allergies Father ??? * Brother lactose intolerant Outpatient prescriptions prior to encounter Medication Sig Dispense Refill ??? ciprofloxacin-dexamethasone (CIPRODEX) otic suspension Place 4 Drops in ear(s) 2 times daily asneeded for Other (discharge). 1 Bottle 11 ??? levalbuterol (XOPENEX HFA) 45 mcg/Actuation inhaler Inhale 2 Puffs as directed every 4 hours asneeded. ??? fluticasone (FLOVENT) 110 mcg/Actuation inhaler Inhale 2 Puffs as directed 2 times daily. ??? Sodium Chloride (HYPER-ROSA) 7 % Nebu Inhale 4 mL as directed daily. ??? KETOTIFEN FUMARATE (ALAWAY OPHT) Apply to eye. ??? AMOX TR/POTASSIUM CLAVULANATE (AUGMENTIN ORAL) Take by mouth. ??? azithromycin (ZITHROMAX) 200 mg/5 mL suspension Take 5 mL by mouth three times a week. Take 1 tsp by mouth (5ml) three times per week (M,W, F) 60 mL 2 ? ? lactobacillus acidophilus & bulgar (LACTINEX) 1 million cell Chew Take 1 Tab by mouth 3 times daily with meals. 50 Tab 0 ??? acetaminophen (TYLENOL) 160 mg/5 mL solution Take 5.5 mL by mouth every 4 hours as needed for Pain for 4 doses. 30 mL 0 ??? POLYETHYLENE GLYCOL 3350 (MIRALAX ORAL) Take 1 Cap by mouth daily. ??? Multivitamins with Minerals Tab Take 1 [...] 1 cat ??? Carpets Yes Objective Data: BP 100/51 Pulse 95 Resp 24 Ht 118.5 cm (46.65) Wt 19.8 kg (43 lb 10.4 oz) BMI 14.10 kg/m2 SpO2 100% Wt Readings from Last 5 Encounters: 07/29/10 19.8 kg (43 lb 10.4 oz) (56.51%) 07/11/10 19.6 kg (43 lb 3.4 oz) (55.63%) 05/23/10 18.6 kg (41 lb 0.1 oz) (45.69%) 02/11/10 19.051 kg (42 lb) (61.37%) 12/06/09 18.6 kg (41 lb 0.1 oz) (61.08%) General Appearance: well appearing, alert, no acute distress Head: normocephalic, atraumatic Eye: no injection, no discharge, PERRLA Ear: canals clear bilaterally, tympanostomy tubes patent and in proper position Nose: clear rhinorrhea, dried mucus, mucosal erythema, mucosal edema Mouth\Throat: [...] PFTs: PFTS (Before Albuterol Treatment) FVC (L): 1.7 liters FVC % Pred: 118 FEV1 (L): 1.3 liters FEV 1 % Pred: 97 FEF 25-75% (L/scc): 1.14 FEF 25-75% Pred: 67 FEV-1/FVC: 77 PFTS (After Albuterol Treatment) FVC (L) (After Albuterol): 1.33 liters FVC % Pred (After Albuterol): 92 FEV1 (L) (After Albuterol): 1.29 liters FEV 1 % Pred (After Albuterol): 97 FEF 25-75% (L/scc) (After Albuterol): 2.42 FEF 25-75% Pred (After Albuterol): 141 FEV-1/FVC (After Albuterol): 98 Culture Results: No results found for this or any previous visit. Assessment and Plan: Rosario is 4 y.o. old female with primary ciliary dyskinesia, asthma and chronic sinusitis who is symptomatic with nasal congestion and a throat clearing type of cough. Her lung function (FEV1) is stable, and she continues to improve on her technique. We discussed good airway clearance and sinus rinses to help maintain her health. Mother and Rosario agreed to increase her chest PT and restart her sinus rinses. We discussed starting an antibiotic, but as she is actually clearing this cold per mother and will wait and see if she continues to improve with increased maintenance. Rosario's nutritional status is currently adequate. Appetite is very good per mother, however due to constipation being an issue she does have a consultation with Pediatric GI team scheduled in August. Asthma and Postnasal drip may be exacerbating factor(s). The following plan was discussed with her mother: 1. Continue medications as above. (Mom recently had medications refilled). 2. Hypertonic saline nebulized twice daily with vest treatment (this is an increase). 3. Restart nasal rinse kits 2-3 times a day. 4. increase airway clearance: 3 times daily by vest. 5. Discussed the following exercise recommendations: continue current activity level. 6. Addressed environmental tobacco smoke exposure. 7. Follow up in 3 months. Seasonal Influenza Vaccine: Already received. Please contact me with questions or concerns regarding Rosario's care. Sincerely, Rashmi Tabares NP documented in this encounter Miscellaneous Notes * Scanned Note-Null - Inpatient, Physician - 08/22/2010 1548 EDTAssociated Order(s): PULMONARY FUNCTION LAB REPORT - SCANNED documented in this encounter Plan of Treatment Upcoming Encounters Date Type Department Care Team (Late st Contact Info) Description 04/24/2024 15:30 EST Telemedicine [facility] Pediatric Pulmonary - [place] [address] [place] [address] Lucy Rodgers MD [address] [place] [address] documented as of this encounter Procedures Procedure Name Priority Date/Time Associated Diagnosis Comments PULMONARY FUNCTION REPORT - SCANNED 08/22/2010 15:48 EDT documented in this encounter Results * PULMONARY FUNCTION LAB REPORT - SCANNED (08/22/2010 15:48 EDT) 08/22/2010 15:4 8 EDT Narrative Procedure Note Inpatient, Physician - 08/22/2010 15:48 EDT Physician Inpatient MD PROCEDURE/MINOR SURGICAL ORDERABLES Final Result documented in this encounter Visit Diagnoses Diagnosis Primary ciliary dyskinesia Situs inversus Asthma Unspecified asthma GERD (gastroesophageal reflux disease) Esophageal reflux Bronchiectasis with acute exacerbation ([facility]) Bronchiectasis with acute exacerbation documented in this encounter Discontinued Medications Medication Sig Discontinue Reason Start Date End Da te AMOX TR/POTASSIUM CLAVULANATE (AUGMENTIN ORAL) Take by mouth. Therapy completed 07/29/2010 ciprofloxacin-dexamethaso ne (CIPRODEX) otic suspension Place 4 Drops in ear(s) 2 times daily as needed for Other (discharge). Therapy completed 07/11/2010 07/29/2010 lactobacillus acidophilus & bulgar (LACTINEX) 1 million cell Chew Take 1 Tab by mouth 3 times daily with meals. Therapy completed 02/14/2010 07/29/2010 documented as of this encounter Care Teams Steel Fabricator Relationship Specialty Start Date End Date Trell Sanon MD [address] [facility] [place] [address] PCP - General 04/10/09 documented as of this encounter
--- OUTSIDE RECORDS SUMMARY | 2024-03-30 21:51 | XMS_ITS | Encounter Summary ---
Author Organization [facility] Address [address] [place] [address] Care Team Providers Care Substation Operator Conversion Name Role Phone Trell Pittman MD Primary Care Provider [phone] [phone] Reason for Visit * Reason Onset Date Comments Follow-up 02/02/2011 Encounter Details Date Type Department Care Team (Late st Contact Info) Description 02/02/2011 Telephone [facility] Pediatric Specialty Center - [facility] [address] [place] [address] Sharad Nieto MD [address] [place] [phone] Follow-up Social History Tobacco Use [...] Telephone Encounter - Marga Calvillo RN - 02/02/2011 1143 EDT Spoke to Mom and gave her the new instructions Rosario is to do liquids on Wednesday and repeat her prep again on Wednesday afternoon * Telephone Encounter - Sharad Raines MD - 02/02/2011 1108 EDT Repeat prep tomorrow - day prior to scope * Telephone Encounter - Marga Calvillo RN - 02/02/2011 0930 EDT Had diarrhea 5 times yesterday, this morning it was brown watery liquid and she only went once She went to school and Mom will not see her until 4 pm She needs to know what to do for her today as far as cleaning her out more for the colo on Wednesday. She normally takes Miralax daily but she did not give it this morning * Telephone Encounter - Harley Melton. - 02/02/2011 0903 EDT Calling to report that she did the miralax over there weekend, and was sick from it, vomiting and diarrhea. She is scheduled for a colonoscopy this Wednesday, please give her a call to discuss. documented in this encounter Plan of Treatment Upcoming Encounters Date Type Department Care Team (Late st Contact Info) Description 04/24/2024 15:30 EST Telemedicine [facility] Pediatric Pulmonary - [facility] [address] [place] [address] Lucy Rodgers MD [address] [place] [phone] documented as of this encounter Visit Diagnoses Not on filedocumented in this encounter Care Teams Substation Operator Conversion Relationship Specialty Start Date End Date Trell Pittman MD [address] [place] [address] PCP - General 04/10/09 documented as of this encounter
--- OUTSIDE RECORDS SUMMARY | 2024-03-30 21:51 | XMS_ITS | Encounter Summary ---
Author Organization [facility] Address [address] [place] [address] Care Team Providers Care Motorcycle Designer Name Role Phone Trell Pittman MD Primary Care Provider [phone] Reason for Visit * Reason Onset Date Comments Ear Infection (Otitis Media) 09/15/2010 [facility] t ear Encounter Details Date Type Department Care Team (Late st Contact Info) Description 09/15/2010 Telephone [facility] ENT- Main [place] [address] [place], [place] [phone] Belen Butcher LPN Ear Infection (Otitis Media) (left ear) Social History Tobacco Use Types Packs/Day [...] Telephone Encounter - Belen Butcher LPN - 09/15/2010 1311 EDT Patient's mother called. Patient diagnosed with a left OM in local ER . Patient had been of Cephalexin for sinus infection and was switched to Augmentin. School nurse saw PET in ear ? Functioning. Noear drainage at present. Advised mother we should see patient after completion of Augmentin, if child develops ear drainage she should start Ciprodex drops as prescribed. Mother verbalized understanding of care plans. documented in this encounter Plan of Treatment Upcoming Encounters Date Type Department Care Team (Late st Contact Info) Description 04/24/2024 15:30 EST Telemedicine [facility] Pediatric Pulmonary - [address] [phone] Lucy Rodgers MD [address] [place] [phone] documented as of this encounter Visit Diagnoses Not on filedocumented in this encounter Care Teams Motorcycle Designer Relationship Specialty Start Date End Date Tre[place] [address] PCP - General 04/10/09 documented as of this encounter
--- OUTSIDE RECORDS SUMMARY | 2024-03-30 21:51 | XMS_ITS | Encounter Summary ---
Author Organization [facility] Address [address] [place] [address] Care Team Providers Care Staff Educator Name Role Phone Trell Sanon MD Primary Care Provider [phone] [phone] Reason for Visit * Reason Comments Other primary ciliary dysk inesia Encounter Details Date Type Department Care Team (Late st Contact Info) Description 09/17/2010 11:00 EDT Office Visit [facility] Pediatric Pulmonary - Main [place] [address] [place] [address] James Child MD [address] [place] [address] Primary ciliary dyskinesia (Primary Dx) Discharge Disposition: Auto Discharge Social [...] Sign Reading Time Taken Comments Blood Pressure 93/55 09/17/2010 1125 EDT Pulse 81 09/17/2010 1125 EDT Temperature - - Respiratory Rate 18 09/17/2010 1125 EDT Oxygen Saturation 100% 09/17/2010 1125 EDT Inhaled Oxygen Concentration - - Weight 20.5 kg (45 lb 1.4 oz) 09/17/2010 1125 ED T Height 118.9 cm (3' 10.81) 09/17/2010 1125 EDT Grttzs-xks-Rrrkfo Percentile 22.98% 09/17/2010 1 125 EDT Growth Chart: [facility] (Girls, 2- 20 Years) Body Mass Index 14.47 09/17/2010 1125 EDT Body Mass Index Percentile 28.42% 09/17/2010 112 5 EDT Growth Chart: [facility] (Girls, 2- 20 Years) documented [...] Progress Notes * James Child MD - 09/17/2010 1140 EDT Images from the original note were not included. Pediatric Pulmonology James Child M.D., Hayden Pearce, Jason Mohan M.D. [address] [address] Encounter Date: 09/17/2010 TRELL SANON MD [facility] [id number] Chief complaint: Rosario is a 4 y.o. old female with ciliary dyskinesia who presents for interval follow-up. Rosario is accompanied by her mother who contributed to the history. Subjective: Since the last visit, Rosario has symptomatic with congestion and cough for over a month. She was placed on cephalexin about 3 weeks ago without any improvement. She was coughing with exertion, at night and throughout the day. She has not been expectorating sputum. Occasionally she will produce yellow-green sputum with vest treatments. Since she was changed to Augmentin about a week ago, her cough and congestion quickly improved after 3-4 days. Her cough has now dissipated completely and congestion is nearly gone. She also had experienced some left ear drainage which has resolved. Her sleep pattern has been better for the past week. There are no episodes of apnea and labored breathing. Airway clearance: vest 2-3 times a day. Rosario is not using Pulmozyme. She is using hypertonic saline. Gastrointestinal/Nutrition: Rosario's appetite is stable. Her diet is healthy diet in general. She has about 2-3 stools per week, but this has improved with Miralax. Stools are loose. Gastroesophageal reflux symptoms have much improved on Prevacid. Otolaryngology: Rosario has had rhinorrhea and congestion, now resolving. Allergy related symptoms are watery eyes,sneezing and clear rhinorrhea. This has improved on Zyrtec. She is using sinus rinse kits once a day. General Health: Her overall behavior has been normal. In regard to activity, she is very active. Rosario has missed 15 days of school due to illness. Environmental Exposure: No interval change since the last visit. Environmental Tobacco Exposure: No REVIEW OF SYSTEMS: Positive for: runny nose, swollen glands Negative for: fever, chills, fatigue, malaise, sore [...] to encounter Medication Sig Dispense Refill ??? PREVACID 30 mg capsule Take 1 Cap by mouth daily for 90 days. 90 Cap 2 ??? cephALEXin (KEFLEX) 250 mg/5 mL suspension Take 7.5 mL by mouth 3 times daily. 225 mL 0 ??? ciprofloxacin-dexamethasone (CIPRODEX) otic suspension Place 4 [...] cat ??? Carpets Yes Objective Data: BP 93/55 Pulse 81 Resp 18 Ht 118.9 cm (46.81) Wt 20.45 kg (45 lb 1.4 oz) BMI 14.47 kg/m2 SpO2 100% Wt Readings from Last 5 Encounters: 09/17/10 20.45 kg (45 lb 1.4 oz) (60.50%) 08/22/10 19.8 kg (43 lb 10.4 oz) (54.47%) 07/29/10 19.8 kg (43 lb 10.4 oz) (56.51%) 07/11/10 19.6 kg (43 lb 3.4 oz) (55.63%) 05/23/10 18.6 kg (41 lb 0.1 oz) (45.69%) General Appearance: well appearing, alert, no acute [...] PFTs: PFTS (Before Albuterol Treatment) FVC (L): 1.48 liters FVC % Pred: 101 FEV1 (L): 1.37 liters FEV 1 % Pred: 101 FEF 25-75% (L/scc): 2.15 FEF 25-75% Pred: 124 FEV-1/FVC: 93 PFTS (After Albuterol Treatment) FVC (L) (After Albuterol): 1.53 liters FVC % Pred (After Albuterol): 105 FEV1 (L) (After Albuterol): 1.46 liters FEV 1 % Pred (After Albuterol): 107 FEF 25-75% (L/scc) (After Albuterol): 2.5 FEF 25-75% Pred (After Albuterol): 145 FEV-1/FVC (After Albuterol): 95 Assessment and Plan: Rosario is 4 y.o. old female with primary ciliary dyskinesia who is stable. Her lung function (FEV1) is stable. There was a mild, though not significant bronchodilator response. She seems to have clinically responded well to Augmentin. I discussed her chronic azithromycin treatment. Her mother doesnot feel that Rosario has been healthier, although she admits that Rosario was unable to receive the appropriate dose due to pharmacy error. Also, although previous allergy testing had been unrevealing, Rosario continues to develop seasonal allergic-type symptoms. Rosario's nutritional status is currently adequate. The following plan was discussed with her mother: 1. Continue medications as above. 2. Will continue azithromycin treatment for another 3 months and then reassess 3. continue airway clearance: 2-3 times daily by manual chest pt and vest. 4. Studies today include: spirometry. 5. CXR and throat/sputum culture at next visit 6. Follow up in 3 months. Please contact me with questions or concerns regarding Rosario's care. Sincerely, JAMES CHILD MD documented in this encounter Miscellaneous Notes * Scanned Note-Null - [facility], Scan - 10/15/2010 0805 EDTAssociated Order(s): PULMONARY FUNCTION LAB REPORT - SCANNED documented in this encounter Plan of Treatment Upcoming Encounters Date Type Department Care Team (Late st Contact Info) Description 04/24/2024 15:30 EST Telemedicine [facility] Pediatric Pulmonary - [address] [address] Lucy Rodgers MD [address] [place] [phone] documented as of this encounter Procedures Procedure Name Priority Date/Time Associated Diagnosis Comments PULMONARY FUNCTION REPORT - SCANNED 10/15/2010 8:05 EDT documented in this encounter Results * PULMONARY FUNCTION LAB REPORT - SCANNED (10/15/2010 8:05 EDT) 10/15/2010 8:05 EDT Narrative Procedure Note [facility], Scan - 10/15/2010 8:05 EDT us Scan [facility] PROCEDURE/MINOR SURGICAL ORDE RABLES Final Result documented in this encounter Visit Diagnoses Diagnosis Primary ciliary dyskinesia- Primary Situs inversus documented in this encounter Discontinued Medications Medication Sig Discontinue Reason Start Date End Da te cephALEXin (KEFLEX) 250 mg/5 mL suspension Take 7.5 mL by mouth 3 times daily. Alternate therapy 08/26/2010 09/17/2010 KETOTIFEN FUMARATE (ALAWAY OPHT) Apply to eye. Alternate therapy 09/17/2010 documented as of this encounter Historical Medications * This list may reflect changes made after this encounter. WHEAT DEXTRIN (CHILDREN'S BENEFIBER ORAL) Take by mouth. 06/26/2011 PEDI MVI NO.12/SODIUM FLUORIDE (MVC-FLUORIDE ORAL) Take by mouth. 05/13/2011 cetirizine (ZYRTEC) 1 mg/mL Soln Take by mouth. 1 tsp qd 05/24/2015 amoxicillin-clavu lanate (AUGMENTIN) 400-57 mg/5 mL suspension Take by mouth. 1 tsp BID 12/22/2010 ketotifen (ZADITOR) 0.025 % ophthalmic solution Place 2 Drops into both eyes 2 times daily. 06/26/2011 added in this encounter Care Teams Staff Educator Relationship Specialty Start Date End Date Trell Sanon MD [address] [place] [address] PCP - General 04/10/09 documented as of this encounter
--- OUTSIDE RECORDS SUMMARY | 2024-03-30 21:51 | XMS_ITS | Encounter Summary ---
Author Organization [facility] Address [address] [place] [address] Care Team Providers Care Registered Physical Therapist Name Role Phone Trell Pittman MD Primary Care Provider [phone] [phone] Reason for Visit * Reason Comments Follow-up recheck ears Encounter Details Date Type Department Care Team (Late st Contact Info) Description 01/23/2010 15:55 EDT Office Visit [facility] ENT- [address] [address] Felix Spears MD [address] [place] [address], [address] [place] [address] Simple or unspecified chronic serous [...] on file documented as of this encounter Progress Notes * Felix Spears MD - 01/31/2010 1587 EDT DIVISION OF OTOLARYNGOLOGY PROGRESS/FOLLOWUP NOTE - 01/23/2010 CHIEF COMPLAINT: Recurrent otitis media, chronic serous otitis media, chronic sinusitis. SUBJECTIVE: She is having no ear pain, no ear drainage. She does dig at her right ear a little bit and complains at that side. OBJECTIVE: Alert, cooperative, well-nourished female in no distress today. Voice communication skills are normal. Head and face inspection normal. Palpation normal. Salivary glands are normal today. Facial strength is normal today. External ear and nose all normal. Eyes are normal today. Otoscopy: Ear canals are normal bilaterally. There is some mild fluid in the right middle ear space. Left tubeis in place and functioning. Middle ear is clear on the left side today. Nose: Midline septum, congested turbinates and a purulent rhinitis today. Lip, teeth and gums all within normal limits. Oral cavity, oropharynx is normal today. Palpation of the neck reveals some bilateral level 2 cervical adenopathy soft, mobile, nontender. There are no masses in the neck. The thyroid is normal today. Audiogram by Isabel Galeano showed normal hearing in the left and a mild conductive loss on the right side.Tympanograms abnormal on the right, normal on the left with a high volume. ASSESSMENT: Right serous otitis media, mild conductive hearing loss, chronic sinusitis. PLAN: The patient was evaluated in [place]. They felt she did not have abnormal ciliary disease, butthey are going to treat her as if she did. Electronically Signed by Felix Spears MD 01/31/2010 15:54 Felix Spears MD - Felix Spears MD - Job ID: SM Doc ID: [id number] Ext Doc ID: [id number] cc: Trell Pittman MD * Felix Spears MD - 01/23/2010 1605 EDT This office note has been dictated. documented in this encounter Procedure Notes * Inpatient, Physician - 01/27/2010 1028 EDT documented in this encounter Plan of Treatment Upcoming Encounters Date Type Department Care Team (Late st Contact Info) Description 04/24/2024 15:30 EST Telemedicine [facility] Pediatric Pulmonary - [facility] [address] [place], [place] [phone] Lucy Rodgers MD [address] [place] [phone] Scheduled Orders Name Type Priority Associated Diagnoses Orde r Schedule HEARING EVALUATION Audiology Routine Simple or unspecified chronic serous otitis media Ordered: 01/23/2010 documented as of this encounter Visit Diagnoses Diagnosis Simple or unspecified chronic serous otitis media- Primary documented in this encounter Discontinued Medications Medication Sig Discontinue Reason Start Date End Da te ketotifen (ALAWAY) 0.025 % ophthalmic solution Place 1 Drop into both eyes 2 times daily. Patient Stopped Taking 01/23/2010 lactobacillus acidophilus & bulgar (LACTINEX) 1 million cell Chew Take 1 Tab by mouth 3 times daily with meals. Patient Stopped Taking 12/03/2008 01/23/2010 documented as of this encounter Historical Medications * This list may reflect changes made after this encounter. AMOX TR/POTASSIUM CLAVULANATE (AUGMENTIN ORAL) Take by mouth. 02/13/2010 added in this encounter Care Teams Registered Physical Therapist Relationship Specialty Start Date End Date Trell Pittman MD [address] [place] [address] PCP - General 04/10/09 documented as of this encounter
--- OUTSIDE RECORDS SUMMARY | 2024-03-30 21:51 | XMS_ITS | Encounter Summary ---
Author Organization [facility] Address [address] [place] [address] Care Team Providers Care Probation Counselor Name Role Phone Trell Pittman MD Primary Care Provider [phone] Reason for Visit * Reason Onset Date Comments Follow-up 12/29/2010 Encounter Details Date Type Department Care Team (Late st Contact Info) Description 12/29/2010 Telephone [facility] Pediatric Specialty Center - [facility] [address] [place] [address] Sherley Santana, LEAD NITRATE PROCESSOR [address] [phone] Follow-up Social History Tobacco Use Types Packs/Day [...] Telephone Encounter - Marga Calvillo RN - 01/05/2011 1110 EDT Spoke to Mom and she is now aware of the plan for a colo in addition to the egd/bronch Mom is concerned that the prep might not have results quickly enough as they have used the cleanout In the past and sometime is doesn't work until 2 days later. Will discuss w/ML to see if we need to adjust our prep plan * Telephone Encounter - Sherley Santana - 12/30/2010 0918 EDT She needs an EGD and colonoscopy along with the bronchoscopy. I sent a message in [employer] about this. * Telephone Encounter - Marga Calvillo RN - 12/29/[address] Franklin's office asked me to set up an egd bronch on [facility] Which we can do the Jan * Telephone Encounter - Harley Melton - 12/29/2010 1559 EDT Returning [place] call. documented in this encounter Plan of Treatment Upcoming Encounters Date Type Department Care Team (Late st Contact Info) Description 04/24/2024 15:30 EST Telemedicine [facility] Pediatric Pulmonary - [facility] [address] [place], [place] [phone] Lucy Rodgers MD [address] [place] [address] documented as of this encounter Visit Diagnoses Not on filedocumented in this encounter Care Teams Probation Counselor Relationship Specialty Start Date End Date Trell Pittman MD [address] [place] [address] PCP - General 04/10/09 documented as of this encounter
--- OUTSIDE RECORDS SUMMARY | 2024-03-30 21:51 | XMS_ITS | Encounter Summary ---
Author Organization [facility] Address [address] [place] [address] Care Team Providers Care Boiler Testing Technician Name Role Phone Trell Pittman MD Primary Care Provider [phone] [phone] Encounter Details Date Type Department Care Team (Late st Contact Info) Description 02/06/2010 Results Only [facility] - [address] [phone] James Franklin MD [address] [place] [phone] Social History Tobacco Use Types Packs/Day [...] 04/24/2024 15:30 EST Telemedicine [facility] Pediatric Pulmonary - [address] [phone] Lucy Rodgers MD [address] [place] [phone] documented as of this encounter Procedures Procedure Name Priority Date/Time Associated Diagnosis Comments IR PICC - REFER TO IV THERAPY FIRST 02/11/2010 12:45 EDT documented in this encounter Results * IR PICC - REFER TO IV THERAPY FIRST (02/11/2010 12:45 EDT) Anatomical Region Laterality Modality Other 02/11/2010 12:4 5 EDT 03/03/2010 8:41 EDT Narrative 03/03/2010 8:41 EDT Examination: PICC line placement performed on February 11, 2010. Clinical History: Primary ciliary dyskinesia with lower respiratory infection requiring antibiotics. Procedure: Informed consent was obtained after risks and benefits of the procedure were discussed with the patient's parents. Sedation was provided by the anesthesia service. The patient's left arm was sterilely prepped and draped. Left basilic vein was patent by ultrasound examination. The left basilic vein was accessed using real-time ultrasound guidance with lidocaine local anesthesia. A permanent recording of the ultrasound guidance was placed in the patient's record. The access needle was exchanged over a guidewire for a peel-away sheath using fluoroscopic guidance. A dual-lumen PICC line was then cut to length and threaded through the peel-away sheath and its tip positioned at the RA/SVC junction using fluoroscopic guidance. The PICC was then secured in place and a sterile dressing applied. ?? The procedure was performed by Almas Swartz, physician assistant elementary teacher in interventional radiology. Dr. Lau, the attending physician, supervised the procedure. Impression: 1. Left-sided PICC line placement using ultrasound and fluoroscopic guidance. Addendum Begins This report has been addended to reflect the correct final signer. ?? The text has not been altered. ?? Addendum Ends Procedure Note Johnathan Lau MD - 03/03/2010 Examination: PICC line placement performed on February 11, 2010. Clinical History: Primary ciliary dyskinesia with lower respiratory infection requiring antibiotics. Procedure: Informed consent was obtained after risks and benefits of the procedure were discussed with the patient's parents. Sedation was provided by the anesthesia service. The patient's left arm was sterilely prepped and draped. Left basilic vein was patent by ultrasound examination. The left basilic vein was accessed using real-time ultrasound guidance with lidocaine local anesthesia. A permanent recording of the ultrasound guidance was placed in the patient's record. The access needle was exchanged over a guidewire for a peel-away sheath using fluoroscopic guidance. A dual-lumen PICC line was then cut to length and threaded through the peel-away sheath and its tip positioned at the RA/SVC junction using fluoroscopic guidance. The PICC was then secured in place and a sterile dressing applied. The procedure was performed by Almas Swartz, physician assistant elementary teacher in interventional radiology. Dr. Lau, the attending physician, supervised the procedure. Impression: 1. Left-sided PICC line placement using ultrasound and fluoroscopic guidance. Addendum Begins This report has been addended to reflect the correct final signer. The text has not been altered. Addendum Ends us James Franklin MD IM IR ORDERABLES Edited documented in this encounter Visit Diagnoses Not on filedocumented in this encounter Care Teams Boiler Testing Technician Relationship Specialty Start Date End Date Trell Pittman MD [address] [place] [address] PCP - General 04/10/09 documented as of this encounter
--- OUTSIDE RECORDS SUMMARY | 2024-03-30 21:51 | XMS_ITS | Encounter Summary ---
Author Organization [facility] Address [address] [place] [address] Care Team Providers Care Hazardous Substances Engineer Name Role Phone Trell Pittman MD Primary Care Provider [phone] Reason for Visit * Reason Onset Date Comments Prior Auth, Medication 08/26/2010 prevacid Encounter Details Date Type Department Care Team (Late st Contact Info) Description 08/26/2010 Telephone [facility] Pediatric Specialty Center - Main [place] [address] [place], [place] [address] Sherley Santana, SOLE CUTTER [address] [phone] Prior Auth, Medication (prevacid) Social History Tobacco Use Types Packs/Day Years [...] Date End Date PREVACID 30 mg capsule Take 1 Cap by mouth daily for 90 days. 90 Cap 2 08/27/2010 04/19/2011 documented in this encounter Miscellaneous Notes * Telephone Encounter - Pj Lobato - 08/26/2010 1630 EDT I have let Marga know that I can not do the auth for the BID Prevacid she has to have had a 30 day trail of once daily Pj * Telephone Encounter - Michelle Hay - 08/26/2010 1620 EDT Needs a PA for the Prevacid documented in this encounter Plan of Treatment Upcoming Encounters Date Type Department Care Team (Late st Contact Info) Description 04/24/2024 15:[address] [facility] Pediatric Pulmonary - [address] [phone] Lucy Rodgers MD [address] [place] [phone] documented as of this encounter Visit Diagnoses Not on filedocumented in this encounter Discontinued Medications Medication Sig Discontinue Reason Start Date End Da te lansoprazole (PREVACID) 30 mg capsule Take 1 Cap by mouth 2 times daily for 30 days. 08/22/2010 08/27/2010 documented as of this encounter Care Teams Hazardous Substances Engineer Relationship Specialty Start Date End Date Trell [place] [address] PCP - General 04/10/09 documented as of this encounter
--- OUTSIDE RECORDS SUMMARY | 2024-03-30 21:51 | XMS_ITS | Encounter Summary ---
Author Organization [facility] Address [address] [place] [address] Care Team Providers Care Renal Technician Name Role Phone Trell Pittman MD Primary Care Provider [phone] Encounter Details Date Type Department Care Team (Late st Contact Info) Description 05/19/[address] [phone] James Franklin MD [address] [place] [phone] Social History Tobacco Use Types Packs/Day [...] Contact Info) Description 04/24/2024 15:30 EST Telemedicine [address] [phone] Lucy Rodgers MD [address] [place] [phone] documented as of this encounter Visit Diagnoses Not on filedocumented in this encounter Care Teams Renal Technician Relationship Specialty Start Date End Date Trell Pittman MD [address] [place] [address] PCP - General 04/10/09 documented as of this encounter
--- OUTSIDE RECORDS SUMMARY | 2024-03-30 21:51 | XMS_ITS | Encounter Summary ---
Author Organization [facility] Address [address] [place] [address] Care Team Providers Care Needle Loom Weaver Name Role Phone Trell Pittman MD Primary Care Provider +1 [phone] Reason for Visit * Reason Comments Follow-up Encounter Details Date Type Department Care Team (Late st Contact Info) Description 09/30/2010 11:30 EDT Office Visit [facility] ENT- [address] [address] Felix Spears MD [address] [place] [address], [address] [place] [address] Unspecified chronic suppurative otitis media [...] Progress Notes * Felix Spears MD - 10/02/2010 1131 EDT DIVISION OF OTOLARYNGOLOGY PROGRESS/FOLLOWUP NOTE - 09/30/2010 CHIEF COMPLAINT: Recurrent ear infections. SUBJECTIVE: The patient has had an ear infection, was seen recently, without drainage but with pain. It was associated with an upper respiratory infection. It was treated successfully with antibiotics and is now resolved. It was mild to moderate in severity and lasted 3 to 4 days. OBJECTIVE: Alert, cooperative female, well nourished, in no distress today. Voice is normal today. Head and face inspection and palpation are both normal. Salivary glands are normal today. Facial strength is normal today. External ears and nose all normal today. Eyes are normal. Otoscopy: Ear canals, eardrums and middle ear spaces are normal bilaterally with functioning Maru T-tubes bilaterally.Nose: Midline septum, normal turbinates without discharge. Lips, teeth and gums all normal for her age. Oral cavity. Oropharynx is normal with 2+ tonsils. Palpation of the neck reveals no adenopathy or masses. Thyroid is normal today. Audiogram by Jamar Kemp showed normal hearing and high volume f lat tympanograms. ASSESSMENT: Recurrent otitis media, chronic serous otitis media, normal tube check, normal hearing. PLAN: Follow up 6 months. Electronically Signed by Felix Spears MD 10/02/2010 11:31 Felix Spears MD - Felix Spears MD - Job ID: Doc ID: [id number] [facility] Doc ID: [id number] cc: Trell Pittman MD-enclose audiogram* * Felix Spears MD - 09/30/2010 1254 EDT This office note has been dictated. documented in this encounter Procedure Notes * Photographer Helper, Scan - 10/16/2010 0959 EDTAssociated Order(s): PROCEDURE REPORTS - SCANNED documented in this encounter Plan of Treatment Upcoming Encounters Date Type Department Care Team (Late st Contact Info) Description 04/24/2024 15:30 EST Telemedicine [facility] Pediatric Pulmonary - [facility] [address] [place], [place] [id number] Lucy Rodgers MD [address] [place] [phone] Scheduled Orders Name Type Priority Associated Diagnoses Orde r Schedule HEARING EVALUATION Audiology Routine Unspecified chronic suppurative otitis media Ordered: 09/30/2010 documented as of this encounter Procedures Procedure Name Priority Date/Time Associated Diagnosis Comments PROCEDURE REPORTS - SCANNED 10/16/2010 9:59 EDT documented in this encounter Results * PROCEDURE REPORTS - SCANNED (10/16/2010 9:59 EDT) 10/16/2010 9:59 EDT Narrative Procedure Note Photographer Helper, Scan - 10/16/2010 9:59 EDT us Scan Photographer Helper PROCEDURE/MINOR SURGICAL ORDE RABLES Final Result documented in this encounter Visit Diagnoses Diagnosis Unspecified chronic suppurative otitis media- Primary documented in this encounter Care Teams Needle Loom Weaver Relationship Specialty Start Date End Date Trell Pittman MD [address] [place] [address] PCP - General 04/10/09 documented as of this encounter
--- OUTSIDE RECORDS SUMMARY | 2024-03-30 21:51 | XMS_ITS | Encounter Summary ---
Author Organization [facility] Address [address] [place] [address] Care Team Providers Care Motor Electrician Name Role Phone Trell Pittman MD Primary Care Provider [phone] [phone] Reason for Visit * Reason Comments Post-OP Follow Up Encounter Details Date Type Department Care Team (Late st Contact Info) Description 07/29/2010 10:40 EDT Office Visit [facility] ENT- [address] [address] Felix Spears MD [address] [place] [address], [address] [place] [address] Simple or unspecified chronic serous otitis media; Unspecified chronic suppurative otitis media Social History [...] Progress Notes * Felix Spears MD - 07/30/2010 1401 EDT DIVISION OF OTOLARYNGOLOGY PROGRESS/FOLLOWUP NOTE - 07/29/2010 CHIEF COMPLAINT: Recurrent otitis media, chronic serous otitis media. SUBJECTIVE: The patient has had no troubles since last visit. Did have some ear drainage after her tubes. Her hearing seems better. She does complain of some intermittent ear pain. OBJECTIVE: Alert, cooperative female, well nourished, in no distress. Eardrums, middle ear spaces, ear canals are normal with functioning Maru T tubes bilaterally. Tympanograms: High volume and flatbilaterally with normal hearing. Testing by Jamar Kemp. ASSESSMENT: Recurrent otitis media, chronic serous otitis media, normal tube check. PLAN: Follow up 6 months. Electronically Signed by Felix Spears MD 07/30/2010 14:00 Felix Spears MD - Felix Spears MD - [facility] Job ID: Doc ID: [id number] [facility] Doc ID: [id number] cc: Trell Pittman MD * Felix Spears MD - 07/29/2010 1304 EDT This office note has been dictated. documented in this encounter Procedure Notes * Inpatient, Physician - 08/14/2010 1513 EDTAssociated Order(s): PROCEDURE REPORTS - SCANNED documented in this encounter Miscellaneous Notes * Scanned Note-Null - FUR COMBER, SCAN 2 - 09/09/2011 0836 EDT documented in this encounter Plan of Treatment Upcoming Encounters Date Type Department Care Team (Late st Contact Info) Description 04/24/2024 15:30 EST Telemedicine [facility] Pediatric Pulmonary [address] [place] [phone] Lucy Rodgers MD [address] [place] [phone] Scheduled Orders Name Type Priority Associated Diagnoses Orde r Schedule HEARING EVALUATION Audiology Routine Simple or unspecified chronic serous otitis media Unspecified chronic suppurative otitis media Ordered: 07/29/2010 documented as of this encounter Procedures Procedure Name Priority Date/Time Associated Diagnosis Comments PROCEDURE REPORTS - SCANNED 08/14/2010 15:13 EDT documented in this encounter Results * PROCEDURE REPORTS - SCANNED (08/14/2010 15:13 EDT) 08/14/2010 15:1 3 EDT Narrative Procedure Note Inpatient, Physician - 08/14/2010 15:13 EDT Physician Inpatient MD PROCEDURE/MINOR SURGICAL ORDERABLES Final Result documented in this encounter Visit Diagnoses Diagnosis Simple or unspecified chronic serous otitis media Unspecified chronic suppurative otitis media documented in this encounter Care Teams Motor Electrician Relationship Specialty Start Date End [place] [address] PCP - General 04/10/09 documented as of this encounter
--- OUTSIDE RECORDS SUMMARY | 2024-03-30 21:51 | XMS_ITS | Encounter Summary ---
Author Organization [facility] Address [address] [place] [address] Care Team Providers Care Aircraft Refueler Name Role Phone Trell Pittman MD Primary Care Provider [phone] [phone] Reason for Visit * Reason Onset Date Comments Prior Auth, Other (i.e. radiology, etc.) 011 Encounter Details Date Type Department Care Team (Late st Contact Info) Description 06/12/2010 Telephone [facility]- [address] [address] Felix Spears MD [address] [facility], [address] [place] [address] Prior Auth, Other (i.e. radiology, etc.) Social History Tobacco Use Types Packs/Day Years [...] encounter Miscellaneous Notes * Telephone Encounter - Ines Mays - 06/12/2010 1006 EST PC PLUS - [id number] DOS 06.27.10 TYMPS, CPT 96745 AUTH NOT REQUIRED OP documented in this encounter Plan of Treatment Upcoming Encounters Date Type Department Care Team (Late st Contact Info) Description 04/24/2024 15:30 EST Telemedicine [facility] Pediatric Pulmonary - [facility] [address] [place], [place] [address] Lucy Rodgers MD [address] [place] [phone] documented as of this encounter Visit Diagnoses Not on filedocumented in this encounter Care Teams Aircraft Refueler Relationship Specialty Start Date End Date Trell [place] [address] PCP - General 04/10/09 documented as of this encounter
--- OUTSIDE RECORDS SUMMARY | 2024-03-30 21:51 | XMS_ITS | Encounter Summary ---
Author Organization [facility] Address [address] [place] [address] Care Team Providers Care Noc Engineer Name Role Phone Trell Pittman MD Primary Care Provider [phone] [phone] Reason for Visit * Reason Onset Date Comments Appointment Related 07/11/2010 Encounter Details Date Type Department Care Team (Late st Contact Info) Description 07/11/2010 Telephone [facility] Specialty Center - [address] [address] Sherley Santana, OTM CONSULTANT [address] [phone] Appointment Related Social History Tobacco Use Types [...] Telephone Encounter - Marga Calvillo RN - 07/11/2010 1211 EST Mom can't keeo our apt and no npv available so we rescheduled * Telephone Encounter - Harley Melton. - 07/11/2010 1120 EST Would like to see if anything can be done to have her seen on July 29 as she will be here for 2 other appointments. documented in this encounter Plan of Treatment Upcoming Encounters Date Type Department Care Team (Late st Contact Info) Description 04/24/2024 15:30 EST Telemedicine [facility] Pediatric Pulmonary - [address] [phone] Lucy Rodgers MD [address] [place] [phone] documented as of this encounter Visit Diagnoses Not on filedocumented in this encounter Care Teams Noc Engineer Relationship Specialty Start Date End Date Trell Pittman MD [address] [place] [address] PCP - General 04/10/09 documented as of this encounter
--- OUTSIDE RECORDS SUMMARY | 2024-03-30 21:51 | XMS_ITS | Encounter Summary ---
Author Organization [facility] Address [address] [place] [address] Care Team Providers Care [facility] Sales Name Role Phone Trell Sanon MD Primary Care Provider [phone] [phone] Reason for Visit * Reason Comments Cough Nasal Congestion Encounter Details Date Type Department Care Team (Late st Contact Info) Description 05/23/2010 11:00 EST Office Visit [facility] Pediatric Pulmonary - [facility] [place] [address] [place] [address] Rashmi Tabares, ELECTRICAL CONTROLS DESIGNER [address] [place] [phone] Primary ciliary dyskinesia; Asthma Social History Tobacco Use Types Packs/Day [...] Sign Reading Time Taken Comments Blood Pressure 105/57 05/23/2010 1044 EST Pulse 97 05/23/2010 1044 EST Temperature - - Respiratory Rate 24 05/23/2010 1044 EST Oxygen Saturation 100% 05/23/2010 1044 EST Inhaled Oxygen Concentration - - Weight 18.6 kg (41 lb 0.1 oz) 05/23/2010 1044 ES T Height 116.6 cm (3' 9.91) 05/23/2010 1044 EST Qtmeci-aqd-Yardpb Percentile 7.86% 05/23/2010 1 044 EST Growth Chart: [facility] (Girls, 2- 20 Years) Body Mass Index 13.68 05/23/2010 1044 EST Body Mass Index Percentile 8.18% 05/23/2010 104 4 EST Growth Chart: [facility] (Girls, 2- 20 Years) documented in this encounter Mental Status * Because of a physical, mental, or emotional condition, do you have serious difficulty concentrating, remembering, or making decisions? (5 years old or older) Answer Entry Date Author Yes 02/13/2010 0:00 Mohit Tinajero RN documented in this encounter Progress Notes * Rashmi Tabares NP - 05/23/2010 1055 EST Images from the original note were not included. Pediatric Pulmonology James Franklin M.D., Hayden Pearce, [place] [address] 05/23/2010 TRELL SANON MD [facility] [id number] Chief complaint: Rosario is a 4 y.o. old female with primary ciliary dyskinesia and bronchiectasis.She is here in follow up after a hospital admission in February. Parents feel she is doing well and had a great March and most of April. Currently she is treated with Augmentin twice daily for an URI and has been treated a week so far. She seems much better per parents. Rosario is accompanied by her parent(s) and brother who contributed to the history. Subjective: Since the last visit, Rosario has been symptomatic with a current URI and is on antibiotics. She isclearing this respiratory infection without any issues currently. She is tolerating hypertonic saline nebulized twice daily but has been out of this for just over a week. She has been taking her inhaled steroid and using albuterol at school and her acapella at school. She has had cough during the day and night with this recent respiratory illness; prior to the URI she was not coughing during the day, night or with activity. She has not had wheezing, increased work of breathing, difficulty breathing, shortness of breath, turning blue, not breathing, chest tightness, chest pain, symptoms with exercise and limitations due to exercise. Her sleep is better. There are not episodes of apnea, labored breathing and cyanosis. Seasonal Influenza Vaccine: Already received. Airway clearance: vest and acapella 3 times a day. Rosario is not using Pulmozyme. She is using hypertonic saline. Gastrointestinal/Nutrition: Rosario's appetite is increased. Her diet is healthy diet in general. Supplemental nutrition is not indicated at this time . She has about 1 stools per day. Stools are hard. She is taking Miralax with variable results. Gastroesophageal reflux symptoms including wet burps, sensation of reflux, sour taste, nausea, vomiting are absent. Her mother stopped Prevacid this past month and has seen no change in Rosario's symptoms. Rosario does have abdominal discomfort, constipated stools and flatulence almost daily. Otolaryngology: Rosario has had watery eyes, rhinorrhea, congestion, ear pain and sore throat. Allergy related symptoms are watery eyes, clear rhinorrhea and throat clearing. She is not using sinus rinse kits; mother states it is too hard to get her to use them. General Health: Her overall behavior has been normal, playful. In regard to activity, she is very active. Rosario has missed a lot of days of school due to illness. Mom does feel that the school is workingwith her and things are going better. Environmental Exposure: Heating System: oil and wood stove Pets: 1 cat(s) and 2 dog(s) Dust Mite Control: Dust mite covers in use. Carpets: none in bedrooms. Environmental Tobacco Exposure: No REVIEW OF SYSTEMS: Positive for: runny nose, congestion, cough, constipation Negative for: fever, chills, fatigue, sore throat, shortness of breath, wheezing, abdominal pain, vomiting, diarrhea, headache, rash A complete review [...] Allergies Father ??? * Brother lactose intolerant Current outpatient prescriptions Medication Sig Dispense Refill ??? levalbuterol (XOPENEX HFA) 45 mcg/Actuation inhaler Inhale 2 Puffs as directed every 4 hours asneeded. ??? fluticasone (FLOVENT) 110 mcg/Actuation inhaler Inhale 2 Puffs as directed 2 times daily. ??? Sodium Chloride (HYPER-BINH) 7 % Nebu Inhale 4 mL as directed 2 times daily. ??? KETOTIFEN FUMARATE (ALAWAY OPHT) Apply to eye. ??? AMOX TR/POTASSIUM CLAVULANATE (AUGMENTIN ORAL) Take by mouth. ? ? lactobacillus acidophilus & bulgar (LACTINEX) 1 million cell Chew Take 1 Tab by mouth 3 times daily with meals. 50 Tab 0 ??? azithromycin (ZITHROMAX) 200 mg/5 mL suspension Take 5 mL by mouth three times a week. Take 1 tsp by mouth (5ml) three times per week (M,W, F) 60 mL 2 ??? acetaminophen (TYLENOL) 160 mg/5 mL solution Take 5.5 mL by mouth every 4 hours as needed for Pain for 4 doses. 30 mL 0 ??? POLYETHYLENE GLYCOL 3350 (MIRALAX ORAL) Take 0.5 Caps by mouth daily as needed. ??? Multivitamins with Minerals Tab Take 1 Tab by mouth three times a week. Allergies Allergen Reactions ??? Penicillins Rash ??? Amoxicillin Rash ??? Milk Nausea And Vomiting And itchy, rash, nasal congestion ??? Adhesive Tape Other (See Comments) blisters Pediatric History Patient Guardian Status ??? Mother: LUCY HART ??? Father: JORGE ALBERTO HART Other Topics Concern ??? Lives With Parent(s) Yes ??? Enrolled In School Yes ??? Doing Well In School Yes ??? Iep/504 Plan No Social History Narrative ??? No narrative on file Objective Data: BP 105/57 Pulse 97 Resp 24 Ht 116.6 cm (45.91) Wt 18.6 kg (41 lb 0.1 oz) SpO2 100% Wt Readings from Last 5 Encounters: 05/23/2010 18.6 kg (41 lb 0.1 oz) (45.69%) 02/11/2010 19.051 kg (42 lb) (61.37%) 12/06/2009 18.6 kg (41 lb 0.1 oz) (61.08%) 04/10/2009 17.6 kg (38 lb 12.8 oz) (68.80%) 11/26/2008 16.6 kg (36 lb 9.5 oz) (66.44%) General Appearance: well appearing, alert, no acute distress Head: normocephalic, atraumatic Eye: no injection, no discharge, PERRLA Ear: right: white scar visible, left: tympanostomy tube in place, mildly distorted landmarks. Nose: clear rhinorrhea, dried mucus, mucosal erythema, [...] PFTs: PFTS (Before Albuterol Treatment) FVC (L): 1.53 liters FVC % Pred: 111 FEV1 (L): 1.28 liters FEV 1 % Pred: 100 FEF 25-75% (L/scc): 1.76 FEF 25-75% Pred: 108 FEV-1/FVC: 84 PFTS (After Albuterol Treatment) FVC (L) (After Albuterol): 1.55 liters FVC % Pred (After Albuterol): 112 FEV1 (L) (After Albuterol): 1.33 liters FEV 1 % Pred (After Albuterol): 103 FEF 25-75% (L/scc) (After Albuterol): 1.57 FEF 25-75% Pred (After Albuterol): 96 FEV-1/FVC (After Albuterol): 86 Culture Results: No results found for this or any previous visit. No results found for this or any previous visit. Assessment and Plan: Rosario is 4 y.o. old female with PCD, asthma who is currently improving on Augmentin. Parents bothfeel that she has had her best March and April this year. Her lung function (FEV1) is improving and she worked hard on reproducable efforts. These pulmonary numbers are her best, and she did not have any significant evidence of hyperreactivity to bronchodilator. Rosario's nutritional status is currently concerning. We will be referring to Pediatric GI for constipation, [place] and poor weight gain. The following plan was discussed with her parent(s): 1. Continue medications as above. No medication changes today. 2. Nutrition: refer to Pediatric GI. Mom states that they are currently working with a shaker plate operator. 3. Finish antibiotic. 4. Restart Hyper-Binh nebulized twice daily; prescription was written on Children with Special Health Needs form today. 5. continue airway clearance: 3 times daily by vest and acapella. 6. Order new Acapella for home and school. 7. Discussed the following exercise recommendations: continue active lifestyle. 8. Addressed environmental tobacco smoke exposure. 9. Studies today include: spirometry. 10. Follow up in 2 months. Seasonal Influenza Vaccine: Already received. Please contact me with questions or concerns regarding Rosario's care. Sincerely, Rashmi Tabares NP documented in this encounter Plan of Treatment Upcoming Encounters Date Type Department Care Team (Late st Contact Info) Description 04/24/2024 15:30 EST Telemedicine [facility] Pediatric Pulmonary - [facility] [address] [place] [address] Lucy Rodgers MD [address] [place] [address] documented as of this encounter Visit Diagnoses Diagnosis Primary ciliary dyskinesia Situs inversus Asthma Unspecified asthma documented in this encounter Discontinued Medications Medication Sig Discontinue Reason Start Date End Da te LANSOPRAZOLE (PREVACID ORAL) Take 15 mg by mouth 2 times daily. Therapy completed 05/23/2010 FLUTICASONE PROPIONATE (FLOVENT HFA INHL) Inhale 2 Puffs as directed 2 times daily. Duplicate Therapy 05/23/2010 LEVALBUTEROL HCL (XOPENEX INHL) Inhale 2 Puffs as directed 2 times daily. Duplicate Therapy 05/23/2010 documented as of this encounter Historical Medications * This list may reflect changes made after this encounter. Sodium Chloride (HYPER-BINH) 7 % Nebu Inhale 4 mL as directed daily. 07/29/2010 12/22/2010 fluticasone (FLOVENT) 110 mcg/Actuation inhaler Inhale 2 Puffs as directed 2 times daily. 05/23/2010 12/22/2010 levalbuterol (XOPENEX HFA) 45 mcg/Actuation inhaler Inhale 2 Puffs as directed every 4 hours as needed. 02/04/2011 added in this encounter Orders Equipment Count Last Ordered Date First Orde red Date ACAPELLA DEVICE 1 05/23/2010 documented in this encounter Care Teams [facility] Sales Relationship Specialty Start Date End Date Trell [place] [address] PCP - General 04/10/09 documented as of this encounter
--- OUTSIDE RECORDS SUMMARY | 2024-03-30 21:51 | XMS_ITS | Encounter Summary ---
Author Organization [facility] Address [address] [place] [address] Care Team Providers Care Experimental Worker Name Role Phone Trell Pittman MD Primary Care Provider [phone] [phone] Reason for Visit * Reason Onset Date Comments Sinusitis 05/13/2010 Encounter Details Date Type Department Care Team (Late st Contact Info) Description 05/13/2010 Telephone [facility] Pediatric Pulmonary [facility] [address] [place] [address] James Franklin MD [address] [place] [address] Sinusitis Social History Tobacco Use [...] encounter Miscellaneous Notes * Telephone Encounter - Mely Shanel Brooks - 05/13/2010 1501 EST I spoke to mom. Encouraged her to call with any future concerns. * Telephone Encounter - Harley Melton - 05/13/2010 1404 EST Calling to report that she is being treated for chest/sinus infection and what she has been put on. Also, would like to see if she can be squeezed into next weeks schedule. Please call. documented in this encounter Plan of Treatment Upcoming Encounters Date Type Department Care Team (Late st Contact Info) Description 04/24/2024 15:30 EST Telemedicine [facility] Pediatric Pulmonary - [address] [phone] Lucy Rodgers MD [address] [place] [phone] documented as of this encounter Visit Diagnoses Not on filedocumented in this encounter Care Teams Experimental Worker Relationship Specialty Start Date End Date Trell Pittman MD [address] [place] [address] PCP - General 04/10/09 documented as of this encounter
--- OUTSIDE RECORDS SUMMARY | 2024-03-30 21:51 | XMS_ITS | Encounter Summary ---
Author Organization [facility] Address [address] [place] [address] Care Team Providers Care High School Tutor Name Role Phone Trell Pittman MD Primary Care Provider [phone] Reason for Visit * Reason Onset Date Comments Other 05/28/2010 Acapella machine s Encounter Details Date Type Department Care Team (Late st Contact Info) Description 05/28/2010 Telephone [facility] Pediatric Pulmonary - [facility] [address] [place] [address] James Franklin MD [address] [place] [address] Other (Acapella machines) Social History Tobacco Use Types Packs/Day Years [...] Telephone Encounter - Eloisa Arellano - 05/28/2010 1255 EST She received an envelope with an order for two acapella machines. They have a high and low flow machine. Do you know which one Rosario needs? documented in this encounter Plan of Treatment Upcoming Encounters Date Type Department Care Team (Late st Contact Info) Description 04/24/2024 15:30 EST Telemedicine [facility] Pediatric Pulmonary - [facility] [address] [place], [place] [phone] Lucy Rodgers MD [address] [place] [phone] documented as of this encounter Visit Diagnoses Not on filedocumented in this encounter Care Teams High School Tutor Relationship Specialty Start Date End Date Trell Pittman MD [address] [place] [address] PCP - General 04/10/09 documented as of this encounter
--- OUTSIDE RECORDS SUMMARY | 2024-03-30 21:51 | XMS_ITS | Encounter Summary ---
Author Organization [facility] Address [address] [place] [address] Care Team Providers Care Fish Roe Technician Name Role Phone Trell Sanon MD Primary Care Provider [phone] Reason for Referral * Consult (Routine) - Closed Specialty Diagnoses / Procedures [facility] Referred To Contact Diagnoses Bronchiectasis with acute exacerbation (HCC-CMS) Primary ciliary dyskinesia Melody Trujillo MD Phone: tel: fax: Referral ID Status Reason Start Date Expiration Date V isits Requested Visits Authorized [id number] Closed Specialty Services Required 02/13/2010 1 1 Question Answer Reason for Request: 4 yo with primary ciliary dyskenisia lung disease - needs IV antibiotics for pneumonia infection [facility] Referral - Assessment: IV Therapy, Medication Compliance Comments Needs dressing changes for central line and IV antibiotic administration Encounter Details Date Type Department Care Team (Late st Contact Info) Description 02/11/2010 8:51 EDT - 02/14/2010 14:43 EDT Hospital Encounter [facility] [address] [place] [address] Albin Child MD [address] [place] [address] Bronchiectasis with acute exacerbation (HCC-[facility]); Primary ciliary dyskinesia Discharge Disposition: Home or [...] Sign Reading Time Taken Comments Blood Pressure 82/51 02/14/201030 EDT Pulse 92 02/14/2010 1300 EDT Temperature 36.7 ??C (98.1 ??F) 02/14/2010929 EDT Respiratory Rate 22 02/14/2010 1300 EDT Oxygen Saturation 100% 02/14/2010929 EDT Inhaled Oxygen Concentration - - Weight 19.1 kg (42 lb) 02/11/2010906 EDT Height - - Body Mass Index - - documented in this encounter Mental Status * Because of a physical, mental, or emotional condition, do you have serious difficulty concentrating, remembering, or making decisions? (5 years old or older) Answer Entry Date Author Yes 02/13/2010 0:00 EDT Mohit Yusuf RN documented in this encounter Discharge Summaries * Efrain Gonzales MD - 02/13/2010 1708 EDT Images from the original note were not included. Discharge Summary Note Name: Tulio Todd Hart : 2005 Primary Care Provider: Trell Sanon Admit Date: 02/11/2010 Discharge Date: 02/14/2010 PMH: Past Medical History Diagnosis Date ??? OM (otitis media) ??? Asthma Always rattley per mom Medications Prior to this Admission: No current facility-administered medications on file prior to encounter. Current outpatient prescriptions ordered prior to encounter Medication Sig Dispense Refill ??? acetaminophen (TYLENOL) 160 mg/5 mL solution Take 5.5 mL by mouth every 4 hours as needed for Pain for 4 doses. 30 mL 0 ??? POLYETHYLENE GLYCOL 3350 (MIRALAX ORAL) Take 0.5 Caps by mouth daily. ??? FLUTICASONE PROPIONATE (FLOVENT HFA INHL) Inhale 2 Puffs as directed 2 times daily. ??? LEVALBUTEROL HCL (XOPENEX INHL) Inhale 2 Puffs as directed 2 times daily. ??? LANSOPRAZOLE (PREVACID ORAL) Take 15 mg by mouth 2 times daily. ??? AZITHROMYCIN (ZITHROMAX ORAL) Take 1 tsp by mouth SEE ADMIN INSTRUCTIONS. Takes M-W-F ??? Multivitamins with Minerals Tab Take 1 Tab by mouth three times a week. Allergies: Allergies Allergen Reactions ??? Penicillins Rash ??? Amoxicillin Rash ??? Milk Nausea And Vomiting And itchy, rash, nasal congestion ??? Adhesive Tape Other (See Comments) blisters Admit Weight: 19.051 kg Discharge Weight:19.051 kg Discharge Summary Chief Complaint/Reason for Admission: pulmonary exacerbation resistant to outpatient antibiotic treatment Principal/Final Diagnosis: Pneumonia secondary to STREPTOCOCCUS PNEUMONIAE and asthma Problem List While In Hospital: Patient Active Problem List Diagnoses Code ??? Bronchiectasis with Acute Exacerbation 494.1 ??? Chronic Otitis Media 382.9G ??? Simple or Unspecified Chronic Serous Otitis Media 381.10 ??? 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 Primary ciliary dyskinesia 759.3D ??? Asthma 493.90AE ??? GERD (gastroesophageal reflux disease) 530.81S Principal Procedure: Bronchoscopy and PICC line placement Hospital Course: Tulio Hart is a 4 y.o. female with presumed diagnosis of primary ciliary dyskinesia (many sinusitis and OM infections) and history of asthma and gerd who presents with a 4 week history of cough and wheeze refractory to medication.?? She has seen her PCP Dr. Sanon who has tried a 15 day course of augmentin and a few days of omnicef with no improvement.?? The cough is productive with clearish-yellow discharge and occurs during the day and recently has been noted at night time.?? Over the past 2 days she has had difficulty sleeping, but normal UOP, energy level and appetite.?? + rhinorrhea (green discharge), constipation (which has recently switched to diarrhea after increasing her mirolax dose).?? The mother denies fever, N/V, ear pain, sore throat.? She has been seen by Dr. Wade at allergy clinic who is treating her for possible milk allergy and asthma.??She goes to kindergarten and has no recent sick contacts. Her hospital problems will be summarized below by problem: Primary ciliary dyskinesia: A PICC line was placed on 02/11 and bronchoscopy was performed to investigate pulmonary exacerbation. Cystic fibrosis had previously been ruled out with normal sweat chloride and no CFTR mutations identified.??On 02/12 she was started on vest PT for airway clearance 4x perday and hypertonic saline 7% BID which she toleralted well and script were given with home health follow-up to continue for 2 weeks. She was also given her pneumovac 23-valent immunization on 02/13. Pneumonia secondary to probable penicillin resistant STREPTOCOCCUS PNEUMONIAE: Bronchoscopy on 02/11showed diffuse purulent secretions in all lobes with Sputum ex bronchoalveolar lavage growing Greater than 100,000 CFU/ml STREPTOCOCCUS PNEUMONIAE Possibly penicillin resistant, results to be confirmed. She was started on 75mg/kg IV ceftriaxone BID on 02/11 and tolerated the antibiotic well with improving cough and mucous production. VNA orders were placed for continued daily 75mg/kg ceftriaxone [id number] coverage until 02/25 (total of 14 days) with daily chest PT with the vest and 7% hypertonic saline with lactobacillis started on 02/14 with plan to return to pulm clinic with Dr. Child on 02/26for follow-up and PICC line removal. Asthma: Diffuse expiratory wheezes were noted on initial exam, so a regimen of Flovent 110 mcg 2p BID??and albuterol 4 times per day was given during the hospitalization. PFT's on 02/13 showed improved of FEV1 by 34% after administration of bronchodilator. She should continue her flovent and albutero lat home GERD: stable on home medication of Prevacid 30mg BID Low Hb and Hct: Hb 11.1 and Hct 31.2 with nm iron studies on 02/13. So possibly an anemia of chronicdisease. Continue to monitor as OP. Medications at Discharge: Medications prior to admission that will be resumed at discharge: Medication Sig Dispense Refill ??? acetaminophen (TYLENOL) 160 mg/5 mL solution Take 5.5 mL by mouth every 4 hours as needed for Pain for 4 doses. 30 mL 0 ??? POLYETHYLENE GLYCOL 3350 (MIRALAX ORAL) Take 0.5 Caps by mouth daily. ??? FLUTICASONE PROPIONATE (FLOVENT HFA INHL) Inhale 2 Puffs as directed 2 times daily. ??? LEVALBUTEROL HCL (XOPENEX INHL) Inhale 2 Puffs as directed 2 times daily. ??? LANSOPRAZOLE (PREVACID ORAL) Take 15 mg by mouth 2 times daily. ??? AZITHROMYCIN (ZITHROMAX ORAL) Take 1 tsp by mouth SEE ADMIN INSTRUCTIONS. Takes M-W-F ??? Multivitamins with Minerals Tab Take 1 Tab by mouth three times a week. New medications prescribed at discharge: Medication Sig Dispense Refill ? ? lactobacillus acidophilus & bulgar (LACTINEX) 1 million cell Chew Take 1 Tab by mouth 3 times daily with meals. 50 Tab 0 ??? sodium chloride 7 % Take 4 mL by nebulization 2 times daily. 150 mL 0 ??? sodium chloride sinus rinse Pack by Nasal route daily. Use in each nostril daily 1 Bottle 0 Relevant Studies at Discharge: Pulmonary Function tests (FVC, FEV, FEF 25-75% predicted) at discharge: pre- bronch (57%, 55%, 59%) and post-bronch (94%, 89%, 113%) Sputum ex bronchoalveolar lavage: -Bacteria Culture shows: Greater than 100,000 CFU/ml STREPTOCOCCUS PNEUMONIAE Possibly penicillin resistant, results to be confirmed -Fungal pending -No acid-fast bacilli seen, culture pending Ref. Range 02/11/2010 11:15 Neutrophils, Fluid No range found 66 Lymphocytes, Fluid No range found 10 [place]/Macro, Fluid No range found 24 Fluid Comment No range found BACTERIA PRESENT Note, External No range found Cell count not available, consult Pathologist Bronchoscopy with Bronchoalveolar Lavage (02/11): An Olympus 3.8 mm flexible bronchoscope was passedthrough the laryngeal mask airway.?? Visualization of laryngeal structures revealed: epiglottis & arytenoids were normal and 1mL of 2% lidocaine was instilled at the cords., Tracheal findings included:?? purulent secretions noted in trachea, 1.5 mL of 1% lidocaine instilled at the margarita.?? Thebronchial anatomy was normal.?? There were thick mucopurulent secretions in the LMSB, LLL and superior segment of the RLL. BAL was performed with 20 mL aliquots of non-bacteriostatic normal saline inthe RLL and twice in the LLL.?? A total of 20 mL of purulent secretions were suctioned. Last Lab Results at Discharge: CBC: Lab Results Component Value Date WBC 9.55 02/11/2010 RBC 3.66* 02/11/2010 HGB 11.1* 02/11/2010 HCT 31.2* 02/11/2010 MCV 85 02/11/2010 MCH 30.2 02/11/2010 MCHC 35.4 02/11/2010 PLT 211 02/11/2010 DIFFTYPE Automated 02/11/2010 Electrolytes: Lab Results Component Value Date NA 141 02/11/2010 K 3.6 02/11/2010 CL 105 02/11/2010 CO2 25 02/11/2010 IgE: Lab Results Component Value Date IGE 309 02/11/2010 Results for TULIO HART ( ) as of 02/14/2010 08:47 Ref. Range 02/13/2010 19:04 Iron Latest Range: 30-220 ug/dl 39 TIBC No range found 273 Iron Saturation No range found 14 Ferritin Latest Range: 10-140 ng/mL 83 Pending Studies at Discharge: Sputum ex bronchoalveolar lavage: Final bacterial, fungal and AFB cultures Condition at Discharge: Good Assessment at Discharge: Vital signs: Patient Vitals in the past 12 hrs: BP Temp Pulse Resp SpO2 02/14/10 0930 82/51 mmHg 36.7 ??C (98.1 ??F) 89 22 100 % 02/14/10 0920 - - 104 22 - 02/14/10 0853 - - 104 20 - Physical Exam: Gen: Pt. Is lying and watching tv in NAD HEENT: Small <1mm pinpoint white lblister on the bottom inner lip that is painful, MMM, PERRLA, EOMI, Nares with yellow nasal discharge bilaterally. No lymphadenopathy presents on exam Lungs: good air exchange bilaterally, CTAB with some crackles noted on the lower lobes no wheezing Heart: regular rate & rhythm, normal S1,S2, no murmurs, rubs, or gallops Abdomen/Rectum: Normal scaphoid appearance, soft, non-tender, without organ enlargement or masses. Skin: No rashes or abnormal dyspigmentation Access: PICC line in left arm which is c/d/i Follow-up Services Contacted at Discharge: Home health Primary care physician Follow Up Appointment(s): Please schedule an appointment to pulm clinic with Dr. Child on 02/26 for follow-up and PICC line removal cc: Trell Sanon Discharge Summary Completed: Efrain Gonzales MD, MS Pediatric Resident PGY-3 [phone] (pager) Cosigned by Albin Child MD at 02/14/2010 13:41 EDT documented in this encounter Discharge Instructions * Discharge Instructions* Leslie Sylvester - 02/14/2010 10:27 EDT Pulm clinic with Dr. Child will call this afternoon for an appointment on 02/26 for follow-up and PICC line removal documented in this encounter Medications at Time of Discharge acetaminophen (TYLENOL) 160 mg/5 mL solution Take 5.5 mL by mouth every 4 hours as needed for Pain for 4 doses. 30 mL 0 04/10/2009 1 azithromycin (ZITHROMAX) 200 mg/5 mL suspension Take 5 mL by mouth three times a week. Take 1 tsp by mouth (5ml) three times per week (M,W, F) 60 mL 2 02/14/2010 3 FLUTICASONE PROPIONATE (FLOVENT HFA INHL) Inhale 2 Puffs as directed 2 times daily. 1 lactobacillus acidophilus & bulgar (LACTINEX) 1 million cell Chew Take 1 Tab by mouth 3 times daily with meals. 50 Tab 0 02/14/2010 1 LANSOPRAZOLE (PREVACID ORAL) Take 15 mg by mouth 2 times daily. 1 LEVALBUTEROL HCL (XOPENEX INHL) Inhale 2 Puffs as directed 2 times daily. 1 Miscellaneous Medication - See Admin Instructions Inject 720 mg into the vein every 12 hours for 12 days. Ceftriaxone 720mg IV q12 hr (7am, 7pm) - To be administered by IV nurse over 30 minutes 1 Units 0 02/14/2010 0 Multivitamins with Minerals Tab Take 1 Tab by mouth three times a week. 6 POLYETHYLENE GLYCOL 3350 (MIRALAX ORAL) Take 1 Cap by mouth daily. Varies 1-1/2 caps per day 07/29/2010 2 sodium chloride 7 % Take 4 mL by nebulization 2 times daily. 150 mL 0 02/13/2010 0 sodium chloride sinus rinse Pack by Nasal route daily. Use in each nostril daily 1 Bottle 0 02/13/2010 0 documented as of this encounter Ordered Prescriptions Prescription Sig Dispense Quantity Refills Last Filled Start Date End Date azithromycin (ZITHROMAX) 200 mg/5 mL suspension Take 5 mL by mouth three times a week. Take 1 tsp by mouth (5ml) three times per week (M,W, F) 60 mL 2 02/14/2010 3 Miscellaneous Medication - See Admin Instructions Inject 720 mg into the vein every 12 hours for 12 days. Ceftriaxone 720mg IV q12 hr (7am, 7pm) - To be administered by IV nurse over 30 minutes 1 Units 0 02/14/2010 0 lactobacillus acidophilus & bulgar (LACTINEX) 1 million cell Chew Take 1 Tab by mouth 3 times daily with meals. 50 Tab 0 02/14/2010 1 sodium chloride sinus rinse Pack by Nasal route daily. Use in each nostril daily 1 Bottle 0 02/13/2010 0 sodium chloride 7 % Take 4 mL by nebulization 2 times daily. 150 mL 0 02/13/2010 0 documented in this encounter Discharge Disposition Disposition Code Departure Means Destination Home or Self Care documented in this encounter Progress Notes * Jacob Acosta RN - 02/14/2010 2854 EDT Pt d/c'd to home in care of mother. [employer] [employer] RN provided home infusion supplies and teaching. Report called to Rashmi at [facility]. Rashmi aware that family will be staying at friend's home temporarily and will coordinate w/ mom for home health. RAÚL Espinosa * Albin Child MD - 02/14/2010 1047 EDT Pediatric Pulmonary Attending Progress Note Date of Service: 02/14/2010 Chief Complaint: Bronchiectasis with acute exacerbation, primary ciliary dyskinesia Subjective: Tulio is a 4 y.o. 1 m.o. female with primary ciliary dyskinesia who is admitted with an acute exacerbation. Tulio did develop a cough this morning. She otherwise feels well. She has had 4 loose stools over the past 24 hours. Her appetite remains stable. She is eager to go home today. Review Of Systems: Pertinent positives are listed below, all others are negative: Constitutional: positive for fevers and fatigue Ears, nose, mouth, throat, and face: positive for nasal congestion Respiratory: positive for cough GI: positive for diarrhea PMH/FH/SH: Unchanged from admission. Allergies Allergen Reactions ??? Penicillins Rash ??? Amoxicillin Rash ??? Milk Nausea And Vomiting And itchy, rash, nasal congestion ??? Adhesive Tape Other (See Comments) blisters Physical Examination: Vital signs range for last 24 hours: Temp: [36.6 ??C (97.9 ??F)-36.8 ??C (98.2 ??F)] , Pulse: [78-104] , Resp: [20-22] , BP: (82-100)/(42-55) , SpO2: [99 %-100 %] Current Oxygenation/Ventilation Status: SpO2: 100 % FIO2 %: 21 % General Appearance: alert, comfortable appearing child, in no acute distress. ?? HEENT: Pupils equal, round, and reactive. Conjunctivae were pink. Allergic shiners present, t ympanic ? membranes were sahni with left PE tube in place. Nares are clear. Oropharynx without erythema or exudate. Two small aphthous lesions on lower lip, no thrush. Tonsils were 2+, enlarged. ?? Neck was supple with a few mildly enlarged submandibular nodes. Chest: Good air entry. Coarse inspiratory and expiratory noise posteriorly, no wheezes, retractions, or significant prolongation of the expiratory phase, no accessory muscle use was evident. Cardiac: S1 and S2 were heard with a regular rhythm. Abdomen soft NT ND, no organomegaly Extremities were without clubbing, PICC line in LUE without tenderness Data Review: Studies: Recent Results (from the past 24 hour(s)) CREATININE Collection Time 02/13/101903 Component Value Range ??? Creatinine 0.31 0.1-0.7 (mg/dl) ? ? GFR, Calculated Age <18 (ml/min/1.73m2) FERRITIN Collection Time 02/13/101903 Component Value Range ??? Ferritin 83 10-140 (ng/mL) TRANSFERRIN SATURATION Collection Time 02/13/101903 Component Value Range ??? Iron 39 30-220 (ug/dl) ??? TIBC 273 (ug/dl) ??? Iron Saturation 14 (%) BAL: S.pneumoniae, possible PCN resistance Radiology: N/A Is PICC or Central line present? Yes, it is still present. The line is still required. Assessment/Problems/Plans: Tulio is a 4 y.o. 1 m.o. female with PCD who presents with an acute pulmonary exacerbation. We will continue to treat her with aggressive airway clearance and parenteral antibiotics as an outpatient. Bronchoscopy with lavage revealed diffuse inflammation with evidence of infection. She has responded clinically to treatment. She has some iron deficiency anemia which may be addressed as an outpatient. She will be discharged today with the following plan: Patient Active Problem List Diagnoses Date Noted ??? *(H)Bronchiectasis with Acute Exacerbation 11/26/2008 ??? (H)Primary ciliary dyskinesia 02/12/2010 ??? Asthma 02/12/2010 ??? GERD (gastroesophageal reflux disease) 02/12/2010 ??? Simple or Unspecified Chronic Serous Otitis Media 03/29/2009 TP OR PP ??? Unspecified Chronic Suppurative Otitis Media 03/29/2009 TP OR PP ??? Chronic Otitis Media 11/26/2008 Plan:?1. FEN- regular diet 2. Respiratory- Chest PT by percussion tid with albuterol, Vest has been ordered. Continue hypertonic saline 7% BID, Continue Flovent 110 mcg 2p BID. 3. ID- IV ceftriaxone q12h.?? Continue azithromycin 200mg po every Mon, Wed, Fri. 4. Heme- will discuss iron supplementation with her stationary steam engineer 5. GI- Prevacid 30mg BID. Begin lactobacillus TID ?6. Psychosocial--will need support Child Life and Psychology. ?7. Disposition-Home today. Will need to follow up in Pulmonary Clinic on 02/25/10. ALBIN CHILD MD 02/14/2010 10:47 * Swapna Valadez - 02/14/2010 0453 EDT OVERNIGHT EVENTS 02/13/10 (19:04) - Iron studies resulted - Iron 39, TIBC 273, Iron saturation 14, Ferritin 83 Otherwise doing well with no acute events overnight. Swapna Valadez MD ([phone]) PGY-1 * Arabella Godoy RN - 02/13/2010 1536 EDT I spoke with Tulio's mother and she would like to move infusion times to 7 AM and 1900. I have called [facility] and spoke with Rashmi and they will plan to do an evening visit tomorrow. I have faxed orders to [facility] and will continue to coordinate with the team for discharge. I spoke with Dr. Child and his office is working on getting the VEST. Arabella Godoy RN #[id number] * Albin Child MD - 02/13/2010 1144 EDT Pediatric Pulmonary Attending Progress Note Date of Service: 02/13/2010 Chief Complaint: Bronchiectasis with acute exacerbation, primary ciliary dyskinesia Subjective: Tulio is a 4 y.o. 1 m.o. female with primary ciliary dyskinesia who is admitted with an acute exacerbation. Tulio is doing well. She slept through the night without cough. She is tolerating the vest well. Her nasal congestion has resolved. She is having regular bowel movements without diarrhea or constipation. Both Tulio and mom are eager to go home. Review Of Systems: Pertinent positives are listed below, all others are negative: Constitutional: positive for fevers and fatigue Ears, nose, mouth, throat, and face: positive for nasal congestion Respiratory: positive for cough PMH/FH/SH: Unchanged from admission. Allergies Allergen Reactions ??? Penicillins Rash ??? Amoxicillin Rash ??? Milk Nausea And Vomiting And itchy, rash, nasal congestion ??? Adhesive Tape Other (See Comments) blisters Physical Examination: Vital signs range for last 24 hours: Temp: [35.8 ??C (96.4 ??F)-36.1 ??C (97 ??F)] , Pulse: [92-108] , Resp: [14-26] , BP: (87-103)/(50-59) , SpO2: [96 %-99 %] Current Oxygenation/Ventilation Status: SpO2: 98 % General Appearance: alert, comfortable appearing child, in no acute distress. ?? HEENT: Pupils equal, round, and reactive. Conjunctivae were pink. Allergic shiners present, t ympanic ? membranes were sahni with left PE tube in place. Nares are clear. Oropharynx without erythema or exudate. Two small aphthous lesions on lower lip, no thrush. Tonsils were 2+, enlarged. Some cobblestoning with postnasal drip was evident. ?? Neck was supple with a few mildly enlarged submandibular nodes. Chest: Good air entry. Clear breath sounds throughout. No crackles, wheezes, retractions, or significant prolongation of the expiratory phase, no accessory muscle use was evident. Cardiac: S1 and S2 were heard with a regular rhythm. Abdomen soft NT ND, no organomegaly Extremities were without clubbing, PICC line in LUE without tenderness Data Review: Studies: No results found for this or any previous visit (from the past 24 hour(s)). BAL: S.pneumoniae, possible PCN resistance Radiology: N/A Is PICC or Central line present? Yes, it is still present. The line is still required. Assessment/Problems/Plans: Tulio is a 4 y.o. 1 m.o. female with PCD who presents with an acute pulmonary exacerbation. We will treat her with aggressive airway clearance and parenteral antibiotics to return her symptoms to baseline. Bronchoscopy with lavage revealed diffuse inflammation with evidence of infection. She has responded clinically to treatment. Patient Active Problem List Diagnoses Date Noted ??? *(H)Bronchiectasis with Acute Exacerbation 11/26/2008 ??? (H)Primary ciliary dyskinesia 02/12/2010 ??? Asthma 02/12/2010 ??? GERD (gastroesophageal reflux disease) 02/12/2010 ??? Simple or Unspecified Chronic Serous Otitis Media 03/29/2009 TP OR PP ??? Unspecified Chronic Suppurative Otitis Media 03/29/2009 TP OR PP ??? Chronic Otitis Media 11/26/2008 Plan:?1. FEN- regular diet 2. Respiratory- Chest PT by percussion tid with albuterol, Will introduce vest for airway clearancetoday. Continue hypertonic saline 7% BID, Continue Flovent 110 mcg 2p BID. Spirometry on 02/14/10. 3. ID- IV ceftriaxone q12h.?? Continue azithromycin 200mg po every Mon, Wed, Fri. 4. Heme- obtain iron studies 5. GI- Prevacid 30mg BID ?6. Psychosocial--will need support Child Life and Psychology. ?7. Disposition-RASHID 02/14/10 with home IV therapy. Will need to follow up in Pulmonary Clinic on 02/25/10. ALBIN CHILD MD 02/13/2010 11:44 * Efrain Gonzales MD - 02/13/2010 0842 EDT Images from the original note were not included. Pediatric Hospital Progress Note Admit Date: 02/11/2010 Hospital day: LOS: 2 days Date of Service: 02/13/2010 Chief Complaint: Tulio Hart is a 4 y.o. female with primary ciliary dyskinesia and asthma who was admitted with an acute pulmonary exacerbation secondary to strep penumnonae that was resistantto OP antibiotics. 24 Hour Events: No fevers overnight, however she continues to cough and bring up mucous. A concern for possible thrush on her inner bottom lip was brought up. She has a PFT scheduled for today Subjective: She slept well (10 hours) and still has good appetite. Mom asks if they can continue therapy from home. Current facility-administered medications Medication Route Frequency ??? pneumococcal vaccine (PPV23) (PNEUMOVAX) injection 0.5 mL Intramuscular ONCE ??? azithromycin (ZITHROMAX) suspension 200 mg Oral THREE TIMES WEEKLY ??? sodium chloride 7 % solution for nebulization 4 mL Nebulization BID ??? albuterol (PROVENTIL HFA, VENTOLIN HFA) inhaler 2-4 Puff Inhalation QID ??? lansoprazole (PREVACID SOLUTAB) disintegrating tablet 15 mg Oral BID AC ??? PEG 3350-Electrolytes (MIRALAX) packet 8.5 g Oral DAILY ??? fluticasone (FLOVENT) 110 mcg/Actuation inhaler 2 Puff Inhalation BID ??? sodium chloride sinus rinse Pack Nasal DAILY ??? cefTRIAXone (ROCEPHIN) 720 mg in sodium chloride 0.9 % 50 mL IVPB Intravenous Q12H ??? acetaminophen (TYLENOL) chewable tablet 280 mg Oral Q4H PRN ??? acetaminophen (TYLENOL) 80 mg chewable tablet Review of Systems: A 10 point Review of Systems was completed. Pertinent positives are noted in the HPI/Subjective. Objective: VS Range for last 24 hours: Temp: [35.8 ??C (96.4 ??F)-37.6 ??C (99.7 ??F)] , Pulse: [92-108] , Resp: [14- 30] , BP: (87-103)/(48-59) , SpO2: [96 %-100 %] SpO2: 98 % FIO2 %: 21 % O2 Device: None (Room air) O2 Flow Rate (L/min): 10 l/min I+O: Intake/Output Summary (Last 24 hours) at 02/13/10 0842 Last data filed at 02/13/10 0100 Gross per 24 hour Intake 600 ml Output 0 ml Net 600 ml Pain 1-10 scale: Empty flowsheet group. Pain non verbal scale:Empty flowsheet group. Height/Weight: Weight : 19.051 kg (42 lb) There is no height on file to calculate BMI. Physical Exam: Gen: Pt. Is lying and watching tv in NAD HEENT: Small <1mm pinpoint white lblister on the bottom inner lip that is painful, MMM, PERRLA, EOMI, Nares with yellow nasal discharge bilaterally. No lymphadenopathy presents on exam Lungs: good air exchange bilaterally, CTAB with no wheezing or crackles Heart: regular rate & rhythm, normal S1,S2, no murmurs, rubs, or gallops Abdomen/Rectum: Normal scaphoid appearance, soft, non-tender, without organ enlargement or masses. Skin: No rashes or abnormal dyspigmentation Access: PICC line in left arm which is c/d/i Labs: neither CBC: Lab Results Component Value Date WBC 9.55 02/11/2010 RBC 3.66* 02/11/2010 HGB 11.1* 02/11/2010 HCT 31.2* 02/11/2010 MCV 85 02/11/2010 MCH 30.2 02/11/2010 MCHC 35.4 02/11/2010 PLT 211 02/11/2010 NEUTROABS 8.55 02/11/2010 nor BMP: Lab Results Component Value Date NA 141 02/11/2010 K 3.6 02/11/2010 CL 105 02/11/2010 CO2 25 02/11/2010 BUN 5* 02/11/2010 CREATININE 0.40 02/11/2010 IgE: 309 Ref. 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 Bronchoscopy on 02/11 showed diffuse purulent secretions in all lobes. Cystic fibrosis had previously beenruled out with normal sweat chloride and no CFTR mutations identified.?? She is being admitted for parenteral antibiotics and aggressive airway clearance for her pulmonary exacerbation likely caused by STREPTOCOCCUS PNEUMONIAE and asthma.? Patient Active Hospital Problem List: FEN : euvolemic ?? - regular diet . Resp: - Chest PT by percussion tid with albuterol - Started vest for airway clearance today 4x per day - Continue hypertonic saline 7% BID - Continue Flovent 110 mcg 2p BID - Spirometry on 02/14/10. - Give pneumovac 23-valent immunization today - PFT's today ID: Greater than 100,000 CFU/ml STREPTOCOCCUS PNEUMONIAE - continue V ceftriaxone q12h.?? - Continue azithromycin 200mg po every Mon, Wed, Wed. - BAL cultures pending - No need for Chest CT during this admission Aphthous ulcer: on the lower lip -monitor clinically GI - Prevacid 30mg BID Psychosocial - will need support Child Life and Psychology. Disposition - likely discharge tomorrow with [facility]NA orders for daily antibiotic coverage until 02/27 and chest PT with the vest and hypertonic saline with plan to return for follow-up and PICC line removal Efrain Gonzales MD, MS Pediatric Resident PGY-5 [phone] (pager) * Efrain Gonzales MD - 02/12/2010 8993 EDT Images from the original note were not included. Pediatric Hospital Progress Note Admit Date: 02/11/2010 Hospital day: LOS: 1 day Date of Service: 02/12/2010 Chief Complaint: Tulio Hart is a 4 y.o. female with primary ciliary dyskinesia who is admitted with an acute exacerbation. 24 Hour Events: She had a fever to 38.9 after the bronchoscopy last night, which was controlled with tyl. She also had pain in her left arm due to the PIC line which was controlled with the heat pad Subjective: She slept well, but is still having cough with mucousy sounds. She has a good appeitte and ate fruit and has had a nm BM Current facility-administered medications Medication Route Frequency ??? azithromycin (ZITHROMAX) suspension 200 mg Oral THREE TIMES WEEKLY ??? sodium chloride 7 % solution for nebulization 4 mL Nebulization BID ??? albuterol (PROVENTIL HFA, VENTOLIN HFA) inhaler 2-4 Puff Inhalation QID ??? lansoprazole (PREVACID SOLUTAB) disintegrating tablet 15 mg Oral BID AC ??? PEG 3350-Electrolytes (MIRALAX) packet 8.5 g Oral DAILY ??? fluticasone (FLOVENT) 110 mcg/Actuation inhaler 2 Puff Inhalation BID ??? sodium chloride sinus rinse Pack Nasal DAILY ??? cefTRIAXone (ROCEPHIN) 720 mg in sodium chloride 0.9 % 50 mL IVPB Intravenous Q12H ??? acetaminophen (TYLENOL) chewable tablet 280 mg Oral Q4H PRN ??? acetaminophen (TYLENOL) 80 mg chewable tablet Review of Systems: A 10 point Review of Systems was completed. Pertinent positives are noted in the HPI/Subjective. Objective: VS Range for last 24 hours: Temp: [35.8 ??C (96.4 ??F)-37.6 ??C (99.7 ??F)] , Pulse: [104-125] , Resp: [20- 30] , BP: (98-141)/(45-59) , SpO2: [98 %-100 %] SpO2: 99 % FIO2 %: 21 % O2 Device: None (Room air) O2 Flow Rate (L/min): 10 l/min I+O: Intake/Output Summary (Last 24 hours) at 02/12/10 1825 Last data filed at 02/12/10 1300 Gross per 24 hour Intake 400 ml Output 0 ml Net 400 ml Pain 1-10 scale: Empty flowsheet group. Pain non verbal scale:Empty flowsheet group. Height/Weight: Weight : 19.051 kg (42 lb) There is no height on file to calculate BMI. Physical Exam: Gen: Pt. Is lying and watching tv in NAD HEENT: MMM, PERRLA, EOMI, Nares with yellow nasal discharge bilaterally. <2mm, freely-mobile posterior cervical LN appreciated. Lungs: good air exchange bilaterally, CTAB with no wheezing or crackles Heart: regular rate & rhythm, normal S1,S2, no murmurs, rubs, or gallops Abdomen/Rectum: Normal scaphoid appearance, soft, non-tender, without organ enlargement or masses. Skin: No rashes or abnormal dyspigmentation Access: PICC line in left arm which is c/d/i Is PICC/Central Line Present? Yes, it is still present. The line is still required. Labs: neither CBC: Lab Results Component Value Date WBC 9.55 02/11/2010 RBC 3.66* 02/11/2010 HGB 11.1* 02/11/2010 HCT 31.2* 02/11/2010 MCV 85 02/11/2010 MCH 30.2 02/11/2010 MCHC 35.4 02/11/2010 PLT 211 02/11/2010 NEUTROABS 8.55 02/11/2010 nor BMP: Lab Results Component Value Date NA 141 02/11/2010 K 3.6 02/11/2010 CL 105 02/11/2010 CO2 25 02/11/2010 BUN 5* 02/11/2010 CREATININE 0.40 02/11/2010 IgE: 309 Ref. 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 Bronchoscopy on 02/11 showed diffuse purulent secretions in all lobes. Cystic fibrosis had previously beenruled out with normal sweat chloride and no CFTR mutations identified.?? She is being admitted for parenteral antibiotics and aggressive airway clearance for her pulmonary exacerbation likely caused by STREPTOCOCCUS PNEUMONIAE.? Patient Active Hospital Problem List: FEN : euvolemic ?? - regular diet . Resp: - Chest PT by percussion tid with albuterol - Started vest for airway clearance today 4x per day - Started hypertonic saline 7% BID - Continue Flovent 110 mcg 2p BID - Spirometry on 02/14/10. ID: Greater than 100,000 CFU/ml STREPTOCOCCUS PNEUMONIAE - continue V ceftriaxone q12h.?? - Continue azithromycin 200mg po every Mon, Wed, Fri. - BAL cultures pending - Needs chest CT during admission Heme - consider iron studies and supplementation. GI - Prevacid 30mg BID Psychosocial - will need support Child Life and Psychology. Disposition -anticipate 1 for IV antibiotics with home IV therapy to follow. Efrain Gonzales MD, MS Pediatric Resident PGY-1 [phone] (pager) * Ceci Burton - 02/12/2010 1541 EDT Pt eating and drinking well with appropriate output. C/o Pain at PICC site and given tylenol x1 today. Tolerating IV ABX and Resp therapy well with periods of rest and play. Mom at bedside * Thomas Nelson - 02/12/2010 1137 EDT Images from the original note were not included. Pediatric Hospital Progress Note Admit Date: 02/11/2010 Hospital day: LOS: 1 day Date of Service: 02/12/2010 Chief Complaint: Tulio Hart is a 4 y.o. female admitted for an acute pulmonary exacerbation of her primary ciliary dyskinesia 24 Hour Events: Yesterday Tulio underwent a bronchoscopy performed by Dr. Child. After the procedure she developed a fever to 38.9C but was given a dose of Tylenol and the fever reduced. Chest PT was performed last evening with good result. No other significant events. Subjective: Overnight, mom reports that Tulio experienced a lot more coughing than she usually has. The coughing sounded productive and gunky in nature but she does not ever bring up any sputum and swallows most of it. She experienced no other fevers and slept decently last night. Her bowel andbladder habits are back to normal, as she was experiencing some diarrhea MEDICAL PRACTICE ADMINISTRATOR. Appetite has been okay, and she ate some fruit and toast last night after the procedure. Current facility-administered medications Medication Route Frequency ??? azithromycin (ZITHROMAX) suspension 200 mg Oral THREE TIMES WEEKLY ??? sodium chloride 7 % solution for nebulization 4 mL Nebulization BID ??? albuterol (PROVENTIL HFA, VENTOLIN HFA) inhaler 2-4 Puff Inhalation QID ??? lansoprazole (PREVACID SOLUTAB) disintegrating tablet 15 mg Oral BID AC ??? PEG 3350-Electrolytes (MIRALAX) packet 8.5 g Oral DAILY ??? fluticasone (FLOVENT) 110 mcg/Actuation inhaler 2 Puff Inhalation BID ??? sodium chloride sinus rinse Pack Nasal DAILY ??? cefTRIAXone (ROCEPHIN) 720 mg in sodium chloride 0.9 % 50 mL IVPB Intravenous Q12H ??? acetaminophen (TYLENOL) chewable tablet 280 mg Oral Q4H PRN ??? acetaminophen (TYLENOL) 80 mg chewable tablet Review of Systems: Pertinent Negatives: H/A, fevers, chills, nausea, vomiting, SOB, wheezing, chest pain, abdominal pain, diarrhea, constipation Objective: VS Range for last 24 hours: Temp: [35.7 ??C (96.3 ??F)-38.9 ??C (102 ??F)] , Pulse: [88-125] , Resp: [22-33] , BP: (98-141)/(43-73) , SpO2: [96 %-100 %] SpO2: 100 % FIO2 %: 21 % O2 Device: None (Room air) O2 Flow Rate (L/min): 10 l/min I+O: Intake/Output Summary (Last 24 hours) at 02/12/10 1142 Last data filed at 02/12/10 0830 Gross per 24 hour Intake 550 ml Output 0 ml Net 550 ml Physical Exam: Exam: General: sleeping this AM, tired and davis upon awakening but cooperative with the exam, no acute distress Eyes: PERRL, EOM's intact, no injection or discharge HENT: atraumatic, normocephalic; external ears w/o evidence of drainage or erythema; nares patent w/o drainage; throat mildly erythematous but no exudate, tonsils mildly enlarged Neck: supple without thyromegaly or lymphadenopathy Lungs: clear to auscultation in anterior and posterior verdin, no wheezes or crackles, no nasal flaring/retractions/accessory muscle use Heart: regular rate, +S1/S2, no murmur/rub/gallop appreciated Abdomen: soft, nondistended, +BS, no masses or organomegaly Skin/Extremitites: PICC in left antecubital fossa with gauze, site clean dry and intact Labs: CBC: Lab Results Component Value Date WBC 9.55 02/11/2010 RBC 3.66* 02/11/2010 HGB 11.1* 02/11/2010 HCT 31.2* 02/11/2010 MCV 85 02/11/2010 MCH 30.2 02/11/2010 MCHC 35.4 02/11/2010 PLT 211 02/11/2010 NEUTROABS 8.55 02/11/2010 BMP: Lab Results Component Value Date NA 141 02/11/2010 K 3.6 02/11/2010 CL 105 02/11/2010 CO2 25 02/11/2010 BUN 5* 02/11/2010 CREATININE 0.40 02/11/2010 BAL cultures: bacterial, fungal, AFB still pending Other studies: Bronchoscopy - normal epiglottis and arytenoids, purulent secretions noted in trachea, normal bronchial anatomy, thick mucopurulent secretions in the LMSB, LLL, and superior segment ofthe RLL. Assessment: Tulio is a 4 y/o female here with acute pulmonary exacerbation of her primary ciliary dyskinesia.Overall she has improved following initiation of IV Abx and chest PT. To continue her improvement and aggressive management, we will add a flutter vest as well as nebulized 7% hypertonic saline to her treatment regimen. She will continue to take her MEDICAL PRACTICE ADMINISTRATOR meds for her other medical problems as outline d below. Plan: 1.) Primary ciliary dyskinesia: - Azithromycin 200mg PO MWF - IV ceftriaxone 75mg/kg Q12 - 7% hypertonic saline nebulized 4mL BID - Flutter vest - Chest PT via percussion TID - Sinus rinses 1x/day 2.) Asthma: - albuterol inhaler 2-4puff QID - Flovent 110mcg inhaled 2puff BID 3.) GERD: - lansoprozole 30mg PO BID 4.) Constipation - Miralax 8.5g PO QD Discharge Plan: Home with family in approximately 1 week Thomas Nelson 02/12/2010 11:37 [phone] * Albin Child MD - 02/12/2010 0832 EDT Pediatric Pulmonary Attending Progress Note Date of Service: 02/12/2010 Chief Complaint: Bronchiectasis with acute exacerbation Subjective: Tulio is a 4 y.o. 1 m.o. female with primary ciliary dyskinesia who is admitted with an acute exacerbation. Tulio underwent bronchoscopy yesterday which showed purulent secretions most concentrated in the LLL and RLL. She also had a PICC line placed. She had significant coughing after the procedure but responded well to chest percussion. She was febrile overnight. Her appetite is stable. There was some minor PICC line discomfort relieved by warm compresses. She had a normal bowel movement in the evening. Review Of Systems: Pertinent positives are listed below, all others are negative: Constitutional: positive for fevers and fatigue Ears, nose, mouth, throat, and face: positive for nasal congestion Respiratory: positive for cough PMH/FH/SH: Unchanged from admission. Allergies Allergen Reactions ??? Penicillins Rash ??? Amoxicillin Rash ??? Milk Nausea And Vomiting And itchy, rash, nasal congestion ??? Adhesive Tape Other (See Comments) blisters Physical Examination: Vital signs range for last 24 hours: Temp: [35.7 ??C (96.3 ??F)-38.9 ??C (102 ??F)] , Pulse: [81-125] , Resp: [20-33] , BP: (102-141)/(42-73) , SpO2: [96 %- 100 %] Current Oxygenation/Ventilation Status: General Appearance: alert, comfortable appearing child, in no acute distress. ?? HEENT: Pupils equal, round, and reactive. Conjunctivae were pink. Allergic shiners present, t ympanic ? membranes were sahni with left PE tube in place. Nares are clear. Oropharynx without erythema or exudate. ?? Tonsils were 2+, enlarged. Some cobblestoning with postnasal drip was evident. ?? Neck was supple with a few mildly enlarged submandibular nodes. Chest: Good air entry. Clear breath sounds throughout. No crackles, wheezes, retractions, or significant prolongation of the expiratory phase, no accessory muscle use was evident. Cardiac: S1 and S2 were heard with a regular rhythm. Abdomen soft NT ND, no organomegaly Extremities were without clubbing, PICC line in LUE without tenderness Data Review: Studies: Recent Results (from the past 24 hour(s)) DIFFERENTIAL, LAVAGE FLUID Collection Time 02/11/101114 Component Value Range ??? Neutrophils, Fluid 66 (%) ??? Lymphocytes, Fluid 10 (%) ??? Trumbull/Macro, Fluid 24 (%) ??? Fluid Comment BACTERIA PRESENT ??? Note Cell count not available, consult Pathologist BACTERIAL CULTURE/SMEAR, RESPIRATORY Collection Time 02/11/101114 Component Value Range ??? Specimen Description Bronchoalveolar Lavage ??? Gram Smear Result Value: Polys present Alveolar macrophages present Gram positive cocci present ??? Result Pending ??? Report Status Pending CREATININE Collection Time 02/11/101913 Component Value Range ??? Creatinine 0.40 0.1-0.7 (mg/dl) ? ? GFR, Calculated Age <18 (ml/min/1.73m2) BUN Collection Time 02/11/101913 Component Value Range ??? BUN 5 (*) 7-18 (mg/dl) ELECTROLYTES Collection Time 02/11/101913 Component Value Range ??? Sodium 141 136-145 (mEq/L) ??? Potassium 3.6 3.6-5.2 (mEq/L) ??? Chloride 105 96-110 (mEq/L) ??? CO2 25 24-32 (mEq/L) IGE Collection Time 02/11/101913 Component Value Range ??? IgE No sample received, floor notified 9-32 (IU/ml) HEMAGRAM AND DIFFERENTIAL Collection Time 02/11/101913 Component Value Range ??? WBC 9.55 5.0-14.5 (K/cmm) ??? RBC 3.66 (*) 3.90-5.30 (M/cmm) ??? Hemoglobin 11.1 (*) 11.5-13.5 (gm/dl) ??? HCT 31.2 (*) 34.0-40.0 (%) ??? MCV 85 75-87 (fl) ??? MCH 30.2 (pg) ??? MCHC 35.4 (gm/dl) ??? PLT 211 156-312 (K/cmm) ??? RDW-CV 13.3 (%) ??? Neutrophils 89.6 (%) ??? Lymphocytes 4.7 (%) ??? Monocytes 5.2 (%) ??? Eosinophils 0.4 (%) ??? Basophils 0.1 (%) ??? ABS Neutrophils 8.55 (K/cmm) ??? ABS Lymphs 0.44 (K/cmm) ??? ABS Monocytes 0.50 (K/cmm) ??? ABS Eosinophils 0.04 (K/cmm) ??? ABS Basophils 0.01 (K/cmm) ??? Type of Diff: Automated Radiology: N/A Is PICC or Central line present? Yes, it is still present. The line is still required. Assessment/Problems/Plans: Tulio is a 4 y.o. 1 m.o. female with PCD who presents with an acute pulmonary exacerbation. We will treat her with aggressive airway clearance and parenteral antibiotics to return her symptoms to baseline. Bronchoscopy with lavage revealed diffuse inflammation with evidence of infection. Patient Active Problem List Diagnoses Date Noted ??? *(H)Bronchiectasis with Acute Exacerbation 11/26/2008 ??? (H)Primary ciliary dyskinesia 02/12/2010 ??? Asthma 02/12/2010 ??? GERD (gastroesophageal reflux disease) 02/12/2010 ??? Simple or Unspecified Chronic Serous Otitis Media 03/29/2009 TP OR PP ??? Unspecified Chronic Suppurative Otitis Media 03/29/2009 TP OR PP ??? Chronic Otitis Media 11/26/2008 Plan:?1. FEN- regular diet 2. Respiratory- Chest PT by percussion tid with albuterol, Will introduce vest for airway clearancetoday. Begin hypertonic saline 7% BID, Continue Flovent 110 mcg 2p BID. Spirometry on 02/14/10. 3. ID- IV ceftriaxone q12h.?? Continue azithromycin 200mg po every Mon, Wed, Fri. BAL cultures pending. 4. Heme- consider iron studies and supplementation. 5. GI- Prevacid 30mg BID 6. Labs: check IgE level . ?7. Psychosocial--will need support Child Life and Psychology. ?8. Disposition-anticipate 1 week with home IV therapy to follow. ALBIN CHILD MD 02/12/2010 8:33 * Leslie Eli CRNA - 02/12/2010 0807 EDT Post Anesthesia Evaluation Date of Service: 02/12/2010 The patient has been evaluated and assessed. If present, post anesthetic events are documented below. Procedure detail: Anesthesia Type: General Level of Consciousness: Awake BP 141/45 Pulse 115 Temp 37.1 ??C (98.8 ??F) Resp 24 Wt 19.051 kg (42 lb) SpO2 98% Vital Signs: Stable Post Op Pain: No complaints of pain or discomfort Ambulatory Status: Bedrest Additional follow up needed: No Perioperative events: General Events: None Recall: Absent GI Event: Other (Comment) (taking po well) LESLIE ELI CRNA 02/12/2010 8:07 * Arabella Godoy RN - 02/11/2010 1645 EDT Brief Case Management Assessment Reason for Hospitalization: Pt is A 4 yo with ciliary dyskinesia admitted with acute exacerbation and failure of outpatient abx. S/p bronch (full of pus) Current Living Arrangements: Pt lives in [place], [place] with her mother, brother, father and grandmother. Current Social, Health Care and Community Supports: Pt has [facility] for Chest Physiotherapy. Identified Case Management/Social Work Needs and Issues (housing, care, financial, transportation, cultural, spiritual, emotional, legal, etc.): Pt's mother works in a daycare and father works in a machine shop. They have Medicaid for insurance. No jew or cultural concerns. Case Management Actions (completed and planned): Family is aware of resources such as parking validation and [facility] room. Family would likea re-referral to home health at discharge. I will continue to follow for needs and concerns. Please page me if issues or concerns arise. Arabella Godoy RN #[phone] * Ashley Barajas - 02/11/2010 1453 EDT paid search specialist consulted for procedural education and support. Tulio [facility] to the [facility] with her mother. Opportunities for play and normalization were provided. Support and distraction provided during IV start. Child Life services will continue to be available as needed. -DIANE Castro Pager#[phone] * Stephanie Jules - 02/11/2010 1428 EDT 1415 transported pt with mom in wheelchair to room pt in [facility], rn at bedside * Stephanie Jules - 02/11/2010 140[address] EDT [address] mohan. He will write floor orders * Clau Rudolph - 02/11/2010 1404 EDT Post Anesthesia Evaluation Date of Service: 02/11/2010 The patient has been evaluated, assessed and discharged from anesthesia care with stable cardiorespiratory function and acceptable mental status, pain management, body temperature, fluid balance, andnausea/vomiting control. Additional monitoring and assessment needs have been addressed. If present, postoperative events are documented below. Baseline cough, not having fevers. CLAU RUDOLPH MD 02/11/2010 14:04 * Stephanie Jules - 02/11/2010 1347 EDT 1345pt awake refuses to take tyenol, . Crying wants pulse ox off, sats 100% * Stephanie Jules. - 02/11/[address] antoine at bedside exubated pt, to hien, pt awake, 1321 mom at bedside. * Trinh Chavez RN - 02/11/2010 1256 EDT Pt arrived to [facility] [address], intubated , accompanied by anesthesia. Verified pt ID, allergies, consents, hx. On table, sterile prep done. lead under pelvis, safety strap in place. Pt remains under the care of anesthesia the entire time. Transported to PACU intubated, monitored, and accompanied by anesthesia. KET * Brittny Anand RN - 02/11/2010 0905 EDT Tulio Hart arrived to [facility] with family/caregiver. Discussed flow of day, SL/PIV as indicated, recovery and Book Publisher support. Questions answered,concerns addressed. Tulio tolerated IV start very well with support and distraction from her mother and DIANE Castro. documented in this encounter H&P Notes * Efrain Gonzales MD - 02/11/2010 1617 EDT Images from the original note were not included. [facility] Child Admission Note Admit Date: 02/11/2010 Date of Service: 02/11/2010 PCP: TRELL SANON MD Chief Complaint: Cough and wheeze for 4 weeks refractory to medication HPI: Tulio Hart is a 4 y.o. female with presumed diagnosis of primary ciliary dyskinesia (many sinusitis and OM infections) and history of asthma and gerd who presents with a 4 week history of cough and wheeze refractory to medication. She has seen her PCP Dr. Sanon who has tried a 15 day course of augmentin and a few days of omnicef with no improvement. The cough is productive with clearish- yellow discharge and occurs during the day and recently has been noted at night time. Over the past 2 days she has had difficulty sleeping, but normal UOP, energy level and appetite. + rhinorrhea (green discharge), constipation (which has recently switched to diarrhea after increasing her mirolaxdose). The mother denies fever, N/V, ear pain, sore throat. She has been seen by Dr. Wade at allergy clinic who is treating her for possible milk allergy and asthma. She goes to kindergarten and hasno recent sick contacts. [facility] Past Medical History Diagnosis Date ??? OM (otitis media) ??? Asthma Always rattley per mom Past Surgical History Procedure Date ??? Pyloromyotomy 3 sets of PE tubes ??? Pr bronchoscopy,diagnostic w lavage 02/11/2010 [facility] Past Medical History Diagnosis Date ??? OM (otitis media) ??? Asthma Always rattley per mom Past Surgical History Procedure Date ??? Pyloromyotomy 3 sets of PE tubes ??? Pr bronchoscopy,diagnostic w lavage 02/11/2010 Social History Family History Lives with parents and 5 year old brother, The house is carpeted, they have 5 cats and 2 dogs, + smoke contact with father and grandmother Asthma and allergies History No history on file. Allergies Immunizations Allergies Allergen Reactions ??? Penicillins Rash ??? Amoxicillin Rash ??? Milk Nausea And Vomiting And itchy, rash, nasal congestion ??? Adhesive Tape Other (See Comments) blisters Up to date: yes Medications Prescriptions prior to admission Medication Sig Dispense Refill ??? cefdinir (OMNICEF) 300 mg capsule Take 300 mg by mouth 2 times daily. ??? cefdinir (OMNICEF) 250 mg/5 mL suspension Take 250 mg by mouth 2 times daily. ??? AMOX TR/POTASSIUM CLAVULANATE (AUGMENTIN ORAL) Take by mouth. ??? acetaminophen (TYLENOL) 160 mg/5 mL solution Take 5.5 mL by mouth every 4 hours as needed for Pain for 4 doses. 30 mL 0 ??? SULFAMETHOXAZOLE/TRIMETHOPRIM (BACTRIM ORAL) Take 1 tsp by mouth daily. ??? POLYETHYLENE GLYCOL 3350 (MIRALAX ORAL) Take 0.5 Caps by mouth daily. ??? FLUTICASONE PROPIONATE (FLOVENT HFA INHL) Inhale 2 Puffs as directed 2 times daily. ??? LEVALBUTEROL HCL (XOPENEX INHL) Inhale 2 Puffs as directed 2 times daily. ??? LANSOPRAZOLE (PREVACID ORAL) Take 15 mg by mouth 2 times daily. ??? AZITHROMYCIN (ZITHROMAX ORAL) Take 1 tsp by mouth SEE ADMIN INSTRUCTIONS. Takes -- ??? sodium chloride 3 % Take 4 mL by nebulization 2 times daily. qs 1 month 1 ??? Multivitamins with Minerals Tab Take 1 Tab by mouth three times a week. Review of Systems: A 10 point Review of Systems was completed. Pertinent positives are noted in the HPI/Subjective. Objective: VS: Patient Vital Signs in the past 8 hrs: BP Pulse Resp Temp SpO2 O2 Flow Rate (L/min) O2 Device 02/11/10 1424 123/73 mmHg - 22 - - - - 02/11/10 1345 - - - - 100 % - - 02/11/10 1330 - - - - 100 % - - 02/11/10 1321 - - - 35.8 ??C (96.4 ??F) 96 % 10 l/min - 02/11/10 1310 137/47 mmHg - 30 - 100 % - - 02/11/10 1305 118/47 mmHg - 33 - 99 % 10 l/min - 02/11/10 1300 122/43 mmHg - 30 - 99 % - - 02/11/10 1255 120/45 mmHg - 28 - 100 % 10 l/min - 02/11/10 1250 121/43 mmHg - 30 35.7 ??C (96.3 ??F) 96 % - - 02/11/10 0907 102/42 mmHg 81 20 36.7 ??C (98.1 ??F) 100 % - None (Room air) Pain 1-10 scale: Empty flowsheet group. Pain non verbal scale: Empty flowsheet group. Length/Weight/Head Circum: Weight : 19.051 kg (42 lb) Physical Exam: Exam: Gen: Pt. Is lying in bed coloring and watching tv in NAD HEENT: MMM, ears show tubes in both TM with no erythematous canals, with OP that has some residual specks of blood from earlier bronchoscopy, but is non- erythematous Nares show boggy, engorged middleturbinate with yellow nasal discharge bilaterally. <2mm, freely-mobile posterior cervical LN Lungs: Mild wheezing noted in the lower lobes bilaterally on expiration, no crackles and good air exchange bilaterally Heart: Normal PMI, regular rate & rhythm, normal S1,S2, no murmurs, rubs, or gallops Abdomen/Rectum: Normal scaphoid appearance, soft, non-tender, without organ enlargement or masses. Skin/Hair/Nails: No rashes or abnormal dyspigmentation Access: PICC line in left arm which is c/d/i Labs: Results for TULIO HART ( ) as of 02/11/2010 16:41 Ref. Range 02/11/2010 11:15 Neutrophils, Fluid No range found 66 Lymphocytes, Fluid No range found 10 [place]/Macro, Fluid No range found 24 Fluid Comment No range found BACTERIA PRESENT Note, External No range found Cell count not available, consult Pathologist Bronchoscopy with Bronchoalveolar Lavage (02/11): An Olympus 3.8 mm flexible bronchoscope was passedthrough the laryngeal mask airway.?? Visualization of laryngeal structures revealed: epiglottis & arytenoids were normal and 1mL of 2% lidocaine was instilled at the cords., Tracheal findings included:?? purulent secretions noted in trachea, 1.5 mL of 1% lidocaine instilled at the margarita.?? Thebronchial anatomy was normal.?? There were thick mucopurulent secretions in the LMSB, LLL and superior segment of the RLL. BAL was performed with 20 mL aliquots of non-bacteriostatic normal saline inthe RLL and twice in the LLL.?? A total of 20 mL of purulent secretions were suctioned. Pending: Sputum bacterial, viral and AFB culture (02/11) Problem Based Assessment/Plan: Tulio is a 4 year old female with presumed primary ciliary dyskinesia, asthma and [place] who presents with a pulmonary exacerbation resistant to outpatient treatment with augentim and omnicef.?? Bronchoscopy was especially diffuse diffuse purulent secretions in all lobes. Cystic fibrosis had previously been ruled out with normal sweat chloride and no CFTR mutations identified.?? She is being admitted for parenteral antibiotics and aggressive airway clearance.? Patient Active Hospital Problem List: FEN: euvolemic -regular diet Pulmonary Exacerbation: pneumonia and sinusitis likely secondary to primary ciliary dyskinesia - PICC placement by IR and bronchoscopy with sedation this am - Chest PT by percussion t id with albuterol - chest CT scan with contrast. Will introduce vest for airway clearance - Trial of hypertonic saline 7% - Spirometry on 02/14/10 - CBC, lytes, creatinine , IgE level - start ceftriaxone q12h - Continue azithromycin 200mg po every Mon, Wed, Fri. Psychosocial -will need support Child Life and Psychology. Disposition -anticipate 1-2 weeks for IV antibiotics. Efrain Gonzales MD, MS Pediatric Resident PGY-0 [phone] (pager) Cosigned by Albin Child MD at 02/13/2010 7:16 EDT * OmarThomas - 02/11/2010 1509 EDT Chief Complaint: worsening cough and wheezing HPI: Tulio Hart is a 4 year old girl who presented to the hospital today with a 4 week historyof progressively worsening cough and wheeze. Per mom, Tulio's coughing and wheezing has been occurring throughout the day, but recently has been getting worse at night. Over the last few days, the cough has been keeping her up at night and she has not slept well. Her cough has been mildly productive of a grayish sputum. Other associated symptoms include right ear pain, rhinorrhea with a greenish discharge, and abdominal pain. Throughout the course of her illness, Tulio was on a prescriptionfor Augmentin, but her course actually worsened while on this. She was switched to Omnicef and is ta edilberto this currently. Past Medical History: Tulio has a history of constipation, asthma, recurrent otitis media, gastroesophageal reflux, and was recently given a diagnosis of primary ciliary dyskinesia while at [facility] at the end of December. She has been worked up multiple times for cystic fibrosis,and she has been sweat test negative and has no CFTR mutations that have been identified. Past Surgical History: Adenoidectomy 2006; PE tubes in 2005, 2006, and 2008; Family History: Tulio's family history is positive for a mother with asthma and a father with allergies. Of significance, there is no family history of cystic fibrosis. Social History: Tulio lives at home in [place], [place] with her mother, father, 1 brother, and her grandmother. She just started kindergarten this year. There is a history of smoke exposure in the home and there are 5 cats and 2 dogs in the home as well. Allergies: milk protein - causes vomiting, possible amoxicillin/penicillin - causes rash, surgical tape - blisters MEDICAL PRACTICE ADMINISTRATOR Medications: Prescriptions prior to admission Medication Sig Dispense Refill ??? cefdinir (OMNICEF) 300 mg capsule Take 300 mg by mouth 2 times daily. ??? cefdinir (OMNICEF) 250 mg/5 mL suspension Take 250 mg by mouth 2 times daily. ??? AMOX TR/POTASSIUM CLAVULANATE (AUGMENTIN ORAL) Take by mouth. ??? acetaminophen (TYLENOL) 160 mg/5 mL solution Take 5.5 mL by mouth every 4 hours as needed for Pain for 4 doses. 30 mL 0 ??? SULFAMETHOXAZOLE/TRIMETHOPRIM (BACTRIM ORAL) Take 1 tsp by mouth daily. ??? POLYETHYLENE GLYCOL 3350 (MIRALAX ORAL) Take 0.5 Caps by mouth daily. ??? FLUTICASONE PROPIONATE (FLOVENT HFA INHL) Inhale 2 Puffs as directed 2 times daily. ??? LEVALBUTEROL HCL (XOPENEX INHL) Inhale 2 Puffs as directed 2 times daily. ??? LANSOPRAZOLE (PREVACID ORAL) Take 15 mg by mouth 2 times daily. ??? AZITHROMYCIN (ZITHROMAX ORAL) Take 1 tsp by mouth SEE ADMIN INSTRUCTIONS. Takes M-W-F ??? sodium chloride 3 % Take 4 mL by nebulization 2 times daily. qs 1 month 1 ??? Multivitamins with Minerals Tab Take 1 Tab by mouth three times a week. Review of Systems: Per mom, Tulio has not had any fevers, chills, H/A, night sweats, chest pain, SOB, nausea, vomiting, or diarrhea. Her ROS is positive for cough, ear pain, nasal discharge, abdominal pain, and constipation Physical Exam: Vitals: 35.8C, pulse 96, RR 23 General: alert, cooperative, and interactive throughout the exam HEENT: atraumatic, normocephalic; PERRLA, EOM's intact, no scleral injection, no discharge; tympanic membranes clear without erythema or bulging, PE tubes in place bilaterally, + cerumen; nares clearand patent without drainage; throat without erythema or exudate, tonsils enlarged Neck: no thyromegaly, trachea midline, + posterior cervical lymphadenopathy Cardiac: regular rate and rhythm, +S1/S2, no murmurs appreciated Lungs: expiratory wheeze in both LLL and RLL, no wheeze or crackles were appreciated, no nasal flaring, retractions, or increased work of breathing Abdomen: soft, nontender, nondistended, +BS, no masses or organomegaly Extremities: no evidence of edema, no clubbing of the fingers, PICC line in place in left arm with bandage on and no sign of bleeding Other Studies: 1.) Bronchoscopy - normal epiglottis and arytenoids, purulent secretions noted in trachea, normal bronchial anatomy, thick mucopurulent secretions in the LMSB, LLL, and superior segment of the RLL. Assessment/Plan: Tulio is a 4 year old girl with PMHx significant for asthma and primary ciliary dyskinesia who presents with 4 weeks worsening cough and wheezing. Given her persistent cough, wheezes, and purulent nasal discharge, it is likely that this is an exacerbation of her primary ciliary dyskinesia. With the results of her bronchoscopy and her clinical course, she will need aggressive therapy targeted towards airway clearance and loosening of mucus plugs. This should be done via chest PT and flutter vest. Additionally, she should be started on hypertonic saline 3%. Tulio should also continue her outpatient azithromycin regimen of 200mg po every MWF. Bronchoscopic cultures will further direct course of antibiotic therapy, but until results are back she should be started on a broad spectrum IV antibiotic such as ceftriaxone or ceftazidime. * Albin Child MD - 02/10/2010 1016 EDT PEDIATRIC PULMONARY ATTENDING ADMISSION NOTE 02/11/10 CC: Primary ciliary dyskinesia acute exacerbation HPI: Tulio is 4-year-old girl with a history of refractory cough and wheeze over the past 4 weeks. She completed 15 days of Augmentin and now several days of Omnicef without clinical improvement. In fact, her cough has increased during the day and now at night. She has been unable to sleep over the past two days. She has had some rhinorrhea, but no otic drainage. Her appetite and energy level have been stable and continue to be good. Her symptoms are often exacerbated by humid weather. Her heartburn and abdominal discomfort has been well controlled. She recently was constipated (as usually occurs with Augmentin for Tulio). Her mother increased her Miralax dose and she developed diarrheayesterday. ROS: + sneezing, no fever, chills, hemoptysis, diarrhea, emesis, rash. All other systems were reviewed and negative. PMH: history: 42 weeks' gestation by vaginal delivery; weight 8 pounds 14 ounces. Primary ciliary dyskinesia: presumed diagnosis, several nasal brushes, tracheal and inferior turbinate biopsies have failed to reveal cilia that are suitable for analysis. Status post PE tube placement in 02/2006, 10/2006, 08/24/08. Adenoidectomy: 10/2006 Asthma [place] History of constipation Negative immunologic workup in 2008 Never diagnosed with pneumonia, although sinusitis has been presumed on numerous occasions. Hospitalized for parenteral antibiotics 11/2008. Allergies: She has a milk protein allergy and develops a rash with amoxicillin. Immunizations: Her immunizations are up to date, including pneumococcal vaccine. Environmental History: The home has carpeting throughout. Her father and grandmother do smoke, bothin the car and at home. The heating is by oil and wood. There are 5 cats and 2 dogs in the house. Family History: There is a maternal history of asthma and allergies as well as asthma in a 4-year-old brother. No significant paternal history. No family history of cystic fibrosis. Social History: Tulio is in school. She lives with her parents and 5-year-old brother as well as grandmother. Current Medications: Flovent 110 2p BID, azithromycin 200mg every MWF, Miralax 1-2 capfuls daily, chest percussion TID, Prevacid 15 mg BID, sinus rinse kit daily, Acapella prn, Xopenex 2 p or albuterol 2.5mg neb as needed, cefdinir daily. P.E.: BP 102/42 Pulse 81 Temp 36.7 ??C (98.1 ??F) Resp 20 SpO2 100% General Appearance: alert, comfortable appearing child, in no acute distress. HEENT: Pupils equal, round, and reactive. Conjunctivae were pink. Allergic shiners present, tympanic membranes were sahni with left PE tube in place. Nares are clear. Oropharynx without erythema or exudate. Tonsils were 2+, enlarged. Some cobblestoning with postnasal drip was evident. Neck was supple with a few mildly enlarged submandibular nodes. Chest: Good air entry. + coarse central expiratory wheezes were heard. No crackles were appreciated. No wheezes, retractions, significant prolongation of the expiratory phase, or accessory muscle usewas evident. Cardiac: S1 and S2 were heard with a regular rhythm. Abdomen soft NT ND, no organomegaly Extremities were without clubbing. Other Studies: Bronchoscopy cultures: (11/02/08) S.pneumonae, H.influenzae, M.catarhalis; Fungal- Mycelia sterilia; 04/23 sweat test negative (chlorides 16/14). 08/2007: immunoglobulins normal, immunization antibody titers normal with good pneumococcal response to 10 serotypes. Spirometry attempted 10/28/09: FVC 90% FEV1 98% [id number] 123% IMPRESSION: Tulio is a 4 year old child with presumed primary ciliary dyskinesia who presents with a pulmonary exacerbation. Her symptoms have persisted despite aggressive outpatient treatment including oral antibiotics, asthma and reflux treatment. The appearance of her airways on bronchoscopy was especially striking with diffuse purulent secretions in all lobes. Cystic fibrosis had previouslybeen ruled out with normal sweat chloride and no CFTR mutations identified. We plan to address her continued respiratory symptoms with parenteral antibiotics and aggressive airway clearance. Plan: 1. FEN- regular diet 2. Respiratory- Chest PT by percussion tid with albuterol, chest CT scan with contrast. Will introduce vest for airway clearance. Trial of hypertonic saline 7%. Spirometry on 02/14/10. 3. ID- PICC placement by IR and bronchoscopy with sedation; then begin V ceftriaxone q12h. Continueazithromycin 200mg po every Mon, Wed, Fri. 4. Labs: CBC, lytes, creatinine, IgE level on admission. 5. Psychosocial--will need support Child Life and Psychology. 6. Disposition-anticipate 1-2 weeks. documented in this encounter Procedure Notes * Tiffanie Du RT - 02/13/2010 1230 EDT Testing was performed and recorded in [employer]. See complete report in scanned documents. * Albin Child MD - 02/11/2010 1342 EDTProcedure(s): MA BRNCHSC W/BRNCL ALVEOLAR LAVAGE Pre-Procedure Diagnose(s): Bronchiectasis with acute exacerbation (HCC-CMS); Primary ciliary dyskinesia Post-Procedure Diagnose(s): Bronchiectasis with acute exacerbation (HCC-CMS); Primary ciliary dyskinesia PEDIATRIC PROCEDURE NOTE Title of Procedure : Pediatric Bronchoscopy Referring Physician: Trell Sanon Date Performed: 02/11/2010 Time Performed: 1045 Performed by: ALBIN Khan MD, performed this procedure with assistance from Jason Mohan MD. Erin was present during the entire course of the procedure. Indications and/or Provisional Diagnosis: bronchiectasis with acute exacerbation, primary ciliary dyskinesia Consent: Written consent obtained from caregiver after procedure discussed Type of Anesthesia/Sedation: Propofol Fluids Given: See I&O Unless otherwise noted, there was no blood loss, specimens removed, cultures obtained, or drains retained. Time Out: A time-out was completed verifying correct patient, procedure, site, positioning, and special equipment if applicable. Procedure Type: Bronchoscopy with Bronchoalveolar Lavage Equipment Used: Olympus 3.8 mm Procedure Technique/Description of Procedure: An Olympus 3.8 mm flexible bronchoscope was passed through the laryngeal mask airway. Visualization of laryngeal structures revealed: epiglottis & arytenoids were normal and 1mL of 2% lidocaine was instilled at the cords., Tracheal findings included: purulent secretions noted in trachea, 1.5 mL of 1% lidocaine instilled at the margarita. The bronchial anatomy was normal. There were thick mucopurulent secretions in the LMSB, LLL and superior segmentof the RLL. BAL was performed with 20 mL aliquots of non-bacteriostatic normal saline in the RLL and twice in the LLL. A total of 20 mL of purulent secretions were suctioned. Post Procedure Diagnosis: bronchiectasis with acute exacerbation, primary ciliary dyskinesia Complications: None, the patient tolerated the procedure well Specimens: Bronchoalveolar lavage sent to lab for: Cell count & differential Gram stain Bacterial culture Fungal culture AFB culture & smear ALBIN CHILD MD 02/11/2010 13:42 * Almas Swartz PA - 02/11/2010 1241 EDT Central Catheter Insertion First Catheter This Session alarm operator: Patient Location: [id number] Preliminary Data: Insertion Date: 02/11/10 Insertion Time: 1228 First Shirt Sorter: DELGADO RN/MA Documenting Procedure: KET Pre-procedure: Time Out / Final Moment Performed: Yes Hand Hygiene Immediately Prior To Procedure: Yes Site Disinfected-2% Chlorhex/70% Alcohol: Yes Procedure Site Completely Dry: Yes Entire Patient Draped in Sterile Fashion: Yes Intra-procedure: Sterile Gloves Used: Yes Cap, Mask, and Sterile Gown - Operators: Yes Sterile Field Maintained: Yes Cap and Mask Worn - All Personnel: Yes Post-procedure: Sterile Dressing Applied - Sterile Technique: Yes Dressing Dated And Timed: Yes Needle Passes: Physician Documentation Pre-Procedure: Procedure To Be Performed: New central line placement Indication: New indication Conditions Present: Other (Comment) Line Priority: Routine Follow-Up X-ray: Placed under fluoro Consent Obtained: No The patient and/or family have been provided education/training to minimize the risk of central line-associated bloodstream infections. Central Line Type: Central Catheter Type: PICC PICC Type: Solo PICC Central Line Details: Line Location: Left;Basilic Central Line Size: 4 Fr Line Trim Length: (32 cm) Line External Length: 1 cm Line Securement Device: Statlock device Responsible Service / IR Details: Responsible Service: IR Lidocaine 1 % (cc) Administered SC: 1 Other Sedation / Analgesia Administered: See anesthesia notes Fluoroscopy Time (min): 0.3 Patient Condition At Completion Of Case: Stable Central Line Materials and Methods: Number of Attempts: 2 Number of Sites Attempted: 1 Number of Kits Used: 1 Location Device Used: Angiography;Ultrasound Central Line Operators: Number Of Operators: 1 First Shirt Sorter's Name: Rene Swartz PA-C First Shirt Sorter's Title: KRISTEN Unless otherwise noted, there were no complications, no blood loss and no cultures obtained. KRISTEN Viera 02/11/2010 12:41 Cosigned by Johnathan Lau MD at 02/13/2010 11:36 EDT * Consuelo Hermosillo RN - 02/11/2010 1116 EDT Patient to [facility] via stretcher by Son Hermosillo RN and Madalyn Vega RT at 1109, mother in attendance untilpatient asleep. ID and procedure verified by Gary Hermosillo, Dr. Child and Howard Rudolph MD from anesthesia. Procedure start at 1122. Finished at 1132. Patient intubated by Dr. Rudolph for transport to [facility] via stretcher at 1145 by Bay/Ronni. * Inpatient, Physician - 02/11/2010 0000 EDTAssociated Order(s): ORDERS - SCANNED * Inpatient, Physician - 02/11/2010 0000 EDTAssociated Order(s): PULMONARY FUNCTION LAB REPORT - SCANNED * Inpatient, Physician - 02/11/2010 0000 EDTAssociated Order(s): ORDERS - SCANNED * Inpatient, Physician - 02/11/2010 0000 EDTAssociated Order(s): PULMONARY FUNCTION LAB REPORT - SCANNED * Inpatient, Physician - 02/11/2010 0000 EDTAssociated Order(s): PULMONARY FUNCTION LAB REPORT - SCANNED documented in this encounter Consult Notes * Scarlet Salgado RD - 02/12/2010 1019 EDT Clinical Nutrition Nutrition services aware that patient has a milk protein allergy, and appropriate foods will be sent to pt Reyna Salgado RD,CD Beeper 330 documented in this encounter OR Notes * Anesthesia Procedure Notes - Inpatient, Physician - 02/11/2010 0000 EDT * Anesthesia Procedure Notes - Inpatient, Physician - 02/11/2010 0000 EDT * Anesthesia Preprocedure Evaluation - Inpatient, Physician - 02/11/2010 0000 EDT documented in this encounter Miscellaneous Notes * Plan of Care - Manju Perez RN - 02/14/2010 0234 EDT Problem: PAIN Goal: Patient's Pain/Discomfort Is Manageable Outcome: Ongoing Pt requested and received Tylenol for bicep pain tonight secondary to receiving pneumonia vaccine today. Positive effect, pt slept rest of night comfortably. * Plan of Care - Irina Griffin RN - 02/13/2010 1740 EDT Problem: INEFFECTIVE AIRWAY CLEARANCE Goal: Return Respiratory Status To Baseline Outcome: Ongoing Tulio has had regular respiratory rate and pattern today. She has had a cough intermittently and is able to bring up some sputum. She has been active today in her room and the playroom * Plan of Care - Albin Child MD - 02/13/2010 1221 EDT We discussed and plan to administer the Pneumovax for Tulio. She has had two significant resistant pneumococcal pulmonary infections. * Plan of Care - Manju Perez RN - 02/13/2010 0308 EDT Problem: INEFFECTIVE AIRWAY CLEARANCE Goal: Return Respiratory Status To Baseline Outcome: Ongoing Active Multi-Disciplinary problems: INEFFECTIVE AIRWAY CLEARANCE [[id number]] (02/13/10) Data: Pt lung sounds are coarse at times, clears with cough. RR 14, 98% on RA Action: TCDB encouraged, Resp. status monitored overnight, administer Abx as scheduled. Response: Pt compliant with Resp. Tx, Slept well, received Abx at scheduled time. VSSA. Cont to moniotr Manju Perez RN 02/13/2010 3:04 * Scanned Note-Null - Inpatient, Physician - 02/11/2010 0000 EDT * Scanned Note-Null - Inpatient, Physician - 02/11/2010 0000 EDT * Scanned Note-Null - Inpatient, Physician - 02/11/2010 0000 EDT * Scanned Note-Null - Inpatient, Physician - 02/11/2010 0000 EDT documented in this encounter Plan of Treatment Upcoming Encounters Date Type Department Care Team (Late st Contact Info) Description 04/24/2024 15:30 EST Telemedicine [facility] Pediatric Pulmonary - [address] [place], [place] [id number] Lucy Rodgers MD [address] [place] [phone] Scheduled Referrals Name Type Priority Associated Diagnoses Orde r Schedule AMB CONSULT HOME HEALTH SERVICES Outpatient Referral Routine Bronchiectasis with acute exacerbation ([facility]) Primary ciliary dyskinesia Ordered: 02/13/2010 documented as of this encounter Procedures Procedure Name Priority Date/Time Associated Diagnosis Comments PULMONARY FUNCTION REPORT - SCANNED 02/25/2010 15:38 EDT PULMONARY FUNCTION REPORT - SCANNED 02/24/2010 12:51 EDT PULMONARY FUNCTION REPORT - SCANNED 02/19/2010 18:40 EDT ORDERS - SCANNED 02/19/2010 18:4 0 EDT ORDERS - SCANNED 02/18/2010 22:1 1 EDT DRY POWDERED OR METERED DOSE INHALER Routine 02/14/2010 0:05 EDT DRY POWDERED OR METERED DOSE INHALER Routine 02/14/2010 0:05 EDT DRY POWDERED OR METERED DOSE INHALER Routine 02/14/2010 0:05 EDT VEST Routine 02/14/2010 0:05 EDT VEST Routine 02/14/2010 0:05 EDT NEBULIZER TX INTERMITTENT Routine 02/14/2010 0:05 EDT TRANSFERRIN SATURATION Routine 0 19:04 EDT TRANSFERRIN Routine 02/13/2010 19:04 EDT FERRITIN Routine 02/13/2010 19:04 EDT CREATININE Routine 02/13/2010 19:04 EDT NEBULIZER TX INTERMITTENT Routine 02/13/2010 9:54 EDT DRY POWDERED OR METERED DOSE INHALER Routine 02/13/2010 0:05 EDT DRY POWDERED OR METERED DOSE INHALER Routine 02/13/2010 0:05 EDT DRY POWDERED OR METERED DOSE INHALER Routine 02/13/2010 0:05 EDT VEST Routine 02/13/2010 0:05 EDT VEST Routine 02/13/2010 0:05 EDT VEST Routine 02/13/2010 0:05 EDT VEST Routine 02/13/2010 0:05 EDT DRY POWDERED OR METERED DOSE INHALER Routine 02/13/2010 0:05 EDT DRY POWDERED OR METERED DOSE INHALER Routine 02/13/2010 0:05 EDT DRY POWDERED OR METERED DOSE INHALER Routine 02/13/2010 0:05 EDT VEST Routine 02/12/2010 9:15 EDT VEST Routine 02/12/2010 9:15 EDT VEST Routine 02/12/2010 9:15 EDT VEST Routine 02/12/2010 9:15 EDT DRY POWDERED OR METERED DOSE INHALER Routine 02/12/2010 0:07 EDT DRY POWDERED OR METERED DOSE INHALER Routine 02/12/2010 0:07 EDT DRY POWDERED OR METERED DOSE INHALER Routine 02/12/2010 0:07 EDT DRY POWDERED OR METERED DOSE INHALER Routine 02/12/2010 0:07 EDT DRY POWDERED OR METERED DOSE INHALER Routine 02/12/2010 0:07 EDT DRY POWDERED OR METERED DOSE INHALER Routine 02/12/2010 0:07 EDT CHEST PHYSIOTHERAPY Routine 02/12/2010 0 :07 EDT CHEST PHYSIOTHERAPY Routine 02/12/2010 0 :07 EDT IGE Routine 02/11/2010 22:27 EDT COMPLETE BLOOD COUNT AND DIFFERENTIAL Routine 02/11/2010 19:14 EDT BUN Routine 02/11/2010 19:14 EDT IGE Routine 02/11/2010 19:14 EDT CREATININE Routine 02/11/2010 19:14 EDT ELECTROLYTES Routine 02/11/2010 19:14 EDT DRY POWDERED OR METERED DOSE INHALER Routine 02/11/2010 16:57 EDT DRY POWDERED OR METERED DOSE INHALER Routine 02/11/2010 16:57 EDT CHEST PHYSIOTHERAPY Routine 02/11/2010 1 4:52 EDT AFB CULTURE/SMEAR, RESPIRATORY Routine 02/11/2010 11:15 EDT DIFFERENTIAL, LAVAGE FLUID Routine 02/11/2010 11:15 EDT FUNGUS CULTURE, RESPIRATORY Routine 02/11/2010 11:15 EDT BACTERIAL CULTURE/SMEAR, RESPIRATORY Routine 02/11/2010 11:15 EDT documented in this encounter Results * PULMONARY FUNCTION LAB REPORT - SCANNED (02/25/2010 15:38 EDT) 02/25/2010 15:3 8 EDT Narrative Procedure Note Inpatient, Physician - 02/11/2010 0:00 EDT us Physician Inpatient MD PROCEDURE/MINOR SURGICAL ORDERABLES Final Result * PULMONARY FUNCTION LAB REPORT - SCANNED (02/24/2010 12:51 EDT) 02/24/2010 12:5 1 EDT Narrative Procedure Note Inpatient, Physician - 02/11/2010 0:00 EDT Physician Inpatient MD PROCEDURE/MINOR SURGICAL ORDERABLES Final Result Performing Organization Address [facility] Phone Number POINT OF CARE * ORDERS - SCANNED (02/19/2010 18:40 EDT) 02/19/2010 18:4 0 EDT Narrative Procedure Note Inpatient, Physician - 02/11/2010 0:00 EDT Physician Inpatient MD ADMISSION ORDERABLES Virginia l Result Performing Organization Address [facility] Phone Number POINT OF CARE * PULMONARY FUNCTION LAB REPORT - SCANNED (02/19/2010 18:40 EDT) 02/19/2010 18:4 0 EDT Narrative Procedure Note Inpatient, Physician - 02/11/2010 0:00 EDT Physician Inpatient MD PROCEDURE/MINOR SURGICAL ORDERABLES Final Result Performing Organization Address [facility] Phone Number POINT OF CARE * ORDERS - SCANNED (02/18/2010 22:11 EDT) 02/18/2010 22:1 1 EDT Narrative Procedure Note Inpatient, Physician - 02/11/2010 0:00 EDT Physician Inpatient MD ADMISSION ORDERABLES Virginia l Result Performing Organization Address [facility] Phone Number POINT OF CARE * TRANSFERRIN SATURATION (02/13/2010 19:04 EDT) Iron 39 30 - 220 ug/dl [facility] TIBC 273 ug/dl [facility] Iron Saturation 14 % [facility] Blood specimen (specimen) 02/13/2010 19:04 EDT 02/13/2010 20:04 EDT us Neftaly Valdes MD CHEMISTRY & BLOOD GAS ORDERABLES Final Result Performing Organization Address [facility] de Phone Number [facility] [address] [place] [address] * TRANSFERRIN (02/13/2010 19:04 EDT) Transferrin 227 175 - 318 mg/dl [facility] Blood specimen (specimen) 02/13/2010 19:04 EDT 02/13/2010 20:04 EDT us Neftaly Valdes MD CHEMISTRY & BLOOD GAS ORDERABLES Final Result Performing Organization Address [facility] de Phone Number [facility] [address] [place] [address] * FERRITIN (02/13/2010 19:04 EDT) Ferritin 83 10 - 140 ng/mL [facility] Blood specimen (specimen) 02/13/2010 19:04 EDT 02/13/2010 20:04 EDT us Neftaly Valdes MD CHEMISTRY & BLOOD GAS ORDERABLES Final Result Performing Organization Address [facility] de Phone Number [facility] [address] [place] [address] * CREATININE (02/13/2010 19:04 EDT) Creatinine 0.31 0.1 - 0.7 mg/dl [facility] GFR, Calculated Age <18 ml/min/1.7 3m2 [facility] Blood specimen (specimen) 02/13/2010 19:04 EDT 02/13/2010 20:04 EDT us Bri Aranda MD CHEMISTRY & BLOOD GAS ORDERA BLES Final Result Performing Organization Address [facility] de Phone Number [facility] [address] [place] [address] * IGE (02/11/2010 22:27 EDT) IgE 309 IU/ml [facility] Blood specimen (specimen) 02/11/2010 22:27 EDT 02/11/2010 22:37 EDT us Albin Child MD CHEMISTRY & BLOOD GAS ORDERABLE S Final Result [facility] [address] [place] [address] * (ABNORMAL) HEMAGRAM AND DIFFERENTIAL (02/11/2010 19:14 EDT) Pathologist [facility] WBC 9.55 5.0 - 14.5 K/cmm [facility] RBC 3.66(L) 3.90 - 5.30 M/cmm [facility] Hemoglobin 11.1(L) 11.5 - 13.5 gm/dl [facility] HCT 31.2(L) 34.0 - 40.0 % [facility] MCV 85 75 - 87 fl [facility] MCH 30.2 pg [facility] MCHC 35.4 gm/dl [facility] PLT 211 156 - 312 K/cmm [facility] RDW-CV 13.3 % [facility] % Neutrophils 89.6 % [facility] % Lymphocytes 4.7 % [facility] % Monocytes 5.2 % [facility] % Eosinophils 0.4 % [facility] % Basophils 0.1 % [facility] ABS Neutrophils 8.55 K/cmm [facility] ABS Lymphs 0.44 K/cmm [facility] ABS Monocytes 0.50 K/cmm [facility] ABS Eosinophils 0.04 K/cmm [facility] ABS Basophils 0.01 K/cmm [facility] Type of Diff: Automated [facility] Blood specimen (specimen) 02/11/2010 19:14 EDT 02/11/2010 21:11 EDT us Albin Child MD PACKAGES & DNA PROBE ORDERABLES Final Result Performing Organization Address City/[facility]/ZIP Co de Phone Number [facility] [address] [place] [address] * IGE (02/11/2010 19:14 EDT) Pathologist [facility] [place] IgE No sample received, floor notified 9 - 32 IU/ml [facility] Blood specimen (specimen) 02/11/2010 19:14 EDT 02/11/2010 21:11 EDT us Albin Child MD CHEMISTRY & BLOOD GAS ORDERABLE S Final Result Performing Organization Address [facility] Co de Phone Number [facility] [address] [place] [address] * ELECTROLYTES (02/11/2010 19:14 EDT) [facility] Sodium 141 136 - 145 mEq/L [facility] Potassium 3.6 3.6 - 5.2 mEq/L [facility] Chloride 105 96 - 110 mEq/L [facility] CO2 25 24 - 32 mEq/L [facility] Blood specimen (specimen) 02/11/2010 19:14 EDT 02/11/2010 21:11 EDT Albin Child MD CHEMISTRY & BLOOD GAS ORDERABLE S Final Result Performing Organization Address [facility] Co de Phone Number [facility] [address] [place] [address] * (ABNORMAL) BUN (02/11/2010 19:14 EDT) [facility] BUN 5(L) 7 - 18 mg/dl [facility] Blood specimen (specimen) 02/11/2010 19:14 EDT 02/11/2010 21:11 EDT us Albin Child MD CHEMISTRY & BLOOD GAS ORDERABLE S Final Result Performing Organization Address City/[facility]/ZIP Co de Phone Number [facility] [address] [place] [address] * CREATININE (02/11/2010 19:14 EDT) Creatinine 0.40 0.1 - 0.7 mg/dl [facility] GFR, Calculated Age <18 ml/min/1.7 3m2 [facility] Blood specimen (specimen) 02/11/2010 19:14 EDT 02/11/2010 21:11 EDT Bri Aranda MD CHEMISTRY & BLOOD GAS ORDERA BLES Final Result Performing Organization Address [facility] Co de Phone Number [facility] [address] [place] [address] * FUNGUS CULTURE, RESPIRATORY (02/11/2010 11:15 EDT) Specimen Description Bronchoalveolar Lavage [facility] Result One colony only ASPERGILLUS FUMIGATUS Rare PENICILLIUM SPECIES One colony only MYCELIA STERILIA (Sterile mycelium, 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 [facility] Report Status Final 03/11/2010 [facility] 02/11/2010 11:1 5 EDT 02/11/2010 12:09 EDT Albin Child MD MICROBIOLOGY - GENERAL ORDERABL ES Final Result Performing Organization Address [facility] Co de Phone Number [facility] [address] [place] [address] * AFB CULTURE/SMEAR, RESPIRATORY (02/11/2010 11:15 EDT) Specimen Description Bronchoalveolar Lavage [facility] Acid Fast No acid-fast bacilli seen [facility] Result No acid-fast bacilli isolated [facility] Report Status Final 03/26/2010 [facility] 02/11/2010 11:1 5 EDT 02/11/2010 12:09 EDT Albin Child MD MICROBIOLOGY - GENERAL ORDERABL ES Final Result Performing Organization Address [facility] Co de Phone Number [facility] [address] [place] [address] * BACTERIAL CULTURE/SMEAR, RESPIRATORY (02/11/2010 11:15 EDT) Specimen Description Bronchoalveolar Lavage [facility] Gram Smear Result Polys present Alveolar macrophages present Gram positive cocci present [facility] Result Greater than 100,000 CFU/ml STREPTOCOCCUS PNEUMONIAE [facility] Report Status Final 02/14/2010 [facility] 02/11/2010 11:1 5 EDT 02/11/2010 12:09 EDT Narrative Organism Antibiotic Method Susceptibility Greater than 100,000 cfu/ml streptococcus pneumoniae Penicillin (non meningitis) [facility]SE METHOD 8 Resistant Resistant Greater than 100,000 cfu/ml streptococcus pneumoniae Penicillin (meningitis) [facility] METHOD 8 Resistant Resistant Greater than 100,000 cfu/ml streptococcus pneumoniae Ceftriaxone (non-meningitis) [facility]HOUSE METHOD 2 Intermediate Intermediate Greater than 100,000 cfu/ml streptococcus pneumoniae Ceftriaxone (meningitis) [facility]HOUSE METHOD 2 Resistant Resistant Albin Child MD MICROBIOLOGY - GENERAL ORDERABL ES Final Result Performing Organization Address [facility] Co de Phone Number [facility] [address] [place] [address] * DIFFERENTIAL, LAVAGE FLUID (02/11/2010 11:15 EDT) Neutrophils, Fluid 66 % [facility] Lymphocytes, Fluid 10 % [facility] [place]/Macro, Fluid 24 % [facility] Fluid Comment BACTERIA PRESENT [facility] Note Cell count not available, consult Pathologist [facility] 02/11/2010 11:1 5 EDT 02/11/2010 11:40 EDT Albin Child MD GEN LAB UNIT COLLECT ORDERABLES Final Result Performing Organization Address [facility] Co de Phone Number [facility] [address] [place] [address] documented in this encounter Visit Diagnoses Diagnosis Bronchiectasis with acute exacerbation (HCC-CMS)- Primary Bronchiectasis with acute exacerbation Primary ciliary dyskinesia Situs inversus documented in this encounter Administered Medications Inactive Administered Medications - up to 3 most recent administrations Medication Order MAR Action Action Date Dose Rate Site acetaminophen (TYLENOL) chewable tablet 280 mg 280 mg (15 mg/kg ? 19.1 kg), oral, EVERY 4 HOURS PRN, Starting on Wed02/11/10 at 1810, Until Wed02/14/10 at 1643, Pain, Fever, Routine Given 02/13/2010 21:00 EDT 280 mg Given 02/12/2010 14:40 EDT 280 mg Given 02/11/2010 18:17 EDT 280 mg albuterol (PROVENTIL HFA, VENTOLIN HFA) inhaler 2-4 Puff 2-4 Puff, inhalation, 4 TIMES DAILY, First dose on Wed02/11/10 at 1700, Until Discontinued, Routine Given 02/14/2010 12:50 EDT 2 Puffs Given 02/14/2010 8:53 EDT 2 Puffs Given 02/13/2010 21:00 EDT 2 Puffs azithromycin (ZITHROMAX) suspension 200 mg 200 mg, oral, THREE TIMES WEEKLY (Once per day on Wed), 6 doses, First dose on Wed02/12/10 at 0900, Last dose on Wed02/24/10 at 0900, Routine Given 02/14/2010 10:00 EDT 200 mg Given 02/12/2010 9:00 EDT 200 mg cefTRIAXone (ROCEPHIN) 720 mg in sodium chloride 0.9 % 50 mL IVPB 720 mg (75 mg/kg/day ? 19.1 kg), intravenous, Administer over 30 Minutes, EVERY 12 HOURS, 14 doses, First dose (after last modification) on Wed02/11/10 at 1600, Last dose on Wed02/18/10 at 0900, Routine Given 02/13/2010 9 :00 EDT 720 mg Given 02/12/2010 21:08 EDT 720 mg Given 02/12/2010 8:30 EDT 720 mg cefTRIAXone (ROCEPHIN) 720 mg in sodium chloride 0.9 % 50 mL IVPB 720 mg, intravenous, Administer over 30 Minutes, USER SPECIFIED (2 times per day on Wed), 3 doses, First dose (after last modification) on Wed02/13/10 at 1999, Last dose on Wed02/14/10 at 2000, Routine Given 02/14/2010 7:00 EDT 720 mg Given 02/13/2010 20:00 EDT 720 mg fluticasone (FLOVENT) 110 mcg/Actuation inhaler 2 Puff 2 Puff, inhalation, 2 TIMES DAILY, First dose on Wed02/11/10 at 2100, Until Discontinued, Routine Given 02/14/2010 9:25 EDT 2 Puffs Given 02/13/2010 21:00 EDT 2 Puffs Given 02/13/2010 9:00 EDT 2 Puffs lansoprazole (PREVACID SOLUTAB) disintegrating tablet 15 mg 15 mg, oral, 2 TIMES DAILY BEFORE BREAKFAST & DINNER, First dose on Wed02/11/10 at 1600, Until Discontinued, Routine Given 02/14/2010 7:00 EDT 15 mg Given 02/13/2010 16:00 EDT 15 mg Given 02/13/2010 7:00 EDT 15 mg lidocaine-prilocaine (EMLA) 2.5-2.5 % cream topical (top), Once (Without Time Specified), 1 dose, Starting on Wed02/11/10 at 0858, Until Wed02/11/10 at 0835 Given 02/11/2010 8:35 EDT lidocaine-prilocaine (EMLA) 2.5-2.5 % cream 1 dose, Starting on Wed02/13/10 at 1535, Until [place] 02/13/10 at 1541 Given 02/13/2010 15:41 EDT PEG 3350-Electrolytes (MIRALAX) packet 8.5 g 8.5 g, oral, DAILY, First dose on Wed02/11/10 at 1515, Until Discontinued, Routine Given 02/13/2010 9:00 EDT 8.5 g Given 02/12/2010 9:00 EDT 8.5 g Given 02/11/2010 15:15 EDT 8.5 g sodium chloride 0.9 % (NS) infusion at 25 mL/hr, intravenous, CONTINUOUS, Starting on Wed02/11/10 at 1030, Until Wed02/11/10 at 1452, Routine, Pre Op Day of Surgery New Bag 02/11/2010 10:30 EDT 25 mL/hr sodium chloride 7 % solution for nebulization 4 mL 4 mL, nebulization, 2 TIMES DAILY, First dose on Wed02/12/10 at 0900, Until Discontinued, Routine Given 02/14/2010 8:53 EDT 4 mL Given 02/13/2010 21:00 EDT 4 mL Given 02/13/2010 8:19 EDT 4 mL sodium chloride sinus rinse Pack nasal, DAILY, First dose on Wed02/11/10 at 1515, Until Discontinued Given 02/13/2010 20:00 EDT Each documented in this encounter Discontinued Medications Medication Sig Discontinue Reason Start Date End Da te cefdinir (OMNICEF) 250 mg/5 mL suspension Take 250 mg by mouth 2 times daily. 02/13/2010 cefdinir (OMNICEF) 300 mg capsule Take 300 mg by mouth 2 times daily. 02/13/2010 AMOX TR/POTASSIUM CLAVULANATE (AUGMENTIN ORAL) Take by mouth. 02/13/2010 SULFAMETHOXAZOLE/TRIME THOPRIM (BACTRIM ORAL) Take 1 tsp by mouth daily. 02/13/2010 sodium chloride 3 % Take 4 mL by nebulization 2 times daily. 12/03/2008 02/13/2010 AZITHROMYCIN (ZITHROMAX ORAL) Take 1 tsp by mouth SEE ADMIN INSTRUCTIONS. Takes M-W-F 02/14/2010 documented as of this encounter Historical Medications * This list may reflect changes made after this encounter. cefdinir (OMNICEF) 250 mg/5 mL suspension Take 250 mg by mouth 2 times daily. 02/13/2010 cefdinir (OMNICEF) 300 mg capsule Take 300 mg by mouth 2 times daily. 02/13/2010 added in this encounter Active and Recently Administered Medications Times are shown in EDT. Scheduled Medication Order 02/12/2010 02/13/2010 02/14/2010 albuterol (PROVENTIL HFA, VENTOLIN HFA) inhaler 2-4 Puff (CANCELED) 2-4 Puff, inhalation, 4 TIMES DAILY, First dose on Wed02/11/10 at 1700, Until Discontinued, Routine 0800 (Given - Provider: Janiya Hi RT)1238 (Given - Provider: Janiya Hi RT)1700 (Given - Provider: Cornelia Zurita)2030 (Given - Provider: Cornelia Zurita) 0819 (Given - Provider: Keisha Abbott, RT)1225 (Given - Provider: Tiffanie Du, RT)1738 (Given - Provider: Keisha Abbott RT)2100 (Given - Provider: Cornelia Zurita) 0853 (Given - Provider: Brittany Ma, RT)1250 (Given - Provider: Brittany Ma, RT) azithromycin (ZITHROMAX) suspension 200 mg 200 mg, oral, THREE TIMES WEEKLY (Once per day on Wed), 6 doses, First dose on Wed02/12/10 at 0900, Last dose on Wed02/24/10 at 0900, Routine 0900 (Given - Provider: Ceci Burton) 1000 (Given - Provider: Jacob Acosta, RAÚL) cefTRIAXone (ROCEPHIN) 720 mg in sodium chloride 0.9 % 50 mL IVPB (CANCELED) 720 mg (75 mg/kg/day ? 19.1 kg), intravenous, Administer over 30 Minutes, EVERY 12 HOURS, 14 doses, First dose (after last modification) on Wed02/11/10 at 1600, Last dose on Wed02/18/10 at 0900, Routine 0830 (Given - Provider: Ceci Burton)2108 (Given - Provider: Manju Perez RN) 0900 (Given - Provider: Irina Griffin RN) cefTRIAXone (ROCEPHIN) 720 mg in sodium chloride 0.9 % 50 mL IVPB (CANCELED) 720 mg, intravenous, Administer over 30 Minutes, USER SPECIFIED (2 times per day on Wed), 3 doses, First dose (after last modification) on Wed02/13/10 at 2000, Last dose on Wed02/14/10 at 2000, Routine 1999 (Given - Provider: Manju Perez RN) 0700 (Given - Provider: Manju Perez, RAÚL) fluticasone (FLOVENT) 110 mcg/Actuation inhaler 2 Puff (CANCELED) 2 Puff, inhalation, 2 TIMES DAILY, First dose on Wed02/11/10 at 2100, Until Discontinued, Routine 09 (Given - Provider: Janiya Hi RT)2099 (Given - Provider: Corenlia Zurita) 0900 (Given - Provider: Keisha Abbott RT)2100 (Given - Provider: Cornelia Zurita) 0925 (Given - Provider: Brittany Ma, RT) lansoprazole (PREVACID SOLUTAB) disintegrating tablet 15 mg (CANCELED) 15 mg, oral, 2 TIMES DAILY BEFORE BREAKFAST & DINNER, First dose on Wed02/11/10 at 1600, Until Discontinued, Routine 0830 (Given - Provider: Ceci Burton)1630 (Given - Provider: Lorean Triana RN) 0700 (Given - Provider: Irina Griffin RN)1600 (Given - Provider: Irina Griffin RN) 0700 (Given - Provider: Manju Perez RN) PEG 3350-Electrolytes (MIRALAX) packet 8.5 g (CANCELED) 8.5 g, oral, DAILY, First dose on Wed02/11/10 at 1515, Until Discontinued, Routine 0900 (Given - Provider: Ceci Burton) 0900 (Given - Provider: Irina Griffni RN) 0900 (Not Given - Provider: Jacob Acosta RN - Reason: Other - Comment: Pt has diarrhea.) sodium chloride 7 % solution for nebulization 4 mL 4 mL, nebulization, 2 TIMES DAILY, First dose on Wed02/12/10 at 0900, Until Discontinued, Routine 0900 (Given - Provider: Janiya Hi, RT)2100 (Given - Provider: Cornelia Zurita) 0819 (Given - Provider: Keisha Abbott, RT)2100 (Given - Provider: Cornelia Zurita) 0853 (Given - Provider: Brittany Ma, RT) sodium chloride sinus rinse Pack nasal, DAILY, First dose on Wed02/11/10 at 1515, Until Discontinued 1999 (Not Given - Provider: Manju Perez RN - Reason: Patient/family refused - Comment: Pt asleep mom dosen't want to wake, will do first thing AM) 1999 (Given - Provider: Manju Perez, RAÚL) PRN Medication Order 02/12/2010 02/13/2010 02/14/2010 acetaminophen (TYLENOL) chewable tablet 280 mg (CANCELED) 280 mg (15 mg/kg ? 19.1 kg), oral, EVERY 4 HOURS PRN, Starting on Wed02/11/10 at 1810, Until Wed02/14/10 at 1643, Pain, Fever, Routine 1440 (Given - Provider: Lorena Triana RN) 2100 (Given - Provider: Yanira Mcpherson, RAÚL) No Frequency Medication Order 02/12/2010 02/13/2010 02/14/2010 lidocaine-prilocaine (EMLA) 2.5-2.5 % cream (COMPLETED) 1 dose, Starting on [place] 02/13/10 at 1535, Until [place] 02/13/10 at 1541 1541 (Given - Provider: Fritz Griffin RN) documented in this encounter Orders Medications Ordered That Janes ht Not Have Been Administered Count Last Ordered Date First Ordered Date cefTRIAXone (ROCEPHIN) 720 m g in sodium chloride 0.9 % 50 mL IVPB 4 02/14/2010 02/11/2010 acetaminophen (INFANT TYLENO L) 100 mg/1 mL Drops 191-287 mg 1 02/11/2010 acetaminophen (TYLENOL) 80 m g chewable tablet 1 02/11/2010 cefTRIAXone 716 mg IV syringe 40 mg/mL 1 lactated ringers (LR) infusion 1 02/11/2010 sodium chloride 0.9 % flush 10 mL 1 010 sodium chloride 0.9 % flush 5 mL 2 02/12/20 10 Consult Count Last Ordered Date First Orde red Date CONSULT NUTRITION 1 02/11/2010 Respiratory Care Count Last Ordered Date First Ordered Date METERED DOSE INHALER 17 02/14/2010 010 NEBULIZER TX INTERMITTENT 2 02/14/2010 VEST 10 02/14/2010 02/12/2010 CHEST PHYSIOTHERAPY 3 02/12/2010 02/12/20 10 Admission Count Last Ordered Date First Orde red Date NOTIFY PPS OF DISCHARGE COMPLETE 1 02/15/20 10 ADMIT TO INPATIENT 2 02/11/2010 NOTIFY PPS PATIENT TRANSFERRED OUT OF PACU 1 02/11/2010 PPS NOTIFICATION OF PATIENT ARRIVAL ON UNIT 1 02/11/2010 Transfer Count Last Ordered Date First Orde red Date TRANSFER PATIENT 1 02/11/2010 Discharge Count Last Ordered Date First Orde red Date DISCHARGE PATIENT 1 02/14/2010 documented in this encounter Care Teams Fish Roe Technician Relationship Specialty Start Date End Date Trell Sanon MD [address] [place] [address] PCP - General 04/10/09 documented as of this encounter
--- OUTSIDE RECORDS SUMMARY | 2024-03-30 21:51 | XMS_ITS | Encounter Summary ---
Author Organization [facility] Address [address] [place] [address] Care Team Providers Care Mounter Automatic Name Role Phone Trell Pittman MD Primary Care Provider [phone] Reason for Visit * Reason Onset Date Comments Other 03/17/2010 Medication quest ion Encounter Details Date Type Department Care Team (Late st Contact Info) Description 03/17/2010 Telephone [facility] Pediatric [facility]monary - [facility] [address] [place] [address] James Franklin MD [address] [place] [address] Other (Medication question) Social History Tobacco Use Types Packs/Day Years [...] * Telephone Encounter - Shanel Boone - 03/17/2010 1726 EDT I spoke to Lucy. She reports that Rosario just finished an oral antbx and continues with a cough and junky nose. Per Dr. Franklin: She can continue with the Tyl w/ codeine for another day or two. On Wed when PCP is back in the office, she should be seen and possibly get a sinus CT. Dr. Franklin to talk to PCP. * Telephone Encounter - Eloisa Arellano - 03/17/2010 1602 EDT Rosario has a cold and is coughing. She just ended her antibiotic(?) Lucy is giving her Tylenol with Codeine. She would like to know how long she can continue to give her that. documented in this encounter Plan of Treatment Upcoming Encounters Date Type Department Care Team (Late st Contact Info) Description 04/24/2024 15:30 EST Telemedicine [facility] Pediatric Pulmonary - [address] [id number] Lucy Rodgers MD [address] [place] [phone] documented as of this encounter Visit Diagnoses Not on filedocumented in this encounter Care Teams Mounter Automatic Relationship Specialty Start Date End Date Trell [place] [address] PCP - General 04/10/09 documented as of this encounter
--- OUTSIDE RECORDS SUMMARY | 2024-03-30 21:51 | XMS_ITS | Encounter Summary ---
Author Organization [facility] Address [address] [place] [address] Care Team Providers Care Venue Attendant Name Role Phone Trell Pittman MD Primary Care Provider [phone] Reason for Visit * Reason Comments Constipation Gastroesophageal Reflux Encounter Details Date Type Department Care Team (Late st Contact Info) Description 12/22/2010 10:00 EDT Office Visit [facility]ty Center - [facility] [address] [place] [address] Sherley Santana, TILE DESIGNER [address] [phone] Primary ciliary dyskinesia; GERD (gastroesophageal reflux disease); Constipation, chronic; Dysphagia Social History Tobacco Use Types Packs/Day Years [...] Sign Reading Time Taken Comments Blood Pressure 106/55 12/22/2010 1010 EDT Pulse 82 12/22/2010 1010 EDT Temperature - - Respiratory Rate 16 12/22/2010 1010 EDT Oxygen Saturation 100% 12/22/2010 1010 EDT Inhaled Oxygen Concentration - - Weight 20 kg (44 lb 1.5 oz) 12/22/2010 1010 EDT Height 120.7 cm (3' 11.52) 12/22/2010 1010 EDT Body Mass Index 13.73 12/22/2010 1010 EDT Body Mass Index Percentile 9.67% 12/22/2010 101 0 EDT Growth Chart: [facility] (Girls, 2- 20 Years) documented in this encounter Mental Status * Because of a physical, mental, or emotional condition, do you have serious difficulty concentrating, remembering, or making decisions? (5 years old or older) Answer Entry Date Author Yes 02/13/2010 0:00 EDT Mohit Yusuf RN documented in this encounter Patient Instructions * Patient Instructions* Sherley Santana - 12/22/2010 10:43 EDT documented in this encounter Progress Notes * Sherley Santana - 12/22/2010 1011 EDT Problem: Chief Complaint Patient presents with ??? Constipation ??? Gastroesophageal Reflux History obtained from mother and the patient. Subjective: Rosario Ace returns to the pediatric GI and nutrition clinic for a follow up visit. This is her first visit since her initial visit on 08/22/10. At that time, she was started on miralax, benefiber and Prevacid. Her abdominal pain has significantly improved. She no longer wakes at night with pain and has not had any further episodes of severe abdominal pain. She continues to have mild abdominal pain 1-2 times weekly. The abdominal pain is worse for 24 hours if she misses a dose of Prevacid. She has a good appetite and eats well. She enjoys fruits and vegtables. She has had issues with food getting stuck in her throat since she began eating foods. She has to cut up meat into very small pieces to eat it. The meat occasionally gets stuck in her throat. Peanut butter will also get stuck at times also. When the food gets stuck, she gags until the food goes down. This has improved since starting the Prevacid, but it continues. She was previously having hard stools 1-2 times weekly. She has daily stools on the miralax and fiber, but has an episode of loose stools once every 3-4 days. She has hard, infrequent stools if she misses a dose of miralax. She routinely takes one capful of miralax daily. If her stools are hard or infrequent, she gets 1/2 of a capful in the evening in addition to the capful in the morning. She continues to occasionally withhold her stool. She is taking one chewable fiber gummy daily. Current outpatient prescriptions Medication Sig Dispense Refill ??? lansoprazole (PREVACID) 30 mg capsule Take [...] a week. Patient Active Problem List Diagnoses Code ??? 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 Primary ciliary dyskinesia 759.3D ??? Asthma 493.90AE ??? GERD (gastroesophageal reflux disease) 530.81S ??? Constipation, chronic 564.00AE Objective: BP 106/55 Pulse 82 Resp 16 Ht 120.7 cm (47.52) Wt 20 kg (44 lb 1.5 oz) BMI 13.73 kg/m2 SpO2 100% Body mass index is 13.73 kg/(m^2). 9.67% of growth percentile based on BMI-for-age. Physical Examination WD WN No distress No rashes, skin lesions or ulcers; no discoloration Skin warm and dry, normal turgor Neck LN palpated, not enlarged Full neck ROM, tracheal midline position No thyromegaly Sclera white, conjunctivae clear, no lid lag No cataracts seen No ear scars, lesions, or masses Lips pink, symmetrical, gums pink, good dentition Breasts symmetrical No chest lumps, masses, discharge or tenderness Respiration even and un-labored Lungs clear/equal, no adventitious sounds bilaterally Peripheral perfusion normal S1 and S2 not exaggerated or diminished Liver and spleen are without tenderness or enlargement No hernias Judgement and insight are WNL Alert and Oriented X 3 Other physical examination Assessment and Plan: Rosario Ace is a 5 y.o. female with ciliary dyskinesia, constipation, and dysphagia. Will schedule an endoscopy and colonoscopy in coordination with a bronchoscopy by pulmonology. Increase the fiber to 2 fiber gummies daily. Split the miralax into 3 teaspoons twice daily. Visit questionnaire and EMR was reviewed. Patient Education: Method: verbal Taught to family No barriers Family verbalized understanding. documented in this encounter Plan of Treatment Upcoming Encounters Date Type Department Care Team (Late st Contact Info) Description 04/24/2024 15:30 EST Telemedicine [facility] Pediatric Pulmonary - [address] [address] Lucy Rodgers MD [address] [place] [phone] documented as of this encounter Visit Diagnoses Diagnosis Primary ciliary dyskinesia Situs inversus GERD (gastroesophageal reflux disease) Esophageal reflux Constipation, chronic Unspecified constipation Dysphagia Dysphagia, unspecified documented in this encounter Discontinued Medications Medication Sig Discontinue Reason Start Date End Da te amoxicillin-clavulanat e (AUGMENTIN) 400-57 mg/5 mL suspension Take by mouth. 1 tsp BID Therapy completed 12/22/2010 ciprofloxacin-dexameth asone (CIPRODEX) otic suspension Place 4 Drops in ear(s) 2 times daily. Therapy completed 12/22/2010 Sodium Chloride (HYPER-ROSA) 7 % Nebu Inhale 4 mL as directed daily. Patient Stopped Taking 07/29/2010 12/22/2010 documented as of this encounter Care Teams Venue Attendant Relationship Specialty Start Date End Date Trell Pittman MD [address] [facility] [place] [address] PCP - General 04/10/09 documented as of this encounter
--- OUTSIDE RECORDS SUMMARY | 2024-03-30 21:52 | XMS_ITS | Encounter Summary ---
Author Organization [facility] Address [address] [place] [address] Care Team Providers Care Design Specialist Name Role Phone Gen Jack MD Primary Care Provider Jamaal shi Encounter Details Date Type Department Care Team (Latest Contact Info) Description 11/02/2008 11:19 EDT - 11/02/2008 23:59 EDT Hospital Encounter [facility] Pulmonary Function Lab - [facility] [address] [place] [address] Unknown, Provider, Room-3, Bronch/Stress Discharge Disposition: Home or Self Care Social History Tobacco Use Types Packs/Day Years Used Date Smoking Tobacco: Never Assessed Comments:Exposed to househol d smoke on occasion Comments Unknown Sex and Gender Information Value Date Recorded Sex Assigned at Not on file Legal Sex Female 18:39 EST Gender Identity Not on file Sexual Orientation Not on file documented as of this encounter Medications at Time of Discharge cefdinir (OMNICEF) 300 mg capsule Take 250 mg by mouth 2 times daily. 250 mg/ml, takes 1/2 tsp 9 fluticasone (FLOVENT) 110 mcg/Actuation inhaler Inhale 2 Puffs as directed every 12 hours. 9 lansoprazole (PREVACID) 15 mg capsule Take 15 mg by mouth 2 times daily. 9 levalbuterol (XOPENEX) 0.63 mg/3 mL nebulization Take 0.63 mg by nebulization every 4 hours as needed for Wheezing. 9 montelukast (SINGULAIR) 5 mg chewable tablet Take 5 mg by mouth at bedtime. 9 Multivitamins with Minerals Tab Take 1 Tab by mouth three times a week. 6 Sodium Fluoride (ACT FLUORIDE) 0.05 % Soln Place 1 Units onto teeth daily. 9 SODIUM FLUORIDE ORAL Take 1 Tab by mouth. 9 documented as of this encounter Discharge Disposition Disposition Code Departure Means Destination Home or Self [facility]sp documented in this encounter Plan of Treatment Upcoming Encounters Date Type Department Care Team (Late st Contact Info) Description 04/24/2024 15:30 EST Telemedicine [facility] Pediatric Pulmonary - [address] [phone] Lucy Rodgers MD [address] [place] [phone] documented as of this encounter Visit Diagnoses Not on filedocumented in this encounter Care Teams Design Specialist Relationship Specialty Start Date End Date Gen Jack MD PCP - General 10/12/08 04/09/09 documented as of this encounter
--- OUTSIDE RECORDS SUMMARY | 2024-03-30 21:52 | XMS_ITS | Encounter Summary ---
Author Organization [facility] Address [address] [place] [address] Care Team Providers Care Monitoring Coordinator Name Role Phone Gen Jack MD Primary Care Provider Trell Domingo MD Primary Care Provider [phone] Gen Jack MD Primary Care Provider Jamaal shi Encounter Details Date Type Department Care Team (Late st Contact Info) Description 08/12/2007 Before PRISM Converted Visit (Maple) [facility] - Maple conversion [address] [place] [address] Felix Spears MD [address] [facility], [address] [place] [phone] Social History Tobacco Use Types Packs/Day Years Used Date Smoking Tobacco: Never Assessed Comments Unknown Sex and Gender Information Value Date Recorded Sex Assigned at Not on file Legal Sex Female 18:39 EST Gender Identity Not on file Sexual Orientation Not on file documented as of this encounter Progress Notes * Felix Spears MD - 02/06/2009 0404 EDT DIVISION OF OTOLARYNGOLOGY PROGRESS/FOLLOWUP NOTE - 08/12/2007 SUBJECTIVE Patient has had chronic purulent rhinitis over the past nine days. She is not getting any better. She has had no ear difficulties. Speech and language are normal. OBJECTIVE Healthy, alert, cooperative female in no distress. Both tubes are in place. There is no infection or drainage. Tympanograms show high volume and flat bilaterally. Ear canals are normal. Oral cavity is normal. Palpation of the neck reveals bilateral jugulodigastric adenopathy. Nasal exam reveals a purulent rhinitis with crusting around both nares. ASSESSMENT Acute sinusitis, serous otitis media, recurrent otitis media. PLAN Septra 7.5 mL p.o. b.i.d. times 14 days, and some saline nasal irrigation. The patient was given a kit. Follow up here in three months. Signed by Felix Spears MD 08/17/2007 14:39 Felix Spears MD - Felix Spears MD - [facility] Job ID: [id number] Doc ID: [id number] cc: Gen Jack MD documented in this encounter Plan of Treatment Upcoming Encounters Date Type Department Care Team (Late st Contact Info) Description 04/24/2024 15:30 EST Telemedicine [facility] Pediatric Pulmonary - [address] [address] Lucy Rodgers MD [address] [place] [phone] documented as of this encounter Visit Diagnoses Not on filedocumented in this encounter Care Teams Monitoring Coordinator Relationship Specialty Start Date End Date Gen Jack MD PCP - General 10/12/08 04/09/09 Trell Pittman MD [address] [place] [address] [place] [address] PCP - General 10/05/08 10/11/08 Gen Jack MD PCP - General 09/06/08 10/04/08 documented as of this encounter
--- OUTSIDE RECORDS SUMMARY | 2024-03-30 21:52 | XMS_ITS | Encounter Summary ---
Author Organization [facility] Address [address] [place] [address] Care Team Providers Care Road Worker Name Role Phone Unavailable Primary Care Provider Unavailabl e Encounter Details Date Type Department Care Team (Late st Contact Info) Description 02/09/2008 14:11 EDT Hospital Encounter [address] [address] Melody Lyon MD PhD [address] [place] [phone] Discharge Disposition: Auto Discharge Social History Tobacco Use Types Packs/Day Years Used Date Smoking Tobacco: Never Assessed Comments Unknown Sex and Gender Information Value Date Recorded Sex Assigned at Not on file Legal Sex Female 18:39 EST Gender Identity Not on file Sexual Orientation Not on file documented as of this encounter Discharge Disposition Disposition Code Departure Means Destination Auto Discharge documented in this encounter Plan of Treatment Upcoming Encounters Date Type Department Care Team (Late st Contact Info) Description 04/24/2024 15:30 EST Telemedicine [facility] Pediatric Pulmonary [address] [phone] Lucy Rodgers MD [address] [place] [phone] documented as of this encounter Procedures Procedure Name Priority Date/Time Associated Diagnosis Comments ZZS PNEUM 23 SEROTYPES Routine 8 14:55 EDT ZZRAST DOG EPITHLIUM Routine 02/09/2008 14:55 EDT RAST D PTERONYSSINUS Routine 02/09/2008 14:55 EDT RAST DERM FARINAE Routine 02/09/2008 14: 55 EDT RAST CAT EPITHELIUM Routine 02/09/2008 1 4:55 EDT RAST MILK Routine 02/09/2008 14:55 EDT documented in this encounter Results * S PNEUM 23 SEROTYPES (02/09/2008 14:55 EDT) Serotype 1 (1) 2.2Reference range: <8.2 Unit: mcg/mL [facility] Serotype 2 (2) 2.4Reference range: <7.4 Unit: mcg/mL [facility] Serotype 3 (3) 5.3Reference range: <6.9 Unit: mcg/mL [facility] Serotype 4 (4) 103.5Reference range: <4.1 Unit: mcg/mL [facility] Serotype 5 (5) 2.2Reference range: <28.8 Unit: mcg/mL [facility] Serotype 8 (8) 8.0Reference range: <13.3 Unit: mcg/mL [facility] Serotype 9N (9) 42.8Reference range: <16.6 Unit: mcg/mL [facility] Serotype 12F (12) <0.1Reference range: <4.3 Unit: mcg/mL [facility] Serotype 14 (14) 114.6Reference range: <22.9 Unit: mcg/mL [facility] Serotype 17F (17) 4.5Reference range: <44.8 Unit: mcg/mL [facility] Serotype 19 (19F) 234.5Reference range: <16.0 Unit: mcg/mL [facility] Serotype 20 (20) 1.4Reference range: <12.1 Unit: mcg/mL [facility] Serotype 22F (22) 5.7Reference range: <32.4 Unit: mcg/mL [facility] Serotype 23F (23) 69.3Reference range: <49.0 Unit: mcg/mL [facility] Serotype 6B (26) 175.6Reference range: <15.3 Unit: mcg/mL [facility] Serotype 10A (34) 1.7Reference range: <25.5 Unit: mcg/mL [facility] Serotype 11A (43) 40.2Reference range: <9.7 Unit: mcg/mL [facility] Serotype 7F (51) 1.9Reference range: <30.8 Unit: mcg/mL [facility] Serotype 15B (54) 0.3Reference range: <12.8 Unit: mcg/mL [facility] Serotype 18C (56) 43.0Reference range: <7.0 Unit: mcg/mL [facility] Serotype 19A (57) 1.6Reference range: <28.1 Unit: mcg/mL [facility] Serotype 9V (68) 152.3Reference range: <44.0 Unit: mcg/mL [facility] Serotype 33F (70) 15.4Reference range: <7.5 Unit: mcg/mL Please note change in reporting effective 09/27/2007. ? Analyte Specific Reagent ? This test was developed and its performance characteristics ? determined by [facility] Pathology, [place] [facility]. This test has not been cleared or ? approved by the U.S. Food and Drug Administration. ? Performed or Referred by: [facility] Dpt of Lab Med and Path, [address] ? [place] [address], Lab Dir: Oleg Young III, ? MD ? [facility] 02/09/2008 14:5 5 EDT 02/09/2008 14:56 EDT us Melody Lyon MD PhD IMMUNOLOGY AND SEROLOGY ORDERABLES Final Result [facility] [address] [place] [address] * RAST MILK (02/09/2008 14:55 EDT) RAST Milk 0.60Unit: kU/L Class 1 (Equivocal 0.35-0.70) ? Performed by: [facility] Lab Med and [facility] [address] [place], [place] [address], Lab Dir: ??Oleg Young ? III, M.D. ? [facility] 02/09/2008 14:5 5 EDT 02/09/2008 14:56 EDT us Melody Lyon MD PhD IMMUNOLOGY AND SEROLOGY ORDERABLES Final Result Performing Organization Address City/State/[facility] Co de Phone Number [facility] [address] [place] [address] * RAST Genesis MOOREINUS (02/09/2008 14:55 EDT) RAST D.Pteronyssin us <0.35Unit: kU/L Class 0 (Negative <0.35) ? Performed by: [facility] Med and Path [address], [place] [address], Lab Dir: ??Oleg Young ? III, M.D. ? [facility] 02/09/2008 14:5 5 EDT 02/09/2008 14:56 EDT Melody Lyon MD PhD IMMUNOLOGY AND SEROLOGY ORDERABLES Final Result Performing Organization Address [facility] de Phone Number [facility] [address] [place] [address] * RAST DOG EPITHLIUM (02/09/2008 14:55 EDT) RAST Dog Epithelium <0.35Unit: kU/L Class 0 (Negative <0.35) ? Performed by: [facility] [address] , [place] [address], Lab Dir: ??Oleg Young ? III, M.D. ? [facility] 02/09/2008 14:5 5 EDT 02/09/2008 14:56 EDT us Melody Lyno MD PhD IMMUNOLOGY AND SEROLOGY ORDERABLES Final Result Performing Organization Address [facility] de Phone Number [facility] [address] [place] [address] * RAST DERM FARINAE (02/09/2008 14:55 EDT) RAST House Dust Mites <0.35Unit: kU/L Class 0 (Negative <0.35) ? Performed by: [facility] Lab Med and [facility] [address], [place] [address], Lab Dir: ??Oleg Young ? III, M.D. ? [facility] 02/09/2008 14:5 5 EDT 02/09/2008 14:56 EDT Melody Lyon MD PhD IMMUNOLOGY AND SEROLOGY ORDERABLES Final Result [facility] [address] [place] [address] * RAST CAT EPITHELIUM (02/09/2008 14:55 EDT) RAST Cat Epithelium <0.35Unit: kU/L Class 0 (Negative <0.35) ? Performed by: [facility] D[facility] Lab Med and Path [address], [place] [address], Lab Dir: ??Oleg Young ? III, M.D. ? FARSHAD DOMINGUEZ 02/09/2008 14:5 5 EDT 02/09/2008 14:56 EDT us Melody Lyon MD PhD IMMUNOLOGY AND SEROLOGY ORDERABLES Final Result Performing Organization Address City/State/[facility] Co de Phone Number [facility] [address] [place] [address] documented in this encounter Visit Diagnoses Not on filedocumented in this encounter
--- OUTSIDE RECORDS SUMMARY | 2024-03-30 21:52 | XMS_ITS | Encounter Summary ---
Author Organization [facility] Address [address] [place] [address] Care Team Providers Care Supervisor Blueprinting And Photocopy Name Role Phone Unavailable Primary Care Provider Unavailabl e Encounter Details Date Type Department Care Team (Late st Contact Info) Description 04/24/2008 13:28 EST Hospital Encounter [address] [phone] Felix Spears MD [address] [place] [address], [address] [place] [phone] Discharge Disposition: Auto Discharge Social [...] Info) Description 04/24/2024 15:30 EST Telemedicine [facility] Pediatric Pulmonary - [address] [phone] Lucy Rodgers MD [address] [place] [phone] documented as of this encounter Visit Diagnoses Not on filedocumented in this encounter
--- OUTSIDE RECORDS SUMMARY | 2024-03-30 21:52 | XMS_ITS | Encounter Summary ---
Author Organization [facility] Address [address] [place] [address] Care Team Providers Care Biotech Production Specialist Name Role Phone Virgie Mcclure MD Primary Care Provider Jamaal shi Encounter Details Date Type Department Care Team (Late st Contact Info) Description 03/15/2009 9:16 EDT - 03/15/2009 23:59 EDT Hospital Encounter [facility] [address] [place] [address] Melody Lyon MD PhD [address] [place] [phone] Discharge Disposition: Home or Self Care Social [...] this encounter Medications at Time of Discharge lactobacillus acidophilus & bulgar (LACTINEX) 1 million cell Chew Take 1 Tab by mouth 3 times daily with meals. qs 14 days 0 12/03/2008 0 Multivitamins with Minerals Tab Take 1 Tab by mouth three times a week. 6 sodium chloride 3 % Take 4 mL by nebulization 2 times daily. qs 1 month 1 12/03/2008 0 documented as of this encounter Discharge Disposition Disposition Code Departure Means Destination Home or Self Intermediate documented in this encounter Plan of Treatment Upcoming Encounters Date Type Department Care Team (Late st Contact Info) Description 04/24/2024 15:30 EST Telemedicine [facility] Pediatric Pulmonary - [facility] [address] [place], [place] [address] Lucy Rodgers MD [address] [place] [phone] documented as of this encounter Procedures Procedure Name Priority Date/Time Associated Diagnosis Comments SURGICAL PATHOLOGY Routine 04/10/2009 0: 00 EST MISCELLANEOUS TEST, WHOLE BLOOD Routine 03/15/2009 10:24 EDT documented in this encounter Results * SURGICAL PATHOLOGY (04/10/2009 0:00 EST) Pathology Report: SURGICAL PATHOLOGY REPORT ? Reports generated via electronic interface contain original data; ? however they are lacking the format of the original report. ? Caution should be taken when reading/interpreti ng unformatted reports. ? Name: ? ROSARIO HART ? Accession #: ? [id number] ? : ? 2005 (Age: 3) ??F ?Collect Date: ? 04/10/2009 ? Location: ? [facility] ? Receive Date: ? 04/10/2009 ? Provider: ALBIN CHILD MD ? Copy to: WHITNEY N MADELINE MD ? VIRGIE MCCLURE MD ? ELVIA D KANTROWITZ MD ? SEND OUT TEST SUMMARY REPORT ? Date Ordered: ? 04/10/2009 ? Status: ?? Signed Out ?Date Complete: ? 05/01/2009 ? By: ??Eloisa Hier ? Date Reported: ? 05/01/2009 ? Interpretation ? EM [id number], nasal: ? - Non-corporate representative biopsy. ? Comment ? Semi-thin sections demonstrate insufficient numbers of ciliated cells to ?? permit evaluation. ??Should additional specimens become available for review, we would be willing to reassess the case. ? This was interpreted by Wing Wang M.D[facility] ??(Dr. Desir)/[facility] ? Description ? Received: ? Nasal biopsy for EM ??ultrastructural analysis to R/O PCD ? Clinical History: ? Recurrent pneumonia, otitis, sinusitis; R/O ciliary dyskinesia ? Gross description: ? Received in Karmildredy's solution labelled Rosario Hart is a 0.4 x 0.3 x 0.3 cm juan-pink soft tissue. ??The specimen is entirely submitted to the [place] [facility] for ciliary dyskinesis electron microscopy studies. ??/eliana ? Document reviewed and electronically signed by: ? Caren Desir, MD ? Report date: 05/01/2009 ? By the signature above, the attending physician certifies that he/she has ? personally conducted a gross and/or microscopic examination of the described ? specimens and rendered or confirmed the above diagnosis. ? End of Report ? FARSHAD DOMINGUE[facility] 04/10/2009 04/10/2009 12: 14 EST us Albin Child MD PATHOLOGY ORDERABLES Final Resu lt [facility] [address] [place] [address] * MISCELLANEOUS TEST, WHOLE BLOOD (03/15/2009 10:24 EDT) Test Name NEUTROPHIL OXIDATIVE LUCIUS [facility] Result Neutrophil Oxidative Burst, B ? Neutrophil Oxidative Burst ??Normal ? Reference: Normal ? Interpretation ? Not consistent with CGD. ? Reviewed by SB ? REPORTED 03/16/2009 16:49 ? * Performing Site: ? [facility] ? [address] [place] [address] ? Journeyman Operator Assistant: Oleg Young, III, M.D. ? [facility] 03/15/2009 10:2 4 EDT 03/15/2009 15:33 EDT Melody Lyon MD PhD CHEMISTRY & BLOOD GAS O RDERABLES Final Result Performing Organization Address City/State/[facility] Co de Phone Number [facility] [address] [place] [address] documented in this encounter Visit Diagnoses Not on filedocumented in this encounter Care Teams Biotech Production Specialist Relationship Specialty Start Date End Date Virgie Mcclure MD PCP - General 10/12/08 04/09/09 documented as of this encounter
--- OUTSIDE RECORDS SUMMARY | 2024-03-30 21:52 | XMS_ITS | Encounter Summary ---
Author Organization [facility] Address [address] [place] [address] Care Team Providers Care Liability Claims Representative Name Role Phone Gen Jack MD Primary Care Provider Jamaal shi Encounter Details Date Type Department Care Team (Late st Contact Info) Description 11/02/2008 6:34 EDT - 11/02/2008 22:23 EDT Hospital Encounter [facility] Perioperative Services- [facility] [address], [place] [id number] James Franklin MD [address] [place] [address] Discharge Disposition: Home or Self [...] Taken Comments Blood Pressure - - Pulse 103 11/02/2008 0900 EDT Temperature 36.5 ??C (97.7 ??F) 11/02/2008 1000 EDT Respiratory Rate 30 11/02/2008 1000 EDT Oxygen Saturation 100% 11/02/2008 1000 EDT Inhaled Oxygen Concentration - - Weight 17.2 kg (37 lb 14.7 oz) 11/02/2008 0700 E DT Height - - Body Mass Index - - documented in this encounter Medications at Time [...] documented in this encounter Progress Notes * Krystal Hdz RN - 11/02/2008 0950 EDT Now awake, alert and content. Eating a popsicle. Krystal Hdz RN * Krystal Hdz RN - 11/02/2008 0930 EDT Patient is settled in pacu with parents at bedside. Asleep. Comfortable respiratory pattern. Adequate o2 sat on blow by Krystal Hdz rn * Isabel Porter RN - 11/02/2008 0712 EDT Rosario arrived to with parents, flow of day explained and ?'s answered. CCLS Vaishali Chan in to provide education. documented in this encounter Procedure Notes * Teresa Escamilla RN - 11/02/2008 0758 EDT Pt arrived for Bronch in MPU3 @0753 with parents present. Pt sedated for procedure and parents brought to waiting room. Foster moment was done. Procedure began and was completed with no issues. Pt brought to PACU. * James Franklin MD - 11/02/2008 0000 EDT BRONCHOSCOPY PROCEDURE REPORT SERVICE DATE: 11/02/2008 ATTENDING BRONCHOSCOPIST: James Franklin MD CAR SEAT COVERER: REFERRING PHYSICIAN: James Franklin MD PROCEDURE Flexible bronchoscopy with bronchoalveolar lavage, ciliary biopsies. ANESTHESIA Intravenous propofol was administered by Dr Amada Flores. PREPROCEDURE DIAGNOSIS Persistent cough and wheeze. POSTPROCEDURE DIAGNOSIS Persistent cough and wheeze. INDICATIONS Rosario is 2-year-old girl with a history of refractory cough and wheeze. Her symptoms do improve with prolonged periods of antibiotics. She has had a suboptimal response to bronchodilators and steroids and continues to have raspy sounding breathing and a productive sounding cough. She also has chronic rhinitis and status post PE tube placement and adenoidectomy. NARRATIVE A 3.8 mm flexible bronchoscope was passed through the nares. Purulent secretions were present in the nasal passages. The larynx was unremarkable in terms of structure. The vocal cords were mildly edematous. Lidocaine 2%, 0.5 mL was instilled at the cords. Subglottic space was free of lesions. The trachea was mildly narrowed in the anterior/posterior direction without any pulsatile compression evident. Purulent secretions were seen in the mid to distal trachea and this continued down into the mainstem bronchi. An additional 0.5 mL of 1% lidocaine was instilled at margarita. The airways were remarkable for complete obstruction of the right mainstem bronchus with purulent secretions. Similarly the left lower lobe bronchus was completely obstructed by pus. Vigorous suctioning was performed and the scope became obstructed nirali couple of occasions. BAL was performed with 10 mL aliquots of nonbacteriostatic normal saline in the right upper lobe, the right lower lobe and the left lower lobe. There was a return of 20 mL of purulent fluid with thick green mucus plugs present. The scope was then removed. One tracheal biopsy was obtained with pediatric biopsy forceps from the margarita. Then, a cytology brush was used to obtain nasal ciliary brush biopsy from bilateral inferior turbinates in both nares. The patient tolerated the procedure well. FINDINGS Diffuse evidence of purulent secretions with chronic inflammatory changes concerning for bronchiectasis. COMPLICATIONS None. SPECIMENS Microbiology for bacterial, fungal and AFB culture and smear, to cytopathology for lipid laden macroplasia and cell differential and biopsies to pathology for electron microscopy to determine ciliaryultrastructure. Unless otherwise noted, there were no complications, no blood loss, cultures obtained, specimens removed, or drains retained. James Franklin MD Division of Pediatric Pulmonology [phone] - James Franklin MD Todd - juan Job ID: [id number] Document ID: [id number] cc: MD James Kumari MD documented in this encounter Consult Notes * Vaishali Chan - 11/02/2008 1438 EDT S: Hydramatic Mechanic consulted for procedural education and support for Bronchoscopy. O: Rosario arrived to [facility] with mom, dad, and stuffed horse Buttercup. A: Rosario is shy to strangers. It takes her time to warm up. She still listens well even though she isn't responsive towards you. Once she is familiar with you she has great interactions. Rosario had no problems with her vitals. She had not experienced and I.V before. Child Life was consulted for education and medical play. Child Life talked with Rosario about her I.V start/ plan. Rosario, mom, d ad, and Child Life read a mallory book, did an I-Spy, and blew bubbles with the light fan before/during/after IV start. Rosario did a great job! She loves [place] and fell asleep watching a mallory movie. P: (1) Hydramatic Mechanic will continue to follow Rosario throughout her procedural day. (2) Hydramatic Mechanic will continue to provide medical play/education when needed. DIANE Strange [facility] Child Life Department Pager#[phone] documented in this encounter OR Notes * Anesthesia Procedure Notes - NUT DEHYDRATOR OPERATOR, SCAN 2 - 12/01/2012 1345 EDT * Anesthesia Preprocedure Evaluation - Inpatient, Physician - 11/02/2008 0730 EDT documented in this encounter Miscellaneous Notes * Scanned Note-Null - Inpatient, Physician - 11/17/2008 1358 EDT documented in this encounter Plan of Treatment Upcoming Encounters Date Type Department Care Team (Late st Contact Info) Description 04/24/2024 15:30 EST Telemedicine [facility] Pediatric Pulmonary - [facility] [address], [place] [phone] Lucy Rodgers MD [address] [place] [address] documented as of this encounter Procedures Procedure Name Priority Date/Time Associated Diagnosis Comments AFB CULTURE/SMEAR, RESPIRATORY Routine 11/02/2008 7:55 EDT DIFFERENTIAL, LAVAGE FLUID Routine 11/02/2008 7:55 EDT FUNGUS CULTURE, RESPIRATORY Routine 11/02/2008 7:55 EDT BACTERIAL CULTURE/SMEAR, RESPIRATORY Routine 11/02/2008 7:55 EDT ELECTRON MICROSCOPY Routine 11/02/2008 7 :15 EDT documented in this encounter Results * FUNGUS CULTURE, RESPIRATORY (11/02/2008 7:55 EDT) Specimen Description Bronchoalveolar Lavage [facility] Result MYCELIA STERILIA (Sterile mycelium, 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 This mould is a saprophytic fungus. It has been reported rarely as a cause of infection. Its etiologic role is not certain, but infection is morelikely if the patient's host defenses are compromised. We suggest evaluationof clinical data. Repeated isolation of a fungus increases the likelihood that it is etiologically related. Consider reculturing the specimen. Consult the pathologist if there are further questions. [facility] Report Status Final 11/30/2008 [facility] 11/02/2008 7:55 EDT 11/02/2008 9:07 EDT James Franklin MD MICROBIOLOGY - GENERAL ORDERABL ES Final Result Performing Organization Address [facility] Co de Phone Number [facility] [address] [place] [address] * AFB CULTURE/SMEAR, RESPIRATORY (11/02/2008 7:55 EDT) Specimen Description Bronchoalveolar Lavage [facility] Acid Fast No acid-fast bacilli seen [facility] Result No acid-fast bacilli isolated [facility] Report Status Final 12/17/2008 [facility] 11/02/2008 7:55 EDT 11/02/2008 9:07 EDT James Franklin MD MICROBIOLOGY - GENERAL ORDERABL ES Final Result Performing Organization Address City/[facility] Co de Phone Number [facility] [address] [place] [address] * BACTERIAL CULTURE/SMEAR, RESPIRATORY (11/02/2008 7:55 EDT) Specimen Description Bronchoalveolar Lavage [facility] Gram Smear Result Polys present Squamous epithelial cells Alveolar macrophages present Mixed gram positive and gram negative organisms present , intraleukocytic organisms seen [facility] Result Greater than 100,000 CFU/ml HAEMOPHILUS INFLUENZAE, penicillin, ampicillin, and piperacillin resistant (beta lactamase positive). Greater than 100,000 CFU/ml MORAXELLA CATARRHALIS (BRANHAMELLA CATARRHALIS) Infections caused by Moraxella catarrhalis can usually be treated successfully with amoxicillin-clavul anate, extended spectrum cephalosporins, macrolides, and fluoroquinolones. ?? It is resistant to penicillin, ampicillin,vancomy clay, clindamycin, nafcillin, and the first-generation cephalosporins. 10,000 to 100,000 CFU/ml STREPTOCOCCUS PNEUMONIAE [facility] Report Status Final 11/07/2008 [facility] 11/02/2008 7:55 EDT 11/02/2008 9:07 EDT Narrative Organism Antibiotic Method Susceptibility 10,000 to 100,000 cfu/ml streptococcus pneumoniae Penicillin [facility] IN-HOUSE METHOD 2 Resistant 10,000 to 100,000 cfu/ml streptococcus pneumoniae Ceftriaxone (non-meningitis) [facility] IN-HOUSE METHOD 1 Susceptible 10,000 to 100,000 cfu/ml streptococcus pneumoniae Ceftriaxone (meningitis) [facility] IN-HOUSE METHOD 1 Intermediate us James Franklin MD MICROBIOLOGY - GENERAL ORDERABL ES Final Result Performing Organization Address City/[facility]/ZIP Co de Phone Number [facility] [address] [place] [address] * DIFFERENTIAL, LAVAGE FLUID (11/02/2008 7:55 EDT) Neutrophils, Fluid 93 % [facility] Lymphocytes, Fluid 2 % [facility] Angelina/Macro, Fluid 4 % [facility] Eosinophil, Fluid 1 % [facility] Note Cell count not available, consult Pathologist [facility] 11/02/2008 7:55 EDT 11/02/2008 8:59 EDT us James Franklin MD GEN LAB UNIT COLLECT ORDERABLES Final Result Performing Organization Address City/[facility] Co de Phone Number [facility] [address] [place] [address] * ELECTRON MICROSCOPY (11/02/2008 7:15 EDT) Accession number [id number] [facility] Referring Pathologist/Ph ysician ? James Franklin M.D. ? [facility] Referring Path/Phys Address [facility] ? [address] ? [place] [address] ? [phone] ? [facility] Specimen A:Consult Material ? [facility] Material nasal ciliary brush and tracheal biopsy - 1 wet tissue EM ? ([id number]) ? SLIDE DISPOSITION: ? 3 EM thicks ret'd 11/27/2008. ??-mjl ? [facility] Diagnosis Code [id number], nasal brush/tracheal biopsy: ??Interpretation: ? Non-representativ e biopsy. ??Semi-thin sections demonstrate ? insufficient numbers of ciliated cells to permit evaluation. ??Should ? additional specimens become available for review, we would be ? willing to reassess the case. ? [facility] Signing Pathologist 11/27/2008 08:49 Interpreted by: Jyoti Wang M.D. Report electronically signed by Jyoti Wang M.D. ? Transcribed by: loren 11/22/2008 12:33:28 ? Performed or Referred by: [facility] Dpt of Lab Med and Path, [address] [facility], [place] [address], Lab Dir: Oleg Young III, ? MD ? [facility] 11/02/2008 7:15 EDT 11/02/2008 11:45 EDT us James Franklin MD CHEMISTRY & BLOOD GAS ORDERABLE S Final Result Performing Organization Address City/State/[facility] Co de Phone Number [facility] [address] [place] [address] documented in this encounter Visit Diagnoses Not on filedocumented in this encounter Administered Medications Inactive Administered Medications - up to 3 most recent administrations Medication Order MAR Action Action Date Dose Rate Site Lidocaine-Tetracaine (SYNERA) 70-70 mg patch PtMH 1 Patch 1 Patch, transdermal, NOW X1, 1 dose, On Wed11/02/08 at 0715, Routine Given 11/02/2008 7:02 EDT 1 Patch sodium chloride 0.9 % (NS) infusion at 25 mL/hr, intravenous, CONTINUOUS, Starting on Wed11/02/08 at 0730, Until 11/03/08 at 0023, Routine, Pre Op Day of Surgery New Bag 11/02/2008 7:43 EDT 25 mL/hr documented in this encounter Historical Medications * This list may reflect changes made after this encounter. Multivitamins with Minerals Tab Take 1 Tab by mouth three times a week. 6 Sodium Fluoride (ACT FLUORIDE) 0.05 % Soln Place 1 Units onto teeth daily. 9 cefdinir (OMNICEF) 300 mg capsule Take 250 mg by mouth 2 times daily. 250 mg/ml, takes 1/2 tsp 9 SODIUM FLUORIDE ORAL Take 1 Tab by mouth. 9 montelukast (SINGULAIR) 5 mg chewable tablet Take 5 mg by mouth at bedtime. 9 levalbuterol (XOPENEX) 0.63 mg/3 mL nebulization Take 0.63 mg by nebulization every 4 hours as needed for Wheezing. 9 fluticasone (FLOVENT) 110 mcg/Actuation inhaler Inhale 2 Puffs as directed every 12 hours. 9 lansoprazole (PREVACID) 15 mg capsule Take 15 mg by mouth 2 times daily. 9 added in this encounter Active and Recently Administered Medications Times are shown in EDT. Scheduled Medication Order 10/31/2008 11/01/2008 11/02/2008 Lidocaine-Tetracaine (SYNERA) 70-70 mg patch PtMH 1 Patch (COMPLETED) 1 Patch, transdermal, NOW X1, 1 dose, On Wed11/02/08 at 0715, Routine 0702 (Given - Provid er: Isabel Porter RN) Continuous Medication Order 10/31/2008 11/01/2008 11/02/2008 sodium chloride 0.9 % (NS) infusion (CANCELED) at 25 mL/hr, intravenous, CONTINUOUS, Starting on Wed11/02/08 at 0730, Until 11/03/08 at 0023, Routine, Pre Op Day of Surgery 0743 (New Bag - Prov ider: Isabel Porter RN) documented in this encounter Orders Nursing Count Last Ordered Date First Orde red Date APPLY WARMING BLANKET 1 11/02/2008 MONITOR AIRWAY 1 11/02/2008 NOTIFY SERVICE 1 11/02/2008 PULSE OXIMETRY 1 11/02/2008 VITAL SIGNS 1 11/02/2008 documented in this encounter Care Teams Liability Claims Representative Relationship Specialty Start Date End Date Gen Jack MD PCP - General 10/12/08 04/09/09 documented as of this encounter
--- OUTSIDE RECORDS SUMMARY | 2024-03-30 21:52 | XMS_ITS | Encounter Summary ---
Author Organization [facility] Address [address] [place] [address] Care Team Providers Care Ems Manager Name Role Phone Unavailable Primary Care Provider Unavailabl e Encounter Details Date Type Department Care Team (Late st Contact Info) Description 08/16/2007 11:44 EDT Hospital Encounter [facility] [address] [place] [address] Melody Lyon MD PhD [address] [place] [address] Social History Tobacco Use Types Packs/Day Years [...] 15:30 EST Telemedicine [facility] [place] Pediatric Pulmonary - Main [address] [address] Lucy Rodgers MD [address] [place] [address] documented as of this encounter Visit Diagnoses Not on filedocumented in this encounter
--- OUTSIDE RECORDS SUMMARY | 2024-03-30 21:52 | XMS_ITS | Encounter Summary ---
Author Organization [facility] Address [address] [place] [address] Care Team Providers Care Media Law Faculty Member Name Role Phone Virgie Jack MD Primary Care Provider Jamaal shi Encounter Details Date Type Department Care Team (Late st Contact Info) Description 11/26/2008 9:55 EDT - 12/04/2008 21:01 EDT Hospital Encounter [facility] Pediatric Unit [address] [place] [address] James Franklin MD [address] [place] [address] Discharge Disposition: Home or Self [...] Sign Reading Time Taken Comments Blood Pressure 101/71 12/03/2008 0814 EDT Pulse 100 12/03/2008 1115 EDT Temperature 35.7 ??C (96.3 ??F) 12/03/2008 0814 EDT Respiratory Rate 22 12/03/2008 1115 EDT Oxygen Saturation 100% 12/03/2008 0814 EDT Inhaled Oxygen Concentration - - Weight 16.6 kg (36 lb 9.5 oz) 11/26/2008 1726 ED T Height 108.7 cm (3' 6.8) 11/27/2008 0800 EDT Body Mass Index 14.05 11/26/2008 1726 EDT Body Mass Index Percentile 10.31% 11/27/2008 080 0 EDT Growth Chart: [facility] (Girls, 2- 20 Years) documented in this encounter Discharge Summaries * Madhuri Villalta - 11/27/2008 1628 EDT Discharge Summary Chief Complaint/Reason for Admission: Recurrent otitis media, persistent cough and sinus complaints, presumed bronchiectasis Principal/Final Diagnosis: Acute exacerbation of bronchiectasis Principal Procedure: PICC line access 11/26/08 Condition at Discharge: Improved, stable Assessment at Discharge: Rosario has done very well throughout her hospitalization. She has had very little coughing, wheezing, or sinus complaints while in the hospital. Underlying etiology of chronic lung changes remains unclear with a few studies still pending. Follow-up Services Contacted at Discharge: Will follow up in pediatric pulmonary clinic on Wednesday, January 14, at 1:15pm Will follow up with PCP (Dr. Pittman) on December 10 at 1:00pm to have PICC line removed. Hospital Course: Rosario Ace is a 2 y.o. female with a history of multiple episodes of OM s/pPE tubes x3, sinus infections, and chronic cough admitted 11/26/08 for IV antibiotics, aggressive airway clearance, and further work-up after bronchoscopy revealed diffuse purulent secretions in all lobes and grew S. Pneumo, H. Flu, and M. Catarrhalis. #Pulmonary: Rosario received a PICC line just prior to admission and was started on ceftriaxone 630mg q12h. She was also treated with chest PT with albuterol three times daily, pulmozyme 2.5mg daily,and 3% hypertonic saline nebulizer twice daily. A chest CT performed on 11/27/08 showed no evidence of bronchiectasis but did reveal chronic inflammation, some mucus plugging, and bronchial dilation. Sinus CT also performed on 11/27/08 was not impressive for severe disease. Immunodeficiency lab panelwas within normal limits. A chloride sweat test done on 11/29/08 was within normal limits. A ciliarybiopsy done prior to admission (on 11/02/08) returned with indeterminate results. Immunoglobulins, IgG sublasses, IgE, immunodeficiency panel with T, B, and NK cell subsets were all within normal limits. Labs still pending at the time of discharge include a nitroblue tetrazolium test, pneumococcal titers, and Ambry CF mutation analysis. Rosario will be discharged with her PICC line still in place and will receive an additional week ofonce daily dosing of ceftriaxone 1250mg at home. She will follow up with her PCP to have the PICC line removed once antibiotics are complete. #GI: Rosario developed loose stools during her stay that were felt to be secondary to antibiotics and excessive juice intake. She was started on Lactinex three times daily with meals. Loose stools improved within a few days. Continue probiotics until finished with antibiotics. Relevant Studies at Discharge: CT chest (11/27/08): No evidence of bronchiectasis. Small patch of consolidation or atelectasis leftlower lobe. Right PICC line tip at junction of right atrium with superior vena cava. CT sinuses (11/27/08): Trace maxillary and ethmoid sinus mucosal inflammatory change without CT evidence of acute sinusitis. Last Lab Results at Discharge: Sweat chloride test (11/29/08): 24 mEq/L, and 28mEq/L Immunoglobulins, IgG sublasses, IgE, immunodeficiency panel with T, B, and NK cell subsets all WNL Airway Clearance: While in the hospital, Rosario received chest PT by percussion three times daily, Pulmozyme 2.5mg daily, and 3% hypertonic saline nebulizer twice daily. She will continue hypertonic saline treatmentsat home. cc: VIRGIE JACK MD @REFP@ Discharge Summary Completed: yes Cosigned by Gianni Hernandez at 12/03/2008 12:03 EDT documented in this encounter Discharge Instructions * Discharge Instructions* Gianni Hernandez - 12/03/2008 12:02 EDT Continue ceftriaxone via PICC line 1250mg once daily Continue 3% hypertonic saline nebulizer treatments twice daily Continue Lactinex with on antibiotics Follow-up with PCP Dr. Pittman on December 10 at 1:00pm to have PICC line removed Follow-up at Pediatric Pulmonary clinic wpm documented in this encounter Medications at Time [...] 12/03/2008 0 documented as of this encounter Ordered Prescriptions Prescription Sig Dispense Quantity Refills Last Filled Start Date End Date sodium chloride 3 % Take 4 mL by nebulization 2 times daily. qs 1 month 1 12/03/2008 0 lactobacillus acidophilus & bulgar (LACTINEX) 1 million cell Chew Take 1 Tab by mouth 3 times daily with meals. qs 14 days 0 12/03/2008 0 documented in this encounter Discharge Disposition Disposition Code Departure Means Destination Home or Self Care documented in this encounter Progress Notes * Gena Christensen RN - 12/03/2008 1342 EDT No multi-disciplinary problems found Data: Went over PICC line care with mom, went over cleaning caps, NS flushing and medication administration. Went over s/s to call MD with, of site inspection with mom and went over emergency situation. Action: mom verbalized and demonstrated correct technique for cleaning caps and administration of medication. Mom used home pump. Mom verbalized s/s to call MD with and what to do in case of an emergency. Response: Mom was very eager to learn PICC line care, emergency clamps given to mom. PICC line cardgiven to mom and [facility] callled and D/c summary faxed to [facility]. Gena Christensen RN 12/03/2008 1:44 PM * James Franklin MD - 12/03/2008 0903 EDT CC: Bronchiectasis with acute exacerbation HPI: Rosario is 2-year-old girl with a history of refractory cough and wheeze who was admitted on 11/26/08 with an exacerbation of her presumed bronchiectasis, based on bronchoscopy findings. Mom did notice that Rosario had an occasional cough overnight, and the cough still seems productive. She hadone loose stool yesterday. She is otherwise eager to leave. ROS: no fever, chills, hemoptysis, emesis, rash. All other systems were reviewed and negative. PMH/FH/SH; unchanged from admission (11/26/08) Allergies: She has a milk protein allergy and develops a rash with amoxicillin. P.E.:BP 101/71 Pulse 103 Temp(Src) 35.7 ??C (96.3 ??F) (Tympanic) Resp 20 Ht 1.087 m (3' 6.8) Wt 16.6 kg (36 lb 9.5 oz) SpO2 100% General Appearance: sleepy, comfortable appearing child, in no acute distress. HEENT: Pupils equal, round, and reactive. Conjunctivae were pink. Tympanic membranes were sahni with PE tubes in place. Nares are clear. Oropharynx without erythema or exudate. Tonsils were 2+, enlarged. Some cobblestoning present Neck was supple with a few mildly enlarged submandibular nodes. Chest: Good air entry. Clear breath sounds. No crackles, wheezes, retractions, significant prolongation of the expiratory phase, or accessory muscle use was evident. Cardiac: S1 and S2 were heard with a regular rhythm. Abdomen soft NT ND, no organomegaly Extremities were without clubbing. Other Studies: Bronchoscopy cultures: (11/02/08) S.pneumonae, H.influenzae, M.catarhalis; Fungal- Mycelia sterilia; 04/23 sweat test negative (chlorides 16/14). 08/2007: immunoglobulins normal, immunization antibody titers normal with good pneumococcal response to 10 serotypes. Admission labs: WBC 5k, Hct 32.5, IgE 110, tTGA normal, Tcell subsets normal, other labs pending. Ciliary biopsy non-diagnostic. IMPRESSION: Rosario is a 2 year old child who is admitted with presumed bronchiectasis with an acute exacerbation. Bronchoscopy was especially striking with diffuse purulent secretions in all lobes. Respiratory disease will continue to be addressed with parenteral antibiotics and aggressive airway clearance. Her differential diagnosis remains broad, with a number of studies pending. We could not exclude the diagnosis of primary ciliary dyskinesia as the biopsy was non- diagnostic. Atypical cystic fibrosis remains a possibility and her repeat sweat chloride test was 24 and 28 ( in the upper range of normal.) Mutation analysis is pending. We will continue treatment at home as follows: Plan: 1. FEN- regular diet. 2. Respiratory- Chest PT by percussion tid, Pulmozyme 2.5mg daily. 3% hypertonic saline via neb BID. 3. ID- IV ceftriaxone q24h for an additional 7 days. 4. Labs: Ambry CF mutation analysis, pneumococcal titers pending. 6. GI- probiotics 7. Disposition-home today with an additional week of IV ceftriaxone, chest percussion and hypertonic saline. Will F/U with PCP on 12/10 for line removal. F/U in Pulmonary clinic in 1 month. * Dione Perez RN - 12/02/2008 9422 EDT No multi-disciplinary problems found Data:Pt active in halls and playroom today with no respiratory distress noted. BS's clear and equal. No cough noted. Mom given verbal instruction in bard pump use for home meds-pt to change to QD meds starting in am and home care company will meet her at home on Wednesday for instruction with 1st home dose. Mom states understanding with flushing IV line-will need new instruction for mini infuser pump as originally pt was going home with bag meds. Action: Pt VS's monitored as ordered. Mom given verbal instruction in use of meds with syringe , but pt not actually using yet. Will need further instruction in am when pt transitioned to QD meds dispensed in syringe using Bard pump. Response: Pt resp status stable. Mom states understanding with basic IV administration. Will need further instruction for home meds. Dione Perez RN 12/02/2008 10:54 PM * Lucy Rodgers MD - 12/02/2008 1238 EDT CC: Presumed bronchiectasis with acute exacerbation Subjective: Rosario is 2-year-old girl with a history of refractory cough and wheeze on hospital day 7 for an exacerbation of bronchiectasis. Her mom reports that Rosario is feeling well this morning, with good appetite and good energy. She reports normal stools today. Rosario has been having productive cough with her saline respiratory treatments. No fever, chills, nausea, vomiting, or rash. Physical exam: BP 101/75 Pulse 100 Temp(Src) 35.4 ??C (95.7 ??F) (Tympanic) Resp 20 Ht 1.087 m (3' 6.8) Wt 16.6 kg (36 lb 9.5 oz) SpO2 100% Gen: NAD, awake, alert, laughing HEENT: PERRL, conjunctivae pink, moist mucous membranes, neck supple with a few mildly enlarged submandibular nodes Lungs: Good aeration. Clear breath sounds. No crackles, intermittent scattered coarse breath soundsand transmitted upper airway noise that cleared with coughing were present after saline neb treatment. No wheezes, retractions, or prolonged expiratory phase CV: S1S2 RRR, no murmur. Good peripheral perfusion and 2+ pedal pulses Abd: Soft, NT/ND, no organomegaly Extr: No clubbing or cyanosis. No rashes Assessment/Plan: Rosario is a 2 year old child who is on hospital day 7 with and acute exacerbationof presumed bronchiectasis based on bronchoscopy with purulent secretions throughout. She continuesto receive IV antibiotics and aggressive airway clearance while further investigations into the etiology of her bronchiectasis are performed. The differential still includes primary ciliary diskinesia (bx non-diagnostic and may need repeated in the future if an alternate diagnosis not obtained), and atypical CF (Ambry mutation analysis pending). Immunodeficiency unlikely given previous studies and history. Will followup pending labs. FEN- Regular diet. Nutrition consulted. Resp- CPT by percussion tid with albuterol, Pulmozyme 2.5mg daily. 3% hypertonic saline via neb BID. ID- IV ceftriaxone q12h to cover S.pneumonae, H.influenzae, M.catarhalis found on 11/02 BAL cx. Labs- Ambry CF mutation analysis, pneumococcal titers pending. Psychosocial- Child Life involved. GI- continue probiotics Dispo- RASHID 12/03/08 with additional week of IV ceftriaxone. Will also need to do CPT and hypertonic saline at home. 3% hypertonic saline for nebulizer (4ml BID, one month supply) was ordered by [facility] pharmacy on 12/02 and will arrive on 12/03. If there is a problem obtaining the 3% saline prior to discharge, then 7% saline needs to be trialed in the hospital to see if she would be able to tolerate it a t home, since it is more irritating and the 3% has been working well. The pharmacy does have the 7%in stock if needed. * James Franklin MD - 12/02/2008 1017 EDT CC: Bronchiectasis with acute exacerbation HPI: Rosario is 2-year-old girl with a history of refractory cough and wheeze who was admitted on 11/26/08 with an exacerbation of her presumed bronchiectasis, based on bronchoscopy findings. Mom reports that has had an intermittent productive cough associated with respiratory treatments, particularly saline. She is feeling well with increased energy and a stable appetite. Her stool pattern has returned to normal. ROS: no fever, chills, hemoptysis, emesis, rash. All other systems were reviewed and negative. PMH/FH/SH; unchanged from admission (11/26/08) Allergies: She has a milk protein allergy and develops a rash with amoxicillin. P.E.:BP 95/60 Pulse 120 Temp(Src) 35.7 ??C (96.3 ??F) (Tympanic) Resp 20 Ht 1.087 m (3' 6.8) Wt 16.6 kg (36 lb 9.5 oz) SpO2 100% General Appearance: sleepy, comfortable appearing child, in no acute distress. HEENT: Pupils equal, round, and reactive. Conjunctivae were pink. Tympanic membranes were sahni with PE tubes in place. Nares are clear. Oropharynx without erythema or exudate. Tonsils were 2+, enlarged. Some cobblestoning present Neck was supple with a few mildly enlarged submandibular nodes. Chest: Good air entry. Clear breath sounds. No crackles, wheezes, retractions, significant prolongation of the expiratory phase, or accessory muscle use was evident. Cardiac: S1 and S2 were heard with a regular rhythm. Abdomen soft NT ND, no organomegaly Extremities were without clubbing. Other Studies: Bronchoscopy cultures: (11/02/08) S.pneumonae, H.influenzae, M.catarhalis; Fungal- Mycelia sterilia; 04/23 sweat test negative (chlorides 16/14). 08/2007: immunoglobulins normal, immunization antibody titers normal with good pneumococcal response to 10 serotypes. Admission labs: WBC 5k, Hct 32.5, IgE 110, tTGA normal, Tcell subsets normal, other labs pending. Ciliary biopsy non-diagnostic. IMPRESSION: Rosario is a 2 year old child who is admitted with presumed bronchiectasis with an acute exacerbation. Bronchoscopy was especially striking with diffuse purulent secretions in all lobes. Respiratory disease will continue to be addressed with parenteral antibiotics and aggressive airway clearance. Her differential diagnosis remains broad, with a number of studies pending. We could not exclude the diagnosis of primary ciliary dyskinesia as the biopsy was non- diagnostic. A repeat biopsy may be considered in the future. Atypical cystic fibrosis remains a possibility and her repeat sweat chloride test was 24 and 28 ( in the upper range of normal.) Her sinus CT was not impressive for severe disease, while her chest does have evidence of chronic inflammation, some mucus plugging and bronchial dilatation. Plan: 1. FEN- regular diet. Consulted nutrition regarding dietary interventions. 2. Respiratory- Chest PT by percussion tid with albuterol, Pulmozyme 2.5mg daily. 3% hypertonic saline via neb BID. 7% hypertonic saline may be trialed if 3% will not be easily obtained as an outpatient. 3. ID- IV ceftriaxone q12h. 4. Labs: Ambry CF mutation analysis, pneumococcal titers pending. 5. Psychosocial--will need support Child Life and Psychology. 6. GI- stable on probiotics 7. Disposition-RASHID 12/03/08 with additional week of IV ceftriaxone, chest percussion and hypertonic saline. * Lucy Teixeira - 12/01/2008 0801 EDT CC: Bronchiectasis with acute exacerbation HPI: Rosario is 2-year-old girl with a history of refractory cough and wheeze who was admitted on 11/26/08 with an exacerbation of her presumed bronchiectasis, based on bronchoscopy findings. Mom reports that Rosario slept well without any cough or raspy breathing. Her mom notes that she does have some rattling in her chest after nebulized saline treatments with some nonproductive cough. Mom also reported that Rosario's stool pattern has decreased to only 2 loose stools yesterday. Energy level and appetite have been good per mom. ROS: no fever, chills, hemoptysis, emesis, rash. All other systems were reviewed and negative. PMH/FH/SH; unchanged from admission (11/26/08) Allergies: She has a milk protein allergy and develops a rash with amoxicillin. P.E.:VSS Wt 16.6 kg (36 lb 9.5 oz) SpO2 92-100% room air General Appearance: sleepy, comfortable appearing child, in no acute distress. HEENT: Pupils equal, round, and reactive. Conjunctivae were pink. Tympanic membranes were sahni with PE tubes in place. Nares are clear. Oropharynx without erythema or exudate. Tonsils were 2+, enlarged. Some cobblestoning present Neck was supple with a few mildly enlarged submandibular nodes. Chest: Good air entry. Clear breath sounds. No crackles, wheezes, retractions, significant prolongation of the expiratory phase, or accessory muscle use was evident. Cardiac: S1 and S2 were heard with a regular rhythm. Abdomen soft NT ND, no organomegaly Extremities were without clubbing. Other Studies: Bronchoscopy cultures: (11/02/08) S.pneumonae, H.influenzae, M.catarhalis; Fungal- Mycelia sterilia; 04/23 sweat test negative (chlorides 16/14). 08/2007: immunoglobulins normal, immunization antibody titers normal with good pneumococcal response to 10 serotypes. Admission labs: WBC 5k, Hct 32.5, IgE 110, tTGA normal, serum Igs normal, Tcell subsets normal, other labs pending. Ciliary biopsy non-diagnostic. IMPRESSION: Rosario is a 2 year old child who is admitted with presumed bronchiectasis with an acute exacerbation. Bronchoscopy was especially striking with diffuse purulent secretions in all lobes. Respiratory disease will continue to be addressed with parenteral antibiotics and aggressive airway clearance. Her differential diagnosis remains broad, with a number of studies pending. We could not exclude the diagnosis of primary ciliary dyskinesia as the biopsy was non- diagnostic. Atypical cystic fibrosis remains a possibility and her repeat sweat chloride test was 24 [address] sinus [address] was not impressive for severe disease, while her chest does have evidence of chronic inflammation, some mucus plugging and bronchial dilatation. Plan: 1. FEN- regular diet. Consulted nutrition regarding dietary interventions. 2. Respiratory- Chest PT by percussion tid with albuterol, Pulmozyme 2.5mg daily. 3% hypertonic saline via neb BID 3. ID- IV ceftriaxone q12h. [facility]. [facility], Immunologic panels, pneumococcal titers pending. 5. Psychosocial--will need support Child Life and Psychology. 6. GI- add probiotics, consider C.diff testing if sx worsen. 7. Disposition-RASHID 12/03/08 with additional week of IV ceftriaxone. * Angelina Evans - 11/30/2008 1347 EDT Spoke with the nurse from [place], she stated that teaching with Mom for home went well. She also spoke with home health coordinated delivery of IV med for Tu morning infusion. Vinh OLSEN * Rashmi Tabares NP - 11/30/2008 0923 EDT CC: Bronchiectasis with acute exacerbation HPI: Rosario is 2-year-old girl with a history of refractory cough and wheeze who was admitted on 11/26/08 with an exacerbation of her presumed bronchiectasis, based on bronchoscopy findings. Mom reports that Rosario slept well without any cough or raspy breathing. She did have a slight cough with nebulized saline, but this was not a productive cough. Mom also reported that Rosario's stool pattern has decreased to only 2 loose stools yesterday. Energy level and appetite have been good per mom. ROS: no fever, chills, hemoptysis, emesis, rash. All other systems were reviewed and negative. PMH/FH/SH; unchanged from admission (11/26/08) Allergies: She has a milk protein allergy and develops a rash with amoxicillin. P.E.:Pulse 104 Resp 20 Ht 1.087 m (3' 6.8) Wt 16.6 kg (36 lb 9.5 oz) SpO2 94-100% room air General Appearance: sleepy, comfortable appearing child, in no acute distress. HEENT: Pupils equal, round, and reactive. Conjunctivae were pink. Tympanic membranes were sahni with PE tubes in place. Nares are clear. Oropharynx without erythema or exudate. Tonsils were 2+, enlarged. Some cobblestoning present Neck was supple with a few mildly enlarged submandibular nodes. Chest: Good air entry. Clear breath sounds. No crackles, wheezes, retractions, significant prolongation of the expiratory phase, or accessory muscle use was evident. Cardiac: S1 and S2 were heard with a regular rhythm. Abdomen soft NT ND, no organomegaly Extremities were without clubbing. Other Studies: Bronchoscopy cultures: (11/02/08) S.pneumonae, H.influenzae, M.catarhalis; Fungal- Mycelia sterilia; 04/23 sweat test negative (chlorides 16/14). 08/2007: immunoglobulins normal, immunization antibody titers normal with good pneumococcal response to 10 serotypes. Admission labs: WBC 5k, Hct 32.5, IgE 110, tTGA normal, serum Igs normal, Tcell subsets normal, other labs pending. Ciliary biopsy non-diagnostic. IMPRESSION: Rosario is a 2 year old child who is admitted with presumed bronchiectasis with an acute exacerbation. Bronchoscopy was especially striking with diffuse purulent secretions in all lobes. Respiratory disease will continue to be addressed with parenteral antibiotics and aggressive airway clearance. Her differential diagnosis remains broad, with a number of studies pending. We could not exclude the diagnosis of primary ciliary dyskinesia as the biopsy was non- diagnostic. Atypical cystic fibrosis remains a possibility and her repeat sweat chloride test was 24 [address] sinus [address] was not impressive for severe disease, while her chest does have evidence of chronic inflammation, some mucus plugging and bronchial dilatation. Plan: 1. FEN- regular diet. Consulted nutrition regarding dietary interventions. 2. Respiratory- Chest PT by percussion tid with albuterol, Pulmozyme 2.5mg daily. Add 3% hypertonicsaline via neb BID 3. ID- IV ceftriaxone q12h. 4. Labs: [facility] CF mutation analysis, Immunologic panels, pneumococcal titers pending. 5. Psychosocial--will need support Child Life and Psychology. 6. GI- add probiotics, consider C.diff testing if sx worsen. 7. Disposition-RASHID 12/03/08 with additional week of IV ceftriaxone. * Eloisa Simons - 11/30/2008 0832 EDT I met with mom and Rosario on 11/29/08 to introduce myself as the outpatient pulmonary social workerand assess for needs. Rosario was getting chest PT while I was in the room. Mom was very easily engaged and forthcoming. She said that things were going well at the hospital and Rosario was actually sleeping better here then she does at home. Mom said that her has been staying at home caring for her son and working during the day while she has been in the hospital with Rosario and this has worked out well so far. They hare hoping to be able to go home on Wednesday. Mom reported that she istrying to open a licensed daycare currently. 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 This is usually a multi-monthprocess. Things have been a bit difficult financially while she is unemployed and waiting for things to go through. Mom said that Rosario has Dr. Pacheco for insurance and she has not had any problems with this to date. I will bring mom a gas card for her to use to visit tomorrow. Plan: Continue to follow for support and resource referral ALCIRA Ruggiero * Madhuri Villalta - 11/30/2008 0727 EDT Pediatric Progress Note Subjective: 24 hour events: Repeat sweat test done - negative. Pt developed skin irritation at the sites where the test was done on LUE and RLE; was blanching and non- painful. Started probiotics and 3% hypertonic saline nebs twice daily. This morning mom reports that diarrhea has improved. Rosario had only 2 loose stools yesterday as compared to 6 the day before. They are still non-watery, dark in color. Did have some cough after nebtreatment yesterday - now resolved. Denies any dyspnea or pain. Objective: Patient Vitals in the past 8 hrs: BP Temp Temp src Pulse Resp SpO2 Height Wt - Scale 11/30/08 0400 - - - - - 99 % - - 11/30/08 0200 - - - - - 100 % - - 11/30/08 0000 95/47 mmHg 36.4 ??C (97.5 ??F) Tympanic 80 20 100 % - - General Appearance: Sleepy, lying in bed, NAD Cardiovascular: RRR, nl S1S2, no murmurs appreciated, good pulses Respiratory: CTAB, good respiratory effort Abdominal: soft, NT, ND, +BS, no HSM, no masses. Extremities: no c/c/e, plantar's wart on 3rd right toe Neurologic: appropriate mental status Dermatologic: Rash from sweat test sites yesterday appears to have completely resolved Lab Results Component Value Date/Time ??? WBC 5.05 11/26/08 7:19 PM ??? HGB 11.5 11/26/08 7:19 PM ??? HCT 32.7 11/26/08 7:19 PM ??? MCV 83 11/26/08 7:19 PM ??? PLT 315 11/26/08 7:19 PM Last 3 Encounter SpO2 Readings: Date SpO2 11/14/2008 99% 10/09/2008 100% Assessment: Rosario Ace is a 2 y.o. female with a history of multiple episodes of OM s/p PE tubes x3, sinus infections, and chronic cough admitted for presumed bronchiectasis based on bronchoscopy findings. Of note, patient has never been hospitalized for any infections and has had completely normal growth and development. Differential remains broad and includes primary ciliary dyskinesia (ciliary biopsy done 11/02/08 - EM results indeterminate), atypical CF (s/p negative sweat test 05/03/08 and 11/29/08), allergic bronchopulmonary aspergillosis (although normal IgE, peripheral blood eos, and no brochiectasis on chest CT makes this less likely), or chronic reflux with aspiration (although her lipid-laden macrophage index on BAL would suggest no aspiration). Given Rosario's normal immunodeficiency panel, chronic granulomatous disease is highly unlikely. Also given that Rosario has had improved symptomatology sincebeing in the hospital, there may be an allergic component at home playing a role. Sinus CT was not i mpressive for severe disease; chest CT with evidence of chronic inflammation, some mucus plugging and bronchial dilatation. Remains hospitalized for IV antibiotics, aggressive airway clearance, and further workup. Overall doing very well at this point, very happy child, not ill-appearing. Plan: 1. FEN: Patient appears euvolemic. Follow I/Os. Regular diet. -Nutrition consult re. Dietary interventions for milk protein allergy 2. RESP: Patient without respiratory symptoms at this time. -Chest PT by percussion tid with albuterol -Pulmozyme 2.5mg daily -Cont. 3% hypertonic saline via neb bid -Repeat sweat chloride test scheduled for today -CF mutation analysis pending -Will hold off on repeat cilary biopsy for now - may do in the future as an outpatient 3. ID: S&S of bronchiectasis, but CT not consistent with this -Continue ctx 75mg/kg/day divided bid, now on day 09/27 - will change to once daily dosing on discharge for convenience -Of note, patient has allergy to PCN (rash) so watch for cross-reactivity - none evident at this time -Labs pending: Initroblue tetrazolium test, repeat pneumococcal titers 4. GI: Pt has taken prevacid for possible reflux in that past. Hold for now; watch for S&S of reflux. Loose stools are improving and could be secondary to antibiotics or excessive apple juice intake (now being limited). Not concerning for C. Diff at this time. -Monitor for worsening of diarrhea - if gets worse will consider testing for C. Diff -Cont. probiotics 5. PATIENT AND FAMILY SUPPORT: Child life, ped pyschology following as pt is likely to be in hospital for lengthy stay. 6. DISPO: Home likely Sunday 12/03 with an additional week of IV ceftriaxone at home. Pt's mom to work with nursing to learn how to flush the line and administer medications. Home health with come to family's home on Monday 12/04 for first dose at 9am. Madhuri Villalta, ANUSHA Pager #[phone] Cosigned by Gianni Hernandez at 11/30/2008 11:00 EDT * Jacob Acosta RN - 11/29/2008 9789 EDT D: Pt has two rectangular blanching, non-raised, non-painful rashes on RLE and LUE from sweat test.Mom was concerned about rash. A: For mom's comfort contacted CLEOPATRA Landis to assess. R: Will continue to monitor. RAÚL Key * Ree Melvin RN - 11/29/2008 2095 EDT Nursing note 11/29/2008 @ 1405. D: Rosario is on day 4 of IV abx and has started having loose stools at least daily. A: Mom educated on risk of dehydration and the importance of noting stool consistency and notifyingRN if stools becomes increasingly watery. Lactobacillus ordered and administered by nursing; mom aware of rationale. R: Pt with alteration in elimination likely r/t current course of IV abx. Will continue to monitor hydration status and advocate for IVF if necessary. RAÚL Armando. * Madhuri Villalta - 11/29/2008 1056 EDT Subjective: 24 hour events: Family met with Kika Godoy (manager rn case) this morning regarding issues surrounding discharge likely to be early next week. Rosario had ~6 loose stools yesterday, non-watery, non-bloody. Mom thinks it may be from the excessive amounts of apple juice she has been drinking. Rosario's bottom has also been sore as well to thepoint where she was resistant to sit in the bath secondary to pain. Otherwise there are no concerns. Denies cough, wheeze, dyspnea, or abdominal pain. Objective: Patient Vitals in the past 8 hrs: BP Temp Temp src Pulse Resp SpO2 Height Wt - Scale 11/29/08 0852 - - - 100 24 - - - 11/29/08 0836 98/51 mmHg 36.5 ??C (97.7 ??F) Tympanic 77 20 100 % - - 11/29/08 0400 - 36 ??C (96.8 ??F) Tympanic 67 20 99 % - - General Appearance: Alert, smiling, NAD Cardiovascular: RRR, nl S1S2, no murmurs appreciated, good pulses Respiratory: CTAB, good respiratory effort Abdominal/Rectum: soft, NT, ND, +BS, no HSM, no masses. Erythema and irritation in perianal area without fissure or rash. Extremities: no c/c/e Neurologic: appropriate mental status Dermatologic: No rashes seen Lab Results Component Value Date/Time ??? WBC 5.05 11/26/08 7:19 PM ??? HGB 11.5 11/26/08 7:19 PM ??? HCT 32.7 11/26/08 7:19 PM ??? MCV 83 11/26/08 7:19 PM ??? PLT 315 11/26/08 7:19 PM Last 3 Encounter SpO2 Readings: Date SpO2 11/14/2008 100% 10/09/2008 100% Assessment: Rosario Ace is a 2 y.o. female with a history of multiple episodes of OM s/p PE tubes x3, sinus infections, and chronic cough admitted for presumed bronchiectasis based on bronchoscopy findings. Of note, patient has never been hospitalized for any infections and has had completely normal growth and development. Differential includes primary ciliary dyskinesia (ciliary biopsy done 11/02/08 - EM results indeterminate), atypical CF (s/p negative sweat test 05/03/08), allergic bronchopulmonary aspergillosis (although normal IgE, peripheral blood eos, and no brochiectasis on chest CT makes this less likely), orchronic reflux with aspiration (although her lipid-laden macrophage index on BAL would suggest no aspiration). Given Rosario's normal immunodeficiency panel, chronic granulomatous disease is highly unlikely. Also given that Rosario has had improved symptomatology since being in the hospital, there may be an allergic component at home playing a role. Sinus CT was not impressive for severe disease;chest CT with evidence of chronic inflammation, some mucus plugging and bronchial dilatation. Remains hospitalized for IV antibiotics, aggressive airway clearance, and further workup. Overall doing very well at this point, very happy child, not ill-appearing. Plan: 1. FEN: Patient appears euvolemic. Follow I/Os. Regular diet. -Nutrition consult re. Dietary interventions for milk protein allergy 2. RESP: Patient without respiratory symptoms at this time. -Chest PT by percussion tid with albuterol -Pulmozyme 2.5mg daily -Will add 3% hypertonic saline via neb bid per Dr. Franklin -Repeat sweat chloride test scheduled for today -CF mutation analysis pending -Will hold off on repeat cilary biopsy for now - may do in the future as an outpatient 3. ID: S&S of bronchiectasis, but CT not consistent with this -Continue ctx 75mg/kg/day divided bid - will try to change to once daily dosing on discharge -Of note, patient has allergy to PCN (rash) so watch for cross-reactivity - none evident at this time -Labs pending: Initroblue tetrazolium test, repeat pneumococcal titers 4. GI: Pt has taken prevacid for possible reflux in that past. Hold for now; watch for S&S of reflux. Loose stools could be secondary to antibiotics or excessive apple juice intake. Not concerning for C. Diff at this time. -Monitor for worsening of diarrhea - if gets worse will consider testing for C. Diff -Start probiotics 5. PATIENT AND FAMILY SUPPORT: Child life, ped pyschology following as pt is likely to be in hospital for lengthy stay. 6. DISPO: Home likely Sunday 12/03 with an additional week of IV ceftriaxone at home. Pt's mom to work with nursing to learn how to flush the line and administer medications. Home health with come to family's home on Monday 12/04 for first dose at 9am. ANUSHA Nieto Pager #[phone] Cosigned by Gianni Hernandez at 11/29/2008 11:59 EDT * Arabella Godoy RN - 11/29/2008 1024 EDT Met with Rosario and her mother - Lucy. Lucy states that she is aware of the plan for Rosario to go home on IV antibiotics and is comfortable with the plan. Since once daily dosing is planned, she would like to give it at 9 AM. Plan is for discharge on Wednesday - therefore should get her daily dosebefore discharge and then I have spoken to Ciarra at [facility] and they will meet them on at 9 AM to do first dose at home. Lucy will work with nursing to learn how to flush the line and administer medications. [employer] was the vendor chosen by Lucy and they are available over the weekend if questions come up or if Lucy needs additional education. Lucy states that they live with her , her mother and her son. There are smokers in the homehowever, they are smoking outside now. Lucy states she has information for them on smoking cessation. Lucy states that they have a car and even though she is currently unemployed is doing ok financially. I have given her a letter for assistance with job searches and unemployment during this hospitalization. No taoism or cultural concerns at this time. I have reviewed with Lucy resources here on the floor, such as parking validation and the [facility] room. They have medicaid for insurance. I will coordinate with the residents to get prescriptions faxed. Please page case management if other issues arise. Arabella Godoy RN #[id number] * James Franklin MD - 11/29/2008 0821 EDT CC: Bronchiectasis with acute exacerbation HPI: Rosario is 2-year-old girl with a history of refractory cough and wheeze who was admitted on 11/26/08 with an exacerbation of her presumed bronchiectasis, based on bronchoscopy findings. She had a good night without cough or raspy breathing. Her energy level has increased. She had loose stools with some discomfort yesterday. Her diet has changed, since she has refused the type of soy milk in the hospital and has been drinking more juice. ROS: no fever, chills, hemoptysis, emesis, rash. All other systems were reviewed and negative. PMH/FH/SH; unchanged from admission (11/26/08) Allergies: She has a milk protein allergy and develops a rash with amoxicillin. P.E.: BP 105/58 Pulse 67 Temp(Src) 36 ??C (96.8 ??F) (Tympanic) Resp 20 Ht 1.087 m (3' 6.8) Wt 16.6 kg (36 lb 9.5 oz) SpO2 99% General Appearance: tired, comfortable appearing child, in no acute distress. HEENT: Pupils equal, round, and reactive. Conjunctivae were pink. Tympanic membranes were sahni with PE tubes in place. Nares are clear. Oropharynx without erythema or exudate. Tonsils were 2+, enlarged. Some cobblestoning present Neck was supple with a few mildly enlarged submandibular nodes. Chest: Good air entry. Clear breath sounds. No crackles, wheezes, retractions, significant prolongation of the expiratory phase, or accessory muscle use was evident. Cardiac: S1 and S2 were heard with a regular rhythm. Abdomen soft NT ND, no organomegaly Extremities were without clubbing. Other Studies: Bronchoscopy cultures: (11/02/08) S.pneumonae, H.influenzae, M.catarhalis; Fungal- Mycelia sterilia; 04/23 sweat test negative (chlorides 16/14). 08/2007: immunoglobulins normal, immunization antibody titers normal with good pneumococcal response to 10 serotypes. Admission labs: WBC 5k, Hct 32.5, IgE 110, tTGA normal, serum Igs normal, Tcell subsets normal, other labs pending. Ciliary biopsy non-diagnostic. IMPRESSION: Rosario is a 2 year old child who is admitted with presumed bronchiectasis with an acute exacerbation. The appearance of her airways on bronchoscopy was especially striking with diffuse purulent secretions in all lobes. We will continue to address her respiratory disease with parenteral antibiotics and aggressive airway clearance. Her differential diagnosis remains broad, with a number of studies pending. We could not exclude the diagnosis of primary ciliary dyskinesia as the biopsywas non-diagnostic. Atypical cystic fibrosis remains a possibility. Her sinus CT was not impressivefor severe disease, while her chest does have evidence of chronic inflammation, some mucus pluggingand bronchial dilatation. Plan: 1. FEN- regular diet. Consulted nutrition regarding dietary interventions. 2. Respiratory- Chest PT by percussion tid with albuterol, Pulmozyme 2.5mg daily. Add 3% hypertonicsaline via neb BID 3. ID- IV ceftriaxone q12h. 4. Labs: Ambry CF mutation analysis, Immunologic panels, pneumococcal titers pending. 5. Will repeat sweat chloride test today. 6. Psychosocial--will need support Child Life and Psychology. 7. GI- add probiotics, consider C.diff testing if sx worsen. 7. Disposition-RASHID 12/03/08 with additional week of IV ceftriaxone. * Melody Davidson RN - 11/29/2008 0420 EDT Pt had a good night. Mom gave her a bath in the evening and walked in the bran and down to the cafeteria. Pt was asleep by 2130 and slept well all night. Sats >95% RA bilat BS CTA slightly diminished at bases. * James Franklin MD - 11/28/2008 0832 EDT CC: Bronchiectasis with acute exacerbation HPI: Rosario is 2-year-old girl with a history of refractory cough and wheeze who was admitted on 11/26/08 with an exacerbation of her presumed bronchiectasis, based on bronchoscopy findings. She has intermittent raspy breathing. She is not coughing much with chest PT. Her appetite is stable. She slept well last night. She briefly complained of arm pain last evening related to her PICC line. This w as relieved by acetaminophen Her nasal congestion has improved. ROS: no fever, chills, hemoptysis, diarrhea, emesis, rash. All other systems were reviewed and negative. PMH/FH/SH; unchanged from admission (11/26/08) Allergies: She has a milk protein allergy and develops a rash with amoxicillin. P.E.: General Appearance: alert, comfortable appearing child, in no acute distress. HEENT: Pupils equal, round, and reactive. Conjunctivae were pink. Tympanic membranes were sahni with PE tubes in place. Nares are clear. Oropharynx without erythema or exudate. Tonsils were 2+, enlarged. Some cobblestoning present Neck was supple with a few mildly enlarged submandibular nodes. Chest: Good air entry. Clear anteriorly with some posterior coarse breath sounds. No wheezes, retractions, significant prolongation of the expiratory phase, or accessory muscle use was evident. Cardiac: S1 and S2 were heard with a regular rhythm. Abdomen soft NT ND, no organomegaly Extremities were without clubbing. Other Studies: Bronchoscopy cultures: (11/02/08) S.pneumonae, H.influenzae, M.catarhalis; Fungal- Mycelia sterilia; 04/23 sweat test negative (chlorides 16/14). 08/2007: immunoglobulins normal, immunization antibody titers normal with good pneumococcal response to 10 serotypes. Admission labs: WBC 5k, Hct 32.5, IgE 110, tTGA normal, serum Igs normal, other labs pending. Ciliary biopsy non-diagnostic. IMPRESSION: Rosario is a 2 year old child who is admitted with presumed bronchiectasis with an acute exacerbation. The appearance of her airways on bronchoscopy was especially striking with diffuse purulent secretions in all lobes. We will continue to address her respiratory disease with parenteral antibiotics and aggressive airway clearance. Her differential diagnosis remains broad, with a number of studies pending. We could not exclude the diagnosis of primary ciliary dyskinesia as the biopsywas non-diagnostic. Her sinus CT was not impressive for severe disease, while her chest does have evidence of chronic inflammation, some mucus plugging and bronchial dilatation. Plan: 1. FEN- regular diet. Consulted nutrition regarding dietary interventions. 2. Respiratory- Chest PT by percussion tid with albuterol, Pulmozyme 2.5mg daily. 3. ID- IV ceftriaxone q12h. 4. Labs: Ambry CF mutation analysis, Immunologic panels pending. Draw repeat pneumococcal titers 5. Will consider repeat sweat chloride test. 6. Psychosocial--will need support Child Life and Psychology. 7. Disposition-anticipate 1-2 weeks. * Madhuri Villalta - 11/28/2008 0788 EDT Subjective: 24 hour events: CT with sedation done, PICC bandage changed secondary to complaints of pain and itching - after bandage change this apparently persisted and she was given Tylenol Objective: Patient Vitals in the past 8 hrs: BP Temp Temp src Pulse Resp SpO2 Height Wt - Scale 11/28/08 0000 - 36.5 ??C (97.7 ??F) Tympanic 82 19 100 % - - General Appearance: Alert, smiling, NAD Cardiovascular: RRR, nl S1S2, no murmurs appreciated, good pulses Respiratory: CTAB, good respiratory effort Abdominal: soft, NT, ND, +BS, no HSM, no masses Extremities: no c/c/e Neurologic: appropriate mental status Dermatologic: No rashes seen No results found for this basename: CREATININE,BUN,NA,K,CL,CO2 Lab Results Component Value Date/Time ??? WBC 5.05 11/26/08 7:19 PM ??? HGB 11.5 11/26/08 7:19 PM ??? HCT 32.7 11/26/08 7:19 PM ??? MCV 83 11/26/08 7:19 PM ??? PLT 315 11/26/08 7:19 PM Last 3 Encounter SpO2 Readings: Date SpO2 11/14/2008 100% 10/09/2008 100% Immunodeficiency panel - CD3: 76% (nl 55-82), CD4: 47% (nl 30-50), CD8: 22% (nl 14-35), Absolute CD4: 890, CD19: 16% (nl 10-25), CD56: 8% [or 152 total cells] (nl 75-500 total cells) Cilary biopsy (done 11/02/08): indeterminate results CT scan chest - No evidence of bronchiectasis. Small patch of consolidation or atelectasis left lower lobe. Right PICC line tip at junction of right atrium with superior vena cava. CT scan sinuses: Trace maxillary and ethmoid sinus mucosal inflammatory change without CT evidence of acute sinusitis. Assessment: Rosario Ace is a 2 y.o. female with a history of multiple episodes of OM s/p PE tubes x3, sinus infections, and chronic cough admitted for presumed bronchiectasis based on bronchoscopy findings. Of note, patient has never been hospitalized for any infections and has had completely normal growth and development. Differential includes primary ciliary dyskinesia (ciliary biopsy done 11/02/08 - EM results indeterminate), CF (although s/p negative sweat test 05/03/08 and normal growth makes this less likley), allergic bronchopulmonary aspergillosis (although normal IgE, peripheral blood eos, and no brochiectasis on chest CT makes this less likely), or chronic reflux with aspiration (although her lipid- laden macrophage index on BAL would suggest no aspiration). Given Rosario's normal immunodeficiency panel, chronic granulomatous disease is highly unlikely. Given that Rosario has had improved symptomatologysince being in the hospital, there may be an allergic component at home playing a role. Overall doing very well at this point, very happy child, not ill-appearing. Plan: 1. FEN: Patient appears euvolemic. Follow I/Os. Regular diet. 2. RESP: Patient without respiratory symptoms at this time. -Chest PT tid with albuterol -Pulmozyme 2.5mg daily -Repeat sweat test tomorrow -CF mutation analysis pending -May repeat ciliary biopsy via nasal brush 3. ID: S&S of bronchiectasis, but CT not consistent with this -Continue ctx 75mg/kg/day divided bid -Of note, patient has allergy to PCN (rash) so watch for cross-reactivity - none evident at this time -Labs pending: IgG subclasses, Initroblue tetrazolium test, repeat pneumococcal titers 4. GI: Pt has taken prevacid for possible reflux in that past. Hold for now; watch for S&S of reflux. 5. PATIENT AND FAMILY SUPPORT: Child life, ped pyschology following as pt is likely to be in hospital for lengthy stay. Madhuri Villalta, [facility] Pager #[phone] Cosigned by Gianni Hernandez at 11/28/2008 15:50 EDT * Soraya Hi - 11/27/20081921 EDT scalp specialist was requested for distraction/teaching for CT scan this am as Rosario was unable to participate in a CT scan the previous night due to anxieties. Hand Clerical Verifier brought in miniature wooden CT scanner with a doll and some stickers to do some education and explore Rosario's fears associated with the CT scan. Rosario would make eye contact with scalp specialist but would not verbalize or facilitate any play around CT anxieties. scalp specialist assisted in transport of Rosario to the CT scan with many distraction tools but as soon as Rosario entered the CT scan room, she immediately started to cry and hide her head in her lap. scalp specialist utilized bubbles, light wands, turned lights down and tried to comfort/support Rosario without success in her being able to lie on the CT table and hold her body still. Mom was present and aware of child life support and was very supportive of Rosario in trying to encourage her to lay on the table also. scalp specialist accompanied Rosario later today for the second attempt at the CT scan, this time with full sedation. scalp specialist advocated for Rosario to receive sedation while in mom'slap in the wheelchair due to her anxieties with the CT table. Child life team will continue to follow Rosario and family throughout the hospitalization providing procedural support/ teaching, distract ion, socialization and normalization. REYNA DanielS Certified Hand Clerical Verifier * Anya Devine RN - 11/27/2008 191 EDT 1911- pt eating dinner with mom at bs, smiling, without evidence of distress noted, raúl jonas * Anya Devine RN - 11/27/2008 183 EDT 1835- Pt returned from Recovery, pt sitting up in bed painting with mom at bedside, mom ordering dinner, AIR CONDITIONER INSTALLER HELPER taking vitals, pt without evidence distress noted , raúl bryson * Eloisa Russell RN - 11/27/2008 180 EDT 11/27/08 180 Toddler awake, happy and pleasant. Sat up, drinking gingerale. Mom @ bedside. Ready for transfe rback to B5. Picc line DDI, was changed in ct by IVT per mom. Jackson, RAÚL, PACU * Eloisa Russell RN - 11/27/2008 1732 EDT 11/27/08 1720 Toddler admit to pacu, asleep, woke briefly then back to sleep. Vss, lungs clear. blowby to face. Mom @ bedside. RAÚL Paz, PACU * Arabella Godoy RN - 11/27/2008 1633 EDT Attempted to meet with Jorge - however they were headed to a test. I introduced myself and will follow up with them tomorrow. Arabella Godoy RN #[id number] * Yaneth Palma - 11/27/2008 0907 EDT Pt seen, comfortable, no apparent anesthesia complications. No followup necessary. * James Franklin MD - 11/27/2008 0816 EDT CC: Bronchiectasis with acute exacerbation HPI: Rosario is 2-year-old girl with a history of refractory cough and wheeze who was admitted on 11/26/08 with an exacerbation of her presumed bronchiectasis, based on bronchoscopy findings. She has intermittent raspy breathing. Her appetite is stable. She slept well last night. She briefly complained of PICC line discomfort, but this resolved. She was upset when she was brought down to CT at 2200 last night for her scan and was unable to complete it. ROS: no fever, chills, hemoptysis, diarrhea, emesis, rash. All other systems were reviewed and negative. PMH/FH/SH; unchanged from admission (11/26/08) Allergies: She has a milk protein allergy and develops a rash with amoxicillin. P.E.: BP 87/59 Pulse 92 Temp(Src) 36.1 ??C (97 ??F) (Tympanic) Resp 24 Wt 16.6 kg (36 lb 9.5 oz) SpO2 98% General Appearance: alert, comfortable appearing child, in no acute distress. HEENT: Pupils equal, round, and reactive. Conjunctivae were pink. Tympanic membranes were sahni with PE tubes in place. Nares are clear. Oropharynx without erythema or exudate. Tonsils were 2+, enlarged. Some cobblestoning present Neck was supple with a few mildly enlarged submandibular nodes. Chest: Good air entry. Scattered anterior coarse breath sounds, posterior verdin clear. No wheezes,retractions, significant prolongation of the expiratory phase, or accessory muscle use was evident. Cardiac: S1 and S2 were heard with a regular rhythm. Abdomen soft NT ND, no organomegaly Extremities were without clubbing. Other Studies: Bronchoscopy cultures: (11/02/08) S.pneumonae, H.influenzae, M.catarhalis; Fungal- Mycelia sterilia; 04/23 sweat test negative (chlorides 16/14). 08/2007: immunoglobulins normal, immunization antibody titers normal with good pneumococcal response to 10 serotypes. Admission labs: WBC 5k, Hct 32.5, other labs pending. IMPRESSION: Rosario is a 2 year old child who is admitted with presumed bronchiectasis with an acute exacerbation. The appearance of her airways on bronchoscopy was especially striking with diffuse purulent secretions in all lobes. We will address her respiratory disease with parenteral antibiotics, aggressive airway clearance. Her differential diagnosis remains broad, with a number of studies pending. Plan: 1. FEN- regular diet 2. Respiratory- Chest PT by percussion tid with albuterol, sinus CT scan and chest CT scan with contrast today. Pulmozyme 2.5mg daily. 3. ID- IV ceftriaxone q12h. 4. Labs: Ambry CF mutation analysis, Immunologic panels pending 5. Will consider repeat sweat chloride test. 6. Psychosocial--will need support Child Life and Psychology. 7. Disposition-anticipate 1-2 weeks. * Madhuri Villalta - 11/27/2008 6562 EDT Subjective: 24 hour events: Got PICC line then admitted to [facility]. C/o pain at PICC line site last night but now is resolved. CT scan unable to be performed last night and again this morning as Rosario became upset. Rosario had a good night last night. Mom did not noticed any coughing, wheezing, or rhinorrhea. No complaints of pain this am. Objective: Patient Vitals in the past 8 hrs: BP Temp Temp src Pulse Resp SpO2 Height Wt - Scale 11/27/08 0500 - 36.1 ??C (97 ??F) Tympanic 92 24 98 % - - 11/27/08 0100 - - - 114 24 99 % - - General Appearance: Alert, smiling, playing in ankit, NAD HEENT: PERRL, EOMI, mucus membranes moist, no pharyngeal erythema or exudate, tonsils enlarged, green PE tubes in place Neck: No thyromegaly, no LAD Cardiovascular: RRR, nl S1S2, no murmurs appreciated, good pulses Respiratory: CTAB, good respiratory effort Abdominal: soft, NT, ND, +BS, no HSM, no masses Extremities: no c/c/e Neurologic: appropriate mental status Dermatologic: No rashes seen No results found for this basename: CREATININE,BUN,NA,K,CL,CO2 Lab Results Component Value Date/Time ??? WBC 5.05 11/26/08 7:19 PM ??? HGB 11.5 11/26/08 7:19 PM ??? HCT 32.7 11/26/08 7:19 PM ??? MCV 83 11/26/08 7:19 PM ??? PLT 315 11/26/08 7:19 PM Last 3 Encounter SpO2 Readings: Date SpO2 11/14/2008 98% 10/09/2008 100% Assessment: Rosario Ace is a 2 y.o. female with a history of multiple episodes of OM s/p PE tubes x3, sinus infections, and chronic cough admitted yesterday for IV antibiotics after bronchoscopy revealed diffuse purulent secretions in all lobes and grew S. Pneumo, H. Flu, and M. Catarrhalis. She has beenon oral antibiotics multiple times in the past with recurrence of symptoms shortly after discontinua tion. She has also been on several inhalers in the past with little relief of symptoms. Of note, patient has never been hospitalized for any infections and has had completely normal growth and development. Nonetheless symptoms are concerning for bronchiectasis. Differential at this point includes primary ciliary dyskinesia (ciliary biopsy done 11/02/08 - EM result pending), CF (although s/p negative sweat test 05/03/08 and normal growth makes this less likley), chronic granulomatous disease (although has never had pneumonia or been hospitalized for any infection), allergic bronchopulmonary aspergillosis, or chronic reflux with aspiration. Overall doing very well at this point, very happy child, not ill-appearing. Plan: 1. FEN: Patient appears euvolemic. Follow I/Os. Diet NPO for this morning for sedated CT scan. 2. RESP: Patient without respiratory symptoms at this time. -Chest PT tid with albuterol -Pulmozymes 2.5mg daily -Chest CT with contrast and sinus CT -Consider repeat sweat test -CF mutation analysis 3. ID: S&S of bronchiectasis -Ctx 75mg/kg/day divided bid -Of note, patient has allergy to PCN (rash) so watch for cross-reactivity -Labs pending: quantitative immune globulins, IgG subclasses, IgE, nitroblue tetrazolium test, TTG,IgA, immunodeficiency panel 4. GI: Pt has taken prevacid for possible reflux in that past. Hold for now; watch for S&S of reflux. 5. PATIENT AND FAMILY SUPPORT: Child life, ped pyschology consulted as pt is likely to be in hospital for lengthy stay. Madhuri Villalta, [facility] Pager #[phone] Cosigned by Gianni Hernandez at 11/28/2008 15:50 EDT * Anh Lowery - 11/27/2008 0554 EDT No multi-disciplinary problems found Data: See Doc Flowsheet.No Complaints. Action: VS w/O2 sat q8hr. CPT /RT asordered.Meds via Power PICC.Await CT scan w/the help of Child Life today. Response: Slept. No distress. Picc line intact. VS remain stable through night. Anh Lowery RN 11/27/2008 5:55 AM * Karis Brunner RN - 11/26/2008 1502 EDT Pt continues with eyes closed. Mother @ bedside. * Karis Brunner RN - 11/26/2008 1419 EDT Pt arrived PPR. Sleeping comfortably. IV DC'd. Mother @ bedside. * Bria Solis - 11/26/2008 1414 EDT Pt. To IR for PICC line placement. Consent obtained by from mother. Proper pt. Identification made. Positioned supine on Angio table, prepped for procedure and care of pt. Assumed by Anesthesia Dept. Line placed under anesthesia with Propofol and pt. Monitored throughout procedure. Sumi. Well andsent to the comfort zone for recovery before returning to IP floor. Bria Solis RN documented in this encounter H&P Notes * Jason Mohan MD - 11/26/2008 2100 EDT Pediatric Resident Admit H&P Chief Complaint: Cough History of Present Illness Rosario Ace is a 2 y.o. female with a past history of several episodes of otitis media, PET x3, adeniodectomy, sinus infections, cough, wheeze and recent bronchoscopy (10/23) revealing bronchiectasis who presents with cough and possible acute exacerbation of bronchiectasis and further evaluation. Her mother reports that Rosario has had about 15 episodes of OM per year requiring PET three times and several sinus infections. She reports that Rosario has been on frequent anitbiotics (usually Omnicef) that improve her symptoms of wheezing, raspy breathing and coughing. However, her symptoms return when the antibiotics finish. Lately, her mother reports that the symptoms have been somewhat refractory to omnicef. She was recently placed on augmentin and feels that Rosario's symptoms are improved. Mother reports that she recently stopped Rosario's flovent, prevacid, and singulair. She has not noticed a change in her symptoms since stopping these medications. In addition, her mother has not noticed that Rosario's symptoms have resulted in a decrease or limitation in activity. ROS: Positive for cough, raspy breathing, wheezing, hoarse voice, rhinitis, foul- smelling stool, occasional sour taste in her mouth Negative for fever, weight loss, chills, rash, head aches, dizziness, hemoptysis, abdominal pain, constipation, emesis, mucus stool, decreased appetite Environmental History: The home has carpeting throughout. [...] history. No family history of cystic fibrosis. Past Medical History Past Medical History Diagnosis Date ??? OM (Otitis Media) ??? Asthma Always rattley per mom Mother reports ~15 OM per year. 3 PET. Adenoidectomy. Sinusitis several times per mother. Bronchoscopy 11/02/08. Possible milk protein allergy. No formally diagnosed pneumonia. No hospital admissions. Medications Current outpatient prescriptions prior to encounter Medication Sig Dispense Refill ??? lansoprazole (PREVACID) 15 mg capsule Take 15 mg by mouth 2 times daily. ??? fluticasone (FLOVENT) 110 mcg/Actuation inhaler Inhale 2 Puffs as directed every 12 hours. ??? levalbuterol (XOPENEX) 0.63 mg/3 mL nebulization Take 0.63 mg by nebulization every 4 hours as needed for Wheezing. ??? montelukast (SINGULAIR) 5 mg chewable tablet Take 5 mg by mouth at bedtime. ??? SODIUM FLUORIDE ORAL Take 1 Tab by mouth. ??? cefdinir (OMNICEF) 300 mg capsule Take 250 mg by mouth 2 times daily. 250 mg/ml, takes 1/2 tsp ??? Sodium Fluoride (ACT FLUORIDE) 0.05 % Soln Place 1 Units onto teeth daily. ??? Multivitamins with Minerals Tab Take 1 Tab by mouth three times a week. Allergies Allergies Allergen Reactions ??? Penicillins Rash ??? Amoxicillin Rash ??? Milk Nausea And Vomiting And itchy, rash, nasal congestion ??? Adhesive Tape Other (See Comments) blisters Mother reports patient is only taking augmentin now. Immunizations UTD Family History No family history on file. Mother with asthma Development History Normal per mother. Daycare states no concerns. Mother reports 75% for height and 50% for weight. Social History Lives with mother, father, brother, and maternal grandmother. Positive smoke exposure in the house. + cats, + carpet History PMH: history: 42 weeks' gestation by vaginal delivery; weight 8 pounds 14 ounces. Objective Data Filed Vitals: 11/26/2008 5:09 PM 11/26/2008 5:26 PM 11/26/2008 6:02 PM 11/26/2008 8:13 PM BP: 87/59 Pulse: 57 107 Temp: 36.6 ??C (97.9 ??F) TempSrc: Tympanic Resp: 20 Weight: 16.6 kg (36 lb 9.5 oz) 16.6 kg (36 lb 9.5 oz) SpO2: 98% 100% No results found for this basename: CREATININE,BUN,NA,K,CL,CO2 No results found for this basename: WBC,HGB,HCT,MCV,PLT General Appearance: No acute distress, Very active, interactive HEENT: DESI, EOMI, conjugate gaze, mucus membranes moist, no pharyngeal erythema or exudate, greenPET in place bilaterally, no erythema in ear canal, no lymphadenopathy, Cardiovascular: RRR, no murmur, 2+ radial and DP bilaterally, perfusion good Respiratory: CTAB, symmetrical chest excursion, no increased WOB Abdominal: + BS, soft, non-tender, no masses, no HSM Extremities: equal movement and strength, no clubbing or cyanosis Neurologic: Alert, interactive, developmentally appropriate, sensation intact, strength good and equal Dermatologic: no rashes, no cyanosis, Assessment Rosariojuan Evangelistaur is a 2 y.o. female with a history of repeat OM, sinusitis, raspy breathing, cough, and wheezing who presents with acute symptoms concerning for bronchiectasis. The differential diagnosis for bronchiectasis in a 2 y/o is relatively short and includes cystic fibrosis, immune deficiencies, chronic pulmonary infections (i.e. Mycoplasma, klebsiella, staphylococcus), chronic aspiration, primary ciliary dyskinesia, allergic bronchopulmonary aspergillosis, bronchopulmonary sequestration, or connective tissue disorders. Rosario has had a negative sweat test and has no signs of malabsorption making CF less likely. She has had a bronchoscopy with lavage and biospsy. The lavage showed streptocossus, M. Cattarallis, and H. Influenza without anatomic abnormalities. The goals of this admission are to treat Rosario with IV antibiotics, obtain studies of immune system function, obtain studies to evaluate for ABPA, evaluate chest and sinus with imaging (CT) for anatomy and signs of chronic infection. Plan FEN: Patient appears euvolemic. - Regular Diet - Follow I/O - Obtain admit height and weight and plot of growth chart RESP: No signs of respiratory distress on exam. - Trial chest PT tid with albuterol for clearance - Dornase 2.5mg daily for clearance - Chest CT with contrast and sinus CT for exploration of anatomy - Consider repeat sweat test ID: Signs and symptoms of bronchiectasis. Differential Dx includes immune deficiencies. - Ceftriaxone 75mg/kg Daily divided BID. Watch for signs of cross-reactivity because of patient's allergy to PCN family. - Per Dr. Franklin: immune globulins, IgG subclasses, IgE, CF mutation analysis, CBC with diff, nitroblue tetrazolium test, TTG, immunodeficiency panel GI: Patient usually takes prevacid as an outpatient. - Hold prevacid for now. Follow symptoms. Consider restarting based on symptoms. PATIENT AND FAMILY SUPPORT: Patient is likely admitted for lengthy workup and treatment for bronchiectasis of unknown cause. Patient and mother appear to be in good spirits at this time. Explained assessment and reviewed plan with patient and family. Will involve Child Life, Pediatric Psychology and Social Work as necessary. Jason Mohan MD Pager [phone] * Madhuri Villalta - 11/26/2008 1637 EDT Pediatric Resident Admit H&P Chief Complaint:Recurrent OM and sinus infections, persistent cough History of Present Illness Rosario Ace is a 2 y.o. female with a history of persistent cough, wheeze, and sinus complaints beginning at the age of 1 year. She has also had several ear infections (~15 per year prior to PEtube placement) starting at the age of 2 months. She has been on antibiotics multiple times throughout her life for these complaints; however, mom reports her symptoms (cough, rhinorrhea) recur within 1-2 days after discontinuation of abx. Cough is generally non-productive and does not occur at anyparticular time of day. Until recently, Rosario was on flovent, prevacid, singulair, and xopenex with suboptimal results. Mom discontinued all of her medications recently and reports that Rosario hasbeen better than she's been in months. Rosario has never had any difficulty keeping up with otherchildren her age. She has a good appetite and energy level and per mom there have never been any concerns about her growth. She is being admitted today for IV antibiotic therapy after bronchoscopy was positive for B-lactamase producing H. Flu, resistant Moxarella, and S. Pneumo. Mom denies fever, weight loss, abdominal pain, n/v/c/d, urinary difficulties, or rash ROS negative except for above. Past Medical History Past Medical History Diagnosis Date ??? OM (Otitis Media) ??? Asthma Always rattley per mom Born @ 42 weeks gestation ; BW 8lb 14oz S/p PE tube placement 02/19, 10/21, and 08/23 S/p adenoidectomy 10/21 *No h/o overnight hospitalizations, no history of pneumonia Medications Current outpatient prescriptions prior to encounter Medication Sig Dispense Refill ??? lansoprazole (PREVACID) 15 mg capsule Take 15 mg by mouth 2 times daily. ??? fluticasone (FLOVENT) 110 mcg/Actuation inhaler Inhale 2 Puffs as directed every 12 hours. ??? levalbuterol (XOPENEX) 0.63 mg/3 mL nebulization Take 0.63 mg by nebulization every 4 hours as needed for Wheezing. ??? montelukast (SINGULAIR) 5 mg chewable tablet Take 5 mg by mouth at bedtime. ??? SODIUM FLUORIDE ORAL Take 1 Tab by mouth. ??? cefdinir (OMNICEF) 300 mg capsule Take 250 mg by mouth 2 times daily. 250 mg/ml, takes 1/2 tsp ??? Sodium Fluoride (ACT FLUORIDE) 0.05 % Soln Place 1 Units onto teeth daily. ??? Multivitamins with Minerals Tab Take 1 Tab by mouth three times a week. Allergies Allergies Allergen Reactions ??? Penicillins Rash ??? Amoxicillin Rash ??? Milk Nausea And Vomiting And itchy, rash, nasal congestion ??? Adhesive Tape Other (See Comments) blisters Immunizations Up to date Family History Mom - asthma, allergies Brother (4) - asthma *No FH of CF Development History Normal development Social History Lives with parents, 4 yo brother, and grandmother. Attends daycare 5 days/week (mom owns a daycare). Significant past smoke exposure in father and grandfather, who smoked both in the home and in the car. Objective Data Wt. 16.6kg Filed Vitals: 11/26/2008 2:45 PM 11/26/2008 3:01 PM 11/26/2008 3:15 PM 11/26/2008 3:32 PM Pulse: 70 73 88 80 Temp: 36.7 ??C (98.1 ??F) 37.1 ??C (98.8 ??F) 37.2 ??C (99 ??F) TempSrc: Temporal Temporal Temporal Resp: 16 16 20 20 Weight: SpO2: 99% 100% General Appearance: Alert, smiling, playing in ankit, NAD HEENT: DESI, EOMI, mucus membranes moist, no pharyngeal erythema or exudate, tonsils enlarged, green PE tubes in place Neck: No thyromegaly, no LAD Cardiovascular: RRR, nl S1S2, no murmurs appreciated, good pulses Respiratory: CTAB, good respiratory effort Abdominal: soft, NT, ND, +BS, no HSM, no masses Extremities: no c/c/e Neurologic: appropriate mental status Dermatologic: No rashes seen Assessment Rosario Ace is a 2 y.o. female admitted for IV antibiotics following bronchoscopy growing S. Pneumo, H. Flu, and M. Catarrhalis. Symptoms of cough, wheeze, and rhinorrhea have persisted despiteextensive use of antibiotics over the years. The patient had a normal sweat test 04/23 but CF is still being considered (although quite unlikely given good growth, one negative test, and no FH). Ciliary biopsy results for possible primary ciliary dyskinesia pending as well. Also considering chronicgranulomatous disease (although unlikely as this patient has never been hospitalized for any infection) and chronic reflux with aspiration. Patient also with several exposures including daycare and extensive tobacco smoke exposure; perhaps symptoms secondary to environmental irritants. Plan FEN: Patient appears euvolemic. No IVFs necessary. Regular diet. RESP: Chest PT by percussion tid with albuerol, sinus CT scan, chest CT with contrast. Pulmozyme 2.5mg daily. Will obtain several labs for the potential etiologies listed above including immunoglobulins, IgG subclasses, IgE, CF mutation analysis, immunodeficiency panel with T, B, and NK cell subsets. Will also consider repeat sweat chloride test. ID: IV abx with ceftriaxone 630mg q12h. Pt had PICC placement today prior to admission. PATIENT AND FAMILY SUPPORT: Child life and psychology have been consulted DISPO: RASHID 1-2 weeks pending further workup Madhuri Villalta, [facility] Pager #[phone] Cosigned by Gianni Hernandez at 11/28/2008 15:50 EDT * James Franklin MD - 11/26/2008 3991 EDT CC: Bronchiectasis with acute exacerbation HPI: Rosario is 2-year-old girl with a history of refractory cough and wheeze. Her symptoms have improved somewhat with prolonged periods of oral antibiotics, but symptoms seem to recur when antibiotics are completed. She has had a suboptimal response to bronchodilators and steroids, continues to have ???raspy?? breathing and a productive sounding cough. She had several months of chronic rhinitis although this has improved. She is status post PE tube placement (x2) and adenoidectomy. In general, she does not have wet burps, abdominal discomfort, nor does she complain of chest pain. Her parents notice that she does have a sour breath occasionally. Her voice is often hoarse as well. She has a good appetite and has 2 formed stools per day. Her energy level is good. She has received an extensive evaluation by allergy and her passenger coach driver. ROS: no fever, chills, hemoptysis, diarrhea, emesis, rash. All other systems were reviewed and negative. PMH: history: 42 weeks' gestation by vaginal delivery; weight 8 pounds 14 ounces. Status post PE tube placement in 02/2006, 10/2006, 08/24/08. Adenoidectomy: 10/2006 Never diagnosed with pneumonia, although sinusitis has been presumed on numerous occasions. She hasnot been hospitalized. Allergies: She has a milk protein allergy [...] family history of cystic fibrosis. Social History: Rosario does attend daycare, 5 days per week. She lives with her parents and 4-year-old brother as well as grandmother. Current Medications: Fluoride daily P.E.: AVSS General Appearance: alert, comfortable appearing child, in no acute distress. HEENT: Pupils equal, round, and reactive. Conjunctivae were pink. Tympanic membranes were sahni with PE tubes in place. Nares are clear. Oropharynx without erythema or exudate. Tonsils were 2+, enlarged. Some cobblestoning with postnasal drip was evident. Neck was supple with a few mildly enlarged submandibular nodes. Chest: Good air entry. Intermittent coarse, transmitted sounds on both inspiration and expiration were heard. No crackles were appreciated. No wheezes, retractions, significant prolongation of the expiratory phase, or accessory muscle use was evident. Cardiac: S1 and S2 were heard with a regular rhythm. Abdomen soft NT ND, no organomegaly Extremities were without clubbing. Other Studies: Bronchoscopy cultures: (11/02/08) S.pneumonae, H.influenzae, M.catarhalis; Fungal- Mycelia sterilia; 04/23 sweat test negative (chlorides 16/14). 08/2007: immunoglobulins normal, immunization antibody titers normal with good pneumococcal response to 10 serotypes. IMPRESSION: Rosario is a 2 year old child who is admitted with presumed bronchiectasis with acute exacerbation. Her symptoms have persisted despite aggressive outpatient treatment including oral antibiotics, inhaled steroids, and surgical interventions. The appearance of her airways on bronchoscopywas especially striking with diffuse purulent secretions in all lobes. Cystic fibrosis remains in the differential despite the normal sweat chloride. Primary ciliary dyskinesia is a less common causeof chronic sino-pulmonary disease and remains high in the differential. We are waiting for the results of the ciliary biopsies done at the time of the bronchoscopy in October. Other diagnoses (chronic granulomatous disease, etc.) should be considered. We plan to address her continued respiratory symptoms with parenteral antibiotics, aggressive airway clearance, immunodeficiency testing as well as genetic testing for CF. Plan: 1. FEN- regular diet 2. Respiratory- Chest PT by percussion tid with albuterol, sinus CT scan and chest CT scan with contrast. Pulmozyme 2.5mg daily. 3. ID- PICC placement by IR with sedation; then IV ceftriaxone q12h. Consulted Pedi ID. 4. Labs: Immune globulins, IgG subclasses, IgE, Ambry CF mutation analysis, CBC with diff, nitroblue tetrazolium test, tTGA, immunodeficiency panel with T, B and NK cell subsets. 5. Consider repeat sweat chloride test. 6. Psychosocial--will need support Child Life and Psychology. 7. Disposition-anticipate 1-2 weeks. documented in this encounter Procedure Notes * Inpatient, Physician - 12/10/2008 1031 EDTAssociated Order(s): IMPLANT RECORD (PACEMAKER ONLY) - SCANNED * Inpatient, Physician - 12/10/2008 1031 EDTAssociated Order(s): ORDERS - SCANNED documented in this encounter Consult Notes * Dinorah Anglin RD - 11/28/2008 1421 EDT 11/28/08 Nutrition S. Mother states that Rosario loves a certain kind of soy milk, she may have to go out to purchase some She also mentioned that she doesn't eat a lot of meat O. Regular H/H 11.7/32.7 Consult Milk protein allergy Weight 16.8 kg A. Weight ~60th% for age Was eating pizza without the cheese (probably has small amounts of dairy on it) Mother overall tries to avoid dairy. I gave her a guideline on how to read labels from the allergy network along with their WEB site and phone number I also gave her a caf pass to help with choices while here I reviewed ways to add more iron into her diet; patti. with dry cereal and the need to continue to offer small amounts of a variety of meats P. Regular Diet Caf pass given Be available if further ques. Arise Thank you, Dinorah Anglin RD CD CSP Beeper [phone] * Vaishali Chan - 11/26/2008 1419 EDT S: Hand Clerical Verifier consulted for procedural education and distraction. O: Rosario arrived to [facility] with mom. A: Rosario is a smiley delightful child and is developmentally on target. She presents shy, but smiles and laughs a lot. Rosario enjoys crafts! She loves to color, anything mallory, and crafts that include glue. In the [facility] she also made multiple mallory crowns. She likes to be busy. Rosario has visited the [facility] in the past. Hand Clerical Verifier prepped Rosario for her I.V start and PICC placement. Rosario did medical play during her last visit to the [facility]. She enjoyscoloring the medical play doll and the medical supplies. Hand Clerical Verifier showed Rosario what her PICC will look like on a teaching doll. Mom was also educated about the PICC and dressing changes. Rosario listens well and is very interactive. The I.V. Placement went well. The Emla wasn't affective for Rosario on her hand, she felt her I.V. Hand Clerical Verifier used a mallory book and I-SpyStrawberry Shortcake for distraction. Rosario enjoys bubbles as well. She is being admitted to [place] [address] for one week upon anesthesia recovery. Rosario and her mom were wonderful to work with. P: (1) Hand Clerical Verifier will continue to follow Rosario throughout her hospitalization. (2) Hand Clerical Verifier is available upon request. (3) Hand Clerical Verifier will continue to provide therapeutic and diversional activities during hospitalization. DIANE Strange Child Life Department [facility] Pager#[phone] documented in this encounter OR Notes * Anesthesia Procedure Notes - PRACTICE LEAD, NORAH 2 - 11/15/2012 1305 EDT * Anesthesia Procedure Notes - Inpatient, Physician - 12/10/2008 1031 EDT * Anesthesia Preprocedure Evaluation - Inpatient, Physician - 12/10/2008 1031 EDT documented in this encounter Miscellaneous Notes * Scanned Note-Null - Inpatient, Physician - 01/19/2009 1445 EDT * Scanned Note-Null - Inpatient, Physician - 12/10/2008 1031 EDT * Scanned Note-Null - Inpatient, Physician - 12/10/2008 1031 EDT * Plan of Care - Jason Mohan MD - 12/01/2008 1016 EDT Subjective: Rosario is a 2yo girl here with a history of chronic ear, sinus, and respiratory infection; workup for an underlying disease process has been negative so far. She is also receiving antimicrobial tx and chest PT for a bronchoscopic culture that grew M.cat, s. pneumo and H. influenza. She has felt well and is sleeping well according to her mom. Her chest sounds a bit rattley after the hypertonic saline treatments, but this clears shortly. No coughing or wheezing overnight. Her bowl movements havereturned to normal over the past day (no diarrhea last night), and Rosario's father brought a supply of the soy milk Rosario typically drinks at home. Rosario has a wart on her toe that occasionally bothers her. Objective: Filed Vitals: 11/30/2008 9:00 PM 12/01/2008 4:00 AM 12/01/2008 9:00 AM 12/01/2008 9:51 AM BP: 95/57 92/52 Pulse: 88 78 98 Temp: 35.9 ??C (96.6 ??F) 36.3 ??C (97.3 ??F) 35.7 ??C (96.3 ??F) TempSrc: Tympanic Tympanic Resp: 28 21 18 24 Height: Weight: SpO2: 92% 98% 94% EXAM: General: alert in no acute distress, smiling and playing HEENT: PERRLA, sclera white, EOMs intact; sinuses non-tender; Nose and sinus: Nose: no discharge, Mouth and throat: Palate/pharynx: moderate tonsillar enlargement bilaterally, some cobblestoning visible Lungs: good respiratory effort without signs of increased work, breath sounds clear throughout withno wheezing or crackles Heart: Normal PMI. regular rate and rhythm, normal S1, S2, no murmurs or gallops. Abdomen: +BS; Normal appearance, soft, non-tender, without organ enlargement or masses. Ext: PICC in right arm, wrapped; no drainage or swelling Skin: normal color, no jaundice or rash; has wart on right 3rd toe. LABS: pneumococcal titers pending, CF mutation analysis pending Assessment: Rosario is a 2yo girl with a history of persistent otitis media, sinusitis, and cough since a few months of age, with a presumed dx of brochiectasis. She is here for aggressive treatment of multiple lung pathogens that grew from cx on bronchoscopy done in October 23 as well as further workup of the etiology of her respiratory syndrome. Rosario continues to look very well clinically. From a pulmonary perspective, the workup of her chronic symptoms remains inconclusive. The repeat negative sweat test is reassuring but some form of CFcan't be ruled out with certainty based on those results. The genetic analysis (pending) may provide more information when it's complete. At this point I feel the most likely cause is a combination of environmental exposures at home (smoke, daycare, pets) and an allergic process that has become chronic. Her (now resolving) loose stools are most likely dietary in origin. Other possibilities are a medication side effect (ceftriaxone) or possibly hospital acquired C. difficile. If her stools continue to be normal, C. difficile is unlikely and likely no further workup is needed at the time. Plan: FEN: 1) continue probiotic (Lactinex) 1 tablet three times daily with meals RESP: 1) continue with chest PT three times daily with albuterol and hypertonic saline 2) Pulmozyme 2.5mg PO daily 3) continue to monitor VS including SpO2 ID: 1)continue ceftriaxone 630mg IV q12h for positive bronchoscopy cultures 2) monitor for ssx allergic rxn in setting of known PCN allergy 3) will plan to continue through PICC after discharge for the full two-week course 4) if continued frequent loose stool, consider C. diff assay PATIENT/FAMILY SUPPORT: 1) likely to discharge home after the weekend (12/03) Salvatore Raza, MSIII [id number] I saw the patient and agree with the above note. Jason Mohan MD Pager [phone] documented in this encounter Plan of Treatment Upcoming Encounters Date Type Department Care Team (Late st Contact Info) Description 04/24/2024 15:30 EST Telemedicine [facility] Pediatric Pulmonary - Main [address] [id number] Lucy Rodgers MD [address] [place] [phone] Pending Results Name Type Priority Associated Diagnoses Date /Time CT SINUS COMPLETE WO CONTRAST Imaging 11/26/2008 18:[address] CHEST W CONTRAST Imaging 11/26 18:46 EDT documented as of this encounter Procedures Procedure Name Priority Date/Time Associated Diagnosis Comments IMPLANT RECORD - SCANNED 009 10:31 EDT ORDERS - SCANNED 12/10/2008 10:3 1 EDT ZZS PNEUM 23 SEROTYPES Routine 9 15:10 EDT SWEAT TEST Routine 11/29/2008 12:00 EDT MISCELLANEOUS TEST, WHOLE BLOOD Routine 11/26/2008 20:23 EDT CYSTIC FIBROSIS MUTATION ANALYSIS, 106 PANEL Routine 11/26/2008 19:19 EDT TISSUE TRANSGLUTAMINASE ANTIBODY Routine 11/26/2008 19:19 EDT IGG SUBCLASSES Routine 11/26/2008 19:19 EDT T, B, NK SUBSETS Routine 11/26/2008 19:1 9 EDT COMPLETE BLOOD COUNT AND DIFFERENTIAL Routine 11/26/2008 19:19 EDT IMMUNOGLOBULINS Routine 11/26/2008 19:19 EDT IGE Routine 11/26/2008 19:19 EDT INPATIENT ADD-ON Routine 11/26/2008 18:1 5 EDT CFTR AMPLIFIED (AMBRY) Routine 9 8:46 EDT documented in this encounter Results * IMPLANT RECORD (PACEMAKER ONLY) - SCANNED (12/10/2008 10:31 EDT) 12/10/2008 10:3 1 EDT Narrative 12/10/2008 11:03 EDT Ordered by an unspecified provider. Transcriptions Inpatient, Physician - 12/10/2008 10:31 EDT Physician Inpatient MD PROCEDURE/MINOR SURGICAL ORDERABLES Final Result * ORDERS - SCANNED (12/10/2008 10:31 EDT) 12/10/2008 10:3 1 EDT Narrative Procedure Note Inpatient, Physician - 12/10/2008 10:31 EDT Physician Inpatient MD ADMISSION ORDERABLES Virginia l Result * S PNEUM 23 SEROTYPES (11/29/2008 15:10 EDT) Serotype 1 (1) 0.4Reference range: <8.2 Unit: mcg/mL [facility] Serotype 2 (2) 0.3Reference range: <7.4 Unit: mcg/mL [facility] Serotype 3 (3) 0.4Reference range: <6.9 Unit: mcg/mL [facility] Serotype 4 (4) 5.3Reference range: <4.1 Unit: mcg/mL [facility] Serotype 5 (5) <0.4Reference range: <28.8 Unit: mcg/mL [facility] Serotype 8 (8) 1.4Reference range: <13.3 Unit: mcg/mL [facility] Serotype 9N (9) 5.6Reference range: <16.6 Unit: mcg/mL [facility] Serotype 12F (12) <0.1Reference range: <4.3 Unit: mcg/mL [facility] Serotype 14 (14) 13.2Reference range: <22.9 Unit: mcg/mL [facility] Serotype 17F (17) 1.8Reference range: <44.8 Unit: mcg/mL [facility] Serotype 19 (19F) 47.5Reference range: <16.0 Unit: mcg/mL [facility] Serotype 20 (20) 0.4Reference range: <12.1 Unit: mcg/mL [facility] Serotype 22F (22) 3.7Reference range: <32.4 Unit: mcg/mL [facility] Serotype 23F (23) 8.4Reference range: <49.0 Unit: mcg/mL [facility] Serotype 6B (26) 39.1Reference range: <15.3 Unit: mcg/mL [facility] Serotype 10A (34) 0.9Reference range: <25.5 Unit: mcg/mL [facility] Serotype 11A (43) 11.1Reference range: <9.7 Unit: mcg/mL [facility] Serotype 7F (51) 0.9Reference range: <30.8 Unit: mcg/mL [facility] Serotype 15B (54) 0.4Reference range: <12.8 Unit: mcg/mL [facility] Serotype 18C (56) 1.6Reference range: <7.0 Unit: mcg/mL [facility] Serotype 19A (57) 2.9Reference range: <28.1 Unit: mcg/mL [facility] Serotype 9V (68) 15.4Reference range: <44.0 Unit: mcg/mL [facility] Serotype 33F (70) 2.0Reference range: <7.5 Unit: mcg/mL To aid in interpretation of the pneumococcal antibody ? results and to ensure consistency in interpretation with ? other immunodeficiency practices and the [facility] Practice ? Guidelines (on interpretation of pneumococcal vaccine ? responses) we suggest that the following criteria would ? be consistent with a normal immune response: ? (1) ??A titer of 1.3 ug/ml antibody or ?more, irrespective of a 4-fold change from the ?pre-vaccination response, if the titer is less than ?1.3 ug/ml. ? (2) ??In children ages 2-5 years a titer of 1.3 ug/ml or ?greater to =>50% of the serotypes; in adults, a ?titer of 1.3 ??ug/ml or greater to =>70% of ?serotypes. ? References: ? 1. ??Assessment and clinical interpretation of ? polysaccharide antibody responses. Kaia K and ? Juanito FABIAN. Annals of Allergy, Asthma and ? Immunology, 2007, 99: 462-4. ? 2. ??Influence of age on the response to Streptococcus ? pneumoniae vaccine in patients with recurrent ? infections and normal immunoglobulin concentrations. ? Juanito FABIAN, Kwame VICENTE, Brien III, FC et al, Journal ?of Allergy and Clinical Immunology, 1998, 102: 215-21. ? Performed or Referred by: [facility] Med and Path, [address] [place] [address], Lab Dir: Oleg Young III, ? MD ? [facility] 11/29/2008 15:1 0 EDT 11/29/2008 15:20 EDT us Jason Mohan MD IMMUNOLOGY AND SEROLOG Y ORDERABLES Final Result Performing Organization Address City/State/[facility] Co de Phone Number [facility] [address] [place] [address] * SWEAT TEST (11/29/2008 12:00 EDT) Sweat Chloride 28 mEq/L [facility] Comment: Less than 40 mEq/L = Negative 40-60 mEq/L = Borderline Greater than 60 mEq/L = consistent with the diagnosis of cystic fibrosis Sweat chloride values less than 40 mEq/L have been documented in genetically proven CF patients. ??Clinical correlation is necessary. Result must be interpreted with regard to the patient's age and clinical presentation. Sweat Weight 0.2579 gm [facility] Collection Site 1 Left Arm [facility] Sweat Chloride 24 mEq/L [facility] Comment: Less than 40 mEq/L = Negative 40-60 mEq/L = Borderline Greater than 60 mEq/L = consistent with the diagnosis of cystic fibrosis Sweat chloride values less than 40 mEq/L have been documented in genetically proven CF patients. ??Clinical correlation is necessary. Result must be interpreted with regard to the patient's age and clinical presentation. Sweat Weight 0.1067 gm [facility] Collection Site 2 Right Arm [facility] Specimen of unknown material (specimen) 11/29/2008 12:00 EDT 11/29/2008 13:11 EDT Gianni Hernandez MD CHEMISTRY & BLOOD GAS ORDER DAMIEN Final Result Performing Organization Address [facility] de Phone Number [facility] [address] [place] [address] * MISCELLANEOUS TEST, WHOLE BLOOD (11/26/2008 20:23 EDT) Pathologist [facility] Test Name NEUTROPHIL OXIDATIVE BURST, SODIUM HEPARIN WHOLE BLOOD [facility] Result Normal. Not consistent with CGD. [facility] Reference Ranges: Normal [facility] Ref Lab Test performed by: [facility], [place] [facility] 11/26/2008 20:2 3 EDT 11/26/2008 20:28 EDT James Franklin MD CHEMISTRY & BLOOD GAS ORDERABLE S Final Result Performing Organization Address [facility] de Phone Number [facility] [address] [place] [address] * IMMUNOGLOBULINS (11/26/2008 19:19 EDT) IgG 888 423 - 1090 mg/dl [facility] IgA 74 22 - 157 mg/dl [facility] IgM 83 45 - 190 mg/dl [facility] Blood specimen (specimen) 11/26/2008 19:19 EDT 11/26/2008 20:42 EDT Jason Mohan MD CHEMISTRY & BLOOD GAS ORDERABLES Final Result Performing Organization Address [facility] Co de Phone Number [facility] [address] [place] [address] * IMMUNODEF PANEL B + NK (11/26/2008 19:19 EDT) CD3 76 % [facility] Comment:Sample retested, res ult confirmed CD4 47 % [facility] Comment:Sample retested, res ult confirmed CD8 22 % [facility] Comment:Sample retested, res ult confirmed CD16+CD56 8 % [facility] Comment:Sample retested, res ult confirmed CD19 16 % [facility] Comment:Sample retested, res ult confirmed Absolute CD4 890 per UL [facility] Comment:Sample retested, res ult confirmed Blood specimen (specimen) 11/26/2008 19:19 EDT 11/26/2008 20:42 EDT Jason Mohan MD IMMUNOLOGY AND SEROLOG Y ORDERABLES Final Result Performing Organization Address [facility] de Phone Number [facility] [address] [place] [address] * TISSUE TRANSGLUTAMINASE ANTIBODY (11/26/2008 19:19 EDT) Pathologist [facility] Tissue Transglutaminase Ab 1.86 <15.01 U/ml [facility] Blood specimen (specimen) 11/26/2008 19:19 EDT 11/26/2008 20:42 EDT Jason Mohan MD IMMUNOLOGY AND SEROLOG Y ORDERABLES Final Result Performing Organization Address [facility] de Phone Number [facility] [address] [place] [address] * CYSTIC FIBROSIS MUTATION ANALYSIS (11/26/2008 19:19 EDT) Specimen FLOOR ORDER CORRECTION [facility] Blood specimen (specimen) 11/26/2008 19:19 EDT 11/26/2008 20:42 EDT us Jason Mohan MD CHEMISTRY & BLOOD GAS ORDERABLES Final Result Performing Organization Address [facility]/ZIP Co de Phone Number [facility] [address] [place] [address] * IGE (11/26/2008 19:19 EDT) Pathologist [facility] IgE 110 IU/ml [facility] Blood specimen (specimen) 11/26/2008 19:19 EDT 11/26/2008 20:42 EDT Jason Mohan MD CHEMISTRY & BLOOD GAS ORDERABLES Final Result Performing Organization Address [facility] Co de Phone Number [facility] [address] [place] [address] * IGG SUBCLASSES (11/26/2008 19:19 EDT) [facility] Total IgG 793Reference range: 295 to 1156 Unit: mg/dL [facility] IgG 1 586Reference range: 158 to 721 Unit: mg/dL [facility] IgG 2 122Reference range: 39 to 176 Unit: mg/dL [facility] IgG 3 36.7Reference range: 17.0 to 84.7 Unit: mg/dL [facility] IgG 4 12.9Reference range: 0.4 to 49.1 Unit: mg/dL Performed or Referred by: [facility] Med and Path, [address] ?? [place] [address], Lab Dir: MD [facility] S[facility] Blood specimen (specimen) 11/26/2008 19:19 EDT 11/26/2008 20:42 EDT Jason Mohan MD CHEMISTRY & BLOOD GAS ORDERABLES Final Result Performing Organization Address [facility] Co de Phone Number [facility] [address] [place] [address] * (ABNORMAL) HEMAGRAM AND DIFFERENTIAL (11/26/2008 19:19 EDT) [facility] WBC 5.05(L) 5.5 - 15.5 K/cmm [facility] RBC 3.96 3.90 - 5.30 M/cmm [facility] Hemoglobin 11.5 11.5 - 13.5 gm/dl [facility] HCT 32.7(L) 34.0 - 40.0 % [facility] MCV 83 75 - 87 fl [facility] MCH 29.0 pg [facility] MCHC 35.1 gm/dl [facility] PLT 315(H) 156 - 312 K/cmm [facility] RDW-CV 13.5 % [facility] Neutrophils 52.2 % [facility] Lymphocytes 37.8 % [facility] Monocytes 7.7 % [facility] Eosinophils 1.6 % [facility] Basophils 0.7 % [facility] ABS Neutrophils 2.64 K/cmm [facility] ABS Lymphs 1.91 K/cmm [facility] ABS Monocytes 0.39 K/cmm [facility] ABS Eosinophils 0.08 K/cmm [facility] ABS Basophils 0.03 K/cmm [facility] Type of Diff: Automated [facility] Blood specimen (specimen) 11/26/2008 19:19 EDT 11/26/2008 20:42 EDT us Jason Mohan MD PACKAGES & DNA PROBE O RDERABLES Final Result Performing Organization Address City/[facility] Co de Phone Number [facility] [address] [place] [address] * INPATIENT ADD-ON (11/26/2008 18:15 EDT) Tests to be added Nitroblue tetrazolium test [facility] Number for problems [id number] [facility] Accession number SPOKE TO LONG AND ADVISED HER HOW TO ORDER NEW ORDER [facility] 11/26/2008 18:1 5 EDT 11/26/2008 18:49 EDT Jason Mohan MD HEMATOLOGY & PF4 ORDER DAMIEN Final Result [facility] [address] [place] [address] * [employer] CYSTIC FIBROSIS TESTING (11/26/2008 8:46 EDT) Gabrielle Wiseryou Cystic Fibrosis Testing See supplementary reportTest performed by:Kindra Shaikh [place] Known mutation(s): None detected ? Variants of Unknown Significance: None detected ? Poly T Variant: 7T/7T ? Gross deletion(s)/Dupli cation(s): None detected ? [facility] 11/26/2008 8:46 EDT 11/27/2008 8:46 EDT James Franklin MD CHEMISTRY & BLOOD GAS ORDERABLE S Final Result Performing Organization Address [facility] de Phone Number [facility] [address] [place] [address] documented in this encounter Visit Diagnoses Diagnosis Bronchiectasis with acute exacerbation ([facility])- Primary Bronchiectasis with acute exacerbation documented in this encounter Administered Medications Inactive Administered Medications - up to 3 most recent administrations Medication Order MAR Action Action Date Dose Rate Site acetaminophen (TYLENOL) solution 249.1 mg 249.1 mg (15 mg/kg ? 16.6 kg), oral, EVERY 4 HOURS PRN, Starting on Wed11/26/08 at 1807, Until Wed12/04/08 at 0255, Pain, Routine Given 11/27/2008 21:56 EDT 249.1 mg albuterol (PROVENTIL HFA, VENTOLIN HFA) inhaler 2 Puff 2 Puff, inhalation, 3 TIMES DAILY, First dose on Wed11/26/08 at 2100, Until Discontinued, Routine Given 12/03/2008 11:15 EDT 2 Puffs Given 12/02/2008 21:56 EDT 2 Puffs Given 12/02/2008 14:00 EDT 2 Puffs cefTRIAXone (ROCEPHIN) 630 mg in sodium chloride 0.9 % 50 mL IVPB 630 mg, intravenous, Administer over 30 Minutes, EVERY 12 HOURS (2 times per day), First dose on Wed11/26/08 at 2100, Until Discontinued, Routine Given 12/02/2008 9:00 EDT 630 mg Given 12/01/2008 21:00 EDT 630 mg Given 12/01/2008 9:00 EDT 630 mg cefTRIAXone (ROCEPHIN) 630 mg in sodium chloride 0.9 % 50 mL IVPB 630 mg, intravenous, Administer over 30 Minutes, EVERY 12 HOURS (2 times per day), 1 dose, First dose (after last modification) on Wed12/02/08 at 2100, Routine Given 12/02/2008 21:00 EDT 630 mg dornase alpha (PULMOZYME) nebulizer solution 2.5 mg 2.5 mg, inhalation, DAILY, First dose (after last modification) on Wed11/27/08 at 0900, Until Discontinued, Routine Given 12/03/2008 11:15 EDT 2.5 mg Given 12/02/2008 8:50 EDT 2.5 mg Given 12/01/2008 9:17 EDT 2.5 mg lactobacillus acidophilus & bulgar (LACTINEX) 1 million cell chewable tablet 1 Tab 1 Tablet, oral, 3 TIMES DAILY WITH MEALS, First dose on Wed11/29/08 at 1215, Until Discontinued, Routine Given 12/02/2008 17:00 EDT 1 Tablet Given 12/02/2008 12:00 EDT 1 Tablet Given 12/02/2008 8:00 EDT 1 Tablet lidocaine-prilocaine (EMLA) 2.5-2.5 % cream topical (top), Once (Without Time Specified), 1 dose, Starting on 11/26/08 at 1014, Until 11/26/08 at 1021 Given 11/26/2008 10:21 EDT sodium chloride 3 % solution for nebulization 4 mL 4 mL, nebulization, 2 TIMES DAILY, First dose on [place] 11/29/08 at 1215, Until Discontinued, Routine Given 12/03/2008 11:15 EDT 4 mL Given 12/02/2008 22:07 EDT 4 mL Given 12/02/2008 8:25 EDT 4 mL documented in this encounter Discontinued Medications Medication Sig Discontinue Reason Start Date End Da te lansoprazole (PREVACID) 15 mg capsule Take 15 mg by mouth 2 times daily. 12/04/2008 fluticasone (FLOVENT) 110 mcg/Actuation inhaler Inhale 2 Puffs as directed every 12 hours. 12/04/2008 levalbuterol (XOPENEX) 0.63 mg/3 mL nebulization Take 0.63 mg by nebulization every 4 hours as needed for Wheezing. 12/04/2008 montelukast (SINGULAIR) 5 mg chewable tablet Take 5 mg by mouth at bedtime. 12/04/2008 SODIUM FLUORIDE ORAL Take 1 Tab by mouth. 2008 cefdinir (OMNICEF) 300 mg capsule Take 250 mg by mouth 2 times daily. 250 mg/ml, takes 1/2 tsp 12/04/2008 Sodium Fluoride (ACT FLUORIDE) 0.05 % Soln Place 1 Units onto teeth daily. 12/04/2008 amoxicillin-clavulanat e (AUGMENTIN) 400-57 mg/5 mL suspension Take 400 mg by mouth 2 times daily. 12/04/2008 documented as of this encounter Historical Medications * This list may reflect changes made after this encounter. amoxicillin-clavu lanate (AUGMENTIN) 400-57 mg/5 mL suspension Take 400 mg by mouth 2 times daily. 12/04/2008 added in this encounter Active and Recently Administered Medications Times are shown in EDT. Scheduled Medication Order 12/02/2008 12/03/200812/0412/04/2008 albuterol (PROVENTIL HFA, VENTOLIN HFA) inhaler 2 Puff (CANCELED) 2 Puff, inhalation, 3 TIMES DAILY, First dose on Wed11/26/08 at 2100, Until Discontinued, Routine 0820 (Given - Provider: Eddie Mcfarland)1400 (Given - Provider: Eddie Mcfarland)2156 (Given - Provider: Kiley Blanco RT) 1115 (Given - Provider: Whit Pressley)1400 (Due)2100 (Due) 0900 (Due)1400 (Due)2100 (Due) cefTRIAXone (ROCEPHIN) 630 mg in sodium chloride 0.9 % 50 mL IVPB (CANCELED) 630 mg, intravenous, Administer over 30 Minutes, EVERY 12 HOURS (2 times per day), First dose on Wed11/26/08 at 2100, Until Discontinued, Routine 0900 (Given - Provider: Gena Christensen RN) cefTRIAXone (ROCEPHIN) 630 mg in sodium chloride 0.9 % 50 mL IVPB (COMPLETED) 630 mg, intravenous, Administer over 30 Minutes, EVERY 12 HOURS (2 times per day), 1 dose, First dose (after last modification) on Wed12/02/08 at 2100, Routine 2100 (Given - Provider: Dione Perez, RALÚ) dornase alpha (PULMOZYME) nebulizer solution 2.5 mg (CANCELED) 2.5 mg, inhalation, DAILY, First dose (after last modification) on Wed11/27/08 at 0900, Until Discontinued, Routine 0850 (Given - Provider: Eddie Mcfarland) 1115 (Given - Provider: Whit Pressley) 0900 (Due) lactobacillus acidophilus & bulgar (LACTINEX) 1 million cell chewable tablet 1 Tab 1 Tablet, oral, 3 TIMES DAILY WITH MEALS, First dose on Wed11/29/08 at 1215, Until Discontinued, Routine 0800 (Given - Provider: Gena Christensen RN)1200 (Given - Provider: Gena Christensen RN)1700 (Given - Provider: Dione Perez RN) 0800 (Due)1200 (Due)1700 (Due) 0800 (Due)1200 (Due)1700 (Due) sodium chloride 3 % solution for nebulization 4 mL 4 mL, nebulization, 2 TIMES DAILY, First dose on [place] 11/29/08 at 1215, Until Discontinued, Routine 0825 (Given - Provider: Eddie Mcfarland)2207 (Given - Provider: Kiley Blanco RT) 1115 (Given - Provider: Whit Pressley)2100 (Due) 0900 (Due)2100 (Due) documented in this encounter Orders Medications Ordered That Janes ht Not Have Been Administered Count Last Ordered Date First Ordered Date cefTRIAXone 1,250 mg IV syringe 1 9 acetaminophen (TYLENOL) solu tion 168.1-252 mg 1 11/26/2008 atropine 0.1 mg/mL 10 mL syringe 0.5 mg 1 0 11/26/2008 dornase alpha (PULMOZYME) ne bulizer solution 2.5 mg 1 11/26/2008 ibuprofen (ADVIL;MOTRIN) suspension 168 mg 1 11/26/2008 naloxone (NARCAN) injection 0.2 mg 1 2008 sodium chloride 0.9 % (NS) infusion 1 11/26 sucrose 24% (TOOTSWEET) solution 1 11/27/19 09 Diet Count Last Ordered Date First Orde red Date DIET REGULAR 1 11/27/2008 Nursing Count Last Ordered Date First Orde red Date PULSE OXIMETRY 1 11/29/2008 ASSESS PAIN USING NUMERIC PAIN SCALE 11/14 DISCHARGE INSTRUCTIONS 1 11/27/2008 MONITOR AIRWAY 1 11/27/2008 OXYGEN THERAPY 1 11/27/2008 HEIGHT AND WEIGHT 11/26/2008 INSERT SALINE LOCK 11/26/2008 Consult Count Last Ordered Date First Orde red Date CONSULT NUTRITION 1 11/27/2008 CONSULT CORPORATE SALES TRAINER 1 11/26/2008 Admission Count Last Ordered Date First Orde red Date NOTIFY PPS OF DISCHARGE COMPLETE 1 12/05/19 09 NOTIFY PPS PATIENT TRANSFERRED OUT OF PACU 11/27/2008 ADMIT TO INPATIENT 1 11/26/2008 ADMITTING CONDITION 1 11/26/2008 PPS NOTIFICATION OF PATIENT ARRIVAL ON UNIT 1 11/26/2008 TEACHING SERVICE 1 11/26/2008 documented in this encounter Care Teams Media Law Faculty Member Relationship Specialty Start Date End Date Virgie Jack MD PCP - General 10/12/08 04/09/09 documented as of this encounter
--- OUTSIDE RECORDS SUMMARY | 2024-03-30 21:52 | XMS_ITS | Encounter Summary ---
Author Organization [facility] Address [address] [place] [address] Care Team Providers Care Center Consultant Name Role Phone Trell Pittman MD Primary Care Provider [phone] Gen Jack MD Primary Care Provider Trell Domingo MD Primary Care Provider [phone] Gen Jack MD Primary Care Provider Jamaal shi Encounter Details Date Type Department Care Team (Late st Contact Info) Description 06/25/2006 Before PRISM Converted Visit (Maple) [facility] - Maple conversion [address], [place] [phone] Felix Spears MD 111 [facility], [facility] [address] [place] [address] Social History Tobacco Use Types Packs/Day Years Used Date Smoking Tobacco: Never Assessed Comments Unknown Sex and Gender Information Value Date Recorded Sex Assigned at Not on file Legal Sex Female 18:39 EST Gender Identity Not on file Sexual Orientation Not on file documented as of this encounter Progress Notes * Felix Spears MD - 05/23/2009 1630 EST DIVISION OF OTOLARYNGOLOGY PROGRESS/FOLLOWUP NOTE - 06/25/2006 S:patient has had five ear infections since her last visit here in April, all in the right ear, with the tube not functioning. She is doing well otherwise. O: Healthy alert cooperative female in no distress. The left tube is in place and functioning. The right ear is blocked. There is fluid in the right middle ear space. Nasal exam reveals midline septum, congested turbinates and a clear rhinitis. Heart regular rate and rhythm, lungs clear in all lungfields, abdomen soft and benign, active bowel sounds. Oral cavity reveals two plus tonsils. A: Recurrent otitis media, chronic adenoiditis. P: Ventilating tube reinsertion. Signed by Felix Spears MD 06/28/2006 08:55 Gisella Paiz MD Felix Spears MD - Luz Marina Spears MD P - kmb Job ID: [id number] Document ID: [id number] cc: Gen Jack DDS * Felix Spears MD - 05/23/2009 1630 EST DIVISION OF OTOLARYNGOLOGY June 25, 2006 Gen Jack MD [address] [place] [address] 06/25/2006 Dear Gen: Rosario was reevaluated on June 25, 2006. She has fluid in that right middle ear space with a nonfunctioning tube, and I have recommended reinsertion tubes and adenoidectomy. Sincerely, Signed by Felix Spears MD 06/28/2006 08:55 Gisella Paiz MD Felix Spears MD - Luz Marina Spears MD P - wlp Job ID: [id number] Document ID: [id number] cc: Gen Jack MD documented in this encounter Plan of Treatment Upcoming Encounters Date Type Department Care Team (Late st Contact Info) Description 04/24/2024 15:30 EST Telemedicine [facility] Pediatric Pulmonary - Main [address] [address] Lucy Rodgers MD [address] [place] [phone] documented as of this encounter Visit Diagnoses Not on filedocumented in this encounter Care Teams Center Consultant Relationship Specialty Start Date End Date Trell Pittman MD [address] [place] [address] PCP - General 04/10/09 Gen Jack MD PCP - General 10/12/08 04/09/09 Trell Pittman MD [address] [place] [address] PCP - General 10/05/08 10/11/08 Gen Jack MD PCP - General 09/06/08 10/04/08 documented as of this encounter
--- OUTSIDE RECORDS SUMMARY | 2024-03-30 21:52 | XMS_ITS | Encounter Summary ---
Author Organization [facility] Address [address] [place] [address] Care Team Providers Care Pharmacy Grad Intern Name Role Phone Gen Jack MD Primary Care Provider Jamaal shi Encounter Details Date Type Department Care Team (Late st Contact Info) Description 11/26/2008 Orders Only [facility] [address] [id number] James Franklin MD [address] [place] [phone] Social History Tobacco Use Types Packs/Day [...] [facility] - [address] [phone] Lucy Rodgers MD [address] [place] [phone] documented as of this encounter Procedures Procedure Name Priority Date/Time Associated Diagnosis Comments IR PEDI PICC 11/26/2008 14:00 EDT documented in this encounter Results * IR PEDI PICC (11/26/2008 14:00 EDT) Anatomical Region Laterality Modality Other 11/26/2008 14:0 0 EDT 11/27/2008 10:55 EDT Narrative 11/27/2008 10:55 EDT Technique and Findings: General anesthesia was provided by the anesthesia service. The patient was prepped and draped in sterile fashion. 1% lidocaine was used for local analgesia. Sonographic guidance was used to gain access to the right basilic vein with a micropuncture needle. A guidewire was advanced into the vein under fluoroscopic guidance to the level of the SVC. The tract was dilated and a double-lumen PICC was placed through a peel-away sheath and the tip positioned at the SVC/RA junction using fluoroscopic guidance. The catheter was secured in place, flushed, and a sterile bandage was applied. The patient tolerated the procedure well without complication. Ultrasound images demonstrate the vein to be patent and were recorded. Impression: Successful, uncomplicated placement of a PICC (PowerPICC) as described above using sonographic and fluoroscopic guidance. Procedure Note 11/27/2008 Technique and Findings: General anesthesia was provided by the anesthesia service. The patient was prepped and draped in sterile fashion. 1% lidocaine was used for local analgesia. Sonographic guidance was used to gain access to the right basilic vein with a micropuncture needle. A guidewire was advanced into the vein under fluoroscopic guidance to the level of the SVC. The tract was dilated and a double-lumen PICC was placed through a peel-away sheath and the tip positioned at the SVC/RA junction using fluoroscopic guidance. The catheter was secured in place, flushed, and a sterile bandage was applied. The patient tolerated the procedure well without complication. Ultrasound images demonstrate the vein to be patent and were recorded. Impression: Successful, uncomplicated placement of a PICC (PowerPICC) as described above using sonographic and fluoroscopic guidance. James Franklin MD IMG IR ORDERABLES Final Result documented in this encounter Visit Diagnoses Not on filedocumented in this encounter Care Teams Pharmacy Grad Intern Relationship Specialty Start Date End Date Gen Jack MD PCP - General 10/12/08 04/09/09 documented as of this encounter
--- OUTSIDE RECORDS SUMMARY | 2024-03-30 21:52 | XMS_ITS | Encounter Summary ---
Author Organization [facility] Address [address] [place] [address] Care Team Providers Care Sole Layer Hand Name Role Phone Unavailable Primary Care Provider Unavailabl e Encounter Details Date Type Department Care Team (Late st Contact Info) Description 10/24/2007 14:57 EDT Hospital Encounter [facility] [address] [place] [address] Felix Spears MD [address] [place] [address], [address] [place] [address] Social History Tobacco Use Types [...] 15:30 EST Telemedicine [facility] Pediatric Pulmonary - [address] [address] Lucy Rodgers MD [address] [place] [phone] documented as of this encounter Visit Diagnoses Not on filedocumented in this encounter
--- OUTSIDE RECORDS SUMMARY | 2024-03-30 21:52 | XMS_ITS | Encounter Summary ---
Author Organization [facility] Address [address] [place] [address] Care Team Providers Care Presser First Name Role Phone Trell Pittman MD Primary Care Provider [phone] Gen Jack MD Primary Care Provider Trell Domingo MD Primary Care Provider [phone] Gen Jack MD Primary Care Provider Jamaal shi Encounter Details Date Type Department Care Team (Late st Contact Info) Description 04/27/2006 Before PRISM Converted Visit (Maple) [facility] - Maple conversion [address] [place], [place] [phone] Felix Spears MD 111 [facility], [facility] 4 [place] [address] Social History Tobacco Use Types Packs/Day Years Used Date Smoking Tobacco: Never Assessed Comments Unknown Sex and Gender Information Value Date Recorded Sex Assigned at Not on file Legal Sex Female 18:39 EST Gender Identity Not on file Sexual Orientation Not on file documented as of this encounter Progress Notes * Felix Spears MD - 05/23/2009 0448 EST DIVISION OF OTOLARYNGOLOGY April 28, 2006 Gen Jack MD [address] [place] [address] DOS 04/27/2006 Dear Gen: Thanks very much for Destanys referral. She was seen in my office on April 27, 2006. Examinationat that time revealed high volume and flat tympanograms bilaterally. It looks like, to me, the lefttube may be blocked with dried secretions in the lumen at the outside. The patient did have some localization troubles, and the remainder of her exam was okay. I think with her history, right now I would try her on alow-dose Septra to see if we can prevent more infections. If she breaks through on that, well make some alternative plans, possibly replacing the tubes or just taking them out to let the ears rest a bit. Thanks again for the consult. Sincerely, Signed by Felix Spears MD 04/28/2006 12:52 Gisella Paiz MD Felix Spears MD - Luz Marina Spears MD A - wlp Job ID: [id number] Document ID: [id number] cc: Gen Jack MD documented in this encounter Plan of Treatment Upcoming Encounters Date Type Department Care Team (Late st Contact Info) Description 04/24/2024 15:30 EST Telemedicine [facility] Pediatric Pulmonary - [address] [phone] Lucy Rodgers MD [address] [place] [phone] documented as of this encounter Visit Diagnoses Not on filedocumented in this encounter Care Teams Presser First Relationship Specialty Start Date End Date Trell Pittman MD [address] [place] [address] [place] [address] PCP - General 04/10/09 Gen Jack MD PCP - General 10/12/08 04/09/09 Trell Pittman MD [address] [place] [address] [address] [place] [address] PCP - General 10/05/08 10/11/08 Gen Jack MD PCP - General 09/06/08 10/04/08 documented as of this encounter
--- OUTSIDE RECORDS SUMMARY | 2024-03-30 21:52 | XMS_ITS | Encounter Summary ---
Author Organization [facility] Address [address] [place] [address] Care Team Providers Care Manager Universal Name Role Phone Unavailable Primary Care Provider Unavailabl e Encounter Details Date Type Department Care Team (Late st Contact Info) Description 04/27/2006 10:06 EST Hospital Encounter [facility] [address] [place] [address] Felix Spears MD [address] [place] [address], [address] [place] [address] Social History Tobacco Use Types [...] 15:30 EST Telemedicine [facility] Pediatric Pulmonary - [address] [address] Lucy Rodgers MD [address] [place] [phone] documented as of this encounter Visit Diagnoses Not on filedocumented in this encounter
--- OUTSIDE RECORDS SUMMARY | 2024-03-30 21:52 | XMS_ITS | Encounter Summary ---
Author Organization [facility] Address [address] [place] [address] Care Team Providers Care Transformer Builder Name Role Phone Trell Pittman MD Primary Care Provider [phone] Gen Jack MD Primary Care Provider Trell Domingo MD Primary Care Provider [phone] [phone] Gen Jack MD Primary Care Provider Jamaal shi Encounter Details Date Type Department Care Team (Late st Contact Info) Description 07/12/2008 Before PRISM Converted Visit (Maple) [facility] - Maple conversion [address] [place], [place] [phone] Felix Spears MD 111 [facility], [facility] 4 [place] [address] Social History Tobacco Use Types Packs/Day Years Used Date Smoking Tobacco: Never Assessed Comments Unknown Sex and Gender Information Value Date Recorded Sex Assigned at Not on file Legal Sex Female 18:39 EST Gender Identity Not on file Sexual Orientation Not on file documented as of this encounter Progress Notes * Felix Spears MD - 06/18/2009 6054 EST DIVISION OF OTOLARYNGOLOGY July 13, 2008 Tre[place] [address] DOS: 07/12/[address] Pittman: Rosario was seen back in my office on July 12, 2008. She has persistent fluid in the right middle ear space with three ear infections as you know, and I have recommended reinsertion of her tubes. Sincerely, Signed by Felix Spears MD 07/16/2008 14:16 Felix Spears MD - Felix Spears MD - [facility] Job ID: [id number] Doc ID: [id number] cc: Trell Pittman MD * Felix Spears MD - 06/18/2009 2258 EST DIVISION OF OTOLARYNGOLOGY PROGRESS/FOLLOWUP NOTE - 07/12/2008 CHIEF COMPLAINT Recurrent otitis media. SUBJECTIVE The patient has had three ear infections since her last visit here. Doing pretty well otherwise. She just started on some Prevacid for her reflux. She is under good control with her asthma. OBJECTIVE Healthy, alert, cooperative female in no distress. There is a functioning tube on the left side today without infection or drainage. The right ear has some fluid in the middle-ear space. Oral cavity is normal. Palpation of the neck reveals bilateral jugulodigastric adenopathy. Nasal exam reveals a midline septum, congested turbinates, and a purulent rhinitis. Heart: Regular rate and rhythm. Abdomen is soft and benign with active bowel sounds. ASSESSMENT Recurrent otitis media. PLAN Ventilating-tube reinsertion. History and physical were done and consent obtained. Signed by Felix Spears MD 07/16/2008 14:16 Felix Spears MD - Felix Spears MD - P Job ID: [id number] Doc ID: [id number] cc: documented in this encounter Plan of Treatment Upcoming Encounters Date Type Department Care Team (Late st Contact Info) Description 04/24/2024 15:30 EST Telemedicine [facility] Pediatric Pulmonary - [address] [phone] Lucy Rodgers MD [address] [place] [phone] documented as of this encounter Visit Diagnoses Not on filedocumented in this encounter Care Teams Transformer Builder Relationship Specialty Start Date End Date Trell Pittman MD [address] [place] [address] PCP - General 04/10/09 Gen Jack MD PCP - General 10/12/08 04/09/09 Trell Pittman MD [address] [place] [address] PCP - General 10/05/08 10/11/08 Gen Jack MD PCP - General 09/06/08 10/04/08 documented as of this encounter
--- OUTSIDE RECORDS SUMMARY | 2024-03-30 21:52 | XMS_ITS | Encounter Summary ---
Author Organization [facility] Address [address] [place] [address] Care Team Providers Care Honey Liquefier Name Role Phone Trell Pittman MD Primary Care Provider [phone] Gen Jack MD Primary Care Provider Trell Domingo MD Primary Care Provider [phone] [phone] Gen Jack MD Primary Care Provider Jamaal shi Encounter Details Date Type Department Care Team (Late st Contact Info) Description 09/11/2008 Before PRISM Converted Visit (Maple) [facility] - Maple conversion [address], [place] [phone] Felix Spears MD 111 [facility], [facility] 4 [place] [address] Social History Tobacco Use Types Packs/Day Years Used Date Smoking Tobacco: Never Assessed Comments Unknown Sex and Gender Information Value Date Recorded Sex Assigned at Not on file Legal Sex Female 18:39 EST Gender Identity Not on file Sexual Orientation Not on file documented as of this encounter Progress Notes * Felix Spears MD - 06/19/2009 1241 EST DIVISION OF OTOLARYNGOLOGY PROGRESS/FOLLOWUP NOTE - 09/11/2008 CHIEF COMPLAINT Recurrent otitis media, serous otitis media. SUBJECTIVE The patient had no troubles after her surgery, no ear pain, no ear drainage. OBJECTIVE Healthy, alert, cooperative female in no distress. Both tubes are in place without infection or drainage. The ear canals are normal, middle-ear spaces are clear. Audiogram in April was normal. ASSESSMENT Normal tube check, normal hearing. PLAN Follow up in six months. Signed by Felix Spears MD 09/12/2008 13:22 Felix Spears MD - Felix Spears MD - [facility] Job ID: [id number] Doc ID: [id number] cc: Gen Jack MD documented in this encounter Plan of Treatment Upcoming Encounters Date Type Department Care Team (Late st Contact Info) Description 04/24/2024 15:30 EST Telemedicine [facility] Pediatric Pulmonary - [address] [address] Lucy Rodgers MD [address] [place] [phone] documented as of this encounter Visit Diagnoses Not on filedocumented in this encounter Care Teams Honey Liquefier Relationship Specialty Start Date End Date Trell Pittman MD [address] [place] [address] PCP - General 04/10/09 Gen Jack MD PCP - General 10/12/08 04/09/09 Trell Pittman MD [address] [place] [address] PCP - General 10/05/08 10/11/08 Gen Jack MD PCP - General 09/06/08 10/04/08 documented as of this encounter
--- OUTSIDE RECORDS SUMMARY | 2024-03-30 21:52 | XMS_ITS | Encounter Summary ---
Author Organization [facility] Address [address] [place] [address] Care Team Providers Care Thermodynamics Professor Name Role Phone Unavailable Primary Care Provider Unavailabl e Encounter Details Date Type Department Care Team (Late st Contact Info) Description 12/14/2006 14:18 EDT Hospital Encounter [facility] [address] [place] [address] Melody Lyon MD PhD [address] [place] [address] Social History Tobacco Use Types [...] 15:30 EST Telemedicine [facility] Pediatric Pulmonary - [facility] [address] [place], [place] [address] Lucy Rodgers MD [address] [place] [phone] documented as of this encounter Procedures Procedure Name Priority Date/Time Associated Diagnosis Comments RAST MILK Routine 12/14/2006 14:35 EDT documented in this encounter Results * RAST MILK (12/14/2006 14:35 EDT) RAST Milk 0.97Unit: kU/L(Note) Class 2 (Positive 0.71-3.50) ? Test Performed by: ? [facility] Dpt of Lab Med and Pathology ? [address] [place] [address] ? Power Machine Operator: Oleg R. Cockerill, III, M.D. ? FARSHAD DOMINGUEZ 12/14/2006 14:3 5 EDT 12/14/2006 14:36 EDT us Melody Lyon MD PhD IMMUNOLOGY AND SEROLOGY ORDERABLES Final Result FARSHAD DOMINGUEZ [address] [place] [address] documented in this encounter Visit Diagnoses Not on filedocumented in this encounter
--- OUTSIDE RECORDS SUMMARY | 2024-03-30 21:52 | XMS_ITS | Encounter Summary ---
Author Organization [facility] Address [address] [place] [address] Care Team Providers Care Sleeve Wheel Maker Name Role Phone Gen Jack MD Primary Care Provider Trell Domingo MD Primary Care Provider [phone] Gen Jack MD Primary Care Provider Jamaal shi Encounter Details Date Type Department Care Team (Late st Contact Info) Description 10/26/2006 Before PRISM Converted Visit (Maple[facility] - Maple conversion [address] [place], [place] [address] Felix Spears MD 111 [facility], Level [address] [place] [phone] Social History Tobacco Use Types Packs/Day Years Used Date Smoking Tobacco: Never Assessed Comments Unknown Sex and Gender Information Value Date Recorded Sex Assigned at Not on file Legal Sex Female 18:39 EST Gender Identity Not on file Sexual Orientation Not on file documented as of this encounter Progress Notes * Felix Spears MD - 03/20/2009 0539 EST DIVISION OF OTOLARYNGOLOGY October 27, 2006 [place] [address] DOS: 10/26/06 Dear Gen: Rosario was reevaluated on October 26, 2006. Her tubes are working but she still is not responding as well as she should on her audiogram. We will get her back in three months to monitor that. Sincerely, Signed by Felix Spears MD 11/03/2006 16:28 Gisella Paiz MD Felix Spears MD - Felix Spears MD - kmb Job ID: [id number] Doc ID: [id number] cc: Gen Jack MD Job ID: [id number] Doc ID: [id number] cc: Gen Jack MD * Felix Spears MD - 03/20/2009 2329 EST DIVISION OF OTOLARYNGOLOGY PROGRESS/FOLLOWUP NOTE - 10/26/2006 SUBJECTIVE The patient had no troubles after surgery, no ear infection, no ear drainage, no ear pain. Mom joe is doing some snoring at nighttime which is new for her. OBEJCTIVE Healthy alert cooperative female in no distress. Both tubes are in place. There is no infection or drainage. Tympanograms high volume and flat bilaterally. Audiogram today shows still some decreased response. The patient was not particularly interested. ASSESSMENT Recurrent otitis media, serous otitis media, normal tube check with still abnormal hearing. PLAN Followup three months for another audiogram. Signed by Felix Spears MD 11/03/2006 16:28 Gisella Paiz MD Felix Spears MD - Felix Spears MD - [facility] Job ID: [id number] Doc ID: [id number] cc: Gen Jack MD Job ID: [id number] Doc ID: [id number] cc: Gen Jack MD documented in this encounter Plan of Treatment Upcoming Encounters Date Type Department Care Team (Late st Contact Info) Description 04/24/2024 15:30 EST Telemedicine [facility] Pediatric Pulmonary - Main [address] [address] Lucy Rodgers MD [address] [place] [phone] documented as of this encounter Visit Diagnoses Not on filedocumented in this encounter Care Teams Sleeve Wheel Maker Relationship Specialty Start Date End Date Gen Jack MD PCP - General 10/12/08 04/09/09 Trell Pittman MD [address] [place] [address] [place] [address] PCP - General 10/05/08 10/11/08 Gen Jack MD PCP - General 09/06/08 10/04/08 documented as of this encounter
--- OUTSIDE RECORDS SUMMARY | 2024-03-30 21:52 | XMS_ITS | Encounter Summary ---
Author Organization [facility] Address [address] [place] [address] Care Team Providers Care Fly Finisher Name Role Phone Unavailable Primary Care Provider Unavailabl e Encounter Details Date Type Department Care Team (Late st Contact Info) Description 06/25/2006 10:25 EST Hospital Encounter [facility] [address] [place] [address] Felix Spears MD [address] [place] [address], [address] [place] [address] Social History Tobacco Use Types [...] EST Telemedicine [facility] Pediatric Pulmonary - [address] [address] Lucy Rodgers MD [address] [place] [phone] documented as of this encounter Visit Diagnoses Not on filedocumented in this encounter
--- OUTSIDE RECORDS SUMMARY | 2024-03-30 21:52 | XMS_ITS | Encounter Summary ---
Author Organization [facility] Address [address] [place] [address] Care Team Providers Care Shirt Line Operator Name Role Phone Gen Jack MD Primary Care Provider Trell Domingo MD Primary Care Provider [phone] Gen Jack MD Primary Care Provider Jamaal shi Encounter Details Date Type Department Care Team (Late st Contact Info) Description 04/24/2008 Before PRISM Converted Visit (Maple) [facility] - Maple conversion [address] [place] [address] Felix Spears MD [address] [facility], [address] [place] [address] Social History Tobacco Use Types Packs/Day Years Used Date Smoking Tobacco: Never Assessed Comments Unknown Sex and Gender Information Value Date Recorded Sex Assigned at Not on file Legal Sex Female 18:39 EST Gender Identity Not on file Sexual Orientation Not on file documented as of this encounter Progress Notes * Felix Spears MD - 12/08/2008 0727 EDT DIVISION OF OTOLARYNGOLOGY PROGRESS/FOLLOWUP NOTE - 04/24/2008 CHIEF COMPLAINT Recurrent otitis media, serous otitis media. SUBJECTIVE The patient has had no troubles since her last visit. No hearing concerns. Good health otherwise. He has had purulent rhinorrhea and some lung infections. OBJECTIVE Healthy, alert, cooperative female in no distress. The right drum looked normal and stiff on tympanogram. The left tube is in place and functioning. Has a high volume and flat tympanogram. Audiogram is normal today, with testing done by Janette Menon. Oral cavity is normal. Palpation of the neck reveals no adenopathy. Nasal exam is normal today with a midline septum and normal turbinates and crusted bilaterally with a purulent rhinitis. ASSESSMENT Upper-respiratory infection, acute sinusitis. Serous otitis media, recurrent otitis media. PLAN Follow up in six months. Signed by Felix Spears MD 05/04/2008 08:22 Felix Spears MD - Felix Spears MD - [facility] Job ID: [id number] Doc ID: [id number] Enclosure (audio) cc: Gen Jack MD* documented in this encounter Plan of Treatment Upcoming Encounters Date Type Department Care Team (Late st Contact Info) Description 04/24/2024 15:30 EST Telemedicine [facility] Pediatric Pulmonary - [address] [address] Lucy Rodgers MD [address] [place] [phone] documented as of this encounter Visit Diagnoses Not on filedocumented in this encounter Care Teams Shirt Line Operator Relationship Specialty Start Date End Date Gen Jack MD PCP - General 10/12/08 04/09/09 Trell Pittman MD [address] [place] [address] [place] [address] PCP - General 10/05/08 10/11/08 Gen Jack MD PCP - General 09/06/08 10/04/08 documented as of this encounter
--- OUTSIDE RECORDS SUMMARY | 2024-03-30 21:52 | XMS_ITS | Encounter Summary ---
Author Organization [facility] Address [address] [place] [address] Care Team Providers Care Fur Finisher Tailor Name Role Phone Trell Pittman MD Primary Care Provider [phone] Gen Jack MD Primary Care Provider Trell Domingo MD Primary Care Provider [phone] Gen Jack MD Primary Care Provider Jamaal shi Encounter Details Date Type Department Care Team (Late st Contact Info) Description 08/24/2008 Before PRISM Converted Visit (Maple) [facility] Perioperative Services- [address] [address] Felix Spears MD 111 [facility], [address] [place] [address] Discharge Disposition: Home or Self [...] or Self Care documented in this encounter OR Notes * OR Surgeon - Felix Spears MD - 06/19/2009 1018 EST PROCEDURE REPORT PT TYPE: OPPROC SERVICE DATE: 08/24/2008 SURGEON: Felix Spears MD DIRECTOR INDEX: PREOPERATIVE DIAGNOSIS Recurrent otitis media, serous otitis media. POSTOPERATIVE DIAGNOSIS Recurrent otitis media, serous otitis media. PROCEDURE Bilateral tympanotomies and insertion of ventilatory tubes. ANESTHESIA General. INDICATIONS This is an otherwise healthy patient with a history of recurrent ear infections unresponsive to medical therapy and chronic middle ear fluid. NARRATIVE The patient was brought to the operating room, and after an adequate level of general anesthesia was obtained, a myringotomy was made in the anterior inferior quadrant of the right ear drum. Thin serous fluid was suctioned on that side, and a José Manuel tube placed without complication. An old tube wasremoved from the left ear. A myringotomy was made and a José Manuel tube placed also after some thin fluid from the left middle ear space was suctioned. The patient tolerated the procedure well and sent to the recovery room in stable condition. Unless otherwise noted, there were no complications, no blood loss, cultures obtained, specimens removed, or drains retained. ESTIMATED BLOOD LOSS None. FLUIDS None. SPECIMENS COMPLICATIONS None. Signed by Felix Spears MD 08/29/2008 09:28 Felix Spears MD - Felix Spears MD P - MT Job ID: [id number] Document ID: [id number] cc: MD Gen Rosas MD documented in this encounter Plan of Treatment Upcoming Encounters Date Type Department Care Team (Late st Contact Info) Description 04/24/2024 15:30 EST Telemedicine [facility] Pediatric Pulmonary - [address] [address] Lucy Rodgers MD [address] [place] [phone] documented as of this encounter Visit Diagnoses Not on filedocumented in this encounter Care Teams Fur Finisher Tailor Relationship Specialty Start Date End Date [place] [address] PCP - General 04/10/09 Gen Jack MD PCP - General 10/12/08 04/09/09 Trell Pittman MD [address] [place] [address] PCP - General 10/05/08 10/11/08 Gen Jack MD PCP - General 09/06/08 10/04/08 documented as of this encounter
--- OUTSIDE RECORDS SUMMARY | 2024-03-30 21:52 | XMS_ITS | Encounter Summary ---
Author Organization [facility] Address [address] [place] [address] Care Team Providers Care Brush Material Preparer Name Role Phone Unavailable Primary Care Provider Unavailabl e Encounter Details Date Type Department Care Team (Late st Contact Info) Description 10/26/2006 13:34 EDT Hospital Encounter [address] [id number] Felix Spears MD [address] [place] [address], [address] [place] [address] Discharge Disposition: Auto Discharge Social [...] Contact Info) Description 04/24/2024 15:30 EST [facility]medicine [facility] - [address] [phone] Lucy Rodgers MD [address] [place] [phone] documented as of this encounter Visit Diagnoses Not on filedocumented in this encounter
--- OUTSIDE RECORDS SUMMARY | 2024-03-30 21:52 | XMS_ITS | Encounter Summary ---
Author Organization [facility] Address [address] [place] [address] Care Team Providers Care Senior Escrow Officer Name Role Phone Gen Jack MD Primary Care Provider Jamaal shi Encounter Details Date Type Department Care Team (Late st Contact Info) Description 01/08/2009 8:47 EDT - 01/08/2009 23:59 EDT Hospital Encounter [facility] [address] [place] [address] James Franklin MD [address] [place] [phone] Discharge Disposition: Home or Self Care Social [...] Code Departure Means Destination Home or Self Fdc documented in this encounter Plan of Treatment Upcoming Encounters Date Type Department Care Team (Late st Contact Info) Description 04/24/2024 15:30 EST Telemedicine [facility] Pediatric Pulmonary - [facility] [address] [place], [place] [phone] Lucy Rodgers MD [address] [place] [address] documented as of this encounter Procedures Procedure Name Priority Date/Time Associated Diagnosis Comments SUSCEPTIBILITY Routine 02/04/2009 15:20 EDT documented in this encounter Results * SUSCEPTIBILITY (02/04/2009 15:20 EDT) Specimen Description OtherNOSE SUBMITTED ON CONSUELO PLATE [facility] Result HAEMOPHILUS INFLUENZAEOrganism identification performed by client. [facility] Report Status Final02/15/2009 [facility] 02/04/2009 15:2 0 EDT 02/06/2009 17:15 EDT Narrative Organism Antibiotic Method Susceptibility Haemophilus influenzae Trimethoprim-Sulfamethoxazole E TEST 0.016Susceptible us Trell Pittman MD MICROBIOLOGY - GENERAL OR DERABLES Final Result [facility] [address] [place] [address] documented in this encounter Visit Diagnoses Not on filedocumented in this encounter Care Teams Senior Escrow Officer Relationship Specialty Start Date End Date Gen Jack MD PCP - General 10/12/08 04/09/09 documented as of this encounter
--- OUTSIDE RECORDS SUMMARY | 2024-03-30 21:52 | XMS_ITS | Encounter Summary ---
Author Organization [facility] Address [address] [place] [address] Care Team Providers Care Environmental Field Professional Name Role Phone Gen Jack MD Primary Care Provider Trell Domingo MD Primary Care Provider [phone] Gen Jack MD Primary Care Provider Jamaal shi Encounter Details Date Type Department Care Team (Late st Contact Info) Description 02/11/2007 Before PRISM Converted Visit (Maple) [facility] - Maple conversion [address] [place] [address] Felix Spears MD 111 [facility], [address] [place] [phone] Social History Tobacco Use Types Packs/Day Years Used Date Smoking Tobacco: Never Assessed Comments Unknown Sex and Gender Information Value Date Recorded Sex Assigned at Not on file Legal Sex Female 18:39 EST Gender Identity Not on file Sexual Orientation Not on file documented as of this encounter Progress Notes * Felix Spears MD - 03/26/20091941 EST DIVISION OF OTOLARYNGOLOGY PROGRESS/FOLLOWUP NOTE - 02/11/2007 SUBJECTIVE Patient has had no troubles since her last visit. She is in good health otherwise. No ear pain and no ear drainage. Speech and language are developing normally. OBJECTIVE Healthy, alert, cooperative female in no distress. Both tubes are in place. There is no infection or drainage. Tympanograms show high volume and flat bilaterally. Audiogram is normal. SATs are at 15 decibels. ASSESSMENT Recurrent otitis media. Serous otitis media. Normal tube check. PLAN Follow up in six months. Signed by Felix Spears MD 02/16/2007 08:26 Felix Spears MD - Felix Spears MD - wlp Job ID: [id number] Doc ID: [id number] cc: - Felix Spears MD - [facility] Job ID: [id number] Doc ID: [id number] cc: documented in this encounter Plan of Treatment Upcoming Encounters Date Type Department Care Team (Late st Contact Info) Description 04/24/2024 15:30 EST Telemedicine [facility] Pediatric Pulmonary - [address] [phone] Lucy Rodgers MD [address] [place] [phone] documented as of this encounter Visit Diagnoses Not on filedocumented in this encounter Care Teams Environmental Field Professional Relationship Specialty Start Date End Date Gen Jack MD PCP - General 10/12/08 04/09/09 Trell Pittman MD [address] [place] [address] [place] [address] PCP - General 10/05/08 10/11/08 Gen Jack MD PCP - General 09/06/08 10/04/08 documented as of this encounter
--- OUTSIDE RECORDS SUMMARY | 2024-03-30 21:52 | XMS_ITS | Encounter Summary ---
Author Organization [facility] Address [address] [place] [address] Care Team Providers Care Wrap Turner Name Role Phone Gen Jack MD Primary Care Provider Trell Domingo MD Primary Care Provider [phone] Gen Jack MD Primary Care Provider Jamaal shi Encounter Details Date Type Department Care Team (Late st Contact Info) Description 10/24/2007 Before PRISM Converted Visit (Maple) [facility] - Maple conversion [address] [place] [address] Felix Spears MD 111 [facility], [address] [place] [address] Social History Tobacco Use Types Packs/Day Years Used Date Smoking Tobacco: Never Assessed Comments Unknown Sex and Gender Information Value Date Recorded Sex Assigned at Not on file Legal Sex Female 18:39 EST Gender Identity Not on file Sexual Orientation Not on file documented as of this encounter Progress Notes * Felix Spears MD - 02/15/2009 1012 EDT DIVISION OF OTOLARYNGOLOGY PROGRESS/FOLLOWUP NOTE - 10/24/2007 SUBJECTIVE Patients nose has been a little bit better. The nasal saline and irrigations did not seem to help at all. She complained of her ears this morning. Is doing well with speech and language, and is healthy otherwise. OBJECTIVE Healthy, alert, cooperative female in no distress. Both tubes are in place. There is no infection or drainage. The ear canals are normal. Middle-ear spaces are clear. Oral cavity is normal. Palpationof the neck reveals no adenopathy. Nasal exam reveals a midline septum and congested turbinates matt purulent rhinitis with crusting along the nares. ASSESSMENT Chronic rhinitis, serous otitis media, recurrent otitis media. PLAN Follow up in six months. Signed by Felix Spears MD 10/26/2007 15:00 Felix Spears MD - Felix Spears MD - P Job ID: [id number] Doc ID: [id number] cc: documented in this encounter Plan of Treatment Upcoming Encounters Date Type Department Care Team (Late st Contact Info) Description 04/24/2024 15:30 EST Telemedicine [facility] Pediatric Pulmonary - [address] [address] Lucy Rodgers MD [address] [place] [phone] documented as of this encounter Visit Diagnoses Not on filedocumented in this encounter Care Teams Wrap Turner Relationship Specialty Start Date End Date Gen Jack MD PCP - General 10/12/08 04/09/09 Trell Pittman MD [address] [place] [address] [place] [address] PCP - General 10/05/08 10/11/08 Gen Jack MD PCP - General 09/06/08 10/04/08 documented as of this encounter
--- OUTSIDE RECORDS SUMMARY | 2024-03-30 21:52 | XMS_ITS | Encounter Summary ---
Author Organization [facility] Address [address] [place] [address] Care Team Providers Care Mangle Tender Name Role Phone Gen Jack MD Primary Care Provider Jamaal shi Encounter Details Date Type Department Care Team (Late st Contact Info) Description 03/29/2009 Abstract [facility] ENT- [address] [phone] Felix Spears MD [address] [place] [address], [address] [place] [address] Simple or Unspecified Chronic Serous Otitis Media; Unspecified Chronic Suppurative Otitis Media Social History Tobacco Use Types Packs/Day Years [...] Contact Info) Description 04/24/2024 15:30 EST Telemedicine [facility] Pediatric Pulmonary - [address] [address] Lucy Rodgers MD [address] [place] [phone] documented as of this encounter Visit Diagnoses Diagnosis Simple or unspecified chronic serous otitis media Unspecified chronic suppurative otitis media documented in this encounter Care Teams Mangle Tender Relationship Specialty Start Date End Date Gen Jack MD PCP - General 10/12/08 04/09/09 documented as of this encounter
--- OUTSIDE RECORDS SUMMARY | 2024-03-30 21:52 | XMS_ITS | Encounter Summary ---
Author Organization [facility] Address [address] [place] [address] Care Team Providers Care Professional Application Designer Name Role Phone Gen Jack MD Primary Care Provider Trell Domingo MD Primary Care Provider [phone] Gen Jack MD Primary Care Provider Jamaal shi Encounter Details Date Type Department Care Team (Late st Contact Info) Description 05/03/2008 Before PRISM Converted Visit (Maple) [facility] - Maple conversion [address] [place], [place] [phone] James Franklin MD [address] [place] [phone] Social History Tobacco Use Types Packs/Day Years [...] EST Telemedicine [facility] Pediatric Pulmonary - [address] [place] [address] [place], [place] [phone] Lucy Rodgers MD [address] [place] [address] documented as of this encounter Visit Diagnoses * Evaluation - James Franklin MD - 12/06/2008 3888 EDT NEW PATIENT EVALUATION - 05/03/2008 Trell Pittman MD [address] [place] [address] [place] [address] Pittman: Thank you for sending this patient for consultation concerning her chronic respiratory symptoms. Chief Complaint: Chronic respiratory tract infections. History of Present Illness: Rosario is a 2-year-old girl with a long history of chronic cough, bothduring the day and at night. The cough is also provoked by activity or when the weather is more humid. In conjunction with the cough, she has had persistent, purulent rhinitis. She has a history of recurrent otitis media and is status posther second set of PE tubes being placed. Following PE tube placement and adenoidectomy, she has not had significant improvement in terms of her nasal congestion. She usually has raspy-sounding breathing that is no different during the day or at night. In general, she does not have wet burps, abdominal discomfort, nor does she complain of chest pain. Her parents notice that she does have a sour breath. Her voice is often hoarse as well. She does have a goodappetite and has 2 formed stools per day. She has received a fairly extensive evaluation by allergyand her wetlands technician. She has been placed on adequate doses of inhaled corticosteroids, leukotrienemodifiers, and bronchodilators, without any obvious improvement. There is some improvement of her symptomswhen she is treated with antibiotics, but the symptoms quickly recur. Prednisone has variableeffects on her, and she was recently not able to tolerate it. There was no clear resolution of her symptoms in a prompt manner. Nasal steroids did seem to provide some improvement of her congestion. She does not have a history of emesis, diarrhea, or fever with these illnesses. All other systems reviewed and negative. Past Medical History: History - Born at 42 weeks' gestation by vaginal delivery with a weight of 8 pounds 14 ounces. The course was uncomplicated. Medical History: As above. Status post PE tube placement in 02/2006 and 10/2006, status post adenoidectomy, 10/2006. She has never been diagnosed with pneumonia, although sinusitis hasbeen presumed on numerous occasions. She has not been hospitalized. 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 Her immunizations are up to date, including the pneumococcal vaccine, with good response. Environmental History: The home has carpeting throughout. [...] well as grandmother. Current Medications: Flovent 110 mcg 2 puffs b.i.d. with spacer, Singulair 4 mg daily, Xopenex 2 puffs as needed, fluoride daily. Physical Examination: Height 101.5 cm, weight 15.8 kg, respiratory rate 24, heart rate 101, blood pressure 95/46, oxygen saturation 99% to 100% onroom air. General Appearance: Alert, somewhat apprehensive child, in no acute distress. HEENT: Pupils equal, round, and reactive. Conjunctivae were pink.Tympanic membranes were sahni with PE tubes in place. Nares are with copious, crusted, purulent secretions. Oropharynx without erythema or exudate. Tonsils were 2+, enlarged. Some cobblestoning with postnasal drip was evident. Neck was supple with a few mildly enlarged submandibular nodes. Chest: Good air entry. Coarse, harsh transmitted sounds on both inspiration and expiration were heard. Her helio athing was audibly raspy. No crackles were appreciated. No wheezes, retractions, significant prolongation of the expiratory phase, or accessory muscle use was evident. S1 and S2 were heard with a regular rhythm. Extremities were without clubbing. Other Studies: We did not have x-rays available for review. Apparently, there was evidence of peribronchial thickening in the past with possibly some left lower lobe changes, including atelectasis. Asweat test was performed today, the results of which are pending. Assessment and Plan: Rosario is a 2-year-old girl with a history of chronic cough and chronic rhinitis whose symptoms have been unresponsive to asthma treatment. She has had only transient response to oral antibiotics in the past. I completely agree with her management to this point. She seems to have failed the treatments for allergy and asthma. Looking for underlying sinopulmonary disease is definitely indicated in this patient. Cystic fibrosis cannot be excluded, based on the history alone, and it is reasonable to proceed with a sweat test today. Primary ciliary dyskinesia is a less commoncause of chronic sinus and pulmonary disease and is also high in the differential. Other immunodeficiency testing may beindicated as well as silent gastric aspiration. Mechanical abnormalities of theairway, such as severe tracheobronchomalacia or stenosis or perhaps even an intraluminal lesion or vascular structure, may lead to chronic respiratory complaints but do not completely explain the nasal symptoms that have been described. In order to understand this patient better, we recommended a number of studies. The following plan was discussed: 1. We will contact the family of the results of the sweat test today. 2.will coordinate CT scan of the sinuses and chest with a flexible bronchoscopy within the next fewweeks. I will also perform a tracheal biopsy for primary ciliary dyskinesia at that point. Followupwill be dictated, based on the results of those studies. Sincerely, Signed by James Franklin MD 05/16/2008 15:15 James Franklin MD Division of Pediatric Pulmonology [phone] D: - James Franklin MD P - MIKE Job ID: [id number] Doc ID: [id number] cc: Trell Pittman MD documented in this encounter Care Teams Professional Application Designer Relationship Specialty Start Date End Date Gen Jack MD PCP - General 10/12/08 04/09/09 Trell Pittman MD [address] [place] [address] [place] [address] PCP - General 10/05/08 10/11/08 Gen Jack MD PCP - General 09/06/08 10/04/08 documented as of this encounter
--- OUTSIDE RECORDS SUMMARY | 2024-03-30 21:52 | XMS_ITS | Encounter Summary ---
Author Organization [facility] Address [address] [place] [address] Care Team Providers Care Marine Electronics Technician Name Role Phone Trell Pittman MD Primary Care Provider [phone] [phone] Encounter Details Date Type Department Care Team (Late st Contact Info) Description 04/10/2009 9:18 EST - 04/10/2009 13:20 EST Hospital Encounter [facility] Perioperative Services- [address] [address] Felix Spears MD [address] [place] [address], Level 4 [place] [address] Discharge Disposition: Home or Self [...] Taken Comments Blood Pressure - - Pulse 105 04/10/2009 1300 EST Temperature 36.6 ??C (97.9 ??F) 04/10/2009 1300 EST Respiratory Rate 20 04/10/2009 1300 EST Oxygen Saturation 99% 04/10/2009 1300 EST Inhaled Oxygen Concentration - - Weight 17.6 kg (38 lb 12.8 oz) 04/10/[address] Height - - Body Mass Index - - documented in this encounter Discharge Instructions * Discharge Instructions* Dyna Dobson MD - 04/10/2009 10:45 EST Bronchoscopy Post-Operative Instructions Post-operative Care: Most children are back to normal within 24-48 hours after surgery. Tylenol andMotrin may be given for pain. Follow Up: The patient should be seen in 2-3 weeks in the office. [phone] documented in this encounter Medications at Time of Discharge acetaminophen (TYLENOL) 160 mg/5 mL solution Take 5.5 mL by mouth every 4 hours as needed for Pain for 4 doses. 30 mL 0 04/10/2009 1 AZITHROMYCIN (ZITHROMAX ORAL) Take 1 tsp by mouth SEE ADMIN INSTRUCTIONS. Takes M-W-F 0 FLUTICASONE PROPIONATE (FLOVENT HFA INHL) Inhale 2 Puffs as directed 2 times daily. 1 ketotifen (ALAWAY) 0.025 % ophthalmic solution Place 1 Drop into both eyes 2 times daily. 0 lactobacillus acidophilus & bulgar (LACTINEX) 1 million cell Chew Take 1 Tab by mouth 3 times daily with meals. qs 14 days 0 12/03/2008 0 LANSOPRAZOLE (PREVACID ORAL) Take 15 mg by mouth 2 times daily. 1 LEVALBUTEROL HCL (XOPENEX INHL) Inhale 2 Puffs as directed 2 times daily. 1 Multivitamins with Minerals Tab Take 1 Tab by mouth three times a week. 6 POLYETHYLENE GLYCOL 3350 (MIRALAX ORAL) Take 1 Cap by mouth daily. Varies 1-1/2 caps per day 07/29/2010 2 sodium chloride 3 % Take 4 mL by nebulization 2 times daily. qs 1 month 1 12/03/2008 0 SULFAMETHOXAZOLE/ TRIMETHOPRIM (BACTRIM ORAL) Take 1 tsp by mouth daily. 0 documented as of this encounter Ordered Prescriptions Prescription Sig Dispense Quantity Refills Last Filled Start Date End Date acetaminophen (TYLENOL) 160 mg/5 mL solution Take 5.5 mL by mouth every 4 hours as needed for Pain for 4 doses. 30 mL 0 04/10/2009 08/22/2010 documented in this encounter Discharge Disposition Disposition Code Departure Means Destination Home or Self Care documented in this encounter Progress Notes * Lolita Cook RN - 04/10/2009 1316 EST Pt discharged to home in NAD with vss and no pain. Pt tolerating PO without n/v. Packing removed. Pt's nose not bleeding at time of discharge. Pt's mom signed discharged instruction and Dr. White out to see pt prior to discharge. * Lolita Cook RN - 04/10/2009 1255 EST Received report from Yesi for lunch relief. Pt denies pain. Pt sitting on mom's lap in NAD. Warm, dry and pink and no s/s of respiratory distress. MD will be by to remove nasal packing prior to discharge. documented in this encounter H&P Notes * Inpatient, Physician - 04/16/2009 1041 EST documented in this encounter Procedure Notes * James Franklin MD - 04/10/2009 0000 EST BRONCHOSCOPY SERVICE DATE: 04/10/2009 PROCEDURE: Flexible bronchoscopy with bronchoalveolar lavage. SURGEON: James Franklin MD PROGRESSIVE CARE UNIT REGISTERED NURSE: ANESTHESIA: Intravenous propofol was administered by Dr Chavez. PREPROCEDURE DIAGNOSIS: Recurrent pneumonia. POSTOPERATIVE DIAGNOSIS: Recurrent pneumonia. INDICATIONS: Rosario is a 3-year-old girl with a history of recurrent upper and lower respiratory tract infections. There has been suspicion for primary ciliary dyskinesia. Previous biopsies were insufficient to make the diagnosis. She has again had chronic respiratory symptoms and is now on prophylactic antibiotics. NARRATIVE: A 3.8 mm flexible bronchoscope was passed through a laryngeal mask airway. The larynx was remarkable for some purulent-appearing secretions anterior to the glottis. The cords appeared normal and were anesthetized with a total of 1 mL of 2% lidocaine. Subglottic space was free of lesions.There was some inflammation of the trachea with some cobblestoning seen over the distal two-thirds.Increased clear secretions were seen throughout. An additional 0.05 mL of 1% lidocaine was instilled at the margarita. The lower bronchial branching pattern was within normal limits. All segments were patent. BAL was performed with 10 mL aliquots of nonbacteriostatic normal saline in the right middle lobe, the right upper lobe and the lingula. There was a return of 12 mL of cloudy fluid. The patienttolerated the procedure well and then proceeded to nasal turbinate biopsy by Dr Spears. COMPLICATIONS: None. SPECIMENS: To microbiology for bacterial and fungal cultures. FINDINGS: Inflammatory changes. No purulent secretions. Unless otherwise noted, there were no complications, no blood loss, no cultures obtained, no specimens removed, and no drains retained. James Franklin MD Dictated by: James Franklin MD 01 52 PM / cs Confirmation: [id number] Dictation ID: [id number] cc:Trell Franklin MD documented in this encounter OR Notes * OR PreOp - Inpatient, Physician - 04/16/2009 1041 EST * OR Surgeon - Felix Spears MD - 04/10/2009 1232 EST ENT Brief Operative Note Surgeon : Felix Spears MD Dispensary Clerk :Dyan Dobson MD Preoperative Diagnosis : Chronic sinusitis Postoperative Diagnosis : same Procedure : Nasal mucosa biopsy Anesthesia :general Findings : none Fluids : IVF - 90cc U/O -NR EBL - 20cc Retained Material / Drains :miracel packing Specimen : L inferior turbinate nasal mucosa biopsy Complications :none Condition :stable Dispo :PACU The patient was position apropriatley. Exposure of her Left inferior turbinate was obtained with a nasal speculum, and under direct inspection a biopsy of the mucosa was obtained using a straight cup. Hemostasis was obtained using suction cautery and a merocel pack was placed in the nose and the string was secured with tape to the bridge of her nose. The specimen was placed in a container with Karnofsky solution for electron microscopy and sent to surgical pathology. The patient tolerated the procedure well. * Anesthesia Procedure Notes - Inpatient, Physician - 04/10/2009 1137 EST * OR PreOp - Inpatient, Physician - 04/10/2009 1122 EST * Anesthesia Preprocedure Evaluation - Inpatient, Physician - 04/10/2009 1036 EST documented in this encounter Miscellaneous Notes * Scanned Note-Null - Inpatient, Physician - 04/16/2009 1041 EST * Scanned Note-Null - Inpatient, Physician - 04/16/2009 1041 EST documented in this encounter Plan of Treatment Upcoming Encounters Date Type Department Care Team (Late st Contact Info) Description 04/24/2024 15:30 EST Telemedicine [facility] Pediatric Pulmonary - [facility] [address] [place] [address] Lucy Rodgers MD [address] [place] [address] documented as of this encounter Procedures Procedure Name Priority Date/Time Associated Diagnosis Comments MISCELLANEOUS TEST, OTHER Routine 04/10/2009 11:00 EST ELECTRON MICROSCOPY Routine 04/10/2009 1 1:00 EST FUNGUS CULTURE, RESPIRATORY Routine 04/10/2009 11:00 EST BACTERIAL CULTURE/SMEAR, RESPIRATORY Routine 04/10/2009 11:00 EST documented in this encounter Results * ELECTRON MICROSCOPY (04/10/2009 11:00 EST) Accession number [id number] FARSHAD DOMINGUEZ Referring Pathologist/Ph ysician ? James Franklin M.D. ? FARSHAD DOMINGUEZ Referring Path/Phys Address [facility] ? [address] ? [place], [place] [address] ? [phone] ? FARSHAD DOMINGUEZ Specimen A:Consult Material ? FARSHAD DOMINGUEZ Material nasal - 1 EM tissue ([id number]) ? SLIDE DISPOSITION: ? 12 EM thicks ret'd 04/17/2009. ??-mjl ? FARSHAD DOMINGUEZ Diagnosis Code [id number], nasal: Interpretation: Non-representativ e biopsy. ? Semi-thin sections demonstrate insufficient numbers of ciliated ? cells to permit evaluation. ??Should additional specimens become ? available for review, we would be willing to reassess the case. ? FARSHAD DOMINGUEZ Signing Pathologist 04/16/2009 16:05 Interpreted by: Jyoti Wang M.D. Report electronically signed by Jyoti Wang M.D. ? Transcribed by: loren 04/16/2009 15:05:35 ? Performed or Referred by: [facility] Dpt of Lab Med and Path, [address] , [place] [address], Lab Dir: Oleg Young III, ? MD ? [facility] 04/10/2009 11:0 0 EST 04/10/2009 17:31 EST us James Franklin MD CHEMISTRY & BLOOD GAS ORDERABLE S Final Result Performing Organization Address [facility] de Phone Number [facility] [address] [place] [address] * MISCELLANEOUS TEST, OTHER (04/10/2009 11:00 EST) 04/10/2009 11:0 0 EST 04/10/2009 14:38 EST James Franklin MD CHEMISTRY & BLOOD GAS ORDERABLE S Final Result Performing Organization Address [facility] de Phone Number [facility] [address] [place] [address] * FUNGUS CULTURE, RESPIRATORY (04/10/2009 11:00 EST) Specimen Description Bronchoalveolar Lavage [facility] Result No fungi isolated [facility] Report Status Final 05/07/2009 [facility] 04/10/2009 11:0 0 EST 04/10/2009 13:32 EST Felix Spears MD MICROBIOLOGY - GENER AL ORDERABLES Final Result Performing Organization Address [facility] de Phone Number [facility] [address] [place] [address] * BACTERIAL CULTURE/SMEAR, RESPIRATORY (04/10/2009 11:00 EST) Specimen Description Bronchoalveolar Lavage [facility] Gram Smear Result Polys present Alveolar macrophages present Respiratory epithelial cells present Gram positive cocci present [facility] Result Less than 10,000 CFU/ml Mixed gram positive and gram negative organisms No Staphylococcus coagulase positive, Haemophilus influenzae, Streptococcus pneumoniae, Moraxella catarrhalis, or Group A beta hemolytic streptococcus isolated. [facility] Report Status Final 04/12/2009 [facility] 04/10/2009 11:0 0 EST 04/10/2009 13:32 EST us Felix Spears MD MICROBIOLOGY - GENER AL ORDERABLES Final Result [facility] [address] [place] [address] documented in this encounter Visit Diagnoses Not on filedocumented in this encounter Administered Medications Inactive Administered Medications - up to 3 most recent administrations Medication Order MAR Action Action Date Dose Rate Site acetaminophen (TYLENOL) solution 176.1 mg 176.1 mg (10 mg/kg ? 17.6 kg), oral, EVERY 4 HOURS PRN, Starting on Wed04/10/09 at 1226, Until Wed04/10/09 at 1524, Pain, Routine Given 04/10/2009 12:35 EST 176.1 mg documented in this encounter Historical Medications * This list may reflect changes made after this encounter. AZITHROMYCIN (ZITHROMAX ORAL) Take 1 tsp by mouth SEE ADMIN INSTRUCTIONS. Takes M-W-F 02/14/2010 LANSOPRAZOLE (PREVACID ORAL) Take 15 mg by mouth 2 times daily. 05/23/2010 LEVALBUTEROL HCL (XOPENEX INHL) Inhale 2 Puffs as directed 2 times daily. 05/23/2010 FLUTICASONE PROPIONATE (FLOVENT HFA INHL) Inhale 2 Puffs as directed 2 times daily. 05/23/2010 ketotifen (ALAWAY) 0.025 % ophthalmic solution Place 1 Drop into both eyes 2 times daily. 01/23/2010 POLYETHYLENE GLYCOL 3350 (MIRALAX ORAL) Take 1 Cap by mouth daily. Varies 1-1/2 caps per day 07/29/2010 06/26/2011 SULFAMETHOXAZOLE /TRIMETHOPRIM (BACTRIM ORAL) Take 1 tsp by mouth daily. 02/13/2010 added in this encounter Active and Recently Administered Medications Times are shown in EST. PRN Medication Order 04/08/2009 04/09/2009 04/10/2009 acetaminophen (TYLENOL) solution 176.1 mg 176.1 mg (10 mg/kg ? 17.6 kg), oral, EVERY 4 HOURS PRN, Starting on Wed04/10/09 at 1226, Until Wed04/10/09 at 1524, Pain, Routine 1235 (Given - Provid er: Yesi Avila)1237 (Hold - Provider: Yeis Avila - Reason: Other) documented in this encounter Orders Medications Ordered That Janes ht Not Have Been Administered Count Last Ordered Date First Ordered Date acetaminophen (TYLENOL) solution 10 mg/kg 1 04/10/2009 Admission Count Last Ordered Date First Orde red Date NOTIFY PPS PATIENT DISCHARGED FROM PACU 1 1 06/10/2008 Discharge Count Last Ordered Date First Orde red Date DISCHARGE PATIENT 1 04/10/2009 documented in this encounter Care Teams Marine Electronics Technician Relationship Specialty Start Date End Date Trell Pittman MD [address] [place] [address] PCP - General 04/10/09 documented as of this encounter
--- OUTSIDE RECORDS SUMMARY | 2024-03-30 21:52 | XMS_ITS | Encounter Summary ---
Author Organization [facility] Address [address] [place] [address] Care Team Providers Care Bilingual Medical Assistant Name Role Phone Gen Jack MD Primary Care Provider Jamaal shi Encounter Details Date Type Department Care Team (Late st Contact Info) Description 11/27/[address] [facility] [address] [phone] James Franklin MD [address] [place] [phone] Social History Tobacco Use Types Packs/Day [...] 04/24/2024 15:[address] [facility] Pediatric Pulmonary - [address] [phone] Lucy Rodgers MD [address] [place] [phone] documented as of this encounter Procedures Procedure Name Priority Date/Time Associated Diagnosis Comments CT CHEST WO CONTRAST 11/27/2008 17:[address] SINUS COMPLETE WO CONTRAST 11/27/2008 17:04 EDT documented in this encounter Results * CT CHEST WO CONTRAST (11/27/2008 17:04 EDT) Anatomical Region Laterality Modality Other 11/27/2008 17:0 4 EDT 11/29/2008 12:02 EDT Narrative 11/29/2008 12:02 EDT Examination: Chest CT without contrast. 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 Technique: A helical CT scan was performed on a multi-detector row CT scanner with 3 mm collimated images obtained from the lung apices through the bases without the use of oral or intravenous contrast material. ??Scans were obtained with the patient breath holding at total lung capacity during the acquisition, and were reconstructed at contiguous intervals for interpretation. Findings: The exam shows a right-sided PICC line, its tip within the right atrium at its junction with the superior vena cava. The chest wall is unremarkable. The heart and pericardium appear normal. There are no obviously enlarged mediastinal or hilar lymph nodes. There are no abnormalities of the mediastinal or hilar vasculature on this unenhanced scan. No pleural abnormalities are seen. Airways and lungs show no abnormalities of the airways. There is no evidence of bronchiectasis. A focal area of lobular consolidation is seen in the left lower lobe in the posterior costophrenic sulcus which could reflect a focal area of pneumonia or atelectasis. A small nodule adjacent to the minor fissure within the middle lobe is likely a subpleural lymph node. Impression: No evidence of bronchiectasis. Small patch of consolidation or atelectasis left lower lobe. ??Right PICC line tip at junction of right atrium with superior vena cava. Procedure Note 11/29/2008 Examination: Chest CT without contrast. 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 Technique: A helical CT scan was performed on a multi-detector row CT scanner with 3 mm collimated images obtained from the lung apices through the bases without the use of oral or intravenous contrast material. Scans were obtained with the patient breath holding at total lung capacity during the acquisition, and were reconstructed at contiguous intervals for interpretation. Findings: The exam shows a right-sided PICC line, its tip within the right atrium at its junction with the superior vena cava. The chest wall is unremarkable. The heart and pericardium appear normal. There are no obviously enlarged mediastinal or hilar lymph nodes. There are no abnormalities of the mediastinal or hilar vasculature on this unenhanced scan. No pleural abnormalities are seen. Airways and lungs show no abnormalities of the airways. There is no evidence of bronchiectasis. A focal area of lobular consolidation is seen in the left lower lobe in the posterior costophrenic sulcus which could reflect a focal area of pneumonia or atelectasis. A small nodule adjacent to the minor fissure within the middle lobe is likely a subpleural lymph node. Impression: No evidence of bronchiectasis. Small patch of consolidation or atelectasis left lower lobe. Right PICC line tip at junction of right atrium with superior vena cava. James Franklin MD IM CT ORDERABLES Final Result * CT SINUS COMPLETE WO CONTRAST (11/27/2008 17:04 EDT) Anatomical Region Laterality Modality Other 11/27/2008 17:0 4 EDT 11/28/2008 10:32 EDT Narrative 11/28/2008 10:[address] PARANASAL SINUSES WITHOUT CONTRAST November 27, 2008 5:04:00 PM Signs and Symptoms: 2 year old female with chronic cough/wheeze. Comparison: None available. Technique: Axial noncontrast CT images of the paranasal sinuses were obtained with coronal reformations. Findings: There is trace mucosal thickening in the maxillary and ethmoid sinuses. No paranasal sinus air-fluid levels are demonstrated. The osteomeatal units are patent bilaterally. There is slight rightward nasal septal deviation. Impression: Trace maxillary and ethmoid sinus mucosal inflammatory change without CT evidence of acute sinusitis. Procedure Note 11/28/2008 CT PARANASAL SINUSES WITHOUT CONTRAST November 27, 2008 5:04:00 PM Signs and Symptoms: 2 year old female with chronic cough/wheeze. Comparison: None available. Technique: Axial noncontrast CT images of the paranasal sinuses were obtained with coronal reformations. Findings: There is trace mucosal thickening in the maxillary and ethmoid sinuses. No paranasal sinus air-fluid levels are demonstrated. The osteomeatal units are patent bilaterally. There is slight rightward nasal septal deviation. Impression: Trace maxillary and ethmoid sinus mucosal inflammatory change without CT evidence of acute sinusitis. James Franklin MD IMG CT ORDERABLES Final Result documented in this encounter Visit Diagnoses Not on filedocumented in this encounter Care Teams Bilingual Medical Assistant Relationship Specialty Start Date End Date Gen Jack MD PCP - General 10/12/08 04/09/09 documented as of this encounter
--- OUTSIDE RECORDS SUMMARY | 2024-03-30 21:52 | XMS_ITS | Encounter Summary ---
Author Organization [facility] Address [address] [place] [address] Care Team Providers Care Single Fold Machine Operator Name Role Phone Trell Pittman MD Primary Care Provider [phone] [phone] Encounter Details Date Type Department Care Team (Latest Contact Info) Description 04/10/2009 13:37 EST - 04/10/2009 23:59 EST Hospital Encounter [facility] Pulmonary Function Lab - [facility] [address] [place] [address] Unknown, Provider, Room-3, Bronch/Stress Discharge Disposition: Home [...] daily. 0 documented as of this encounter Discharge Disposition Disposition Code Departure Means Destination Home or Self Shelter documented in this encounter Plan of Treatment Upcoming Encounters Date Type Department Care Team (Late st Contact Info) Description 04/24/2024 15:30 EST Telemedicine [facility] Pediatric Pulmonary - [address] [phone] Lucy Rodgers MD [address] [place] [phone] Pending Results Name Type Priority Associated Diagnoses Date /Time OUTSIDE CD - OTHER CHEST Imaging 08/24/2009 4:41 EDT OUTSIDE CD - OTHER CHEST Imaging 08/24/2009 4:46 EDT OUTSIDE CD - OTHER CHEST Imaging 08/24/2009 4:54 EDT Scheduled Orders Name Type Priority Associated Diagnoses Orde r Schedule OUTSIDE CD - OTHER CHEST Imaging For medications that can be administered at any time during the hospitalization for visit such as immunizations. for 1 Occurrences starting 08/24/2009 OUTSIDE CD - OTHER CHEST Imaging For medications that can be administered at any time during the hospitalization for visit such as immunizations. for 1 Occurrences starting 08/24/2009 OUTSIDE CD - OTHER CHEST Imaging For medications that can be administered at any time during the hospitalization for visit such as immunizations. for 1 Occurrences starting 08/24/2009 documented as of this encounter Visit Diagnoses Not on filedocumented in this encounter Care Teams Single Fold Machine Operator Relationship Specialty Start Date End Date Trell Pittman MD [address] [place] [address] PCP - General 04/10/09 documented as of this encounter
--- OUTSIDE RECORDS SUMMARY | 2024-03-30 21:52 | XMS_ITS | Encounter Summary ---
Author Organization [facility] Address [address] [place] [address] Care Team Providers Care Certified Physical Therapist Assistant Name Role Phone Unavailable Primary Care Provider Unavailabl e Encounter Details Date Type Department Care Team (Late st Contact Info) Description 05/03/2008 9:22 EST Hospital Encounter [facility] [address] [place] [address] James Franklin MD [address] [place] [phone] Social History Tobacco Use Types Packs/Day Years [...] EST Telemedicine [facility] Pediatric Pulmonary - [facility] [place] [address], [place] [phone] Lucy Rodgers MD [address] [place] [address] documented as of this encounter Procedures Procedure Name Priority Date/Time Associated Diagnosis Comments SWEAT TEST Routine 05/03/2008 11:09 EST documented in this encounter Results * SWEAT TEST (05/03/2008 11:09 EST) Sweat Chloride 16 mEq/L [facility] Comment: Less than 40 mEq/L = Negative 40-60 mEq/L = Borderline Greater than 60 mEq/L = consistent with the diagnosis of cystic fibrosis Sweat chloride values less than 40 mEq/L have been documented in genetically proven CF patients. ??Clinical correlation is necessary. Result must be interpreted with regard to the patient's age and clinical presentation. Sweat Weight 0.2320 gm [facility] Site 1 Right Arm [facility] Sweat Chloride 14 mEq/L [facility] Comment: Less than 40 mEq/L = Negative 40-60 mEq/L = Borderline Greater than 60 mEq/L = consistent with the diagnosis of cystic fibrosis Sweat chloride values less than 40 mEq/L have been documented in genetically proven CF patients. ??Clinical correlation is necessary. Result must be interpreted with regard to the patient's age and clinical presentation. Sweat Weight 0.2287 gm [facility] Collection Site 2 Left Arm [facility] 05/03/2008 11:0 9 EST 05/03/2008 13:09 EST us James Franklin MD CHEMISTRY & BLOOD GAS ORDERABLE S Final Result [facility] [address] [place] [address] documented in this encounter Visit Diagnoses Not on filedocumented in this encounter
--- OUTSIDE RECORDS SUMMARY | 2024-03-30 21:52 | XMS_ITS | Encounter Summary ---
Author Organization [facility] Address [address] [place] [address] Care Team Providers Care Sales Administration Manager Name Role Phone Trell Pittman MD Primary Care Provider [phone] Gen Jack MD Primary Care Provider Trell Domingo MD Primary Care Provider [phone] Gen Jack MD Primary Care Provider Jamaal shi Encounter Details Date Type Department Care Team (Late st Contact Info) Description 08/16/2007 Results Only [facility] [address], [place] [id number] Melody Lyon MD PhD [address] [place] [address] Social History Tobacco Use Types [...] 04/24/2024 15:30 EST Telemedicine [facility] Pediatric Pulmonary - Main [address] [id number] Lucy Rodgers MD [address] [place] [address] [phone] documented as of this encounter Procedures Procedure Name Priority Date/Time Associated Diagnosis Comments COMPLEMENT, TOTAL, SERUM Routine 08/16/2007 11:51 EDT ZZS PNEUM 23 SEROTYPES Routine 08/16/2007 11:51 EDT ZZDIPHTHERIA IGG ANTIBODY Routine 08/16/2007 11:51 EDT IGA Routine 08/16/2007 11:51 EDT COMPLETE BLOOD COUNT AND DIFFERENTIAL Routine 08/16/2007 11:51 EDT IGM Routine 08/16/2007 11:51 EDT IGG Routine 08/16/2007 11:51 EDT documented in this encounter Results * S PNEUM 23 SEROTYPES (08/16/2007 11:51 EDT) Serotype 1 (1) <0.3Unit: ug/mL(Note) -- REFERENCE VALUE -- ? Median 2.0 ? 95% C.I. 8.2 ? [facility] Serotype 2 (2) <0.2Unit: ug/mL(Note) -- REFERENCE VALUE -- ? Median 1.5 ? 95% C.I. 7.4 ? [facility] Serotype 3 (3) <0.1Unit: ug/mL(Note) -- REFERENCE VALUE -- ? Median 2.2 ? 95% C.I. 6.9 ? [facility] Serotype 4 (4) 0.8Unit: ug/mL(Note) -- REFERENCE VALUE -- ? Median 1.1 ? 95% C.I. 4.1 ? [facility] Serotype 5 (5) 0.8Unit: ug/mL(Note) -- REFERENCE VALUE -- ? Median 8.8 ? 95% C.I. 28.8 ? [facility] Serotype 8 (8) 1.1Unit: ug/mL(Note) -- REFERENCE VALUE -- ? Median 4.1 ? 95% C.I. 13.3 ? [facility] Serotype 9N (9) 0.9Unit: ug/mL(Note) -- REFERENCE VALUE -- ? Median 3.7 ? 95% C.I. 16.6 ? [facility] Serotype 12F (12) <0.1Unit: ug/mL(Note) -- REFERENCE VALUE -- ? Median 1.2 ? 95% C.I. 4.3 ? [facility] Serotype 14 (14) 1.2Unit: ug/mL(Note) -- REFERENCE VALUE -- ? Median 6.7 ? 95% C.I. 22.9 ? [facility] Serotype 17F (17) <0.7Unit: ug/mL(Note) -- REFERENCE VALUE -- ? Median 13.1 ? 95% C.I. 44.8 ? [facility] Serotype 19 (19F) 31.6Unit: ug/mL(Note) -- REFERENCE VALUE -- ? Median 3.7 ? 95% C.I. 16.0 ? [facility] Serotype 20 (20) 0.3Unit: ug/mL(Note) -- REFERENCE VALUE -- ? Median 3.0 ? 95% C.I. 12.1 ? [facility] Serotype 22F (22) 3.2Unit: ug/mL(Note) -- REFERENCE VALUE -- ? Median 10.5 ? 95% C.I. 32.4 ? [facility] Serotype 23F (23) 21.8Unit: ug/mL(Note) -- REFERENCE VALUE -- ? Median 13.1 ? 95% C.I. 49.0 ? [facility] Serotype 6B (26) 8.3Unit: ug/mL(Note) -- REFERENCE VALUE -- ? Median 4.1 ? 95% C.I. 15.3 ? [facility] Serotype 10A (34) 1.5Unit: ug/mL(Note) -- REFERENCE VALUE -- ? Median 6.5 ? 95% C.I. 25.5 ? [facility] Serotype 11A (43) 0.8Unit: ug/mL(Note) -- REFERENCE VALUE -- ? Median 1.7 ? 95% C.I. 9.7 ? [facility] Serotype 7F (51) 1.2Unit: ug/mL(Note) -- REFERENCE VALUE -- ? Median 6.2 ? 95% C.I. 30.8 ? [facility] Serotype 15B (54) <0.2Unit: ug/mL(Note) -- REFERENCE VALUE -- ? Median 2.0 ? 95% C.I. 12.8 ? [facility] Serotype 18C (56) 0.9Unit: ug/mL(Note) -- REFERENCE VALUE -- ? Median 1.1 ? 95% C.I. 7.0 ? [facility] Serotype 19A (57) 1.9Unit: ug/mL(Note) -- REFERENCE VALUE -- ? Median 2.6 ? 95% C.I. 28.1 ? [facility] Serotype 9V (68) 1.7Unit: ug/mL(Note) -- REFERENCE VALUE -- ? Median 11.5 ? 95% C.I. 44.0 ? [facility] Serotype 33F (70) <0.2Unit: ug/mL(Note) -- REFERENCE VALUE -- ? Median 1.6 ? 95% C.I. 7.5 ? A new secondary standard reagent is being used for this ? test. This change in reagent means that values for each ? pneumococcal serotype obtained with the present assay ? cannot be directly compared (in absolute numbers) to ? results from previous pneumococcal antibody tests. Direct ? comparisons can be made only if both pre and post- ? vaccination results were obtained before or after ? May 09, 2007. ? Analyte Specific Reagent ? This test was developed and its performance characteristics ? determined by [facility], [place] [facility]. This test has not been cleared or ? approved by the U.S. Food and Drug Administration. ? Performed or Referred by: [facility], [address] ? [place] [address], Lab Dir: Oleg Young III, ? MD ? [facility] 08/16/2007 11:5 1 EDT 08/16/2007 12:11 EDT us Melody Lyon MD PhD IMMUNOLOGY AND SEROLOGY ORDERABLES Final Result [facility] [address] [place] [address] * IGM (08/16/2007 11:51 EDT) IgM 73 46 - 160 mg/dl [facility] 08/16/2007 11:5 1 EDT 08/16/2007 12:11 EDT Melody Lyon MD PhD CHEMISTRY & BLOOD GAS O RDERABLES Final Result Performing Organization Address [facility] de Phone Number [facility] [address] [place] [address] * IGG (08/16/2007 11:51 EDT) IgG 712 407 - 1009 mg/dl [facility] 08/16/2007 11:5 1 EDT 08/16/2007 12:11 EDT Melody Lyon MD PhD CHEMISTRY & BLOOD GAS O RDERABLES Final Result Performing Organization Address [facility] Phone Number [facility] [address] [place] [address] * IGA (08/16/2007 11:51 EDT) IgA 64 14 - 122 mg/dl [facility] 08/16/2007 11:5 1 EDT 08/16/2007 12:11 EDT Melody Lyon MD PhD CHEMISTRY & BLOOD GAS O RDERABLES Final Result Performing Organization Address [facility] Phone Number [facility] [address] [place] [address] * DIPHTHERIA IGG ANTIBODY (08/16/2007 11:51 EDT) Diphtheria Ab IgG 0.58Reference range: >=0.10 Unit: IU/mL Performed by: [facility] [address] , [address] ?? , [place] [address], Lab Dir: ??Mitchel Soto III LAB 08/16/2007 11:5 1 EDT 08/16/2007 12:11 EDT us Melody Lyon MD PhD IMMUNOLOGY AND SEROLOGY ORDERABLES Final Result Performing Organization Address [facility]/ZIP Co de Phone Number [facility] [address] [place] [address] * COMPLEMENT, TOTAL, SERUM (08/16/2007 11:51 EDT) [facility] Complement, Total 58Reference range: 30 to 75 (>= 16 y) Unit: U/mL Performed or Referred by: [facility], [address] ?? , [place] [address], Lab Dir: MD FARSHAD Soto III 08/16/2007 11:5 1 EDT 08/16/2007 12:11 EDT Melody Lyon MD PhD CHEMISTRY & BLOOD GAS O RDERABLES Final Result Performing Organization Address [facility] de Phone Number [facility] [address] [place] [address] * (ABNORMAL) HEMAGRAM AND DIFFERENTIAL (08/16/2007 11:51 EDT) [facility] WBC 4.50(L) 5.5 - 15.5 K/cmm [facility] RBC 4.09 3.90 - 5.30 M/cmm [facility] Hemoglobin 11.9 11.5 - 13.5 gm/dl [facility] HCT 34.0 34.0 - 40.0 % [facility] MCV 83 75 - 87 fl [facility] MCH 29.1 pg [facility] MCHC 35.0 gm/dl [facility] PLT 308 156 - 312 K/cmm [facility] RDW-CV 14.2 % [facility] % Neutrophils 47.6 % [facility] % Lymphocytes 41.2 % [facility] % Monocytes 7.3 % [facility] % Eosinophils 3.5 % [facility] % Basophils 0.4 % [facility] ABS Neutrophils 2.14 K/cmm [facility] ABS Lymphs 1.86 K/cmm [facility] ABS Monocytes 0.33 K/cmm [facility] ABS Eosinophils 0.16 K/cmm [facility] ABS Basophils 0.02 K/cmm [facility] Type of Diff: Automated [facility] 08/16/2007 11:5 1 EDT 08/16/2007 12:11 EDT Melody Lyon MD PhD PACKAGES & DNA PROBE OR DERABLES Final Result [facility] [address] [place] [address] documented in this encounter Visit Diagnoses Not on filedocumented in this encounter Care Teams Sales Administration Manager Relationship Specialty Start Date End Date Trell Pittman MD [address] [place] [address] PCP - General 04/10/09 Gen Jack MD PCP - General 10/12/08 04/09/09 Trell Pittman MD [address] [place] [address] PCP - General 10/05/08 10/11/08 Gen Jack MD PCP - General 09/06/08 10/04/08 documented as of this encounter
--- OUTSIDE RECORDS SUMMARY | 2024-03-30 21:52 | XMS_ITS | Encounter Summary ---
Author Organization [facility] Address [address] [place] [address] Care Team Providers Care Physician Office Specialist Name Role Phone Unavailable Primary Care Provider Unavailabl e Encounter Details Date Type Department Care Team (Late st Contact Info) Description 10/18/2006 10:38 EDT - 10/18/2006 11:59 EDT Hospital Encounter [facility] Perioperative Services- [address] [address] Felix Spears MD [address] [place] [address], [address] [place] [phone] Discharge Disposition: Home or Self [...] encounter OR Notes * OR Surgeon - Glenn Cintron - 10/18/2006 0000 EDT PROCEDURE REPORT PT TYPE: OPPROC SERVICE DATE: 10/18/2006 SURGEON: MELINDA Kulkarni MDPeter Kasznica, MDRichard N Hubbell, MD ACCOUNT ADJUSTER: MD Saida PREOPERATIVE DIAGNOSIS Recurrent otitis media and adenoiditis. POSTOPERATIVE DIAGNOSIS Recurrent otitis media and adenoiditis. PROCEDURE Bilateral myringotomy with placement of José Manuel Activent type ventilatory tubes and adenoidectomy. ANESTHESIA General inhalational anesthesia via laryngeal mask airway. INDICATIONS The patient is a 1??-year-old female with a history of adenoiditis and recurrent otitis media. FINDINGS 1. The adenoids were hypertrophic. 2. There were old long stalk tympanostomy tubes in both ears. The one in the left ear was still in place, but nonfunctioning. These were removed and there was mucoid fluid in the right ear. This was suctioned out prior to insertion of the new tubes. NARRATIVE After inductionof adequate general endotracheal anesthesia, the patient's ears were examined under the operating microscope and an appropriate-sized speculum placed. Cerumen was debrided from each ear bilaterally. The tympanic membranes were visualized and an anteriormid-position myringotomy was made. An Activent José Manuel PE tube was placed bilaterally without complications. After assuring adequatehemostasis of the myringotomy sites, the patient was then repositioned in the Chloe position. The Lalo-Pavel mouth gag was inserted. A red rubber catheter was passed into the patient's right naris and grasped in the posterior pharynx with a pair of Kellys. This was used to elevate the soft palate to expose the adenoidal tissue. With electrocautery set at 45 mcdonough and with the aid of indirect mirror examination, the adenoidal tissue was electrocauterized. The posterior pharynx and both nasal cavities were then suctioned with the red rubber catheter. The Lalo-Pavel mouth gag was removed. The patient was extubated and taken to the recovery room in stable condition. There were no complicationsto the case. Dr. Spears was present for the entirety of this case in the OR. ESTIMATED BLOOD LOSS Less than 5 ml. FLUIDS About 100 ml of lactated Ringers/crystalloid. I was present during the entire procedure. Signed by Felix Spears MD 10/20/2006 08:25 Sandrine Kulkarni MDRichard N Hubbell, MD Dictated by: Glenn Cintron MD Felix Spears MD - Glenn Cintron MD Todd - alfredo Job ID: [id number] Document ID: [id number] cc: MD Glenn Rosas MD Mark Price, MD documented in this encounter Plan of Treatment Upcoming Encounters Date Type Department Care Team (Late st Contact Info) Description 04/24/2024 15:30 EST Telemedicine [facility] Pediatric Pulmonary - Main [address] [phone] Lucy Rodgers MD [address] [place] [address] [phone] documented as of this encounter Visit Diagnoses Not on filedocumented in this encounter
--- OUTSIDE RECORDS SUMMARY | 2024-03-30 21:52 | XMS_ITS | Encounter Summary ---
Author Organization [facility] Address [address] [place] [address] Care Team Providers Care Cover Mat Machine Operator Name Role Phone Unavailable Primary Care Provider Unavailabl e Encounter Details Date Type Department Care Team (Late st Contact Info) Description 02/11/2007 8:59 EDT Hospital Encounter [facility] [place] [address] [place] [address] Felix Spears MD [address] [place] [address], [address] [place] [phone] Social History Tobacco Use Types [...] Description 04/24/2024 15:30 EST Telemedicine [facility] Pediatric Pulmonary - [address] [address] Lucy Rodgers MD [address] [place] [address] [phone] documented as of this encounter Visit Diagnoses Not on filedocumented in this encounter
--- OUTSIDE RECORDS SUMMARY | 2024-03-30 21:52 | XMS_ITS | Encounter Summary ---
Author Organization [facility] Address [address] [place] [address] Care Team Providers Care Deputy Assessor Name Role Phone Unavailable Primary Care Provider Unavailabl e Encounter Details Date Type Department Care Team (Late st Contact Info) Description 08/12/2007 10:33 EDT Hospital [facility] [facility] [address] [place] [address] Felix Spears MD [address] [place] [address], [address] [place] [phone] Social History Tobacco Use Types [...] 15:30 EST Telemedicine [facility] Pediatric Pulmonary - [address] [address] Lucy Rodgers MD [address] [place] [phone] documented as of this encounter Visit Diagnoses Not on filedocumented in this encounter
--- OUTSIDE RECORDS SUMMARY | 2024-03-30 21:52 | XMS_ITS | Encounter Summary ---
Author Organization [facility] Address [address] [place] [address] Care Team Providers Care Automatic Washer Mechanic Name Role Phone Unavailable Primary Care Provider Unavailabl e Encounter Details Date Type Department Care Team (Late st Contact Info) Description 07/12/2008 13:[address] [facility] [address] [place] [address] Felix Spears MD [address] [place] [address], [address] [place] [phone] Social History Tobacco Use Types [...] Contact Info) Description 04/24/2024 15:30 EST Telemedicine [facility] [address] [place] [address] Lucy Rodgers MD [address] [place] [phone] documented as of this encounter Procedures Procedure Name Priority Date/Time Associated Diagnosis Comments CYTOPATHOLOGY Routine 11/02/2008 0:00 EDT SURGICAL PATHOLOGY Routine 11/02/2008 0:00 EDT documented in this encounter Results * SURGICAL PATHOLOGY (11/02/2008 0:00 EDT) Pathology Report: SURGICAL PATHOLOGY REPORT ? Reports generated via electronic interface contain original data; ? however they are lacking the format of the original report. ? Caution should be taken when reading/interpreti ng unformatted reports. ? Name: ? ROSARIO HART ? Accession #: ? [id number] ? : ? 2005 (Age: 2) ??F ?Collect Date: ? 11/02/2008 ? Location: ? [facility] ? Receive Date: ? 11/02/2008 ? Provider: ALBIN CHILD MD ? Copy to: ? SEND OUT TEST SUMMARY REPORT ? Date Ordered: ? 11/02/2008 ? Status: ?? Signed Out ?Date Complete: ? 12/10/2008 ? By: ??Stephanie J. Kilgore ? Date Reported: ? 12/11/2008 ? Interpretation ? Nasal ciliary brush and tracheal biopsy: ? - Non-employment representative biopsy for electron microscopy analysis. ??See comment. ? Comment ? This case was sent to the [facility] for possible electron microscopy. ? Their electron microscopy number is [id number]. ??The semi-thin stained ? sections demonstrate insufficient numbers of ciliated cells to permit ? evaluation. ??The sections contain squamous metaplastic cells as well as mucinous type epithelial cells, inflammatory cells, and mucus. ??The [facility] comments that should additional specimens become available for review, we would be ? willing to reassess the case. ??This interpretation was rendered by Dr. Lorraine Florez ?? Felipe on November 22, 2008. ??Slides of the semi-thin sections are retained at ?? [facility]. ??(Dr. Desir)/alfredo ? Description ? Received: ? Nasal ciliary brush & tracheal biopsy for ciliary ultrastructural ? analysis (EM) ? Clinical History: ? Recurrent infections, cough and wheeze; R/O PCD ? Gross description: ? Received in Sanchez's fixative labelled Rosario Hart are two ? yellow, slightly red-tinged cytology brushes. ??In addition, there are two ? juan-white pieces of tissue which measure no greater than 0.1 cm in greatest ? dimension. ??The specimen is sent to [facility] for ? ultrastructural analysis as requested by Dr. Child. ??(Son Garza/eliana ? Document reviewed and electronically signed by: ? Caren C. Desir, MD ? Report date: 12/11/2008 ? By the signature above, the attending physician certifies that he/she has ? personally conducted a gross and/or microscopic examination of the described ? specimens and rendered or confirmed the above diagnosis. ? End of Report ? [facility] 11/02/2008 11/02/2008 10: 30 EDT us Albin Child MD PATHOLOGY ORDERABLES Final Resu lt [facility] [address] [place] [address] * CYTOPATHOLOGY (11/02/2008 0:00 EDT) Pathology Report: CYTOPATHOLOGY REPORT ? Reports generated via electronic interface contain original data; ? however they are lacking the format of the original report. ? Caution should be taken when reading/interpretin g unformatted reports. ? Name: ? TANNER, ROSARIO A ? Accession #: ? [id number] ? : ? 2005 (Age: 2) ??F ?Collect Date: ? 11/02/2008 ? Location: ? [facility] ? Receive Date: ? 11/02/2008 ? Provider: ? ALBIN CHILD MD ? Copy to: ?VIRGIE MCCLURE MD ? Specimen Type: ? Bronchial Lavage ? Clinical History: ? Persistent cough and wheeze, recurrent infection; R/O aspiration ? Gross Description: ? 5 cc' s of opaque juan fluid were received and processed by selective ? cellular enhancement technique. ? CYTOLOGIC DIAGNOSIS: ? Lung, bronchioalveolar lavage, cytologic evaluation: ? 1. ?No malignant cells identified. ? 2. ? Reactive bronchial cells, abundant alveolar macrophages and acute ? inflammation present. ? 3. ? No viral changes identified. ? 4. ? Oil Red O stain for lipid laden macrophages with a macrophage index of 64 (out of 400). ??See comment. ? COMMENT: ? According to Anupam, if a patient has a low lipid laden ? macrophage index (on Oil Red O stain), they would not believe that aspiration is the cause of respiratory problems; however, if the index is 90 or above, they ?? would be strongly suspicious of recurrent aspiration. ??(Dr. Desir)/tmg ? REFERENCE: ? James Moore, Manny Pearce, Pediatric Pulmonology, 3:86-89, 1987. ? Document reviewed and electronically signed by: ? Caren Desir MD ? Report Date: ??11/02/2008 18:04 ? By the signature above, the attending physician certifies that he/she has ? personally conducted a gross and/or microscopic examination of the described ? specimens and rendered or confirmed the above diagnosis. ? End of Report ? [facility] 11/02/2008 11/02/2008 9:5 0 EDT us Albin Child MD PATHOLOGY ORDERABLES Final Resu lt [facility] [address] [place] [address] documented in this encounter Visit Diagnoses Not on filedocumented in this encounter
== END 2024-03-30 21:41 | disposition home or self-care (01) ==
LOC: ER 21:45
PROVIDERS: Emergency Provider Physician Assistant; PCP Pediatrics
DX: S43.402A Unspecified sprain of left shoulder joint, initial encounter (principal); X50.0XXA Overexertion from strenuous movement or load, initial encounter
CPT/HCPCS: 99283

== ENCOUNTER 2024-05-13 15:32 | Outpatient (REF) | payer MEDICAID, SELFPAY | END 2024-05-13 15:33 | disposition home or self-care (01) | LOC: LBN 15:32 | PROVIDERS: PCP Pediatrics; Visit Provider Physician Assistant | DX: J02.9 Acute pharyngitis, unspecified (principal) | CPT/HCPCS: 87070 ==

== ENCOUNTER 2024-05-15 15:01 | Outpatient (CLI) | payer MEDICAID, SELFPAY ==
--- NOTE | 2024-05-15 11:22 | DI.RAD_ITS ---
Exam(s) XR CHEST 2V PA LATERAL EXAM: XR CHEST 2V PA LATERAL CLINICAL HISTORY: cough, r/o pneumonia R05.9. TECHNIQUE: 2D digital imaging was performed. COMPARISON: CR,XR XR PORTABLE CHEST AP from 07/28/2022 FINDINGS: 2 views: Heart size is normal. The mediastinum is not widened. Lungs are clear. No infiltrates nor pleural effusions. IMPRESSION: No acute pulmonary findings. DATA REPOSITORY: RADIATION DOSE DELIVERED:
== END 2024-05-15 15:21 ==
PROVIDERS: PCP Pediatrics; Visit Provider Physician Assistant
DX: R05.9 Cough, unspecified (principal)
CPT/HCPCS: 71046

== ENCOUNTER 2024-05-23 17:44 | Outpatient (REF) | payer MEDICAID, SELFPAY ==
[2024-05-23 09:53] LABS: Abs Immature Grans 0.01 10^3/uL (0.0-0.06); Absolute Basophil Count 0.04 10^3/uL (0.0-0.2); Absolute Eosinophil Count 0.15 10^3/uL (0.0-0.7); Absolute Lymphocyte Count 1.74 10^3/uL (1.2-3.4); Absolute Monocyte Count 0.42 10^3/uL (0.1-0.8); Absolute Neutrophil Count 2.59 10^3/uL (1.2-6.7); Basophils % 0.8 %; HCT 40.5 % (36.0-46.0); HGB 13.5 g/dL (11.2-15.7); Immature Grans % 0.2 %; Lymphocytes % 35.2 %; MCH 29.9 pg (27.0-33.0); MCHC 33.3 % (32.0-36.0); MCV 90 fL (80-95); MPV 9.3 fL (8.0-11.0); Monocytes % 8.5 %; Neutrophils % 52.3 %; Platelet Count 315 10^3/uL (130-400); RBC 4.51 10^6/uL (3.93-5.22); RDW 13.2 % (11.7-14.6); RDW-SD 43.3 fL; WBC 4.95 10^3/uL (4.4-10.8)
[2024-05-24 09:09] LABS: IgE 768 IU/mL (<158)
[2024-05-25 12:14] LABS: Aspergillus Fumigatus IgE <0.10 kU/L (<0.70); Aspergillus Niger, IgE <0.10 kU/L (<0.70); Canary Feathers IgE <0.10 kU/L (<0.70); Candida Albicans (Monilia),IgE 0.31 kU/L (<0.70); Cat Epithelium IgE 0.16 kU/L (<0.70); Cedar, IgE <0.10 kU/L (<0.70); Chicken Feathers IgE <0.10 kU/L (<0.70); Cladosporium IgE <0.10 kU/L (<0.70); Cockroach IgE 3.12 kU/L (<0.70); D Farinae IgE 77.6 kU/L (<0.70); D Pteronyssinus IgE >=100 kU/L (<0.70); Eastern Sycamore IgE <0.10 kU/L (<0.70); False Ragweed, IgE <0.10 kU/L (<0.70); Giant Ragweed IgE 0.37 kU/L (<0.70); Goldenrod IgE 0.13 kU/L (<0.70); Horse Dander, IgE <0.10 kU/L (<0.70); Penicillium chrysogenum IgE <0.10 kU/L (<0.70); Silver Birch IgE <0.10 kU/L (<0.70)
[2024-05-25 12:24] LABS: Mouse Serum Protein IgE <0.10 kU/L (<0.70); Spruce, IgE <0.10 kU/L (<0.70)
[2024-05-31 17:55] LABS: CLASS 0; Cedar Red IgE <0.10 kU/L (<0.35)
== END 2024-05-23 17:45 | disposition home or self-care (01) ==
LOC: LBN 17:44
PROVIDERS: PCP Pediatrics; Visit Provider Physician Assistant Surgical
DX: J30.2 Other seasonal allergic rhinitis (principal); J45.40 Moderate persistent asthma, uncomplicated; Q34.8 Other specified congenital malformations of respiratory system
CPT/HCPCS: 86003; 82785; 84307; 85025

== ENCOUNTER 2024-07-03 01:18 | Outpatient (CLI) | payer MEDICAID, SELFPAY ==
--- NOTE | 2024-07-03 07:15 | DI.RAD_ITS ---
Exam(s) XR FOOT LT COMPLETE EXAM: XR FOOT LT COMPLETE CLINICAL HISTORY: Left foot pain,m79.672. TECHNIQUE: 2D digital imaging was performed of the left foot. Three images were obtained. AP, obli que and lateral views were obtained. COMPARISON: No exams were available for comparison FINDINGS: BONES: No acute fracture is present. No bony destructive lesion is seen. JOINTS: No dislocation present. The 1st MTP angle is at the upper limits of normal in size. SOFT TISSUE: Normal. IMPRESSION: Unremarkable radiographs of the left foot. DATA REPOSITORY: RADIATION DOSE DELIVERED:
--- NOTE | 2024-07-03 07:15 | DI.RAD_ITS ---
Exam(s) XR FOOT RT COMPLETE EXAM: XR FOOT RT COMPLETE CLINICAL HISTORY: Right foot pain,m79.671. TECHNIQUE: 2D digital imaging was performed of the right foot. Three images were obtained. AP, obl ique and lateral views were obtained. COMPARISON: CR XR ANKLE RT COMPLETE from 09/14/2022 FINDINGS: BONES: No acute fracture is present. No bony destructive lesion is seen. JOINTS: No dislocation present. The 1st MTP angle is at the upper limits of normal. The joint spaces are well maintained. SOFT TISSUE: Normal. IMPRESSION: Unremarkable radiographs of the right foot. DATA REPOSITORY: RADIATION DOSE DELIVERED:
== END 2024-07-03 01:38 ==
LOC: DI 01:18
PROVIDERS: PCP Pediatrics; Visit Provider Podiatrist
DX: M79.671 Pain in right foot (principal); M79.672 Pain in left foot
CPT/HCPCS: 73630

== ENCOUNTER 2024-11-11 14:42 | Outpatient (REF) | payer MEDICAID, SELFPAY ==
[2024-11-11 17:14] LABS: Bilirubin Negative (Negative); Blood Moderate (Negative); Clarity Clear (Clear); Glucose Negative (Negative); Ketones Negative (Negative); Leukocyte Esterase Negative (Negative); Nitrite Negative (Negative); Urobilinogen 0.2 mg/dL (Up to 0.2); pH 7.5 (5-8)
[2024-11-11 18:45] LABS: Bacteria Moderate HPF (Negative); C & S Indicated? No/Sq. Contamination; Casts Negative LPF (Negative); Crystals Negative HPF (Negative); Epithelial Cells Moderate HPF (Negative); Mucus Trace (Negative); RBC 20-50 HPF (0-2)
== END 2024-11-11 14:43 | disposition home or self-care (01) ==
LOC: LBN 14:42
PROVIDERS: PCP Pediatrics; Visit Provider Physician Assistant
DX: R30.0 Dysuria (principal)
CPT/HCPCS: 81003; 81015

== ENCOUNTER 2024-12-25 10:55 | Emergency (ER) | payer MEDICAID, SELFPAY ==
[2024-12-25 10:57] VITALS: BP 119/73; PULSE 80; RESP 18; O2SAT 96
--- NOTE | 2024-12-25 11:00 | DI.RAD_ITS ---
Exam(s) XR SACRUM COCCYX EXAM: XR SACRUM COCCYX CLINICAL HISTORY: fall onto tailbone. TECHNIQUE: 2D digital imaging was performed. COMPARISON: No exams were available for comparison FINDINGS: BONES: No acute fracture is present. No bony destructive lesion is seen. JOINTS: The SI joints and visualized portions of the hip joints are unremarkable. SOFT TISSUE: Normal. IMPRESSION: Unremarkable radiographs of the sacrum and coccyx DATA REPOSITORY: RADIATION DOSE DELIVERED:
[2024-12-25] MEDS: Ibuprofen 600 MG TAB PO (11:38)
[2024-12-25] MEDS: Acetaminophen 500 MG TAB 1000 MG PO (11:38)
[2024-12-25] MEDS: Lidocaine 5% Patch 1 PATCH TP (11:39)
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
== END 2024-12-25 12:38 | disposition home or self-care (01) ==
PROVIDERS: Emergency Provider Emergency Medicine; PCP Pediatrics
DX: S30.0XXA Contusion of lower back and pelvis, initial encounter (principal); W19.XXXA Unspecified fall, initial encounter
CPT/HCPCS: 99283 ×2; 81025; 72220